=== PATIENT | female | born 1955 | race Caucasian/White ===

== ENCOUNTER → 2017-03-24 09:53 | Outpatient (CLI) | payer MEDICARE, SELFPAY ==
--- NOTE | 2017-03-25 15:40 | PFTCOMP ---
COMPLETE PULMONARY FUNCTION TEST INTERPRETATION Brief HPI: Patient is a 62 year old female, currently under the care of Dr. Leblanc, who presents to [facility] for complete pulmonary function tests secondary to diagnosis of asthma. Respiratory therapist reports good effort and reproducible results. Interpretation: Forced expiration spirometry shows no large airways obstructive ventilatory defect with an FEV1 of 78 % predicted. There is no significant bronchodilator response by ATS criteria. Spirograms are of good quality and plateau slowly, indicating slowly emptying areas of the lungs. The respiratory flow volume loop shows decreased expiratory flow rates at high lung volumes consistent with small airways obstruction. Lung volumes by body plethysmography show a normal total lung capacity at 4.73 L, 97 % predicted. All other lung volumes are within normal limits. Diffusion capacity by carbon monoxide is normal at 74 % predicted. The airway resistance is slightly elevated. Compared to previous pulmonary function tests from 02/08/2016, there has been a significant change in FVC and DLCO. Impression: Grossly normal pulmonary function test with stigmata of small airways disease. There has been worsening in FVC and DLCO compared to previous testing
== END ==
PROVIDERS: Family Provider Internal Medicine; PCP Internal Medicine; Visit Provider Internal Medicine Critical Care Medicine
DX: J45.909 Unspecified asthma, uncomplicated (principal)
CPT/HCPCS: 94060; 94726; 94729

== ENCOUNTER 2017-04-14 16:12 | Emergency (ER) | payer MEDICARE, SELFPAY ==
[2017-04-14 16:13] VITALS: BP 161/83; PULSE 94; RESP 17; TEMP 36.3; O2SAT 97; BMI 34.2
--- NOTE | 2017-04-14 16:33 | CT_ITS ---
STUDY: CT ABDOMEN AND PELVIS WITH CONTRAST REASON FOR EXAM: Female, 62 years old. Lower abdominal pain and nausea, history of Crohn's RADIATION DOSAGE (If Supplied By Facility): CTDIvol = ( 16.01 ) mGy, DLP = ( 1176.30 ) mGycm TECHNIQUE: Transaxial images were obtained from the dome of the diaphragm to the symphysis pubis with oral contrast. 100CC ml of Isovue 300 contrast was administered. Sagittal and coronal images were reconstructed. Individualized dose optimization techniques were used for this CT. COMPARISON: None. FINDINGS: There are mild streaky fibrotic changes of the right middle lobe and right lower lobe. The visualized portions of the heart are within normal limits. Normal liver. Normal gallbladder and extrahepatic biliary system. Normal spleen. Normal pancreas. Normal bilateral adrenal glands. Normal right kidney. Normal left kidney. Normal visualized stomach. There are several mildly distended small bowel loops with air-fluid levels in the mid anterior right abdomen. There is mild short segment wall thickening of one of these loops of bowel best seen on axial images 59 and 60. There is scattered colonic diverticuli with no evidence of associated diverticulitis. The appendix is visualized and appears normal. There are calcified plaques of the abdominal aorta. Normal inferior vena cava. Normal retroperitoneum. Normal urinary bladder. Status post hysterectomy changes are noted. A metallic foreign body is seen in the right adnexa consistent with a tubal ligation clip. There is a tiny amount of free fluid in the deep pelvis. Normal abdominal wall. There are status post posterior spinal fusion changes with interpeduncular screws from the L4-S1 level. There are degenerative changes of the visualized lower thoracic spine. CT/Abdomen/Pelvis WITH Contrast IMPRESSION: 1. Several mildly distended small bowel loops with air-fluid levels in the mid anterior right abdomen, with mild short segment wall thickening of one of these loops of bowel. This finding would be compatible with the clinical history of Crohn's disease. 2. Status post hysterectomy. Metallic foreign body seen in the right adnexa consistent with a tubal ligation clip. 3. There is a tiny amount of free fluid in the deep pelvis. 4. Status post posterior spinal fusion changes with interpeduncular screws from the L4-S1 level. Electronically Signed: Jostin Shukla MD at 18:52 EST , Service support ,
[2017-04-14 16:50] LABS: Absolute Lymphocyte Count 3.08 X10^3/ul (0.83-4.51); Basophil# 0.02 X10^3/uL; Basophil% 0.2 % (0-1); Eosinophil# 0.24 X10^3/uL; Eosinophils% 2.2 % (0-5); Hematocrit 41.7 % (37-47); Hemoglobin 13.6 g/dl (12.0-15.0); Lymphocyte # 3.08 X10^3/ul (4.0); Lymphocyte % 28.2 % (19-41); Mean Corp Hgb Conc 32.6 g/gl (32-36); Mean Corpuscular Hgb 28.3 pg (27.0-32.0); Mean Corpuscular Volume 86.9 fL (81-99); Monocyte# 0.63 X10^3/uL; Monocyte% 5.8 % (0-10); Neutrophil # 6.95 X10^3/uL (2.7-7.7); Neutrophil % 63.4 % (47-70); Platelet Count 325 K/mm3 (150-450); RBC Distribution Width CV 14.5 % (11.6-14.6); RBC Distribution Width SD 45.9 fl (35.1-43.9); White Blood Count 10.9 K/mm3 (4.4-11.0)
[2017-04-14] MEDS: Ondansetron 4 MG/2 ML Vial IV ×2 (16:54→19:29)
[2017-04-14] MEDS: 0.9% Normal Saline 1,000 ML 1000 ML IV (16:55)
[2017-04-14 16:57] LABS: POSITIVE COUNT NO; POSITIVE DIFFERENTIAL NO; POSITIVE MORPHOLOGY NO
[2017-04-14 17:09] LABS: Anion Gap 7 (5-15); BUN 14 mg/dL (7-18); BUN/Creat Ratio 15.4 RATIO (10-20); Calcium,Total 9.3 mg/dL (8.5-10.1); Chloride 104 mmol/L (98-107); Creatinine, Serum 0.91 mg/dL (0.55-1.02); EST Glomerular Filtration Rate 67 mL/min (>60); Est Glom Filt Rate - Afr Amer 81 mL/min (>60); Estimated Creatinine Clearance 56.77 ml/min; Glucose 113 mg/dL (74-106); Potassium 3.8 mmol/L (3.5-5.1); Sodium Level 140 mmol/L (136-145)
--- NOTE | 2017-04-14 17:15 | ED.VISSUMM ---
- ER Visit Summary Date of Service: 04/14/17 Chief Complaint: Abdominal pain History of Present Illness: The patient is a [address] Dickson. She reports she has lower abdominal pain that began yesterday. She reports it is a constant aching pain with episodes of severe cramping. Pain is 9 out of 10 at worst and 8 out of 10 currently. Is worsened by movement or standing. It is relieved by laying down remaining still. She has had nausea without vomiting. She reports her last bowel movement was today. She has had no melena or hematochezia. She has had frequent urination for the past 2 days. No dysuria or hematuria. No fever or chills. Physical Examination: Vitals: Stable. Afebrile. General: Well-nourished and well-developed. Head: Normocephalic atraumatic. Neck: Supple, no lymphadenopathy. No JVD. Nontender. Cardiovascular: Regular rate and rhythm. No murmurs. Respiratory: No respiratory distress. Clear to auscultation bilaterally. Abdominal: Soft, mild tenderness palpation is diffuse over her lower abdomen, this is worst in the left lower quadrant, nondistended, normal bowel sounds. No guarding, rebound, or peritoneal signs. Back: Nontender. Extremities: Nontender, no edema. Skin: Normal color, no rash. Neurologic: Alert and oriented ?3. Cranial nerves II through XII are intact. Normal strength and sensation. Psych: Normal affect. Test Results: CBC is normal. Chem-7 is marked for glucose of 113. Urinalysis is negative. CT abdomen pelvis with p.o. and IV contrast shows normal appendix. It shows several mildly distended small bowel loops with air-fluid levels with mild short segment wall thickening of 1 of these loops. This is compatible with her history of Crohn's disease. Emergency Department Course and Treatment: Patient had an IV placed. She was given a liter of normal saline. She is given morphine and Zofran IV. She is resting comfortably. I again discussed the possibility of Crohn's with the patient. She states that she had a colonoscopy 2 years ago that did not show Crohn's disease and she has never been told she has Crohn's disease. Treatment Plan: At this time I do not have a good explanation for the findings on the CT. She was discussed with Dr. Crenshaw who is not familiar with her. The patient feels well and would like to go home. She be discharged instructions to follow-up with Dr. Dickson tomorrow for further evaluation and potential referral to gastroenterology. She should also be able to get the results of her colonoscopy and reviewed this. She given a prescription for Percocet and Zofran. Return to the emergency department for any worsening symptoms. Disposition: To home in improved and stable condition. Impression: 1. Abdominal pain, uncertain cause. This note was generated with [employer] dictation software. It may contain incorrect words, spelling, and punctuation that were not noted in review of the chart prior to signing ED Disposition - Plan for ED Patient: Disposition: Home or Assisted Living Chief Complaint: Abd Pain Instructions: ED Abdominal Pain Unkn Cause Prescriptions: Oxycodone HCl/Acetaminophen [Percocet 5/325] 1 tablet PO Q6H PRN PRN 5 Days #20 tablet PRN Reason: Pain Ondansetron [Zofran Odt] 4 mg PO Q8H PRN PRN #10 tablet PRN Reason: Nausea Referrals: Elin Dickson DO [Primary Care Provider] - 1 Day for another exam
[2017-04-14 18:29] LABS: Mucous, Urine 0 SEEN /hpf (<or=2+); Red Blood Cells-Urine 0 SEEN /hpf (0-5)
[2017-04-14 18:33] LABS: Color, Urine Straw (Yellow); Glucose, Dipstick Normal (Normal); Ketone-Dipstick Negative (Negative); Leukocyte Esterase-Dipstick 25 /ul (Negative); Nitrite-Dipstick Negative (Negative); Occult Blood-Urine Negative /ul (Negative); Protein-Dipstick Negative (Negative); Urine Bilirubin Dipstick Negative (Negative); Urine Clarity Cloudy (Clear); Urine Urobilinogen Normal (Normal); Urine pH 6.5 (5.0 - 8.0)
[2017-04-14 18:53] LABS: Bacteria 1+ /hpf (None Seen); Squamous Epithelial Cells - UA 5-10 SEEN /hpf (5-10); White Blood Cells 0-5 SEEN /hpf (0-5)
[2017-04-14 19:04] VITALS: BP 161/80; PULSE 81; RESP 16; O2SAT 97
[2017-04-14 19:42] VITALS: BP 128/73; PULSE 75; RESP 18; O2SAT 97
== END 2017-04-14 19:46 | disposition home or self-care (01) ==
LOC: ED 17:20
PROVIDERS: Emergency Provider Emergency Medicine; Family Provider Internal Medicine; PCP Internal Medicine
DX: R10.32 Left lower quadrant pain (principal); R10.31 Right lower quadrant pain; I10 Essential (primary) hypertension; E78.00 Pure hypercholesterolemia, unspecified; J44.9 Chronic obstructive pulmonary disease, unspecified; K21.9 Gastro-esophageal reflux disease without esophagitis; Z90.710 Acquired absence of both cervix and uterus; Z79.899 Other long term (current) drug therapy
CPT/HCPCS: 74177; 80048; 81001; 85025; 96361; 96374; 96375; 96376; 99283; J7030; Q9967; A4216; J2405

== ENCOUNTER → 2017-04-28 11:48 | Outpatient (CLI) | payer MEDICARE, SELFPAY ==
--- NOTE | 2017-04-28 11:52 | RAD_ITS ---
STUDY: X-RAY - LEFT SHOULDER REASON FOR EXAM: Female, 62 years old. Persistent shoulder pain one week after injury TECHNIQUE: 4 view(s) of the shoulder. COMPARISON: None. FINDINGS: Normal glenohumeral articulation. Normal acromioclavicular joint. Normal acromion. Normal humeral head and visualized proximal humerus. Submillimeter calcific density at the margin of the greater tubercle consistent with a focal avulsion injury versus chronic calcific tendinitis. There is no demonstrated osseous destructive lesion. Normal visualized pulmonary apex. RAD/Shoulder min 2 Views IMPRESSION: Submillimeter cortical avulsion injury versus chronic calcific tendinitis at the margin of the greater tubercle. Electronically Signed: Armin Novak MD at 12:34 EDT , Service support ,
== END ==
PROVIDERS: Family Provider Internal Medicine; PCP Internal Medicine; Visit Provider Internal Medicine
DX: M25.512 Pain in left shoulder (principal)
CPT/HCPCS: 73030

== ENCOUNTER → 2017-05-05 17:41 | Outpatient (CLI) | payer MEDICARE, SELFPAY ==
--- NOTE | 2017-05-05 18:15 | MRI_ITS ---
STUDY: MRI LEFT SHOULDER REASON FOR EXAM: Female, 62 years old. Pain. Fall. TECHNIQUE: Standardized fat and water weighted pulse sequences were obtained in all 3 orthogonal planes. COMPARISON: X-ray April 16, 2017. FINDINGS: Tendinosis with thickening and high-grade bursal surface and intrasubstance distal tendon tear, series 6 image . There is infraspinatus tendinosis with tendon thickening, but without a demonstrated tendon tear. Normal subscapularis tendon. Normal teres minor tendon. Normal supraspinatus muscle. Normal infraspinatus muscle. Normal subscapularis muscle. Normal teres minor muscle. There is a small volume joint effusion of the glenohumeral joint. Normal humeral head and visualized proximal humerus. Normal biceps labral complex. Normal intracapsular long biceps tendon. Normal labrum. Normal capsulo- ligamentous complex. Normal rotator interval. There is mild osteoarthritis of the acromioclavicular articulation. There is a Type II morphology (curved) acromion, with a neutral orientation. There is minimal fluid distention of the subacromial bursa, consistent with mild subacromial-subdeltoid bursitis. Normal visualized coracohumeral and coracoacromial ligaments. Normal quadrilateral space. Normal axillary space. Normal deltoid muscle. Normal trapezius muscle. MRI/Upper Ext Joint Only(Routine) IMPRESSION: High-grade tear of the supraspinatus tendon. Electronically Signed: Sabas Fox MD at 23:21 EDT , Service support ,
== END ==
PROVIDERS: Family Provider Internal Medicine; PCP Internal Medicine; Visit Provider Internal Medicine
DX: S46.012A Strain of muscle(s) and tendon(s) of the rotator cuff of left shoulder, initial encounter (principal); W19.XXXA Unspecified fall, initial encounter
CPT/HCPCS: 73221

== ENCOUNTER → 2017-05-08 07:57 | Outpatient (CLI) | payer MEDICARE, SELFPAY ==
--- NOTE | 2017-05-08 08:00 | RAD_ITS ---
STUDY: SMALL BOWEL FOLLOW-THROUGH STUDY REASON FOR EXAM: Female, 62 years old. ABD PAIN/ABN CT SCAN CRAMPING, LOWER ABD PAIN/PRESSURE ON AND OFF DIARRHEA/CONSTIPATION RADIATION DOSAGE (If Supplied By Facility): CTDIvol = ( ) mGy, DLP = ( ) mGycm FLUOROSCOPY TIME (if supplied): ( ) minutes/seconds TECHNIQUE: Multiple views of the abdomen were performed after barium ingestion fluoroscopic examination of the terminal ileal loop is also performed with multiple spot views were obtained. 7 overhead films were obtained. FINDINGS: LAMINATE FLOOR INSTALLER VIEW: The bowel gas pattern is unremarkable there is no evidence of free air in the abdomen. SMALL BOWEL FOLLOW-THROUGH: Normal progression of barium is seen throughout different parts of the small bowel the cecum is reached at approximately 150 minutes after barium ingestion. The duodenum, jejunum, and ileum mucosal pattern is unremarkable. Fluoroscopic examination of the terminal loop shows no abnormality. RAD/Small Bowel Series Only IMPRESSION: Unremarkable study. Electronically Signed: Justin Ng MD at 9:33 EDT Tel , Service support ,
== END ==
PROVIDERS: Family Provider Internal Medicine; PCP Internal Medicine; Visit Provider Internal Medicine Gastroenterology
DX: R93.8 Abnormal findings on diagnostic imaging of other specified body structures (principal); R10.9 Unspecified abdominal pain
CPT/HCPCS: 74250

== ENCOUNTER → 2017-07-06 10:28 | Outpatient (CLI) | payer MEDICARE, SELFPAY ==
--- NOTE | 2017-07-06 10:30 | BI_ITS ---
MAMMOGRAPHY - BILATERAL SCREENING REASON FOR EXAM: Female, 62 years old. Routine annual screening examination. PERTINENT HISTORY: Remote right excisional breast biopsy. TECHNIQUE: Digital bilateral breast francisco (3D mammographic acquisition) in the CC and MLO projections. 2-D mediolateral oblique (MLO) and craniocaudad (CC) views of both breasts were obtained. CAD: Full Field Digital Mammography with Computer Added Detection was performed. COMPARISON: Comparison is made with prior study dated June 30, 2016. FINDINGS: Breast Composition: There are scattered areas of fibroglandular density. There are no dominant masses or suspicious calcifications. Stable benign-appearing bilateral axillary lymph nodes. No other significant abnormalities are identified. There has been no significant change since the prior study. BI/SCREENING MAMM (CAD), BILAT IMPRESSION: Stable bilateral screening mammogram. Yearly follow-up mammogram recommended. (A) ASSESSMENT CATEGORY: BIRADS Category 2: Benign. A letter regarding these results will be sent to the patient by the facility within 30 days. Approximately 10% of breast cancers are not detected by mammography. A normal mammogram should not delay biopsy of a clinically suspicious abnormality. [id number] Electronically Signed: Tashi Mathias MD at 8:39 EDT Tel [phone], Service support ,
== END ==
PROVIDERS: Family Provider Internal Medicine; PCP Internal Medicine; Visit Provider Internal Medicine
DX: Z12.31 Encounter for screening mammogram for malignant neoplasm of breast (principal)
CPT/HCPCS: 77063; 77067

== ENCOUNTER 2017-07-09 15:44 | Observation (INO) | payer MEDICARE, SELFPAY ==
[2017-07-09] VITALS (11 sets, daily range): BP systolic 131–147; BP diastolic 64–79; PULSE 75–86; RESP 14–18; TEMP 36.6–37.1; O2SAT 95–98; BMI 33.5; BMI 33.6; BMI 33.2
--- NOTE | 2017-07-09 15:57 | RAD_ITS ---
STUDY: X-RAY CHEST REASON FOR EXAM: Female, 62 years old. Chest pain TECHNIQUE: Frontal and lateral views of the chest. COMPARISON: 09/01/2016. FINDINGS: The lungs are clear and expanded. There is no demonstrated pleural abnormality. Normal size heart. Normal mediastinum and clari. Normal visualized pulmonary arteries. Normal visualized aortic arch and descending thoracic aorta. Normal visualized thoracic spine. Normal visualized ribs, clavicles, and shoulders. There is no demonstrated abnormality of the visualized soft tissue structures of the upper abdomen. RAD/Chest 1 View (Portable) IMPRESSION: Normal x-ray examination of the chest. Electronically Signed: George Riojas MD at 16:28 EDT , Service support ,
[2017-07-09] MEDS: Aspirin 81 MG TAB.CHEW 324 MG PO (16:09)
[2017-07-09 16:20] LABS: Absolute Lymphocyte Count 2.64 X10^3/ul (0.83-4.51); Absolute Neutrophil Count 6.9 X10^3/uL (2.0-7.7); Basophil# 0.04 X10^3/uL; Basophil% 0.4 % (0-1); Eosinophil# 0.25 X10^3/uL; Eosinophils% 2.4 % (0-5); Hematocrit 39.6 % (37-47); Hemoglobin 13.1 g/dl (12.0-15.0); Lymphocyte # 2.64 X10^3/ul (4.0); Mean Corp Hgb Conc 33.1 g/gl (32-36); Mean Corpuscular Hgb 28.3 pg (27.0-32.0); Mean Corpuscular Volume 85.5 fL (81-99); Monocyte# 0.75 X10^3/uL; Monocyte% 7.1 % (0-10); Neutrophil # 6.87 X10^3/uL (2.7-7.7); Neutrophil % 64.8 % (47-70); Platelet Count 342 K/mm3 (150-450); RBC Distribution Width CV 13.7 % (11.6-14.6); RBC Distribution Width SD 41.9 fl (35.1-43.9); Red Blood Count 4.63 M/mm3 (4.2-5.4); White Blood Count 10.6 K/mm3 (4.4-11.0)
[2017-07-09 16:26] LABS: POSITIVE COUNT NO; POSITIVE DIFFERENTIAL NO; POSITIVE MORPHOLOGY NO
[2017-07-09 16:30] LABS: Anion Gap 9 (5-15); BUN 14 mg/dL (7-18); BUN/Creat Ratio 14.1 RATIO (10-20); Calcium,Total 9.3 mg/dL (8.5-10.1); Chloride 107 mmol/L (98-107); EST Glomerular Filtration Rate 60 mL/min (>60); Est Glom Filt Rate - Afr Amer 73 mL/min (>60); Estimated Creatinine Clearance 51.66 ml/min; Glucose 83 mg/dL (74-106); Potassium 3.8 mmol/L (3.5-5.1); Sodium Level 142 mmol/L (136-145)
--- NOTE | 2017-07-09 16:38 | ED.VISSUMM ---
- ER Visit Summary Date of Service: 07/09/17 Chief Complaint: Chest pain History of Present Illness: The patient is a 62 F who presents with chest pain that began last night. Patient states the pain began approximately 8 PM last night. Patient states the pain has been constant. Patient states the pain started as a tightness but has also felt like a burning and sharp at times. Patient states the pain is over the substernal area. Patient states the pain became worse with exertion. Patient states nothing seems to help with it. He does admit to some shortness of breath and a mild cough. Patient denies any nausea or vomiting. Patient denies any diaphoresis. Patient denies any lightheadedness or palpitations. Patient states she had a recent endoscopy and felt like she was having some reflux symptoms as well. Past medical history includes hypertension. Patient has a family history of coronary artery disease at an early age. Patient also has a history of previous coronary artery disease. Physical Examination: Vital signs are stable. Patient is afebrile. Patient is in no acute distress. Heart was regular rate and rhythm. Lungs are clear and equal bilaterally. There is good respiratory effort noted. Abdomen is soft and nontender. Cranial nerves II through XII are intact. There are no focal motor or sensory deficits noted. Oral mucosa is pink and moist. Neck is supple. Trachea is midline. No JVD or lymphadenopathy noted. The remaining physical exam is within normal limits. Test Results: EKG showed normal sinus rhythm with a rate of 85. There are no acute ST or T-wave changes. Portable chest x-ray was obtained. There is no acute cardiopulmonary process noted. CBC, basic metabolic profile, and troponin were obtained were all within normal limits. Emergency Department Course and Treatment: Patient was given aspirin and sublingual nitroglycerin here. Patient had improvement of her tightness in her chest after the sublingual nitroglycerin. Patient has a HEART score of 4. Case was discussed with Dr. De Jesus. Patient will be admitted for observation for further evaluation of her chest pain. Patient understood and was agreeable with the plan. All questions were answered. Disposition: Admit to hospital Impression: Chest pain This note was generated with [employer] dictation software. It may contain incorrect words, spelling, and punctuation that were not noted in review of the chart prior to signing ED Disposition - Plan for ED Patient: Disposition: Acute Care Hospital [facility] Chief Complaint: Chest Pain Diagnosis: Chest pain Referrals: Elin Dickson DO [Primary Care Provider] -
--- NOTE | 2017-07-09 16:42 | ED.DCSUM_ITS ---
- ER Visit Summary Date of Service: 07/09/17 Chief Complaint: Chest pain History of Present Illness: The patient is a 62 F who presents with chest pain that began last night. Patient states the pain began approximately 8 PM last night. Patient states the pain has been constant. Patient states the pain started as a tightness but has also felt like a burning and sharp at times. Patient states the pain is over the substernal area. Patient states the pain became worse with exertion. Patient states nothing seems to help with it. He does admit to some shortness of breath and a mild cough. Patient denies any nausea or vomiting. Patient denies any diaphoresis. Patient denies any lightheadedness or palpitations. Patient states she had a recent endoscopy and felt like she was having some reflux symptoms as well. Past medical history includes hypertension. Patient has a family history of coronary artery disease at an early age. Patient also has a history of previous coronary artery disease. Physical Examination: Vital signs are stable. Patient is afebrile. Patient is in no acute distress. Heart was regular rate and rhythm. Lungs are clear and equal bilaterally. There is good respiratory effort noted. Abdomen is soft and nontender. Cranial nerves II through XII are intact. There are no focal motor or sensory deficits noted. Oral mucosa is pink and moist. Neck is supple. Trachea is midline. No JVD or lymphadenopathy noted. The remaining physical exam is within normal limits. Test Results: EKG showed normal sinus rhythm with a rate of 85. There are no acute ST or T-wave changes. Portable chest x-ray was obtained. There is no acute cardiopulmonary process noted. CBC, basic metabolic profile, and troponin were obtained were all within normal limits. Emergency Department Course and Treatment: Patient was given aspirin and sublingual nitroglycerin here. Patient had improvement of her tightness in her chest after the sublingual nitroglycerin. Patient has a HEART score of 4. Case was discussed with Dr. De Jesus. Patient will be admitted for observation for further evaluation of her chest pain. Patient understood and was agreeable with the plan. All questions were answered. Disposition: Admit to hospital Impression: Chest pain This note was generated with [employer] dictation software. It may contain incorrect words, spelling, and punctuation that were not noted in review of the chart prior to signing ED Disposition - Plan for ED Patient: Disposition: Acute Care Hospital [facility] Chief Complaint: Chest Pain Diagnosis: Chest pain Referrals: Elin Dickson DO [Primary Care Provider] -
--- NOTE | 2017-07-09 16:52 | PCM.HP.STD ---
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 The patient is a 62 year old F who presents to the emergency room with chest pain. Patient states this began yesterday evening after having dinner with her daughter. She states after dinner, she developed tightness and discomfort in the substernal/epigastric area. She states she had an EGD and colonoscopy recently on Thursday and assumed her symptoms were related to that. She states she has not had an appetite following EGD/colonoscopy. Patient states she took acid reflux medication without any improvement in symptoms. She notes possible associated shortness of breath although she does have chronic lung disease. She denies dizziness, lightheadedness, palpitations, pain radiation, diaphoresis. Denies other associated symptoms. Patient states she had a catheterization approximately [address] Gudino which was reported to be normal. She has had 2 stress tests in the past which were also normal. She states she is unable to do treadmill stress test due to asthma. Her other past medical history includes hypertension, hyperlipidemia, GERD, asthma, chronic back pain, history of Crohn's disease. 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) Asthma (Chronic) Allergies buprenorphine [From Butrans] Allergy (Mild, Verified 07/09/17 15:48) nortriptyline Allergy (Mild, Verified 07/09/17 15:48) omeprazole Allergy (Mild, Verified 07/09/17 15:48) Penicillins Allergy (Mild, Verified 07/09/17 15:48) terbinafine Allergy (Mild, Verified 07/09/17 15:48) codeine Allergy (Verified 07/09/17 15:48) Unknown naproxen [From Naprosyn] Allergy (Verified 07/09/17 15:48) Unknown nortriptyline HCl [From Pamelor] Allergy (Verified 07/09/17 15:48) Unknown Home Medications: Ambulatory Orders Medication Instructions Recorded Albuterol Aerosols [Ventolin 2.5 mg INHALATION Q4HWA.RT 11/05/15 Aerosols] Enalapril Maleate [Vasotec] 10 mg PO DAILY 11/05/15 Hydrochlorothiazide [Hctz] 12.5 mg PO DAILY 11/05/15 Pantoprazole Sodium [Protonix] 40 mg PO DAILY 11/05/15 Simvastatin [Zocor] 40 mg PO QHS 11/05/15 albuterol sulfate HFA 90 2 puff INHALATION Q6H PRN PRN #3 02/26/17 mcg/actuation aerosol inhaler device fluticasone 100 mcg-vilanterol 25 1 inh INHALATION Q24H #1 device 02/26/17 mcg/dose powder for inhalation Ondansetron [Zofran Odt] 4 mg PO Q8H PRN PRN #10 tablet 04/14/17 Oxycodone HCl/Acetaminophen 1 tablet PO Q6H PRN PRN 5 Days #20 04/14/17 [Percocet 5/325] tablet Zolpidem Tartrate [Ambien] 10 mg PO QHS 07/09/17 Surgical History: tonsillectomy, - - Partial hysterectomy, tubal ligation, right breast biopsy, lumbar back surgery. Psychiatric History: No pertinent psych hx ONLINE MARKETER History: No pertinent ONLINE MARKETER history Lives: Spouse/ Significant Other Smoking Status: Never smoker Alcohol: None Drugs: None - *Family History Maternal History Items: Pulmonary Disease Paternal History Items: Heart Disease Review of Systems Constitutional: Denies: Chills, Fever, Weight Change HEENT: Denies: Head Aches, Sinus Congestion, Sinus Drainage Cardiovascular: Reports: Chest Pain, Chest Tightness. Denies: Edema, Light Headedness, Palpitations, Syncope Respiratory: Reports: Shortness of breath upon exertion. Denies: Cough, Wheezing Gastrointestinal: Denies: Abdominal Pain, Nausea, Vomiting Genitourinary: Denies: Dysuria Musculoskeletal: Denies: Joint Pain, Joint Tenderness Skin: Denies: Rash, Wounds Neurological: Denies: Numbness, Tingling, Focal weakness Psychiatric: Denies: Anxiety, Depression, Homicidal Ideations, Suicidal Ideations Hematologic/ Lymphatic: Denies: Easy Bruising, Easy Bleeding VTE Information - Inpt Only VTE Present on Admission: No VTE Mechan Device Prophylaxis: None VTE Pharm Prophylaxis ordered?: Yes Patient Problems: Active and Suspected Problems (Last Reviewed 02/26/17 @ 09:04 by Raquel Parham) Chest pain (Acute) - Physical Exam General: Alert, Oriented x3, Cooperative HEENT: Atraumatic, PERRLA, EOMI, Normocephalic Neck: Supple, No JVD, Negative Carotid Bruits Lungs: Clear to auscultation, Diminished Cardiovascular: Regular rate, Regular Rhythm, Normal S1, Normal S2, No murmurs Abdomen: Bowel Sounds Present, Soft, Non Tender, Non-Distended, Obese Extremities: No clubbing, No cyanosis, No edema, Capillary Refill Less than 3 Seconds Skin: No rashes, No breakdown Musculoskeletal: No Tenderness to Palpation of Joints or Extremities Neurological: Cranial nerves II-XII grossly intact, Neuro grossly intact Psych/Mental Status: Normal Affect, Appropriate Vital Signs Temp Pulse Resp BP Pulse Ox 98.7 F 86 18 131/64 H 98 07/09/17 15:45 07/09/17 16:27 07/09/17 15:45 07/09/17 16:27 07/09/17 16:02 Oxygen Delivery Method Room Air Weight: 88.8 kg Body Mass Index (BMI) 33.5 Laboratory Tests Past 24 Hrs 07/09/17 07/09/17 16:00 16:00 WBC 10.6 RBC 4.63 Hgb 13.1 Hct 39.6 MCV 85.5 MCH 28.3 MCHC 33.1 RDW 13.7 RDW Differential 41.9 Plt Count 342 MPV 10.0 Immature Gran % (Auto) 0.300 Neut % (Auto) 64.8 Lymph % (Auto) 25.0 Camp % (Auto) 7.1 Eos % (Auto) 2.4 Baso % (Auto) 0.4 Absolute Neuts (auto) 6.9 Absolute Lymphs (auto) 2.64 Total Counted Not Reportable Sodium 142 Potassium 3.8 Chloride 107 Carbon Dioxide 26.0 Anion Gap 9 BUN 14 Creatinine 1.00 Estim Creat Clear Calc 51.66 Est GFR (MDRD) Af Amer 73 Est GFR (MDRD) Non-Af 60 BUN/Creatinine Ratio 14.1 Glucose 83 Calcium 9.3 Troponin I < 0.015 Assessment/Plan Active and Suspected Problems (Last Reviewed 02/26/17 @ 09:04 by Raquel Parham) Chest pain (Acute) 1. Chest pain-EKG in ER without evidence of ischemia. Chest x-ray unremarkable. Troponin negative ?1. Trend enzymes. Plan for a chemical stress test in a.m. Continue aspirin. 2. Asthma- follows with Dr. Leblanc. No acute exacerbation. Continue home inhaler regimen. 3. Hypertension-stable, continue home regimen of Vasotec and HCTZ. 4. Hyperlipidemia-continue statin. 5. GERD-continue PPI. 6. Allergic rhinitis 7. Chronic back pain-history of lumbar surgery ?2-continue as needed pain regimen. DVT prophylaxis-Lovenox subcu. This patient was seen by MOLLY Braden under the supervision of Dr. De Jesus.
--- NOTE | 2017-07-09 17:50 | EKG12_ITS ---
Test Reason : CHEST PAIN Blood Pressure : / mmHG Vent. Rate : 085 BPM Atrial Rate : 085 BPM P-R Int : 136 ms QRS Dur : 082 ms QT Int : 378 ms P-R-T Axes : 024 015 043 degrees QTc Int : 449 ms Normal sinus rhythm Low voltage QRS (limb leads) Confirmed by ROGELIO SANTANA, KARY ([id number]), video editor DOUG CHAPPELL ([id number]) on 07/15/2017 1:40:22 PM Referred By: FAZAL Confirmed By:KARY MERCADO MD
[2017-07-09 18:23] LABS: Lipase 119 U/L (73-393); Magnesium 2.2 mg/dL (1.6-2.6)
[2017-07-09] MEDS: Ipratropium/Albuterol Sulfate 3 ML AMPUL.NEB INHALATION (19:04)
[2017-07-09] MEDS: Morphine 4 MG/ML Syringe IV (20:48)
[2017-07-09] MEDS: 0.9% NaCl Peripheral Flush Adult/Peds IV ×2 (20:49→23:57)
[2017-07-09] MEDS: oxyCODONE 5 MG Tablet PO (22:11)
[2017-07-09] MEDS: Zolpidem Tartrate 5 MG Tablet 10 MG PO (22:11)
[2017-07-09] MEDS: Atorvastatin Calcium 20 MG Tablet PO (22:11)
[2017-07-09] MEDS: 0.9% Normal Saline 1,000 ML 100 ML IV (23:57)
[2017-07-10] VITALS (8 sets, daily range): BP systolic 103–121; BP diastolic 43–65; PULSE 73–81; RESP 16–19; TEMP 36.6–37; O2SAT 95–98
[2017-07-10 05:07] LABS: Hematocrit 35.3 % (37-47); Hemoglobin 11.7 g/dl (12.0-15.0); Mean Corp Hgb Conc 33.1 g/gl (32-36); Mean Corpuscular Hgb 28.3 pg (27.0-32.0); Mean Corpuscular Volume 85.3 fL (81-99); Mean Platelet Vol. 9.3 fl (6.2-12.0); Platelet Count 273 K/mm3 (150-450); RBC Distribution Width CV 13.8 % (11.6-14.6); RBC Distribution Width SD 42.8 fl (35.1-43.9); Red Blood Count 4.14 M/mm3 (4.2-5.4); White Blood Count 7.6 K/mm3 (4.4-11.0)
[2017-07-10 05:11] LABS: Scan Indicated on CBC? Y/N NO
[2017-07-10 05:18] LABS: International Normalized Ratio 1.1; Prothrombin Time (Protime)PT. 14.3 SECONDS (11.7-14.9)
[2017-07-10 05:19] LABS: Partial Thromboplast Time 31.6 Seconds (24.1-36.2)
[2017-07-10 05:23] LABS: Anion Gap 7 (5-15); BUN 12 mg/dL (7-18); BUN/Creat Ratio 14.9 RATIO (10-20); Calcium,Total 8.5 mg/dL (8.5-10.1); Chloride 111 mmol/L (98-107); Cholesterol 144 mg/dL (200); Creatinine, Serum 0.81 mg/dL (0.55-1.02); EST Glomerular Filtration Rate 77 mL/min (>60); Est Glom Filt Rate - Afr Amer 93 mL/min (>60); Estimated Creatinine Clearance 63.78 ml/min; Glucose 91 mg/dL (74-106); High Density Lipoprotein 35 mg/dL; Potassium 4.1 mmol/L (3.5-5.1); Sodium Level 144 mmol/L (136-145); Triglycerides 143 mg/dL; Very Low Density Lipoprotein 29 mg/dL (5-40)
[2017-07-10] MEDS: Lisinopril 10 MG Tablet PO (05:27)
[2017-07-10] MEDS: Aspirin E.C. 81 MG Tablet PO (05:28)
--- NOTE | 2017-07-10 10:56 | DCINST_ITS ---
- Discharge Diagnoses Current Active Problems: Current Active and Chronic Problems (Last Reviewed 02/26/17 @ 09:04 by Raquel Parham) Chest pain (Acute) You will use the following diet at home:: Cardiac Discharge Activity: Return to Normal Activity Call your doctor if you observe: Shortness of breath, Dizziness, Fainting spells , Chest pain, Increased palpitations (irregular heartbeat) Allergies/Adverse Reactions: Allergies buprenorphine [From Butrans] Allergy (Mild, Verified 07/09/17 17:13) Hives terbinafine Allergy (Mild, Verified 07/09/17 17:13) Rash codeine Allergy (Verified 07/09/17 15:48) Unknown nortriptyline Adverse Reaction (Mild, Verified 07/09/17 17:13) Upset Stomach omeprazole Adverse Reaction (Mild, Verified 07/09/17 17:13) Diarrhea Penicillins Adverse Reaction (Mild, Verified 07/09/17 17:13) yeast infection naproxen [From Naprosyn] Adverse Reaction (Verified 07/09/17 17:13) gi upset nortriptyline HCl [From Pamelor] Adverse Reaction (Verified 07/09/17 17:13) Upset Stomach Medications to take at Discharge Albuterol Aerosols [Ventolin Aerosols] 2.5 mg INHALATION Q4HWA.RT PRN 11/05/15 Hydrochlorothiazide [Hctz] 12.5 mg PO DAILY 11/05/15 Pantoprazole Sodium [Protonix] 40 mg PO DAILY 11/05/15 Simvastatin [Zocor] 40 mg PO QHS 11/05/15 albuterol sulfate HFA 90 mcg/actuation aerosol inhaler 2 puff INHALATION Q6H PRN PRN #3 device 02/26/17 Fluticasone/Vilanterol [Breo Ellipta 200-25 Mcg INH] 1 each IH DAILY 07/09/17 Lisinopril [Zestril] 10 mg PO QHS 07/09/17 Zolpidem Tartrate [Ambien] 10 mg PO QHS PRN 07/09/17 Primary Care Physician: Elin Dickson DO [Primary Care Provider] - Please follow up with your Primary Care Physician in: 1 Week Proposed Discharge Date: 07/10/17
--- NOTE | 2017-07-10 10:56 | PCM.DC.SUM ---
Discharge Date and Diagnosis Date of Admission: 07/09/17 Date of Discharge: 07/10/17 - Primary Discharge Diagnosis Active and Suspected Problems (Last Reviewed 02/26/17 @ 09:04 by Raquel Parham) 1. 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 Electronically Signed: George Riojas MD at 16:28 EDT , Service support , Operations: None Procedures: Stress test Summary of Care Provided: The patient is a 62 year old F admitted 07/05/2013 due to chest pain. Her past medical history includes hypertension, hyperlipidemia, GERD, asthma, chronic back pain, history of Crohn's disease. Patient had an EGD/colonoscopy 07/07/2017 at outside facility, results unknown. EKG without evidence of ischemia. Chest x-ray unremarkable. Troponin negative. Patient underwent chemical stress test which was negative for ischemia. Suspect patient's epigastric pain is related to gastritis. Recommend increasing PPI to twice daily for 1 week and see if this improves her symptoms. Continue outpatient follow-up with gastroenterology and primary care physician. Other chronic medical conditions as noted above are stable at this time. General: Alert, Oriented x3, Cooperative HEENT: Atraumatic, PERRLA, EOMI, Normocephalic Neck: Supple, No JVD, Negative Carotid Bruits Lungs: Clear to auscultation, Diminished Cardiovascular: Regular rate, Regular Rhythm, Normal S1, Normal S2, No murmurs Abdomen: Bowel Sounds Present, Soft, Non Tender, Non-Distended, Obese Extremities: No clubbing, No cyanosis, No edema, Capillary Refill Less than 3 Seconds Skin: No rashes, No breakdown Musculoskeletal: No Tenderness to Palpation of Joints or Extremities Neurological: Cranial nerves II-XII grossly intact, Neuro grossly intact Psych/Mental Status: Normal Affect, Appropriate Patient seen exam prior to discharge. Physical assessment as noted above. Patient stable for discharge home with further follow-up with primary care physician in 1 week and gastroenterology as previously scheduled. This patient was seen by MOLLY Braden under the supervision of Dr. Goodwin. Discharge Diet: Low fat/ Low Cholesterol Discharge Activity: Return to Normal Activity Call your doctor if you observe: Shortness of breath, Dizziness, Fainting spells, Chest pain, Increased palpitations (irregular heartbeat) Home Medications: Medications to take at Discharge Albuterol Aerosols [Ventolin Aerosols] 2.5 mg INHALATION Q4HWA.RT PRN 11/05/15 Hydrochlorothiazide [Hctz] 12.5 mg PO DAILY 11/05/15 Pantoprazole Sodium [Protonix] 40 mg PO DAILY 11/05/15 Simvastatin [Zocor] 40 mg PO QHS 11/05/15 albuterol sulfate HFA 90 mcg/actuation aerosol inhaler 2 puff INHALATION Q6H PRN PRN #3 device 02/26/17 Fluticasone/Vilanterol [Breo Ellipta 200-25 Mcg INH] 1 each IH DAILY 07/09/17 Lisinopril [Zestril] 10 mg PO QHS 07/09/17 Zolpidem Tartrate [Ambien] 10 mg PO QHS PRN 07/09/17 Primary Care Physician: Elin Dickson DO [Primary Care Provider] - Please follow up with your Primary Care Physician in: 1 Week Disposition: Home Minutes spent on discharge:: 35 Patient Condition:: Stable Medical Necessity - Tobacco Use Smoking Status: Never smoker Meaningful Use Info Meaningful Use Diagnoses (Choose all that apply): None applicable
--- NOTE | 2017-07-10 11:02 | DS.PCM_ITS ---
Discharge Date and Diagnosis Date of Admission: 07/09/17 Date of Discharge: 07/10/17 - Primary Discharge Diagnosis Active and Suspected Problems (Last Reviewed 02/26/17 @ 09:04 by Raquel Parham ) 1. 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 Electronically Signed: George Riojas MD at 16:28 EDT , Service support , Operations: None Procedures: Stress test Summary of Care Provided: The patient is a 62 year old F admitted 07/05/2013 due to chest pain. Her past medical history includes hypertension, hyperlipidemia, GERD, asthma, chronic back pain, history of Crohn's disease. Patient had an EGD/colonoscopy 2017 at outside facility, results unknown. EKG without evidence of ischemia. Chest x-ray unremarkable. Troponin negative. Patient underwent chemical stress test which was negative for ischemia. Suspect patient's epigastric pain is related to gastritis. Recommend increasing PPI to twice daily for 1 week and see if this improves her symptoms. Continue outpatient follow-up with gastroenterology and primary care physician. Other chronic medical conditions as noted above are stable at this time. General: Alert, Oriented x3, Cooperative HEENT: Atraumatic, PERRLA, EOMI, Normocephalic Neck: Supple, No JVD, Negative Carotid Bruits Lungs: Clear to auscultation, Diminished Cardiovascular: Regular rate, Regular Rhythm, Normal S1, Normal S2, No murmurs Abdomen: Bowel Sounds Present, Soft, Non Tender, Non-Distended, Obese Extremities: No clubbing, No cyanosis, No edema, Capillary Refill Less than 3 Seconds Skin: No rashes, No breakdown Musculoskeletal: No Tenderness to Palpation of Joints or Extremities Neurological: Cranial nerves II-XII grossly intact, Neuro grossly intact Psych/Mental Status: Normal Affect, Appropriate Patient seen exam prior to discharge. Physical assessment as noted above. Patient stable for discharge home with further follow-up with primary care physician in 1 week and gastroenterology as previously scheduled. This patient was seen by MOLLY Braden under the supervision of Dr. Goodwin. Discharge Diet: Low fat/ Low Cholesterol Discharge Activity: Return to Normal Activity Call your doctor if you observe: Shortness of breath, Dizziness, Fainting spells , Chest pain, Increased palpitations (irregular heartbeat) Home Medications: Medications to take at Discharge Albuterol Aerosols [Ventolin Aerosols] 2.5 mg INHALATION Q4HWA.RT PRN 11/05/15 Hydrochlorothiazide [Hctz] 12.5 mg PO DAILY 11/05/15 Pantoprazole Sodium [Protonix] 40 mg PO DAILY 11/05/15 Simvastatin [Zocor] 40 mg PO QHS 11/05/15 albuterol sulfate HFA 90 mcg/actuation aerosol inhaler 2 puff INHALATION Q6H PRN PRN #3 device 02/26/17 Fluticasone/Vilanterol [Breo Ellipta 200-25 Mcg INH] 1 each IH DAILY 07/09/17 Lisinopril [Zestril] 10 mg PO QHS 07/09/17 Zolpidem Tartrate [Ambien] 10 mg PO QHS PRN 07/09/17 Primary Care Physician: Elin Dickson DO [Primary Care Provider] - Please follow up with your Primary Care Physician in: 1 Week Disposition: Home Minutes spent on discharge:: 35 Patient Condition:: Stable Medical Necessity - Tobacco Use Smoking Status: Never smoker Meaningful Use Info Meaningful Use Diagnoses (Choose all that apply): None applicable
[2017-07-10] MEDS: Ipratropium/Albuterol Sulfate 3 ML AMPUL.NEB INHALATION (11:06)
--- NOTE | 2017-07-10 12:46 | STRESSREP_ITS ---
Stress Test Report Date: 07/10/2017 Procedure: Pharmacologic stress nuclear imaging study Indications: Chest pain Consent: Per the patient Procedure: The patient underwent pharmacologic (Regadenoson) evaluation with a peak heart rate of 111 beats per minute (69 predicted maximal heart rate) and a peak blood pressure of 150/82 mmHg. The baseline ECG demonstrated sinus rhythm. The peak pharmacologic ECG demonstrated no obvious ECG changes. There were no cardiac dysrhythmias pretest, during pharmacologic infusion, or recovery. There was no complaint of chest discomfort during pharmacologic infusion or recovery. The examination was discontinued secondary to completion of protocol. Impression: 1. Pharmacologic (Regadenoson) evaluation 2. Peak pharmacologic ECG with no obvious ECG changes. 3. Were no cardiac dysrhythmias pretest, during pharmacologic infusion, or recovery 4. Nuclear images pending Myocardial perfusion imaging study: Technique: The patient was injected with 14.2 millicuries of technetium 99m Cardiolite and subsequently rest SPECT Cardiolite nuclear imaging was obtained in the horizontal long, vertical long, and short axis views. The patient underwent pharmacologic (Regadenoson) evaluation with a peak heart rate of 111 beats per minute (69 % percent predicted maximal heart rate) and a peak blood pressure of 150/82 mmHg. The patient was injected with 44.3 millicuries of technetium 99m Cardiolite and subsequently stress SPECT Cardiolite nuclear imaging was obtained in the horizontal long, vertical long, and short axis views. A gated Cardiolite study at peak stress was obtained. Interpretation: Rest and stress SPECT Cardiolite nuclear imaging status post realignment, normalization, and attenuation correction demonstrate to have uniform tracer uptake and myocardial perfusion within normal limits with the exception of a small area of subtle diminished tracer uptake near the apical areas compatible with physiological apical thinning. There is end systolic thickening and brightening. The gated Cardiolite study demonstrates myocardial thickening and inward wall motion. The reported LVEF is 71 %. Impression: 1. And stress SPECT Cardiolite nuclear imaging demonstrate relative uniform tracer uptake and myocardial perfusion appearing within normal limits with the exception of a small area of subtle diminished tracer uptake near the apical areas compatible with physiological apical thinning with no myocardial perfusion changes consider diagnostic for associated stress-induced myocardial ischemia or previous myocardial injury/infarction. 2. The gated Cardiolite study reports an LVEF of 71 %. This note was generated with [employer] software. It may contain incorrect words, spelling, and punctuation that were not noted in checking the note before signing.
[2017-07-10] MEDS: HYDROCHLOROTHIAZIDE 12.5 MG CAPSULE PO (12:48)
[2017-07-10] MEDS: Pantoprazole Sodium 40 MG Tablet PO (12:48)
== END 2017-07-10 10:55 | disposition home or self-care (01) ==
LOC: ED 16:46 → PCU 16:49
PROVIDERS: Admitting Provider Family Medicine; Emergency Provider Emergency Medicine; Family Provider Internal Medicine; PCP Internal Medicine; Visit Provider Internal Medicine
DX: R07.89 Other chest pain (principal); R06.02 Shortness of breath; I25.10 Atherosclerotic heart disease of native coronary artery without angina pectoris; I10 Essential (primary) hypertension; E78.5 Hyperlipidemia, unspecified; F41.9 Anxiety disorder, unspecified; F32.9 Major depressive disorder, single episode, unspecified; Z79.899 Other long term (current) drug therapy; Z82.49 Family history of ischemic heart disease and other diseases of the circulatory system; Z79.51 Long term (current) use of inhaled steroids; K21.9 Gastro-esophageal reflux disease without esophagitis; E66.9 Obesity, unspecified; Z68.33 Body mass index [BMI] 33.0-33.9, adult; Z71.3 Dietary counseling and surveillance; K50.90 Crohn's disease, unspecified, without complications
CPT/HCPCS: 36415; 71045; 78452; 80048; 80061; 83690; 83735; 84484; 85025; 85027; 85610; 85730; 93005; 93017; 94640; 96361; 96374; 99218; 99285; A9500; J7030; A4216; G0378; J2785

== ENCOUNTER 2017-08-07 16:00 | Outpatient (RCR) | payer MEDICARE, SELFPAY ==
--- NOTE | 2017-08-07 16:56 | HP.PTEVAL_ITS ---
Patient's Visit Information KENROY SIFUENTES is a 62 year old F referred to Physical Therapy by KARMEN RODRIGUEZ with a diagnosis of LLE PAIN. Date of Evaluation: 08/07/17 Physical Therapist: Marielle Mo Visit Plan Frequency: 2-3x /Week Duration: 4-6 Weeks Plan: AQUATIC THERAPY FOR PAIN RELEIF, POSTURE CORRECTION/STRENGTHENING, INSTRUCTION IN APPROPRIATE BODY MECHANICS AND ACTIVITY MODIFICATIONS. DLS STARTING WITH A NEUTRAL SPINE PROGRESSING ROM TOLERATED. LAI LE ROM, STRETCHING AND STRENGTHENING. HEP INSTRUCTION. - Subjective Subjective: THIS PATIENT PRESENTS TO PT WITH C/O PAIN IN THE BACK OF HER LEFT LEG. LOW BACK PAIN TOO. S/P 2 LOW BACK SURGERIES: NOV 2016 AND OCT 2012 MAKING PATIENT ABOUT 8 MONTHS POST OP FROM HER SECOND BACK SURGERY. SHE REPORTS THAT UP UNTIL 2 MONTHS AGO SHE WAS PAINFREE. SHE REPORTS A LONG HISTORY OF LLE PAIN. SHE STATES A FLUID CYST IN L45 REGION WAS THE REASON FOR HER PATRICK BACK SURGERY. SHE HAS HAD FUSION - RODS AND SCREWS. PATIENT REPORTS L LEG PAIN CAME BACK ABOUT 2 MONTHS AGO FOR NO APPARENT REASON. SHE ISN'T SURE IF SHE OVER DID IT WITH EX, WALKING OR YARD WORK. STATES HER PA ISN'T SURE IF THE PAIN IS COMING FROM HER BACK OR IF SHE PULLED A HAMSTRING. SHE RATES HER POSTERIOR LEFT THIGH PAIN 5/10 TODAY AND STATES HER PAIN RANGES FROM 2-10/10. SHE REPORTS SHE HAD A LOW BACK X-RAY 07/14/17 AND WAS TOLD EVERYTHING LOOKS GOOD. REPORTS SHE WAS TOLD SHE MAY NEED A HAMSTRING MRI. SHE REPORTS INCREASED LLE PAIN WHEN SHE SITS IN A CHAIR THAT HITS THE BACK OF HER LEG AND WITH WALKING. DECREASED PAIN WITH MASSAGE, HEAT, AND GENTLE STRETCHING. PMH: ASTHMA, COPD, HTN, UNREPAIRED L ROTATOR CUFF TEAR, HIGH CHOL, GERD, AND 2 TIA'S 2007, 2008. - Pain Lumbar Spine Pain Intensity (Out of 10): 7 Pain Intensity Range: Unrated Comment: COMES AND GOES. NO WORSE OVER-ALL RLE Pain Intensity (Out of 10): 0 Pain Intensity Range: Unrated Comment: ant. thigh/quad LLE Pain Intensity (Out of 10): 8 Pain Intensity Range: 2, 10 Comment: Hamstring - Objective THIS PATIENT AMBULATES INDEP'LY INTO PT WITHOUT ANY AD'S AND NO OBVIOUS LIMP. C /O DIFFICULTY INITIATING GAIT FIRST FEW STEPS. C/O LIMP/NEED FOR CANE WITH EXCESSIVE WALKING. INDEP SIT TO STAND WITHOUT UE ASSIST. LUMBAR MVMT LOSS: FLEX - MIN, EXT - ELISA, LAI SG - ELISA. SENSATION: INTACT AND SYMMETRICAL LAI LE' S. ROM: TIGHT LAI HS'S - PAIN IN LEFT POST THIGH WITH TESTING. MMT: LAI LE'S 5/5 WITH MMT'ING EXCEPT LEFT HIP 4/5, KNEE FLEX 4/5 WITH TESTING PROVOKING PAIN. SHE HAS TENDERNESS WITH PALPATION OF THE LEFT HAMSTRING REGION. HER CORE STRENGTH IS POOR. POSTURAL STRENGTH: POOR. INDEP SLS LAI LE'S BUT TESTING OF THE LLE PROVOKES LEFT HIP AND POSTERIOR THIGH PAIN. - Goals Goal 1:: DECREASE C/O LLE PAIN Goal Time Frame: 4-6 Weeks Goal 2:: IMPROVE STANDING AND WALKING FUNCTION Goal Time Frame: 4-6 Weeks Goal 3:: INSTRUCT IN PROPHYLAXIS Goal Time Frame: 4-6 Weeks - Rehabilitation Potential Rehabilitation Potential: Good - Anticipated Interventions Patient/Client Instruction: Educate patient on: Condition, Plan of Care, Risk Factors, Benefits of Fitness Program For the Purpose of:: To improve self management Therapeutic Exercise to Include: Strength training, Body mechanics, Postural training, Flexibilty training, In an aquatic setting, Dynamic Lumbar Stabilization For the Purpose of:: To decrease pain, To increase ROM, To improve muscle performance and motor function, To improve ability of physical actions for home/ community/work/leisure, To improve gait and locomotor functions Thank you for the opportunity to evaluate your patient. For Medicare and Medicare HMO plans, please review the plan of care and approve it. It will need to be FAXED BACK to us at [phone] for Medicare purposes. Please let me know if there are questions or concerns regarding this plan of care. Physician Signature: Date:
--- NOTE | 2017-08-07 16:59 | HP.PTDCSUM_ITS ---
HP - PT D/C Summary It has been my pleasure to treat KENROY SIFUENTES under orders from KARMEN RODRIGUEZ , for the diagnosis of LLE PAIN for a total of 7 visit(s). Discharge Date: Please see the following information for a summary of their discharge status. - Subjective Subjective: PATIENT REPORTS HER LLE SX'S ARE NO BETTER AND NO WORSE SINCE STARTING AQUATIC THERAPY. SHE STATES SHE THINKS SHE IS GOING TO END UP IN PAIN MGMT. PATIENT REPORTS INCREASED PAIN AFTER BUT NOT DURING 6LB BALL EX IN THE WATER LAST VISIT. STATES MASSAGE THERAPY HAS PRETTY MUCH WORKED THAT OUT NOW. - Pain Lumbar Spine Pain Intensity (Out of 10): 7 RLE Pain Intensity (Out of 10): 0 LLE Pain Intensity (Out of 10): 8 - Overall Improvement % Improvement: 0 - Objective Objective/Function: UPON EXAM TODAY, THERE ARE NO SIGNIFICANT CHANGES SINCE INITIAL EVALUATION. PATIENT AND THIS THERAPIST ARE IN AGREEMENT FOR DISCHARGE. - Goals Goal 1:: DECREASE C/O LLE PAIN Goal 2:: IMPROVE STANDING AND WALKING FUNCTION Goal 3:: INSTRUCT IN PROPHYLAXIS - Plan Plan: D/C DUE TO LACK OF PROGRESS AND CONTINUED SIGNIFICANT LLE PAIN. - D/C Information If there are questions or concerns regarding this patient's physical therapy, please feel free to call me at [phone]. Thank you for the referral of this patient. Sincerely, Marielle Lopez
== END 2017-08-07 19:00 | disposition home or self-care (01) ==
LOC: PT 16:00
PROVIDERS: Family Provider Internal Medicine; PCP Internal Medicine
DX: M79.605 Pain in left leg (principal)
CPT/HCPCS: 97110; 97113; 97162; 97164; 97530; G8978; G8979

== ENCOUNTER → 2018-07-16 10:31 | Outpatient (CLI) | payer MEDICARE, SELFPAY ==
[2018-04-19 13:09] VITALS: BMI 35.0
[2018-06-29 09:20] VITALS: BMI 35.0
--- NOTE | 2018-07-16 10:36 | BI_ITS ---
MAMMOGRAPHY - BILATERAL SCREENING REASON FOR EXAM: Female, 63 years old. Routine annual screening examination. PERTINENT HISTORY: Non-contributory. Remote right excisional breast biopsy. TECHNIQUE: Digital bilateral breast rob (3D mammographic acquisition) in the CC and MLO projections. 2-D mediolateral oblique (MLO) and craniocaudad (CC) views of both breasts were obtained. CAD: Full Field Digital Mammography with Computer Added Detection was performed. COMPARISON: Comparison is made with prior study dated July 06, 2017 and June 30, 2016. FINDINGS: Breast Composition: There are scattered areas of fibroglandular density. There are no dominant masses or suspicious calcifications. No other significant abnormalities are identified. There has been no significant change since the prior study. BI/SCREEN MAMM (CAD) W/ROB BILAT IMPRESSION: Stable bilateral screening mammogram. Yearly follow-up mammogram recommended. (A) ASSESSMENT CATEGORY: BIRADS Category 1: Negative. A letter regarding these results will be sent to the patient by the facility within 30 days. Approximately 10% of breast cancers are not detected by mammography. A normal mammogram should not delay biopsy of a clinically suspicious abnormality. [id number] Electronically Signed: Tashi Mathias, at 13:33 EDT , Service support ,
== END ==
PROVIDERS: Family Provider Internal Medicine; PCP Internal Medicine; Referring Provider Internal Medicine; Visit Provider Internal Medicine
DX: Z12.31 Encounter for screening mammogram for malignant neoplasm of breast (principal)
CPT/HCPCS: 77063; 77067

== ENCOUNTER 2018-09-23 18:40 | Emergency (ER) | payer MEDICARE, SELFPAY ==
[2018-06-29 09:20] VITALS: BMI 35.0
[2018-09-23 18:40] VITALS: BP 147/91; PULSE 107; RESP 20; TEMP 36.2; O2SAT 95; BMI 33.5
[2018-09-23 18:59] VITALS: O2SAT 96
--- NOTE | 2018-09-23 19:24 | ED.VISSUMM ---
- ER Visit Summary Date of Service: 09/23/18 Chief Complaint: Cough and wheezing History of Present Illness: The patient is a 63 F history of asthma hypertension and prior TIA. Negative cardiac catheterization in the past. Patient states that since Thursday she had a cough sometimes productive of yellowish sputum. No hemoptysis. No chest pain. Trouble breathing with excessive wheezing. She has inhaler nebulizer at home which she is been using. She does currently not have any steroids and she is on no antibiotic. Physical Examination: Older female vital signs stable pulse ox 95% on room air no signs of hypoxia. HEENT exam unremarkable. Moist week's membranes. Neck nontender no lymphadenopathy. Lungs prolonged expiratory phase bilaterally. Inspiratory and expiratory wheezing bilaterally. No rales or rhonchi. Heart regular rhythm rate about 105 no murmur. Abdomen soft and nontender. Moving all 4 extremities. Calves are nontender no edema bilaterally. Neurologically she is awake and alert with no focal motor deficits. Test Results: Chest x-ray 2 views shows acute abnormality. Read both by myself and radiologist. Emergency Department Course and Treatment: Patient with bronchitis acute exacerbation of asthma. Treated with DuoNeb and albuterol aerosols. Oral prednisone. Treatment Plan: On repeat exam patient is doing better at 2015 p.m. We discussed her chest x-ray and home treatment. Discharged home on prednisone 40 mg a day for 10 days. Continue her aerosols and inhalers at home. Return if worse. Disposition: Discharge Impression: Acute bronchitis with acute exacerbation of asthma Bronchospasm This note was generated with [employer] dictation software. It may contain incorrect words, spelling, and punctuation that were not noted in review of the chart prior to signing ED Disposition - Plan for ED Patient: Disposition: Home or Assisted Living Referrals: Elin Dickson DO [Primary Care Provider] -
[2018-09-23] MEDS: Ipratropium/Albuterol Sulfate 3 ML AMPUL.NEB INHALATION (19:36)
[2018-09-23 19:40] VITALS: PULSE 94; RESP 20
--- NOTE | 2018-09-23 19:40 | RAD_ITS ---
STUDY: X-RAY CHEST REASON FOR EXAM: Female, 63 years old. Shortness of breath TECHNIQUE: 2 views COMPARISON: Prior chest radiograph of July 09, 2017 FINDINGS: The lungs are clear and expanded. There is no demonstrated pleural abnormality. Normal size heart. Normal mediastinum and clari. Normal visualized pulmonary arteries. There is atherosclerotic calcification of the aortic arch with tortuosity. There are diffuse degenerative changes of the visualized thoracic spine. There is degenerative osteoarthritis of the bilateral shoulders. There is no demonstrated abnormality of the visualized soft tissue structures of the upper abdomen. RAD/Chest PA and Lateral IMPRESSION: No acute cardiopulmonary findings or changes. Negative for new consolidation, focal atelectasis, pleural effusion or cardiomegaly. Electronically Signed: Radha Dawn MD at 19:58 EDT , Service support ,
[2018-09-23] MEDS: predniSONE 20 MG Tablet 80 MG PO (19:52)
--- NOTE | 2018-09-23 20:16 | ED.DEP ---
ED Disposition - Plan for ED Patient: Disposition: Home or Assisted Living Instructions: BRONCHITIS with Wheezing (Adult) Prescriptions: Prednisone [Deltasone] 40 mg PO DAILY 10 Days tab Prescription Printed Azithromycin [Zithromax Z-Peter] 250 mg PO UD #1 box Prescription Printed Referrals: Elin Dickson DO [Primary Care Provider] - 1 Week if not improving Additional Instructions: Use your inhaler nebulizer at home Prednisone 40 mg a day may stop early if you are feeling better. Return if feeling worse.
[2018-09-23 20:27] VITALS: PULSE 96; RESP 20; O2SAT 95
== END 2018-09-23 20:28 | disposition home or self-care (01) ==
LOC: ED 19:40
PROVIDERS: Emergency Provider Emergency Medicine; Family Provider Internal Medicine; PCP Internal Medicine
DX: J20.9 Acute bronchitis, unspecified (principal); J45.901 Unspecified asthma with (acute) exacerbation; I10 Essential (primary) hypertension; Z79.899 Other long term (current) drug therapy; Z86.73 Personal history of transient ischemic attack (TIA), and cerebral infarction without residual deficits
CPT/HCPCS: 71046; 94640; 99283

== ENCOUNTER → 2018-12-30 11:31 | Outpatient (CLI) | payer MEDICARE, SELFPAY ==
[2018-12-30 07:39] VITALS: BMI 36.6
[2018-12-30 13:10] LABS: Absolute Neutrophil Count 4.6 X10^3/uL (2.0-7.7); Basophil# 0.07 X10^3/uL; Basophil% 0.9 % (0-1); Eosinophils% 3.7 % (0-5); Hematocrit 44.8 % (37-47); Hemoglobin 14.2 g/dL (12.0-15.0); Lymphocyte % 31.9 % (19-41); Mean Corp Hgb Conc 31.7 g/dL (32-36); Mean Corpuscular Hgb 27.9 pg (27.0-32.0); Monocyte# 0.53 X10^3/uL; Monocyte% 6.5 % (0-10); NRBC Flagged by Analyzer 0 % (0-5); Neutrophil # 4.62 X10^3/uL (2.7-7.7); Neutrophil % 56.5 % (47-70); Platelet Count 378 K/mm3 (150-450); RBC Distribution Width CV 13.9 % (11.6-14.6); RBC Distribution Width SD 44.7 fl (35.1-43.9); Red Blood Count 5.09 M/mm3 (4.2-5.4); White Blood Count 8.2 K/mm3 (4.4-11.0)
[2019-01-02 04:09] LABS: Alternaria tenuis <0.10 kU/L (Class 0); Ash, White <0.10 kU/L (Class 0); Aspergillus fumigatus <0.10 kU/L (Class 0); Bermuda Grass <0.10 kU/L (Class 0); Birch <0.10 kU/L (Class 0); Black Walnut <0.10 kU/L (Class 0); Cat Hair / Dander,Stand <0.10 kU/L (Class 0); Cedar, Mountain <0.10 kU/L (Class 0); Cladosporium herbarum <0.10 kU/L (Class 0); Cockroach, American <0.10 kU/L (Class 0); Cottonwood <0.10 kU/L (Class 0); D farinae Mite <0.10 kU/L (Class 0); D pteronyssinus <0.10 kU/L (Class 0); Dog Epithelia <0.10 kU/L (Class 0); Elm, American White <0.10 kU/L (Class 0); Immunoglobulin E 42 IU/mL (6-495); Maple/Box Elder <0.10 kU/L (Class 0); Mulberry, White <0.10 kU/L (Class 0); Oak, White <0.10 kU/L (Class 0); Pecan <0.10 kU/L (Class 0); Penicillium Notatum <0.10 kU/L (Class 0); Pigweed, Rough <0.10 kU/L (Class 0); Ragweed, Short/Common <0.10 kU/L (Class 0); Russian Thistle <0.10 kU/L (Class 0); Sheep Sorrel <0.10 kU/L (Class 0); Sycamore, American <0.10 kU/L (Class 0); Timothy Grass <0.10 kU/L (Class 0)
[2019-01-02 20:10] LABS: Aspirgillus flavus Negative (Neg:<1:1); Aspirgillus fumigatus Negative (Neg:<1:1); Aspirgillus niger Negative (Neg:<1:1)
[2019-01-03 13:42] LABS: Immunoglobulin E 39 IU/mL (6-495)
[2019-01-03 13:45] LABS: Mouse Urine <0.10 kU/L (Class 0)
== END ==
PROVIDERS: Family Provider Internal Medicine; PCP Internal Medicine; Referring Provider Internal Medicine Critical Care Medicine; Visit Provider Internal Medicine Critical Care Medicine
DX: J45.40 Moderate persistent asthma, uncomplicated (principal)
CPT/HCPCS: 36415; 82785; 85025; 86003; 86606

== ENCOUNTER → 2019-01-20 09:33 | Outpatient (CLI) | payer MEDICARE, SELFPAY ==
[2019-01-17 11:08] VITALS: BMI 36.6
[2019-01-23 16:07] LABS: Alternaria tenuis <0.10 kU/L (Class 0); Ash, White <0.10 kU/L (Class 0); Aspergillus fumigatus 0.13 kU/L (Class 0/I); Bermuda Grass <0.10 kU/L (Class 0); Birch <0.10 kU/L (Class 0); Black Walnut <0.10 kU/L (Class 0); Cedar, Mountain <0.10 kU/L (Class 0); Cladosporium herbarum <0.10 kU/L (Class 0); Cockroach, American 0.11 kU/L (Class 0/I); Cottonwood <0.10 kU/L (Class 0); D farinae Mite <0.10 kU/L (Class 0); D pteronyssinus <0.10 kU/L (Class 0); Elm, American White <0.10 kU/L (Class 0); Immunoglobulin E 29 IU/mL (6-495); Maple/Box Elder <0.10 kU/L (Class 0); Mulberry, White <0.10 kU/L (Class 0); Oak, White <0.10 kU/L (Class 0); Pecan <0.10 kU/L (Class 0); Penicillium Notatum <0.10 kU/L (Class 0); Pigweed, Rough <0.10 kU/L (Class 0); Ragweed, Short/Common <0.10 kU/L (Class 0); Russian Thistle <0.10 kU/L (Class 0); Sheep Sorrel <0.10 kU/L (Class 0); Sycamore, American <0.10 kU/L (Class 0); Timothy Grass <0.10 kU/L (Class 0)
[2019-01-24 09:36] LABS: Mouse Urine <0.10 kU/L (Class 0)
== END ==
PROVIDERS: Family Provider Internal Medicine; PCP Internal Medicine; Referring Provider Otolaryngology; Visit Provider Otolaryngology
DX: T78.40XA Allergy, unspecified, initial encounter (principal)
CPT/HCPCS: 36415; 82785; 86003

== ENCOUNTER → 2019-04-05 15:36 | Outpatient (CLI) | payer MEDICARE, SELFPAY ==
[2019-01-17 11:08] VITALS: BMI 36.6
== END ==
PROVIDERS: PCP Internal Medicine; Referring Provider Nurse Practitioner Acute Care; Visit Provider Nurse Practitioner Acute Care
DX: J45.909 Unspecified asthma, uncomplicated (principal); R09.81 Nasal congestion
CPT/HCPCS: 87070; 87205; 87633

== ENCOUNTER → 2019-06-03 09:49 | Outpatient (CLI) | payer MEDICARE, SELFPAY ==
[2019-04-21 07:33] VITALS: BMI 36.8
--- NOTE | 2019-06-03 09:57 | RAD_ITS ---
STUDY: AIR-CONTRAST ESOPHAGRAM STUDY REASON FOR EXAM: Female, 64 years old. Vomiting FLUOROSCOPY TIME (if supplied): (0:55) minutes/seconds, 16 images. TECHNIQUE: Barium pill swallow with sips of water is performed at the beginning of the study without difficulty. Multiple barium swallows were performed under fluoroscopic monitoring. Multiple views of the esophagus, the upper stomach were performed. COMPARISON: None. FINDINGS: Barium pill swallow with sips of water is performed at the beginning of the study without difficulty. The esophagus appears normal in size and shape it shows unremarkable mucosal pattern. There is no evidence of hiatal hernia or abnormal vascular compression. RAD/Esophagus Single Contrast IMPRESSION: Unremarkable study. Electronically Signed: Justin Ng, at 14:24 EDT Tel , Service support ,
== END ==
PROVIDERS: PCP Internal Medicine; Referring Provider Otolaryngology; Visit Provider Otolaryngology
DX: R13.10 Dysphagia, unspecified (principal)
CPT/HCPCS: 74220

== ENCOUNTER 2019-06-25 11:08 | Emergency (ER) | payer MEDICARE, SELFPAY ==
[2019-04-21 07:33] VITALS: BMI 36.8
[2019-06-25 11:09] VITALS: BP 144/95; PULSE 107; RESP 16; TEMP 36.3; O2SAT 97; BMI 37.8
--- NOTE | 2019-06-25 11:20 | RAD_ITS ---
STUDY: X-RAY CHEST REASON FOR EXAM: Female, 64 years old. COUGH; HX OF ASTHMA TECHNIQUE: Frontal view COMPARISON: September 23, 2018 FINDINGS: The lungs are clear and expanded. There is no demonstrated pleural abnormality. Normal size heart. Normal mediastinum and clair. Normal visualized pulmonary arteries. Mildly calcified visualized aortic arch and descending thoracic aorta. Normal visualized thoracic spine. Normal visualized ribs, clavicles, and shoulders. There is no demonstrated abnormality of the visualized soft tissue structures of the upper abdomen. RAD/Chest 1 View (Portable) IMPRESSION: Normal x-ray examination of the chest. Electronically Signed: Crow Kuhn DO at 12:16 EDT Tel [phone], Service support ,
--- NOTE | 2019-06-25 11:20 | EKG12_ITS ---
Test Reason : SOB Blood Pressure : / mmHG Vent. Rate : 097 BPM Atrial Rate : 097 BPM P-R Int : 134 ms QRS Dur : 086 ms QT Int : 352 ms P-R-T Axes : 002 026 072 degrees QTc Int : 447 ms Normal sinus rhythm Normal ECG Confirmed by LEVAR SANTANA, MACY ([id number]), editorial writer DOUG CHAPPELL ([id number]) on 06/27/2019 3:17:32 PM Referred By: HO Confirmed By:MACY CRISTOBAL MD
--- NOTE | 2019-06-25 11:26 | ED.VIS.GEN ---
History of Present Illness Chief Complaint: Shortness of Breath Narrative: 66-year-old female with a history of asthma presents with shortness of breath for several months. She has been taking regular albuterol treatments. She improved strangely but then continues to wheeze. Occasional cough but nothing new. No fever, chills, or body aches. This is somewhat of a chronic condition for her. She is not on home oxygen. She denies recent travel or immobilization. She denies lower extremity pain or swelling. The onset of her symptoms has been gradual. The severity is mild. She states that she has not left her house nor does she have any sick contacts. No exposure to coronavirus. No lower extremity pain or swelling. No chest pain. No diaphoresis or exertional symptoms. Past Medical History - Allergies and Home Meds Allergies/Adverse Reactions: Allergies buprenorphine [From Butrans] Allergy (Mild, Verified 06/25/19 11:12) Hives terbinafine Allergy (Mild, Verified 06/25/19 11:12) Rash codeine Allergy (Verified 06/25/19 11:12) Unknown nortriptyline Adverse Reaction (Mild, Verified 06/25/19 11:12) Upset Stomach omeprazole Adverse Reaction (Mild, Verified 06/25/19 11:12) Diarrhea Penicillins Adverse Reaction (Mild, Verified 06/25/19 11:12) yeast infection naproxen [From Naprosyn] Adverse Reaction (Verified 06/25/19 11:12) gi upset nortriptyline HCl [From Pamelor] Adverse Reaction (Verified 06/25/19 11:12) Upset Stomach Primary Care Physician: Elin Dickson DO [Primary Care Provider] - Prior records reviewed: Yes Past Medical History: - - Severe asthma, Surgical History: tonsillectomy, - - Partial hysterectomy, tubal ligation, right breast biopsy, lumbar back surgery. Smoking Status: Never smoker - Family History Maternal Family History: Family History (Last Reviewed 04/21/19 @ 10:10 by Chanell Billy) Mother Anxiety Hypertension kidney/renal disease High cholesterol Brother Heart disease Cancer Father Heart disease Family History: Reports: Pulmonary Disease Paternal Family History: Family History (Last Reviewed 04/21/19 @ 10:10 by Chanell Billy) Mother Anxiety Hypertension kidney/renal disease High cholesterol Brother Heart disease Cancer Father Heart disease Family History: Reports: Heart Disease Review of Systems General: Denies: Chills, Fever, Sweats Eyes: Denies: Visual changes - bilaterally, Diplopia ENT: Denies: Rhinorrhea, Sore throat Cardiovascular: Denies: Chest pain, Palpitations Respiratory: Reports: Dyspnea. Denies: Cough, Dyspnea on exertion Gastrointestinal: Denies: Abdominal pain, Nausea, Vomiting, Diarrhea, Melena, Hematochezia Genitourinary: Denies: Dysuria, Hematuria, Frequency Musculoskeletal: Denies: Back pain, Extremity Pain Skin: Denies: Rash, Wounds Neurological: Denies: Headache, Weakness, Numbness Physical Exam Vital Signs/Narrative: Vital Signs Temp Pulse Resp BP Pulse Ox 06/25/19 11:09 97.4 F L 107 H 16 144/95 H 97 General: Well nourished, Well developed, No Acute Distress Head: Normocephalic, Atraumatic Eyes: Perrl, EOMI ENT: Moist mucous membranes, No rhinorrhea Neck: Supple, Nontender Cardiovascular: Regular rate, Regular rhythm, No murmurs Respiratory: No distress, Chest nontender, Wheezing Abdomen: Soft, Nontender, Nondistended, Normal bowel sounds Back: Nontender, Normal Inspection Extremities: Nontender, No edema Skin: Normal color, No rash Neurological: Alert, Oriented x3, Cranial nerves II-XII grossly intact, Normal Strength, Normal Sensation Psychological: Normal affect, Normal Mood Diagnostic/Tx/Re-eval - Medical Decision Making Labs are within normal limits.CXR is clear. She was still tachycardic so I ordered a CTA which was negative for PE. She looks well and is not in distress on re-eval. She wants to go home. She has no leukopenia or lymphopenia. No bilateral infiltrates to suggest coronavirus and no recent sick contacts. She feels strongly that this is her asthma and would like to be placed back on steroids. She has plenty of breathing treatments at home. She will return here if worse. ED Disposition - Plan for ED Patient: Disposition: Home or Assisted Living Diagnosis: Asthma exacerbation Instructions: Asthma Prescriptions: Prednisone [Deltasone] 40 mg PO DAILY #10 tablet Referrals: Elin Dickson DO [Primary Care Provider] -
[2019-06-25 11:43] LABS: Absolute Lymphocyte Count 2.51 X10^3/uL (0.83-4.51); Absolute Neutrophil Count 5.5 X10^3/uL (2.0-7.7); Basophil# 0.04 X10^3/uL; Basophil% 0.4 % (0-1); Eosinophils% 4.4 % (0-5); Hematocrit 44.4 % (37-47); Hemoglobin 14.1 g/dL (12.0-15.0); Lymphocyte # 2.51 X10^3/ul (4.0); Lymphocyte % 27.7 % (19-41); Mean Corp Hgb Conc 31.8 g/dL (32-36); Mean Corpuscular Hgb 27.8 pg (27.0-32.0); Mean Corpuscular Volume 87.4 fL (81-99); Mean Platelet Vol. 9.8 fl (6.2-12.0); Monocyte# 0.55 X10^3/uL; Monocyte% 6.1 % (0-10); NRBC Flagged by Analyzer 0 % (0-5); Neutrophil # 5.53 X10^3/uL (2.7-7.7); Platelet Count 328 K/mm3 (150-450); RBC Distribution Width CV 13.8 % (11.6-14.6); RBC Distribution Width SD 44.5 fl (35.1-43.9); Red Blood Count 5.08 M/mm3 (4.2-5.4); White Blood Count 9.1 K/mm3 (4.4-11.0)
[2019-06-25 11:58] LABS: Anion Gap 7 (5-15); BUN 10 mg/dL (7-18); BUN/Creat Ratio 8.6 RATIO (10-20); Calcium,Total 9.5 mg/dL (8.5-10.1); Chloride 104 mmol/L (98-107); Creatinine, Serum 1.16 mg/dL (0.55-1.02); EST Glomerular Filtration Rate 50 mL/min (>60); Est Glom Filt Rate - Afr Amer 61 mL/min (>60); Estimated Creatinine Clearance 43.42 ml/min; Glucose 225 mg/dL (74-106); Sodium Level 137 mmol/L (136-145)
[2019-06-25 12:11] VITALS: BP 116/62; PULSE 98; RESP 20; TEMP 36.4; O2SAT 96
--- NOTE | 2019-06-25 12:57 | CT_ITS ---
STUDY: CTA CHEST REASON FOR EXAM: Female, 64 years old. CHEST TIGHTNESS. SOB. COPD AND ASTHMA RADIATION DOSAGE (If Supplied By Facility): CTDIvol = ( 11.47 ) mGy, DLP = ( 519.96 ) mGycm TECHNIQUE: The examination was performed with the intravenous administration of 100ML ISOVUE 370. Post-processing of the angiographic images was performed, with multiplanar reformation and 3D reconstruction. Individualized dose optimization techniques were used for this CT. COMPARISON: None. FINDINGS: Normal enhancement of the main pulmonary artery and right and left pulmonary arteries. Normal enhancement of the bilateral peripheral pulmonary arteries. There is no demonstrated pulmonary embolism. Normal thoracic aorta and visualized great vessels. There is no demonstrated aortic dissection. Normal heart and pericardium. Normal mediastinum. Normal hilar regions. Normal visualized trachea and bronchi. The lungs are well expanded. Mild linear scarring/atelectasis bilaterally. Normal pleura. Normal chest wall structures. Mild degenerative vertebral changes. Normal visualized upper abdomen. CT/CTA Chest W/WO Contrast IMPRESSION: No demonstrated pulmonary embolism or arterial dissection. Electronically Signed: Crow Kuhn DO at 14:59 EDT Tel [phone], Service support ,
[2019-06-25 13:00] VITALS: BP 149/74; PULSE 96; RESP 20; TEMP 36.6; O2SAT 95
[2019-06-25 14:00] VITALS: BP 113/75; PULSE 92; RESP 18; TEMP 36.8; O2SAT 97
[2019-06-25 15:00] VITALS: BP 137/99; PULSE 99; RESP 16; TEMP 36.7; O2SAT 92
== END 2019-06-25 15:25 | disposition home or self-care (01) ==
PROVIDERS: Emergency Provider Emergency Medicine; PCP Internal Medicine
DX: J45.901 Unspecified asthma with (acute) exacerbation (principal)
CPT/HCPCS: 71045; 71275; 80048; 85025; 93005; 96360; 99285; Q9967; A4216

== ENCOUNTER → 2019-08-12 08:48 | Outpatient (CLI) | payer MEDICARE, SELFPAY ==
[2019-07-19 12:33] VITALS: BMI 38.2
--- NOTE | 2019-08-12 08:52 | BI_ITS ---
MAMMOGRAPHY - BILATERAL SCREENING 3-D TOMOSYNTHESIS REASON FOR EXAM: Female, 64 years old. Routine screening PERTINENT HISTORY: NO FM HX , RT EXC BX 1997. TECHNIQUE: 2-D mammograms and 3-D Tomosynthesis of the breast (s) were performed. CAD was performed. COMPARISON: 07/16/2018 FINDINGS: The breast composition is almost entirely fat. Scattered benign calcifications are seen. No dense spiculated masses or suspicious microcalcifications are identified. No architectural distortion is identified. There is no skin thickening or retraction. There has been no significant change since the prior study. BI/SCREEN MAMM (CAD) W/ROB BILAT IMPRESSION: No mammographic signs of malignancy. Routine yearly mammograms recommended. ASSESSMENT CATEGORY: BIRADS Category 1: Negative. A letter regarding these results will be sent to the patient by the facility within 30 days. FOLLOW UP RECOMMENDATION: Yearly follow up mammogram recommended. (A) Approximately 10% of breast cancers are not detected by mammography. A normal mammogram should not delay biopsy of a clinically suspicious abnormality. Electronically Signed: Armin Post MD at 10:56 EDT , Service support ,
--- NOTE | 2019-08-12 08:52 | US_ITS ---
STUDY: ABDOMINAL ULTRASOUND - RIGHT UPPER QUADRANT REASON FOR VISIT: Female, 64 years old known pancreatic mass, follow-up TECHNIQUE: Ultrasound evaluation of the right upper quadrant was performed with real-time and static toth-scale imaging. TECHNICAL QUALITY: Adequate. COMPARISON: 03/18/2016 FINDINGS: Liver: The liver measures 20.5 cm. There is increased echogenicity consistent with fatty infiltration. The bile ducts are within normal limits. There is hepatic color flow. The direction of portal flow is hepatopetal. There is no demonstrated mass lesion. Gallbladder: Normal distended gallbladder. The gallbladder wall measures 1.5 mm. There is a negative sonographic Kearns''s sign. There is no pericholecystic fluid. There are no gallstones. Common Bile Duct (C.B.D.): The common bile duct measures 5.0 mm. Pancreas: Normal size of the head, body and tail of the pancreas. There is normal echogenicity of the pancreas. There is a stable 0.6 x 0.5 x 0.4 cm hypoechoic mass . Since it has not changed in more than 3 years, no specific follow-up is needed. Right Kidney: Normal size of the right kidney. The right kidney measures 11.3 x 4.7 x 4.5 cm. Normal renal cortex. The right cortex measures 1.4 cm. There is no demonstrated renal mass or cyst. There is no right hydronephrosis. US/Abdomen Limited IMPRESSION: Hepatomegaly with fatty infiltration of the liver, no discrete lesion Stable 6 mm hypoechoic nodule in the head of the pancreas, no specific follow-up is needed since it has remained unchanged for more than 3 years Electronically Signed: Armin Post MD at 9:51 EDT , Service support ,
== END ==
PROVIDERS: PCP Internal Medicine; Referring Provider Internal Medicine; Visit Provider Internal Medicine
DX: Z12.31 Encounter for screening mammogram for malignant neoplasm of breast (principal); K86.89 Other specified diseases of pancreas
CPT/HCPCS: 76705; 77063; 77067

== ENCOUNTER → 2020-01-04 12:53 | Outpatient (CLI) | payer MEDICARE, SELFPAY ==
[2019-11-11 12:50] VITALS: BMI 38.2
--- NOTE | 2020-01-06 12:57 | PFT ---
INTRODUCTION: The patient is a 64-year-old female that presents for pulmonary function studies secondary to a diagnosis of asthma. Respiratory therapy reports good patient effort. Bronchodilators were used during testing. INTERPRETATION: Forced expiration spirometry demonstrates no evidence of a large airways obstructive ventilatory defect. There was no significant response to aerosolized bronchodilators, based upon strict ATS criteria. Spirograms are of good quality and plateau gradually indicating slow emptying of the lungs. Body plethysmography was performed and reveals lung volumes to be within normal limits. Diffusing capacity by single breath CO is also within normal limits. When compared to pulmonary function studies from March 2017, there has been a 51% improvement in DLCO. IMPRESSION: Grossly normal pulmonary function studies with improvement in DLCO since 2018, as noted above.
== END ==
PROVIDERS: PCP Internal Medicine; Referring Provider Nurse Practitioner Acute Care; Visit Provider Nurse Practitioner Acute Care
DX: J45.909 Unspecified asthma, uncomplicated (principal)
CPT/HCPCS: 94060; 94726; 94729

== ENCOUNTER → 2020-02-22 17:22 | Outpatient (CLI) | payer MEDICARE, SELFPAY | PROVIDERS: PCP Internal Medicine; Referring Provider Nurse Practitioner Acute Care; Visit Provider Nurse Practitioner Acute Care | DX: R11.0 Nausea (principal) | CPT/HCPCS: 87635; C9803; U0005; U0003 ==

== ENCOUNTER → 2020-03-01 10:20 | Outpatient (CLI) | payer MEDICARE, SELFPAY | PROVIDERS: PCP Internal Medicine; Referring Provider Nurse Practitioner Acute Care; Visit Provider Nurse Practitioner Acute Care | DX: R53.81 Other malaise (principal) | CPT/HCPCS: 87635; C9803; U0005; U0003 ==

== ENCOUNTER → 2020-09-11 09:11 | Outpatient (CLI) | payer MEDICARE, SELFPAY ==
[2020-08-17 10:02] VITALS: BMI 35.3
--- NOTE | 2020-09-11 09:15 | BI_ITS ---
MAMMOGRAPHY - BILATERAL SCREENING REASON FOR EXAM: Female, 65 years old. Routine annual screening examination. PERTINENT HISTORY: Non-contributory. Remote right excisional breast biopsy. TECHNIQUE: Digital bilateral breast rob (3D mammographic acquisition) in the CC and MLO projections. 2-D mediolateral oblique (MLO) and craniocaudad (CC) views of both breasts were obtained. CAD: Full Field Digital Mammography with Computer Added Detection was performed. COMPARISON: Comparison is made with prior study dated 08/12/2019 and 07/16/2018. FINDINGS: Breast Composition: There are scattered areas of fibroglandular density. There are no dominant masses or suspicious calcifications. Stable small benign-appearing bilateral axillary lymph nodes. No other significant abnormalities are identified. There has been no significant change since the prior study. BI/SCRN MAMM (CAD)W/ROB BILAT IMPRESSION: Stable bilateral screening mammogram. Yearly follow-up mammogram recommended. (A) ASSESSMENT CATEGORY: BIRADS Category 2: Benign. A letter regarding these results will be sent to the patient by the facility within 30 days. Approximately 10% of breast cancers are not detected by mammography. A normal mammogram should not delay biopsy of a clinically suspicious abnormality. [id number] Electronically Signed: Tashi Mathias MD at 10:25 EDT , Service support ,
--- NOTE | 2020-09-11 09:15 | US_ITS ---
STUDY: ABDOMINAL ULTRASOUND - RIGHT UPPER QUADRANT REASON FOR VISIT: Female, 65 years old . History of pancreatic cyst. TECHNIQUE: Ultrasound evaluation of the right upper quadrant was performed with real-time and static toth-scale imaging. TECHNICAL QUALITY: Adequate. COMPARISON: Comparison is made with prior study dated 08/12/2019. FINDINGS: Liver: The liver is enlarged and measures 19.4 cm. There is increased echogenicity consistent with fatty infiltration. The bile ducts are within normal limits. There is hepatic color flow. The direction of portal flow is hepatopetal. There is no demonstrated mass lesion. Gallbladder: Normal distended gallbladder. The gallbladder wall measures 1.9 mm. There is a negative sonographic Kearns''s sign. There is no pericholecystic fluid. There are no gallstones. Common Bile Duct (C.B.D.): The common bile duct measures 3.5 mm. Pancreas: Normal size of the head, body and tail of the pancreas. There is normal echogenicity of the pancreas. Once again, there is evidence of a 6.3 mm x 5.6 mm x 5.2 millimeter cystic nodule in the body of the pancreas. Right Kidney: Normal size of the right kidney. The right kidney measures 11.2 cm x 5.9 cm x 5.2 cm. Normal renal cortex. The right cortex measures 1.8 cm. There is no demonstrated renal mass or cyst. There is no right hydronephrosis. US/Abdomen Limited IMPRESSION: Stable examination. Hepatomegaly and fatty infiltration of the liver. 6.3 mm x 5.6 mm x 5.2 mm cyst in the body of the pancreas. Electronically Signed: Tashi Mathias MD at 9:54 EDT , Service support ,
--- NOTE | 2020-09-11 10:10 | BD_ITS ---
STUDY: DUAL ENERGY X-RAY ABSORPTIOMETRY / DXA REASON FOR EXAM: Female, 65 years old. [id number]. The patient is postmenopausal. TECHNIQUE: Bone Mineral Density (BMD) measurements of lumbar spine and bilateral hips were obtained. COMPARISON: None. FINDINGS: Lumbar Spine (L1-L4): g/cm2 (0.924) / T-score (-0.9) / Z-score (0.8) Findings are suggestive of normal bone density with a low fracture risk. Left Femur Total: g/cm2 (0.883) / T-score (-0.5) / Z-score (0.7) Left Femoral Neck: g/cm2 (0.632) / T-score (-2.0) / Z-score (-0.5) Right Femur Total: g/cm2 (0.955) / T-score (0.1) / Z-score (1.2) Right Femoral Neck: g/cm2 (0.723) / T-score (-1.1) / Z-score (0.3) BD/Dexa Bone Density Study IMPRESSION: The patient is considered osteopenic as outlined below according to World [employer] Organization (WHO) criteria with a moderate fracture risk. Reference Information: The T-score is the number of standard deviations above or below the standard which is normal for young adults at their peak bone mineral density. The World Health Organization (WHO) interprets the T-scores as follows: Above -1 Normal bone density Between -1 and -2.5 Osteopenia Equal to / or below -2.5 Osteoporosis As a practical clinical guideline, osteopenia may be graded as follows: Mild -1 through -1.5 Moderate -1.6 through -2.0 Severe -2.1 through -2.4 The Z-score is the number of standard deviations above or below age-matched controls. A Z-score of less than -1.5 would be considered abnormal. References: 1. NIH Osteoporosis and Related Bone Diseases www osteo.org 2. International Society for Clinical Densitometry www iscd.org 3. National Osteoporosis Foundation www nof.org Electronically Signed: Tashi Mathias MD at 11:55 EDT , Service support ,
== END ==
PROVIDERS: PCP Internal Medicine; Referring Provider Internal Medicine; Visit Provider Internal Medicine
DX: Z78.0 Asymptomatic menopausal state (principal); Z12.31 Encounter for screening mammogram for malignant neoplasm of breast; K86.89 Other specified diseases of pancreas
CPT/HCPCS: 76705; 77063; 77067; 77080

== ENCOUNTER → 2020-10-04 14:14 | Outpatient (CLI) | payer MEDICARE, SELFPAY | PROVIDERS: PCP Internal Medicine; Visit Provider Nurse Practitioner Acute Care | DX: R05 Cough (principal) | CPT/HCPCS: 87426; C9803 ==

== ENCOUNTER 2020-10-05 14:27 | Outpatient (CLI) | payer MEDICARE, SELFPAY ==
[2020-10-05] MEDS: 0.9% Saline Lock 10 ML Syringe IV (14:55)
[2020-10-05 14:56] VITALS: BP 123/69; PULSE 91; RESP 18; TEMP 36.6; O2SAT 97; BMI 33.7
[2020-10-05 15:31] VITALS: BP 115/63; PULSE 85; RESP 18; TEMP 36.6; O2SAT 98
[2020-10-05 16:37] VITALS: BP 115/67; PULSE 78; RESP 18; TEMP 36.6; O2SAT 97
== END 2020-10-05 16:39 | disposition home or self-care (01) ==
LOC: ICUOUT 14:27 → ICU 14:28
PROVIDERS: PCP Internal Medicine; Referring Provider Nurse Practitioner Acute Care; Visit Provider Nurse Practitioner Acute Care
DX: Z23 Encounter for immunization (principal); U07.1 COVID-19
CPT/HCPCS: J7050; M0243; A4216; Q0244

== ENCOUNTER → 2020-12-07 06:58 | Outpatient (CLI) | payer MEDICARE, SELFPAY ==
--- NOTE | 2020-12-07 07:00 | ECHOD_ITS ---
Reason For Study: Arrhythmia Procedure This was a 2D Doppler, Color Flow transthoracic echocardiogram. Exam performed in department. Left Ventricle Normal LV size. Left ventricular systolic function is normal. The estimated ejection fraction is 60 %. Stage 1 diastolic dysfunction. No regional wall motion abnormalities noted. Right Ventricle Normal RV size. Normal systolic function. Atria Normal left atrium. Normal right atrium. Mitral Valve Normal mitral valve. Tricuspid Valve Normal tricuspid valve. Aortic Valve Trisinus/trileaflet aortic valve. Pulmonic Valve Normal pulmonic valve. Great Vessels Normal aortic root. The pulmonary artery is normal size. Normal inferior vena cava. Pericardium/Pleural No pericardial effusion. MMode/2D Measurements & Calculations LVIDd: 3.6 cm IVSd: 1.0 cm Ao root diam: 2.8 cm LVIDs: 2.5 cm LVPWd: 1.1 cm RVDd: 2.5 cm FS: 28.7 % LAV(MOD-bp): 30.2 ml LVAd ap4: 21.0 cm2 LVAd ap2: 19.2 cm2 LAV(MOD-bp) Indexed: 15.6 ml/m2 LVLd ap4: 7.8 cm LVLd ap2: 7.6 cm LAV(MOD-sp2): 35.8 ml EDV(MOD-sp4): 46.8 ml EDV(MOD-sp2): 40.5 ml LAV(MOD-sp4): 24.3 ml EDV(sp4-el): 47.8 ml EDV(sp2-el): 41.2 ml LVAs ap4: 12.4 cm2 LVAs ap2: 11.0 cm2 LVLs ap4: 6.9 cm LVLs ap2: 6.7 cm ESV(MOD-sp4): 19.7 ml ESV(MOD-sp2): 15.8 ml ESV(sp4-el): 18.9 ml ESV(sp2-el): 15.3 ml EF(MOD-sp4): 57.8 % EF(MOD-sp2): 61.0 % EF(sp4-el): 60.4 % SV(MOD-sp4): 27.1 ml SV(MOD-sp2): 24.7 ml SV(sp4-el): 28.9 ml LA dimension(2D): 3.2 cm LA A4 area: 11.2 cm2 RA A4 area: 8.9 cm2 Doppler Measurements & Calculations MV E max justino: 71.8 cm/sec Lat Peak E' Justino: 7.4 cm/sec Med Peak E' Justino: 5.8 cm/sec MV A max justino: 86.1 cm/sec E/E' lat: 9.7 E/E' med: 12.5 MV E/A: 0.83 Ao V2 max: 126.6 cm/sec LV V1 max: 89.8 cm/sec PA V2 max: 82.9 cm/sec Ao max P.4 mmHg LV V1 max P.2 mmHg ECHO/Echo Complete Interpretation Summary Normal LV size. Left ventricular systolic function is normal. The estimated ejection fraction is 60 %. Stage 1 diastolic dysfunction. Ordering Physician: John Hester Referring Physician: Elin Dickson M.D. Performed By: Dolores Wood RDCS
--- NOTE | 2020-12-07 13:37 | STRESSREP ---
Stress Test Report Pharmacologic myocardial perfusion stress test. 65-year-old lady with a history of cardiac dysrhythmia. Stress protocol: Resting EKG demonstrates normal sinus rhythm with a rate of 83 bpm normal intervals are noted resting blood pressure is 126/78 mmHg. 0.4 mg of regadenoson was infused. Protocol followed by rapid rapid venous saline flush injection continuous EKG monitoring was performed. Maximum heart rate attained was 116 bpm which was 73% of maximum predicted heart rate the maximum workload was 1 metabolic equivalents. At rest there were no ST or T wave changes noted to suggest abnormal flow reserve and at peak infusion nonspecific ST changes were noted with did not meet the criteria for ischemia the peak blood pressure was 142/80 mmHg. Myocardial perfusion protocol. 11.9 mCi of technetium 99m sestamibi was injected at rest. 0.4 mg of regadenoson was infused. Protocol. At peak infusion 34.3 mCi of technetium 99m sestamibi was injected stress images were obtained stress and rest images were reconstructed and compared in the short axis vertical long horizontal long axis. Gated images were also obtained Perfusion SPECT analysis: Review of the stress images demonstrate normal uptake of tracer noted in all areas of the myocardium. The resting images demonstrate normal uptake of tracer noted in all areas of the myocardium. No areas of reversibility are noted suggest ischemia no previous infarct is noted. Conclusion: Normal pharmacologic myocardial perfusion stress test. Preserved ejection fraction.
== END ==
PROVIDERS: PCP Internal Medicine; Visit Provider Internal Medicine Cardiovascular Disease
DX: I10 Essential (primary) hypertension (principal); R06.00 Dyspnea, unspecified; R61 Generalized hyperhidrosis; R00.2 Palpitations; I25.709 Atherosclerosis of coronary artery bypass graft(s), unspecified, with unspecified angina pectoris; E78.5 Hyperlipidemia, unspecified; E11.9 Type 2 diabetes mellitus without complications; E66.9 Obesity, unspecified; J45.990 Exercise induced bronchospasm
CPT/HCPCS: 78452; 93017; 93306; A9500; A4216; J2785

== ENCOUNTER → 2021-09-16 | Outpatient (CLI) | payer MEDICARE, SELFPAY ==
--- NOTE | 2021-09-16 11:49 | BI_ITS ---
MAMMOGRAPHY - BILATERAL SCREENING 3-D TOMOSYNTHESIS REASON FOR EXAM: Female, 66 years old. Routine screening PERTINENT HISTORY: No significant family history, previous right breast biopsy. TECHNIQUE: 2-D mammograms and 3-D Tomosynthesis of the breast (s) were performed. CAD was performed. COMPARISON: 09/11/2020 FINDINGS: The breast composition is composed of scattered fibroglandular density. Scattered benign calcifications are seen. No dense spiculated masses or suspicious microcalcifications are identified. No architectural distortion is identified. There is no skin thickening or retraction. There has been no significant change since the prior study. BI/SCRN MAMM (CAD)W/ROB BILAT IMPRESSION: No mammographic signs of malignancy. Routine yearly mammograms recommended. ASSESSMENT CATEGORY: BIRADS Category 2: Benign. A letter regarding these results will be sent to the patient by the facility within 30 days. FOLLOW UP RECOMMENDATION: Yearly follow up mammogram recommended. (A) Approximately 10% of breast cancers are not detected by mammography. A normal mammogram should not delay biopsy of a clinically suspicious abnormality. Electronically Signed: Armin Post MD at 14:57 EDT ,
== END | disposition home or self-care (01) ==
LOC: OPBI 11:47
PROVIDERS: PCP Internal Medicine; Referring Provider Internal Medicine; Visit Provider Internal Medicine
DX: Z12.31 Encounter for screening mammogram for malignant neoplasm of breast (principal)
CPT/HCPCS: 77063; 77067

== ENCOUNTER 2021-10-18 18:27 | Emergency (ER) | payer MEDICARE, SELFPAY ==
[2021-10-18 18:28] VITALS: BP 134/78; PULSE 100; RESP 16; TEMP 36.6; O2SAT 98; BMI 33.5
[2021-10-18 19:17] LABS: Mucous, Urine 0 SEEN /hpf (<or=2+)
[2021-10-18 19:33] LABS: Color, Urine Straw (Yellow); Glucose, Dipstick Normal (Normal); Ketone-Dipstick Negative (Negative); Leukocyte Esterase-Dipstick 500 /ul (Negative); Nitrite-Dipstick Positive (Negative); Occult Blood-Urine 25 /ul (Negative); Protein-Dipstick 15 mg/dl (Negative); Specific Gravity, Urine 1.015 (1.002-1.030); Urine Bilirubin Dipstick Negative (Negative); Urine Clarity Sl. Cloudy (Clear); Urine Urobilinogen Normal (Normal)
[2021-10-18 19:41] LABS: Red Blood Cells-Urine 0-5 SEEN /hpf (0-5); White Blood Cells 25-50 SEEN /hpf (0-5)
[2021-10-18 19:42] LABS: Bacteria 4+ /hpf (None Seen); Squamous Epithelial Cells - UA 5-10 SEEN /hpf (5-10)
--- NOTE | 2021-10-18 21:09 | EX.ED.DYSGE1 ---
HPI History of Present Illness Chief Complaint: Complaint Informant: patient Onset/Context/Timing Onset: Today Context: Gradual Onset Current Severity: Moderate Maximum Severity: Severe Narrative Narrative: Patient presents secondary to dysuria and left flank pain. She states she had some mild burning after urination this morning. It progressed slightly during the day and after waking from a nap tonight she had severe pain. She points to the left lower quadrant states it feels that it is going through to her back. She does have a history of a right-sided kidney stone in the past. 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 Candidiasis of mouth COVID-19 virus detected (10/04/20) Essential hypertension Excessive sweating Exercise-induced bronchospasm GERD (gastroesophageal reflux disease) History of TIA (transient ischemic attack) (2006) Hyperlipidemia Obesity Seasonal allergic rhinitis Type 2 diabetes mellitus Home Medications hydrochlorothiazide 25 mg tablet 12.5 mg PO DAILY diuretic/water pill 11/05/15 [History Last Taken 10/05/20] pantoprazole 40 mg tablet,delayed release 40 mg PO DAILY gerd 11/05/15 [History Last Taken 10/05/20] simvastatin 40 mg tablet 40 mg PO QHS cholesterol 11/05/15 [History Last Taken 10/04/20] lisinopril 10 mg tablet 10 mg PO QHS blood pressure 07/09/17 [History Last Taken 10/04/20] benzonatate 200 mg capsule 200 mg PO TID PRN cough #90 caps 04/19/18 [Rx Last Taken Unknown] fluticasone propionate 50 mcg/actuation nasal spray,suspension (Flonase Allergy Relief) 2 spray intranasal DAILY #18.2 grams 07/20/18 [Rx Last Taken Unknown] albuterol sulfate 2.5 mg/3 mL (0.083 %) solution for nebulization 2.5 mg (3 mL) inhalation Q4H PRN Sob &/Or Wheezing #180 vials 04/21/19 [Rx Last Taken Unknown] amitriptyline 50 mg tablet 50 mg PO QHS sleep 06/25/19 [History Last Taken Unknown] nebulizers #1 ea 04/02/20 [Rx Last Taken Unknown] metformin 500 mg tablet 500 mg PO BID 08/07/20 [History Last Taken 10/05/20] zolpidem 10 mg tablet (Ambien) 10 mg PO QHS PRN Sleep 10/05/20 [History Last Taken Unknown] cetirizine 10 mg capsule 10 mg PO HS #30 caps 11/19/20 [Rx Last Taken Unknown] Fasenra 30 mg/mL subcutaneous syringe (benralizumab) 30 mg subcut Q8W #1 mL 12/12/20 [Rx Last Taken Unknown] prednisone 10 mg tablet 10 mg PO QDAY PRN 05/29/21 [History Last Taken Unknown] albuterol sulfate 90 mcg/actuation aerosol inhaler (Ventolin HFA) 2 puff inhalation Q4H PRN shortness of breath or wheezing #1 device 08/07/21 [Rx Last Taken Unknown] montelukast 10 mg tablet 10 mg PO QPM #30 tabs 09/18/21 [Rx Last Taken Unknown] phenazopyridine 200 mg tablet (Pyridium) 200 mg PO BID PRN PRN Pain #10 tabs 10/18/21 [Rx Last Taken Unknown] sulfamethoxazole 800 mg-trimethoprim 160 mg tablet (Bactrim DS) 1 tab PO BID #10 tabs 10/18/21 [Rx Last Taken Unknown] Allergy/AdvReac Type Severity Reaction Status Date / Time buprenorphine [From Butrans] Allergy Mild Hives Verified 10/18/21 18:30 terbinafine Allergy Mild Rash Verified 10/18/21 18:30 codeine Allergy Unknown Verified 10/18/21 18:30 nortriptyline AdvReac Mild Upset Verified 10/18/21 18:30 Stomach omeprazole AdvReac Mild Diarrhea Verified 10/18/21 18:30 Penicillins AdvReac Mild yeast Verified 10/18/21 18:30 infection naproxen [From Naprosyn] AdvReac gi upset Verified 10/18/21 18:30 nortriptyline HCl AdvReac Upset Verified 10/18/21 18:30 [From Pamelor] Stomach Family History Mother Anxiety Hypertension kidney/renal disease High cholesterol Brother Heart disease Cancer Bladder Cancer CAD (coronary artery disease) Father Heart disease Myocardial infarction, Onset Age: 43 CAD (coronary artery disease) Brother CAD (coronary artery disease) Surgical History History of back surgery History of D&C History of hysterectomy History of left heart catheterization (05/27/07) History of right breast biopsy History of tonsillectomy History of tubal ligation Social History Smoking Status: Never smoker second hand exposure: No alcohol intake: never substance use type: does not use caffeine: No what type of physical activity do you participate in: none ROS ROS ED Constitutional Constitutional ED: Denies chills or fever(s) Eyes Eyes: Denies change in vision or discharge from eye(s) ENT ENT ED: Denies discharge from eye(s), rhinorrhea or sore throat Cardiovascular Cardiovascular: Denies chest pain or palpitations Respiratory/Chest Respiratory/Chest: Denies cough or dyspnea Gastrointestinal Gastrointestinal: Reports abdominal pain and nausea; Denies diarrhea or vomiting Genitourinary Genitourinary ED: Reports dysuria; Denies difficulty urinating Musculoskeletal Musculoskeletal: Reports back pain; Denies extremity pain Integumentary Denies Abrasions or rash Neurologic Neurologic: Denies headache(s) or weakness Psychiatric Psychiatric: Denies anxiety or depression Allergic/Immunologic Allergic/Immunologic ED: Denies lip swelling or urticaria EXAM Physical Exam Const Vital Signs: 10/18/21 18:28 Temperature 97.9 F Temperature Source Temporal Pulse Rate 100 Respiratory Rate 16 Blood Pressure 134/78 H Blood Pressure Mean 96 Pulse Ox 98 Oxygen Delivery Method Room Air Positive well nourished and well developed General Appearance ED: well developed HEENT Reports normocephalic and head/scalp atraumatic Eyes PERRL and EOMs intact bilaterally Neck supple Chest Wall inspection of chest normal and palpation of chest normal Resp normal respiratory effort and clear to auscultation bilaterally Cardio regular rate and regular rhythm GI Palpation: soft and tender suprapubic Back/Spine no CVA tenderness Extremity normal to inspection Neuro oriented x3 and no sensory deficits noted Sensorium / Orientation: alert Motor Exam: strength 5/5 throughout Psych mental status grossly normal Skin no rashes or lesions noted MDM MDM MDM Narrative Medical decision making narrative: Patient given ibuprofen, Blount, Zofran for pain and nausea. Urinalysis obtained per nursing protocol. CT flank ordered at time of my exam. Lab Data Attestation: I reviewed the patient's lab results. Labs: Laboratory Results - last 24 hr 10/18/21 19:10 Urine Color Straw Urine Clarity Sl. Cloudy Urine pH 6.0 Ur Specific Crawley 1.015 Urine Protein 15 H Urine Glucose (UA) Normal Urine Ketones Negative Urine Occult Blood 25 H Urine Nitrite Positive H Urine Bilirubin Negative Urine Urobilinogen Normal Ur Leukocyte Esterase 500 H Urine RBC 0-5 SEEN Urine WBC 25-50 SEEN Ur Squamous Epith Cells 5-10 SEEN Urine Bacteria 4+ Urine Mucus 0 SEEN Radiography Diagnostic Testing: Clinical Impression(s) from Imaging Studies Abdomen/Pelvis CT 10/18/21 21:20 IMPRESSION: Acute urinary cystitis Electronically Signed: Kory Luna DO at 21:47 EDT , Treatment and Re-Evaluation Narrative: Patient does have evidence of UTI with 4+ bacteria and positive nitrites. CT scan consistent with acute cystitis, no evidence of kidney stone. Patient is treated with Bactrim and Azo. Return instructions provided. Discharge Plan Triage Chief Complaint: Complaint ED Provider: Lisa Cali Dx/Rx/DC Orders Clinical Impression: Cystitis Instructions: ED Cystitis Female Adult Prescriptions: New phenazopyridine [Pyridium] 200 mg tablet 200 mg PO BID PRN PRN (Reason: Pain) Qty: 10 0RF sulfamethoxazole-trimethoprim [Bactrim DS] 800-160 mg tablet 1 tab PO BID Qty: 10 0RF No Action benzonatate 200 mg capsule 200 mg PO TID PRN (Reason: cough) Qty: 90 0RF albuterol sulfate 2.5 mg /3 mL (0.083 %) solution for nebulization 2.5 mg inhalation Q4H PRN (Reason: Sob &/Or Wheezing) Qty: 180 6RF metformin 500 mg tablet 500 mg PO BID prednisone 10 mg tablet 10 mg PO QDAY PRN albuterol sulfate [Ventolin HFA] 90 mcg/actuation HFA aerosol inhaler 2 puff INHALATION Q4H PRN (Reason: shortness of breath or wheezing) Qty: 1 6RF simvastatin 40 MG tablet 40 mg PO QHS pantoprazole 40 MG tablet 40 mg PO DAILY hydrochlorothiazide 25 MG tablet 12.5 mg PO DAILY lisinopril 10 MG tablet 10 mg PO QHS amitriptyline 50 MG tablet 50 mg PO QHS zolpidem [Ambien] 10 mg Tablet 10 mg PO QHS PRN (Reason: Sleep) fluticasone propionate [Flonase Allergy Relief] 50 mcg/actuation spray,suspension 2 spray INTRANASAL DAILY Qty: 18.2 8RF (DME) nebulizers Misc See Rx Instructions .ROUTE .MEDSUPPLY Qty: 1 0RF Rx Instructions: As directed cetirizine 10 mg capsule 10 mg PO HS Qty: 30 11RF Fasenra 30 mg/mL syringe 30 mg SC Q8W Qty: 1 12RF montelukast 10 mg tablet 10 mg PO QPM Qty: 30 6RF Primary Care Provider: Elin Dickson Referrals: Elin Dickson DO [Primary Care Provider] - 1 Week if not improving Disposition Disposition: Home, Self Care
[2021-10-18] MEDS: HYDROcodone Bitartrate/Apap 5/325 Tablet PO (21:12)
[2021-10-18] MEDS: Ondansetron ODT 4 MG Tablet PO (21:12)
[2021-10-18] MEDS: Ibuprofen 600 MG Tablet PO (21:12)
[2021-10-18] MEDS: Smz/Tmp Ds Tablet 1 TABLET PO (21:16)
[2021-10-18] MEDS: Phenazopyridine 95 MG Tablet 190 MG PO (21:16)
--- NOTE | 2021-10-18 21:20 | CT_ITS ---
STUDY: CT ABDOMEN AND PELVIS WITHOUT CONTRAST REASON FOR EXAM: Female, 66 years old. Left flank pain, UTI, H/O stones RADIATION DOSAGE (If Supplied By Facility): CTDIvol = ( 17.26 ) mGy, DLP = ( 875.10 ) mGycm TECHNIQUE: Transaxial images were obtained from the dome of the diaphragm to the symphysis pubis without oral contrast, and without intravenous contrast. Sagittal and coronal images were reconstructed. Individualized dose optimization techniques were used for this CT. COMPARISON: None. FINDINGS: The visualized lung bases are unremarkable. The visualized portions of the heart are within normal limits. There is decreased attenuation of the liver consistent with steatosis. Normal gallbladder and extrahepatic biliary system. Normal spleen. Normal pancreas. Normal bilateral adrenal glands. Normal right kidney. Normal left kidney. Normal visualized stomach. Normal small intestine. There are multiple colonic diverticula consistent with diverticulosis. The appendix is visualized and appears normal. There is diffuse atherosclerotic calcification of the abdominal aorta, without a demonstrated aneurysm. Normal inferior vena cava. Normal retroperitoneum. There is circumferential bladder wall thickening with some inflammation suggesting acute urinary cystitis. No evidence of obstructive hydronephrosis. There is absence of the uterus consistent with a prior hysterectomy. Normal abdominal wall. There are diffuse degenerative changes of the visualized lumbar spine. Fusion hardware from L4 through S1. CT/Abdomen/Pelvis without Cont IMPRESSION: Acute urinary cystitis Electronically Signed: Kory Luna DO at 21:47 EDT ,
== END 2021-10-18 22:13 | disposition home or self-care (01) ==
PROVIDERS: Emergency Provider Emergency Medicine; PCP Internal Medicine; Visit Provider Emergency Medicine
DX: N30.00 Acute cystitis without hematuria (principal); I25.10 Atherosclerotic heart disease of native coronary artery without angina pectoris; Z86.73 Personal history of transient ischemic attack (TIA), and cerebral infarction without residual deficits; Z86.16 Personal history of COVID-19
CPT/HCPCS: 74176; 81001; 87077; 87086; 87088; 87186; 99283

== ENCOUNTER → 2022-03-06 | Outpatient (CLI) | payer MEDICARE, SELFPAY ==
[2022-03-06 10:20] LABS: ALB/GLOB Ratio 0.8 RATIO (0.9-2.4); AST(SGOT) 85 U/L (15-37); Alanine Aminotransfer ALT/SGPT 79 U/L (13-56); Albumin, Serum 3.6 g/dL (3.2-5.0); Alkaline Phosphatase 121 U/L (45-117); Anion Gap 7 (5-15); BUN 18 mg/dL (7-18); BUN/Creat Ratio 17.6 RATIO (10-20); Calcium,Total 9.4 mg/dL (8.5-10.1); Chloride 103 mmol/L (98-107); Creatinine, Serum 1.02 mg/dL (0.55-1.02); EST Glomerular Filtration Rate 58 mL/min (>60); Est Glom Filt Rate - Afr Amer 70 mL/min (>60); Globulin 4.5 g/dL (2.2-4.2); Glucose 180 mg/dL (74-106); Potassium 4.4 mmol/L (3.5-5.1); Protein, Total 8.1 g/dL (6.4-8.2); Sodium Level 138 mmol/L (136-145)
[2022-03-06 10:54] LABS: Hepatitis B Surface Antibody Non-Reactive; Hepatitis B Surface Antigen Non-Reactive (Nonreactive); Hepatitis C Antibody Non-Reactive (Nonreactive)
[2022-03-07 07:08] LABS: Hepatitis B Core Ab Total Negative (Negative)
[2022-03-07 12:50] LABS: Hepatitis A AB, Total Negative (Negative)
== END | disposition home or self-care (01) ==
LOC: LAB 09:09
PROVIDERS: PCP Internal Medicine; Referring Provider Internal Medicine; Visit Provider Internal Medicine
DX: K21.9 Gastro-esophageal reflux disease without esophagitis (principal); K76.0 Fatty (change of) liver, not elsewhere classified; K58.9 Irritable bowel syndrome, unspecified
CPT/HCPCS: 36415; 80053; 86704; 86706; 86708; 86803; 87340

== ENCOUNTER → 2022-04-29 | Outpatient (CLI) | payer MEDICARE, SELFPAY ==
[2022-04-29 10:08] LABS: Hematocrit 42.5 % (37-47); Hemoglobin 13.7 g/dL (12.0-15.0); Mean Corp Hgb Conc 32.2 g/dL (32-36); Mean Corpuscular Hgb 28.4 pg (27.0-32.0); Platelet Count 309 K/mm3 (150-450); RBC Distribution Width CV 13.5 % (11.6-14.6); RBC Distribution Width SD 43.4 fl (35.1-43.9); Red Blood Count 4.83 M/mm3 (4.2-5.4); White Blood Count 8.6 K/mm3 (4.4-11.0)
[2022-04-29 10:27] LABS: Prothrombin Time (Protime)PT. 13.3 SECONDS (11.7-14.9)
[2022-04-29 10:50] LABS: ALB/GLOB Ratio 0.7 RATIO (0.9-2.4); AST(SGOT) 63 U/L (15-37); Alanine Aminotransfer ALT/SGPT 76 U/L (13-56); Albumin, Serum 3.5 g/dL (3.2-5.0); Alkaline Phosphatase 146 U/L (45-117); Anion Gap 8 (5-15); BUN 21 mg/dL (7-18); BUN/Creat Ratio 21.7 RATIO (10-20); Calcium,Total 9.8 mg/dL (8.5-10.1); Chloride 101 mmol/L (98-107); Creatinine, Serum 0.97 mg/dL (0.55-1.02); EST Glomerular Filtration Rate 61 mL/min (>60); Est Glom Filt Rate - Afr Amer 74 mL/min (>60); Ferritin 150 ng/mL (8-252); Globulin 4.7 g/dL (2.2-4.2); Glucose 182 mg/dL (74-106); Iron 79 ug/dL (50-170); Iron Binding Capacity,Total 361 ug/dL (250-450); PERCENT IRON SATURATION 21.9 % (15.0-55.0); Potassium 4.3 mmol/L (3.5-5.1); Protein, Total 8.2 g/dL (6.4-8.2); Sodium Level 135 mmol/L (136-145); Thyroid Stim Hormone (TSH) 2.22 uIU/mL (0.358-3.74)
[2022-04-30 17:07] LABS: ANTINUCLEAR ANTIBODIES DIRECT Negative (Negative)
[2022-04-30 21:27] LABS: Alpha Antitrypsin Serum 177 mg/dL (101-187); Anti-Mitochondrial AB <20.0 Units (0.0-20.0)
[2022-05-01 09:10] LABS: Cytoplasmic Ab (C-ANCA) <1:20 titer (Neg:<1:20)
[2022-05-01 15:32] LABS: Anti-Smooth Muscle ABS 10 Units (0-19); Ceruloplasmin 30.8 mg/dL (19.0-39.0); Perinuclear Ab (P-ANCA) <1:20 titer (Neg:<1:20)
== END | disposition home or self-care (01) ==
LOC: LAB 09:38
PROVIDERS: PCP Internal Medicine; Referring Provider Internal Medicine; Visit Provider Internal Medicine
DX: K76.0 Fatty (change of) liver, not elsewhere classified (principal); K86.2 Cyst of pancreas; Z79.899 Other long term (current) drug therapy
CPT/HCPCS: 36415; 80053; 82103; 82390; 82728; 83516; 83540; 83550; 84443; 85027; 85610; 86038; 86256

== ENCOUNTER → 2022-04-30 | Outpatient (CLI) | payer MEDICARE, SELFPAY ==
--- NOTE | 2022-04-30 07:55 | US_ITS ---
STUDY: ABDOMINAL ULTRASOUND REASON FOR EXAM: Female, 67 years old. Abnormal LFTs TECHNIQUE: Transabdominal ultrasound was performed with real-time and static toht scale imaging. TECHNICAL QUALITY: Adequate. COMPARISON: 09/11/2020 FINDINGS: Liver: The liver measures 19 cm. There is increased echogenicity consistent with fatty infiltration. The bile ducts are within normal limits. There is hepatic color flow. The direction of portal flow is hepatopetal. There is no demonstrated mass lesion. Portal vein measurement: Gallbladder: Normal distended gallbladder. The gallbladder wall measures 1.9 mm. There is a negative sonographic Kearns''s sign. There is no pericholecystic fluid. There are no gallstones. Common Bile Duct (C.B.D.): The common bile duct measures 6.2 mm. Pancreas: Normal size of the head, body and tail of the pancreas. There is normal echogenicity of the pancreas. There is a stable 7 mm pancreatic cyst. Spleen: Normal size of the spleen. The spleen measures 11.0 cm. Right Kidney: Normal size of the right kidney. The right kidney measures 11.7 x 5.1 x 4.0 cm. Normal renal cortex. The right cortex measures 1.5 cm. There is no demonstrated renal mass or cyst. There is no right hydronephrosis. Left Kidney: Normal size of the left kidney. The left kidney measures 10.9 x 5.1 x 5.1 cm. Normal renal cortex. The left cortex measures 1.7 cm. There is no demonstrated renal mass or cyst. There is no left hydronephrosis. Aorta: Tapers normally I.V.C.: The IVC is patent. There is no ascites. US/Abdomen Complete IMPRESSION: Hepatomegaly with diffuse fatty infiltration of the liver, no discrete lesion Stable known simple pancreatic cyst No interval change Electronically Signed: Armin Post MD at 10:05 EDT ,
== END | disposition home or self-care (01) ==
PROVIDERS: PCP Internal Medicine
DX: K76.0 Fatty (change of) liver, not elsewhere classified (principal); K86.2 Cyst of pancreas
CPT/HCPCS: 76700

== ENCOUNTER → 2022-05-31 | Outpatient (CLI) | payer MEDICARE, SELFPAY ==
--- NOTE | 2022-05-31 09:45 | MRI_ITS ---
STUDY: MR CHOLANGIOPANCREATOGRAPHY (MRCP) REASON FOR EXAM: Female, 67 years old. ABD PAIN, FATTY LIVER TECHNIQUE: Standard MRCP technique was utilized. 3-D postprocessing images were obtained. COMPARISON: ct 10.18.21 and US 04.30.22. FINDINGS: There is diffuse fatty infiltration of the liver. There are calcifications of the abdominal aorta. This is consistent for atherosclerotic disease. There is NO abdominal aortic aneurysm. Vascular workup can be obtained based on clinical correlation. Gall Bladder: Normal gallbladder and extrahepatic biliary system. Cystic duct: Normal with no demonstrated fixed filling defect. Intrahepatic ducts: Normal visualized intrahepatic ducts with no demonstrated fixed filling defect, dilation or stricture. Common hepatic duct: Normal with no demonstrated fixed filling defect, dilation or stricture. Common bile duct: Normal with no demonstrated fixed filling defect, dilation or stricture. Pancreatic duct: Normal with no demonstrated fixed filling defect, dilation or stricture. MRI/MRCP Abdomen without Contrast IMPRESSION: There is diffuse fatty infiltration of the liver. Electronically Signed: Neo Graham MD at 17:27 EDT ,
== END | disposition home or self-care (01) ==
PROVIDERS: PCP Internal Medicine; Referring Provider Internal Medicine; Visit Provider Internal Medicine
DX: R10.9 Unspecified abdominal pain (principal); K76.0 Fatty (change of) liver, not elsewhere classified; K83.01 Primary sclerosing cholangitis
CPT/HCPCS: 74181

== ENCOUNTER → 2022-09-17 | Outpatient (CLI) | payer MEDICARE, SELFPAY ==
--- NOTE | 2022-09-17 11:10 | RAD_ITS ---
STUDY: X-RAY - LUMBAR SPINE REASON FOR EXAM: Female, 67 years old. Low back pain, episodic TECHNIQUE: XR Spine Lumbar 4 Views COMPARISON: 05.27.16 FINDINGS: Normal lumbar lordosis. There is no substantial scoliosis. There is a normal alignment of the vertebrae. Normal vertebral bodies and endplates. Normal disc space heights. There are atherosclerotic vascular calcifications. Pedicle screws noted at L4, L5, and S1. Disc spacer at L5-S1. No evidence for hardware failure. The soft tissue structures are unremarkable. RAD/L/S Spine Min 4 Views IMPRESSION: There are no acute findings. Electronically Signed: Neo Graham MD at 16:14 EDT ,
== END | disposition home or self-care (01) ==
LOC: RAD 11:02
PROVIDERS: PCP Internal Medicine; Referring Provider Internal Medicine; Visit Provider Internal Medicine
DX: M54.50 Low back pain, unspecified (principal)
CPT/HCPCS: 72110

== ENCOUNTER → 2022-09-23 | Outpatient (CLI) | payer MEDICARE, SELFPAY ==
--- NOTE | 2022-09-23 15:23 | BI_ITS ---
MAMMOGRAPHY - BILATERAL SCREENING REASON FOR EXAM: Female, 67 years old. Routine annual screening examination. PERTINENT HISTORY: Non-contributory. History of remote right excisional breast biopsy. TECHNIQUE: Digital bilateral breast rob (3D mammographic acquisition) in the CC and MLO projections. 2-D mediolateral oblique (MLO) and craniocaudad (CC) views of both breasts were obtained. CAD: Full Field Digital Mammography with Computer Added Detection was performed. COMPARISON: Comparison is made with prior study September 16, 2021 and September 11, 2020. FINDINGS: Breast Composition: There are scattered areas of fibroglandular density. There are no dominant masses or suspicious calcifications. Stable benign-appearing bilateral axillary lymph nodes. No other significant abnormalities are identified. There has been no significant change since the prior study. BI/SCRN MAMM (CAD)W/ROB BILAT IMPRESSION: Stable bilateral screening mammogram. Yearly follow-up mammogram recommended. (A) ASSESSMENT CATEGORY: BIRADS Category 2: Benign. A letter regarding these results will be sent to the patient by the facility within 30 days. Approximately 10% of breast cancers are not detected by mammography. A normal mammogram should not delay biopsy of a clinically suspicious abnormality. [id number] Electronically Signed: Tashi Mathias MD at 8:37 EDT ,
--- NOTE | 2022-09-23 15:29 | BD_ITS ---
STUDY: DUAL ENERGY X-RAY ABSORPTIOMETRY / DXA REASON FOR EXAM: Female, 67 years old. [id number] TECHNIQUE: Bone Mineral Density (BMD) measurements of lumbar spine and bilateral hips were obtained. COMPARISON: Comparison is made with prior study dated September 11, 2020. FINDINGS: Lumbar Spine (L1-L4): g/cm2 (0.895) / T-score (-0.8) / Z-score (0.9) Findings are suggestive of normal bone density with a low fracture risk. Left Femur Total: g/cm2 (0.926) / T-score (-0.1) / Z-score (1.1) Left Femoral Neck: g/cm2 (0.699) / T-score (-1.4) / Z-score (0.2) Right Femur Total: g/cm2 (0.981) / T-score (0.3) / Z-score (1.6) Right Femoral Neck: g/cm2 (0.733) / T-score (-1.0) / Z-score (0.5) The T-Scores on the most recent prior examination were: Lumbar Spine (L1-L4): There has been improvement of bone density since the previous examination. Left Femur Total: which represents an improvement of 4.9%. Right Femur Total: which represents an improvement of 2.7%. BD/Dexa Bone Density Study IMPRESSION: The patient is considered osteopenic as outlined below according to World [employer] Organization (WHO) criteria with a low fracture risk. There has been improvement of bone density since the previous examination. Reference Information: The T-score is the number of standard deviations above or below the standard which is normal for young adults at their peak bone mineral density. The World Health Organization (WHO) interprets the T-scores as follows: Above -1 Normal bone density Between -1 and -2.5 Osteopenia Equal to / or below -2.5 Osteoporosis As a practical clinical guideline, osteopenia may be graded as follows: Mild -1 through -1.5 Moderate -1.6 through -2.0 Severe -2.1 through -2.4 The Z-score is the number of standard deviations above or below age-matched controls. A Z-score of less than -1.5 would be considered abnormal. References: 1. NIH Osteoporosis and Related Bone Diseases www osteo.org 2. International Society for Clinical Densitometry www iscd.org 3. National Osteoporosis Foundation www nof.org Electronically Signed: Tashi Mathias MD at 14:26 EDT ,
== END | disposition home or self-care (01) ==
LOC: OPBD 15:21
PROVIDERS: PCP Internal Medicine; Referring Provider Obstetrics & Gynecology; Visit Provider Obstetrics & Gynecology
DX: N95.9 Unspecified menopausal and perimenopausal disorder (principal); Z12.31 Encounter for screening mammogram for malignant neoplasm of breast
CPT/HCPCS: 77063; 77067; 77080

== ENCOUNTER 2022-11-10 16:04 | Emergency (ER) | payer OTHER, MEDICARE, SELFPAY ==
[2022-11-10 16:05] VITALS: BP 146/73; PULSE 94; RESP 16; TEMP 36.4; O2SAT 98; BMI 33.5
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
--- NOTE | 2022-11-10 17:52 | CT_ITS ---
EXAM: CT CHEST WITHOUT INTRAVENOUS CONTRAST CLINICAL INDICATION: right sided posterior rib pain r/o fracture TECHNIQUE: Helically acquired images were obtained of the chest without intravenous contrast. This CT exam was performed using one or more of the following dose reduction techniques: automated exposure control, adjustment of the mA and/or kV according to patient size, and/or use of iterative reconstruction technique. COMPARISON: CTA chest dated 06/25/2019 FINDINGS: LUNGS AND PLEURAL SPACES: There is minimal scarring seen within the right upper lobe and lingula as well as both bases. There is no focal consolidation or effusion. No mass. No pneumothorax. HEART: There are mild to moderate coronary artery calcifications. Heart size is normal. No pericardial effusion. MEDIASTINUM: Unremarkable. No mediastinal or hilar adenopathy. Esophagus is unremarkable. No hiatal hernia. THYROID: Unremarkable. No thyroid lesions. BONES/JOINTS: Unremarkable. No suspicious lytic or blastic abnormality. VASCULATURE: See above. CT/Chest without Contrast IMPRESSION: Minimal scarring in both lungs. There is no acute pulmonary abnormality. There are no osseous abnormalities. Electronically Signed: Robin Gaytan MD at 18:39 EDT ,
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
[2022-11-10] MEDS: Ibuprofen 200 MG Tablet 400 MG PO (17:59)
[2022-11-10] MEDS: Oxycodone/Apap 5/325 Tablet PO (17:59)
[2022-11-10 19:29] VITALS: RESP 18
== END 2022-11-10 19:33 | disposition home or self-care (01) ==
PROVIDERS: Emergency Provider Emergency Medicine; PCP Internal Medicine; Visit Provider Emergency Medicine
DX: M54.50 Low back pain, unspecified (principal); I25.10 Atherosclerotic heart disease of native coronary artery without angina pectoris; Z86.16 Personal history of COVID-19; Z86.73 Personal history of transient ischemic attack (TIA), and cerebral infarction without residual deficits; V89.2XXA Person injured in unspecified motor-vehicle accident, traffic, initial encounter
CPT/HCPCS: 71250; 72128; 72131; 99283

== ENCOUNTER → 2022-12-18 | Outpatient (CLI) | payer MEDICARE, SELFPAY ==
[2022-12-18 09:52] LABS: ALB/GLOB Ratio 0.8 RATIO (0.9-2.4); AST(SGOT) 42 U/L (15-37); Alanine Aminotransfer ALT/SGPT 50 U/L (13-56); Albumin, Serum 3.5 g/dL (3.2-5.0); Alkaline Phosphatase 142 U/L (45-117); Anion Gap 5 (5-15); BUN 13 mg/dL (7-18); BUN/Creat Ratio 13.9 RATIO (10-20); Calcium,Total 9.6 mg/dL (8.5-10.1); Chloride 104 mmol/L (98-107); Creatinine, Serum 0.94 mg/dL (0.55-1.02); EST Glomerular Filtration Rate 64 mL/min (>60); Est Glom Filt Rate - Afr Amer 77 mL/min (>60); Globulin 4.5 g/dL (2.2-4.2); Glucose 153 mg/dL (74-106); Potassium 4.4 mmol/L (3.5-5.1); Sodium Level 138 mmol/L (136-145)
== END | disposition home or self-care (01) ==
LOC: LAB 08:22
PROVIDERS: PCP Internal Medicine; Referring Provider Internal Medicine; Visit Provider Internal Medicine
DX: K75.81 Nonalcoholic steatohepatitis (NASH) (principal)
CPT/HCPCS: 36415; 80053

== ENCOUNTER → 2023-01-17 | Outpatient (CLI) | payer MEDICARE, SELFPAY ==
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
== END | disposition home or self-care (01) ==
PROVIDERS: PCP Internal Medicine; Referring Provider Internal Medicine; Visit Provider Internal Medicine
DX: M54.50 Low back pain, unspecified (principal)
CPT/HCPCS: 72148

== ENCOUNTER → 2023-10-27 | Outpatient (CLI) | payer MEDICARE, SELFPAY ==
--- NOTE | 2023-10-27 12:51 | VDLE_ITS ---
Reason For Study: Pain in left leg RIGHT LEFT CFV is compressible, spontaneous, phasic, GSV is normal. competent and demonstrates normal CFV is compressible, spontaneous, phasic, augmentation. competent, and demonstrates normal Procedure augmentation. This is a venous duplex using B-mode, color FV is compressible, spontaneous, phasic, flow and spectral Doppler. competent and demonstrates normal Exam performed in department. augmentation. A preliminary report was called and/or faxed POP V is compressible, spontaneous, phasic, to MOLLY Zhang. competent and demonstrates normal augmentation. T/P Trunk is compressible. PTV is compressible. LT PerV is compressible. VL/Venous Duplex US, Unilateral Interpretation Summary Deep veins of the left lower extremity are patent and compressible segmentally. There is no evidence of left lower extremity deep vein thrombosis. Valvular competence appears intac t within the proximal deep venous system on the left . The left great saphenous vein appears patent a nd compressible segmentally. The right common femoral vein is patent and compressible . Ordering Physician: Catrachita Benz Referring Physician: Elin Dickson M.D. Performed By: Karon Manning RVT
== END | disposition home or self-care (01) ==
LOC: CVS 12:47
PROVIDERS: PCP Internal Medicine; Referring Provider Nurse Practitioner Family; Visit Provider Nurse Practitioner Family
DX: M79.662 Pain in left lower leg (principal)
CPT/HCPCS: 93971

== ENCOUNTER 2023-11-10 09:11 | Emergency (ER) | payer MEDICARE, SELFPAY ==
[2023-11-10 09:12] VITALS: BP 135/69; PULSE 100; RESP 16; TEMP 36.1; O2SAT 96; BMI 32.7
--- NOTE | 2023-11-10 09:34 | EDS_ITS ---
HPI History of Present Illness HPI Narrative: 62-year-old female history of COPD, diabetes. Says she walks about 2 miles a day. 3 weeks ago was walking felt pain in her left calf. Thought she had a muscle spasm. Has been watching her diet make sure she drink plenty of fluid and eating fruits and vegetables occasional electrolyte abnormality. Had an ultrasound done which showed no DVT. She has no swelling but still has left mid calf pain. No fall or trauma. No prior leg surgery. She saw her primary care physician has an MRI scheduled for November 26. Chief Complaint: Lower Extremity Injury Informant: patient Occured/Mechanism Mechanism/Context: Yes injury Onset/Context/Timing Onset: Weeks Quality of Pain: Sharp Maximum Severity: Moderate Associated Symptoms Associated Symptoms: Negative for Parasthesia, Weakness or Loss of Funtion Narrative Prior similar symptoms: No Recent Illness/Hospitalization: No PFSH PFSH Medical History Osteoarthritis of left hip Osteoarthritis of left knee Left knee pain Left hip pain COPD (chronic obstructive pulmonary disease) Atherosclerosis of coronary artery bypass graft of [place] heart with angina pectoris Excessive sweating History of TIA (transient ischemic attack) (2006) Obesity Type 2 diabetes mellitus COVID-19 virus detected (10/04/20) Essential hypertension Candidiasis of mouth Seasonal allergic rhinitis Exercise-induced bronchospasm Hyperlipidemia GERD (gastroesophageal reflux disease) 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 Back pain, sacroiliac Asthma Home Medications ?Medication ?Instructions ?Recorded ?Last Taken ?Type hydrochlorothiazide 25 mg tablet 12.5 mg PO DAILY diuretic/water 11/05/15 10/05/20 History pill simvastatin 40 mg tablet 40 mg PO QHS cholesterol 11/05/15 10/04/20 History lisinopril 10 mg tablet 10 mg PO QHS blood pressure 07/09/17 10/04/20 History albuterol sulfate 2.5 mg/3 mL 2.5 mg (3 mL) inhalation Q4H PRN 04/21/19 Unknown Rx (0.083 %) solution for nebulization Sob &/Or Wheezing #180 vials amitriptyline 50 mg tablet 50 mg PO QHS sleep 06/25/19 Unknown History nebulizers #1 ea 04/02/20 Unknown Rx metformin 500 mg tablet 500 mg PO BID 08/07/20 10/05/20 History Handicap Placcard #1 ea 12/20/22 Unknown Rx Fasenra 30 mg/mL subcutaneous 30 mg subcut Q8W #1 mL 01/14/23 Unknown Rx syringe (benralizumab) albuterol sulfate 90 mcg/actuation 2 puff inhalation Q4H PRN 02/18/23 Unknown Rx aerosol inhaler (Ventolin HFA) shortness of breath or wheezing #1 device pantoprazole 40 mg tablet,delayed 40 mg PO BID gerd 04/09/23 Unknown History release cetirizine 10 mg capsule 10 mg PO HS #90 caps 08/26/23 Unknown Rx montelukast 10 mg tablet 10 mg PO QPM #90 tabs 08/26/23 Unknown Rx Allergy/AdvReac Type Severity Reaction Status Date / Time buprenorphine (From Butrans) Allergy Mild Hives Verified 11/10/23 09:14 terbinafine Allergy Mild Rash Verified 11/10/23 09:14 codeine Allergy Unknown Verified 11/10/23 09:14 nortriptyline AdvReac Mild Upset Verified 11/10/23 09:14 Stomach omeprazole AdvReac Mild Diarrhea Verified 11/10/23 09:14 Penicillins AdvReac Mild yeast Verified 11/10/23 09:14 infection naproxen (From Naprosyn) AdvReac gi upset Verified 11/10/23 09:14 nortriptyline HCl (From AdvReac Upset Verified 11/10/23 09:14 Pamelor) Stomach Family History Mother Anxiety Hypertension kidney/renal disease High cholesterol Brother Heart disease Cancer Bladder Cancer CAD (coronary artery disease) Father Heart disease Myocardial infarction, Onset Age: 43 CAD (coronary artery disease) Brother CAD (coronary artery disease) Surgical History History of left heart catheterization (05/27/07) History of back surgery History of tubal ligation History of tonsillectomy History of hysterectomy History of D&C History of right breast biopsy Social History household members: spouse Smoking Status: Never smoker second hand exposure: No alcohol intake: never substance use type: does not use caffeine: No what type of physical activity do you participate in: none ROS ROS ED ROS Narrative Denies recent illness. Constitutional Constitutional ED: Denies fever(s) Eyes Eyes: Denies blurry vision ENT ENT ED: Denies ear pain Cardiovascular Cardiovascular: Denies chest pain Respiratory/Chest Respiratory/Chest: Denies cough Gastrointestinal Gastrointestinal: Denies abdominal pain Genitourinary Genitourinary ED: Denies dysuria Musculoskeletal Musculoskeletal: Denies arthralgias Integumentary Denies abscess Neurologic Neurologic: Denies headache(s) Psychiatric Psychiatric: Denies anxiety Endocrine Endocrinology: Denies polydipsia Hematologic/Lymphatic Hematologic/Lymphatic: Denies easy bleeding Allergic/Immunologic Allergic/Immunologic ED: Denies mouth swelling EXAM Physical Exam Narrative Exam Narrative: Well-appearing 68-year-old female. Vital signs stable afebrile. H EENT exam unremarkable. Lungs clear. Heart regular rate rhythm no murmur. Abdomen soft nontender. Moving all 4 extremities. Left proximal medial calf she has tenderness. There is no redness or warmth. There is no cord. There is no edema. There is no obvious tear. There is no bruising. Left lower leg is neurovascularly intact with normal dorsi plantarflexion. Normal flexion extension of her knee and hip. And normal DP pulse. Otherwise exam normal. Const Vital Signs: 11/10/23 09:12 Temperature 96.9 F L Temperature Source Temporal Pulse Rate 100 Respiratory Rate 16 Blood Pressure 135/69 H Blood Pressure Mean 91 Pulse Ox 96 Oxygen Delivery Method Room Air Positive well nourished and well developed; Negative for obese, cachectic, contractures or unkempt General Appearance ED: well developed and NAD; Negative for unkempt, cachectic or contractures Nutritional Appearance: Negative for cachectic or obese HEENT Reports moist mucous membranes normocephalic and atraumatic; Negative for trauma or tenderness Eyes PERRL Neck supple Thyroid: Negative for tender Lymph Lymphatic: Negative for other Chest Wall inspection of chest normal and palpation of chest normal Resp normal respiratory effort, no retractions and clear to auscultation bilaterally Effort and Inspection: Negative for pain with movement Auscultation: Negative for rales, rhonchi, wheezes or diminished lung sounds Cardio regular rate, regular rhythm, S1 normal heart sound, S2 normal heart sound and no murmurs Rate: Negative for bradycardia or tachycardic Rhythm: Negative for abnormal rhythm Bruits: Negative for other GI non-tender, non-distended and no masses Palpation: soft; Negative for tender or guarding Back/Spine no CVA tenderness Extremity normal to inspection and full ROM Extremity Narrative: Left medial proximal calf tenderness. No redness or warmth. No bruising. No edema. No cords. Left foot neurovascular intact with full range of motion. Strength. Sensation. Normal DP pulse. Neuro oriented x3, CN's II-XII intact bilaterally, moves all extremities and no sensory deficits noted Sensorium / Orientation: alert, oriented to person, oriented to place and oriented to time Motor Exam: strength 5/5 throughout Psych mental status grossly normal Appearance: Negative for unkempt Speech: No other Mood & Affect: Negative for anxious Skin no wounds Lesions: no lesions Rashes: no rashes MDM MDM MDM Narrative Medical decision making narrative: Chest pain 68-year-old female most likely calf strain will rule out tear. Scheduled for an MRI. Had a recent ultrasound negative and she has no risk factors for blood clot nor does it she have any edema. She does not need an x- ray because there is no fall or trauma or bony tenderness. I did speak to MRI they have no availability today. But they moved her appointment up from November 26 till this on the . Patient can do that appointment and it was rescheduled. Otherwise treated as a calf strain. Motrin. And massage. Discharge Plan Triage Chief Complaint: Lower Extremity Injury ED Provider: Bret Torres Dx/Rx/DC Orders Clinical Impression: Strain of left calf muscle Instructions: ED Muscle Strain, Extremity Prescriptions: No Action albuterol sulfate 2.5 mg /3 mL (0.083 %) solution for nebulization 2.5 mg inhalation Q4H PRN (Reason: Sob &/Or Wheezing) Qty: 180 6RF metformin 500 mg tablet 500 mg PO BID (DME) Handicap Placcard See Rx Instructions .ROUTE .MEDSUPPLY Qty: 1 0RF Rx Instructions: Length of Time: 99 months albuterol sulfate [Ventolin HFA] 90 mcg/actuation HFA aerosol inhaler 2 puff INHALATION Q4H PRN (Reason: shortness of breath or wheezing) Qty: 1 6RF cetirizine 10 mg capsule 10 mg PO HS Qty: 90 3RF montelukast 10 mg tablet 10 mg PO QPM Qty: 90 3RF simvastatin 40 MG tablet 40 mg PO QHS hydrochlorothiazide 25 MG tablet 12.5 mg PO DAILY pantoprazole 40 mg tablet,delayed release (DR/EC) 40 mg PO BID lisinopril 10 MG tablet 10 mg PO QHS amitriptyline 50 MG tablet 50 mg PO QHS (DME) nebulizers Misc See Rx Instructions .ROUTE .MEDSUPPLY Qty: 1 0RF Rx Instructions: As directed Fasenra 30 mg/mL syringe 30 mg SC Q8W Qty: 1 7RF Primary Care Provider: Elin Dickson Referrals: Elin Dickson DO [Primary Care Provider] - As Needed Activity Restrictions/Additional Instructions: I spoke to MRI. They have an opening and we will reschedule your MRI for this November 11 at 7:45 AM. They need you to be here at 7:15 AM. Motrin and Tylenol for pain. Massage. Print Language: Yoruba Disposition Disposition: Home, Self Care
== END 2023-11-10 09:40 | disposition home or self-care (01) ==
LOC: ED 09:55
PROVIDERS: Emergency Provider Emergency Medicine; PCP Internal Medicine; Visit Provider Emergency Medicine
DX: S86.112A Strain of other muscle(s) and tendon(s) of posterior muscle group at lower leg level, left leg, initial encounter (principal); J44.9 Chronic obstructive pulmonary disease, unspecified; E11.9 Type 2 diabetes mellitus without complications; I25.10 Atherosclerotic heart disease of native coronary artery without angina pectoris; X58.XXXA Exposure to other specified factors, initial encounter; Z86.16 Personal history of COVID-19; Z86.73 Personal history of transient ischemic attack (TIA), and cerebral infarction without residual deficits
CPT/HCPCS: 99282

== ENCOUNTER 2023-11-22 19:59 | Emergency (ER) | payer MEDICARE, SELFPAY ==
[2023-11-22 20:01] VITALS: BP 156/67; PULSE 106; RESP 20; TEMP 36.8; O2SAT 97; BMI 31.0
--- NOTE | 2023-11-22 20:20 | EKG12_ITS ---
Test Reason : DYSRHYTHMIA Blood Pressure : / mmHG Vent. Rate : 101 BPM Atrial Rate : 101 BPM P-R Int : 176 ms QRS Dur : 086 ms QT Int : 360 ms P-R-T Axes : 046 007 050 degrees QTc Int : 466 ms Sinus tachycardia Otherwise normal ECG Confirmed by LEVAR SANTANA, MACY ([id number]), newspaper photo editor SRI FORD ([id number]) on 11/27/2023 6:50:16 AM Referred By: ANDREA Confirmed By:MACY CRISTOBAL MD
--- NOTE | 2023-11-22 20:20 | CT_ITS ---
INDICATION: Headache EXAMINATION: CT BRAIN - CT Head or Brain W/O Contrast Injection TECHNIQUE: Multiple axial images were obtained of the head without intravenous contrast. A radiation dose optimization technique was used for this scan. IV Contrast dosage and agent: None. COMPARISON: 11/05/2015 FINDINGS: BRAIN PARENCHYMA: No intra- or extra-axial hemorrhage. No evidence of acute infarct. No intracranial mass or mass effect. There is preservation of the toth/white matter interface. Posterior fossa structures are unremarkable. CSF SPACES: Appropriate for age. No hydrocephalus. Basal cisterns are patent. CALVARIUM, SKULL BASE, PARANASAL SINUSES AND MASTOID AIR CELLS: Small mucous retention cyst right maxillary sinus. No discrete lytic or blastic abnormalities. ORBITS: Both globes, extraocular muscles, optic nerves and retrobulbar fat appear unremarkable. CT/Brain/Head without Contrast IMPRESSION: No acute intracranial findings. Electronically Signed: Myron Mcintyre MD at 21:32 EDT ,
--- NOTE | 2023-11-22 20:21 | EDS_ITS ---
HPI History of Present Illness Chief Complaint: Headache Narrative Narrative: 68-year-old female past medical history of hypertension, diabetes, presents with multiple somatic complaints ranging from not feeling right in the head/headache to difficulty breathing and reported low pulse ox. She has past medical history of asthma, and states that yesterday, she felt fine. She woke this morning at 830, almost 12 hours ago, and felt well until she went to go outside and work. This was around 11:00, and she states that she started to develop a headache and not feeling right. She denies any paresthesias of her arms or legs, no recent fevers or chills, no cough. She thought maybe she was dehydrated so she went inside, drink a lot of water and laid down for a nap. As the day has progressed, she still does not feel well. She states that prior to arrival, she felt short of breath as if she were having an asthma attack, and she noted that her pulse ox was in the 80s. She did nebulizer treatment and stated that on her home pulse ox, her pulse ox would not elevate appropriately. She presents mainly because she states she does not feel right in the head, and with her low pulse ox. 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 Back pain, sacroiliac Asthma Home Medications ?Medication ?Instructions ?Recorded ?Last Taken ?Type hydrochlorothiazide 25 mg tablet 12.5 mg PO DAILY diuretic/water 11/05/15 10/05/20 History pill simvastatin 40 mg tablet 40 mg PO QHS cholesterol 11/05/15 10/04/20 History lisinopril 10 mg tablet 10 mg PO QHS blood pressure 07/09/17 10/04/20 History albuterol sulfate 2.5 mg/3 mL 2.5 mg (3 mL) inhalation Q4H PRN 04/21/19 Unknown Rx (0.083 %) solution for nebulization Sob &/Or Wheezing #180 vials amitriptyline 50 mg tablet 50 mg PO QHS sleep 06/25/19 Unknown History nebulizers #1 ea 04/02/20 Unknown Rx metformin 500 mg tablet 500 mg PO BID 08/07/20 10/05/20 History Handicap Placcard #1 ea 02/04/22 Unknown Rx Fasenra 30 mg/mL subcutaneous 30 mg subcut Q8W #1 mL 01/14/23 Unknown Rx syringe (benralizumab) albuterol sulfate 90 mcg/actuation 2 puff inhalation Q4H PRN 02/18/23 Unknown Rx aerosol inhaler (Ventolin HFA) shortness of breath or wheezing #1 device pantoprazole 40 mg tablet,delayed 40 mg PO BID gerd 04/09/23 Unknown History release cetirizine 10 mg capsule 10 mg PO HS #90 caps 08/26/23 Unknown Rx montelukast 10 mg tablet 10 mg PO QPM #90 tabs 08/26/23 Unknown Rx Allergy/AdvReac Type Severity Reaction Status Date / Time buprenorphine (From Butrans) Allergy Mild Hives Verified 11/22/23 20:01 terbinafine Allergy Mild Rash Verified 11/22/23 20:01 codeine Allergy Unknown Verified 11/22/23 20:01 nortriptyline AdvReac Mild Upset Verified 11/22/23 20:01 Stomach omeprazole AdvReac Mild Diarrhea Verified 11/22/23 20:01 Penicillins AdvReac Mild yeast Verified 11/22/23 20:01 infection naproxen (From Naprosyn) AdvReac gi upset Verified 11/22/23 20:01 nortriptyline HCl (From AdvReac Upset Verified 11/22/23 20:01 Pamelor) Stomach Family History Mother Anxiety Hypertension kidney/renal disease High cholesterol Brother Heart disease Cancer Bladder Cancer CAD (coronary artery disease) Father Heart disease Myocardial infarction, Onset Age: 43 CAD (coronary artery disease) Brother CAD (coronary artery disease) Surgical History History of left heart catheterization (05/27/07) History of back surgery History of tubal ligation History of tonsillectomy History of hysterectomy History of D&C History of right breast biopsy Social History household members: spouse Smoking Status: Never smoker second hand exposure: No alcohol intake: never substance use type: does not use caffeine: No what type of physical activity do you participate in: none ROS ROS ED ROS Narrative Constitutional: No fever, no chills. HEENT: No sore throat. No neck pain. No loss of vision. No rhinorrhea. Cardiovascular: No chest pain. No palpitations. No pedal edema. Respiratory: No cough, positive shortness of breath with reported low pulse ox. Abdominal: No abdominal pain. No nausea. No vomiting. Genitourinary: No dysuria. No hematuria. Musculoskeletal: No myalgias. No arthralgias. Neurologic: Positive headache, states does not feel right in the head. No dizziness. Positive lightheadedness. No paresthesias. Skin: No rash. No change in color. Psychiatric: No depression. No anxiety. EXAM Physical Exam Narrative Exam Narrative: Afebrile. Vital signs noted. Intermittent tachycardia. Lungs clear to auscultation bilaterally without wheezing, perhaps slightly prolonged expiratory phase. Abdomen soft nontender with normal active bowel sounds. Neurological examination nonfocal and nonlateralizing. HEENT examination reveals PERRL EOMI. Head is normocephalic and atraumatic. No noted pedal edema. Const Vital Signs: 11/22/23 20:01 Temperature 98.3 F Temperature Source Oral Pulse Rate 106 H Respiratory Rate 20 H Blood Pressure 156/67 H Blood Pressure Mean 96 Pulse Ox 97 Oxygen Delivery Method Room Air MDM MDM MDM Narrative Medical decision making narrative: Differential diagnosis includes but not limited to atypical chest pain/ACS versus intracranial hemorrhage versus migraine headache versus asthma exacerbation versus pneumonia versus pneumothorax. History and physical does not support pneumonia or pneumothorax as she does not have fever or cough. Hence I have low suspicion for COVID as well. Her pulse ox here is 95 to 96% on room air without evidence of hypoxia. I do not feel that she merits another breathing treatment currently. I do feel that she requires imaging of the brain to rule out an acute hemorrhage. Single troponin will be obtained to rule out ACS as her symptoms have been ongoing for greater than 6 hours. Differential diagnosis also includes dehydration versus intravascular volume depletion as she states that she is lightheaded and has a headache as well. EKG was obtained and interpreted by myself independently as sinus tachycardia at 101 bpm without ectopy or acute ST changes. No STEMI. No significant change from EKG dated June 25, 2019 except she had a heart rate of 97 bpm at that time. I reviewed her laboratory work and she has slightly elevated white count of 13.1 which I think is nonspecific, hemoglobin 13.1 with hematocrit 40.7, platelet count normal at 316. Sodium normal at 138 with potassium normal 3.6, chloride 105, BUN is slightly elevated at 20 with normal creatinine of 0.92. She was bolused 500 mL of normal saline. Alk phos is slightly elevated at 134 which I think is nonspecific. High-sensitivity troponin is 6. Once again, feel she has been ruled out with a single biomarker and normal EKG/unchanged EKG. She is additionally is not having chest pain. I reviewed the radiology report of the CT of the brain and shows no acute process. Chest x-ray in 1 view interpreted by myself shows no pneumonia or pneumothorax. I reviewed the radiology report which confirms my independent interpretation. At this point in time, she will be given Toradol for her headache which she has received in the past. I feel she can be discharged safely home with follow-up. Her pulse ox has remained at 95% on room air or above. As she was more concerned about her consistently low pulse ox, she will continue her aerosolized treatments at home every 4-6 hours as needed and follow-up with her orchardist/nurse practitioner. I also discu ssed the use of steroids with her such as prednisone, but she declined stating that she was on steroids for 35 years and prefers not to take them. I find this reasonable. At this point in time, I do not feel that she is meeting any observation or admission criteria. Return instructions to the emergency department were reviewed. Disposition is discharged home in stable condition. History & Record Review Discussion w/independent historian: Patient Lab Data Attestation: I reviewed the patient's lab results. Labs: Laboratory Results - last 24 hr 11/22/23 20:30 WBC 13.1 H RBC 4.57 Hgb 13.1 Hct 40.7 MCV 89.1 MCH 28.7 MCHC 32.2 RDW Std Deviation 46.2 H RDW Coeff of [place] 14.3 Plt Count 316 MPV 9.8 Immature Gran % (Auto) 0.500 Neut % (Auto) 65.4 Lymph % (Auto) 28.2 [place] % (Auto) 5.6 Eos % (Auto) 0.0 Baso % (Auto) 0.3 Absolute Neuts (auto) 8.6 H Absolute Lymphs (auto) 3.69 Nucleated RBC % 0 Sodium 138 Potassium 3.6 Chloride 105 Carbon Dioxide 24.0 Anion Gap 9 BUN 20 H Creatinine 0.92 Estim Creat Clear Calc 62.33 Est GFR (MDRD) Af Amer 78 Est GFR (MDRD) Non-Af 65 BUN/Creatinine Ratio 21.7 H Glucose 124 H Calcium 9.4 Total Bilirubin 0.20 AST 26 ALT 26 Alkaline Phosphatase 134 H Troponin I High Sens 6 Total Protein 7.7 Albumin 3.5 Globulin 4.2 Albumin/Globulin Ratio 0.8 L Radiography Diagnostic Testing: Clinical Impression(s) from Imaging Studies Brain CT 11/22/23 20:20 IMPRESSION: No acute intracranial findings. Electronically Signed: Myron Mcintyre MD at 21:32 EDT , Chest X-Ray 11/22/23 20:45 IMPRESSION: No radiographic evidence of acute cardiopulmonary disease. Electronically Signed: Myron Mcintyre MD at 21:34 EDT , Discharge Plan Triage Chief Complaint: Headache ED Provider: Mina Silveira Dx/Rx/DC Orders Clinical Impression: Headache, Fullness in head, SOB (shortness of breath) Instructions: ED Asthma, Acute (Adult), ED Headache Unspecified Prescriptions: No Action albuterol sulfate 2.5 mg /3 mL (0.083 %) solution for nebulization 2.5 mg inhalation Q4H PRN (Reason: Sob &/Or Wheezing) Qty: 180 6RF metformin 500 mg tablet 500 mg PO BID (DME) Handicap Placcard See Rx Instructions .ROUTE .MEDSUPPLY Qty: 1 0RF Rx Instructions: Length of Time: 99 months albuterol sulfate [Ventolin HFA] 90 mcg/actuation HFA aerosol inhaler 2 puff INHALATION Q4H PRN (Reason: shortness of breath or wheezing) Qty: 1 6RF cetirizine 10 mg capsule 10 mg PO HS Qty: 90 3RF montelukast 10 mg tablet 10 mg PO QPM Qty: 90 3RF simvastatin 40 MG tablet 40 mg PO QHS hydrochlorothiazide 25 MG tablet 12.5 mg PO DAILY pantoprazole 40 mg tablet,delayed release (DR/EC) 40 mg PO BID lisinopril 10 MG tablet 10 mg PO QHS amitriptyline 50 MG tablet 50 mg PO QHS (DME) nebulizers Mis See Rx Instructions .ROUTE .MEDSUPPLY Qty: 1 0RF Rx Instructions: As directed Fasenra 30 mg/mL syringe 30 mg SC Q8W Qty: 1 7RF Primary Care Provider: Elin Dickson Referrals: Ayush Leblanc DO [Med Staff - Active Staff] - 3-5 Days if not improving Elin Dickson DO [Primary Care Provider] - 3-5 Days if not improving Activity Restrictions/Additional Instructions: Return with increased difficulty breathing, new or worsening symptoms. Use your aerosolized treatments every 6 hours as needed for breathing difficulty. Return with consistently low pulse ox below 90%. Print Language: Paraguayan Disposition Disposition: Home, Self Care
[2023-11-22] MEDS: 0.9% Normal Saline (500mL Bag) 500 ML 999 ML IV (20:37)
[2023-11-22 20:44] LABS: Absolute Lymphocyte Count 3.69 X10^3/uL (0.83-4.51); Absolute Neutrophil Count 8.6 X10^3/uL (2.0-7.7); Basophil# 0.04 X10^3/uL; Basophil% 0.3 % (0-1); Hematocrit 40.7 % (37-47); Hemoglobin 13.1 g/dL (12.0-15.0); Lymphocyte # 3.69 X10^3/ul (0.83-4.51); Lymphocyte % 28.2 % (19-41); Mean Corp Hgb Conc 32.2 g/dL (32-36); Mean Corpuscular Hgb 28.7 pg (27.0-32.0); Mean Corpuscular Volume 89.1 fL (81-99); Mean Platelet Vol. 9.8 fl (6.2-12.0); Monocyte# 0.73 X10^3/uL; Monocyte% 5.6 % (0-10); NRBC Flagged by Analyzer 0 % (0-5); Neutrophil # 8.55 X10^3/uL (2.7-7.7); Neutrophil % 65.4 % (47-70); Platelet Count 316 K/mm3 (150-450); RBC Distribution Width CV 14.3 % (11.6-14.6); RBC Distribution Width SD 46.2 fl (35.1-43.9); Red Blood Count 4.57 M/mm3 (4.2-5.4); White Blood Count 13.1 K/mm3 (4.4-11.0)
--- NOTE | 2023-11-22 20:45 | RAD_ITS ---
INDICATION: Shortness of breath EXAMINATION/TECHNIQUE: X-RAY - portable upright AP chest x-ray COMPARISON: 06/25/2019 FINDINGS: LINES/DEVICES: None. LUNGS: No consolidation, edema or effusion. No pneumothorax. MEDIASTINUM AND CARDIOVASCULAR STRUCTURES: Cardiac silhouette not enlarged. Central airways and mediastinal contour are unremarkable. BONES AND SOFT TISSUES: No acute changes. RAD/Chest 1 View (Portable) IMPRESSION: No radiographic evidence of acute cardiopulmonary disease. Electronically Signed: Myron Mcintyre MD at 21:34 EDT ,
[2023-11-22 20:59] LABS: ALB/GLOB Ratio 0.8 RATIO (0.9-2.4); AST(SGOT) 26 U/L (15-37); Alanine Aminotransfer ALT/SGPT 26 U/L (13-56); Albumin, Serum 3.5 g/dL (3.2-5.0); Alkaline Phosphatase 134 U/L (45-117); Anion Gap 9 (5-15); BUN 20 mg/dL (7-18); BUN/Creat Ratio 21.7 RATIO (10-20); Calcium,Total 9.4 mg/dL (8.5-10.1); Chloride 105 mmol/L (98-107); Creatinine, Serum 0.92 mg/dL (0.55-1.02); EST Glomerular Filtration Rate 65 mL/min (>60); Est Glom Filt Rate - Afr Amer 78 mL/min (>60); Estimated Creatinine Clearance 62.33 ml/min; Globulin 4.2 g/dL (2.2-4.2); Glucose 124 mg/dL (74-106); Potassium 3.6 mmol/L (3.5-5.1); Protein, Total 7.7 g/dL (6.4-8.2); Sodium Level 138 mmol/L (136-145); Troponin-I HS 6 pg/mL (3.0-54.0)
[2023-11-22 21:46] LABS: Color, Urine Yellow (Yellow); Glucose, Dipstick Normal (Normal); Ketone-Dipstick Negative (Negative); Leukocyte Esterase-Dipstick 100 /ul (Negative); Mucous, Urine 0 SEEN /hpf (<or=2+); Nitrite-Dipstick Positive (Negative); Occult Blood-Urine 10 /ul (Negative); Protein-Dipstick 15 mg/dl (Negative); Urine Bilirubin Dipstick Negative (Negative); Urine Clarity Cloudy (Clear); Urine Urobilinogen Normal (Normal)
[2023-11-22 21:55] LABS: Bacteria 3+ /hpf (None Seen)
[2023-11-22 21:57] LABS: Squamous Epithelial Cells - UA 10-25 SEEN /hpf (5-10)
[2023-11-22 21:58] LABS: White Blood Cells 25-50 SEEN /hpf (0-5)
[2023-11-22 21:59] LABS: Red Blood Cells-Urine 0-5 SEEN /hpf (0-5)
[2023-11-22 22:00] VITALS: BP 119/77; PULSE 100; RESP 17; O2SAT 98
[2023-11-22] MEDS: Ketorolac 30 MG/ML Syringe IV (22:00)
[2023-11-22 22:09] VITALS: BP 119/77; PULSE 100; RESP 18; TEMP 36.8; O2SAT 98
== END 2023-11-22 22:10 | disposition home or self-care (01) ==
PROVIDERS: Emergency Provider Emergency Medicine; PCP Internal Medicine; Visit Provider Emergency Medicine
DX: R51.9 Headache, unspecified (principal); J44.9 Chronic obstructive pulmonary disease, unspecified; E11.9 Type 2 diabetes mellitus without complications; I25.10 Atherosclerotic heart disease of native coronary artery without angina pectoris; Z86.16 Personal history of COVID-19; Z86.73 Personal history of transient ischemic attack (TIA), and cerebral infarction without residual deficits
CPT/HCPCS: 70450; 71045; 80053; 81001; 84484; 85025; 93005; 96361; 96374; 99284; J7040; A4216

== ENCOUNTER → 2024-01-21 | Outpatient (CLI) | payer MEDICARE, SELFPAY ==
--- NOTE | 2024-01-21 12:46 | US_ITS ---
STUDY: RENAL ULTRASOUND - COMPLETE REASON FOR EXAM: Female, 68 years old. UTI TECHNIQUE: Ultrasound evaluation of the kidneys was performed with real-time and static sanchez-scale imaging. COMPARISON: None. FINDINGS: RIGHT KIDNEY: Normal location of the right kidney, which is normal in size. The right kidney measures 11.2 cm. There is a normal cortex of the right kidney. The renal cortex measures 1.4 cm. There is no right renal mass or cyst. There are no right renal calculi. There is no right hydronephrosis. DISTAL RIGHT URETER: There is non-visualization of the distal right ureter. There is no demonstrated right ureterovesical junction calculus. There is a visualized right ureteral jet. LEFT KIDNEY: Normal location of the left kidney, which is normal in size. The left kidney measures 11.0 cm. There is a normal cortex of the left kidney. The renal cortex measures 1.7 cm. There is no left renal mass or cyst. There are no left renal calculi. There is no left hydronephrosis. DISTAL LEFT URETER: There is non-visualization of the distal left ureter. There is no demonstrated left ureterovesical junction calculus. There is a visualized left ureteral jet. BLADDER: The distended urinary bladder has a volume of 262 ml. The empty urinary bladder has a volume of 52 ml. There is a normal wall thickness of the distended urinary bladder. There is no demonstrated mass within the urinary bladder. There are no demonstrated bladder calculi. US/Kidney and Bladder IMPRESSION: Normal ultrasound of the kidneys and urinary bladder. Electronically Signed: Mansoor Oliveira MD at 10:32 EST ,
== END | disposition home or self-care (01) ==
PROVIDERS: PCP Internal Medicine; Referring Provider Urology; Visit Provider Urology
DX: N39.0 Urinary tract infection, site not specified (principal)
CPT/HCPCS: 76770

== ENCOUNTER 2024-04-26 18:55 | Emergency (ER) | payer MEDICARE, SELFPAY ==
[2024-04-26 18:56] VITALS: BP 141/88; PULSE 105; RESP 18; TEMP 36.6; O2SAT 100; BMI 32.0
[2024-04-26 19:24] LABS: Absolute Lymphocyte Count 3.73 X10^3/uL (0.83-4.51); Absolute Neutrophil Count 12.3 X10^3/uL (2.0-7.7); Basophil# 0.04 X10^3/uL; Basophil% 0.2 % (0-1); Hematocrit 48.2 % (37-47); Lymphocyte # 3.73 X10^3/ul (0.83-4.51); Lymphocyte % 22.1 % (19-41); Mean Corp Hgb Conc 33.2 g/dL (32-36); Mean Corpuscular Hgb 28.5 pg (27.0-32.0); Mean Corpuscular Volume 85.8 fL (81-99); Mean Platelet Vol. 9.5 fl (6.2-12.0); Monocyte# 0.71 X10^3/uL; Monocyte% 4.2 % (0-10); NRBC Flagged by Analyzer 0 % (0-5); Neutrophil # 12.32 X10^3/uL (2.7-7.7); Platelet Count 404 K/mm3 (150-450); RBC Distribution Width CV 13.7 % (11.6-14.6); RBC Distribution Width SD 43.1 fl (35.1-43.9); Red Blood Count 5.62 M/mm3 (4.2-5.4); White Blood Count 16.9 K/mm3 (4.4-11.0)
[2024-04-26 20:00] VITALS: BP 133/57; PULSE 98; RESP 18; O2SAT 97
--- NOTE | 2024-04-26 20:36 | US_ITS ---
PROCEDURE: Right upper quadrant ultrasound REASON FOR EXAM: PAIN COMPARISON: None FINDINGS: Liver: Diffuse increased hepatic echogenicity most consistent with steatosis. Gallbladder: No stones, sludge, wall thickening or tenderness. Common bile duct: Normal measuring 5 mm. Pancreas: Tiny cyst measuring 8 mm. Trace perihepatic ascites. US/Gallbladder IMPRESSION: Hepatic steatosis. Trace perihepatic ascites. Reading Location: [facility]
[2024-04-26] MEDS: Ondansetron 4 MG/2 ML Vial IV (20:45)
[2024-04-26] MEDS: Morphine 4 MG/ML Syringe IV (20:45)
[2024-04-26] MEDS: 0.9% Normal Saline (1000mL) 1,000 ML 999 ML IV (20:45)
--- NOTE | 2024-04-26 21:08 | ED.VIS.GI ---
HPI HPI - GI History of Present Illness Chief Complaint: Abd Pain Informant: patient Narrative Narrative: Worsening upper abdominal pain since 4 PM. Nausea vomiting x 2. Having chills. No history of similar. No abdominal surgeries. Ate turkey sandwich at noon and there is no cheese or [place]. No history of similar. Denies any similar pain. Lower lumbar surgery in the past hypertension and irritable bowel syndrome. Diabetes with hyperlipidemia. severe asthma history. No anticoagulation medications. 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 Back pain, sacroiliac Asthma Home Medications ?Medication ?Instructions ?Recorded ?Last Taken ?Type hydrochlorothiazide 25 mg tablet 12.5 mg PO DAILY diuretic/water 11/05/15 10/05/20 History pill simvastatin 40 mg tablet 40 mg PO QHS cholesterol 11/05/15 10/04/20 History lisinopril 10 mg tablet 10 mg PO QHS blood pressure 07/09/17 10/04/20 History albuterol sulfate 2.5 mg/3 mL 2.5 mg (3 mL) inhalation Q4H PRN 04/21/19 Unknown Rx (0.083 %) solution for nebulization Sob &/Or Wheezing #180 vials nebulizers #1 ea 04/02/20 Unknown Rx metformin 500 mg tablet 500 mg PO BID 08/07/20 10/05/20 History Handicap Placcard #1 ea 02/04/22 Unknown Rx Fasenra 30 mg/mL subcutaneous 30 mg subcut Q8W #1 mL 01/14/23 Unknown Rx syringe (benralizumab) albuterol sulfate 90 mcg/actuation 2 puff inhalation Q4H PRN 02/18/23 Unknown Rx aerosol inhaler (Ventolin HFA) shortness of breath or wheezing #1 device montelukast 10 mg tablet 10 mg PO QPM #90 tabs 08/26/23 Unknown Rx amitriptyline 25 mg tablet 25 mg PO QHS esophageal spasm #90 03/01/24 Unknown Rx tabs cetirizine 10 mg capsule 10 mg PO QHS 04/26/24 Unknown History fluconazole 150 mg tablet 150 mg PO QWEEK PRN yeast #2 tabs 04/26/24 Unknown Rx ondansetron 4 mg disintegrating 4 mg PO Q8H PRN PRN Nausea #10 tabs 04/26/24 Unknown Rx tablet pantoprazole 40 mg tablet,delayed 40 mg PO DAILY 04/26/24 Unknown History release sucralfate 1 gram tablet (Carafate) 1 g PO Q6H #60 tabs 04/26/24 Unknown Rx Allergy/AdvReac Type Severity Reaction Status Date / Time buprenorphine (From Butrans) Allergy Mild Hives Verified 04/26/24 18:56 terbinafine Allergy Mild Rash Verified 04/26/24 18:56 codeine Allergy Unknown Verified 04/26/24 18:56 nortriptyline AdvReac Mild Upset Verified 04/26/24 18:56 Stomach omeprazole AdvReac Mild Diarrhea Verified 04/26/24 18:56 Penicillins AdvReac Mild yeast Verified 04/26/24 18:56 infection naproxen (From Naprosyn) AdvReac gi upset Verified 04/26/24 18:56 nortriptyline HCl (From AdvReac Upset Verified 04/26/24 18:56 Pamelor) Stomach Family History Mother Anxiety Hypertension kidney/renal disease High cholesterol Brother Heart disease Cancer Bladder Cancer CAD (coronary artery disease) Father Heart disease Myocardial infarction, Onset Age: 43 CAD (coronary artery disease) Brother CAD (coronary artery disease) Surgical History History of left heart catheterization (05/27/07) History of back surgery History of tubal ligation History of tonsillectomy History of hysterectomy History of D&C History of right breast biopsy Social History household members: spouse Smoking Status: Never smoker second hand exposure: No alcohol intake: never substance use type: does not use caffeine: No what type of physical activity do you participate in: none ROS ROS ED Constitutional Constitutional ED: Reports chills; Denies fever(s) or sweats ENT ENT ED: Denies sore throat Cardiovascular Cardiovascular: Denies chest pain, leg edema, palpitations or racing heartbeat Respiratory/Chest Respiratory/Chest: Denies cough, dyspnea or dyspnea on exertion Gastrointestinal Gastrointestinal: Reports abdominal pain, nausea and vomiting; Denies diarrhea Genitourinary Genitourinary ED: Denies dysuria, hematuria or urinary frequency Musculoskeletal Musculoskeletal: Denies back pain, extremity pain or neck pain Integumentary Denies rash or wounds Neurologic Neurologic: Denies headache(s), paresthesias or weakness EXAM Physical Exam Const Vital Signs: 04/26/24 18:56 04/26/24 20:00 04/26/24 22:00 Temperature 98 F Temperature Source Temporal Pulse Rate 105 H 98 85 Respiratory Rate 18 18 18 Blood Pressure 141/88 H 133/57 H 125/48 H Blood Pressure Mean 105 82 73 Pulse Ox 100 97 94 Oxygen Delivery Method Room Air Room Air Room Air Positive well nourished and well developed Constitutional Narrative: Uncomfortable, nontoxic General Appearance ED: well developed HEENT Reports moist mucous membranes normocephalic and atraumatic Eyes General Eye ED: Yes normal appearance of both eyes Neck full ROM Chest Wall Chest: Negative for tenderness Resp normal respiratory effort and normal air movement Effort and Inspection: symmetric chest movement; Negative for respiratory distress Cardio regular rate, regular rhythm and no murmurs Peripheral Pulses: pulses 2+ throughout GI normal to inspection, nondistended, normoactive bowel sounds GI Narrative: Pain epigastrium and mild right upper quadrant. Negative McBurney's. Palpation: Negative for guarding or rebound tenderness present Extremity normal to inspection General Extremety ED: Negative for edema or tenderness General Extremity: Negative for edema Neuro oriented x3 and no sensory deficits noted Sensorium / Orientation: awake and alert Skin no rashes or lesions noted and no wounds MDM MDM MDM Narrative Medical decision making narrative: Interventions / MDM: Differential diagnosis: Gastritis, UTI Diagnosis considered but do not suspect: Cholecystitis however ultrasound normal no significant right upper quadrant pain. My EKG interpretation: N/A Imaging independently reviewed and interpreted by myself: Gallbladder ultrasound normal gallbladder structures. Fatty liver noted. External documents reviewed: N/A Test considered but not ordered:N/A ED course: Worsening epigastric pain mild pain right upper quadrant last meal at noon. No history of similar. Abdominal labs ordered. Morphine Zofran fluids. Right upper quadrant ultrasound for further evaluation. 2224: Ultrasound gallbladder normal. Fatty liver noted. White count 16.9. Normal lipase normal liver enzymes normal renal function. Clinically feeling better states intermittent waves of pain in epigastrium. Will treat with GI cocktail. Will reevaluate. 2299: Symptoms proved with GI cocktail. She is on pantoprazole states follows Dr. Tamayo's office recently had her pantoprazole decreased to 20 mg. She still has 40 mg at home which she will up. I will add Carafate. She will monitor for black or bloody stools. Her urine was significant for findings of infection. Urine culture sent. She currently asymptomatic however per record she had similar labs past October and November with infection. She has antibiotics at home with cephalexin for her UTI from her PCP. She will take this twice a day for next 7 days. Will write for Diflucan for possible yeast infections occur with her antibiotics. She will follow with Dr. Tamayo and her PCP. All questions were answered. Re-evaluation: stable Disposition discussed with patient/family/significant other: Patient Case discussed with consulting clinician: N/A This note was generated with Oyokey dictation software. It may contain incorrect words, spelling, and punctuation that were not noted in checking the note before signing. Lab Data Attestation: I reviewed the patient's lab results. Labs: Laboratory Results - last 24 hr 04/26/24 04/26/24 04/26/24 19:15 20:39 21:40 WBC 16.9 H RBC 5.62 H Hgb 16.0 H Hct 48.2 H MCV 85.8 MCH 28.5 MCHC 33.2 RDW Std Deviation 43.1 RDW Coeff of Mar[place] 13.7 Plt Count 404 MPV 9.5 Immature Gran % (Auto) 0.500 Neut % (Auto) 73.0 H Lymph % (Auto) 22.1 [place] % (Auto) 4.2 Eos % (Auto) 0.0 Baso % (Auto) 0.2 Absolute Neuts (auto) 12.3 H Absolute Lymphs (auto) 3.73 Nucleated RBC % 0 Sodium Cancelled 138 Potassium Cancelled 3.8 Chloride Cancelled 100 Carbon Dioxide Cancelled 23.3 Anion Gap Cancelled 14 BUN Cancelled 17 Creatinine Cancelled 0.98 Estim Creat Clear Calc Cancelled 58.62 Est GFR (MDRD) Non-Af Cancelled 63 BUN/Creatinine Ratio Cancelled 17.7 Glucose Cancelled 159 H Calcium Cancelled 9.6 Total Bilirubin Cancelled 0.38 AST Cancelled 21 ALT Cancelled 15 Alkaline Phosphatase Cancelled 129 H Total Protein Cancelled 7.5 Albumin Cancelled 4.0 Globulin Cancelled 3.5 Albumin/Globulin Ratio Cancelled 1.1 Lipase Cancelled 19 Urine Color Yellow Urine Clarity Cloudy Urine pH 6.0 Ur Specific [place] 1.020 Urine Protein 15 H Urine Glucose (UA) Normal Urine Ketones 15 H Urine Occult Blood 10 H Urine Nitrite Positive H Urine Bilirubin Negative Urine Urobilinogen Normal Ur Leukocyte Esterase 100 H Urine RBC 0-5 SEEN Urine WBC 25-50 SEEN Ur Squamous Epith Cells 0-5 SEEN Urine Bacteria 4+ Urine Mucus 0 SEEN Radiography Diagnostic Testing: Clinical Impression(s) from Imaging Studies Gallbladder Ultrasound 04/26/24 20:36 IMPRESSION: Hepatic steatosis. Trace perihepatic ascites. Reading [facility] Triage Chief Complaint: Abd Pain ED Provider: Bruno Rae Dx/Rx/DC Orders Clinical Impression: Gastritis, Vomiting, Acute UTI Instructions: Urinary Tract Infections in Women, ED Gastritis (Adult) Prescriptions: New sucralfate [Carafate] 1 gram tablet 1 g PO Q6H Qty: 60 0RF ondansetron 4 mg tablet,disintegrating 4 mg PO Q8H PRN PRN (Reason: Nausea) Qty: 10 0RF fluconazole 150 mg tablet 150 mg PO QWEEK PRN (Reason: yeast) Qty: 2 0RF No Action albuterol sulfate 2.5 mg /3 mL (0.083 %) solution for nebulization 2.5 mg inhalation Q4H PRN (Reason: Sob &/Or Wheezing) Qty: 180 6RF metformin 500 mg tablet 500 mg PO BID (DME) Handicap Placcard See Rx Instructions .ROUTE .MEDSUPPLY Qty: 1 0RF Rx Instructions: Length of Time: 99 months albuterol sulfate [Ventolin HFA] 90 mcg/actuation HFA aerosol inhaler 2 puff INHALATION Q4H PRN (Reason: shortness of breath or wheezing) Qty: 1 6RF montelukast 10 mg tablet 10 mg PO QPM Qty: 90 3RF amitriptyline 25 mg tablet 25 mg PO QHS Qty: 90 1RF simvastatin 40 MG tablet 40 mg PO QHS hydrochlorothiazide 25 MG tablet 12.5 mg PO DAILY lisinopril 10 MG tablet 10 mg PO QHS pantoprazole 40 mg tablet,delayed release (DR/EC) 40 mg PO DAILY cetirizine 10 mg capsule 10 mg PO QHS (DME) nebulizers Misc See Rx Instructions .ROUTE .MEDSUPPLY Qty: 1 0RF Rx Instructions: As directed Fasenra 30 mg/mL syringe 30 mg SC Q8W Qty: 1 7RF Primary Care Provider: Elin Dickson Referrals: Elin Dickson DO [Primary Care Provider] - 1-2 Weeks Karl Tamayo DO [Med Staff - Active Staff] - 1-2 Weeks Activity Restrictions/Additional Instructions: Gallbladder ultrasound with normal gallbladder structures. Fatty liver noted. Normal pancreas and liver enzymes. Go back up with your pantoprazole 40 mg. Take Carafate as prescribed. Monitor for black or bloody stools. Follow-up with Dr. Tamayo. Urine notes infection culture sent. Take your home antibiotic twice a day for the next 7 days. Use Diflucan as needed. Print Language: [place] Disposition Disposition: Home, Self Care
[2024-04-26 21:28] LABS: ALB/GLOB Ratio 1.1 RATIO (0.9-2.4); AST(SGOT) 21 U/L (<=31); Alanine Aminotransfer ALT/SGPT 15 U/L (<=34); Alkaline Phosphatase 129 U/L (35-104); Anion Gap 14 (5-15); BUN 17 mg/dL (4-19); BUN/Creat Ratio 17.7 RATIO (10-20); Calcium,Total 9.6 mg/dL (7.6-11.0); Carbon Dioxide 23.3 mmol/L (21.0-32.0); Chloride 100 mmol/L (98-108); Creatinine, Serum 0.98 mg/dL (0.70-1.20); EST Glomerular Filtration Rate 63 (>60); Estimated Creatinine Clearance 58.62 ml/min (50-250); Globulin 3.5 g/dL (2.2-4.2); Glucose 159 mg/dL (70-99); Lipase 19 U/L (13-75); Potassium 3.8 mmol/L (3.3-5.1); Protein, Total 7.5 g/dL (5.9-8.4); Sodium Level 138 mmol/L (133-145); Total Bilirubin 0.38 mg/dL (0.00-1.30)
[2024-04-26 21:45] LABS: Mucous, Urine 0 SEEN /hpf (<or=2+)
[2024-04-26 22:00] VITALS: BP 125/48; PULSE 85; RESP 18; O2SAT 94
[2024-04-26 22:24] LABS: Color, Urine Yellow (Yellow); Glucose, Dipstick Normal (Normal); Ketone-Dipstick 15 mg/dl (Negative); Leukocyte Esterase-Dipstick 100 /ul (Negative); Nitrite-Dipstick Positive (Negative); Occult Blood-Urine 10 /ul (Negative); Protein-Dipstick 15 mg/dl (Negative); Urine Bilirubin Dipstick Negative (Negative); Urine Clarity Cloudy (Clear); Urine Urobilinogen Normal (Normal)
[2024-04-26 22:25] LABS: White Blood Cells 25-50 SEEN /hpf (0-5)
[2024-04-26 22:26] LABS: Bacteria 4+ /hpf (None Seen); Red Blood Cells-Urine 0-5 SEEN /hpf (0-5); Squamous Epithelial Cells - UA 0-5 SEEN /hpf (5-10)
[2024-04-26] MEDS: Lidocaine 2% Viscous15 ML UDC 15 ML PO (22:29)
[2024-04-26] MEDS: Mag Hydrox/Al Hydrox/Simeth 30 ML UDC PO (22:29)
[2024-04-26 23:00] VITALS: BP 128/41; PULSE 86; RESP 18; TEMP 36.7; O2SAT 95
== END 2024-04-26 23:07 | disposition home or self-care (01) ==
PROVIDERS: Emergency Provider Emergency Medicine; PCP Internal Medicine; Visit Provider Emergency Medicine
DX: K29.70 Gastritis, unspecified, without bleeding (principal); J44.9 Chronic obstructive pulmonary disease, unspecified; E11.9 Type 2 diabetes mellitus without complications; N39.0 Urinary tract infection, site not specified; I25.10 Atherosclerotic heart disease of native coronary artery without angina pectoris; E78.5 Hyperlipidemia, unspecified; K58.9 Irritable bowel syndrome, unspecified; I10 Essential (primary) hypertension; Z79.51 Long term (current) use of inhaled steroids; Z79.84 Long term (current) use of oral hypoglycemic drugs; Z86.73 Personal history of transient ischemic attack (TIA), and cerebral infarction without residual deficits; Z86.16 Personal history of COVID-19
CPT/HCPCS: 76705; 80053; 81001; 83690; 85025; 87086; 87088; 87186; 96361; 96374; 96375; 96376; 99284; A4216; J2405

== ENCOUNTER → 2024-11-29 | Outpatient (CLI) | payer MEDICARE, SELFPAY ==
[2024-11-29 12:31] LABS: Hematocrit 42.5 % (37-47); Hemoglobin 13.4 g/dL (12.0-15.0); Immature Granulocytes Count 0.020 X10^3/uL (0.0-0.0); Mean Corp Hgb Conc 31.5 g/dL (32-36); Mean Corpuscular Volume 87.8 fL (81-99); Mean Platelet Vol. 9.9 fl (6.2-12.0); NRBC Flagged by Analyzer 0 % (0-5); Platelet Count 337 K/mm3 (150-450); RBC Distribution Width CV 14.1 % (11.6-14.6); RBC Distribution Width SD 45.6 fl (35.1-43.9); Red Blood Count 4.84 M/mm3 (4.2-5.4); White Blood Count 9.1 K/mm3 (4.4-11.0)
[2024-11-29 12:39] LABS: Microalbumin,Random Urine < 12.0 mg/L (<20 mg/L)
[2024-11-29 13:34] LABS: AST(SGOT) 21 U/L (<=31); Alanine Aminotransfer ALT/SGPT 16 U/L (<=34); Albumin, Serum 4.1 g/dL (3.4-4.8); Alkaline Phosphatase 137 U/L (35-104); Anion Gap 11 (5-15); BUN 17 mg/dL (4-19); BUN/Creat Ratio 18.8 RATIO (10-20); Calcium,Total 9.9 mg/dL (7.6-11.0); Carbon Dioxide 26.4 mmol/L (21.0-32.0); Chloride 102 mmol/L (98-108); Cholesterol 175 mg/dL (<=200); Ferritin 85 ng/mL (22-378); Globulin 3.8 g/dL (2.2-4.2); Glucose 107 mg/dL (70-99); Low Density Lipoprotein Calc. 92 mg/dL; Potassium 4.4 mmol/L (3.3-5.1); Triglycerides 170 mg/dL; Very Low Density Lipoprotein 34 mg/dL (5-40); Vitamin B12 333 pg/mL (180-914); Vitamin D,25 Hydroxy 62.3 ng/mL (30-100); cholesterol:hdl ratio screen 3.55
== END | disposition home or self-care (01) ==
LOC: VSLAB 10:05
PROVIDERS: PCP Family Medicine; Visit Provider Family Medicine
DX: E11.9 Type 2 diabetes mellitus without complications (principal); I10 Essential (primary) hypertension; K21.9 Gastro-esophageal reflux disease without esophagitis; E78.2 Mixed hyperlipidemia
CPT/HCPCS: 36415; 80053; 80061; 82043; 82306; 82607; 82728; 83036; 84443; 85025

== ENCOUNTER 2025-02-04 20:12 | Emergency (ER) | payer MEDICARE, SELFPAY ==
[2025-02-04] VITALS (8 sets, daily range): BP systolic 133–168; BP diastolic 61–89; PULSE 114–142; RESP 16–23; TEMP 36.8–37.7; O2SAT 93–98; BMI 31.2
--- NOTE | 2025-02-04 20:32 | EKG12_ITS ---
Test Reason : DYSRHYTHMIA Blood Pressure : */* mmHG Vent. Rate : 124 BPM Atrial Rate : 124 BPM P-R Int : 154 ms QRS Dur : 80 ms QT Int : 302 ms P-R-T Axes : 50 -7 41 degrees QTcB Int : 433 ms Sinus tachycardia Otherwise normal ECG Confirmed by Karthikeyan Chandra ([id number]), [employer] ([id number]) on 02/07/2025 11:19:05 AM Also confirmed by Karthikeyan Chandra ([id number]), [employer] [id number]) on 02/08/2025 10:22:06 AM Referred By: Confirmed By: Karthikeyan Chandra
--- NOTE | 2025-02-04 20:39 | EDS_ITS ---
HPI History of Present Illness Chief Complaint: Headache Detail of Chief Complaint: Dizziness with change in position and elevated blood pressure Informant: patient Onset/Context/Timing Onset: Today (Approximately [id number]) Context: Sudden Onset Timing: Intermittent Quality: Spinning sensation Location: Change in position Current Severity: Mild (Feels nauseous) Maximum Severity: Severe Worsened by: Change in position Relieved by: Feels nauseous afterwards and persists Associated Symptoms Associated Symptoms: HPI narrative Narrative Narrative: Patient is a 69-year-old woman. She has history of [place], GERD, irritable bowel syndrome with diarrhea, osteoarthritis, essential hypertension, hyperlipidemia, type 2 diabetes and asthma. Patient reports compliance with medication. She presents because she called her friend who took her blood pressure was elevated to approximately 180 systolic. She denied any double vision, blurred vision loss of vision with the elevated blood pressure. She denies ringing or ears or decreased hearing. She denies neck pain or neck stiffness. She denies cardiac or respiratory symptoms other than the elevated blood pressure. She does report nausea when she has dizziness which is described as motion. This occurs with change in position. She denies vomiting or diarrhea. She denies black or maroon-colored stool. She denies urologic symptoms. Prior similar symptoms: No Recent Illness/Hospitalization: No PFSH [facility] Medical History GERD (gastroesophageal reflux disease) Osteoarthritis of left hip Osteoarthritis of left knee Left knee pain Left hip pain COPD (chronic obstructive pulmonary disease) Atherosclerosis of coronary artery bypass graft of [place] heart with angina pectoris Excessive sweating History of TIA (transient ischemic attack) (2006) Obesity Type 2 diabetes mellitus COVID-19 virus detected (10/04/20) Essential hypertension Candidiasis of mouth Seasonal allergic rhinitis Exercise-induced bronchospasm Hyperlipidemia 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 Back pain, sacroiliac Asthma Home Medications ?Medication ?Instructions ?Recorded ?Last Taken ?Type albuterol sulfate 2.5 mg/3 mL 2.5 mg (3 mL) inhalation Q4H PRN 04/21/19 Unknown Rx (0.083 %) solution for nebulization Sob &/Or Wheezing #180 vials nebulizers #1 ea 04/02/20 Unknown Rx metformin 500 mg tablet 500 mg PO BID 08/07/2002/04 History Handicap Placcard #1 ea 02/04/22 Unknown Rx albuterol sulfate 90 mcg/actuation 2 puff inhalation Q 4H PRN 02/18/23 Unknown Rx aerosol inhaler (Ventolin HFA) shortness of breath or wheezing #1 device montelukast 10 mg tablet 10 mg PO QPM #90 tabs 02/03/25 Rx amitriptyline 25 mg tablet 25 mg PO QHS esophageal spa sm #90 03/01/24 02/03/25 Rx tabs benralizumab 30 mg/mL subcutaneous 30 mg subcut Q8W #1 mL 06/07/24 Unknown Rx auto-injector (Fasenra Pen) estradiol 0.01% (0.1 mg/gram) 1 appful vaginal 3XW Unknown History vaginal cream oxycodone-acetaminophen 5 mg-325 1 tab PO Q8H PRN pain 4 days #10 02/04/25 Unknown Rx mg tablet (Percocet) tabs Allergy/AdvReac Type Severity Reaction Status Date / Time buprenorphine (From Butrans) Allergy Mild Hives Verified 02/04/25 20:15 terbinafine Allergy Mild Rash Verified 02/04/25 20:15 codeine Allergy Unknown Verified 02/04/25 20:15 nortriptyline AdvReac Mild Upset Verified 02/04/25 20:15 Stomach omeprazole AdvReac Mild Diarrhea Verified 02/04/25 20:15 Penicillins AdvReac Mild yeast Verified 02/04/25 20:15 infection naproxen (From Naprosyn) AdvReac gi upset Verified 02/04/25 20:15 nortriptyline HCl (From AdvReac Upset Verified 02/04/25 20:15 Pamelor) Stomach Family History Mother Anxiety Hypertension kidney/renal disease High cholesterol Brother Heart disease Cancer Bladder Cancer CAD (coronary artery disease) Father Heart disease Myocardial infarction, Onset Age: 43 CAD (coronary artery disease) Brother CAD (coronary artery disease) Surgical History History of left heart catheterization (05/27/07) History of back surgery History of tubal ligation History of tonsillectomy History of hysterectomy History of D&C History of right breast biopsy Social History household members: spouse Smoking Status: Never smoker second hand exposure: No alcohol intake: never substance use type: does not use caffeine: No what type of physical activity do you participate in: none ROS ROS ED Constitutional Constitutional ED: Denies chills, fever(s), subjective, sweats or weight loss Eyes Eyes: Denies blurry vision, change in vision or diplopia ENT ENT ED: Denies ear pain, rhinorrhea or sore throat Cardiovascular Cardiovascular: Denies chest pain or palpitations Respiratory/Chest Respiratory/Chest: Denies cough, dyspnea or dyspnea on exertion Gastrointestinal Gastrointestinal: Reports nausea; Denies abdominal pain, constipation, diarrhea, melena or vomiting Genitourinary Genitourinary ED: Denies dysuria, hematuria or urinary frequency Musculoskeletal Musculoskeletal: Denies arthralgias, back pain, myalgias or neck pain Integumentary Denies rash Neurologic Neurologic: Denies paresthesias or weakness Psychiatric Psychiatric: Denies anxiety or depression Hematologic/Lymphatic Hematologic/Lymphatic: Reports systems reviewed and no addt'l complaints, except as documented EXAM Physical Exam Const Vital Signs: 02/04/25 20:13 02/04/25 20:45 02/04/25 21:12 Temperature 98.2 F Temperature Source Oral Pulse Rate 140 H 126 H Pulse Rate [Lying] 133 H Pulse Rate [Sitting (for 1 minute prior to obtaining)] 126 H Pulse Rate [Standing (for 1 minute prior to obtaining)] 142 H Respiratory Rate 16 18 Blood Pressure 168/85 H 166/85 H Blood Pressure [Lying] 133/86 H Blood Pressure [Sitting (for 1 minute prior to obtaining)] 149/89 H Blood Pressure [Standing (for 1 minute prior to obtaining)] 137/61 H Blood Pressure Mean 112 112 Blood Pressure Mean [Lying] 101 Blood Pressure Mean [Sitting (for 1 minute prior to obtaining)] 109 Blood Pressure Mean [Standing (for 1 minute prior to obtaining)] 86 Pulse Ox 96 93 Oxygen Delivery Method Room Air 02/04/25 22:00 02/04/25 22:22 02/04/25 22:24 Temperature 99.9 F H 99.9 F H Temperature Source Oral Oral Pulse Rate 130 H Pulse Rate [Lying] Pulse Rate [Sitting (for 1 minute prior to obtaining)] Pulse Rate [Standing (for 1 minute prior to obtaining)] Respiratory Rate 23 H Blood Pressure 159/87 H Blood Pressure [Lying] Blood Pressure [Sitting (for 1 minute prior to obtaining)] Blood Pressure [Standing (for 1 minute prior to obtaining)] Blood Pressure Mean 111 Blood Pressure Mean [Lying] Blood Pressure Mean [Sitting (for 1 minute prior to obtaining)] Blood Pressure Mean [Standing (for 1 minute prior to obtaining)] Pulse Ox 94 Oxygen Delivery Method Room Air 02/04/25 23:02 Temperature Temperature Source Pulse Rate 114 H Pulse Rate [Lying] Pulse Rate [Sitting (for 1 minute prior to obtaining)] Pulse Rate [Standing (for 1 minute prior to obtaining)] Respiratory Rate 18 Blood Pressure 157/76 H Blood Pressure [Lying] Blood Pressure [Sitting (for 1 minute prior to obtaining)] Blood Pressure [Standing (for 1 minute prior to obtaining)] Blood Pressure Mean 103 Blood Pressure Mean [Lying] Blood Pressure Mean [Sitting (for 1 minute prior to obtaining)] Blood Pressure Mean [Standing (for 1 minute prior to obtaining)] Pulse Ox 98 Oxygen Delivery Method Room Air Positive well nourished and well developed Constitutional Narrative: Blood pressure is elevated. Patient is tachycardic. Orthostatic vital signs were negative. General Appearance ED: well developed; Negative for cyanotic, diaphoretic or pallor HEENT Reports moist mucous membranes HEENT Narrative: Head is atraumatic normocephalic. Ears normal. Nares patent. External auditory canal normal. TMs are normal. Uvula is midline. There is no deviation of tongue or protrusion. There is no tenderness over the frontal recess maxillary sinuses. Eyes PERRL General Eye ED: Negative for pale conjunctiva or scleral icterus Neck no lymphadenopathy, supple and no JVD Neck Narrative: There is no meningeal findings. Trachea is midline. Resp normal respiratory effort and clear to auscultation bilaterally Cardio regular rhythm, S1 normal heart sound, S2 normal heart sound and no murmurs Rate: tachycardic GI normal to inspection, nondistended, normoactive bowel sounds, non-tender, non- distended and no masses; Negative for hepatosplenomegaly Extremity normal to inspection General Extremety ED: Negative for edema General Extremity: Negative for edema Neuro oriented x3, CN's II-XII intact bilaterally and no sensory deficits noted Neuro Narrative: There is no dysmetria. The eye askew test was negative. Bill-Hallpike maneuver was positive bilaterally. There is no clonus or Babinski sign noted right or left. Sensorium / Orientation: alert Motor Exam: strength 5/5 throughout Psych mental status grossly normal Skin no rashes or lesions noted, no wounds and skin turgor normal General Skin Exam: elasticity normal; Negative for jaundice or pallor MDM MDM MDM Narrative Medical decision making narrative: Patient's symptoms are more consistent with benign paroxysmal positional vertigo. There is no evidence of auditory pathology that would explain this. She has a normal neurologic exam and did not believe this to be central but peripheral vertigo. Because of her rapid heart rate a EKG was obtained. Because she is diabetic and BMP was obtained to assess glucose, CO2 anion gap as well as renal function. CBC to assess white count and H&H. Since she is tachycardic with no good explanation orthostatic vital signs were ordered as well. Once patient receives fluids, Geoffrey will perform Tono maneuver since the Radcliffe-Hallpike maneuver was positive. History & Record Review Additional record(s) reviewed:: Prior outpatient record (Pulmonary visit with Lizzy Cardoza on August 29, 2024. Patient was seen for her chronic asthma. She also has seasonal allergies.), Prior ED visit (Seen by Dr. Bruno Hayes in April 2024 for abdominal pain with nausea and vomiting. Chart was reviewed. Final impression was fatty liver and trace perihepatic ascites.) and Other (External correspondence for pulmonary meds. Outpatient pulmonary visit January 2023 she was seen for her care for severe persistent asthma.) Lab Data Attestation: I reviewed the patient's lab results. Lab results narrative: CBC reveals slightly elevated white count of 13.3 thousand. There is a shift.. Basic metabolic panel shows a glucose of 176 with normal CO2 anion gap. Labs: Laboratory Results - last 24 hr 02/04/25 20:25 WBC 13.3 H RBC 5.25 Hgb 14.4 Hct 44.1 MCV 84.0 MCH 27.4 MCHC 32.7 RDW Std Deviation 42.6 RDW Coeff of [place] 13.9 Plt Count 328 MPV 9.4 Immature Gran % (Auto) 0.400 Neut % (Auto) 90.5 H Lymph % (Auto) 3.9 L [place] % (Auto) 5.0 Eos % (Auto) 0.0 Baso % (Auto) 0.2 Absolute Neuts (auto) 12.1 H Absolute Lymphs (auto) 0.52 L Nucleated RBC % 0 Sodium 135 Potassium 4.3 Chloride 98 Carbon Dioxide 22.0 Anion Gap 15 BUN 10 Creatinine 0.95 Estim Creat Clear Calc 59.75 Est GFR (MDRD) Non-Af 66 BUN/Creatinine Ratio 10.9 Glucose 176 H Calcium 9.6 TSH 0.885 EKG Initial EKG: Attestation: I personally reviewed and interpreted this EKG as follows: Interpretation: Sinus Tachycardia (Rate is 124. EKG is otherwise unremarkable. UT interval is under 54 ms. QS duration 80 ms. QT duration 302 ms. [place] is normal.) Treatment and Re-Evaluation :: After Tono maneuver patient was complaining severe headache. She felt flushed. Repeat temperature is 99.9 which for a 69-year-old is a fever. Anything over 995 is considered a fever. This would explain her tachycardia. Her tachycardia did improve with fluids. She is no longer vertiginous. Suspect she is coming down with a viral symptom. The acuter Luiz helped her aches as well as head ache. Procedures Other Procedures Procedure(s): Tono maneuver was performed. Patient had recurrence of her vert igo with resolution. Total time to perform maneuver was 10 minutes patient feels very warm. She states feels flushed. Will have nurse recheck temperature. Discharge Plan Triage Chief Complaint: Headache Other Complaint: Dizziness ED Provider: Ren Morrison Dx/Rx/DC Orders Clinical Impression: Benign paroxysmal positional vertigo, bilateral, Viral cephalgia, Fever in adult, Systemic viral illness, Type 2 diabetes mellitus, Hyperlipidemia, [place] (nonalcoholic steatohepatitis), Essential hypertension Instructions: ED BPV Vertigo, ED Viral Syndrome (Adult) Prescriptions: New oxycodone-acetaminophen [Percocet] 5-325 mg tablet 1 tab PO Q8H PRN (Reason: pain) 4 Days Qty: 10 0RF No Action albuterol sulfate 2.5 mg /3 mL (0.083 %) solution for nebulization 2.5 mg inhalation Q4H PRN (Reason: Sob &/Or Wheezing) Qty: 180 6RF metformin 500 mg tablet 500 mg PO BID (DME) Handicap Placcard See Rx Instructions .ROUTE .MEDSUPPLY Qty: 1 0RF Rx Instructions: Length of Time: 99 months albuterol sulfate [Ventolin HFA] 90 mcg/actuation HFA aerosol inhaler 2 puff INHALATION Q4H PRN (Reason: shortness of breath or wheezing) Qty: 1 6RF montelukast 10 mg tablet 10 mg PO QPM Qty: 90 3RF estradiol 0.01 % (0.1 mg/gram) cream 1 appful vaginal 3XW amitriptyline 25 mg tablet 25 mg PO QHS Qty: 90 1RF (DME) nebulizers Misc See Rx Instructions .ROUTE .MEDSUPPLY Qty: 1 0RF Rx Instructions: As directed Fasenra Pen 30 mg/mL auto-injector 30 mg subcut Q8W Qty: 1 7RF Primary Care Provider: Ximena Monroe Referrals: Ximena Monroe, DO [Primary Care Provider, Family Practice] - 3-5 Days if not improving Activity Restrictions/Additional Instructions: 1. Drink plenty of fluids the next 3 to 5 days. 2. You may be ill for 3 to 7 days. Print Language: Irish Disposition Disposition: Home, Self Care
[2025-02-04 20:40] LABS: Hematocrit 44.1 % (37-47); Hemoglobin 14.4 g/dL (12.0-15.0); Immature Granulocytes Count 0.050 X10^3/uL (0.0-0.0); Mean Corp Hgb Conc 32.7 g/dL (32-36); Mean Corpuscular Volume 84.0 fL (81-99); Mean Platelet Vol. 9.4 fl (6.2-12.0); NRBC Flagged by Analyzer 0 % (0-5); POSITIVE DIFFERENTIAL YES; Platelet Count 328 K/mm3 (150-450); RBC Distribution Width CV 13.9 % (11.6-14.6); RBC Distribution Width SD 42.6 fl (35.1-43.9); Red Blood Count 5.25 M/mm3 (4.2-5.4); White Blood Count 13.3 K/mm3 (4.4-11.0)
[2025-02-04 21:00] LABS: Anion Gap 15 (5-15); BUN 10 mg/dL (4-19); BUN/Creat Ratio 10.9 RATIO (10-20); Calcium,Total 9.6 mg/dL (7.6-11.0); Carbon Dioxide 22.0 mmol/L (21.0-32.0); Chloride 98 mmol/L (98-108); Estimated Creatinine Clearance 59.75 ml/min (50-250); Glucose 176 mg/dL (70-99); Potassium 4.3 mmol/L (3.3-5.1)
--- OUTSIDE RECORDS SUMMARY | 2025-02-04 21:02 | XMS RPT_ITS | CCD ---
Author Organization [facility] ion [facility] Care Team Providers Care Knee Bolter Name Role Phone York, Chanell L Unavailable Unavailable Yensho OPTIMIZATION SPECIALIST, Raquel A Unavailable Unavailab le Yensho OPTIMIZATION SPECIALIST, Raquel A Unavailable Unavailab le York, Chanell L Unavailable Unavailable York, Chanell L Unavailable Unavailable York, Chanell L Unavailable Unavailable York, Chanell L Unavailable Unavailable Sow OPTIMIZATION SPECIALIST, Chanell Nicky Unavailable Unavaila ble Duller, Chon Christina Unavailable Unavailable Moises Del Rio Unavailable Unavailable Duller, Chon Christina Unavailable Unavailable Moises Del Rio Unavailable Unavailable PRADIPVICENTE Tristan Unavailable Unavailable PRADIPVICENTE Tristan Unavailable Unavailable Moises Del Rio Unavailable Unavailable PRADIPVICENTE ALVARADO Unavailable Unavailable PRADIPVICENTE Tristan Unavailable Unavailable PRADIPVICENTE Tristan Unavailable Unavailable PRADIPVICENTE Tristan Unavailable Unavailable Moises Del Rio Unavailable Unavailable Duller, Chon Christina Unavailable Unavailable Duller, Chon Christina Unavailable Unavailable Moises Del Rio Unavailable Unavailable Duller, Chon Christina Unavailable Unavailable Moises Del Rio Unavailable Unavailable Elin Reynolds Unavailable Aman Amind Unavailable Saravanan Clarke Unavailable Darrick Kramer Unavailable Kerry, Armin Unavailable Ajit Monreal Unavailable Rebecca Pham Unavailable Unavailable Warner Herbert Unavailable Unavailable Amairani Bravo Unavailable Unavailable Unavailable Unavailable York, Chanell L Unavailable Unavailable York, Chanell L Unavailable Unavailable Yessi, Elin Unavailable Sanyurah, Sea Unavailable Saravanan Clarke Unavailable Darrick Kramer Unavailable Armin Payne Unavailable Holly-Takla, Ajit Unavailable Warner Herbert Unavailable Unavailable Tarah Chavez Unavailable Amairani Bravo L Unavailable Unavailable Unavailable Unavailable York, Chanell L Unavailable Unavailable York, Chanell L Unavailable Unavailable York, Chanell L Unavailable Unavailable Sow OPTIMIZATION SPECIALIST, Chanell Nicky Unavailable Unavaila ble Messenger, Rebecca Unavailable Unavailable Slarb, Caterina Unavailable Unavailable Warner Herbert Unavailable Unavailable Sanyurah, Sea A Unavailable Messenger, Rebecca Unavailable Unavailable Amairani Bravo L Unavailable Unavailable Warner Byrd Unavailable Unavailable Yessi DO, Elin Unavailable Sea Amin MD A Unavailable Dr. Saravanan Clarke Unavailable [phone] Darrick Kramer Unavailable Armin Payne Unavailable Holly-Takla, Ajit Unavailable Ankit RN, Rebecca Unavailable Unavailable Carson DEANN, Warner Unavailable Unavailable Gravius MOTOR VEHICLE ESCORT DRIVER, Bhavana Unavailable Unavailable Lawrence BYERS, Amairani L Unavailable Unavailable Unavailable Unavailable John DEANN, Neida Unavailable Unavailable Slarb OPTIMIZATION SPECIALIST, Caterina Unavailable Unavailable Yessi DO, Elin Unavailable [phone] Sea Amin MD A Unavailable Dr. Saravanan Clarke Unavailable [phone] Darrick Kramer Unavailable Armin Payne Unavailable Holly-Takla, Ajit Unavailable [phone] Alayna Kearns MA Unavailable Unavailable Carson DEANN, Warner Unavailable Unavailable Cross OPTIMIZATION SPECIALIST, Neida Unavailable Unavailable Slarb OPTIMIZATION SPECIALIST, Caterina Unavailable Unavailable Lawrence RN, Amairani L Unavailable Unavailable Unavailable Unavailable Elin Reynolds DO Unavailable Martín OPTIMIZATION SPECIALIST, Savi Unavailable Unavailable Tarah Chavez Unavailable Scott, Tarah Unavailable Tory JOSE MARIABhavana Unavailable Unavailable Dr. Elin Reynolds Primary Care Provider Roxanne DISHTANK OPERATOR, DISHTANK OPERATOR-C Roya Attending Provider [phone] Roxanne DISHTANK OPERATOR, DISHTANK OPERATOR-C Roya Referring Provider [phone] Dr. Elin Reynolds Referring Provider Tobi PA, PA Destiny Jeffery Attending Provider Dr. Darrick Kramer Attending Provider Dr. Elin Reynolds Primary Care Provider [phone] Roxanne DISHTANK OPERATOR, DISHTANK OPERATOR-C Roya Attending Provider Roxanne DISHTANK OPERATOR, DISHTANK OPERATOR-C Roya Referring Provider [phone] Dr. Elin Reynolds Referring Provider Dr. Darrick Kramer Referring Provider Elin Reynolds DO Attending Unavailable Elin Reynolds DO Referring Unavailable Elin Reynolds DO Consulting Unavailable Dr. Elin Reynolds Primary Care Provider [phone] Roxanne DISHTANK OPERATOR, DISHTANK OPERATOR-C Roya Attending Provider Roxanne DISHTANK OPERATOR, DISHTANK OPERATOR-C Roya Referring Provider Dr. Elin Reynolds Referring Provider Dr. Ayush Leblanc Attending Provider Elin Reynolds Unavailable Unavailable Unavailable Dr. Elin Reynolds Primary Care Unavailab Eitan Varner Attending Unavailable Catrachita Benz CNP Unavailable Dr. Elin Reynolds Primary Care Provider Roxanne DISHTANK OPERATOR, DISHTANK OPERATOR-C Roya Attending Provider Roxanne DISHTANK OPERATOR, DISHTANK OPERATOR-C Roya Referring Provider [phone] Dr. Elin Reynolds Referring Provider Dr. Ayush Leblanc Attending Provider Dr. Elin Reynolds Primary Care Provider Roxanne DISHTANK OPERATOR, DISHTANK OPERATOR-C Roya Attending Provider Roxanne DISHTANK OPERATOR, DISHTANK OPERATOR-C Roya Referring Provider Dr. Elin eRynolds Referring Provider Veeragabriel, Dr. Dinora Meek Referring Unav ailable Veyash, Dr. Dinora Meek Attending Unav ailable Yessi, Dr. Elin Pimentel Primary Care Unavailab Josefina Galvan MA Unavailable Unavailable Dr. Elin Reynolds Primary Care Provider Dr. Elin Reynolds Referring Provider Roxanne DISHTANK OPERATOR, DISHTANK OPERATOR-C Roya Attending Provider [place] OPTIMIZATION SPECIALIST, Trav Unavailable Unavailable Darrel OPTIMIZATION SPECIALIST, OLINDA Unavailable Unavailable Dr. Elin Reynolds Primary Care Provider Dr. Elin Reynolds Referring Provider Roxanne DISHTANK OPERATOR, DISHTANK OPERATOR-C Roya Attending Provider Dr. Darrick Kramer Attending Provider Elin Reynolds DO Primary Care Provider VICENTE HAMILTON Attending Unavailable ELIN REYNOLDS Primary Care Unavailable VICENTE HAMILTON Referring Unavailable ELIN REYNOLDS Primary Care Unavailable Dr. Elin Reynolds DO Primary Care Provider [phone] Luis Antonio SANTANA, Dr. Grijalva Attending Provider Dr. Valentine Salmon MD Referring Provider Manuel CHAIDEZ-CLisa Attending Provider Dr. Elin Reynolds DO Referring Provider Dr. Bruno Rae DO Emergency Provider Yessi DAVE, Dr. Worthington Primary Care Provider Yessi DAVE, Dr. Worthington Referring Provider Manuel DISHTANK OPERATOR-C, Lisa Attending Provider Roxanne DISHTANK OPERATOR-C, Roya Attending Provider Mabel VSC, Ximena Primary Care Unavailable Mabel [facility], Ximena Attending Unavailable Yessi, Elin Primary Care Unavailable Yessi, Elin Referring Unavailable Lisa Jackson Attending Unavailable Manuel, Lisa Attending Unavailable Valentine Salmon Referring Unavailable Yessi, Elin Primary Care Unavailable Roya Oliveira NP Attending Unavailable Yessi, Elin Referring Unavailable Yessi, Elin Primary Care Unavailable Yessi, Elin Referring Unavailable Yessi, Elin Primary Care Unavailable Lisa Jackson Attending Unavailable Yessi, Elin Primary Care Unavailable Karl Tamayo Attending Unavailable Bruno Rae Attending Unavailable Yessi, Elin Primary Care Unavailable WyneskiValentine Attending Unavailable MelanieneskiValentine Referring Unavailable Yessi, Elin Primary Care Unavailable Allergies Allergy Classification Reported Allergen(s) Allergy Type Date of Onset Reaction(s) Facility Nortriptyline (15 sources) Nortriptyline; Translations: [Nortriptyline HCl *ANTIDEPRESSANTS *] Drug Allergy [facility] Work Phone: Comment on above: GI upset NSAIDs (15 sources) Naproxen; Translations: [Naproxen *ANALGESICS - ANTI-INFLAMMATOR Y*] Drug Allergy [facility] Work Phone: Comment on above: GI upset terbinafine (15 sources) terbinafine; Translations: [Terbinafine HCl *ANTIFUNGALS*] Drug Allergy Hives [facility] Work Phone: (14 sources) buprenorphine drug allergy 09-16-19 17 hives and swelling [facility] Work Phone: (20 sources) codeine drug allergy 01-08-20 16 Hives - inside and out, Hives [facility] Work Phone: (6 sources) naproxen drug allergy 01-08-20 16 GI Upset [facility] Work Phone: (20 sources) nortriptyline drug allergy 01-08-20 16 GI upset, Upset Stomach [facility] Work Phone: (20 sources) omeprazole; Translations: [omeprazole] drug allergy 01-08-20 16 Diarrhea [facility] Work Phone: (14 sources) penicillin v drug allergy 02-14-20 16 yeast [facility] Work Phone: (14 sources) terbinafine drug allergy 01-08-20 16 Hives [facility] Work Phone: (20 sources) naproxen; Translations: [Naproxen *ANALGESICS - ANTI-INFLAMMATOR Y*] drug allergy 01-08-20 16 GI Upset [facility] Work Phone: Comment on above: GI upset (20 sources) nortriptyline; Translations: [Nortriptyline HCl *ANTIDEPRESSANTS *] Drug Allergy 09-18-19 22 Upset Stomach [facility] Work Phone: Comment on above: GI upset (20 sources) terbinafine; Translations: [Terbinafine HCl *ANTIFUNGALS*] Drug Allergy 09-18-19 22 [facility] Work Phone: (20 sources) Codeine/Codeine Derivatives; Translations: [Codeine/Codeine Derivatives] allergy to substance [facility] Work Phone: (20 sources) Omeprazole *CHEMICALS*; Translations: [Omeprazole *CHEMICALS*] drug allergy Diarrhea [facility] Work Phone: (12 sources) Buprenorphine Drug Allergy 09-18-19 22 [facility] (13 sources) Codeine; Translations: [Codeine Derivatives] Drug Allergy 09-18-19 22 [facility] (13 sources) Penicillins; Translations: [Penicillins] Propensity to adverse reactions 09-18-19 22 yeast infection [facility] (1 source) Allergy to drug (finding) Diarrhea [facility] Work Phone: (1 source) Allergy to drug (finding) Diarrhea [facility] Work Phone: (1 source) Allergy to drug (finding) Diarrhea [facility] Work Phone: (1 source) Allergy to drug (finding) Diarrhea [facility] Work Phone: (1 source) Allergy to drug (finding) Diarrhea [facility] Work Phone: (1 source) Allergy to drug (finding) Diarrhea [facility] Work Phone: (1 source) Allergy to drug (finding) Diarrhea [facility] Work Phone: (1 source) Allergy to drug (finding) Diarrhea [facility] Work Phone: (1 source) Allergy to drug (finding) Diarrhea [facility] Work Phone: (1 source) Allergy to drug (finding) Diarrhea [facility] Work Phone: (9 sources) Penicillin Drug Allergy Rash [facility] Work Phone: (1 source) Allergy to drug (finding) Diarrhea [facility] Work Phone: (1 source) Allergy to drug (finding) Diarrhea [facility] Work Phone: (1 source) Allergy to drug (finding) Diarrhea [facility] Work Phone: (1 source) Allergy to drug (finding) Diarrhea [facility] Work Phone: (1 source) Allergy to drug (finding) Diarrhea [facility] Work Phone: (1 source) Allergy to drug (finding) Diarrhea [facility] Work Phone: (1 source) Allergy to drug (finding) Diarrhea [facility] Work Phone: (1 source) Allergy to drug (finding) Diarrhea [facility] Work Phone: (1 source) Allergy to drug (finding) Diarrhea [facility] Work Phone: (1 source) Buprenorphine Drug Allergy 08-30-19 [facility] (1 source) Codeine Drug Allergy 08-30-19 [facility] (1 source) Naproxen Drug Allergy 08-30-19 [facility] (1 source) Nortriptyline Drug Allergy 08-30-19 [facility] (1 source) Nortriptyline Drug Allergy 08-30-19 [facility] (1 source) Omeprazole Drug Allergy 08-30-19 [facility] (1 source) terbinafine Drug Allergy 08-30-19 [facility] Medications Current Medications Medication Drug Class(es) Dates Sig (Normalized) Sig (Original) amitriptyline hydrochloride 25 mg oral tablet (20 sources) Tricyclic Antidepressant Start: 03-01-2024 take 1 tablet by mouth at bedtime Amitriptyline 25 mg tablet Active 25 mg PO AT BEDTIME March 01, 2024 1:00am esophageal spasm Start: 06-25-2019 End: 03-01-2024 take 1 tablet by mouth at bedtime Amitriptyline 50 MG tablet Discontinued 50 mg PO AT BEDTIME June 25, 2019 12:00am March 01, 2024 12:13pm sleep 1 ml benralizumab 30 mg/ml auto-injector (20 sources) Interleukin-5 Receptor alpha-directed Cytolytic Antibody Start: 06-07-2024 Benralizumab (Fasenr a Pen) 30 mg/mL auto-injector Active 30 mg SC every 8 weeks 02 22June 07, 2024 12:00am Start: 01-02-2020 End: 06-07-2024 Benralizumab (Fasenra) 30 mg /mL syringe Discontinued 30 mg SC every 8 weeks 02 22April 29, 2024 12:43pm June 07, 2024 7:04am Severe persistent asthma, uncomplicated Start: 06-27-2019 End: 01-02-2020 Benralizumab (Fasenra) 30 mg /mL syringe Discontinued 30 mg SC every 4 weeks 03 17 10December 29, 2019 12:08pm January 02, 2020 2:29pm Severe persistent asthma, uncomplicated estradiol 0.1 mg/ml vaginal cream (1 source) Estrogen Start: 08-29-2024 Estradiol 0.01 % (0.1 mg/gram) cream Active 1 NMA VAGINAL 3 TIMES A WEEK August 29, 2024 12:00am Handicap Placcard (10 sources) Start: 02-04-2022 Handicap Placc emil Active 0 .ROUTE .MEDSUPPLY 1 February 04, 2022 1:00am J44.9 Length of Time: 99 months Start: 02-04-2022 Handicap Placc emil Active 0 .ROUTE .MEDSUPPLY February 04, 2022 1:00am Length of Time: 99 months Start: 02-04-2022 Handicap Placc emil Active 0 .ROUTE .MEDSUPPLY February 04, 2022 12:00am Length of Time: 99 months lisinopril 10 mg oral tablet (20 sources) Angiotensin Converting Enzyme Inhibitor Start: 03-13-2016 take 1 tablet by mouth at bedtime Lisinopril 10 MG tablet Active 10 mg PO AT BEDTIME July 09, 2017 12:00am blood pressure 24 hr metFORMIN hydrochloride 500 mg extended release oral tablet (20 sources) Biguanide Start: 11-27-2022 Start: 11-27-2022 Start: 11-29-2021 Start: 11-19-2020 Start: 08-07-2020 take 1 tablet by [facility] twice daily Metformin 500 mg tablet Active 500 mg PO TWICE A DAY August 07, 2020 12:00am Start: 07-09-2020 take 2 tablets by [facility] once daily metFORMIN HCl ER 500 MG Oral Tablet Extended Release 24 Hour 2 (two) Tablet qd for 30 days Quantity: 60 {Tablet} Refills: 3 Ordered: 11-Jul-2020 Tarah Chavez CNP Start : 11-Jul-2020 Active Start: 04-04-2020 take 2 tablets by [facility] once daily metFORMIN HCl ER 500 MG Oral Tablet Extended Release 24 Hour 2 (two) Tablet qd for 30 days Quantity: 60 {Tablet} Refills: 2 Ordered: 04-Apr-2020 Yessi DAVE Elin Reynolds DO Elin Start : 04-Apr-2020 Active Start: 11-30-2019 take 2 tablets by [facility] once daily metFORMIN HCl ER 500 MG Oral Tablet Extended Release 24 Hour 2 (two) Tablet qd for 30 days Quantity: 60 {Tablet} Refills: 3 Ordered: 30-Nov-2019 Yessi DAVE Elin Arguellocecilia DAVE Elin Start : 30-Nov-2019 Active Start: 11-28-2019 take 2 tablets by mo ut once daily metFORMIN HCl ER 500 MG Oral Tablet Extended Release 24 Hour 2 (two) Tablet qd for 0 days Quantity: 180 {Tablet} Refills: 3 Ordered: 28-Nov-2019 Yessi DAVE Elin Arguellocecilia DAVE Elin Start : 28-Nov-2019 Active Comments: Mail order. Start: 11-28-2019 take 2 tablets by [facility] once daily metFORMIN HCl ER 500 MG Oral Tablet Extended Release 24 Hour 2 (two) Tablet qd for 30 days Quantity: 60 {Tablet} Refills: 3 Ordered: 28-Nov-2019 Yessi DAVE Elin Arguellocecilia DAVE Elin Start : 28-Nov-2019 Active Start: 09-23-2019 take 2 tablets by [facility] once daily metFORMIN HCl ER 500 MG Oral Tablet Extended Release 24 Hour 2 (two) Tablet qd for 0 days Quantity: 180 {Tablet} Refills: 3 Ordered: 23-Sep-2019 Yessi DAVE Elin Reynolds DO Elin Start : 23-Sep-2019 Active Comments: Mail order. Start: 07-29-2019 take 2 tablets by [facility] once daily metFORMIN HCl ER 500 MG Oral Tablet Extended Release 24 Hour 2 (two) Tablet qd for 30 days Quantity: 60 {Tablet} Refills: 3 Ordered: 29-Jul-2019 Rebecca Pham RN Start : 29-Jul-2019 Active Comment on above: Mail order. Nebulizers (10 sources) Start: 04-02-2020 Nebulizers Act jeff 0 .ROUTE .MEDSUPPLY April 02, 2020 12:00am As directed Start: 04-02-2020 Nebulizers Act jeff 0 .ROUTE .MEDSUPPLY April 02, 2020 1:00am As directed Nebulizers misc (2 sources) Start: 04-02-2020 Nebulizers mis c Active 0 .ROUTE .MEDSUPPLY 1 0 April 02, 2020 1:00am As directed Start: 04-02-2020 Nebulizers mis c Active 0 .ROUTE .MEDSUPPLY 1 April 02, 2020 1:00am As directed pantoprazole 40 mg delayed release oral tablet (20 sources) Proton Pump Inhibitor Start: 04-26-2024 take 1 tablet by mouth once daily Pantoprazole 40 mg tablet,delayed release (DR/EC) Active 40 mg PO DAILY April 26, 2024 12:00am Start: 01-27-2024 End: 01-27-2024 take 1 tablet by mouth once daily Pantoprazole 40 mg tablet,delayed release (DR/EC) Discontinued 40 mg PO daily January 27, 2024 11:08am January 27, 2024 11:37am gerd Start: 01-27-2024 End: 04-26-2024 take 1 tablet by mouth once daily Pantoprazole 20 mg tablet,delayed release (DR/EC) Discontinued 20 mg PO daily 17 03January 27, 2024 1:00am April 26, 2024 8:33pm GERD Start: 04-09-2023 End: 01-27-2024 take 1 tablet by mouth twice daily Pantoprazole 40 mg tablet,delayed release (DR/EC) Discontinued 40 mg PO TWICE A DAY April 09, 2023 11:17am January 27, 2024 11:08am gerd Start: 10-12-2018 Pantoprazole S odium 40 MG Oral Tablet Delayed Release [address] qd for 0 days Quantity: 90 {Tablet} Refills: 3 Ordered: 12-Oct-2018 Elin Reynolds DO, DO, Kathleen Start : 12-Oct-2018 Active Start: 09-02-2017 Pantoprazole S odium 40 MG Oral Tablet Delayed Release [address] qd for 0 days Quantity: 90 {Tablet} Refills: 3 Ordered: 02-Sep-2017 Elin Reynolds DO, DO, Kathleen Start : 02-Sep-2017 Active Start: 01-21-2016 Start: 11-05-2015 End: 04-09-2023 take 1 tablet by mouth once daily Pantoprazole 40 MG tablet Discontinued 40 mg PO DAILY November 05, 2015 12:00am April 09, 2023 11:18am gerd simvastatin 40 mg oral tablet (20 sources) HMG-CoA Reductase Inhibitor Start: 03-14-2014 End: 09-15-2016 take 1 tablet by mouth at bedtime Simvastatin 40 MG tablet Active 40 mg PO AT BEDTIME November 05, 2015 12:00am cholesterol Completed/Discontinued Medications Medication Drug Class(es) Dates Sig (Normalized) Sig (Original) acetaminophen 325 mg / HYDROcodone bitartrate 5 mg oral tablet (20 sources) Opioid Agonist Start: 05-27-2016 NORCO 5-325 MG TABS once daily HYDROCODONE-ACETAMI NOPHEN [id number] Mirlande Santiago Start: 05-27-2016 NORCO 5-325 MG TABS once daily HYDROCODONE-ACETAMINOPHEN [id number] Mirlande Santiago acetaminophen 325 mg / oxyCO DONE hydrochloride 5 mg oral tablet (20 sources) Opioid Agonist Percocet 5-325 M G Oral Tablet 1-2 4-6 hrs prn (5-325 MG) Inactive [id number] actuat albuterol 0.09 mg/actuat metered dose inhaler (20 sources) beta2-Adrenergic Agonist Start: 04-01-2019 End: 02-18-2023 Albuterol Sulfate (Ventolin Hfa) 90 mcg/actuation HFA aerosol inhaler Discontinued 2 NMA INHALATION Q4H as needed for shortness of breath or wheezing 02 21May 05, 2019 7:56am February 05, 2021 9:29am Start: 04-01-2019 End: 02-04-2022 take 1 puff(s) by inhalation every four hours Albuterol Sulfate (Ventolin Hfa) 90 mcg/actuation HFA aerosol inhaler Discontinued 2 PUFF INHALATION Q4H May 05, 2019 6:56am February 05, 2021 8:29am Start: 06-29-2018 End: 04-01-2019 Albuterol Sulfate (Ventolin Hfa) 90 mcg/actuation HFA aerosol inhaler Discontinued 2 NMA INHALATION Q4H as needed for shortness of breath or wheezing 02 21June 29, 2018 12:00am April 01, 2019 2:37pm Start: 06-29-2018 End: 04-01-2019 take 1 puff(s) by inhalation every four hours Albuterol Sulfate (Ventolin Hfa) 90 mcg/actuation HFA aerosol inhaler Discontinued 2 PUFF INHALATION Q4H June 28, 2018 11:00pm April 01, 2019 1:37pm Start: 02-26-2017 End: 12-30-2018 Albuterol Sulfate 1 INHALER inhaler Discontinued 2 NMA INHALATION EVERY 6 HOURS NEEDED as needed for Sob &/Or Wheezing 3 3 February 26, 2017 10:40am December 30, 2018 11:52am Unspecified asthma, uncomplicated Start: 02-26-2017 End: 12-30-2018 take 1 puff(s) by inhalation every six hours as needed Albuterol Sulfate Discontinued 2 PUFF INHALATION EVERY 6 HOURS NEEDED February 26, 2017 9:40am December 30, 2018 10:52am Start: 11-14-2016 take 1 dose by inhal ation every four hours as needed for wheezing ALBUTEROL SULFATE 0.63 MG/3ML NEBU One vial INH q 4 hours PRN wheezing ALBUTEROL SULFATE [id number] oRya Oliveira CNP Start: 05-27-2016 ALBUTEROL SULF ATE (5 MG/ML) 0.5% NEBU 1-4 times daily as directed ALBUTEROL SULFATE [id number] Roya Oliveira CNP Start: 05-27-2016 VENTOLIN HFA 1 08 (90 Base) MCG/ACT AERS as directed ALBUTEROL SULFATE [id number] Mirlande Santiago Start: 05-27-2016 ALBUTEROL SULF ATE (5 MG/ML) 0.5% NEBU 1-4 times daily as directed ALBUTEROL SULFATE [id number] Mirlande Santiago Start: 05-27-2016 VENTOLIN HFA 1 08 (90 Base) MCG/ACT AERS as directed ALBUTEROL SULFATE [id number] Mirlande Santiago Start: 01-08-2016 ALBUTEROL SULF ATE (2.5 MG/3ML) 0.083% NEBU 1-4 inhalation daily as needed ALBUTEROL SULFATE [id number] Chanell Billy Start: 01-08-2016 VENTOLIN HFA 1 08 (90 Base) MCG/ACT AERS 2 puffs every six hours as needed ALBUTEROL SULFATE [id number] Chanell Yuly Billy Start: 01-08-2016 End: 09-15-2016 VENTOLIN HFA 108 (90 Base) M CG/ACT AERS 1-2 puffs every 4 hours as needed ALBUTEROL SULFATE [id number] Chanelljarod Sow LPN Start: 01-08-2016 VENTOLIN HFA 1 08 (90 Base) MCG/ACT AERS 1-2 puffs every 4 hours as needed ALBUTEROL SULFATE [id number] Ayush Leblanc DO Start: 01-08-2016 End: 09-15-2016 VENTOLIN HFA 108 (90 Base) M CG/ACT AERS 1-2 puffs every 4 hours as needed ALBUTEROL SULFATE [id number] Chanell Nicky Sow LPN Start: 01-08-2016 VENTOLIN HFA 1 08 (90 Base) MCG/ACT AERS 2 puffs every six hours as needed ALBUTEROL SULFATE [id number] Chanell Yuly Billy Start: 11-05-2015 End: 04-21-2019 take 2.5 mg by inhalation every four hours as needed for wheezing Albuterol Sulfate 2.5 mg /3 mL (0.083 %) solution for nebulization Discontinued 2.5 mg INHALATION EVERY 4 HOURS WHILE AWAKE as needed for Sob &/Or Wheezing 180 6 December 03, 2017 4:08pm April 21, 2019 11:51am Start: 11-05-2015 End: 02-26-2017 Albuterol Sulfate 1 INHALER inhaler Discontinued 2 NMA INHALATION EVERY 6 HOURS NEEDED as needed for Sob &/Or Wheezing November 05, 2015 12:00am February 26, 2017 10:42am Start: 11-05-2015 End: 02-26-2017 take 1 puff(s) by inhalation every six hours as needed Albuterol Sulfate Discontinued 2 PUFF INHALATION EVERY 6 HOURS NEEDED November 04, 2015 11:00pm February 26, 2017 9:42am Start: 03-10-2013 Albuterol Sulf ate (2.5 MG/3ML) 0.083% Inhalation Nebulization Solution Quantity: 255 Refills: 0 Ordered: 10-Mar-2013 DO Start : 10-Mar-2013 Active Start: 03-02-2012 Ventolin HFA 1 08 (90 Base) MCG/ACT Inhalation Aerosol Solution Quantity: 54 Refills: 0 Ordered: 08-Mar-2012 DO Start : 02-Mar-2012 Active Albuterol Sulfat e (2.5 MG/3ML) 0.083% Inhalation Nebulization Solution 1-4 qd/prn ((2.5 MG/3ML) 0.083%) Active take 2 puff(s) by in halation every six hours as needed Ventolin HFA 108 (90 Base) MCG/ACT Inhalation Aerosol Solution 2 puffs q 6hrs prn (108 (90 Base) MCG/ACT) Active take 2 puff(s) by in halation every six hours as needed Ventolin HFA 108 (90 Base) MCG/ACT Inhalation Aerosol Solution 2 puffs q 6hrs prn (108 (90 Base) MCG/ACT) Active amLODIPine 10 mg / hydroCHLOROthiazide 12.5 mg / valsartan 160 mg oral tablet (20 sources) Thiazide Diuretic, Dihydropyridine Calcium Channel Alpa, Angiotensin 2 Receptor Alpa Start: 05-27-2016 End: 09-15-2016 [id number] 10-160-12.5 MG TABS once daily [id number] Chanell Sow LPN amoxicillin 875 mg / clavulanate 125 mg oral tablet (14 sources) Penicillin-class Antibacterial Start: 09-15-2016 End: 09-25-2016 AUGMENTIN 875-125 MG TABS 1 tab twice daily AMOXICILLIN-POT CLAVULANATE [id number] Roya Oliveira CNP Start: 09-15-2016 End: 09-25-2016 AUGMENTIN 875-125 MG TABS 1 tab twice daily AMOXICILLIN-POT CLAVULANATE [id number] Roya Oliveira VASCULAR SURGEON azithromycin 250 mg oral tab let (20 sources) Macrolide Antimicrobial Start: 05-06-2021 End: 04-28-2022 Start: 01-10-2019 End: 01-17-2019 take 1 tablet by mouth once daily Azithromycin 250 mg tablet Discontinued 250 mg PO daily 6 0 January 10, 2019 1:00am January 17, 2019 12:17pm Start: 09-27-2018 End: 09-27-2018 Start: 09-23-2018 End: 12-30-2018 take 2 tablets by mouth once daily, then take 1 tablet by mouth once daily Azithromycin 250 MG tablet Discontinued 250 mg PO DIRECTED September 23, 2018 12:00am December 30, 2018 11:53am TAKE 2 TABLETS 1ST DAY THEN 1 TABLET DAILY FOR NEXT 4 DAYS. Start: 01-14-2018 End: 02-08-2018 take 1 tablet by mouth once daily Azithromycin 250 mg tablet Discontinued 250 mg PO daily 6 January 14, 2018 1:00am February 08, 2018 11:20am Start: 08-25-2016 End: 09-01-2016 Zithromax Z-Peter 250 MG Oral Tablet 1 (one) Tablet TAD for 0 days Quantity: 1 {Package} Refills: 0 Ordered: 01-Sep-2016 Caterina Oneil LPN Start : 25-Aug-2016 End : 01-Sep-2016 Discontinued benzonatate 200 mg oral capsule (12 sources) Non-narcotic Antitussive Start: 04-19-2018 End: 04-09-2023 take 1 capsule by mouth three times daily as needed for cough Benzonatate 200 mg capsule Discontinued 200 mg PO THREE TIMES A DAY as needed for cough 90 0 April 19, 2018 1:00am April 09, 2023 11:16am brompheniramine maleate 0.4 mg/ml / dextromethorphan hydrobromide 2 mg/ml / pseudoephedrine hydrochloride 6 mg/ml oral solution (20 sources) alpha-Adrenergic Agonist, Uncompetitive O-rdkfmg-W-aspartat e Receptor Antagonist, Sigma-1 Agonist Start: 01-23-2016 End: 03-13-2016 Start: 01-23-2016 End: 03-13-2016 take 10 mL by mouth every four hours as needed for cough Bromfed DM 30-2-10 MG/5ML Oral Syrup 10 Milliliter Milliliter q4hr prn cough for 0 days Quantity: 120 {Milliliter} Refills: 0 Ordered: 13-Mar-2016 Rebecca Pham RN Start : 23-Jan-2016 End : 13-Mar-2016 Inactive Comments: no greater than 40ml/day Comment on above: no greater than 40ml /day 168 hr buprenorphine 0.01 mg/hr transdermal system (20 sources) Partial Opioid Agonist Start: 05-27-2016 End: 09-15-2016 BUTRANS 10 MCG/HR PTWK once a week BUPRENORPHINE [id number] Chanell Saunders Magi DEANN Start: 05-27-2016 BUTRANS 10 MCG /HR PTWK once a week BUPRENORPHINE [id number] Mirlande Santiago Start: 05-27-2016 End: 09-15-2016 BUTRANS 10 MCG/HR PTWK once a week BUPRENORPHINE [id number] Chanell Nicky Sow OPTIMIZATION SPECIALIST cetirizine hydrochloride 10 mg oral capsule (20 sources) Histamine-1 Receptor Antagonist Start: 11-29-2021 take 1 tablet by mouth at bedtime Cetirizine HCl - 10 MG Oral Tablet TAKE 1 TABLET BY MOUTH AT BEDTIME Quantity: 30 Refills: 0 Ordered: 26-Mar-2022 DO Start : 29-Nov-2021 Active Start: 07-20-2018 End: 04-26-2024 take 1 capsule by mouth at bedtime Cetirizine 10 mg capsule Discontinued 10 mg PO BEDTIME 30 11 September 25, 2022 12:26pm August 26, 2023 9:29am ciprofloxacin 500 mg oral tablet (9 sources) Quinolone Antimicrobial Start: 08-20-2022 End: 08-25-2022 take 1 tablet by mouth every twelve hours clotrimazole 10 mg oral lozenge (20 sources) Azole Antifungal Start: 09-27-2018 End: 10-07-2018 Start: 05-10-2018 End: 05-20-2018 Clotrimazole 10 MG Mouth/Thr oat Brittney 1 (one) Brittney 5x daily for 10 days Quantity: 50 {Brittney} Refills: 0 Ordered: 10-May-2018 Tarah Chavez CNP Start : 10-May-2018 End : 20-May-2018 Inactive cyclobenzaprine hydrochloride 10 mg oral tablet (20 sources) Muscle Relaxant Start: 01-08-2016 End: 02-14-2016 CYCLOBENZAPRINE HCL 10 MG TABS three times a day as needed CYCLOBENZAPRINE HCL [id number] Chanell Forrestin Sow OPTIMIZATION SPECIALIST take 1 tablet by pattie th every eight hours as needed Cyclobenzaprine HCl 10 MG Oral Tablet 1 q8hrs prn (10 MG) Inactive docusate sodium 100 mg oral capsule (20 sources) take 2 capsules by mouth once da oneyda Stool Softener 100 MG Oral Capsule 2 qd (100 MG) Inactive enalapril maleate 10 mg oral tablet (20 sources) Angiotensin Converting Enzyme Inhibitor Start: 01-08-2016 End: 09-15-2016 ENALAPRIL MALEATE 10 MG TABS daily ENALAPRIL MALEATE [id number] Chanell Nicky Sow OPTIMIZATION SPECIALIST Fasenra injectin (20 sources) Fasenra injectin Active Comments: Pulm Comment on above: Pulm fluconazole 150 mg oral tablet (20 sources) Azole Antifungal Start: 04-26-2024 End: 08-29-2024 take 1 tablet by mouth every week as needed Fluconazole 150 mg tablet Discontinued 150 mg PO EVERY WEEK as needed for yeast 2 0 April 26, 2024 10:55pm August 29, 2024 9:20am Start: 03-10-2019 End: 07-08-2019 Start: 09-15-2016 End: 11-06-2016 DIFLUCAN 150 MG TABS 1 tab 2 FLUCONAZOLE [id number] Chanell Nicky Sow OPTIMIZATION SPECIALIST fluticasone propionate 0.05 mg/actuat metered dose nasal spray (20 sources) Corticosteroid Start: 07-30-2018 End: 08-20-2022 Start: 07-30-2018 Start: 01-14-2018 End: 04-09-2023 Fluticasone Propionate (Flon ase Allergy Relief) 50 mcg/actuation spray,suspension Discontinued 2 NMA INTRANASAL DAILY 18.2 8 July 20, 2018 12:21pm April 09, 2023 11:16am Start: 01-14-2018 End: 07-20-2018 Fluticasone Propionate (Flon ase Allergy Relief) 50 mcg/actuation spray,suspension Discontinued 2 SPRAY INTRANASAL DAILY 18.2 January 14, 2018 10:01am July 20, 2018 11:21am Start: 11-06-2016 take 2 spray(s) nasa l route once daily FLONASE ALLERGY RELIEF 50 MCG/ACT SUSP 2 sprays each nostril daily FLUTICASONE PROPIONATE [id number] Roya Oliveira VASCULAR SURGEON Start: 11-06-2016 take 2 spray(s) nasa l route once daily FLONASE ALLERGY RELIEF 50 MCG/ACT SUSP 2 sprays each nostril daily FLUTICASONE PROPIONATE [id number] Roya Oliveira VASCULAR SURGEON 14 actuat fluticasone furoate 0.2 mg/actuat / vilanterol 0.025 mg/actuat dry powder inhaler (20 sources) Corticosteroid, beta2-Adrenergic Agonist Start: 06-29-2018 End: 09-26-2019 Fluticasone Furoate-Vilanterol (Breo Ellipta) 200-25 mcg/dose blister with device Discontinued 1 NMA INHALATION DAILY 1 June 29, 2018 12:00am September 26, 2019 10:48am Start: 06-29-2018 End: 09-26-2019 Fluticasone Furoate-Vilanter ol (Breo Ellipta) 200-25 mcg/dose blister with device Discontinued 1 INH INHALATION DAILY 1 June 28, 2018 11:00pm September 26, 2019 9:48am Start: 12-03-2017 End: 12-30-2018 Fluticasone Furoate-Vilanter ol 200-25 mcg/dose blister with device Discontinued 1 NMA INHALATION DAILY 60 6 December 03, 2017 4:08pm December 30, 2018 11:53am asthma Start: 12-03-2017 End: 12-30-2018 Fluticasone Furoate-Vilanter ol 200-25 mcg/dose blister with device Discontinued 1 NMA INHALATION DAILY 60 December 03, 2017 4:08pm December 30, 2018 11:53am Start: 12-03-2017 End: 12-30-2018 Fluticasone Furoate-Vilanter ol Discontinued 1 EACH INHALATION DAILY 60 December 03, 2017 3:08pm December 30, 2018 10:53am Start: 12-03-2017 End: 12-30-2018 Fluticasone Furoate-Vilanter ol Discontinued 1 EACH INHALATION DAILY 60 December 03, 2017 4:08pm December 30, 2018 11:53am Start: 07-09-2017 End: 12-03-2017 take 1 dose by inhalation once daily Fluticasone Furoate-Vilanterol 1 EACH blister with device Discontinued 1 NMA IH DAILY July 09, 2017 12:00am December 03, 2017 4:09pm asthma Start: 07-09-2017 End: 12-03-2017 take 1 dose by inhalation once daily Fluticasone Furoate-Vilanterol 1 EACH blister with device Discontinued 1 NMA IH DAILY July 09, 2017 12:00am December 03, 2017 4:09pm Start: 07-09-2017 End: 12-03-2017 Fluticasone Furoate-Vilanter ol Discontinued 1 EACH IH DAILY July 08, 2017 11:00pm December 03, 2017 3:09pm Start: 07-09-2017 End: 12-03-2017 Fluticasone Furoate-Vilanter ol Discontinued 1 EACH IH DAILY July 09, 2017 12:00am December 03, 2017 4:09pm Start: 06-08-2017 End: 12-28-2020 Start: 06-08-2017 End: 12-28-2020 Start: 06-08-2017 take 1 puff(s) by in halation once daily Breo Ellipta 100-25 MCG/INH Inhalation Aerosol Powder Breath Activated 1 (one) Puff Puff qd for 0 days Quantity: 1 {Inhalation} Refills: 0 Ordered: 23-Jun-2017 Warner Byrd LPN Start : 08-Jun-2017 Active Comments: Dr Leblanc Start: 06-08-2017 Breo Ellipta 1 00-25 MCG/INH Inhalation Aerosol Powder Breath Activated 1 (one) Puff Puff qd for 0 days Quantity: 1 {Inhalation} Refills: 0 Ordered: 23-Jun-2017 Warner Herbert Start : 08-Jun-2017 Active Comments: Dr Leblanc Start: 11-06-2016 take 1 puff(s) by in halation once daily BREO ELLIPTA 200-25 MCG/INH AEPB One puff INH every day FLUTICASONE FUROATE-VILANTEROL [id number] Roya Oliveira CNP Start: 11-06-2016 take 1 puff(s) by in halation once daily BREO ELLIPTA 200-25 MCG/INH AEPB One puff INH every day FLUTICASONE FUROATE-VILANTEROL [id number] Roya Oliveira VASCULAR SURGEON Comment on above: Dr Leblanc 120 actuat formoterol fumara te 0.005 mg/actuat / mometasone furoate 0.2 mg/actuat metered dose inhaler (20 sources) Corticosteroid, beta2-Adrenergic Agonist Start: 06-08-2017 End: 06-08-2017 Start: 06-08-2017 End: 06-08-2017 Start: 06-08-2017 End: 06-08-2017 take 1 puff(s) by inhalation twice daily Dulera 200-5 MCG/ACT Inhalation Aerosol 1 puff Puff bid for 0 days Quantity: 1 {Inhaler} Refills: 0 Ordered: 08-Jun-2017 Elin Reynolds DO, DO, Kathleen Start : 08-Jun-2017 End : 08-Jun-2017 Inactive Comments: new dose Start: 06-08-2017 End: 06-08-2017 Dulera 200-5 MCG/ACT Inhalat ion Aerosol 1 puff Puff bid for 0 days Quantity: 1 {Inhaler} Refills: 0 Ordered: 08-Jun-2017 Elin Reynolds DO, DO, Kathleen Start : 08-Jun-2017 End : 08-Jun-2017 Inactive Comments: new dose Start: 05-27-2016 DULERA 100-5 M CG/ACT AERO 1 puff twice daily MOMETASONE FURO-FORMOTEROL FUM [id number] Mirlande Santiago Start: 01-08-2016 End: 09-15-2016 DULERA 100-5 MCG/ACT AERO 1 puff twice daily MOMETASONE FURO-FORMOTEROL FUM [id number] Mirlande Santiago Start: 01-08-2016 DULERA 100-5 M CG/ACT AERO 1 puff twice daily MOMETASONE FURO-FORMOTEROL FUM [id number] Ayush Leblanc DO Start: 01-08-2016 End: 09-15-2016 DULERA 100-5 MCG/ACT AERO 1 puff twice daily MOMETASONE FURO-FORMOTEROL FUM [id number] Chanell Sow LPN Start: 11-05-2015 End: 02-26-2017 Dulera 100 Mcg/5 Mcg Inhaler Discontinued 1 NMA INHALATION TWICE A DAY November 05, 2015 12:00am February 26, 2017 10:39am Start: 11-05-2015 End: 02-26-2017 take 1 puff(s) by inhalation twice daily Dulera 100 Mcg/5 Mcg Inhaler Discontinued 1 PUFF INHALATION TWICE A DAY November 04, 2015 11:00pm February 26, 2017 9:39am Start: 11-05-2015 End: 02-26-2017 take 1 puff(s) by inhalation twice daily Dulera 100 Mcg/5 Mcg Inhaler Discontinued 1 PUFF INHALATION TWICE A DAY November 05, 2015 12:00am February 26, 2017 10:39am Comment on above: new dose hydroCHLOROthiazide 12.5 mg oral tablet (20 sources) Thiazide Diuretic Start: 02-06-2022 Start: 11-06-2020 Start: 10-27-2019 take 1 tablet by pattie th once daily hydroCHLOROthiazide 12.5 MG Oral Tablet 1 Tablet qd for 90 days Quantity: 90 {Tablet} Refills: 3 Ordered: 27-Oct-2019 Yessi Elin DAVE DO, Kathleen Start : 27-Oct-2019 Active Start: 10-25-2019 take 1 tablet by pattie th once daily hydroCHLOROthiazide 12.5 MG Oral Tablet 1 Tablet qd for 90 days Quantity: 90 {Tablet} Refills: 3 Ordered: 25-Oct-2019 Yessi DOElin DO, Kathleen Start : 25-Oct-2019 Active Start: 10-21-2019 take 1 tablet by pattie th once daily hydroCHLOROthiazide 12.5 MG Oral Tablet 1 Tablet qd for 90 days Quantity: 90 {Tablet} Refills: 3 Ordered: 21-Oct-2019 Yessi DOElin DO, Kathleen Start : 21-Oct-2019 Active Start: 10-25-2018 take 1 tablet by pattie th once daily hydroCHLOROthiazide 12.5 MG Oral Tablet 1 Tablet qd for 90 days Quantity: 90 {Tablet} Refills: 3 Ordered: 25-Oct-2018 Yessi DOElin DO, Kathleen Start : 25-Oct-2018 Active Start: 09-02-2017 take 1 tablet by pattie th once daily HydroCHLOROthiazide 12.5 MG Oral Tablet 1 Tablet qd for 90 days Quantity: 90 {Tablet} Refills: 3 Ordered: 02-Sep-2017 Elin Reynolds DO, DO, Kathleen Start : 02-Sep-2017 Active Start: 09-15-2016 take 1 tablet by pattie th once daily HYDROCHLOROTHIAZIDE 12.5 MG CAPS One tablet by mouth daily HYDROCHLOROTHIAZIDE [id number] Chanell Sow LPN Start: 01-08-2016 End: 03-24-2016 HYDROCHLOROTHIAZIDE 12.5 MG TABS daily HYDROCHLOROTHIAZIDE [id number] Chanell Billy Start: 11-05-2015 take 1 tablet by pattie th once daily Hydrochlorothiazide 25 MG tablet Active 12.5 mg PO DAILY November 05, 2015 12:00am diuretic/water pill Start: 11-05-2015 Hydrochlorothi azide 25 MG tablet Active 12.5 mg PO DAILY November 05, 2015 12:00am Start: 11-05-2015 take 12.5 mg by mout h once daily Hydrochlorothiazide Active 12.5 MG PO DAILY November 04, 2015 11:00pm ipratropium bromide 0.2 mg/ml inhalant solution (20 sources) Anticholinergic Start: 01-08-2016 End: 02-14-2016 IPRATROPIUM BROMIDE 0.02 % SOLN 1-4 inhalation daily as needed IPRATROPIUM BROMIDE [id number] Chanell L Wenceslao Start: 11-05-2015 End: 02-26-2017 Ipratropium Witten 0.5 MG/2 .5 ML solution Discontinued 1 NMA INHALATION EVERY 4 HOURS NEEDED as needed for Sob &/Or Wheezing November 05, 2015 12:00am February 26, 2017 10:40am Start: 11-05-2015 End: 02-26-2017 Ipratropium Witten Disconti nued 1 INH INHALATION EVERY 4 HOURS NEEDED November 04, 2015 11:00pm February 26, 2017 9:40am levoFLOXacin 500 mg oral tab let (20 sources) Quinolone Antimicrobial Start: 09-27-2018 End: 10-07-2018 Start: 05-10-2018 End: 05-20-2018 take 1 tablet by mouth once daily Levaquin 500 MG Oral Tablet 1 (one) Tablet daily for 10 days Quantity: 10 {Tablet} Refills: 0 Ordered: 10-May-2018 Tarah Chavez CNP Start : 10-May-2018 End : 20-May-2018 Inactive Start: 09-01-2016 End: 09-12-2016 take 1 tablet by mouth once daily Levaquin 500 MG Oral Tablet 1 (one) Tablet Tablet daily for 0 days Quantity: 14 {Tablet} Refills: 0 Ordered: 12-Sep-2016 Amairani Bravo LPN Start : 01-Sep-2016 End : 12-Sep-2016 Inactive Start: 01-31-2016 End: 02-07-2016 LORazepam 0.5 mg oral tablet (20 sources) Benzodiazepine Start: 01-08-2016 End: 02-14-2016 LORAZEPAM 0.5 MG TABS daily as needed LORAZEPAM [id number] Chanell Billy magnesium citrate (20 sources) Magnesium Citrat e Powder 1 prn Inactive meloxicam 15 mg oral tablet (20 sources) Nonsteroidal Anti-inflammatory Drug Start: 09-30-2022 End: 11-06-2022 Start: 04-28-2022 End: 05-28-2022 Start: 04-28-2019 End: 07-09-2020 methylPREDNISolone 4 mg oral tablet (20 sources) Corticosteroid montelukast 10 mg oral tablet (20 sources) Leukotriene Receptor Antagonist Start: End: take 1 tablet by mouth once daily in the evening Montelukast 10 mg tablet Discontinued 10 mg PO EVERY EVENING 30 September 25, 2022 12:26pm August 26, 2023 9:29am nystatin [id number] unt/ml oral suspension (12 sources) Polyene Antifungal Start: End: Nystatin 100,000 unit/mL suspension Discontinued 5 mL MUCOUS MEM THREE TIMES A DAY 250 February 08, 2018 1:00am December 30, 2018 11:53am swish and swallow 5 cc three times per day for 10 days Start: 02-08-2018 End: 12-30-2018 Nystatin Discontinued 5 ML M UCOUS MEM THREE TIMES A DAY February 08, 2018 12:00am December 30, 2018 10:53am swish and swallow 5 cc three times per day for 10 days ofloxacin 3 mg/ml ophthalmic solution (20 sources) Quinolone Antimicrobial Start: 05-10-2018 End: 06-21-2018 Start: 05-10-2018 End: 06-21-2018 Ocuflox 0.3 % Ophthalmic Radha ution 1-2 Metric Drop q 2-4 hr x 2 days , then 1-2 gtt qid x 5 days for 0 days Quantity: 1 {Bottle} Refills: 0 Ordered: 21-Jun-2018 Rebecca Pham RN Start : 10-May-2018 End : 21-Jun-2018 Inactive ondansetron 4 mg disintegrating oral tablet (2 sources) Serotonin-3 Receptor Antagonist Start: 04-26-2024 End: 08-29-2024 take 1 tablet by mouth every eight hours as needed for nausea Ondansetron 4 mg tablet,disintegrating Discontinued 4 mg PO EVERY 8 HOURS NEEDED as needed for Nausea 10 April 26, 2024 12:00am August 29, 2024 9:21am oseltamivir 75 mg oral capsule (20 sources) Neuraminidase Inhibitor Start: 06-23-2017 End: 12-14-2017 oxyCODONE hydrochloride 5 mg oral tablet (4 sources) Opioid Agonist Start: 11-10-2022 End: 02-18-2023 take 1 tablet by mouth every six hours as needed for pain Oxycodone 5 mg tablet Discontinued 5 mg PO EVERY 6 HOURS as needed for pain 12 3 0 November 10, 2022 February 18, 2023 10:45am Musculoskeletal back pain Dorsalgia, unspecified pen needle, diabetic (19 sources) Start: 07-09-2020 Pen Lutz (5 sources) Start: 07-09-2020 phenazopyridine hydrochloride 200 mg oral tablet (11 sources) Start: 10-18-2021 End: 04-09-2023 take 1 tablet by mouth twice daily as needed for pain Phenazopyridine (Pyridium) 200 mg tablet Discontinued 200 mg PO TWICE DAILY NEEDED as needed for Pain 10 October 18, 2021 12:00am April 09, 2023 11:17am predniSONE 10 mg oral tablet (20 sources) Corticosteroid Start: 05-29-2021 End: 02-04-2022 take 1 tablet by mouth once daily as needed Prednisone 10 mg tablet Discontinued 10 mg PO daily as needed May 29, 2021 9:57am February 04, 2022 10:56am Start: 05-06-2021 End: 05-15-2021 Start: 10-04-2020 End: 05-29-2021 Prednisone 10 mg tablet Discontinued 10 mg PO daily 30 October 04, 2020 12:00am May 29, 2021 9:57am take 4 tabs for three days, then 3 tabs for three days, then 2 tabs for three days, then 1 tab for 3 days Start: 03-01-2020 End: 08-07-2020 take 40 mg by mouth once daily Prednisone Discontinued 40 MG PO daily March 01, 2020 3:51pm August 07, 2020 9:27am Start: 03-01-2020 End: 03-01-2020 take 1 tablet by mouth once daily Prednisone 10 mg tablet Discontinued 10 mg PO daily 20 March 01, 2020 8:35am March 01, 2020 4:52pm Start: 02-24-2020 End: 08-07-2020 take 4 tablets by mouth once daily Prednisone 10 mg tablet Discontinued 40 mg PO daily March 01, 2020 4:51pm August 07, 2020 10:27am Start: 06-27-2019 End: 09-16-2019 Prednisone 10 mg tablet Discontinued 10 mg PO daily June 27, 2019 12:00am September 16, 2019 9:52am take 4 tabs for three days, then 3 tabs for three days, then 2 tabs for three days, then 1 tab for 3 days Start: 06-25-2019 End: 06-27-2019 take 2 tablets by mouth once daily at mealtime Prednisone 20 MG tablet Discontinued 40 mg PO DAILY June 25, 2019 12:00am June 27, 2019 1:40pm With food Start: 06-25-2019 End: 06-27-2019 take 40 mg by mouth once daily at mealtime Prednisone Discontinued 40 MG PO DAILY June 24, 2019 11:00pm June 27, 2019 12:40pm With food Start: 01-10-2019 End: 04-06-2019 Prednisone 10 mg tablet Discontinued 10 mg PO daily 30 0 January 10, 2019 1:00am April 06, 2019 4:50pm take 4 tabs for three days, then 3 tabs for three days, then 2 tabs for three days, then 1 tab for 3 days Start: 09-27-2018 End: 10-07-2018 Start: 09-23-2018 End: 10-07-2018 take 2 tablets by mouth once daily at mealtime Prednisone 20 MG tablet Discontinued 40 mg PO DAILY September 23, 2018 12:00am October 02, 2018 12:00am October 06, 2018 12:06am With food Start: 09-23-2018 End: 10-06-2018 take 40 mg by mouth once daily at mealtime Prednisone Discontinued 40 MG PO DAILY September 22, 2018 11:00pm October 05, 2018 11:06pm With food Start: 04-06-2018 End: 12-30-2018 take 3 tablets by mouth once daily at mealtime Prednisone 20 mg tablet Discontinued 60 mg PO daily April 06, 2018 1:00am December 30, 2018 11:54am administer with food or milk Start: 04-06-2018 End: 12-30-2018 take 60 mg by mouth once daily at mealtime Prednisone Discontinued 60 MG PO daily April 06, 2018 12:00am December 30, 2018 10:54am administer with food or milk Start: 01-26-2018 End: 02-08-2018 Prednisone 10 mg tablet Discontinued 10 mg PO daily 30 January 26, 2018 1:00am February 08, 2018 11:20am take 4 tabs for three days, then 3 tabs for three days, then 2 tabs for three days, then 1 tab for 3 days Start: 01-18-2018 End: 02-08-2018 take 3 tablets by mouth once daily at mealtime Prednisone 20 mg tablet Discontinued 60 mg PO daily 15 January 18, 2018 1:00am February 08, 2018 11:20am administer with food or milk Start: 01-18-2018 End: 02-08-2018 take 60 mg by mouth once daily at mealtime Prednisone Discontinued 60 MG PO daily January 18, 2018 12:00am February 08, 2018 10:20am administer with food or milk Start: 04-16-2017 End: 04-20-2017 Start: 09-22-2016 End: 10-04-2016 PREDNISONE 10 MG TABS Take 4 tabs by mouth for 3 days, then 3 tabs by mouth for 3 days, then 2 tabs by mourth for 3 days, then 1 tab by mouth for 3 days. PREDNISONE [id number] Roya Oliveira VASCULAR SURGEON Start: 09-15-2016 End: 09-20-2016 take 3 tablets by mouth once daily PREDNISONE 20 MG TABS Take 3 tablets by mouth daily for 5 days. PREDNISONE [id number] Roya Oliveira VASCULAR SURGEON Start: 09-01-2016 End: 09-12-2016 Start: 09-01-2016 End: 09-12-2016 take 2 tablets by mouth once daily, then take 1 tablet by mouth once daily, then take 0.5 tablet by mouth once daily PredniSONE 20 MG Oral Tablet 1 (one) Tablet UAD for 16 days Refills: 0 Ordered: 12-Sep-2016 Amairani Bravo RN Start : 01-Sep-2016 End : 12-Sep-2016 Inactive Comments: 2 a d for 5 d, 1 a d for 5d, 1/2 a d for 6d Comment on above: 2 a d for 5 d, 1 a d for 5d, 1/2 a d for 6d rifAXIMin 550 mg oral tablet (20 sources) Rifamycin Antibacterial Start: 06-22-2017 End: 12-14-2017 0.25 mg, 0.5 mg dose 1.5 ml semaglutide 1.34 mg/ml pen injector (20 sources) Start: 04-28-2022 End: 08-20-2022 Start: 11-01-2020 End: 05-06-2021 Start: 08-07-2020 End: 05-29-2021 Semaglutide (Ozempic) 1 mg/d ose (2 mg/1.5 mL) pen injector Discontinued 1 MG SC MO August 06, 2020 11:00pm May 29, 2021 8:57am Start: 07-09-2020 Ozempic (0.25 or 0.5 MG/DOSE) 2 MG/1.5ML Subcutaneous Solution Pen-injector 0.25mg Solution Pen-injector 0.25 mg qweek for 4weeks then 0.5 mg qweek for 4weeks for 90 days Quantity: 3 {Box} Refills: 3 Ordered: 11-Jul-2020 Elin Reynolds DO, DO, Kathleen Start : 11-Jul-2020 Active Comments: Mail order. 0.25 mg qweek for 4weeks then 0.5 mg qweek for 4weeks Comment on above: 0.25 mg qweek for 4w eeks then 0.5 mg qweek for 4weeks Mail order. Mail order. 0.25 mg qweek for 4weeks then 0.5 mg qweek for 4weeks Semaglutide (Ozempic) 1 mg/dose (2 mg/1.5 mL) pen injector (2 sources) Start: 08-08-19 End: 05-30-19 Semaglutide (Ozempic) 1 mg/dose (2 mg/1.5 mL) pen injector Discontinued 1 mg SC MO August 07, 2020 12:00am May 29, 2021 9:57am Stool Softener (19 sources) sucralfate 1000 mg oral tablet (2 sources) Aluminum Complex Start: 04-27-19 End: 08-30-19 take 1 tablet by mouth every six hours Sucralfate (Carafate) 1 gram tablet Discontinued 1 g PO EVERY 6 HOURS 60 0 April 26, 2024 12:00am August 29, 2024 9:21am sulfamethoxazole 800 mg / trimethoprim 160 mg oral tablet (11 sources) Dihydrofolate Reductase Inhibitor Antibacterial, Sulfonamide Antimicrobial Start: 10-19-19 End: 02-05-20 Sulfamethoxazole-Tr imethoprim (Bactrim Ds) 800-160 mg tablet Discontinued 1 {tbl} PO TWICE A DAY 10 October 18, 2021 12:00am February 04, 2022 10:56am tiZANidine 4 mg oral tablet (20 sources) Central alpha-2 Adrenergic Agonist Start: 09-11-19 End: 11-07-19 Start: 04-28-2022 End: 08-20-2022 Start: 04-28-2019 End: 07-08-2019 traMADol hydrochloride 50 mg oral tablet (20 sources) Opioid Agonist Start: 09-27-2018 End: 03-10-2019 Start: 01-15-2017 End: 06-23-2017 take 1 tablet by mouth once daily TraMADol HCl 50 MG Oral Tablet 1 Tablet qd for 0 days Quantity: 7 {Tablet} Refills: 0 Ordered: 23-Jun-2017 Warner Herbert Start : 15-Jan-2017 End : 23-Jun-2017 Inactive Comments: seven Start: 01-08-2016 End: 09-15-2016 TRAMADOL HCL 50 MG TABS will y TRAMADOL HCL [id number] Chanell Saunders Magi LOYOLA Comment on above: seven zolpidem tartrate 10 mg oral tablet (20 sources) gamma-Aminobutyri c Acid-ergic Agonist Start: 07-09-2020 End: 04-09-2023 take 1 tablet by mouth at bedtime as needed for sleep Zolpidem (Ambien) 10 mg Tablet Discontinued 10 mg PO AT BEDTIME as needed for Sleep October 05, 2020 12:00am April 09, 2023 11:18am Start: 07-08-2019 take 1 tablet by pattie th once daily at bedtime as needed Ambien 10 MG Oral Tablet 1 Tablet qhs/prn for 0 days Quantity: 30 {Tablet} Refills: 0 Ordered: 08-Jul-2019 Elin Reynolds DO, DO, Kathleen Start : 08-Jul-2019 Active Comments: thirty Start: 01-28-2018 take 1 tablet by pattie th once daily at bedtime as needed Ambien 10 MG Oral Tablet 1 Tablet qhs/prn for 0 days Quantity: 30 {Tablet} Refills: 0 Ordered: 28-Jan-2018 Elin Reynolds DO, DO, Kathleen Start : 28-Jan-2018 Active Comments: ksenia Start: 01-15-2017 End: 02-14-2017 take 1 tablet by mouth once daily Ambien 10 MG Oral Tablet 1 Tablet qd for 30 days Quantity: 30 {Tablet} Refills: 0 Ordered: 15-Jan-2017 Elin Reynolds DO, DO, Kathleen Start : 15-Jan-2017 End : 14-Feb-2017 Inactive Comments: OARS: [id number] Start: 01-08-2016 End: 09-15-2016 AMBIEN 10 MG TABS once daily ZOLPIDEM TARTRATE [id number] Mirlande Santiago Ambien 10 MG Ora l Tablet Quantity: 0 Refills: 0 Ordered: 28-Dec-2012 DO Active Comment on above: OARS: [id number] (15 sources) Problems Active Problems Problem Classification Problem Date Documented Da te Episodic/Chronic Adjustment disorders (20 sources) Reaction to severe stress, unspecified; Translations: [Stress-related problem] 12-14-2017 Chronic Administrative/social admission (20 sources) Counseling procedure with explicit context; Translations: [Patient encounter status] 12-14-2017 Episodic Anxiety disorders (20 sources) Anxiety; Translations: [Anxiety] 12-14-2017 Chronic Asthma (20 sources) Moderate persistent asthma; Translations: [Exacerbation of asthma] Onset: 6 Resolved: 7 11-06-2016 Chronic Comment on above: add mucinex broaden coverage restart steriods and slower wean check cxr for pneumonia if stillnt bgetting better owr worsen then hospital now some improvement but not completely donnell, has been on zpak, and levaquinx [address] Leblanc in past will have go againon steroid, levoquin and mucinex and uses nebulizer Tid using dulear bid --- sees carla aquino -- DR Leblanc-- last PFT 10/03s--- sees pulbronwyn aquino -- DR Leblanc-- last PFT 10/03bad flares -- has eosinophils hi and being managed by pulm Asthma (20 sources) Asthma Onset: 7 Biliary tract disease (5 sources) Primary sclerosing cholangitis; Translations: [Other cholangitis] Onset: 3 Chronic Calculus of urinary tract (2 sources) Kidney stone; Translations: [Calculus of kidney] Onset: 3 Episodic Cardiac dysrhythmias (12 sources) Intermittent palpitations; Translations: [Palpitations] 11-27-2020 Episodic Chronic obstructive pulmonary disease and bronchiectasis (20 sources) Chronic obstructive lung disease; Translations: [COPD (chronic obstructive pulmonary disease)] Onset: 3 12-14-2017 Chronic Chronic obstructive pulmonary disease and bronchiectasis (20 sources) Bronchitis; Translations: [Bronchitis] Resolved: 9 03-13-2016 Episodic Comment on above: improved with levaqu in (compleetd 08/22) and prednsione taper hma since age 32Frequent exacerbations with PNA in the pastGetting PFT and seeing DR Kramer 02/08/16.On Mometasone/formeterol BID Complication of device; implant or graft (13 sources) Arteriosclerosis of coronary artery bypass graft; Translations: [Atherosclerosis of coronary artery bypass graft(s), unspecified, with unspecified angina pectoris] Chronic Comment on above: non obstructive C 2007 Coronary atherosclerosis and other heart disease (20 sources) Coronary atherosclerosis and other heart disease Onset: 7 Diabetes mellitus with complications (20 sources) Type II diabetes mellitus uncontrolled; Translations: [Uncontrolled type II diabetes mellitus] 07-09-2020 Chronic Diabetes mellitus without complication (20 sources) Type 2 diabetes mellitus; Translations: [Type II diabetes mellitus, well controlled] Onset: 5 12-28-2020 Chronic Diabetes mellitus without complication (20 sources) Abnormal glucose tolerance test; Translations: [Hyperglycemia] 12-14-2017 Episodic Comment on above: recent poor eating, stressors, adn pred with asthma flare--- will chg back to good eaign habits and exercise -- and carson before meds recent poor eating, stressors, adn predisone with asthma flare--- will chg back to good eaign habits and exercise -- and carson before meds recent poor eating, stressors, adn predisone with asthma flare--- will chg back to good eaign habits and exercise -- and carson before meds-- she is aware rx if not beter next visit spring 2019 Diabetes mellitus without complication (17 sources) Diabetes mellitus without complication Disorders of lipid metabolism (20 sources) Hyperlipidemia; Translations: [Hyperlipidemia, mild] Onset: 6 02-14-2016 Chronic Comment on above: on statin 40mg inste ad of increasing pt willl work on diet and exercise and look into fish oil for TG on statin --increase to 80mg E Codes: Fall (20 sources) Fall in home; Translations: [Fall in home, initial encounter] Resolved: 8 12-14-2017 Episodic Esophageal disorders (20 sources) Gastroesophageal reflux disease; Translations: [Chronic GERD] Onset: 6 02-14-2016 Chronic Esophageal disorders (20 sources) Esophageal disorders Onset: 7 Essential hypertension (20 sources) Hypertensive disorder; Translations: [Benign hypertension] Onset: 6 02-14-2016 Chronic Essential hypertension (1 source) Essential hypertension Onset: 7 Gastritis and duodenitis (2 sources) Gastritis; Translations: [Gastritis, unspecified, without bleeding] 04-26-2024 Episodic Genitourinary symptoms and ill-defined conditions (20 sources) Dysuria; Translations: [Dysuria] 12-14-2017 Episodic Comment on above: UA LE moderateBlood largeSending culture, start levaquin (has bronchitis)3 days:frequency, dysuria, nocturia, abdominal pain and pressure, left flank, chils , no fever. Headache, including migraine (20 sources) Migraine; Translations: [Migraines] 12-14-2017 Chronic Headache; including migraine (2 sources) Headache; Translations: [Headache] 11-30-2023 Episodic Hepatitis (4 sources) Nonalcoholic steatohepatitis (STEVEN); Translations: [Nonalcoholic steatohepatitis] Onset: 3 03-01-2024 Chronic Immunizations and screening for infectious disease (20 sources) Need for prophylactic vaccination and inoculation against influenza; Translations: [Needs influenza immunization] 07-08-2019 Episodic Inflammation; infection of eye (except that caused by tuberculosis or sexually transmitteddisease) (20 sources) Conjunctivitis; Translations: [Conjunctivitis] 05-10-2018 Episodic Malaise and fatigue (20 sources) Fatigue; Translations: [Fatigue] 06-25-2020 Episodic Mycoses (20 sources) Candidiasis of mouth; Translations: [Mycosis] Resolved: 1 05-10-2018 Episodic Nausea and vomiting (2 sources) Vomiting; Translations: [Vomiting, unspecified] 04-26-2024 Episodic Nonspecific chest pain (12 sources) Chest pain; Translations: [Chest pain, unspecified] 11-27-2020 Episodic Nutritional deficiencies (20 sources) Vitamin D deficiency; Translations: [Vitamin D deficiency] 07-09-2020 Chronic Osteoarthritis (4 sources) Osteoarthritis of left hip joint; Translations: [Unilateral primary osteoarthritis, left hip] 04-09-2023 Chronic Other acquired deformities (1 source) Spondylolisthesis, site unspecified; Translations: [Spondylolisthesis, site unspecified] Onset: 8 Episodic Other acquired deformities (1 source) Acquired spondylolisthesis; Translations: [Acquired spondylolisthesis] Episodic Other aftercare (20 sources) Drug therapy finding; Translations: [Current use of steroid medication] 07-08-2019 Episodic Other circulatory disease (20 sources) Vascular disorder; Translations: [Vascular disease] 12-14-2017 Episodic Other circulatory disease (1 source) H/O: cardiovascular disease; Translations: [Personal history of unspecified circulatory disease] Episodic Other circulatory disease (1 source) Personal history of other diseases of the circulatory system; Translations: [Personal history of other diseases of the circulatory system] Onset: 3 Episodic Other connective tissue disease (20 sources) Muscle pain; Translations: [Myalgia] Resolved: 8 12-14-2017 Episodic Other connective tissue disease (20 sources) Spasm; Translations: [Muscle spasm] 07-08-2019 Episodic Other connective tissue disease (4 sources) Trigger finger; Translations: [Trigger finger] 08-09-2020 Episodic Comment on above: R little finger Other connective tissue disease (20 sources) Triggering of digit; Translations: [Trigger finger] 05-06-2021 Episodic Other connective tissue disease (1 source) Pain in left lower limb; Translations: [Pain in limb] Episodic Other connective tissue disease (1 source) History of osteopenia; Translations: [Personal history of other musculoskeletal disorders] Episodic Other connective tissue disease (1 source) Personal history of other diseases of the musculoskeletal system and connective tissue; Translations: [Personal history of diseases of the ms sys and conn tiss] Onset: 3 Episodic Other ear and sense organ disorders (14 sources) Disorder of head; Translations: [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] 11-27-2020 Episodic Other endocrine disorders (20 sources) Disorder of endocrine system; Translations: [Hormone imbalance] 12-28-2020 Episodic Other gastrointestinal disorders (20 sources) Irritable bowel syndrome with diarrhea; Translations: [Irritable bowel syndrome with diarrhea] 12-14-2017 Chronic Other gastrointestinal disorders (20 sources) Mass of pancreas; Translations: [Mass of pancreas] 12-14-2017 Episodic Comment on above: being followed Other gastrointestinal disorders (1 source) H/O: liver disease; Translations: [Personal history of other diseases of digestive system] Episodic Other gastrointestinal disorders (1 source) History of gastroesophageal reflux disease; Translations: [Personal history of other diseases of digestive system] Episodic Other gastrointestinal disorders (1 source) Personal history of other diseases of the digestive system; Translations: [Personal history of other diseases of the digestive system] Onset: 3 Episodic Other gastrointestinal disorders (4 sources) Incontinence of feces; Translations: [Full incontinence of feces] 01-27-2024 Episodic Other liver diseases (1 source) Fatty (change of) liver, not elsewhere classified; Translations: [Fatty (change of) liver, not elsewhere classified] Onset: 3 Chronic Other lower respiratory disease (20 sources) Wheezing; Translations: [Wheeze] Resolved: 8 12-14-2017 Episodic Other lower respiratory disease (20 sources) Cough; Translations: [Cough] Resolved: 8 12-14-2017 Episodic Other lower respiratory disease (12 sources) Dyspnea on exertion; Translations: [Other forms of dyspnea] 11-28-2020 Episodic Other lower respiratory disease (2 sources) Dyspnea; Translations: [Shortness of breath] 11-30-2023 Episodic Other nervous system disorders (20 sources) Other chronic pain; Translations: [Chronic pain] 07-08-2019 Chronic Comment on above: s/p back surgery -- dr vicente hamilton from [facility] -- Other non-traumatic joint disorders (20 sources) Shoulder pain; Translations: [Acute pain of left shoulder] Resolved: 8 12-14-2017 Episodic Other non-traumatic joint disorders (2 sources) Pain in left knee; Translations: [Left knee pain] 04-09-2023 Episodic Other non-traumatic joint disorders (2 sources) Hip pain; Translations: [Pain in left hip] 04-09-2023 Episodic Other nutritional; endocrine; and metabolic disorders (20 sources) Body mass index 30+ - obesity; Translations: [BMI 33.0-33.9,adult] Resolved: 3 12-14-2017 Chronic Other nutritional; endocrine; and metabolic disorders (12 sources) Obesity; Translations: [Obesity, unspecified] 11-27-2020 Chronic Other nutritional; endocrine; and metabolic disorders (2 sources) Obesity, unspecified; Translations: [Obesity, unspecified] 08-14-2022 Chronic Other nutritional; endocrine; and metabolic disorders (1 source) H/O: diabetes mellitus; Translations: [Personal history of other endocrine, metabolic, and immunity disorders] Episodic Other nutritional; endocrine; and metabolic disorders (1 source) Personal history of other endocrine, nutritional and metabolic disease; Translations: [Personal history of endo, nutritional and metabolic disease] Onset: 3 Episodic Other skin disorders (12 sources) Excessive sweating; Translations: [Generalized hyperhidrosis] 11-28-2020 Episodic Other upper respiratory disease (12 sources) Seasonal allergic rhinitis; Translations: [Other seasonal allergic rhinitis] 11-27-2020 Chronic Other upper respiratory disease (4 sources) Other seasonal allergic rhinitis; Translations: [Allergic rhinitis, cause unspecified] Chronic Other upper respiratory disease (20 sources) Pain in throat Episodic Other upper respiratory infections (20 sources) Sinusitis; Translations: [Sinusitis] Resolved: 9 09-23-2019 Chronic Other upper respiratory infections (20 sources) Sore throat symptom; Translations: [Common cold] Resolved: 9 12-14-2017 Episodic Comment on above: Common cold in an as thmatic. Will treat with steroid and antibiotic if needed. Pancreatic disorders (not diabetes) (1 source) Other specified diseases of pancreas; Translations: [Other specified diseases of pancreas] Onset: 3 Episodic Residual codes; unclassified (20 sources) Influenza-like symptoms; Translations: [Flu-like symptoms] Resolved: 8 12-14-2017 Episodic Residual codes; unclassified (20 sources) Needs influenza immunization; Translations: [Need for prophylactic vaccination and inoculation against influenza (Renamed from Need for immunization against influenza)] 12-14-2017 Episodic Residual codes; unclassified (20 sources) Generalized aches and pains; Translations: [Body aches] Resolved: 8 12-14-2017 Episodic Residual codes; unclassified (20 sources) Non-smoker; Translations: [Non-smoker] 07-08-2019 Episodic Residual codes; unclassified (20 sources) Postmenopausal state; Translations: [Postmenopausal (Renamed from Postmenopausal status)] 08-06-2020 Episodic Residual codes; unclassified (20 sources) Flushing; Translations: [Hot flashes] 12-28-2020 Episodic Residual codes; unclassified (12 sources) H/O Spinal surgery; Translations: [Other specified postprocedural states] 11-27-2020 Episodic Residual codes; unclassified (12 sources) Past history of procedure; Translations: [Other specified postprocedural states] 11-27-2020 Episodic Residual codes; unclassified (1 source) H/O: Disorder; Translations: [Personal history of other specified diseases] Episodic Residual codes; unclassified (1 source) Personal history of other specified conditions; Translations: [Personal history of other specified conditions] Onset: 3 Episodic Residual codes; unclassified (2 sources) Viral syndrome; Translations: [Flu-like symptoms] Resolved: 8 12-14-2017 Episodic Screening and history of mental health and substance abuse codes (2 sources) H/O: anxiety state; Translations: [Personal history of other mental disorders] Onset: 3 Episodic Spondylosis; intervertebral disc disorders; other back problems (20 sources) Sacroiliac joint pain; Translations: [Spinal stenosis of lumbar region] Onset: 7 Resolved: 7 06-01-2016 Episodic Comment on above: gave referral to see another pain specialist - Ajit Monreal at [facility] Spondylosis; intervertebral disc disorders; other back problems (2 sources) Spondylosis; intervertebral disc disorders; other back problems Onset: 7 Sprains and strains (2 sources) Strain of calf muscle; Translations: [Strain of other muscle(s) and tendon(s) at lower leg level, left leg, initial encounter] 11-18-2023 Episodic Unclassified (20 sources) Chronic pain; Translations: [Other chronic pain] 12-14-2017 Chronic Comment on above: s/p back surgery -- dr vicente hamilton from [facility] -- Unclassified (20 sources) Breast neoplasm screening status; Translations: [Abnormal findings on diagnostic imaging of other abdominal regions, including retroperitoneum] 12-14-2017 Episodic Unclassified (20 sources) Insomnia; Translations: [Needs influenza immunization] Resolved: 8 12-14-2017 Episodic Unclassified (3 sources) Other biomechanical lesions of lumbar region / M99.83(ICD-10) Onset: 8 Unclassified (3 sources) Low back pain / M54.5(ICD-10) Onset: 7 Unclassified (1 source) Spondylolisthesis, lumbosacral region / M43.17(ICD-10) Onset: 8 Unclassified (1 source) Other intervertebral disc degeneration, lumbar region / M51.36(ICD-10) Onset: 8 Unclassified (2 sources) Radiculopathy, lumbar region / M54.16(ICD-10) Onset: 7 Unclassified (1 source) Spondylolisthesis, lumbar region / M43.16(ICD-10) Onset: 8 Unclassified (2 sources) Spondylolisthesis, site unspecified / M43.10(ICD-10) Onset: 8 Unclassified (1 source) Fusion of spine, lumbosacral region / M43.27(ICD-10) Onset: 8 Unclassified (2 sources) Spinal stenosis, lumbar region without neurogenic paul / M48.061(ICD-10) Onset: 7 Unclassified (1 source) Postlaminectomy syndrome, not elsewhere classified / M96.1(ICD-10) Onset: 7 Unclassified (3 sources) Spinal stenosis, lumbar region / M48.06(ICD-10) Onset: 7 Unclassified (2 sources) Encounter for other preprocedural examination / Z01.818(ICD-10) Onset: 7 Unclassified (1 source) Encounter for other specified special examinations / Z01.89(ICD-10) Onset: 7 Unclassified (1 source) Prsnl hx of TIA (TIA), and cereb infrc w/o resid deficits / Z86.73(ICD-10) Onset: 7 Unclassified (1 source) Coronary angioplasty status / Z98.61(ICD-10) Onset: 7 Unclassified (1 source) Panic disorder [episodic paroxysmal anxiety] / F41.0(ICD-10) Onset: 7 Unclassified (1 source) Obesity, unspecified / E66.9(ICD-10) Onset: 7 Unclassified (1 source) Body mass index (BMI) 34.0-34.9, adult / Z68.34(ICD-10) Onset: 7 Unclassified (1 source) Fusion of spine, lumbar region / M43.26(ICD-10) Onset: 7 Unclassified (20 sources) BMI 33.0-33.9,adult Unclassified (20 sources) Unclassified (20 sources) BMI 34.0-34.9,adult Unclassified (20 sources) Non-smoker; Translations: [Non-smoker] 12-14-2017 Unclassified (20 sources) Stress reaction, emotional Unclassified (20 sources) Hypertension, benign Unclassified (20 sources) BMI 35.0-35.9,adult Unclassified (20 sources) Encounter for screening mammogram for breast cancer (Renamed from Encounter for screening mammogram for malignant neoplasm of breast) Unclassified (20 sources) Nutritional counseling Unclassified (20 sources) Thrush Unclassified (20 sources) Sinusitis, acute Unclassified (20 sources) BMI 36.0-36.9,adult Unclassified (20 sources) Drug therapy finding; Translations: [Current use of steroid medication] 07-08-2019 Unclassified (20 sources) BMI 37.0-37.9, adult Unclassified (20 sources) Yeast infection Past or Other Problems Problem Classification Problem Date Documented Date Episodic/Chronic Abdominal pain (20 sources) Generalized abdominal pain; Translations: [Abdominal pain, diffuse] Onset: 05-03-2024 Resolved: 12-14-2017 12-14-2017 Episodic Chronic obstructive pulmonary disease and bronchiectasis (20 sources) Chronic obstructive pulmonary disease and bronchiectasis External Injury - Fall (20 sources) Fall in home; Translations: [Fall in home, initial encounter] Resolved: 12-14-2017 12-14-2017 Other lower respiratory disease (2 sources) Paroxysmal nocturnal dyspnea; Translations: [Dyspnea, unspecified] Onset: 11-14-2016 11-14-2016 Episodic Otitis media and related conditions (14 sources) Serous otitis media; Translations: [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] Onset: 09-15-2016 09-15-2016 Episodic Unclassified (1 source) Other biomechanical lesions of lumbar region; Translations: [Other biomechanical lesions of lumbar region] Onset: 07-14-2017 Unclassified (1 source) Spinal stenosis, lumbar region without neurogenic paul; Translations: [Spinal stenosis, lumbar region without neurogenic paul] Onset: 11-24-2016 Unclassified (20 sources) Abnormal CT of the abdomen Unclassified (20 sources) Abdominal pain, diffuse Unclassified (20 sources) Fall in home, initial encounter Unclassified (20 sources) Acute pain of left shoulder Unclassified (20 sources) Body aches Unclassified (20 sources) Flu-like symptoms Unclassified (20 sources) Wheeze Unclassified (20 sources) Pregnancies (); Translations: [Pregnancies ()] 12-14-2017 Comment on above: 3. Unclassified (20 sources) Cold virus Unclassified (20 sources) Deliveries (Parity); Translations: [Deliveries (Parity)] 12-14-2017 Comment on above: 2. Unclassified (20 sources) Abortions/Miscarriage s; Translations: [Abortions/Miscarriag es] 12-14-2017 Comment on above: 1. Unclassified (20 sources) Non-smoker; Translations: [Non-smoker] 12-14-2017 Unclassified (20 sources) Patient encounter status; Translations: [Encounter for screening mammogram for breast cancer (Renamed from Encounter for screening mammogram for malignant neoplasm of breast)] 05-10-2018 Unclassified (20 sources) Unspecified Diagnosis 07-30-2018 Unclassified (20 sources) Muscle spasm Unclassified (15 sources) Abortions/Miscarriage s; Translations: [Abortions/Miscarriag es] 07-08-2019 Comment on above: 1. Unclassified (15 sources) Deliveries (Parity); Translations: [Deliveries (Parity)] 07-08-2019 Comment on above: 2. Unclassified (15 sources) Pregnancies (); Translations: [Pregnancies ()] 07-08-2019 Comment on above: 3. Unclassified (3 sources) Postmenopausal (Renamed from Postmenopausal status) Unclassified (1 source) Trigger finger Urinary tract infections (20 sources) Urinary tract infectious disease; Translations: [UTI (urinary tract infection)] Onset: 02-23-2024 12-14-2017 Episodic Comment on above: UC : ecoli 01/31/16, sensitive to levaquin, finished antibiotic 02/06/16Improved Repeat urine analysis: 02/14/16 Viral infection (20 sources) Severe acute respiratory syndrome; Translations: [SARS (severe acute respiratory syndrome)] Onset: 10-04-2020 12-28-2020 Episodic Results Test Name Value Interpretation Reference Range Facility CBC W/Diff, Automatedon 10- Absolute Lymph 2.36 X10 3/uL Normal 0.83-4.51 [facility] Comment on above: Performed By: #### L 503.6550, L506.1001, L501.9520, L501.9985, L500.4100, L100.0100, L500.4050, L503.0106, L502.0500 ####[facility] [id number] [facility] [place], [address] Absolute Neut 6.2 X10 3/uL Normal 2.0-7.7 [facility] Comment on above: Performed By: #### L 503.6550, L506.1001, L501.9520, L501.9985, L500.4100, L100.0100, L500.4050, L503.0106, L502.0500 ####[facility] [id number] [facility] [place], [address] Basophils/100 WBC (Bld) 0.2 % Normal 0-1 [facility] Comment on above: Performed By: #### L 503.6550, L506.1001, L501.9520, L501.9985, L500.4100, L100.0100, L500.4050, L503.0106, L502.0500 ####[facility] [id number] [facility] [place], [address] Eosinophils/100 WBC (Bld) 0.0 % Normal 0-5 [facility] Comment on above: Performed By: #### L 503.6550, L506.1001, L501.9520, L501.9985, L500.4100, L100.0100, L500.4050, L503.0106, L502.0500 ####[facility] [id number] [place], [place], [id number] Erythrocyte distribution width (RBC) [Ratio] 14.1 % Normal 11.6-14.6 [facility] Comment on above: Performed By: #### L 503.6550, L506.1001, L501.9520, L501.9985, L500.4100, L100.0100, L500.4050, L503.0106, L502.0500 ####[facility] [facility] [address] [place], [address] Hematocrit (Bld) [Volume fraction] 42.5 % Normal 37-47 [facility] Comment on above: Performed By: #### L 503.6550, L506.1001, L501.9520, L501.9985, L500.4100, L100.0100, L500.4050, L503.0106, L502.0500 ####[facility] [address] [facility] [place], [address] Hemoglobin (Bld) [Mass/Vol] 13.4 g/dL Normal 12.0-15.0 [facility] Comment on above: Performed By: #### L 503.6550, L506.1001, L501.9520, L501.9985, L500.4100, L100.0100, L500.4050, L503.0106, L502.0500 ####[facility] [address] [place], [address] IG% 0.200 Normal 0.0-0.9 [facility] Comment on above: Result Comment: IG% - Immature Granulocytes (promyelocytes, myelocytes and metamyelocytes) > 1% indicates that a LEFT SHIFT is Present. Performed By: #### L 503.6550, L506.1001, L501.9520, L501.9985, L500.4100, L100.0100, L500.4050, L503.0106, L502.0500 ####[facility] [address] [place], [address] Lymphocytes/100 WBC (Bld) 25.8 % Normal 19-41 [facility] Comment on above: Performed By: #### L 503.6550, L506.1001, L501.9520, L501.9985, L500.4100, L100.0100, L500.4050, L503.0106, L502.0500 ####[facility] [address] [place], [address] MCH (RBC) [Entitic mass] 27.7 pg Normal 27.0-32.0 [facility] Comment on above: Performed By: #### L 503.6550, L506.1001, L501.9520, L501.9985, L500.4100, L100.0100, L500.4050, L503.0106, L502.0500 ####[facility] [address] [place], [address] MCHC (RBC) [Mass/Vol] 31.5 g/dL Low 32-36 [facility] Comment on above: Performed By: #### L 503.6550, L506.1001, L501.9520, L501.9985, L500.4100, L100.0100, L500.4050, L503.0106, L502.0500 ####[facility] [address] [place], [address] MCV (RBC) [Entitic vol] 87.8 fL Normal 81-99 [facility] Comment on above: Performed By: #### L 503.6550, L506.1001, L501.9520, L501.9985, L500.4100, L100.0100, L500.4050, L503.0106, L502.0500 ####[facility] [address] [place], [address] Monocytes/100 WBC (Bld) 5.6 % Normal 0-10 [facility] Comment on above: Performed By: #### L 503.6550, L506.1001, L501.9520, L501.9985, L500.4100, L100.0100, L500.4050, L503.0106, L502.0500 ####[facility] [address] [place], [address] Neutrophils/100 WBC (Bld) 68.2 % Normal 47-70 [facility] Comment on above: Performed By: #### L 503.6550, L506.1001, L501.9520, L501.9985, L500.4100, L100.0100, L500.4050, L503.0106, L502.0500 ####[facility] [address] [place], [place], [phone] Nucleated RBC (Bld) [#/Vol] 0 10*3/uL Normal 0-5 [facility] Comment on above: Performed By: #### L 503.6550, L506.1001, L501.9520, L501.9985, L500.4100, L100.0100, L500.4050, L503.0106, L502.0500 ####[facility] [address] [place], [place], [phone] Platelet mean volume (Bld) [Entitic vol] 9.9 fL Normal 6.2-12.0 [facility] Comment on above: Performed By: #### L 503.6550, L506.1001, L501.9520, L501.9985, L500.4100, L100.0100, L500.4050, L503.0106, L502.0500 ####[facility] [address] [place], [address] Platelets (Bld) [#/Vol] 337 10*3/uL Normal 150-450 [facility] Comment on above: Performed By: #### L 503.6550, L506.1001, L501.9520, L501.9985, L500.4100, L100.0100, L500.4050, L503.0106, L502.0500 ####[facility] [address] [place], [place], [phone] RBC (Bld) [#/Vol] 4.84 10*6/uL Normal 4.2-5.4 [facility] Comment on above: Performed By: #### L 503.6550, L506.1001, L501.9520, L501.9985, L500.4100, L100.0100, L500.4050, L503.0106, L502.0500 ####[facility] [address] [place], [place], [phone]) RDW SD 45.6 fl High 35.1-43.9 [facility] Comment on above: Performed By: #### L 503.6550, L506.1001, L501.9520, L501.9985, L500.4100, L100.0100, L500.4050, L503.0106, L502.0500 ####[facility] [address] [place], [place], [phone] WBC (Bld) [#/Vol] 9.1 10*3/uL Normal 4.4-11.0 [facility] Comment on above: Performed By: #### L 503.6550, L506.1001, L501.9520, L501.9985, L500.4100, L100.0100, L500.4050, L503.0106, L502.0500 ####[facility] [address] [place], [place], [phone] Comprehensive Metabolic Prof ilon 11-29-2024 Albumin [Mass/Vol] 4.1 g/dL Normal 3.4-4.8 [facility] Comment on above: Performed By: #### L 503.6550, L506.1001, L501.9520, L501.9985, L500.4100, L100.0100, L500.4050, L503.0106, L502.0500 ####[facility] [address] [place], [address] Albumin/Globulin [Mass ratio] 1.1 {ratio} Normal 0.9-2.4 [facility] Comment on above: Performed By: #### L 503.6550, L506.1001, L501.9520, L501.9985, L500.4100, L100.0100, L500.4050, L503.0106, L502.0500 ####[facility] [address] [place], [place], [phone]) ALK PHOS 137 U/L High 35-104 [facility] Comment on above: Performed By: #### L 503.6550, L506.1001, L501.9520, L501.9985, L500.4100, L100.0100, L500.4050, L503.0106, L502.0500 ####[facility] [address] [place], [address] ALT [Catalytic activity/Vol] 16 U/L Normal <=34 [facility] Comment on above: Performed By: #### L 503.6550, L506.1001, L501.9520, L501.9985, L500.4100, L100.0100, L500.4050, L503.0106, L502.0500 ####[facility] [address] [place], [address] AST [Catalytic activity/Vol] 21 U/L Normal <=31 [facility] Comment on above: Performed By: #### L 503.6550, L506.1001, L501.9520, L501.9985, L500.4100, L100.0100, L500.4050, L503.0106, L502.0500 ####[facility] [address] [place], [address] Bilirubin [Mass/Vol] 0.26 mg/dL Normal 0.00-1.30 [facility] Comment on above: Performed By: #### L 503.6550, L506.1001, L501.9520, L501.9985, L500.4100, L100.0100, L500.4050, L503.0106, L502.0500 ####[facility] [address] [place], [place], [phone]) BUN/CRE 18.8 RATIO Normal 10-20 [facility] Comment on above: Performed By: #### L 503.6550, L506.1001, L501.9520, L501.9985, L500.4100, L100.0100, L500.4050, L503.0106, L502.0500 ####[facility] [address] [place], [place], [phone] Calcium [Mass/Vol] 9.9 mg/dL Normal 7.6-11.0 [facility] Comment on above: Performed By: #### L 503.6550, L506.1001, L501.9520, L501.9985, L500.4100, L100.0100, L500.4050, L503.0106, L502.0500 ####[facility] [address] [place], [place], [phone]) Chloride [Moles/Vol] 102 mmol/L Normal 98-108 [facility] Comment on above: Performed By: #### L 503.6550, L506.1001, L501.9520, L501.9985, L500.4100, L100.0100, L500.4050, L503.0106, L502.0500 ####[facility] [address] [place], [place], [phone] CO2 [Moles/Vol] 26.4 mmol/L Normal 21.0-32.0 [facility] Comment on above: Performed By: #### L 503.6550, L506.1001, L501.9520, L501.9985, L500.4100, L100.0100, L500.4050, L503.0106, L502.0500 ####[facility] [address] [place], [place], [phone] Creatinine [Mass/Vol] 0.92 mg/dL Normal 0.70-1.20 [facility] Comment on above: Performed By: #### L 503.6550, L506.1001, L501.9520, L501.9985, L500.4100, L100.0100, L500.4050, L503.0106, L502.0500 ####[facility] [address] [place], [place], [phone] GAP 11 Normal 5-15 [facility] Comment on above: Performed By: #### L 503.6550, L506.1001, L501.9520, L501.9985, L500.4100, L100.0100, L500.4050, L503.0106, L502.0500 ####[facility] [address] [place], [place], [phone] GFR/1.73 sq M.predicted among non-blacks MDRD (S/P/Bld) [Vol rate/Area] 68 mL/min/{1.73_m2} Normal >60 [facility] Comment on above: Result Comment: mL/m in/1.73m2 CKD-EPI Creatinine Equation (2020) Performed By: #### L 503.6550, L506.1001, L501.9520, L501.9985, L500.4100, L100.0100, L500.4050, L503.0106, L502.0500 ####[facility] [address] [place], [address] Globulin (S) [Mass/Vol] 3.8 g/dL Normal 2.2-4.2 [facility] Comment on above: Performed By: #### L 503.6550, L506.1001, L501.9520, L501.9985, L500.4100, L100.0100, L500.4050, L503.0106, L502.0500 ####[facility] [address] [place], [address] Glucose [Mass/Vol] 107 mg/dL High 70-99 [facility] Comment on above: Performed By: #### L 503.6550, L506.1001, L501.9520, L501.9985, L500.4100, L100.0100, L500.4050, L503.0106, L502.0500 ####[facility] [address] [place], [address] Potassium [Moles/Vol] 4.4 mmol/L Normal 3.3-5.1 [facility] Comment on above: Performed By: #### L 503.6550, L506.1001, L501.9520, L501.9985, L500.4100, L100.0100, L500.4050, L503.0106, L502.0500 ####[facility] [address] [place], [address] Sodium [Moles/Vol] 139 mmol/L Normal 133-145 [facility] Comment on above: Performed By: #### L 503.6550, L506.1001, L501.9520, L501.9985, L500.4100, L100.0100, L500.4050, L503.0106, L502.0500 ####[facility] [address] [place], [address] T PROT 7.9 g/dL Normal 5.9-8.4 [facility] Comment on above: Performed By: #### L 503.6550, L506.1001, L501.9520, L501.9985, L500.4100, L100.0100, L500.4050, L503.0106, L502.0500 ####[facility] [address] [place], [place], [phone] Urea nitrogen [Mass/Vol] 17 mg/dL Normal 4-19 [facility] Comment on above: Performed By: #### L 503.6550, L506.1001, L501.9520, L501.9985, L500.4100, L100.0100, L500.4050, L503.0106, L502.0500 ####[facility] [address] [place], [place], [phone] Ferritinon 11-29-2024 Ferritin [Mass/Vol] 85 ng/mL Normal 22-378 [facility] Comment on above: Performed By: #### L 503.6550, L506.1001, L501.9520, L501.9985, L500.4100, L100.0100, L500.4050, L503.0106, L502.0500 ####[facility] [address] [place], [place], [phone] Hemoglobin A1con 11-29-2024 HbA1c (Bld) [Mass fraction] 6.9 % High <=5.6 [facility] Comment on above: Result Comment: Norm al < 5.7 % Prediabetic 5.7 - 6.4 % Diabetic >or= 6.5 % Please note range changes. Performed By: #### L 503.6550, L506.1001, L501.9520, L501.9985, L500.4100, L100.0100, L500.4050, L503.0106, L502.0500 ####[facility] [address] [place], [place], [phone] Lipid Profileon 11-29-2024 CHOL:HDL 3.55 Normal [facility] Comment on above: Performed By: #### L 503.6550, L506.1001, L501.9520, L501.9985, L500.4100, L100.0100, L500.4050, L503.0106, L502.0500 ####[facility] [address] [place], [address] Cholesterol [Mass/Vol] 175 mg/dL Normal <=200 [facility] Comment on above: Result Comment: Chol esterol level, Desirable <200 mg/dL Borderline high cholesterol 200-239 mg/dL High cholesterol >=240 mg/dL Recommendations of the NCEP Adult Treatment Panel for the following risk-cutoff thresholds for the [place] population. Performed By: #### L 503.6550, L506.1001, L501.9520, L501.9985, L500.4100, L100.0100, L500.4050, L503.0106, L502.0500 ####[facility] [address] [place], [place], [phone] Cholesterol in HDL [Mass/Vol] 49 mg/dL Normal [facility] Comment on above: Result Comment: Jayne onal Cholesterol Education Program (NCEP) guidelines: <40 mg/dL: Low HDL-cholesterol (major risk factor for CHD) >= 60 mg/dL: High HDL-cholesterol (negative risk factor for CHD) HDL-cholesterol is affected by a number of factors, e.g. smoking, exercise, hormones, sex and age. Performed By: #### L 503.6550, L506.1001, L501.9520, L501.9985, L500.4100, L100.0100, L500.4050, L503.0106, L502.0500 ####[facility] [address] [place], [address] Cholesterol in LDL [Mass/Vol] 92 mg/dL Normal [facility] Comment on above: Result Comment: Bord yevuco=877-524 mg/dL Higher Ayuo=352 mg/dL or greater Friedwald Equation for LDL-C Performed By: #### L 503.6550, L506.1001, L501.9520, L501.9985, L500.4100, L100.0100, L500.4050, L503.0106, L502.0500 ####[facility] [address] [place], [place], [phone]) Cholesterol in VLDL [Mass/Vol] 34 mg/dL Normal 5-40 [facility] Comment on above: Performed By: #### L 503.6550, L506.1001, L501.9520, L501.9985, L500.4100, L100.0100, L500.4050, L503.0106, L502.0500 ####[facility] [address] [place], [place], [phone](486) Triglyceride [Mass/Vol] 170 mg/dL Normal [facility] Comment on above: Result Comment: The drugs N-Acetylcysteine and Metamizole may falsely depress this assay. Normal range: <150 mg/dL Borderline High: 150-199 mg/dL High: 200-499 mg/dL Very High: >500 mg/dL Performed By: #### L 503.6550, L506.1001, L501.9520, L501.9985, L500.4100, L100.0100, L500.4050, L503.0106, L502.0500 ####[facility] [address] [place], [place], [phone](678) Microalbumin,Random Urineon 11-29-2024 MICROALBUMIN,UR < 12.0 Normal <20 mg/L [facility] Comment on above: Performed By: #### L 503.6550, L506.1001, L501.9520, L501.9985, L500.4100, L100.0100, L500.4050, L503.0106, L502.0500 ####[facility] [address] [place], [address] Thyroid Stim Hormone (TSH)on 11-29-2024 TSH 1.200 uIU/mL Normal 0.300-4.200 [facility] Comment on above: Performed By: #### L 503.6550, L506.1001, L501.9520, L501.9985, L500.4100, L100.0100, L500.4050, L503.0106, L502.0500 ####[facility] [address] [place], [address] Vitamin B12on 11-29-2024 Cobalamin (Vitamin B12) [Mass/Vol] 333 pg/mL Normal 180-914 [facility] Comment on above: Performed By: #### L 503.6550, L506.1001, L501.9520, L501.9985, L500.4100, L100.0100, L500.4050, L503.0106, L502.0500 ####[facility] [address] [place], [place], [phone] Vitamin D,25 Hydroxyon 11-29 Vitamin D 25-OH 62.3 ng/mL Normal 30-100 [facility] Comment on above: Result Comment: Jennifer min D Status Deficiency: <20 ng/mL (50nmol/L) Insufficiency: 20-30 ng/mL (50-75 nmol/L) Sufficiency: 30-100 ng/mL (75-250 nmol/L) Toxicity: >100 ng/mL (>250 nmol/L) Performed By: #### L 503.6550, L506.1001, L501.9520, L501.9985, L500.4100, L100.0100, L500.4050, L503.0106, L502.0500 ####[facility] [address] [place], [place], [address] Pulmonary Visit Reporton Pulmonary Visit Report [facility] of [address] [place] [address] OFFICE VISIT Date of Service: 08/29/24 MR#: [id number] Acct: [id number] Name: LETY SPENCER Rep #: [id number] : 1955 Provider: MOLLY Oliveira Age/Sex: 69/F Location: [facility] [place] [place].[facility]W Status: Signed Assessment and Plan Assessment and Plan (1) Asthma: Status: Chronic Qualifiers: Asthma severity: severe Asthma persistence: persistent Asthma complication type: uncomplicated Qualified Code(s): J45.50 - Severe persistent asthma, uncomplicated Comment: On Fasenra Plan: Stable, no signs of exacerbation of asthma today. No change in maintenance medications. No additional testing at this time, continue Fasenra. Contact the office with any signs of new or worsening symptoms. Follow-up in as previously scheduled. (2) Seasonal allergic rhinitis: Status: Chronic Qualifiers: Allergic rhinitis trigger: pollen Qualified Code(s): J30.1 - Allergic rhinitis due to pollen Plan: Symptomatically stable on the use of cetirizine, Flonase and Singulair. (3) Obesity: Status: Chronic Qualifiers: Obesity type: due to excess calories Obesity classification: adult class 1 (BMI 30 - 34.9) Serious obesity comorbidity presence: without serious comorbidity Body mass index: BMI 33.0-33.9 Qualified Code(s): E66.09 - Other obesity due to excess calories; Z68.33 - Body mass index [BMI] 33.0-33.9, adult Plan: Improving. The patient has lost 40 pounds over the past 5 years. Continue to encourage weight loss. Plan Details Additional Comments: This note was generated with [id number] dictation software. It may contain incorrect words, spelling, and punctuation that were not noted in checking the note before signing. Follow Up: 1 Year HPI 1 Y FU Chief Complaint: routine follow up HPI Comments Details: This patient presents to the office today for follow-up of her severe persistent asthma with seasonal allergic rhinitis. She is ambulatory and currently on room air. She has not recently been seen in the ED or urgent care for any respiratory illness. She has not required any antibiotics or prednisone for any breathing problems. If you recall, she is a lifelong never smoker. She is compliant with cetirizine and Singulair daily. She has not needed to use albuterol recently. She estimates that she probably uses it 3-4 times per month. She is compliant with Fasenra injections. She has not required prednisone for an exacerbation of asthma for years since being placed on Fasenra injections. She denies any difficulty with shortness of breath. She denies any cough, sputum production or hemoptysis. She denies any wheezing, chest tightness, chest pain or palpitations. She also denies any fever, chills or body aches. 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 Required: No DME Vendor: None Accompanied by: Self Is patient in pain?: Yes (low back pain) Pain scale (1-10): 5 Allergies buprenorphine (From Butrans) Allergy (Mild, Verified 08/29/24 09:18) Hives terbinafine Allergy (Mild, Verified 08/29/24 09:18) Rash codeine Allergy (Verified 08/29/24 09:18) Unknown nortriptyline Adverse Reaction (Mild, Verified 08/29/24 09:18) Upset Stomach omeprazole Adverse Reaction (Mild, Verified 08/29/24 09:18) Diarrhea Penicillins Adverse Reaction (Mild, Verified 08/29/24 09:18) yeast infection naproxen (From Naprosyn) Adverse Reaction (Verified 08/29/24 09:18) gi upset nortriptyline HCl (From Pamelor) Adverse Reaction (Verified 08/29/24 09:18) Upset Stomach Medications ???Medication ???Instructions ???Recorded ???Confirmed ???Type hydrochlorothiazide 25 mg tablet 12.5 mg PO DAILY diuretic/water 08/29/24 History pill simvastatin 40 mg tablet 40 mg PO QHS cholesterol 11/05/15 08/29/24 History lisinopril 10 mg tablet 10 mg PO QHS blood pressure 08/29/24 History albuterol sulfate 2.5 mg/3 mL 2.5 mg (3 mL) inhalation Q4H PRN 0 04/21/19 08/29/24 Rx (0.083 %) solution for nebulization Sob /Or Wheezing #180 vials nebulizers #1 ea 04/02/20 05/03/24 Rx metformin 500 mg tablet 500 mg PO BID 08/07/20 08/29/24 Hi story Handicap Placcard #1 ea 02/04/22 05/03/24 Rx albuterol sulfate 90 mcg/actuation 2 puff inhalation Q4H PRN 08/29/24 Rx aerosol inhaler (Ventolin HFA) shortness of breath or wheezing #1 device montelukast 10 mg tablet 10 mg PO QPM #90 tabs 08/26/23 (more content not included)... Normal [facility] Gastroenterology Visit Repor ton 05-03-2024 Gastroenterology Visit Report [facility] Gastroenterology [address] [place] [address] OFFICE VISIT Date of Service: 05/03/24 MR#: [id number] Acct: [id number] Name: LETY SPENCER Rep #: [id number] : 1955 Provider: MOLLY llamas Age/Sex: 69/F Location: [facility] [place] [place] Status: Signed Intake Vital Signs 04/26/24 18:56 05/03/24 15:04 Height 5 ft 4 in 5 ft 4 in Weight: 188 lb 4 oz BMI 32.3 BP 138/86 H Respiration 16 Pulse 89 Pulse Oximetry (%) 96 Oxygen Delivery Method room air Intake Visit Reasons: Follow Up Chief Complaint: follow-up 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 Required: No Is patient in pain?: Yes Allergies buprenorphine (From Butrans) Allergy (Mild, Verified 05/03/24 15:02) Hives terbinafine Allergy (Mild, Verified 05/03/24 15:02) Rash codeine Allergy (Verified 05/03/24 15:02) Unknown nortriptyline Adverse Reaction (Mild, Verified 05/03/24 15:02) Upset Stomach omeprazole Adverse Reaction (Mild, Verified 05/03/24 15:02) Diarrhea Penicillins Adverse Reaction (Mild, Verified 05/03/24 15:02) yeast infection naproxen (From Naprosyn) Adverse Reaction (Verified 05/03/24 15:02) gi upset nortriptyline HCl (From Pamelor) Adverse Reaction (Verified 05/03/24 15:02) Upset Stomach Medications ???Medication ???Instructions ???Recorded ???Confirmed ???Type hydrochlorothiazide 25 mg tablet 12.5 mg PO DAILY diuretic/water 05/03/24 History pill simvastatin 40 mg tablet 40 mg PO QHS cholesterol 11/05/15 05/03/24 History lisinopril 10 mg tablet 10 mg PO QHS blood pressure 05/03/24 History albuterol sulfate 2.5 mg/3 mL 2.5 mg (3 mL) inhalation Q4H PRN 0 04/21/19 05/03/24 Rx (0.083 %) solution for nebulization Sob /Or Wheezing #180 vials nebulizers #1 ea 04/02/20 05/03/24 Rx metformin 500 mg tablet 500 mg PO BID 08/07/20 05/03/24 Hi story Handicap Placcard #1 ea 02/04/22 05/03/24 Rx albuterol sulfate 90 mcg/actuation 2 puff inhalation Q4H PRN 05/03/24 Rx aerosol inhaler (Ventolin HFA) shortness of breath or wheezing #1 device montelukast 10 mg tablet 10 mg PO QPM #90 tabs 08/26/23 Rx amitriptyline 25 mg tablet 25 mg PO QHS esophageal spasm #90 03/01/24 05/03/24 Rx tabs cetirizine 10 mg capsule 10 mg PO QHS 04/26/24 05/03/24 His tory fluconazole 150 mg tablet 150 mg PO QWEEK PRN yeast #2 tabs 04/26/24 05/03/24 Rx ondansetron 4 mg disintegrating 4 mg PO Q8H PRN PRN Nausea #10 tab s 04/26/24 05/03/24 Rx tablet pantoprazole 40 mg tablet,delayed 40 mg PO DAILY 04/26/24 05/03/24 History release sucralfate 1 gram tablet (Carafate) 1 g PO Q6H #60 tabs 04/26/24 Rx Fasenra 30 mg/mL subcutaneous 30 mg subcut Q8W #1 mL 04/29/24 Rx syringe (benralizumab) Have you fallen in the past year?: No PFSH Medical History GERD (gastroesophageal reflux disease) Osteoarthritis of left hip Osteoarthritis of left knee Left knee pain Left hip pain COPD (chronic obstructive pulmonary disease) Atherosclerosis of coronary artery bypass graft of [place] heart with angina pectoris Excessive sweating History of TIA (transient ischemic attack) (2006) Obesity Type 2 diabetes mellitus COVID-19 virus detected (10/04/20) Essential hypertension Candidiasis of mouth Seasonal allergic rhinitis Exercise-induced bronchospasm Hyperlipidemia 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 Back pain, sacroiliac Asthma Surgical History History of left heart catheterization (05/27/07) History of back surgery History of tubal ligation History of tonsillectomy History of hysterectomy History of D C History of right breast biopsy Family History Mother Anxiety Hypertension kidney/renal disease High cholesterol Brother Heart disease Cancer Bladder Cancer CAD (coronary artery disease) Father Heart disease Myocardial infarction, Onset Age: 43 CAD (coronary artery disease) Brother CAD (coronary artery disease) Social History household members: spouse Smoking Status: Never smoker second hand exposure: No alcohol intake: never substance use type: does not use caffeine: No what type of physical activity do you participate in: none HPI HPI Chief Complaint: follow-up Details: LETY SPENCER, is a 69 F who presents to the office today for OV 03/01/2024 68y/o female presents for follow-up. PMH significant for HTN, Eosinophilic Asthma, GERD, Esophageal spasm (amitriptyline 50mg 2017), STEVEN (F4/S3), IBS, TIA. She has a history of positive pANCA, but no imaging or biopsy evidence o (more content not included)... Normal [facility] Urine Cultureon 04-28-2024 [facility] Presumptive E. coli [place] Count >100,000 Presumptive E. coli: REACTION Ampicillin Islt TONY >=32 Ampicillin+Sulbac Islt TONY 16 I Cefepime Islt TONY <=0.12 S cefTRIAXone Islt TONY <=0.25 S Ciprofloxacin Islt TONY <=0.06 S B-Lactamase Extended Susc Islt NEG Gentamicin Islt TONY <=1 S levoFLOXacin Islt TONY <=0.12 S Meropenem Islt TONY <=0.25 S Nitrofurantoin Islt TONY 32 S Pip+Tazo Islt TONY <=4 S TMP SMX Islt TONY <=20 S Normal [facility] Comment on above: Performed By: #### M 100.2200 #### [facility] [address] [place], [address] Absolute neutrophil countOrd ered By: ED PROVIDER on 04-26-2024 Neutrophils (Bld) [#/Vol] 12.3 10*3/uL High 2.0-7.7 [facility] Anion gap in Serum or Plasma Ordered By: ED PROVIDER on 04-26-2024 Anion gap [Moles/Vol] 14 mmol/L 5-15 [facility] BUN/creatinine ratioOrdered By: ED PROVIDER on 04-26-2024 Urea nitrogen/Creatinine [Mass ratio] 17.7 mg/mg 10-20 [facility] Basophil percentageOrdered B y: ED PROVIDER on 04-26-2024 Basophils/100 WBC (Bld) 0.2 % 0-1 [facility] Bilirubin Test strip Ql (U)O rdered By: Bruno Rae on 04-26-2024 Bilirubin Ql (U) Negative Negative [facility] Bilirubin, totalOrdered By: ED PROVIDER on 04-26-2024 Bilirubin [Mass/Vol] 0.38 mg/dL 0.00-1.30 [facility] CBC W/Diff, Automatedon 04-16 Absolute Lymph 3.73 X10 3/uL Normal 0.83-4.51 [facility] Comment on above: Performed By: #### L 100.0100, L500.4050, L501.2450 #### [facility] [address] [place], [address] Absolute Neut 12.3 X10 3/uL High 2.0-7.7 [facility] Comment on above: Performed By: #### L 100.0100, L500.4050, L501.2450 #### [facility] [address] [place], [address] Basophils/100 WBC (Bld) 0.2 % Normal 0-1 [facility] Comment on above: Performed By: #### L 100.0100, L500.4050, L501.2450 #### [facility] [address] [place], [address] Eosinophils/100 WBC (Bld) 0.0 % Normal 0-5 [facility] Comment on above: Performed By: #### L 100.0100, L500.4050, L501.2450 #### [facility] [address] [place], [address] Erythrocyte distribution width (RBC) [Ratio] 13.7 % Normal 11.6-14.6 [facility] Comment on above: Performed By: #### L 100.0100, L500.4050, L501.2450 #### [facility] [address] [place], [address] Hematocrit (Bld) [Volume fraction] 48.2 % High 37-47 [facility] Comment on above: Performed By: #### L 100.0100, L500.4050, L501.2450 #### [facility] [address] [place], [address] Hemoglobin (Bld) [Mass/Vol] 16.0 g/dL High 12.0-15.0 [facility] Comment on above: Performed By: #### L 100.0100, L500.4050, L501.2450 #### [facility] [address] [place], [address] IG% 0.500 Normal 0.0-0.9 [facility] Comment on above: Result Comment: IG% - Immature Granulocytes (promyelocytes, myelocytes and metamyelocytes) > 1% indicates that a LEFT SHIFT is Present. Performed By: #### L 100.0100, L500.4050, L501.2450 #### [facility] [address] [place], [address] Lymphocytes/100 WBC (Bld) 22.1 % Normal 19-41 [facility] Comment on above: Performed By: #### L 100.0100, L500.4050, L501.2450 #### [facility] [address] [place], [address] MCH (RBC) [Entitic mass] 28.5 pg Normal 27.0-32.0 [facility] Comment on above: Performed By: #### L 100.0100, L500.4050, L501.2450 #### [facility] [address] [place], [address] MCHC (RBC) [Mass/Vol] 33.2 g/dL Normal 32-36 [facility] Comment on above: Performed By: #### L 100.0100, L500.4050, L501.2450 #### [facility] [address] [place], [address] MCV (RBC) [Entitic vol] 85.8 fL Normal 81-99 [facility] Comment on above: Performed By: #### L 100.0100, L500.4050, L501.2450 #### [facility] [address] [place], [address] Monocytes/100 WBC (Bld) 4.2 % Normal 0-10 [facility] Comment on above: Performed By: #### L 100.0100, L500.4050, L501.2450 #### [facility] [address] [place], [address] Neutrophils/100 WBC (Bld) 73.0 % High 47-70 [facility] Comment on above: Performed By: #### L 100.0100, L500.4050, L501.2450 #### [facility] [address] [place], [address] Nucleated RBC (Bld) [#/Vol] 0 10*3/uL Normal 0-5 [facility] Comment on above: Performed By: #### L 100.0100, L500.4050, L501.2450 #### [facility] [address] [place], [address] Platelet mean volume (Bld) [Entitic vol] 9.5 fL Normal 6.2-12.0 [facility] Comment on above: Performed By: #### L 100.0100, L500.4050, L501.2450 #### [facility] [address] [place], [address] Platelets (Bld) [#/Vol] 404 10*3/uL Normal 150-450 [facility] Comment on above: Performed By: #### L 100.0100, L500.4050, L501.2450 #### [facility] [address] [place], [address] RBC (Bld) [#/Vol] 5.62 10*6/uL High 4.2-5.4 [facility] Comment on above: Performed By: #### L 100.0100, L500.4050, L501.2450 #### [facility] [address] [place], [address] RDW SD 43.1 fl Normal 35.1-43.9 [facility] Comment on above: Performed By: #### L 100.0100, L500.4050, L501.2450 #### [facility] [address] [place], [address] WBC (Bld) [#/Vol] 16.9 10*3/uL High 4.4-11.0 [facility] Comment on above: Performed By: #### L 100.0100, L500.4050, L501.2450 #### [facility] [address] [place], [address] Carbon dioxide, total [Moles /volume] in Central venous bloodOrdered By: ED PROVIDER on 04-26-2024 CO2 [Moles/Vol] 23.3 mmol/L 21.0-32.0 [facility] Chloride assayOrdered By: ED PROVIDER on 04-26-2024 Chloride [Moles/Vol] 100 mmol/L 98-108 [facility] Comprehensive Metabolic Prof ilon 04-26-2024 Albumin [Mass/Vol] 4.0 g/dL Normal 3.4-4.8 [facility] Comment on above: Performed By: #### L 501.2450, L500.4050 #### [facility] [address] [place], [address] Albumin/Globulin [Mass ratio] 1.1 {ratio} Normal 0.9-2.4 [facility] Comment on above: Performed By: #### L 501.2450, L500.4050 #### [facility] [address] [place], [address] ALK PHOS 129 U/L High 35-104 [facility] Comment on above: Performed By: #### L 501.2450, L500.4050 #### [facility] [address] [place], [address] ALT [Catalytic activity/Vol] 15 U/L Normal <=34 [facility] Comment on above: Performed By: #### L 501.2450, L500.4050 #### [facility] [address] [place], [address] AST [Catalytic activity/Vol] 21 U/L Normal <=31 [facility] Comment on above: Performed By: #### L 501.2450, L500.4050 #### [facility] [address] [place], [address] Bilirubin [Mass/Vol] 0.38 mg/dL Normal 0.00-1.30 [facility] Comment on above: Performed By: #### L 501.2450, L500.4050 #### [facility] [address] [place], [address] BUN/CRE 17.7 RATIO Normal 10-20 [facility] Comment on above: Performed By: #### L 501.2450, L500.4050 #### [facility] [address] [place], [address] Calcium [Mass/Vol] 9.6 mg/dL Normal 7.6-11.0 [facility] Comment on above: Performed By: #### L 501.2450, L500.4050 #### [facility] [address] [place], [address] Chloride [Moles/Vol] 100 mmol/L Normal 98-108 [facility] Comment on above: Performed By: #### L 501.2450, L500.4050 #### [facility] [address] [place], [address] CO2 [Moles/Vol] 23.3 mmol/L Normal 21.0-32.0 [facility] Comment on above: Performed By: #### L 501.2450, L500.4050 #### [facility] [address] [place], [address] Creatinine [Mass/Vol] 0.98 mg/dL Normal 0.70-1.20 [facility] Comment on above: Performed By: #### L 501.2450, L500.4050 #### [facility] [address] [place], [address] ECRCL 58.62 ml/min Normal 50-250 [facility] Comment on above: Performed By: #### L 501.2450, L500.4050 #### [facility] [address] [place], [address] GAP 14 Normal 5-15 [facility] Comment on above: Performed By: #### L 501.2450, L500.4050 #### [facility] [address] [place], [address] GFR/1.73 sq M.predicted among non-blacks MDRD (S/P/Bld) [Vol rate/Area] 63 mL/min/{1.73_m2} Normal >60 [facility] Comment on above: Result Comment: mL/m in/1.73m2 CKD-EPI Creatinine Equation (2020) Performed By: #### L 501.2450, L500.4050 #### [facility] [address] [place], [address] Globulin (S) [Mass/Vol] 3.5 g/dL Normal 2.2-4.2 [facility] Comment on above: Performed By: #### L 501.2450, L500.4050 #### [facility] [address] [place], [address] Glucose [Mass/Vol] 159 mg/dL High 70-99 [facility] Comment on above: Performed By: #### L 501.2450, L500.4050 #### [facility] [address] [place], [address] Potassium [Moles/Vol] 3.8 mmol/L Normal 3.3-5.1 [facility] Comment on above: Performed By: #### L 501.2450, L500.4050 #### [facility] [facility] [address] [place], [address] Sodium [Moles/Vol] 138 mmol/L Normal 133-145 [facility] Comment on above: Performed By: #### L 501.2450, L500.4050 #### [facility] [address] [place], [address] T PROT 7.5 g/dL Normal 5.9-8.4 [facility] Comment on above: Performed By: #### L 501.2450, L500.4050 #### [facility] [address] [place], [address] Urea nitrogen [Mass/Vol] 17 mg/dL Normal 4-19 [facility] Comment on above: Performed By: #### L 501.2450, L500.4050 #### [facility] [address] [place], [address] ALB Normal 3.4-4.8 [facility] Comment on above: Performed By: #### L 100.0100, L500.4050, L501.2450 #### [facility] [address] [place], [address] ALK PHOS Normal 35-104 [facility] Comment on above: Performed By: #### L 100.0100, L500.4050, L501.2450 #### [facility] [address] [place], [address] ALT Normal <=34 [facility] Comment on above: Performed By: #### L 100.0100, L500.4050, L501.2450 #### [facility] [address] [place], [address] AST Normal <=31 [facility] Comment on above: Performed By: #### L 100.0100, L500.4050, L501.2450 #### [facility] [address] [place], [address] BUN Normal 4-19 [facility] Comment on above: Performed By: #### L 100.0100, L500.4050, L501.2450 #### [facility] [address] [place], [address] BUN/CRE Normal 10-20 [facility] Comment on above: Performed By: #### L 100.0100, L500.4050, L501.2450 #### [facility] [address] [place], [address] Calcium Normal 7.6-11.0 [facility] Comment on above: Performed By: #### L 100.0100, L500.4050, L501.2450 #### [facility] [address] [place], [address] CL Normal 98-108 [facility] Comment on above: Performed By: #### L 100.0100, L500.4050, L501.2450 #### [facility] [address] [place], [address] CO2 Normal 21.0-32.0 [facility] Comment on above: Performed By: #### L 100.0100, L500.4050, L501.2450 #### [facility] [address] [place], [address] CREAT,SERUM Normal 0.70-1.20 [facility] Comment on above: Performed By: #### L 100.0100, L500.4050, L501.2450 #### [facility] [address] [place], [address] eGFR Normal >60 [facility] Comment on above: Performed By: #### L 100.0100, L500.4050, L501.2450 #### [facility] [address] [place], [address] GAP Normal 5-15 [facility] Comment on above: Performed By: #### L 100.0100, L500.4050, L501.2450 #### [facility] [address] [place], [address] GLU Normal 70-99 [facility] Comment on above: Performed By: #### L 100.0100, L500.4050, L501.2450 #### [facility] [address] [place], [address] Potassium Normal 3.3-5.1 [facility] Comment on above: Performed By: #### L 100.0100, L500.4050, L501.2450 #### [facility] [address] [place], [address] T BILI Normal 0.00-1.30 [facility] Comment on above: Performed By: #### L 100.0100, L500.4050, L501.2450 #### [facility] [address] [place], [address] T PROT Normal 5.9-8.4 [facility] Comment on above: Performed By: #### L 100.0100, L500.4050, L501.2450 #### [facility] [address] [place], [address] Comprehensive Metabolic Profil Normal 133-145 [facility] Comment on above: Performed By: #### L 100.0100, L500.4050, L501.2450 #### [facility] [address] [place], [address] Emergency Department Summary on 04-26-2024 Emergency Department Summary [facility] Medical Records Department [address] [place] [address] Emergency Department Summary 04/26/24 MR#: [id number] Acct: [id number] Name: LETY SPENCER Rep #: [id number] : 1955 69 From: Bruno Monzon PCP: Dr. Elin Reynolds, DO Status:REG ER Location: ED HPI HPI - GI History of Present Illness Chief Complaint: Abd Pain Informant: patient Narrative Narrative: Worsening upper abdominal pain since 4 PM. Nausea vomiting x 2. Having chills. No history of similar. No abdominal surgeries. Ate turkey sandwich at noon and there is no cheese or [place]. No history of similar. Denies any similar pain. Lower lumbar surgery in the past hypertension and irritable bowel syndrome. Diabetes with hyperlipidemia. severe asthma history. No anticoagulation medications. Prior similar symptoms: No PFSH PFSH Medical History GERD (gastroesophageal reflux disease) Osteoarthritis of left hip Osteoarthritis of left knee Left knee pain Left hip pain COPD (chronic obstructive pulmonary disease) Atherosclerosis of coronary artery bypass graft of [place] heart with angina pectoris Excessive sweating History of TIA (transient ischemic attack) (2006) Obesity Type 2 diabetes mellitus COVID-19 virus detected (10/04/20) Essential hypertension Candidiasis of mouth Seasonal allergic rhinitis Exercise-induced bronchospasm Hyperlipidemia 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 Back pain, sacroiliac Asthma Home Medications ???Medication ???Instructions ???Recorded ???Last Taken ???Type hydrochlorothiazide 25 mg tablet 12.5 mg PO DAILY diuretic/water 10/05/20 History pill simvastatin 40 mg tablet 40 mg PO QHS cholesterol 11/05/15 10/04/20 History lisinopril 10 mg tablet 10 mg PO QHS blood pressure 10/04/20 History albuterol sulfate 2.5 mg/3 mL 2.5 mg (3 mL) inhalation Q4H PRN 0 04/21/19 Unknown Rx (0.083 %) solution for nebulization Sob /Or Wheezing #180 vials nebulizers #1 ea 04/02/20 Unknown Rx metformin 500 mg tablet 500 mg PO BID 08/07/20 10/05/20 Hi story Handicap Placcard #1 ea 02/04/22 Unknown Rx Fasenra 30 mg/mL subcutaneous 30 mg subcut Q8W #1 mL 01/14/23 Un known Rx syringe (benralizumab) albuterol sulfate 90 mcg/actuation 2 puff inhalation Q4H PRN Unknown Rx aerosol inhaler (Ventolin HFA) shortness of breath or wheezing #1 device montelukast 10 mg tablet 10 mg PO QPM #90 tabs 08/26/23 Unk nown Rx amitriptyline 25 mg tablet 25 mg PO QHS esophageal spasm #90 03/01/24 Unknown Rx tabs cetirizine 10 mg capsule 10 mg PO QHS 04/26/24 Unknown Hist ory fluconazole 150 mg tablet 150 mg PO QWEEK PRN yeast #2 tabs 04/26/24 Unknown Rx ondansetron 4 mg disintegrating 4 mg PO Q8H PRN PRN Nausea #10 tab s 04/26/24 Unknown Rx tablet pantoprazole 40 mg tablet,delayed 40 mg PO DAILY 04/26/24 Unknown H istory release sucralfate 1 gram tablet (Carafate) 1 g PO Q6H #60 tabs 04/26/24 Un known Rx Allergy/AdvReac Type Severity Reaction Status Date / Time buprenorphine (From Butrans) Allergy Mild Hives Verified 04/26/24 18:56 terbinafine Allergy Mild Rash Verified 04/26/24 18:56 codeine Allergy Unknown Verified 04/26/24 18:56 nortriptyline AdvReac Mild Upset Verified 04/26/24 18:56 Stomach omeprazole AdvReac Mild Diarrhea Verified 04/26/24 18:56 Penicillins AdvReac Mild yeast Verified 04/26/24 18:56 infection naproxen (From Naprosyn) AdvReac gi upset Verified 04/26/24 18:56 nortriptyline HCl (From AdvReac Upset Verified 04/26/24 18:56 Pamelor) Stomach Family History Mother Anxiety Hypertension kidney/renal disease High cholesterol Brother Heart disease Cancer Bladder Cancer CAD (coronary artery disease) Father Heart disease Myocardial infarction, Onset Age: 43 CAD (coronary artery disease) Brother CAD (coronary artery disease) Surgical History History of left heart catheterization (05/27/07) History of back surgery History of tubal ligation History of tonsillectomy History of hysterectomy History of D C History of right breast biopsy Social History household members: spouse Smoking Status: Never smoker second hand exposure: No alcohol intake: never substance use type: does not use caffeine: No what type of physical activity do you participate in: none ROS ROS ED Constitutional Constitutional ED: Reports chills; Denies fever(s) or sweats ENT ENT ED: Denies sore throat Cardiovascular Cardiovascular: Denies chest pain, leg edema, palpitations or racing heartbeat Respiratory/Chest Respir (more content not included)... Normal [facility] Eosinophil percentageOrdered By: ED PROVIDER on 04-26-2024 Eosinophils/100 WBC (Bld) 0.0 % 0-5 [facility] Epithelial cells.squamous LM Ql (Urine sed)Ordered By: Bruno Rae on 04-26-2024 Epithelial cells.squamous LM.HPF (Urine sed) [#/Area] 0 /[HPF] 5-10 [facility] Erythrocyte distribution wid th ratioOrdered By: ED PROVIDER on 04-26-2024 Erythrocyte distribution width (RBC) [Ratio] 13.7 % 11.6-14.6 [facility] Erythrocyte distribution wid th standard deviationOrdered By: ED PROVIDER on 04-26-2024 Erythrocyte distribution width (RBC) [Entitic vol] 43.1 fL 35.1-43.9 [facility] Estimation of creatinine ruslan aranceOrdered By: ED PROVIDER on 04-26-2024 Estimated Creatinine Clearance Calc 58.62 ml/min 50-250 [facility] GFR/1.73 sq M.predicted monisha g non-blacks MDRD (S/P/Bld) [Vol rate/Area]Ordered By: ED PROVIDER on 04-26-2024 Estimated GFR (MDRD) Non-Af Amer 63 >60 [facility] Comment on above: mL/min/1.73m2 CKD-EP I Creatinine Equation (2020) Gallbladderon 04-26-2024 Gallbladder [facility] Imaging Services [address] [place] [address] Gallbladder MR#: [id number] Acct: [id number] Name: LETY SPENCER Rep #: [id number] : 1955 F 69 From: Solo Ndiaye PCP: Dr. Elin Reynolds DO Status: REG ER Study: Gallbladder Date of Exam: 04/26/24 Exam# [id number] Ordering Dr: Bruno Rae DO PROCEDURE: Right upper quadrant ultrasound REASON FOR EXAM: PAIN COMPARISON: None FINDINGS: Liver: Diffuse increased hepatic echogenicity most consistent with steatosis. Gallbladder: No stones, sludge, wall thickening or tenderness. Common bile duct: Normal measuring 5 mm. Pancreas: Tiny cyst measuring 8 mm. Trace perihepatic ascites. US/Gallbladder IMPRESSION: Hepatic steatosis. Trace perihepatic ascites. Reading Location: [facility] CC: Dr. Elin Reynolds DO; Dr. Bruno Rae DO Clinical Biostatistics Director: Signed Normal [facility] Glucose Ql (U)Ordered By: Guilhreme Rae on 04-26-2024 Urine Glucose (UA) Normal mg/dl Normal [facility] Hematocrit Auto (Bld) [Volum e fraction]Ordered By: ED PROVIDER on 04-26-2024 Hematocrit (Bld) [Volume fraction] 48.2 % High 37-47 [facility] Hemoglobin measurementOrdere d By: ED PROVIDER on 04-26-2024 Hemoglobin (Bld) [Mass/Vol] 16.0 g/dL High 12.0-15.0 [facility] Immature granulocytes/100 WB C Auto (Bld)Ordered By: ED PROVIDER on 04-26-2024 Immature granulocytes/100 WBC (Bld) 0.500 % 0.0-0.9 [facility] Comment on above: IG% - Immature Granu locytes (promyelocytes, myelocytes and metamyelocytes) > 1% indicates that a LEFT SHIFT is Present. Ketones Test strip Ql (U)Ord ered By: Bruno Rae on 04-26-2024 Ketones Ql (U) 15 mg/dl High Negative [facility] - Chemistry and C hemistry - challengeOrdered By: ED PROVIDER on 04-26-2024 AST [Catalytic activity/Vol] 21 U/L <32 [facility] Lipaseon 04-26-2024 Lipase [Catalytic activity/Vol] 19 U/L Normal 13-75 [facility] Comment on above: Result Comment: Denilson cardenas note: LIPASE revised reference range effective 22. New Lipase methodology. Expected to produce lower values than the previous assay method. NEW Reference Range: 13 - 75 U/L Performed By: #### L 501.2450, L500.4050 #### [facility] [address] [place], [address] Lipase [Catalytic activity/Vol] 25 U/L Normal 13-75 [facility] Comment on above: Result Comment: Denilson cardenas note: LIPASE revised reference range effective 22. New Lipase methodology. Expected to produce lower values than the previous assay method. NEW Reference Range: 13 - 75 U/L Performed By: #### L 100.0100, L500.4050, L501.2450 #### [facility] [address] [place], [address] Lipase measurementOrdered By : ED PROVIDER on 04-26-2024 Lipase [Catalytic activity/Vol] 19 U/L 13-75 [facility] Comment on above: Please note:LIPASE r evised reference range effective 22. New Lipase methodology. Expected to produce lower values than the previous assay method. NEW Reference Range: 13 - 75 U/L Lymphocytes Auto (Unsp spec) [#/Vol]Ordered By: ED PROVIDER on 04-26-2024 Lymphocytes (Bld) [#/Vol] 3.73 10*3/uL 0.83-4.51 [facility] Lymphocytes/100 WBC Auto (Un sp spec)Ordered By: ED PROVIDER on 04-26-2024 Lymphocytes/100 WBC (Bld) 22.1 % 19-41 [facility] MCV (mean corpuscular volume ) determinationOrdered By: ED PROVIDER on 04-26-2024 MCV (RBC) [Entitic vol] 85.8 fL 81-99 [facility] Mean corpuscular hemoglobin (MCH) determinationOrdered By: ED PROVIDER on 04-26-2024 MCH (RBC) [Entitic mass] 28.5 pg 27.0-32.0 [facility] Mean corpuscular hemoglobin concentration (MCHC) determinationOrdered By: ED PROVIDER on 04-26-2024 MCHC (RBC) [Mass/Vol] 33.2 g/dL 32-36 [facility] Mean platelet volume determi nationOrdered By: ED PROVIDER on 04-26-2024 Platelet mean volume (Bld) [Entitic vol] 9.5 fL 6.2-12.0 [facility] Microscopic analysis of urin e for red blood cells (RBC)Ordered By: Bruno Rae on 04-26-2024 Urine RBC 0-5 SEEN /hpf 0-5 [facility] Monocyte percentageOrdered B y: ED PROVIDER on 04-26-2024 Monocytes/100 WBC (Bld) 4.2 % 0-10 [facility] Mucus LM Ql (Urine sed)Order ed By: Bruno Rae on 04-26-2024 Mucus Ql (Urine sed) 0 SEEN /hpf [facility] Neutrophil percentageOrdered By: ED PROVIDER on 04-26-2024 Neutrophils/100 WBC (Bld) 73.0 % High 47-70 [facility] Nitrite Test strip Ql (U)Ord ered By: Bruno Rae on 04-26-2024 Nitrite Ql (U) Positive High Negative [facility] Nucleated red blood cell per centageOrdered By: ED PROVIDER on 04-26-2024 Nucleated RBC/100 WBC (Bld) [Ratio] 0 % 0-5 [facility] Platelet countOrdered By: ED PROVIDER on 04-26-2024 Platelets (Bld) [#/Vol] 404 10*3/uL 150-450 [facility] Potassium (Unsp spec) [Mass/ Vol]Ordered By: ED PROVIDER on 04-26-2024 Potassium [Moles/Vol] 3.8 mmol/L 3.3-5.1 [facility] Protein Test strip Ql (U)Ord ered By: Bruno Rae on 04-26-2024 Protein Ql (U) 15 mg/dl High Negative [facility] RBC Auto (Bld) [#/Vol]Ordere d By: ED PROVIDER on 04-26-2024 RBC (Bld) [#/Vol] 5.62 10*6/uL High 4.2-5.4 [facility] Serum creatinine measurement (mass/volume)Ordered By: ED PROVIDER on 04-26-2024 Creatinine [Mass/Vol] 0.98 mg/dL 0.70-1.20 [facility] Serum globulin measurementOr dered By: ED PROVIDER on 04-26-2024 Globulin (S) [Mass/Vol] 3.5 g/dL 2.2-4.2 [facility] Serum glucose measurement (m ass/volume)Ordered By: ED PROVIDER on 04-26-2024 Glucose [Mass/Vol] 159 mg/dL High 70-99 [facility] Serum or plasma alanine medrano otransferase (ALT) measurementOrdered By: ED PROVIDER on 04-26-2024 ALT [Catalytic activity/Vol] 15 U/L <35 [facility] Serum or plasma albumin josé miguel urement (mass/volume)Ordered By: ED PROVIDER on 04-26-2024 Albumin [Mass/Vol] 4.0 g/dL 3.4-4.8 [facility] Serum or plasma albumin/glob ulin mass ratioOrdered By: ED PROVIDER on 04-26-2024 Albumin/Globulin [Mass ratio] 1.1 {ratio} 0.9-2.4 [facility] Serum or plasma alkaline pankaj sphatase measurementOrdered By: ED PROVIDER on 04-26-2024 ALP [Catalytic activity/Vol] 129 U/L High 35-104 [facility] Serum or plasma calcium josé miguel urement (mass/volume)Ordered By: ED PROVIDER on 04-26-2024 Calcium [Mass/Vol] 9.6 mg/dL 7.6-11.0 [facility] Serum or plasma urea nitroge n measurement (mass/volume)Ordered By: ED PROVIDER on 04-26-2024 Urea nitrogen [Mass/Vol] 17 mg/dL 4-19 [facility] Sodium levelOrdered By: KARTIK BAH on 04-26-2024 Sodium [Moles/Vol] 138 mmol/L 133-145 [facility] Total proteinOrdered By: ED PROVIDER on 04-26-2024 Protein [Mass/Vol] 7.5 g/dL 5.9-8.4 [facility] Urinalysis, Completeon 04-26 BACTERIA 4+ /hpf Normal None Seen [facility] Comment on above: Order Comment: COLLE CTOR TO SPECIFY Performed By: #### L 400.0001 ####[facility] [address] [place], [address] EPI,SQUAMOUS 0-5 SEEN Normal 5-10 [facility] Comment on above: Order Comment: COLLE CTOR TO SPECIFY Performed By: #### L 400.0001 ####[facility] [address] [place] [id number] RBC 0-5 SEEN Normal 0-5 [facility] Comment on above: Order Comment: [place] CTOR TO SPECIFY Performed By: #### L 400.0001 ####[facility] [address] [place] [id number] WBC 25-50 SEEN Normal 0-5 [facility] Comment on above: Order Comment: [place] CTOR TO SPECIFY Performed By: #### L 400.0001 ####[facility] [address] [place] [address] BILIRUBIN URINE Negative Normal Negative [facility] Comment on above: Order Comment: [place] CTOR TO SPECIFY Performed By: #### L 400.0001 ####[facility] [address] [place], [place], [phone] Clarity (U) Cloudy Normal Clear [facility] Comment on above: Order Comment: [place] CTOR TO SPECIFY Performed By: #### L [id number] ####[facility] [address] [place], [address] Color (U) Yellow Normal Yellow [facility] Comment on above: Order Comment: [place] CTOR TO SPECIFY Performed By: #### L [id number] ####[facility] [address] [place], [address] GLUCOSE, UR Normal Normal Normal [facility] Comment on above: Order Comment: [place] CTOR TO SPECIFY Performed By: #### L 400.0001 ####[facility] [address] [place], [address] KETONE UR 15 mg/dl Abnormal Negative [facility] Comment on above: Order Comment: [place] CTOR TO SPECIFY Performed By: #### L 400.0001 ####[facility] [address] [place], [address] LEUK ESTERASE 100 /ul Abnormal Negative [facility] Comment on above: Order Comment: [place] CTOR TO SPECIFY Performed By: #### L 400.0001 ####[facility] [address] [place], [address] Nitrite Ql (U) Positive Abnormal Negative [facility] Comment on above: Order Comment: [place] CTOR TO SPECIFY Performed By: #### L 400.0001 ####[facility] [address] [place], [address] OCCULT BLOOD-UR 10 /ul Abnormal Negative [facility] Comment on above: Order Comment: [place] CTOR TO SPECIFY Performed By: #### L 400.0001 ####[facility] [address] [place], [address] pH UR 6.0 Normal 5.0 - 8.0 [facility] Comment on above: Order Comment: [place]UST[place] CTOR TO SPECIFY Performed By: #### L [id number] ####[facility] [address] [place], [address] PROT DIPSTX 15 mg/dl Abnormal Negative [facility] Comment on above: Order Comment: [place] CTOR TO SPECIFY Performed By: #### L 400.0001 ####[facility] [address] [place], [address] SP.GR. DIPSTX 1.020 Normal 1.002-1.030 [facility] Comment on above: Order Comment: [place]USTIN CTOR TO SPECIFY Performed By: #### L 400.0001 ####[facility] [address] [place], [address] UROBILI Normal Normal Normal [facility] Comment on above: Order Comment: AUSTIN CTOR TO SPECIFY Performed By: #### L [id number] ####[facility] [address] [place], [place], [phone] Mucus Ql (Urine sed) 0 SEEN Normal [facility] Comment on above: Order Comment: [place]USTIN CTOR TO SPECIFY Performed By: #### L [id number] ####[facility] [address] [place], [place], [phone] Urine blood detectionOrdered By: Bruno Rae on 04-26-2024 Urine Occult Blood 10 /ul High Negative [facility] Urine clarityOrdered By: Jonny Rae on 04-26-2024 Clarity (U) Cloudy Clear [facility] Urine color determinationOrd ered By: Bruno Rae on 04-26-2024 Color (U) Yellow Yellow [facility] Urine leukocyte esterase det ection by dipstickOrdered By: Bruno Rae on 04-26-2024 Leukocyte esterase Test strip Ql (U) 100 /ul High Negative [facility] Urine pHOrdered By: Bruno Rae on 04-26-2024 pH (U) 6.0 [pH] 5.0 - 8.0 [facility] Urine sediment bacteria coun t by microscopy (number/high power field)Ordered By: Bruno Rae on 04-26-2024 Bacteria LM.HPF (Urine sed) [#/Area] 4 /[HPF] None Seen [facility] Urine specific gravity measu rementOrdered By: Bruno Rae on 04-26-2024 Specific gravity (U) [Rel density] 1.020 1.002-1.030 [facility] Urobilinogen Ql (U)Ordered B y: Bruno Rae on 04-26-2024 Urine Urobilinogen Normal mg/dl Normal [facility] White blood cell (WBC) count Ordered By: ED PROVIDER on 04-26-2024 WBC (Bld) [#/Vol] 16.9 10*3/uL High 4.4-11.0 [facility] White blood cell countOrdere d By: Bruno Rae on 04-26-2024 Urine WBC 25-50 SEEN /hpf 0-5 [facility] Gastroenterology Visit Repor ton 03-01-2024 Gastroenterology Visit Report [facility] Gastroenterology [address] [place] [address] OFFICE VISIT Date of Service: 03/01/24 MR#: [id number] Acct: [id number] Name: LETY SPENCER Rep #: [id number] : 1955 Provider: MOLLY llamas Age/Sex: 68/F Location: 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 Is patient in pain?: No Allergies buprenorphine (From Butrans) Allergy (Mild, Verified 03/01/24 10:07) Hives terbinafine Allergy (Mild, Verified 03/01/24 10:07) Rash codeine Allergy (Verified 03/01/24 10:07) Unknown nortriptyline Adverse Reaction (Mild, Verified 03/01/24 10:07) Upset Stomach omeprazole Adverse Reaction (Mild, Verified 03/01/24 10:07) Diarrhea Penicillins Adverse Reaction (Mild, Verified 03/01/24 10:07) yeast infection naproxen (From Naprosyn) Adverse Reaction (Verified 03/01/24 10:07) gi upset nortriptyline HCl (From Pamelor) Adverse Reaction (Verified 03/01/24 10:07) Upset Stomach Medications ???Medication ???Instructions ???Recorded ???Confirmed ???Type hydrochlorothiazide 25 mg tablet 12.5 mg PO DAILY diuretic/water 11/05/15 03/01/24 History pill simvastatin 40 mg tablet 40 mg PO QHS cholesterol 11/05/15 03/01/24 History lisinopril 10 mg tablet 10 mg PO QHS blood pressure 07/09/17 03/01/24 History albuterol sulfate 2.5 mg/3 mL 2.5 mg (3 mL) inhalation Q4H PRN 04/21/19 03/01/24 Rx (0.083 %) solution for nebulization Sob /Or Wheezing #180 vials nebulizers #1 ea 04/02/20 03/01/24 Rx metformin 500 mg tablet 500 mg PO BID 08/07/20 03/01/24 History Handicap Placcard #1 ea 02/04/22 03/01/24 Rx Fasenra 30 mg/mL subcutaneous 30 mg subcut Q8W #1 mL 01/14/23 03/01/24 Rx syringe (benralizumab) albuterol sulfate 90 mcg/actuation 2 puff inhalation Q4H PRN 02/18/23 03/01/24 Rx aerosol inhaler (Ventolin HFA) shortness of breath or wheezing #1 device cetirizine 10 mg capsule 10 mg PO HS #90 caps 08/26/23 03/01/24 Rx montelukast 10 mg tablet 10 mg PO QPM #90 tabs 08/26/23 03/01/24 Rx pantoprazole 20 mg tablet,delayed 20 mg PO QDAY GERD #30 tabs 01/27/24 03/01/24 Rx release amitriptyline 25 mg tablet 25 mg PO QHS esophageal spasm #90 03/01/24 03/01/24 Rx tabs Have you fallen in the past year?: No Nurse's Note: Has been feeling great until yesterday. She started feeling nauseous and got diarrhea. Here to go over medical records. [facility] Medical History GERD (gastroesophageal reflux disease) Osteoarthritis of left hip Osteoarthritis of left knee Left knee pain Left hip pain COPD (chronic obstructive pulmonary disease) Atherosclerosis of coronary artery bypass graft of [place] heart with angina pectoris Excessive sweating History of TIA (transient ischemic attack) (2006) Obesity Type 2 diabetes mellitus COVID-19 virus detected (10/04/20) Essential hypertension Candidiasis of mouth Seasonal allergic rhinitis Exercise-induced bronchospasm Hyperlipidemia 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 Back pain, sacroiliac Asthma Surgical History History of left heart catheterization (05/27/07) History of back surgery History of tubal ligation History of tonsillectomy History of hysterectomy History of D C History of right breast biopsy Family History Mother Anxiety Hypertension kidney/renal disease High cholesterol Brother Heart disease Cancer Bladder Cancer CAD (coronary artery disease) Father Heart disease Myocardial infarction, Onset Age: 43 CAD (coronary artery disease) Brother CAD (coronary artery disease) Social History household members: spouse Smoking Status: Never smoker second hand exposure: No alcohol intake: never substance use type: does not use caffeine: No what type of physical activity do you participate in: none HPI HPI Chief Complaint: follow-up Details: LETY SPENCER, is a 68 F who presents to the office today for 68y/o female presents for follow-up. PMH significant for HTN, Eosinophilic Asthma, GERD, Esophageal spasm (amitriptyline 50mg 2018), STEVEN (F4/S3), IBS, TIA. She has a history of positive pANCA, but no imaging or biopsy evidence of PSC. She was previously seen by Dr. Hemphill in [place] with c/o esophageal spasms and fecal soiling. Amitriptyline was increased over time (more content not included)... Normal [facility] Gastroenterology Visit Repor ton 01-27-2024 Gastroenterology Visit Report [facility] Gastroenterology [address] [place] [address] OFFICE VISIT Date of Service: 01/27/24 MR#: [id number] Acct: [id number] Name: LETY SPENCER Rep #: [id number] : 1955 Provider: MOLLY llamas Age/Sex: 68/F Location: [facility] [place] [place] Status: Signed Intake Vital Signs 11/25/23 12:03 01/27/24 10:08 Height 5 ft 4 in 5 ft 4 in Weight: 189 lb 189 lb BMI 32.4 32.4 BP 123/82 H 138/73 H Blood Pressure Location Rt brachial Position Sitting Respiration 16 18 Pulse 96 101 H Pulse Source Monitor Temp 96.4 F L Pulse Oximetry (%) 97 95 Oxygen Delivery Method room air Intake Visit Reasons: Leaking bowel Chief Complaint: second opinion 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 Required: No Is patient in pain?: No Allergies buprenorphine (From Butrans) Allergy (Mild, Verified 01/27/24 10:06) Hives terbinafine Allergy (Mild, Verified 01/27/24 10:06) Rash codeine Allergy (Verified 01/27/24 10:06) Unknown nortriptyline Adverse Reaction (Mild, Verified 01/27/24 10:06) Upset Stomach omeprazole Adverse Reaction (Mild, Verified 01/27/24 10:06) Diarrhea Penicillins Adverse Reaction (Mild, Verified 01/27/24 10:06) yeast infection naproxen (From Naprosyn) Adverse Reaction (Verified 01/27/24 10:06) gi upset nortriptyline HCl (From Pamelor) Adverse Reaction (Verified 01/27/24 10:06) Upset Stomach Medications ???Medication ???Instructions ???Recorded ???Confirmed ???Type hydrochlorothiazide 25 mg tablet 12.5 mg PO DAILY diuretic/water 11/05/15 01/27/24 History pill simvastatin 40 mg tablet 40 mg PO QHS cholesterol 11/05/15 01/27/24 History lisinopril 10 mg tablet 10 mg PO QHS blood pressure 07/09/17 01/27/24 History albuterol sulfate 2.5 mg/3 mL 2.5 mg (3 mL) inhalation Q4H PRN 04/21/19 01/27/24 Rx (0.083 %) solution for nebulization Sob /Or Wheezing #180 vials amitriptyline 50 mg tablet 50 mg PO QHS sleep 06/25/19 01/27/24 History nebulizers #1 ea 04/02/20 01/27/24 Rx metformin 500 mg tablet 500 mg PO BID 08/07/20 01/27/24 History Handicap Placcard #1 ea 02/04/22 01/27/24 Rx Fasenra 30 mg/mL subcutaneous 30 mg subcut Q8W #1 mL 01/14/23 01/27/24 Rx syringe (benralizumab) albuterol sulfate 90 mcg/actuation 2 puff inhalation Q4H PRN 02/18/23 01/27/24 Rx aerosol inhaler (Ventolin HFA) shortness of breath or wheezing #1 device cetirizine 10 mg capsule 10 mg PO HS #90 caps 08/26/23 01/27/24 Rx montelukast 10 mg tablet 10 mg PO QPM #90 tabs 08/26/23 01/27/24 Rx pantoprazole 20 mg tablet,delayed 20 mg PO QDAY GERD #30 tabs 01/27/24 01/27/24 Rx release Have you fallen in the past year?: No Nurse's Note: Has been seeing DR. Hemphill in [place] diagnosed her with IBS w/diarrhea and started her on amitriptyline and she is seeking a second opinion. She has no idea when she leaks and suspects that is the reason for alot of UTI's she's been having. She started fiber daily and hasn't leaked at all. [facility] Medical History (Updated 01/27/24 @ 11:01 by Lisa Jackson NP-C) GERD (gastroesophageal reflux disease) Osteoarthritis of left hip Osteoarthritis of left knee Left knee pain Left hip pain COPD (chronic obstructive pulmonary disease) Atherosclerosis of coronary artery bypass graft of [place] heart with angina pectoris Excessive sweating History of TIA (transient ischemic attack) (2006) Obesity Type 2 diabetes mellitus COVID-19 virus detected (10/04/20) Essential hypertension Candidiasis of mouth Seasonal allergic rhinitis Exercise-induced bronchospasm Hyperlipidemia 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 Back pain, sacroiliac Asthma Surgical History History of left heart catheterization (05/27/07) History of back surgery History of tubal ligation History of tonsillectomy History of hysterectomy History of D C History of right breast biopsy Family History Mother Anxiety Hypertension kidney/renal disease High cholesterol Brother Heart disease Cancer Bladder Cancer CAD (coronary artery disease) Father Heart disease Myocardial infarction, Onset Age: 43 CAD (coronary artery disease) Brother CAD (coronary artery disease) Social History household members: spouse Smoking Status: Never smoker second hand exposure: No alcohol intake: never substance use type: does not use caffeine: No what type of physical activity do you participate in: none HPI HPI Chief Complaint: second opinion Details: LETY KRYDER, is a 68 F who presents to the office today for - she was seeing Dr. Hemphill in [place] and reports she was diagnosed with IBS - she is here seeking a second opinion - she is (more content not included)... Normal [facility] Kidney and Bladderon 024 Kidney and Bladder [facility] Imaging Services [address] [place], [place] [address] Kidney and Bladder MR#: [id number] Acct: [id number] Name: LETY SPENCER Rep #: [id number] : 1955 F 68 From: Mansoor Oliveira MD PCP: Dr. Elin Reynolds, Status: REG CLI Study: Kidney and Bladder Date of Exam: 01/21/24 Exam# [id number] Ordering Dr: Valentine Salmon MD [id number] STUDY: RENAL ULTRASOUND - COMPLETE REASON FOR EXAM: Female, 68 years old. UTI TECHNIQUE: Ultrasound evaluation of the kidneys was performed with real-time and static sanchez-scale imaging. COMPARISON: None. FINDINGS: RIGHT KIDNEY: Normal location of the right kidney, which is normal in size. The right kidney measures 11.2 cm. There is a normal cortex of the right kidney. The renal cortex measures 1.4 cm. There is no right renal mass or cyst. There are no right renal calculi. There is no right hydronephrosis. DISTAL RIGHT URETER: There is non-visualization of the distal right ureter. There is no demonstrated right ureterovesical junction calculus. There is a visualized right ureteral jet. LEFT KIDNEY: Normal location of the left kidney, which is normal in size. The left kidney measures 11.0 cm. There is a normal cortex of the left kidney. The renal cortex measures 1.7 cm. There is no left renal mass or cyst. There are no left renal calculi. There is no left hydronephrosis. DISTAL LEFT URETER: There is non-visualization of the distal left ureter. There is no demonstrated left ureterovesical junction calculus. There is a visualized left ureteral jet. BLADDER: The distended urinary bladder has a volume of 262 ml. The empty urinary bladder has a volume of 52 ml. There is a normal wall thickness of the distended urinary bladder. There is no demonstrated mass within the urinary bladder. There are no demonstrated bladder calculi. US/Kidney and Bladder IMPRESSION: Normal ultrasound of the kidneys and urinary bladder. Electronically Signed: Mansoor Oliveira MD at 10:32 EST , CC: Dr. Valentine Salmon MD; Dr. Elin Reynolds DO Clinical Biostatistics Director: Signed Normal [facility] MR TRANSFER OF OUTSIDE FILMS on 01-23-2023 MR TRANSFER OF OUTSIDE FILMS Outside images for comparison or treatment purposes, not interpreted by Radiologists. Normal [facility] Study Interpretation of outs preet studyon 01-23-2023 Outside images for comparison or treatment purposes, not interpreted by Radiologists. IMAGING Basophil percentageOrdered B y: Dinora Hemphill on 12-18-2022 Bilirubin [Mass/Vol] 0.20 mg/dL 0.20-1.00 [facility] Comment on above: For patients on eltr ombopag therapy, use of Dimension [place] TBIL is not recommended. Chloride [Moles/Vol] 104 mmol/L 98-107 [facility] Glucose [Mass/Vol] 153 mg/dL 74-106 [facility] Comment on above: Fasting Glucose resu lt greater than or equal to 126 mg/dL suggests DIABETES MELLITUS per A.D.A. criteria. Potassium [Moles/Vol] 4.4 mmol/L 3.5-5.1 [facility] Protein [Mass/Vol] 8.0 g/dL 6.4-8.2 [facility] Sodium [Moles/Vol] 138 mmol/L 136-145 [facility] Laboratory - Chemistry and C hemistry - challengeOrdered By: iDnora Hemphill on 12-18-2022 ALP [Catalytic activity/Vol] 142 U/L 45-117 [facility] ALT [Catalytic activity/Vol] 50 U/L 13-56 [facility] CO2 [Moles/Vol] 29.0 mmol/L 21.0-32.0 [facility] Globulin (S) [Mass/Vol] 4.5 g/dL 2.2-4.2 [facility] Urea nitrogen/Creatinine [Mass ratio] 13.9 mg/mg 10-20 [facility] No Panel InformationOrdered By: Dinora Hemphill on 12-18-2022 Estimated GFR (MDRD) Amer 77 mL/min >60 [facility] Comment on above: GFR Calc Estimated GFR (MDRD) Non-Af Amer 64 mL/min >60 [facility] Comment on above: Non- GFR Calc Serum or plasma albumin josé miguel urement (mass/volume)Ordered By: Dinora Hemphill on 12-18-2022 Albumin [Mass/Vol] 3.5 g/dL 3.2-5.0 [facility] Serum or plasma albumin/glob ulin mass ratioOrdered By: Dinora Hemphill on 12-18-2022 Albumin/Globulin [Mass ratio] 0.8 {ratio} 0.9-2.4 [facility] Serum or plasma calcium josé miguel urement (mass/volume)Ordered By: Dinora Hemphill on 12-18-2022 Calcium [Mass/Vol] 9.6 mg/dL 8.5-10.1 [facility] Serum or plasma creatinine m easurement (mass/volume)Ordered By: Dinora Hemphill on 12-18-2022 Creatinine [Mass/Vol] 0.94 mg/dL 0.55-1.02 [facility] Comment on above: The validity of the calculated GFR & GFRAA in patients over 70 years has not been determined. Clinical correlation is essential. Serum or plasma urea nitroge n measurement (mass/volume)Ordered By: Dinora Hemphill on 12-18-2022 Urea nitrogen [Mass/Vol] 13 mg/dL 7-18 [facility] Thin prep Papanicolaou smear with manual screeningOrdered By: Dinora Hemphill on 12-18-2022 Thin prep Papanicolaou smear with manual screening 42 U/L 15-37 [facility] Thin prep Papanicolaou smear with manual screening 5 5-15 [facility] Urinalysis, Complete W/ Micr oscopic Examination with reflex to urine culture, routine (60023)Ordered By: Associate Account Executive on 08-20-2022 Urinalysis, Complete W/ Microscopic Examination with reflex to urine culture, routine (61817) 1.020 1 Normal 1.005-1.030 [facility] Work Phone: Urinalysis, Complete W/ Microscopic Examination with reflex to urine culture, routine (71228) 5.5 1 Normal 5.0-7.5 [facility]; [facility] Work Phone: Urinalysis, Complete W/ Microscopic Examination with reflex to urine culture, routine (48903) Yellow Normal [facility]; [facility] Work Phone: Urinalysis, Complete W/ Microscopic Examination with reflex to urine culture, routine (12584) Cloudy Abnormal [facility]; [facility] Work Phone: Urinalysis, Complete W/ Microscopic Examination with reflex to urine culture, routine (75708) 3+ Abnormal [facility]; [facility] Work Phone: Urinalysis, Complete W/ Microscopic Examination with reflex to urine culture, routine (60520) Trace Normal [facility]; [facility] Work Phone: Urinalysis, Complete W/ Microscopic Examination with reflex to urine culture, routine (05460) Negative Normal [facility]; [facility] Work Phone: Urinalysis, Complete W/ Microscopic Examination with reflex to urine culture, routine (02133) 1+ Abnormal [facility]; [facility] Work Phone: Urinalysis, Complete W/ Microscopic Examination with reflex to urine culture, routine (20485) 0.2 mg/dL Normal 0.2-1.0 [facility]; [facility] Work Phone: Urinalysis, Complete W/ Microscopic Examination with reflex to urine culture, routine (49300) See below: Normal [facility]; [facility] Work Phone: Urinalysis, Complete W/ Microscopic Examination with reflex to urine culture, routine (44321) FLEX Normal [facility]; [facility] Work Phone: Urinalysis, Office ([id number])Or dered By: Caterina Oneil on 08-20-2022 Bilirubin Ql (U) Negative Normal [facility]; [facility] Work Phone: Glucose Test strip (U) [Mass/Vol] Negative Normal [facility]; [facility] Work Phone: Hemoglobin Ql (U) non-hemolyzed trace Normal [facility]; [facility] Work Phone: Ketones Ql (U) Negative Normal [facility]; [facility] Work Phone: Leukocyte esterase Test strip Ql (U) Moderate Abnormal [facility]; [facility] Work Phone: Nitrite Ql (U) Negative Normal [facility]; [facility] Work Phone: pH (U) 6 [pH] Abnormal [facility]; [facility] Work Phone: Protein Ql (U) Negative Normal [facility]; [facility] Work Phone: Specific gravity (U) [Rel density] 1.025 1 Normal [facility]; [facility] Work Phone: Urobilinogen (24H U) [Mass/Time] Normal Normal [facility]; [facility] Work Phone: US BIOPSY LIVER PERon 2022 US BIOPSY LIVER PER Patient Name: LETY SPENCER STUDY: US BIOPSY LIVER PER; 05/26/2022 8:43 am INDICATION: Primary sclerosing cholangitis. COMPARISON: None. ACCESSION NUMBER(S): [id number] ORDERING CLINICIAN: DINORA HEMPHILL FINDINGS: A detailed discussion of the procedure was performed with the patient. Informed consent was obtained by Dr. Marcus. The patient was placed in the supine position. Ultrasound of the liver was performed and demonstrated diffuse hyperechogenicity throughout the liver. No definite discrete mass is seen.. The inferior right lobe of the liver was selected for biopsy. The patient was prepped and draped in normal sterile fashion. 1% lidocaine was utilized for local anesthesia. Subsequently, 2 passes were made into the inferior right lobe of the liver using 16 gauge automated cutting needle under direct ultrasound guidance via an anterior percutaneous subcostal approach. Images document the tip of the needle within the liver. There were no immediate complications. The procedure was performed by Dr. Marcus. The patient was monitored throughout the procedure by the nurse, including blood pressure, heart rate, EKG, and pulse oximetry. IMPRESSION: Successful ultrasound-guided core needle biopsy of the liver. Electronically signed by: MERON MARCUS MD [facility] Atypical perinuclear antineu trophil cytoplasmic antibodies measurementOrdered By: Dr. Hemphill on 04-29-2022 Neutrophil cytoplasmic Ab.perinuclear.atypica l IF (S) [Titer] 1:320 titer Neg:<1:20 [facility] Comment on above: The atypical pANCA p attern has been observed in asignificant percentage of patients with ulcerative colitis,primary sclerosing cholangitis and autoimmune hepatitis. Basophil percentageOrdered B y: Dr. Hemphill on 04-29-2022 Bilirubin [Mass/Vol] 0.30 mg/dL 0.20-1.00 [facility] Comment on above: For patients on eltr ombopag therapy, use of Dimension [place] TBIL is not recommended. Chloride [Moles/Vol] 101 mmol/L 98-107 [facility] Glucose [Mass/Vol] 182 mg/dL 74-106 [facility] Comment on above: Fasting Glucose resu lt greater than or equal to 126 mg/dL suggests DIABETES MELLITUS per A.D.A. criteria. Potassium [Moles/Vol] 4.3 mmol/L 3.5-5.1 [facility] Protein [Mass/Vol] 8.2 g/dL 6.4-8.2 [facility] Sodium [Moles/Vol] 135 mmol/L 136-145 [facility] WBC (Bld) [#/Vol] 8.6 10*3/uL 4.4-11.0 [facility] Blood erythrocytes count (nu mber/volume)Ordered By: Dr. Hemphill on 04-29-2022 RBC (Bld) [#/Vol] 4.83 10*6/uL 4.2-5.4 [facility] Blood hemoglobin measurement (mass/volume)Ordered By: Dr. Hemphill on 04-29-2022 Hemoglobin (Bld) [Mass/Vol] 13.7 g/dL 12.0-15.0 [facility] Blood platelet mean volumeOr dered By: Dr. Hemphill on 04-29-2022 Platelet mean volume (Bld) [Entitic vol] 10.0 fL 6.2-12.0 [facility] Determination of erythrocyte mean corpuscular volume (MCV)Ordered By: Dr. Hemphill on 04-29-2022 MCV (RBC) [Entitic vol] 88.0 fL 81-99 [facility] Hematocrit Auto (Bld) [Volum e fraction]Ordered By: Dr. Hemphill on 04-29-2022 Hematocrit (Bld) [Volume fraction] 42.5 % 37-47 [facility] INR in Blood by Coagulation assayOrdered By: Dr. Hemphill on 04-29-2022 INR Coag (Bld) [Relative time] 1.0 {INR} [facility] Iron measurement (mass/mass) Ordered By: Dr. Hemphill on 04-29-2022 Iron (Unsp spec) [Mass/Mass] 79 ug/dL 50-170 [facility] Laboratory - Chemistry and C hemistry - challengeOrdered By: Dr. Hemphill on 04-29-2022 ALP [Catalytic activity/Vol] 146 U/L 45-117 [facility] ALT [Catalytic activity/Vol] 76 U/L 13-56 [facility] CO2 [Moles/Vol] 26.0 mmol/L 21.0-32.0 [facility] Globulin (S) [Mass/Vol] 4.7 g/dL 2.2-4.2 [facility] Urea nitrogen/Creatinine [Mass ratio] 21.7 mg/mg 10-20 [facility] Laboratory - CoagulationOrde red By: Dr. Hemphill on 04-29-2022 PT Coag (PPP) [Time] 13.3 s 11.7-14.9 [facility] Laboratory - Hematology and Cell countsOrdered By: Dr. Hemphill on 04-29-2022 Erythrocyte distribution width (RBC) [Entitic vol] 43.4 fL 35.1-43.9 [facility] Erythrocyte distribution width (RBC) [Ratio] 13.5 % 11.6-14.6 [facility] MCH (RBC) [Entitic mass] 28.4 pg 27.0-32.0 [facility] MCHC Auto (RBC) [Mass/Vol]Or dered By: Dr. Hemphill on 04-29-2022 MCHC (RBC) [Mass/Vol] 32.2 g/dL 32-36 [facility] No Panel InformationOrdered By: Dr. Hemphill on 04-29-2022 Anti-Nuclear Antibody Screen Negative Negative [facility] Ceruloplasmin 30.8 mg/dL 19.0-39.0 [facility] Comment on above: Performed at: [employer] [address] Director: Saravanan Acosta PhD, Phone: [phone] Estimated GFR (MDRD) Amer 74 mL/min >60 [facility] Comment on above: GFR Calc Estimated GFR (MDRD) Non-Af Amer 61 mL/min >60 [facility] Comment on above: Non- GFR Calc Thyroid Stimulating Hormone (TSH) 2.22 uIU/mL 0.358-3.74 [facility] Total Iron Binding Capacity 361 ug/dL 250-450 [facility] Platelets bldOrdered By: Dr. Hemphill on 04-29-2022 Platelets (Bld) [#/Vol] 309 10*3/uL 150-450 [facility] Serum lwdbt-0-krxrhbayiow me asurementOrdered By: Dr. Hemphill on 04-29-2022 Alpha 1 antitrypsin [Mass/Vol] 177 mg/dL 101-187 [facility] Comment on above: Performed at: [employer] [address] [id number] Director: Saravanan Acosta PhD, Phone: [phone] Serum classic neutrophil cyt oplasmic antibody assay (units/volume)Ordered By: Dr. Hemphill on 04-29-2022 Neutrophil cytoplasmic Ab.classic Qn (S) <1:20 titer Neg:<1:20 [facility] Serum mitochondria antibody detectionOrdered By: Dr. Hemphill on 04-29-2022 Mitochondria Ab Ql (S) <20.0 Units 0.0-20.0 [facility] Comment on above: Negative 0.0 - 20.0 Equivocal 20.1 - 24.9 Positive >24.9Mitochondrial (M2) Antibodies are found in 90-96% ofpatients with primary biliary cirrhosis. Serum or plasma actin IgG an tibody assay (units/volume)Ordered By: Dr. Hemphill on 04-29-2022 Actin IgG Qn 10 Units 0-19 [facility] Comment on above: Negative 0 - 19 Weak positive 20 - 30 Moderate to strong positive >30 Actin Antibodies are found in 52-85% of patients with autoimmune hepatitis or chronic active hepatitis and in 22% of patients with primary biliary cirrhosis. Serum or plasma albumin josé miguel urement (mass/volume)Ordered By: Dr. Hemphill on 04-29-2022 Albumin [Mass/Vol] 3.5 g/dL 3.2-5.0 [facility] Serum or plasma albumin/glob ulin mass ratioOrdered By: Dr. Hemphill on 04-29-2022 Albumin/Globulin [Mass ratio] 0.7 {ratio} 0.9-2.4 [facility] Serum or plasma calcium josé miguel urement (mass/volume)Ordered By: Dr. Hemphill on 04-29-2022 Calcium [Mass/Vol] 9.8 mg/dL 8.5-10.1 [facility] Serum or plasma creatinine m easurement (mass/volume)Ordered By: Dr. Hemphill on 04-29-2022 Creatinine [Mass/Vol] 0.97 mg/dL 0.55-1.02 [facility] Comment on above: The validity of the calculated GFR & GFRAA in patients over 70 years has not been determined. Clinical correlation is essential. Serum or plasma ferritin connie surement (mass/volume)Ordered By: Dr. Hemphill on 04-29-2022 Ferritin [Mass/Vol] 150 ng/mL 8-252 [facility] Serum or plasma iron saturat ion measurement (mass fraction)Ordered By: Dr. Hemphill on 04-29-2022 Iron saturation [Mass fraction] 21.9 % 15.0-55.0 [facility] Serum or plasma urea nitroge n measurement (mass/volume)Ordered By: Dr. Hemphill on 04-29-2022 Urea nitrogen [Mass/Vol] 21 mg/dL 7-18 [facility] Serum perinuclear neutrophil cytoplasmic antibody titer by immunofluorescenceOrdered By: Dr. Hemphill on 04-29-2022 Neutrophil cytoplasmic Ab.perinuclear IF (S) [Titer] <1:20 titer Neg:<1:20 [facility] Comment on above: The presence of posi tive fluorescence exhibiting P-ANCA orC-ANCA patterns alone is not specific for the diagnosis ofWegener's Granulomatosis (WG) or microscopic polyangiitis.Decisions about treatment should not be based solely onANCA IFA results. The International ANCA Group Consensusrecommends follow up testing of positive sera with both ME-3 and MPO-ANCA enzyme immunoassays. As many as 5% serumsamples are positive only by EIA. Ref. AM J Clin [id number];111:507-513. Thin prep Papanicolaou smear with manual screeningOrdered By: Dr. Hemphill on 04-29-2022 Thin prep Papanicolaou smear with manual screening 63 U/L 15-37 [facility] Thin prep Papanicolaou smear with manual screening 8 5-15 [facility] Initial Visit (Gastroenterol ogy)on 04-14-2022 Initial Visit (Gastroenterology) Diagnoses/Problems Assessed History of Tonsillectomy History of Tubal ligation History of Partial hysterectomy History of Colonoscopy History of Cardiac catheterization History of Balloon sinuplasty History of Asthma with COPD (493.20) (J44.9) History of Essential hypertension, benign (401.1) (I10) History of Calculus of right kidney (592.0) (N20.0) History of Mixed hyperlipidemia (272.2) (E78.2) History of fatty infiltration of liver (V12.79) (Z87.19) History of gastroesophageal reflux (GERD) (V12.79) (Z87.19) History of Pancreatic mass (577.8) (K86.89) History of insomnia (V13.89) (Z87.898) History of cardiovascular disorder (V12.50) (Z86.79) History of anxiety (V11.8) (Z86.59) History of diabetes mellitus (V12.29) (Z86.39) History of osteopenia (V13.59) (Z87.39) Orders Unlinked Stop: diazePAM 5 MG Oral Tablet Rx By: JOYCE RAHMAN; Dispense: 5 Days ; #:15; Refill: 0; CASSANDRA = N; Record; Last Updated By: Kristie Pruitt; 04/14/2022 3:10:47 PM Stop: Lyrica 75 MG Oral Capsule (Pregabalin) Rx By: ROMY; Dispense: 30 Days ; #:60; Refill: 0; CASSANDRA = N; Record; Last Updated By: Kristie Pruitt; 04/14/2022 3:10:47 PM Stop: Omeprazole 20 MG Oral Capsule Delayed Release Dispense: 30 Days ; #:60; Refill: 0; CASSANDRA = N; Record; Last Updated By: Kristie Pruitt; 04/14/2022 3:10:47 PM Stop: Ondansetron 4 MG Oral Tablet Disintegrating Rx By: JOSIAH; Dispense: 4 Days ; #:10; Refill: 0; CASSANDRA = N; Record; Last Updated By: Kristie Pruitt; 04/14/2022 3:10:47 PM Patient Discussion/Summary When you see Dr. Hemphill, plan for updated pancreas cyst imaging (suggest MR pancreas) to follow up cyst per guidelines 2 years. Provider Impressions LETY SPENCER is a 67 year female with PMH of asthma, COPD, CAD, DM2, diverticulitis, fatty liver, GERD, IBS, HTN, kidney stones, TIA who presents today for assessment of pancreas cyst. On most recent RUQ ultrasound 2020 was 6 mm x 5 mm x 5 mm and reportedly stable. She reports that she underwent EUS 2006 w/ Augustin Mcgarry and sampled and found to be benign. She denies any hx of pancreatitis, family hx of pancreas cancer, jaundice. PLAN - Recommend MR pancreas with referring Dr. Dinora Hemphill for 2 year follow up based on latest imaging. Chief Complaint New patient visit consult for pancreatic cyst Adult Risk ScreeningAdult Risk Screening_: There are no spiritual/cultural practices/values/needs that are important to know Initial Fall Risk Screening: LETY has not fallen in the last 6 months. Her fall did not result in injury. LETY does not have a fear of falling. She does not need assistance with sitting, standing or walking. Does not need assistance walking in her home. She does not need assistance in an unfamiliar setting. The patient is not using an assistive device. Pain Scale: On a scale of 0 to 10, the patient rates the pain at 1. Please identify location of pain: lower back. Living Will. Living Will: Living will on file. Did not bring. Healthcare POA: Health care proxy on file. Did not bring. Declaration of Mental Health Treatment: No mental health treatment on file. Patient Declined. Tobacco Screening: LETY does not use tobacco. Domestic Violence Screen: Does not feel threatened or abused physically, emotionally or sexually. Do you feel UNSAFE? The patient feels safe in the home. Depression/Suicide Screening: During the past 2 weeks, the patient has not felt down, depressed or hopeless. During the past 2 weeks, the patient has not felt little interest or pleasure in doing things. She does not have a risk of suicide. She has not had thoughts of harming others. Single alcohol screening question: In the past year the patient has had 5 or more drinks (men) or 4 or more drinks (women)? 0 time(s). Single substance abuse screening question: In the past year the patient has used a recreational drug or used a prescription drug for non-medical reasons? 0 time(s). Procedure or Sedation Areas: Not Applicable Nutrition Screening: In the past month, there was not a day when I or anyone in my family went hungry because there was not enough food. Patient Education: The patient denies that they or the person with them has problems with hearing, speaking, seeing, moving around or learning The patient is comfortable filling out medical forms. Perkins Learner(s) are identified by the patient as person(s) most likely to participate in providing care, such as managing medications or taking them to doctors? appointments. Primary Language for learning: Norwegian. Food Insecurity: 1. Within the past 12 months, you worried that your food would run out before you got money to buy more: No 2. Within the past 12 months, the food you bought just didn't last and you didn't have money to get more: No History of Present Illness LETY SPENCER is a 67 year female with PMH of asthma, COPD, CAD, DM2, diverticulitis, fatty liver, GERD, IBS, HTN, kidney stones, TIA who presents today for a (more content not included)... Normal [facility]aloid Tobacco Screening.on 023 Fall risk assessment a) No falls within the last year [facility] Work Phone: Tobacco use status [facility] b) No [facility] Work Phone: Basophil percentageOrdered B y: Dr. Hemphill on 03-06-2022 Bilirubin [Mass/Vol] 0.40 mg/dL 0.20-1.00 [facility] Comment on above: For patients on eltr ombopag therapy, use of Dimension [place] TBIL is not recommended. Chloride [Moles/Vol] 103 mmol/L 98-107 [facility] Glucose [Mass/Vol] 180 mg/dL 74-106 [facility] Comment on above: Fasting Glucose resu lt greater than or equal to 126 mg/dL suggests DIABETES MELLITUS per A.D.A. criteria. Potassium [Moles/Vol] 4.4 mmol/L 3.5-5.1 [facility] Protein [Mass/Vol] 8.1 g/dL 6.4-8.2 [facility] Sodium [Moles/Vol] 138 mmol/L 136-145 [facility] Laboratory - Chemistry and C hemistry - challengeOrdered By: Dr. Hemphill on 03-06-2022 ALP [Catalytic activity/Vol] 121 U/L 45-117 [facility] ALT [Catalytic activity/Vol] 79 U/L 13-56 [facility] CO2 [Moles/Vol] 28.0 mmol/L 21.0-32.0 [facility] Globulin (S) [Mass/Vol] 4.5 g/dL 2.2-4.2 [facility] Urea nitrogen/Creatinine [Mass ratio] 17.6 mg/mg 10-20 [facility] No Panel InformationOrdered By: Dr. Hemphill on 03-06-2022 Estimated GFR (MDRD) Amer 70 mL/min >60 [facility] Comment on above: GFR Calc Estimated GFR (MDRD) Non-Af Amer 58 mL/min >60 [facility] Comment on above: Non- GFR Calc Hepatitis A Antibody Total Negative Negative [facility] Comment on above: Performed at: [employer] [address] [id number] Director: Saravanan Acosta PhD, Phone: [phone] Hepatitis B Surface Antigen Non-Reactive Nonreactive [facility] Hepatitis C Antibody Non-Reactive Nonreactive [facility] Comment on above: Non Reactive: < 0.8 Equivocal: >/= 0.8 to < 1.0 Reactive: >/= 1.0The CDC recommends that a reactive/equivocal HCV antibody result be followed up by the HCV Nucleic Acid Amplificationtest ([id number]) Serum hepatitis B virus core antibody detectionOrdered By: Dr. Hemphill on 03-06-2022 HBV core Ab Ql (S) Negative Negative [facility] Serum hepatitis B virus surf jacquelyn antibody IgG detectionOrdered By: Dr. Hemphill on 03-06-2022 HBV surface IgG Ql (S) Non-Reactive [facility] Comment on above: Non Reactive: Incons istent with immunity less than <10 mIU/mL Reactive: Consistent with immunity greater than or equal to 10 mIU/mL Serum or plasma albumin josé miguel urement (mass/volume)Ordered By: Dr. Hemphill on 03-06-2022 Albumin [Mass/Vol] 3.6 g/dL 3.2-5.0 [facility] Serum or plasma albumin/glob ulin mass ratioOrdered By: Dr. Hemphill on 03-06-2022 Albumin/Globulin [Mass ratio] 0.8 {ratio} 0.9-2.4 [facility] Serum or plasma calcium josé miguel urement (mass/volume)Ordered By: Dr. Hemphill on 03-06-2022 Calcium [Mass/Vol] 9.4 mg/dL 8.5-10.1 [facility] Serum or plasma creatinine m easurement (mass/volume)Ordered By: Dr. Hemphill on 03-06-2022 Creatinine [Mass/Vol] 1.02 mg/dL 0.55-1.02 [facility] Comment on above: The validity of the calculated GFR & GFRAA in patients over 70 years has not been determined. Clinical correlation is essential. Serum or plasma urea nitroge n measurement (mass/volume)Ordered By: Dr. Hemphill on 03-06-2022 Urea nitrogen [Mass/Vol] 18 mg/dL 7-18 [facility] Thin prep Papanicolaou smear with manual screeningOrdered By: Dr. Hemphill on 03-06-2022 Thin prep Papanicolaou smear with manual screening 85 U/L 15-37 [facility] Thin prep Papanicolaou smear with manual screening 7 5-15 [facility] Basophil percentageon 2021 Basophil percentage 25-50 SEEN /hpf 0-5 [facility] Work Phone: Bilirubin Test strip Ql (U)o n 10-18-2021 Bilirubin Ql (U) Negative Negative [facility] Work Phone: Ketones Test strip Ql (U)on 10-18-2021 Ketones Ql (U) Negative Negative [facility] Work Phone: Mucus LM Ql (Urine sed)on Mucus Ql (Urine sed) 0 SEEN /hpf [facility] Work Phone: Nitrite Test strip Ql (U)on 10-18-2021 Nitrite Ql (U) Positive Negative [facility] Work Phone: Protein Test strip Ql (U)on 10-18-2021 Protein Ql (U) 15 mg/dl Negative [facility] Work Phone: Squamous epithelial cells de tection in urine sediment by light microscopyon 10-18-2021 Epithelial cells.squamous LM Ql (Urine sed) 5-10 SEEN /hpf 5-10 [facility] Work Phone: Urine blood detectionon RBC Ql (U) 25 /ul Negative [facility] Work Phone: RBC Ql (U) 0-5 SEEN /hpf 0-5 [facility] Work Phone: Urine clarityon 10-18-2021 Clarity (U) Sl. Cloudy Clear [facility] Work Phone: Urine color determinationon 10-18-2021 Color (U) Straw Yellow [facility] Work Phone: Urine glucose detectionon Glucose Ql (U) Normal mg/dl Normal [facility] Work Phone: Urine leukocyte esterase det ection by dipstickon 10-18-2021 Leukocyte esterase Test strip Ql (U) 500 /ul Negative [facility] Work Phone: Urine pHon 10-18-2021 pH (U) 6.0 [pH] 5.0 - 8.0 [facility] Work Phone: Urine sediment bacteria coun t by microscopy (number/high power field)on 10-18-2021 Bacteria LM.HPF (Urine sed) [#/Area] 4 /[HPF] None Seen [facility] Work Phone: Urine specific gravity measu rementon 10-18-2021 Specific gravity (U) [Rel density] 1.015 1.002-1.030 [facility] Work Phone: Urobilinogen Auto test strip Ql (U)on 10-18-2021 Urobilinogen Ql (U) Normal mg/dl Normal [facility] Work Phone: T3, FREE (TRIDOTHYRONINE) ([phone])Ordered By: Associate Account Executive on 12-19-2020 Free T3 [Mass/Vol] 2.7 pg/mL Normal 2.0-4.4 [facility]; [facility] Work Phone: T4, FREE (THYROXINE) ([phone]) Ordered By: Associate Account Executive on 12-19-2020 Free T4 [Mass/Vol] 1.03 ng/dL Normal 0.82-1.77 [facility]; [facility] Work Phone: TSH (THYROID STIMULATING HOR AAKASH) (15219)Ordered By: Associate Account Executive on 12-19-2020 TSH Qn 1.490 {uIU/mL} Normal 0.450-4.500 Comprehen sive Internal Medicine; [facility] Work Phone: Blood Glucose , Office ([phone])Ordered By: Caterina Oneil on 11-01-2020 Glucose Glucometer (BldC) [Moles/Vol] 162 1 Normal [facility]; [facility] Work Phone: HgA1C , Office ([phone])Ordere d By: Caterina Oneil on 11-01-2020 HbA1c (Bld) [Mass fraction] 6.2 % Normal 4.6 - 7.1 [facility]; [facility] Work Phone: Blood Glucose , Office ([phone])Ordered By: Bhavana Spears on 07-09-2020 Glucose Glucometer (BldC) [Moles/Vol] 191 1 Normal [facility]; [facility] Work Phone: HgA1C , Office ([phone])Ordere d By: Neida Lopez on 07-09-2020 HbA1c (Bld) [Mass fraction] 7.7 % Abnormal 4.6 - 7.1 [facility]; [facility] Work Phone: SHARON (ANTINUCLEAR ANTIBODY) ( [phone])Ordered By: Associate Account Executive on 06-29-2020 Nuclear Ab Ql (S) Negative Normal Compreh ensive Internal Medicine; [facility] Work Phone: Comment on above: Test(s) 489615-JXV-Q ; 071503-BLZ-J; 181022-Dbvdajqhuaycf; 024866-Uyyqgvdbgjj, Total; 841170-CYV-H (Total); 683988-Gbctv LDL-P; 943571-GXX Size; 397824-ML-QL Scorewas developed and its performance characteristics determinedby [employer]. It has not been cleared or approved by the Foodand Drug Administration.PATIENT WAS FASTINGPERFORMED BY: [address] [id number] BY: Aesica PharmaceuticalsHudson County Meadowview HospitalSwdtly3403 [facility] [id number] C-REACTIVE PROTEIN (85484)Or dered By: Associate Account Executive on 06-29-2020 CRP [Mass/Vol] 16 mg/L Abnormal 0-10 [facility] Internal Medicine; [facility] Work Phone: Comment on above: Test(s) 821963-ZML-S ; 883170-ZKA-Q; 622374-Fsxsezzhfgjff; 026160-Sbruboaauoh, Total; 760817-TXG-K (Total); 675656-Kzaji LDL-P; 718940-BBQ Size; 129806-KO-EE Scorewas developed and its performance characteristics determinedby [employer]. It has not been cleared or approved by the Foodand Drug Administration.PATIENT WAS FASTINGPERFORMED BY: [employer] [id number] BY: Aesica PharmaceuticalsHudson County Meadowview HospitalDjrzxm9747 [facility] [id number] CALCIFIDIOL (58826) VIT D 25 Ordered By: Associate Account Executive on 06-29-2020 25-hydroxyvitamin D [Mass/Vol] 26.5 ng/mL Abnormal 30.0-100.0 [facility]; [facility] Work Phone: Comment on above: Vitamin D deficiency has been defined by the [facility] and an Endocrine Society practice guideline as alevel of serum 25-OH vitamin D less than 20 ng/mL (1,2).The Endocrine Society went on to further define vitamin Dinsufficiency as a level between 21 and 29 ng/mL (2).1. IOM ([facility]). 2010. Dietary reference intakes for calcium and D. [place]: The National Academies Press.2. Jaylon MF, Yue ADRIAN, Jessi STALEY, et al. Evaluation, treatment, and prevention of vitamin D deficiency: an Endocrine Society clinical practice guideline. JCEM. 2010; 96(7):1911-30. Test(s) 778410-OLH-Z ; 755537-EXO-P; 209090-Udrlbgqbjvlol; 812183-Ckfsdqbqlro, Total; 077003-YMP-L (Total); 204956-Nqyci LDL-P; 345891-NFU Size; 556397-IW-PG Scorewas developed and its performance characteristics determinedby [employer]. It has not been cleared or approved by the Foodand Drug Administration.PATIENT WAS FASTINGPERFORMED BY: [employer] [address] [id number] BY: [facility] Sohfcg4327 [facility] [id number] CBC (AUTO) (82862)Ordered By : Associate Account Executive on 06-29-2020 Erythrocyte distribution width (RBC) [Ratio] 13.6 % Normal 11.7-15.4 [facility]; [facility] Work Phone: Comment on above: Test(s) 254187-ODS-X ; 370417-EQD-W; 999721-Mufpbvirhxved; 687615-Umkzxbxrvoz, Total; 470756-TSW-Y (Total); 678264-Zxvbe LDL-P; 904345-LFX Size; 135330-TM-EC Scorewas developed and its performance characteristics determinedby [employer]. It has not been cleared or approved by the Foodand Drug Administration.PATIENT WAS FASTINGPERFORMED BY: [employer] [address] [id number] BY: [facility] Zsdljs0994 [facility] [id number] Hematocrit (Bld) [Volume fraction] 40.9 % Normal 34.0-46.6 [facility]; [facility] Work Phone: Comment on above: Test(s) 973387-EFV-K ; 968330-TJC-I; 686525-Kqhuegkrzjxof; 755430-Wfvqnwigeyh, Total; 188072-OBR-E (Total); 464159-Xwdhm LDL-P; 227632-HLA Size; 149691-PW-PX Scorewas developed and its performance characteristics determinedby [employer]. It has not been cleared or approved by the Foodand Drug Administration.PATIENT WAS FASTINGPERFORMED BY: [employer] [address] [id number] BY: [employer] Ukjlnx6201 [facility] [id number] Hemoglobin (Bld) [Mass/Vol] 13.8 g/dL Normal 11.1-15.9 [facility] Internal Medicine; [facility] Work Phone: Comment on above: Test(s) 383078-ATT-N ; 007928-BJE-S; 515821-Tajbtkxdzrcyj; 091046-Rxuamygygdh, Total; 928731-TBR-D (Total); 929876-Yubdh LDL-P; 999294-CPJ Size; 801971-OZ-HJ Scorewas developed and its performance characteristics determinedby [employer]. It has not been cleared or approved by the Foodand Drug Administration.PATIENT WAS FASTINGPERFORMED BY: [employer] [address] [id number] BY: [employer]6370 [facility] [id number] MCH (RBC) [Entitic mass] 29.2 pg Normal 26.6-33.0 [facility] Internal Medicine; [facility] Work Phone: Comment on above: Test(s) 631615-EEL-A ; 493862-VKR-T; 606810-Fvilyqfxhgmyg; 711615-Eeslxzyyxhc, Total; 437006-XRW-L (Total); 779345-Cdhsr LDL-P; 244322-PVD Size; 467098-FO-JS Scorewas developed and its performance characteristics determinedby [employer]. It has not been cleared or approved by the Foodand Drug Administration.PATIENT WAS FASTINGPERFORMED BY: [employer] [address] [id number] BY: [facility] Wjukbg3009 [facility] [id number] MCHC (RBC) [Mass/Vol] 33.7 g/dL Normal 31.5-35.7 [facility] prehensive Internal Medicine; [facility] Work Phone: Comment on above: Test(s) 776042-MBR-Z ; 806455-DXB-B; 373357-Gfvodinifotyf; 263019-Myvsglsqqob, Total; 906953-LBP-I (Total); 239300-Vhark LDL-P; 943421-AIL Size; 395059-TT-JP Scorewas developed and its performance characteristics determinedby [employer]. It has not been cleared or approved by the Foodand Drug Administration.PATIENT WAS FASTINGPERFORMED BY: [employer] [address] [id number] BY: [employer]70 [facility]oundsCl[facility] [id number] MCV (RBC) [Entitic vol] 87 fL Normal 79-97 [facility]; [facility] Work Phone: Comment on above: Test(s) 734094-IJU-L ; 169613-ZFQ-G; 696453-Fhunyitpejioy; 420287-Akqgiaixonb, Total; 438034-MYG-U (Total); 644044-Vdhml LDL-P; 820287-SPY Size; 382329-PL-YB Scorewas developed and its performance characteristics determinedby [employer]. It has not been cleared or approved by the Foodand Drug Administration.PATIENT WAS FASTINGPERFORMED BY: [employer] [address] [id number] BY: [employer]70 Search123[facility] [id number] Platelets (Bld) [#/Vol] 284 10*3/uL Normal 150-450 [facility]; [facility] Work Phone: Comment on above: Test(s) 593476-KTC-U ; 209173-JXT-E; 161738-Blrpgqjrrafko; 423883-Stevwwghoto, Total; 314035-YLX-X (Total); 190657-Bxdbq LDL-P; 919796-OTJ Size; 497950-TE-QF Scorewas developed and its performance characteristics determinedby [employer]. It has not been cleared or approved by the Foodand Drug Administration.PATIENT WAS FASTINGPERFORMED BY: [employer] [address] [id number] BY: [employer]70 Search123[facility] [id number] RBC (Bld) [#/Vol] 4.72 10*6/uL Normal 3.77-5.28 [facility] Internal Medicine; [facility] Work Phone: Comment on above: Test(s) 170039-GCJ-U ; 233182-EKE-D; 264562-Itbhjcsgujtkx; 794351-Bazzudhxhtd, Total; 791718-GHL-H (Total); 292651-Nvhys LDL-P; 972341-JMU Size; 108516-JE-ZF Scorewas developed and its performance characteristics determinedby [employer]. It has not been cleared or approved by the Foodand Drug Administration.PATIENT WAS FASTINGPERFORMED BY: [employer] [place] [address] [id number] BY: [employer]70 [facility]Cl[facility] [id number] WBC (Bld) [#/Vol] 7.2 10*3/uL Normal 3.4-10.8 [facility] Internal Medicine; [facility] Work Phone: Comment on above: Test(s) 347672-HBC-M ; 590218-JDT-X; 305561-Jocbhimcrdmxy; 006492-Dmycdswliyp, Total; 787333-UCR-Q (Total); 080967-Uprtx LDL-P; 481332-YAR Size; 188913-QW-GJ Scorewas developed and its performance characteristics determinedby [employer]. It has not been cleared or approved by the Foodand Drug Administration.PATIENT WAS FASTINGPERFORMED BY: Lemon [employer] [id number] BY: [employer]6370 [address] Asc[facility] Providence HospitalNextcar.comHugh Chatham Memorial Hospital [id number] FSH AND LH (07680)Ordered By : Associate Account Executive on 06-29-2020 Follitropin Qn 37.4 m[IU]/mL Normal Compreh [facility]; [facility] Work Phone: Comment on above: Adult Female: Follic ular phase 3.5 - 12.5 Ovulation phase 4.7 - 21.5 Luteal phase 1.7 - 7.7 Postmenopausal 25.8 - 134.8 Test(s) 018112-LND-S ; 266984-NRL-V; 069856-Fetacvpgojets; 126220-Uobpxhuczgy, Total; 777786-YSI-F (Total); 163255-Cjqoo LDL-P; 831170-LPT Size; 485014-HF-VC Scorewas developed and its performance characteristics determinedby [employer]. It has not been cleared or approved by the Foodand Drug Administration.PATIENT WAS FASTINGPERFORMED BY: Lemon [employer] [id number] BY: [employer]70 [facility] [place] [id number] Lutropin Qn 26.5 m[IU]/mL Normal Comprehens jeff Internal Medicine; [facility] Work Phone: Comment on above: Adult Female: Follic ular phase 2.4 - 12.6 Ovulation phase 14.0 - 95.6 Luteal phase 1.0 - 11.4 Postmenopausal 7.7 - 58.5 Test(s) 001728-NDO-J ; 668716-DWA-A; 462268-Mbylvqdndkdpz; 424955-Rrfodepcpuc, Total; 239701-TFS-V (Total); 240757-Bvfhe LDL-P; 169600-YNA Size; 688170-OH-GG Scorewas developed and its performance characteristics determinedby [employer]. It has not been cleared or approved by the Foodand Drug Administration.PATIENT WAS FASTINGPERFORMED BY: Lemon [employer] [id number] BY: [facility] Emvcap5462 Search123[facility] [id number] Folate (51019)Ordered By: [address] [employer] Installer on 06-29-2020 Folate [Mass/Vol] 5.9 ng/mL Normal Compreh ensive Internal Medicine; [facility] Work Phone: Comment on above: A serum folate tyrel ntration of less than 3.1 ng/mL isconsidered to represent clinical deficiency. Test(s) 667685-TOO-P ; 647406-DSO-P; 702165-Vedhdnfklnmna; 365003-Nhxopfzkiwg, Total; 897912-QFC-Q (Total); 106297-Ohyoh LDL-P; 688966-BSZ Size; 906394-IH-VB Scorewas developed and its performance characteristics determinedby [employer]. It has not been cleared or approved by the Foodand Drug Administration.PATIENT WAS FASTINGPERFORMED BY: [employer] [address] [id number] BY: [employer]70 [facility] [id number] METABOLIC PANEL, COMPREHENSI VE (01185)Ordered By: Associate Account Executive on 06-29-2020 Albumin [Mass/Vol] 3.8 g/dL Normal 3.8-4.8 [facility] Internal Medicine; [facility] Work Phone: Comment on above: Test(s) 551617-GPO-R ; 571495-FQW-I; 842089-Ijravaugqyytz; 103501-Vjtmuikvmmc, Total; 222097-MNT-C (Total); 238117-Zmjty LDL-P; 855535-XKA Size; 130341-KF-QL Scorewas developed and its performance characteristics determinedby [employer]. It has not been cleared or approved by the Foodand Drug Administration.PATIENT WAS FASTINGPERFORMED BY: Alk[employer]es [address] [id number] BY: [employer]6370 [facility] [id number] Albumin/Globulin [Mass ratio] 1.3 {ratio} Normal 1.2-2.2 [facility] Internal Medicine; [facility] Work Phone: Comment on above: Test(s) 106391-HNE-R ; 068849-ZVM-F; 877929-Awalwxeafyeuj; 073919-Bzrlwkampjr, Total; 382716-BNU-L (Total); 957907-Ykxog LDL-P; 769378-BVC Size; 907868-VD-WG Scorewas developed and its performance characteristics determinedby [employer]. It has not been cleared or approved by the Foodand Drug Administration.PATIENT WAS FASTINGPERFORMED BY: [facility] [address] [place] [id number] BY: [facility]6370 [facility] [id number] ALP [Catalytic activity/Vol] 142 U/L Abnormal 39-117 [facility]; [facility] Work Phone: Comment on above: Effective July 02, 2020 Alkaline Phosphatase reference interval will be changing to: Age Male Female 0 - 5 days 52 - 127 52 - 127 6 - 10 days 34 - 242 34 - 242 11 - 20 days 114 - 357 114 - 357 21 - 30 days 107 - 494 107 - 494 1 - 2 months 162 - 539 162 - 539 3 - 6 months 141 - 452 141 - 452 7 - 11 months 128 - 401 128 - 401 12 months - 6 years 170 - 369 170 - 369 7 - 12 years 161 - 409 161 - 409 13 years 166 - 435 83 - 227 14 years 121 - 375 68 - 161 15 years 94 - 279 60 - 134 16 years 78 - 207 55 - 121 17 years 67 - 161 50 - 113 18 - 20 years 55 - 125 45 - 106 >20 years 48 - 121 48 - 121 Test(s) 625416-LIO-O ; 091312-ZZD-P; 809054-Yfiafxmsgbylu; 508211-Wdveduiskog, Total; 006705-KFW-P (Total); 185063-Agiiu LDL-P; 918995-CAR Size; 029154-IK-BG Scorewas developed and its performance characteristics determinedby [employer]. It has not been cleared or approved by the Foodand Drug Administration.PATIENT WAS FASTINGPERFORMED BY: [place] [address] [facility] [id number] BY: [facility] Memorial HospitalCC videoHudson County Meadowview HospitalRlnvnl0893 [facility] [id number] ALT [Catalytic activity/Vol] 33 U/L Abnormal 0-32 [facility]; [facility] Work Phone: Comment on above: Test(s) 225068-NXT-O ; 077129-VWL-K; 836325-Bygrtfosaclik; 625162-Mwpkboflhvp, Total; 167371-HYC-W (Total); 213698-Mrzwv LDL-P; 018433-FOI Size; 621967-LZ-SC Scorewas developed and its performance characteristics determinedby [employer]. It has not been cleared or approved by the Foodand Drug Administration.PATIENT WAS FASTINGPERFORMED BY: [employer]es [address] [id number] BY: [employer]6[address] [facility] [id number] AST [Catalytic activity/Vol] 43 U/L Abnormal 0-40 [facility]; [facility] Work Phone: Comment on above: Test(s) 951135-FGX-F ; 841702-XOB-Q; 982402-Wjdsygrxhyplm; 205151-Vbvkwtnfzxw, Total; 281901-OKS-R (Total); 148816-Nugin LDL-P; 829984-OXY Size; 598682-VR-RC Scorewas developed and its performance characteristics determinedby [employer]. It has not been cleared or approved by the Foodand Drug Administration.PATIENT WAS FASTINGPERFORMED BY: Al[employer]es [address] [id number] BY: [employer]70 Search123[facility] [id number] Bilirubin [Mass/Vol] 0.2 mg/dL Normal 0.0-1.2 [facility] Internal Medicine; [facility] Work Phone: Comment on above: Test(s) 720867-ZFP-F ; 490323-BFW-H; 100135-Wlhiulilxfpqn; 899453-Hbsjzntztyv, Total; 894108-ASW-B (Total); 588382-Zkpnh LDL-P; 709570-GRY Size; 947246-TT-BV Scorewas developed and its performance characteristics determinedby [employer]. It has not been cleared or approved by the Foodand Drug Administration.PATIENT WAS FASTINGPERFORMED BY: Al[employer] [address] [id number] BY: [employer]6370 [facility] [id number] Calcium [Mass/Vol] 9.5 mg/dL Normal 8.7-10.3 [facility] Internal Medicine; [facility] Work Phone: Comment on above: Test(s) 208451-WQL-P ; 137523-CMR-M; 714731-Spupelpygyxxb; 065325-Torttqjqzap, Total; 144290-KEH-N (Total); 147419-Jrwix LDL-P; 749609-TXA Size; 425595-RA-MV Scorewas developed and its performance characteristics determinedby [employer]. It has not been cleared or approved by the Foodand Drug Administration.PATIENT WAS FASTINGPERFORMED BY: Alkermes [address] [id number] BY: [employer]70 Search123[facility] [id number] Chloride [Moles/Vol] 101 mmol/L Normal 96-106 [facility] Internal Medicine; [facility] Work Phone: Comment on above: Test(s) 712564-GYC-Z ; 049520-HKC-H; 749324-Auspvpexmyllp; 215869-Qugsduqiewc, Total; 654034-LHE-G (Total); 381263-Wvzck LDL-P; 301849-ADQ Size; 539282-RZ-HX Scorewas developed and its performance characteristics determinedby [employer]. It has not been cleared or approved by the Foodand Drug Administration.PATIENT WAS FASTINGPERFORMED BY: Alkermes [address] [id number] BY: [employer]6[address] [facility]Former[facility] [id number] CO2 [Moles/Vol] 25 mmol/L Normal 20-29 [facility] Internal Medicine; [facility] Work Phone: Comment on above: Test(s) 536618-TIK-G ; 363669-SPU-B; 424950-Rnfxjcoyyzqul; 067750-Hnppnxojpqa, Total; 763488-BHC-Z (Total); 851209-Nbitk LDL-P; 625749-KFD Size; 641864-TI-UA Scorewas developed and its performance characteristics determinedby [employer]. It has not been cleared or approved by the Foodand Drug Administration.PATIENT WAS FASTINGPERFORMED BY: [employer] [id number] BY: Aesica PharmaceuticalsHudson County Meadowview HospitalHgjpnl4498 [facility] [id number] Creatinine [Mass/Vol] 0.88 mg/dL Normal 0.57-1.00 [facility] prehensive Internal Medicine; [facility] Work Phone: Comment on above: Test(s) 713235-CUQ-T ; 708104-DKE-S; 009534-Bnwhlkgngkfuq; 963683-Pkgfehhcuut, Total; 539084-RHY-K (Total); 374248-Uxiws LDL-P; 957856-EGX Size; 484808-LJ-CL Scorewas developed and its performance characteristics determinedby [employer]. It has not been cleared or approved by the Foodand Drug Administration.PATIENT WAS FASTINGPERFORMED BY: [employer] [address] [id number] BY: Aesica PharmaceuticalsHudson County Meadowview HospitalCuvnjv9325 [facility] [id number] GFR/1.73 sq M.predicted among blacks CKD-EPI (S/P/Bld) [Vol rate/Area] 81 mL/min/1.73 Normal [facility]; [facility] Work Phone: Comment on above: [facility] in compliance with the current recommendations of the National Kidney Foundation. [facility] will update reporting as new guidelines are published from the NKF-ASN Task force. Test(s) 275459-QDW-K ; 458536-RAA-L; 203979-Qvvmsoqpvttcu; 080962-Lnkxezntvuk, Total; 516611-QPH-G (Total); 378158-Umcnx LDL-P; 287832-VGK Size; 346949-XO-PE Scorewas developed and its performance characteristics determinedby [employer]. It has not been cleared or approved by the Foodand Drug Administration.PATIENT WAS FASTINGPERFORMED BY: [employer] [address] [id number] BY: Aesica PharmaceuticalsHudson County Meadowview HospitalFqwcca7380 [facility] [id number] GFR/1.73 sq M.predicted among non-blacks CKD-EPI (S/P/Bld) [Vol rate/Area] 70 mL/min/1.73 Normal [facility]; [facility] Work Phone: Comment on above: Test(s) 346944-KOL-E ; 453655-QPY-M; 399288-Zuixfqfrtepjm; 635370-Wkidvvyagsj, Total; 941221-JDQ-Y (Total); 362277-Kblaz LDL-P; 509245-FSH Size; 947620-VE-MG Scorewas developed and its performance characteristics determinedby [employer]. It has not been cleared or approved by the Foodand Drug Administration.PATIENT WAS FASTINGPERFORMED BY: Lemon [employer] [id number] BY: [employer]6370 [facility]egaMer[facility] [id number] Globulin (S) [Mass/Vol] 2.9 g/dL Normal 1.5-4.5 [facility] Internal Medicine; [facility] Work Phone: Comment on above: Test(s) 155546-XNY-U ; 995347-YUC-L; 718013-Gpjxqjcnivqup; 413507-Rtdiqfaffkw, Total; 536222-HGN-J (Total); 122785-Mexcb LDL-P; 326705-JEG Size; 506791-QM-HY Scorewas developed and its performance characteristics determinedby [employer]. It has not been cleared or approved by the Foodand Drug Administration.PATIENT WAS FASTINGPERFORMED BY: Alkermes [address] [id number] BY: [employer]6370 [facility] LawnNextcar.comHugh Chatham Memorial Hospital [id number] Glucose [Mass/Vol] 188 mg/dL Abnormal 65-99 [facility] Internal Medicine; [facility] Work Phone: Comment on above: Test(s) 949543-QNZ-N ; 608072-SVN-G; 026070-Cpngdszpwjzyb; 550070-Frfyledkepg, Total; 352179-WIQ-B (Total); 566411-Bnzdc LDL-P; 681011-ROR Size; 421692-QO-XT Scorewas developed and its performance characteristics determinedby [employer]. It has not been cleared or approved by the Foodand Drug Administration.PATIENT WAS FASTINGPERFORMED BY: [employer] [id number] BY: [employer] Kmunkp1118 [address] WalkHubFormer[facility] [id number] Potassium [Moles/Vol] 4.6 mmol/L Normal 3.5-5.2 [facility]erens[facility]; [facility] Work Phone: Comment on above: Test(s) 374722-MKJ-E ; 707472-TFY-P; 450477-Altfpjtjffxrn; 461051-Inpyufhntyb, Total; 965217-GTS-N (Total); 991936-Mwljo LDL-P; 295310-GTC Size; 710681-DL-HU Scorewas developed and its performance characteristics determinedby [employer]. It has not been cleared or approved by the Foodand Drug Administration.PATIENT WAS FASTINGPERFORMED BY: Alk[employer]es [address] [id number] BY: [employer]70 [address] WalkHubFormer[facility] [id number] Protein [Mass/Vol] 6.7 g/dL Normal 6.0-8.5 [facility] Internal Medicine; [facility] Work Phone: Comment on above: Test(s) 680029-SXJ-Q ; 106218-MKD-K; 781170-Tvmuicweytoud; 246388-Cfwoobehxde, Total; 233896-LBG-X (Total); 816780-Nmknn LDL-P; 083662-FXD Size; 538298-KH-SC Scorewas developed and its performance characteristics determinedby [employer]. It has not been cleared or approved by the Foodand Drug Administration.PATIENT WAS FASTINGPERFORMED BY: Alk[employer]es [address] [id number] BY: [employer] Yuegoh2378 [facility] [id number] Sodium [Moles/Vol] 139 mmol/L Normal 134-144 [facility] Internal Medicine; [facility] Work Phone: Comment on above: Test(s) 019046-WOK-E ; 930648-XLF-X; 922579-Ohlhowwegoxhk; 842571-Qpolrlntxcm, Total; 496984-SUM-C (Total); 321290-Xtovt LDL-P; 006991-CTS Size; 809176-UC-PD Scorewas developed and its performance characteristics determinedby [employer]. It has not been cleared or approved by the Foodand Drug Administration.PATIENT WAS FASTINGPERFORMED BY: Lemon Curve[address] [id number] BY: [facility] Cfnvjy4131 [facility] [id number] Urea nitrogen [Mass/Vol] 14 mg/dL Normal 8-27 [facility]; [facility] Work Phone: Comment on above: Test(s) 213953-WHR-F ; 060997-ESW-R; 049225-Haufijzuqutda; 454094-Axaqsnmxdtk, Total; 423616-MGE-U (Total); 569438-Hieth LDL-P; 844827-RNF Size; 270928-LD-LG Scorewas developed and its performance characteristics determinedby [employer]. It has not been cleared or approved by the Foodand Drug Administration.PATIENT WAS FASTINGPERFORMED BY: Alkermes [address] [id number] BY: [facility] Ncjwfv8720 [facility] [id number] Urea nitrogen/Creatinine [Mass ratio] 16 mg/mg Normal 12-28 [facility]; [facility] Work Phone: Comment on above: Test(s) 562905-DNI-I ; 287712-ZEC-Z; 278563-Yddlrtavfnirx; 858835-Jtcsvmztaat, Total; 688758-UAY-O (Total); 555706-Sqkjs LDL-P; 108034-GZX Size; 464000-BF-VH Scorewas developed and its performance characteristics determinedby [employer]. It has not been cleared or approved by the Foodand Drug Administration.PATIENT WAS FASTINGPERFORMED BY: Alkermes [address] [id number] BY: Assemblage Dihyyk7790 [facility] [id number] MICROALB;CREAT RATION, RAND UR (28933)Ordered By: Associate Account Executive on 06-29-2020 Albumin DL <= 20 mg/L (U) [Mass/Vol] 4.1 ug/mL Normal [facility]; [facility] Work Phone: Comment on above: Test(s) 968091-OIT-L ; 339732-WCF-E; 045078-Nfosfuplysref; 551640-Brosrihbyhr, Total; 736284-ELF-X (Total); 401760-Imqkp LDL-P; 801003-RGT Size; 575099-GX-KE Scorewas developed and its performance characteristics determinedby [employer]. It has not been cleared or approved by the Foodand Drug Administration.PATIENT WAS FASTINGPERFORMED BY: Alkermes [address] [id number] BY: [employer]70 [facility] [id number] Albumin/Creatinine (U) [Mass ratio] 3 {mg/g_creat} Normal 0-29 [facility]; [facility] Work Phone: Comment on above: Normal: 0 - 29 Moder ately increased: 30 - 300 Severely increased: >300 Test(s) 601984-MDU-A ; 003974-DSA-N; 200738-Dnoptmuvuzisy; 176403-Lzgusfqhswg, Total; 925465-TOD-W (Total); 277301-Loiab LDL-P; 211688-AFI Size; 780986-VX-FB Scorewas developed and its performance characteristics determinedby [employer]. It has not been cleared or approved by the Foodand Drug Administration.PATIENT WAS FASTINGPERFORMED BY: Alkermes [address] [id number] BY: [employer] Continuitylin6370 [facility] [id number] Creatinine (U) [Mass/Vol] 124.2 mg/dL Normal [facility]; [facility] Work Phone: Comment on above: Test(s) 323570-JSH-M ; 976279-YAF-V; 811413-Fuxevikaiffnd; 639274-Hoevhbzpyqg, Total; 592672-IXO-Q (Total); 377233-Jlede LDL-P; 429883-YSH Size; 201552-WT-SA Scorewas developed and its performance characteristics determinedby [employer]. It has not been cleared or approved by the Foodand Drug Administration.PATIENT WAS FASTINGPERFORMED BY: Alkermes [address] [id number] BY: [employer]6370 [facility] [id number] NMR Profile (70863)Ordered B y: Associate Account Executive on 06-29-2020 Cholesterol [Mass/Vol] 148 mg/dL Normal 100-199 [facility] Internal [facility]; [facility] Work Phone: Comment on above: Test(s) 290277-VGD-D ; 913401-QFV-W; 793267-Uihakpqirvnej; 844593-Xottpfbjavx, Total; 494626-VUY-Z (Total); 850326-Dqjip LDL-P; 182564-VLG Size; 643064-ZC-HU Scorewas developed and its performance characteristics determinedby [employer]. It has not been cleared or approved by the Foodand Drug Administration.PATIENT WAS FASTINGPERFORMED BY: Alkermes [address] [id number] BY: Aesica PharmaceuticalsHudson County Meadowview HospitalLvdhgj5622 [facility] [id number] Lipoprotein.alpha [Moles/Vol] 21.1 umol/L Abnormal [facility]; [facility] Work Phone: Comment on above: Test(s) 843581-DNI-Y ; 611620-VSL-V; 522125-Egxyyzfctkupa; 941200-Rgepfjskiel, Total; 248421-PIX-R (Total); 298521-Vpnsu LDL-P; 854490-MMB Size; 039499-MA-WN Scorewas developed and its performance characteristics determinedby [employer]. It has not been cleared or approved by the Foodand Drug Administration.PATIENT WAS FASTINGPERFORMED BY: [facility] Ohdgigjzta5912 [facility] [id number] BY: CB [facility] Zykffe0184 [facility] [id number] Lipoprotein.beta.subpa rticle [Entitic length] 20.2 nm Abnormal [facility]; [facility] Work Phone: Comment on above: INTERPRETATIVE INFORMATION PARTICLE CONCENTRATION AND SIZE <--Lower CVD Risk Higher CVD Risk--> LDL AND HDL PARTICLES Percentile in Reference Population HDL-P (total) High 75th 50th 25th Low >34.9 34.9 30.5 26.7 <26.7 . Small LDL-P Low 25th 50th 75th High <117 117 527 839 >839 . LDL Size <-Large (Pattern A)-> <-Small (Pattern B)-> 23.0 20.6 20.5 19.0 Small LDL-P and LDL Size are associated with CVD risk, but not afterLDL-P is taken into account. Test(s) 391461-GHI-F ; 873705-ZWA-T; 800049-Qgjewaerbaieh; 116072-Qdbotzbnijy, Total; 778594-YSH-N (Total); 430680-Rinio LDL-P; 972021-IXO Size; 477118-ZO-TL Scorewas developed and its performance characteristics determinedby [employer]. It has not been cleared or approved by the Foodand Drug Administration.PATIENT WAS FASTINGPERFORMED BY: Lemon Curveton1447 [facility] [id number] BY: [employer] Rdwoht2464 [facility] [id number] Lipoprotein.beta.subpa rticle [Moles/Vol] 1647 nmol/L Abnormal [facility]; [facility] Work Phone: Comment on above: Low < 1000 Moderate 1000 - 1299 Borderline-High 1300 - 1599 High 1600 - 2000 Very High > 2000 Test(s) 343453-CRU-Q ; 596744-QKH-M; 598037-Qugftokwahnno; 322933-Suxdohcgfrp, Total; 445783-POX-I (Total); 936058-Dtvle LDL-P; 166568-WTP Size; 094636-AQ-LW Scorewas developed and its performance characteristics determinedby [employer]. It has not been cleared or approved by the Foodand Drug Administration.PATIENT WAS FASTINGPERFORMED BY: Alkermes [address] [id number] BY: [employer]6370 [facility] [id number] Lipoprotein.beta.subpa rticle.small [Moles/Vol] 1121 nmol/L Abnormal [facility]; [facility] Work Phone: Comment on above: Test(s) 061016-RRK-Y ; 741519-AGL-B; 718025-Yldoxrxdfjqjj; 846574-Ybcixouzafc, Total; 981887-PNQ-F (Total); 536212-Pqjga LDL-P; 660791-OWG Size; 090040-RU-TO Scorewas developed and its performance characteristics determinedby [employer]. It has not been cleared or approved by the Foodand Drug Administration.PATIENT WAS FASTINGPERFORMED BY: Alkermes [address] [id number] BY: Lilianna Spinal SolutionsHudson County Meadowview HospitalFqjbqm3111 [facility] [id number] Triglyceride [Mass/Vol] 158 mg/dL Abnormal 0-149 [facility]; [facility] Work Phone: Comment on above: Test(s) 143182-QBZ-I ; 336075-FHK-N; 375893-Kcztyjodiedwx; 523557-Bvmvfyipwkn, Total; 273943-WLP-S (Total); 093483-Oshib LDL-P; 139178-YPS Size; 617863-JN-ZV Scorewas developed and its performance characteristics determinedby [employer]. It has not been cleared or approved by the Foodand Drug Administration.PATIENT WAS FASTINGPERFORMED BY: Assemblage [address] [id number] BY: [employer]6370 [facility] [id number] NMR Profile (46085) 94 mg/dL Normal 0-99 [facility]; [facility] Work Phone: Comment on above: . Optimal < 100 Abov e optimal 100 - 129 Borderline 130 - 159 High 160 - 189 Very high > 189 . Test(s) 178317-GWB-C ; 723477-DXG-X; 322587-Bvskrmhubcfav; 844472-Chmvjtiltpb, Total; 670368-IHN-V (Total); 012141-Lrzum LDL-P; 969734-XGX Size; 976494-TJ-JY Scorewas developed and its performance characteristics determinedby [employer]. It has not been cleared or approved by the Foodand Drug Administration.PATIENT WAS FASTINGPERFORMED BY: Assemblage [address] [id number] BY: [employer]6370 [facility] [id number] NMR Profile (57094) 26 mg/dL Abnormal [facility]; [facility] Work Phone: Comment on above: Test(s) 998437-CXD-W ; 705246-ISM-A; 195624-Ydehpzehkqswy; 592640-Vzcuuyvcvwq, Total; 959496-XFI-J (Total); 218149-Ilnmn LDL-P; 710295-PRI Size; 676191-QM-OW Scorewas developed and its performance characteristics determinedby [employer]. It has not been cleared or approved by the Foodand Drug Administration.PATIENT WAS FASTINGPERFORMED BY: Alkermes [address] [id number] BY: Aesica PharmaceuticalsHudson County Meadowview HospitalSskqjw6510 [facility] [id number] NMR Profile (33853) 158 mg/dL Abnormal 0-149 [facility]; [facility] Work Phone: NMR Profile (38162) 148 mg/dL Normal 100-199 [facility]; [facility] Work Phone: RHEUMATOID FACTOR-QUANT (864 45)Ordered By: Associate Account Executive on 06-29-2020 Rheumatoid factor Qn [IU]/mL Normal 0.0-13.9 [facility]; [facility] Work Phone: Comment on above: Test(s) 855667-XOV-Z ; 711521-NRU-O; 244597-Zgzuubrsvwgsh; 212671-Utylgllsarr, Total; 728950-LZT-V (Total); 145763-Vyolg LDL-P; 181423-ALL Size; 389553-TU-SG Scorewas developed and its performance characteristics determinedby [employer]. It has not been cleared or approved by the Foodand Drug Administration.PATIENT WAS FASTINGPERFORMED BY: Alkermes Ybhrauetwh3894 [facility] [id number] BY: Assemblage Crexhh6870 [facility] [id number] SED RATE ERYTHROCYTE (34062) Ordered By: Associate Account Executive on 06-29-2020 ESR (Bld) [Velocity] 20 mm/h Normal 0-40 [facility] rehensive Internal Medicine; [facility] Work Phone: Comment on above: Test(s) 695725-NUR-J ; 205197-FBT-O; 893475-Qaunlimivyhxf; 851094-Alcagplzard, Total; 387947-GJK-S (Total); 649325-Lqyxg LDL-P; 149965-ONM Size; 175393-MH-JL Scorewas developed and its performance characteristics determinedby [employer]. It has not been cleared or approved by the Foodand Drug Administration.PATIENT WAS FASTINGPERFORMED BY: [employer] [facility] [id number] BY: [employer]6370 [facility] [id number] TSH (21819)Ordered By: Gullivearthe m [address] [employer] Installer on 06-29-2020 TSH Qn 1.630 {uIU/mL} Normal 0.450-4.500 Comprehen sive Internal Medicine; [facility] Work Phone: Comment on above: Test(s) 505065-DJV-Z ; 433375-CQI-C; 319494-Rmkvlkmlzcvmh; 534713-Nelxsznvfwk, Total; 880580-KKP-O (Total); 178775-Ngrdd LDL-P; 408174-NEV Size; 473681-GM-PA Scorewas developed and its performance characteristics determinedby [employer]. It has not been cleared or approved by the Foodand Drug Administration.PATIENT WAS FASTINGPERFORMED BY: [employer]image [facility] [id number] BY: [employer]6370 [facility] [id number] URINALYSIS W MICROSCOPY (810 00)Ordered By: Associate Account Executive on 06-29-2020 Appearance (U) Clear Normal Comprehens jeff Internal Medicine; [facility] Work Phone: Comment on above: Test(s) 458428-IDQ-R ; 608143-KRR-U; 073414-Njjyncjormsez; 039635-Qzkjbcdbyuk, Total; 448078-VVZ-W (Total); 528780-Jajpw LDL-P; 018402-DVL Size; 156117-SX-AC Scorewas developed and its performance characteristics determinedby [employer]. It has not been cleared or approved by the Foodand Drug Administration.PATIENT WAS FASTINGPERFORMED BY: B[employer]7 [facility] [id number] BY: [employer]6370 [facility]123[facility] [id number] Bilirubin Ql (U) Negative Normal Comprehe nsive Internal Medicine; [facility] Work Phone: Comment on above: Test(s) 090367-YYF-D ; 424210-BMU-S; 590729-Oqipbqlgwcqyn; 584795-Asgaaihwvik, Total; 669588-WDN-R (Total); 936138-Iqslt LDL-P; 468961-IUU Size; 859850-DE-UV Scorewas developed and its performance characteristics determinedby [employer]. It has not been cleared or approved by the Foodand Drug Administration.PATIENT WAS FASTINGPERFORMED BY: Lemon Curve[address] [id number] BY: [employer]70 [facility] [id number] Color (U) Yellow Normal [facility]; [facility] Work Phone: Comment on above: Test(s) 706623-SPY-E ; 045772-EXP-Y; 330024-Leykcciqijubv; 816637-Atxzpzuvqyg, Total; 969314-LIN-O (Total); 112134-Ovoho LDL-P; 102100-LJL Size; 866814-YW-EP Scorewas developed and its performance characteristics determinedby [employer]. It has not been cleared or approved by the Foodand Drug Administration.PATIENT WAS FASTINGPERFORMED BY: Lemon Curve[address] [id number] BY: [facility] Otamkf0923 VegaSaint Francis Hospital & Health ServicesNextcar.comHugh Chatham Memorial Hospital [id number] Glucose Ql (U) Negative Normal Comprehens jeff [facility] Medicine; [facility] Work Phone: Comment on above: Test(s) 568227-YML-W ; 028546-KQG-N; 747546-Otbzsexlfkply; 335279-Ksffhwxyrms, Total; 686734-VBK-C (Total); 042955-Jbnfb LDL-P; 004121-PCA Size; 815689-TB-MO Scorewas developed and its performance characteristics determinedby [employer]. It has not been cleared or approved by the Foodand Drug Administration.PATIENT WAS FASTINGPERFORMED BY: Lemon Curve[address] [id number] BY: [facility] Omqust4312 [facility] [id number] Hemoglobin Ql (U) Negative Normal Compreh ensive Internal Medicine; [facility] Work Phone: Comment on above: Test(s) 775826-YOM-Z ; 930751-WZM-W; 499062-Bgvafeajcxzmh; 908984-Mnvbvvqctaj, Total; 704395-NGV-B (Total); 841889-Hogzn LDL-P; 910108-ZKC Size; 653342-NA-QG Scorewas developed and its performance characteristics determinedby [employer]. It has not been cleared or approved by the Foodand Drug Administration.PATIENT WAS FASTINGPERFORMED BY: Alkermes [address] [id number] BY: [employer]6370 [facility] [id number] Ketones Ql (U) Negative Normal Comprehens jeff [facility] Medicine; [facility] Work Phone: Comment on above: Test(s) 054448-WWS-I ; 533715-ZMS-M; 211486-Jqagaigleksak; 215210-Piiuomtaioi, Total; 200283-FFR-I (Total); 281458-Oxquq LDL-P; 922957-ALJ Size; 093374-LG-YK Scorewas developed and its performance characteristics determinedby [employer]. It has not been cleared or approved by the Foodand Drug Administration.PATIENT WAS FASTINGPERFORMED BY: Alkermes [address] [id number] BY: Lilianna Spinal SolutionsHudson County Meadowview HospitalWkwbmm1790 [facility] [id number] Leukocyte esterase Test strip Ql (U) Negative Normal [facility]; [facility] Work Phone: Comment on above: Test(s) 395014-SWZ-Z ; 102123-UNJ-E; 321642-Seztotxemicuq; 330617-Qykblkfiktp, Total; 921567-IPE-U (Total); 036606-Cpcel LDL-P; 905939-OCN Size; 998035-XX-PQ Scorewas developed and its performance characteristics determinedby [employer]. It has not been cleared or approved by the Foodand Drug Administration.PATIENT WAS FASTINGPERFORMED BY: Alkermes [address] [id number] BY: [employer] Tbmrvj2828 [facility] [id number] Microscopic observation LM Nom (Urine sed) MICNIP Normal [facility]; [facility] Work Phone: Comment on above: Microscopic not oniel cated and not performed. Test(s) 508468-HVU-U ; 100267-TQK-B; 532426-Wngaehuokkcci; 737153-Wrqphiwjhxe, Total; 121693-LWP-C (Total); 705786-Rlanf LDL-P; 508930-SCA Size; 648413-IE-HV Scorewas developed and its performance characteristics determinedby [employer]. It has not been cleared or approved by the Foodand Drug Administration.PATIENT WAS FASTINGPERFORMED BY: Alkermes [address] [id number] BY: [employer]6370 [facility] [id number] Nitrite Ql (U) Negative Normal Comprehens jeff Internal Medicine; [facility] Work Phone: Comment on above: Test(s) 783396-AXB-H ; 576231-LWR-L; 341884-Idqtozpsekkti; 272288-Mcheazdlana, Total; 616982-PSP-W (Total); 255777-Innhz LDL-P; 490119-YCP Size; 955408-HQ-WI Scorewas developed and its performance characteristics determinedby [employer]. It has not been cleared or approved by the Foodand Drug Administration.PATIENT WAS FASTINGPERFORMED BY: Alkermes [address] [id number] BY: [employer]6370 [facility] [id number] pH (U) 6.0 [pH] Normal 5.0-7.5 [facility]; [facility] Work Phone: Comment on above: Test(s) 481614-BJO-M ; 295188-QPV-E; 675274-Dyxvlwuuujbfq; 029710-Okupqfugtcd, Total; 134012-OGP-R (Total); 337875-Xanac LDL-P; 041990-ALQ Size; 900651-FG-IS Scorewas developed and its performance characteristics determinedby [employer]. It has not been cleared or approved by the Foodand Drug Administration.PATIENT WAS FASTINGPERFORMED BY: Alkermes [address] [id number] BY: [facility] Nkegut5196 [facility] [id number] Protein Ql (U) Negative Normal Comprehens [facility]; [facility] Work Phone: Comment on above: Test(s) 294062-VJI-X ; 163135-GYP-E; 985859-Paqfvcbshoenh; 681297-Fuxklyjeiqr, Total; 983746-DAL-H (Total); 640328-Ukddp LDL-P; 650986-XEY Size; 422230-VL-JA Scorewas developed and its performance characteristics determinedby [employer]. It has not been cleared or approved by the Foodand Drug Administration.PATIENT WAS FASTINGPERFORMED BY: Alkermes [address] [id number] BY: [facility] Gkctgt8827 [facility] [id number] Specific gravity (U) [Rel density] 1.023 1 Normal 1.005-1.030 [facility]; [facility] Work Phone: Comment on above: Test(s) 113438-TCT-G ; 529729-VWD-B; 244757-Gqvltsqnpeztd; 295774-Kuxkwegofqs, Total; 841624-MHV-B (Total); 795415-Wrncm LDL-P; 656921-RSB Size; 133799-HK-KD Scorewas developed and its performance characteristics determinedby [employer]. It has not been cleared or approved by the Foodand Drug Administration.PATIENT WAS FASTINGPERFORMED BY: Alkermes [address] [id number] BY: [employer]6370 Search123[facility] [id number] Urobilinogen (U) [Mass/Vol] 0.2 mg/dL Normal 0.2-1.0 [facility]; [facility] Work Phone: Comment on above: Test(s) 295931-JSM-C ; 406857-VWI-V; 237766-Vzgrnuacdmsga; 590739-Tmpvzvehasu, Total; 995018-GMQ-V (Total); 384424-Gbpvb LDL-P; 920193-AUF Size; 678233-RW-NX Scorewas developed and its performance characteristics determinedby [employer]. It has not been cleared or approved by the Foodand Drug Administration.PATIENT WAS FASTINGPERFORMED BY: Funky Moves1447 [facility] [id number] BY: [employer]70 Search123[facility] [id number] VITAMIN B-12 (CYANOCOBALAMIN ) (51643)Ordered By: Associate Account Executive on 06-29-2020 Cobalamin (Vitamin B12) [Mass/Vol] 518 pg/mL Normal 232-1245 [facility]; [facility] Work Phone: Comment on above: Test(s) 027804-VIC-M ; 986232-BBA-L; 634068-Ohuyaijndewdi; 082412-Zcovohjheff, Total; 598816-BLS-O (Total); 610009-Ljqjn LDL-P; 686338-WXC Size; 759661-DX-UG Scorewas developed and its performance characteristics determinedby [employer]. It has not been cleared or approved by the Foodand Drug Administration.PATIENT WAS FASTINGPERFORMED BY: Alkermes [address] [id number] BY: [employer]6370 [facility] [id number] Blood Glucose , Office ([phone])Ordered By: Bhavana Spears on 03-10-2019 Glucose Glucometer (BldC) [Moles/Vol] 147 1 Normal [facility] Work Phone: HgA1C , Office ([phone])Ordere d By: Elin Reynolds on 03-10-2019 HbA1c (Bld) [Mass fraction] 6.9 % Normal 4.6 - 7.1 [facility] Work Phone: Blood Glucose , Office ([phone])Ordered By: Rebecca Pham on 10-25-2018 Glucose Glucometer (BldC) [Moles/Vol] 148 1 Normal [facility] Work Phone: HgA1C , Office ([phone])Ordere d By: Rebecca Pham on 10-25-2018 HbA1c (Bld) [Mass fraction] 6.2 % Normal 4.6 - 7.1 [facility] Work Phone: NMR Profile (69258)Ordered B y: Associate Account Executive on 10-12-2018 Cholesterol [Mass/Vol] 179 mg/dL Normal 100-199 Co mprehensive Internal Medicine Work Phone: Comment on above: PATIENT WAS FASTINGP ERFORMED BY: [employer]image [facility] [id number]; ov 9/16 Lipoprotein.alpha [Moles/Vol] 29.6 umol/L Abnormal [facility] Work Phone: Comment on above: PATIENT WAS FASTINGP ERFORMED BY: [facility]image [facility] HospitalMibuzz.tvEssentia Health [id number]; ov 9/16 Lipoprotein.beta.subpa rticle [Entitic length] 20.3 nm Abnormal [facility] Work Phone: Comment on above: INTERPRETATIVE INFORMATION PARTICLE CONCENTRATION AND SIZE <--Lower CVD Risk Higher CVD Risk--> LDL AND HDL PARTICLES Percentile in Reference Population HDL-P (total) High 75th 50th 25th Low >34.9 34.9 30.5 26.7 <26.7 . Small LDL-P Low 25th 50th 75th High <117 117 527 839 >839 . LDL Size <-Large (Pattern A)-> <-Small (Pattern B)-> 23.0 20.6 20.5 19.0 Small LDL-P and LDL Size are associated with CVD risk, but not afterLDL-P is taken into account. .These assays were developed and their performance characteristicsdetermined by [employer]. These assays have not been cleared by [place] Food and Drug Administration. The clinical utility of theselaboratory values have not been fully established. PATIENT WAS FASTINGP ERFORMED BY: [employer]7 [facility] [id number]; ov 11/01 Lipoprotein.beta.subpa rticle [Moles/Vol] 1645 nmol/L Abnormal [facility] Work Phone: Comment on above: Low < 1000 Moderate 1000 - 1299 Borderline-High 1300 - 1599 High 1600 - 2000 Very High > 2000 PATIENT WAS FASTINGP ERFORMED BY: [employer] LabCC videorp Fxqjdmbtiu4907 [facility] [id number]; ov 11/01 Lipoprotein.beta.subpa rticle.small [Moles/Vol] 1080 nmol/L Abnormal [facility] Work Phone: Comment on above: PATIENT WAS FASTINGP ERFORMED BY: BN [facility] Blvrroekzw2582 [facility] [id number]; ov 11/01 Triglyceride [Mass/Vol] 167 mg/dL Abnormal 0-149 [facility] Work Phone: Comment on above: PATIENT WAS FASTINGP ERFORMED BY: BN [facility] Csqzqzsuyo4557 [facility] [id number]; ov 11/01 NMR Profile (66522) 39 mg/dL Abnormal [facility] Internal Medicine Work Phone: Comment on above: PATIENT WAS FASTINGP ERFORMED BY: [employer] LabSOLOMO365Ckfcztizqx9914 [facility] [id number]; ov 11/01 NMR Profile (73673) 107 mg/dL Abnormal 0-99 Compr ensive Internal Medicine Work Phone: Comment on above: . Optimal < 100 Abov e optimal 100 - 129 Borderline 130 - 159 High 160 - 189 Very high > 189 .LDL-C is inaccurate if patient is non-fasting. PATIENT WAS FASTINGP ERFORMED BY: Lemon Curve[address] [id number]; ov 11/01 NMR Profile (00418) 179 mg/dL Normal 100-199 Compr ehensive Internal Medicine; [facility] Work Phone: NMR Profile (43292) 167 mg/dL Abnormal 0-149 Compr ehensive Internal Medicine; [facility] Work Phone: Blood Glucose , Office ([phone] 2)Ordered By: Rebecca Pham on 06-21-2018 Glucose Glucometer molar conc (BldC) 132 1 Normal [facility] Work Phone: HgA1C , Office (98259)Ordere d By: Rebecca Pham on 06-21-2018 Hemoglobin A1c/Hemoglobin.total mass fraction (Bld) 6.0 % Normal 4.6 - 7.1 Comprehensiv e Internal Medicine Work Phone: CBC W/AUTO DIFF WBC (08652)O rdered By: Associate Account Executive on 06-10-2018 Basophils #/vol (Bld) 0.0 {x10E3/uL} Normal 0.0-0.2 [facility] Work Phone: Comment on above: PATIENT WAS FASTINGP ERFORMED BY: Lemon Curve[address] [id number] BY: [facility] [id number] Basophils (Bld) [#/Vol] 0.0 10*3/uL Normal 0.0-0.2 [facility]; [facility] Work Phone: Comment on above: PATIENT WAS FASTINGP ERFORMED BY: Lemon Curve[address] [id number] BY: [employer] Earth Solutionsblin [place] [id number] Basophils/100 WBC (Bld) 1 % Normal [facility] Work Phone: Comment on above: PATIENT WAS FASTINGP ERFORMED BY: [address] [id number] BY: LabCo Jfqyuv0012 Vega RoadDublin [place] [id number] Eosinophils #/vol (Bld) 0.3 {x10E3/uL} Normal 0.0-0.4 [facility] Work Phone: Comment on above: PATIENT WAS FASTINGP ERFORMED BY: [address] [id number] BY: [facility]6[address] RoadDublin [place] [id number] Eosinophils (Bld) [#/Vol] 0.3 10*3/uL Normal 0.0-0.4 [facility]; [facility] Work Phone: Comment on above: PATIENT WAS FASTINGP ERFORMED BY: [address] [id number] BY: [facility]6[address] RoadDublin [place] [id number] Eosinophils/100 WBC (Bld) 4 % Normal [facility] Work Phone: Comment on above: PATIENT WAS FASTINGP ERFORMED BY: [address] [id number] BY: LabHutzel Women'S Hospital6370 [address] RoadDublin [place] [id number] Erythrocyte distribution width Ratio (RBC) 14.6 % Normal 12.3-15.4 [facility] Work Phone: Comment on above: PATIENT WAS FASTINGP ERFORMED BY: [address] [id number] BY: [facility]Co Bekznw3296 [address] RoadDublin [place] [id number] Hematocrit Volume Fraction (Bld) 41.2 % Normal 34.0-46.6 [facility] Work Phone: Comment on above: PATIENT WAS FASTINGP ERFORMED BY: [address] [id number] BY: KEVEN LabCoHudson County Meadowview HospitalKzluca6743 [facility] [id number] Hemoglobin mass conc (Bld) 13.5 g/dL Normal 11.1-15.9 [facility] Work Phone: Comment on above: PATIENT WAS FASTINGP ERFORMED BY: [address] [id number] BY: KEVEN [facility]Harry [facility] Sypili5460 [facility] [id number] Immature granulocytes #/vol (Bld) 0.0 {x10E3/uL} Normal 0.0-0.1 [facility] Work Phone: Comment on above: PATIENT WAS FASTINGP ERFORMED BY: [address] [id number] BY: KEVEN LabHutzel Women'S Hospital6370 [facility] [id number] Immature granulocytes (Bld) [#/Vol] 0.0 10*3/uL Normal 0.0-0.1 [facility]; [facility] Work Phone: Comment on above: PATIENT WAS FASTINGP ERFORMED BY: [address] [id number] BY: LabChristopher [place] 9612170 [facility] [id number] Immature granulocytes/100 WBC (Bld) 0 % Normal [facility] Work Phone: Comment on above: PATIENT WAS FASTINGP ERFORMED BY: [address] [id number] BY: LabCoNicholas V[place] 9521570 [facility] [id number] Lymphocytes #/vol (Bld) 2.8 {x10E3/uL} Normal 0.7-3.1 [facility] Work Phone: Comment on above: PATIENT WAS FASTINGP ERFORMED BY: Lab[address] [id number] BY: [facility] Wmuoyg7342 [address]ega RoadDublin [place] [id number] Lymphocytes (Bld) [#/Vol] 2.8 10*3/uL Normal 0.7-3.1 [facility]; [facility] Work Phone: Comment on above: PATIENT WAS FASTINGP ERFORMED BY: Lab[address] [id number] BY: KEVEN LabCo Pxsytm9690 [address] [facility]in [place] [id number] Lymphocytes/100 WBC (Bld) 33 % Normal [facility] Work Phone: Comment on above: PATIENT WAS FASTINGP ERFORMED BY: Lab[address] [id number] BY: [facility] Gztflb4415 [address] [facility] [id number] MCH Entitic mass (RBC) 28.9 pg Normal 26.6-33.0 [facility] Internal Medicine Work Phone: Comment on above: PATIENT WAS FASTINGP ERFORMED BY: Lab[address] [id number] BY: [facility]Co Wywsdk0604 [address] [facility]in [place] [id number] MCHC mass conc (RBC) 32.8 g/dL Normal 31.5-35.7 [facility] Internal Medicine Work Phone: Comment on above: PATIENT WAS FASTINGP ERFORMED BY: Lab[address] [id number] BY: [facility] Eorwzx0192 [address] [facility] Hospitalblin [place] [id number] MCV Entitic volume (RBC) 88 fL Normal 79-97 [facility] Internal Medicine Work Phone: Comment on above: PATIENT WAS FASTINGP ERFORMED BY: [place] 346307 [facility] [id number] BY: [facility] Zesden6379 [address] RoadDublin [place] [id number] Monocytes #/vol (Bld) 0.5 {x10E3/uL} Normal 0.1-0.9 [facility] Work Phone: Comment on above: PATIENT WAS FASTINGP ERFORMED BY: Lab[address] [id number] BY: [facility] Hzguoa4237 [address] RoadDublin [place] [id number] Monocytes (Bld) [#/Vol] 0.5 10*3/uL Normal 0.1-0.9 [facility]; [facility] Work Phone: Comment on above: PATIENT WAS FASTINGP ERFORMED BY: [address] [id number] BY: LabCoPresbyterian Kaseman HospitalMnbtjz3032 Vega RoadDublin [place] [id number] Monocytes/100 WBC (Bld) 6 % Normal [facility] Work Phone: Comment on above: PATIENT WAS FASTINGP ERFORMED BY: [address] [id number] BY: [facility] Dygsfj1468 V[address] RoadDublin [place] [id number] Neutrophils #/vol (Bld) 4.7 {x10E3/uL} Normal 1.4-7.0 [facility] Work Phone: Comment on above: PATIENT WAS FASTINGP ERFORMED BY: [address] [id number] BY: [facility] Jffhij0811 [address] RoadDublin [place] [id number] Neutrophils (Bld) [#/Vol] 4.7 10*3/uL Normal 1.4-7.0 [facility]; [facility] Work Phone: Comment on above: PATIENT WAS FASTINGP ERFORMED BY: [place] [address] [facility] [id number] BY: KEVEN [facility] Immzhx9226 [address] [facility]in [place] [id number] Neutrophils/100 WBC (Bld) 56 % Normal [facility] Work Phone: Comment on above: PATIENT WAS FASTINGP ERFORMED BY: [facility] [address] [id number] BY: KEVEN [facility] Ygszzv9508 Vega RoadUnc Hospitals Hillsborough Campusin [place] [id number] Platelets #/vol (Bld) 315 {x10E3/uL} Normal 150-379 [facility] Work Phone: Comment on above: PATIENT WAS FASTINGP ERFORMED BY: [place] LabCo[address] [id number] BY: KEVEN [facility] Jpqcpr3535 V[address] RoadFormerly [facility] [id number] Platelets (Bld) [#/Vol] 315 10*3/uL Normal 150-379 [facility]; [facility] Work Phone: Comment on above: PATIENT WAS FASTINGP ERFORMED BY: Lab[address] [id number] BY: KEVEN [facility] Rnymug5739 [address] [facility] [id number] RBC #/vol (Bld) 4.67 {x10E6/uL} Normal 3.77-5.28 [facility] Internal Medicine Work Phone: Comment on above: PATIENT WAS FASTINGP ERFORMED BY: [facility] [address] [id number] BY: [facility] Lrimte0457 [address] [facility] [id number] RBC (Bld) [#/Vol] 4.67 10*6/uL Normal 3.77-5.28 Compr ensive Internal Medicine; [facility] Work Phone: Comment on above: PATIENT WAS FASTINGP ERFORMED BY: LabCo[address] [id number] BY: LabHutzel Women'S Hospital6370 [facility] [id number] WBC #/vol (Bld) 8.3 {x10E3/uL} Normal 3.4-10.8 [facility]erens[facility] Work Phone: Comment on above: PATIENT WAS FASTINGP ERFORMED BY: Lab[address] [id number] BY: LabHutzel Women'S Hospital6370 [facility] [id number] WBC (Bld) [#/Vol] 8.3 10*3/uL Normal 3.4-10.8 [facility] Internal Medicine; [facility] Work Phone: Comment on above: PATIENT WAS FASTINGP ERFORMED BY: [employer] [id number] BY: LabCC videoNicholas Ville 9521570 [facility] [id number] LIPOPROTEIN, BLD, BY NMR ([id number] 020)Ordered By: Associate Account Executive on 06-10-2018 Cholesterol mass conc 174 mg/dL Normal 100-199 [facility] Centerensive [facility] Work Phone: Comment on above: PATIENT WAS FASTINGP ERFORMED BY: [employer] [id number] BY: LabHutzel Women'S Hospital6370 [facility] [id number] Lipoprotein.alpha molar conc 30.8 umol/L Normal [facility] Work Phone: Comment on above: PATIENT WAS FASTINGP ERFORMED BY: Nolio[address] [id number] BY: LabHutzel Women'S Hospital6370 [facility] [id number] Lipoprotein.beta.subpa rticle Entitic length 20.5 nm Abnormal Comprehens jeff Internal Medicine Work Phone: Comment on above: INTERPRETATIVE INFORMATION PARTICLE CONCENTRATION AND SIZE <--Lower CVD Risk Higher CVD Risk--> LDL AND HDL PARTICLES Percentile in Reference Population HDL-P (total) High 75th 50th 25th Low >34.9 34.9 30.5 26.7 <26.7 . Small LDL-P Low 25th 50th 75th High <117 117 527 839 >839 . LDL Size <-Large (Pattern A)-> <-Small (Pattern B)-> 23.0 20.6 20.5 19.0 Small LDL-P and LDL Size are associated with CVD risk, but not afterLDL-P is taken into account. .These assays were developed and their performance characteristicsdetermined by [employer]. These assays have not been cleared by [employer] Food and Drug Administration. The clinical utility of theselaboratory values have not been fully established. PATIENT WAS FASTINGP ERFORMED BY: Subimage [facility] [id number] BY: Tigerlily [facility] [id number] Lipoprotein.beta.subpa rticle molar conc 1268 nmol/L Abnormal [facility] Work Phone: Comment on above: Low < 1000 Moderate 1000 - 1299 Borderline-High 1300 - 1599 High 1600 - 2000 Very High > 2000 PATIENT WAS FASTINGP ERFORMED BY: Funky Moves1447 [facility] [id number] BY: Selleration [facility] [id number] Lipoprotein.beta.subpa rticle.small molar conc 778 nmol/L Abnormal [facility] Work Phone: Comment on above: PATIENT WAS FASTINGP ERFORMED BY: BN Lab[address] [id number] BY: [facility]6370 [facility] [id number] Triglyceride mass conc 177 mg/dL Abnormal 0-149 Co [facility] Internal Medicine Work Phone: Comment on above: PATIENT WAS FASTINGP ERFORMED BY: Nolio[address] [id number] BY: LabChristopher [place] 9612170 [facility] [id number] LIPOPROTEIN, BLD, BY NMR (40147) 96 mg/dL Normal 0-99 [facility] Work Phone: Comment on above: . Optimal < 100 Abov e optimal 100 - 129 Borderline 130 - 159 High 160 - 189 Very high > 189 .LDL-C is inaccurate if patient is non-fasting. PATIENT WAS FASTINGP ERFORMED BY: [employer] [id number] BY: [facility]6370 [facility] [id number] LIPOPROTEIN, BLD, BY NMR (22760) 43 mg/dL Normal [facility] Work Phone: Comment on above: PATIENT WAS FASTINGP ERFORMED BY: [employer] [id number] BY: NolioHutzel Women'S Hospital6370 [facility] [id number] LIPOPROTEIN, BLD, BY NMR (87719) 177 mg/dL Abnormal 0-149 [facility]; [facility] Work Phone: LIPOPROTEIN, BLD, BY NMR (61549) 174 mg/dL Normal 100-199 [facility]; [facility] Work Phone: METABOLIC PANEL, COMPREHENSI VE (24338)Ordered By: Associate Account Executive on 06-10-2018 Albumin mass conc 3.9 g/dL Normal 3.6-4.8 Compreh ensive Internal Medicine Work Phone: Comment on above: PATIENT WAS FASTINGP ERFORMED BY: LabCo[address] [id number] BY: Lab[facility] Numlyb1323 [facility] Hamiltonin [place] [id number] Albumin/Globulin mass ratio 1.3 {ratio} Normal 1.2-2.2 [facility] Work Phone: Comment on above: PATIENT WAS FASTINGP ERFORMED BY: Lab[address] [id number] BY: Lab[facility] Npjsli7862 [address] RoadUnc Hospitals Hillsborough Campusin [place] [id number] ALP [Catalytic activity/Vol] 115 U/L Normal 39-117 [facility]; [facility] Work Phone: Comment on above: PATIENT WAS FASTINGP ERFORMED BY: Lab[address] [id number] BY: [facility] Ovtbqc5876 [address] RoadFormerly [facility] [id number] ALP enzyme act/vol 115 [iU]/L Normal 39-117 [facility] Internal Medicine Work Phone: Comment on above: PATIENT WAS FASTINGP ERFORMED BY: [address] [id number] BY: LabCoHudson County Meadowview HospitalDweymo6567 [address] RoadFormerly [facility] [id number] ALT [Catalytic activity/Vol] 20 U/L Normal 0-32 [facility]; [facility] Internal Medicine Work Phone: Comment on above: PATIENT WAS FASTINGP ERFORMED BY: Lab[address] [id number] BY: [facility] Eezzlf1565 [address] RoadUnc Hospitals Hillsborough Campusin [place] [id number] ALT enzyme act/vol 20 [iU]/L Normal 0-32 [facility] Internal Medicine Work Phone: Comment on above: PATIENT WAS FASTINGP ERFORMED BY: [address] [id number] BY: LabChristopher [place] 9612170 [address] RoadDublin [place] [id number] AST [Catalytic activity/Vol] 24 U/L Normal 0-40 [facility]; [facility] Work Phone: Comment on above: PATIENT WAS FASTINGP ERFORMED BY: Lab[address] [id number] BY: [facility] Bnfsmw5863 [address] RoadDublin [place] [id number] AST enzyme act/vol 24 [iU]/L Normal 0-40 Compre hensive Internal Medicine Work Phone: Comment on above: PATIENT WAS FASTINGP ERFORMED BY: [address] [id number] BY: LabChristopher [place] 9612170 [address] RoadDublin [place] [id number] Bilirubin mass conc 0.3 mg/dL Normal 0.0-1.2 Compr ehensive Internal Medicine Work Phone: Comment on above: PATIENT WAS FASTINGP ERFORMED BY: [address] [id number] BY: [facility] Yedmiy0378 V[address] RoadDublin [place] [id number] Calcium mass conc 9.7 mg/dL Normal 8.7-10.3 Compreh ensive Internal Medicine Work Phone: Comment on above: PATIENT WAS FASTINGP ERFORMED BY: [address] [id number] BY: LabHutzel Women'S Hospital6[address] RoadDublin [place] [id number] Chloride molar conc 101 mmol/L Normal 96-106 Compr ehensive Internal Medicine Work Phone: Comment on above: PATIENT WAS FASTINGP ERFORMED BY: Lab[address] [id number] BY: Lab[facility] Lvxmpg3076 [address] RoadDublin [place] [id number] CO2 molar conc 25 mmol/L Normal 20-29 Comprehens jeff Internal Medicine Work Phone: Comment on above: PATIENT WAS FASTINGP ERFORMED BY: [facility] [address] [id number] BY: KEVEN [facility] Ddqivq7727 [address] [facility] [id number] Creatinine mass conc 0.84 mg/dL Normal 0.57-1.00 Comp rehensive Internal Medicine Work Phone: Comment on above: PATIENT WAS FASTINGP ERFORMED BY: BN [facility] [address] [id number] BY: CB [facility] Yofdiv5138 [address] [facility] [id number] GFR/1.73 sq M predicted among blacks CKD-EPI vol rate/area (S/P/Bld) 87 mL/min/1.73 Normal [facility] Work Phone: Comment on above: PATIENT WAS FASTINGP ERFORMED BY: [facility] [address] [id number] BY: KEVEN [facility] Nohswz3395 [address] [facility] [id number] GFR/1.73 sq M predicted among non-blacks CKD-EPI vol rate/area (S/P/Bld) 75 mL/min/1.73 Normal Comprehensiv e Internal Medicine Work Phone: Comment on above: PATIENT WAS FASTINGP ERFORMED BY: [facility] [address] [id number] BY: CB [facility] Prvses7901 [address] [facility] [id number] Globulin mass conc (S) 3.1 g/dL Normal 1.5-4.5 Co mprehensive Internal Medicine Work Phone: Comment on above: PATIENT WAS FASTINGP ERFORMED BY: BN [facility] [address] [id number] BY: CB [facility] Xiiaqh6351 [address] [facility] [id number] Glucose mass conc 116 mg/dL Abnormal 65-99 Compreh ensive Internal Medicine Work Phone: Comment on above: PATIENT WAS FASTINGP ERFORMED BY: [facility] [address] [id number] BY: KEVEN [facility] Ozpfuy8434 [address] RoadDublin [place] [id number] Potassium molar conc 5.0 mmol/L Normal 3.5-5.2 Comp rehensive Internal Medicine Work Phone: Comment on above: PATIENT WAS FASTINGP ERFORMED BY: [facility] [address] [id number] BY: KEVEN [facility] Wphxne9468 [address] RoadDublin [place] [id number] Protein mass conc 7.0 g/dL Normal 6.0-8.5 Compreh ensive Internal Medicine Work Phone: Comment on above: PATIENT WAS FASTINGP ERFORMED BY: LabCo[address] [id number] BY: KEVEN [facility] Dhelad5934 [address] Roadblin [place] [id number] Sodium molar conc 141 mmol/L Normal 134-144 Compreh ensive Internal Medicine Work Phone: Comment on above: PATIENT WAS FASTINGP ERFORMED BY: [facility] [address] [id number] BY: KEVEN [facility] Cymwdd5256 [address] RoadDublin [place] [id number] Urea nitrogen mass conc 16 mg/dL Normal 8-27 [facility] Work Phone: Comment on above: PATIENT WAS FASTINGP ERFORMED BY: LabCo[address] [id number] BY: KEVEN [facility] Ljaytg5836 [address] RoadDublin [place] [id number] Urea nitrogen/Creatinine mass ratio 19 mg/mg Normal 12-28 [facility] Work Phone: Comment on above: PATIENT WAS FASTINGP ERFORMED BY: LabCo[address] [id number] BY: NolioCo Nsoumu2231 [address] [facility]in [place] [id number] MICROALBUMINOrdered By: Pb em Street Railway Line Installer on 06-10-2018 Albumin DL <= 20 mg/L (U) [Mass/Vol] mg/dL Normal [facility]; [facility] Work Phone: Comment on above: PATIENT WAS FASTINGP ERFORMED BY: [employer] [id number] BY: [facility] Xeubdj5753 [address] [facility] [id number] Albumin DL <= 20 mg/L mass conc (U) mg/dL Normal [facility] Work Phone: Comment on above: PATIENT WAS FASTINGP ERFORMED BY: [employer] [id number] BY: [facility] video Brxmex4907 [address] [facility] [id number] Albumin/Creatinine mass ratio (U) <3.7 Normal 0.0-30.0 [facility] Work Phone: Comment on above: Normal: 0.0 - 30.0 A lbuminuria: 31.0 - 300.0 Clinical albuminuria: >300.0 PATIENT WAS FASTINGP ERFORMED BY: [employer] [id number] BY: [facility] video Ujddrn4442 [address] [facility] [id number] Creatinine mass conc (U) 80.1 mg/dL Normal [facility] Work Phone: Comment on above: PATIENT WAS FASTINGP ERFORMED BY: [employer] [id number] BY: [facility] video Ynjdnn3877 [facility] [id number] TSH ([id number])Ordered By: Cong m Street [employer] Installer on 06-10-2018 Thyrotropin Qn 2.150 {uIU/mL} Normal 0.450-4.500 Compr inscription [facility] Internal Medicine Work Phone: Comment on above: PATIENT WAS FASTINGP ERFORMED BY: LabCo[address] [id number] BY: KEVEN [facility] Hrezyc2387 [address] RoadDublin [place] [id number] URINALYSIS, W/ MICRO ([id number]) Ordered By: Associate Account Executive on 06-10-2018 Appearance Nom (U) Clear Normal Compre hensive Internal Medicine Work Phone: Comment on above: PATIENT WAS FASTINGP ERFORMED BY: [facility] [address] [id number] BY: KEVEN [facility] Yxglfr7097 [address] RoadDublin [place] [id number] Bilirubin Ql (U) Negative Normal Comprehe nsive Internal Medicine Work Phone: Comment on above: PATIENT WAS FASTINGP ERFORMED BY: LabCo[address] [id number] BY: KEVEN [facility] Powltw7744 [address] RoadDublin [place] [id number] Bilirubin Ql (U) Negative Normal Comprehe nsive Internal Medicine; [facility] Work Phone: Comment on above: PATIENT WAS FASTINGP ERFORMED BY: LabCo[address] [id number] BY: KEVEN [facility] Kfvoze2972 [address] RoadDublin [place] [id number] Color Nom (U) Yellow Normal Comprehensi ve Internal Medicine Work Phone: Comment on above: PATIENT WAS FASTINGP ERFORMED BY: [facility] [address] [id number] BY: KEVEN [facility] Ytytfw0251 [address] RoadDublin [place] [id number] Glucose Ql (U) Negative Normal Comprehens jeff Internal Medicine Work Phone: Comment on above: PATIENT WAS FASTINGP ERFORMED BY: [facility] [address] [id number] BY: KEVEN [facility] Gceunu4998 [address] RoadDublin [place] [id number] Glucose Ql (U) Negative Normal Comprehens jeff Internal Medicine; [facility] Work Phone: Comment on above: PATIENT WAS FASTINGP ERFORMED BY: [facility] [address] [id number] BY: KEVEN [facility] Hqqzas5802 [address] RoadDublin [place] [id number] Hemoglobin Ql (U) Negative Normal Compreh ensive [facility] Medicine Work Phone: Comment on above: PATIENT WAS FASTINGP ERFORMED BY: [facility] [address] [id number] BY: KEVEN [facility] Yfnacx4709 Vega RoadDublin [place] [id number] Hemoglobin Ql (U) Negative Normal Compreh ensive Internal Medicine; [facility] Work Phone: Comment on above: PATIENT WAS FASTINGP ERFORMED BY: [facility] [id number] BY: KEVEN [facility] Vewluy5468 Vega RoadDublin [place] [id number] Ketones Ql (U) Negative Normal Comprehens jeff Internal Medicine Work Phone: Comment on above: PATIENT WAS FASTINGP ERFORMED BY: [address] [id number] BY: KEVEN [facility] Xxbgts0033 Vega RoadDublin [place] [id number] Ketones Ql (U) Negative Normal Comprehens jeff Internal Medicine; [facility] Work Phone: Comment on above: PATIENT WAS FASTINGP ERFORMED BY: [address] [id number] BY: KEVEN [facility] Rkiuud4988 Vega RoadDublin [place] [id number] Leukocyte esterase Test strip Ql (U) Negative Normal [facility] Work Phone: Comment on above: PATIENT WAS FASTINGP ERFORMED BY: [facility] [id number] BY: KEVEN [facility] Kpxkwe6026 Vega RoadDublin [place] [id number] Leukocyte esterase Test strip Ql (U) Negative Normal [facility]; [facility] Work Phone: Comment on above: PATIENT WAS FASTINGP ERFORMED BY: [address] [id number] BY: [facility] Xsercu3057 Vega RoadDublin [place] [id number] Microscopic observation LM Nom (Urine sed) See below: Normal [facility] Work Phone: Comment on above: Microscopic was oniel cated and was performed. PATIENT WAS FASTINGP ERFORMED BY: [address] [id number] BY: [facility] Blwmkx8155 Vega RoadDublin [place] [id number] Microscopic observation LM Nom (Urine sed) MICRON Normal [facility] Work Phone: Comment on above: Microscopic follows if indicated. PATIENT WAS FASTINGP ERFORMED BY: [address] [id number] BY: [facility] Mmvwdc5248 V[address] RoadDublin [place] [id number] Nitrite Ql (U) Negative Normal Comprehens jeff Internal Medicine Work Phone: Comment on above: PATIENT WAS FASTINGP ERFORMED BY: [address] [id number] BY: [facility] Fcojya9767 Vega RoadDublin [place] [id number] Nitrite Ql (U) Negative Normal Comprehens jeff Internal Medicine; [facility] Work Phone: Comment on above: PATIENT WAS FASTINGP ERFORMED BY: [address] [id number] BY: [facility] Gmfezb6454 Vega RoadDublin [place] [id number] pH (U) 6.0 [pH] Normal 5.0-7.5 [facility] Work Phone: Comment on above: PATIENT WAS FASTINGP ERFORMED BY: [address] [id number] BY: KEVEN [facility] Uwybkg5726 Vge[address] RoadDublin [place] [id number] Protein Ql (U) Negative Normal Comprehens jeff Internal Medicine Work Phone: Comment on above: PATIENT WAS FASTINGP ERFORMED BY: [facility] [id number] BY: KEVEN [facility] Nwzrbu2670 [address] RoadDublin [place] [id number] Protein Ql (U) Negative Normal Comprehens jeff Internal Medicine; [facility] Work Phone: Comment on above: PATIENT WAS FASTINGP ERFORMED BY: [address] [id number] BY: [facility] Yjbgpu0540 Vega RoadDublin [place] [id number] Specific gravity Relative Density (U) 1.017 1 Normal 1.005-1.030 Comprehensi ve Internal Medicine Work Phone: Comment on above: PATIENT WAS FASTINGP ERFORMED BY: [address] [id number] BY: [facility] Jlvcsm7971 V[address] RoadDublin [place] [id number] Urobilinogen (U) [Mass/Vol] 0.2 mg/dL Normal 0.2-1.0 [facility]; [facility] Work Phone: Comment on above: PATIENT WAS FASTINGP ERFORMED BY: [address] [id number] BY: [facility] Rieqzi1890 Vega RoadDublin [place] [id number] Urobilinogen Test strip mass conc (U) 0.2 mg/dL Normal 0.2-1.0 Comprehensiv e Internal Medicine Work Phone: Comment on above: PATIENT WAS FASTINGP ERFORMED BY: [facility]1447 [facility] [id number] BY: LabCoHudson County Meadowview HospitalRtkzce7541 [facility] [id number] HgA1C , Office ([id number])Ordere d By: Monique Boyer on 12-14-2017 Hemoglobin A1c/Hemoglobin.total mass fraction (Bld) 5.9 % Normal 4.6 - 7.1 Comprehensiv e Internal Medicine Work Phone: SHARON (ANTINUCLEAR ANTIBODY) ( [id number])on 12-07-2017 Nuclear Ab Ql (S) Negative Normal Compreh ensive Internal Medicine Work Phone: Comment on above: PATIENT NOT FASTINGP ERFORMED BY: [facility] Xtnvxw6824 [facility] [id number] SHARON (ANTINUCLEAR ANTIBODY) ( [id number])Ordered By: Associate Account Executive on 12-07-2017 Nuclear Ab Ql (S) Negative Normal Compreh ensive Internal Medicine; [facility] Work Phone: Comment on above: PATIENT NOT FASTINGP ERFORMED BY: LabCoHudson County Meadowview HospitalEapomw0508 [facility] [id number] C-REACT PROT HIGH SENS(hsCRP ) (06506)on 12-07-2017 CRP High sensitivity method mass conc 14.26 mg/L Abnormal 0.00-3.00 [facility] Work Phone: Comment on above: Relative Risk for Fu ture Cardiovascular Event Low <1.00 Average 1.00 - 3.00 High >3.00 PATIENT NOT FASTINGP ERFORMED BY: [facility] Fztfma17[address] [facility]in [place] [id number] CBC W/AUTO DIFF WBC (22904)o n 12-07-2017 Basophils #/vol (Bld) 0.0 {x10E3/uL} Normal 0.0-0.2 [facility] Work Phone: Comment on above: PATIENT WAS FASTINGP ERFORMED BY: [facility] Kyowsj7370 [address] [facility]in [place] [id number] Basophils Auto #/vol (Bld) 0.0 {x10E3/uL} Normal 0.0-0.2 [facility] Work Phone: Basophils/100 WBC (Bld) 0 % Normal [facility] Work Phone: Comment on above: PATIENT WAS FASTINGP ERFORMED BY: KEVEN NolioAndreia Hjanle6316 [facility] [id number] Basophils/100 WBC Auto (Bld) 0 % Normal [facility] Work Phone: Eosinophils #/vol (Bld) 0.3 {x10E3/uL} Normal 0.0-0.4 [facility] Work Phone: Comment on above: PATIENT WAS FASTINGP ERFORMED BY: KEVEN Aesica PharmaceuticalsNicholas [place] 9521570 [facility] [id number] Eosinophils Auto #/vol (Bld) 0.3 {x10E3/uL} Normal 0.0-0.4 [facility] Work Phone: Eosinophils/100 WBC (Bld) 3 % Normal [facility] Work Phone: Comment on above: PATIENT WAS FASTINGP ERFORMED BY: KEVEN [employer]esica PharmaceuticalsNicholas [place] 9521570 [facility] [id number] Eosinophils/100 WBC Auto (Bld) 3 % Normal [facility] Work Phone: Erythrocyte distribution width Auto Ratio (RBC) 15.4 % Normal 12.3-15.4 [facility] Work Phone: Erythrocyte distribution width Ratio (RBC) 15.4 % Normal 12.3-15.4 [facility] Work Phone: Comment on above: PATIENT WAS FASTINGP ERFORMED BY: [place] 9350070 [facility] [id number] Hematocrit Auto Volume Fraction (Bld) 39.6 % Normal 34.0-46.6 [facility] Work Phone: Hematocrit Volume Fraction (Bld) 39.6 % Normal 34.0-46.6 [facility] Work Phone: Comment on above: PATIENT WAS FASTINGP ERFORMED BY: [facility]6370 [facility] [id number] Hemoglobin mass conc (Bld) 13.1 g/dL Normal 11.1-15.9 [facility] Work Phone: Comment on above: PATIENT WAS FASTINGP ERFORMED BY: [facility]6370 [facility] [id number] Immature granulocytes #/vol (Bld) 0.0 {x10E3/uL} Normal 0.0-0.1 [facility] Work Phone: Comment on above: PATIENT WAS FASTINGP ERFORMED BY: [place] 9350070 [facility] [id number] Immature granulocytes/100 WBC (Bld) 0 % Normal [facility] Work Phone: Comment on above: PATIENT WAS FASTINGP ERFORMED BY: [place] 9350070 [facility] [id number] Lymphocytes #/vol (Bld) 2.3 {x10E3/uL} Normal 0.7-3.1 [facility] Work Phone: Comment on above: PATIENT WAS FASTINGP ERFORMED BY: [place] 9350070 [facility] [id number] Lymphocytes Auto #/vol (Bld) 2.3 {x10E3/uL} Normal 0.7-3.1 [facility] Work Phone: Lymphocytes/100 WBC (Bld) 30 % Normal [facility] Work Phone: Comment on above: PATIENT WAS FASTINGP ERFORMED BY: [place] 9350070 [facility] [id number] Lymphocytes/100 WBC Auto (Bld) 30 % Normal [facility] Work Phone: MCH Auto Entitic mass (RBC) 27.7 pg Normal 26.6-33.0 [facility] Work Phone: MCH Entitic mass (RBC) 27.7 pg Normal 26.6-33.0 [facility] Internal Medicine Work Phone: Comment on above: PATIENT WAS FASTINGP ERFORMED BY: KEVEN [facility] Jyohzh1643 [facility] [id number] MCHC Auto mass conc (RBC) 33.1 g/dL Normal 31.5-35.7 [facility] Work Phone: MCHC mass conc (RBC) 33.1 g/dL Normal 31.5-35.7 Comp rehensive Internal Medicine Work Phone: Comment on above: PATIENT WAS FASTINGP ERFORMED BY: KEVEN [facility] Iqwyay9594 [facility] [id number] MCV Auto Entitic volume (RBC) 84 fL Normal 79-97 [facility] Work Phone: MCV Entitic volume (RBC) 84 fL Normal 79-97 [facility] Work Phone: Comment on above: PATIENT WAS FASTINGP ERFORMED BY: KEVEN [facility] Tlzoft7102 [facility] [id number] Monocytes #/vol (Bld) 0.3 {x10E3/uL} Normal 0.1-0.9 [facility] Work Phone: Comment on above: PATIENT WAS FASTINGP ERFORMED BY: KEVEN [facility] Fbpils9374 [facility] [id number] Monocytes Auto #/vol (Bld) 0.3 {x10E3/uL} Normal 0.1-0.9 [facility] Work Phone: Monocytes/100 WBC (Bld) 4 % Normal [facility] Work Phone: Comment on above: PATIENT WAS FASTINGP ERFORMED BY: KEVEN [facility]6370 [facility] [id number] Monocytes/100 WBC Auto (Bld) 4 % Normal [facility] Work Phone: Neutrophils #/vol (Bld) 4.8 {x10E3/uL} Normal 1.4-7.0 [facility] Work Phone: Comment on above: PATIENT WAS FASTINGP ERFORMED BY: KEVEN [facility] Koaqby9767 [facility] [id number] Neutrophils Auto #/vol (Bld) 4.8 {x10E3/uL} Normal 1.4-7.0 [facility] Work Phone: Neutrophils/100 WBC (Bld) 63 % Normal [facility] Work Phone: Comment on above: PATIENT WAS FASTINGP ERFORMED BY: KEVEN [place] 1804270 [facility] [id number] Neutrophils/100 WBC Auto (Bld) 63 % Normal [facility] Work Phone: Platelets #/vol (Bld) 340 {x10E3/uL} Normal 150-379 [facility] Work Phone: Comment on above: PATIENT WAS FASTINGP ERFORMED BY: KEVEN [place] 1804270 [facility] [id number] Platelets Auto #/vol (Bld) 340 {x10E3/uL} Normal 150-379 [facility] Work Phone: RBC #/vol (Bld) 4.73 {x10E6/uL} Normal 3.77-5.28 [facility] Internal Medicine Work Phone: Comment on above: PATIENT WAS FASTINGP ERFORMED BY: KEVEN [place] 1804270 [facility] [id number] RBC Auto #/vol (Bld) 4.73 {x10E6/uL} Normal 3.77-5.28 [facility] Work Phone: WBC #/vol (Bld) 7.7 {x10E3/uL} Normal 3.4-10.8 [facility] Internal Medicine Work Phone: Comment on above: PATIENT WAS FASTINGP ERFORMED BY: LabChristopher [place] 9612170 [facility] [id number] WBC Auto #/vol (Bld) 7.7 {x10E3/uL} Normal 3.4-10.8 [facility] Work Phone: CBC W/AUTO DIFF WBC (94539)O rdered By: Associate Account Executive on 12-07-2017 Basophils (Bld) [#/Vol] 0.0 10*3/uL Normal 0.0-0.2 [facility]; [facility] Work Phone: Comment on above: PATIENT WAS FASTINGP ERFORMED BY: KEVEN Iggy Cordoba[address] [facility] [place] [id number] Eosinophils (Bld) [#/Vol] 0.3 10*3/uL Normal 0.0-0.4 [facility]; [facility] Work Phone: Comment on above: PATIENT WAS FASTINGP ERFORMED BY: KEVEN [facility] Xonply4107 [address] [facility] [place] [id number] Immature granulocytes (Bld) [#/Vol] 0.0 10*3/uL Normal 0.0-0.1 [facility]; [facility] Work Phone: Comment on above: PATIENT WAS FASTINGP ERFORMED BY: Haydee Slyoja5164 [facility] [id number] Lymphocytes (Bld) [#/Vol] 2.3 10*3/uL Normal 0.7-3.1 [facility]; [facility] Work Phone: Comment on above: PATIENT WAS FASTINGP ERFORMED BY: KEVEN LabAndreia Tehstj9142 [address] [facility] [id number] Monocytes (Bld) [#/Vol] 0.3 10*3/uL Normal 0.1-0.9 [facility]; [facility] Work Phone: Comment on above: PATIENT WAS FASTINGP ERFORMED BY: [facility] Wuiqtg0196 [address] [facility] [place] [id number] Neutrophils (Bld) [#/Vol] 4.8 10*3/uL Normal 1.4-7.0 [facility]; [facility] Work Phone: Comment on above: PATIENT WAS FASTINGP ERFORMED BY: [facility] Macqik8279 [address] [facility]bl[facility] [place] [id number] Platelets (Bld) [#/Vol] 340 10*3/uL Normal 150-379 [facility]; [facility] Work Phone: Comment on above: PATIENT WAS FASTINGP ERFORMED BY: KEVEN [facility] Gmjhkl3329 [address] [facility] [place] [id number] RBC (Bld) [#/Vol] 4.73 10*6/uL Normal 3.77-5.28 [facility] Internal Medicine; [facility] Internal Medicine Work Phone: Comment on above: PATIENT WAS FASTINGP ERFORMED BY: CB [facility] Zbqyrr9031 [address] [facility] Hospitalbl[facility] [place] [id number] WBC (Bld) [#/Vol] 7.7 10*3/uL Normal 3.4-10.8 [facility] Internal Medicine; [facility] Internal Medicine Work Phone: Comment on above: PATIENT WAS FASTINGP ERFORMED BY: KEVEN [facility] Mszxjy6556 [address] [facility] [place] [id number] ESR-F (SED RATE ERYTHROCYTE - FEMALE) ([id number])on 12-07-2017 ESR Velocity (Bld) 13 mm/h Normal 0-40 [facility] Internal Medicine Work Phone: Comment on above: PATIENT NOT FASTINGP ERFORMED BY: KEVEN [facility] Dbnuhk8043 [facility]in [place] [id number] LIPID PANEL (84730)on 2017 Cholesterol in HDL mass conc 41 mg/dL Normal [facility] Work Phone: Comment on above: PATIENT WAS FASTINGP ERFORMED BY: KEVEN [facility] Fefvkm9927 [facility] [place] [id number] Cholesterol in LDL mass conc 110 mg/dL Abnormal 0-99 [facility] Work Phone: Comment on above: PATIENT WAS FASTINGP ERFORMED BY: KEVEN [facility] Bjnpbo0146 [address] [facility] [place] [id number] Cholesterol in LDL/Cholesterol in HDL mass ratio 2.7 {ratio} Normal 0.0-3.2 [facility] Work Phone: Comment on above: LDL/HDL Ratio Men Wo men 1/2 Avg.Risk 1.0 1.5 Avg.Risk 3.6 3.2 2X Avg.Risk 6.2 5.0 3X Avg.Risk 8.0 6.1 PATIENT WAS FASTINGP ERFORMED BY: KEVEN LabOscar Mfyorm2889 [facility] [id number] Cholesterol in VLDL mass conc 28 mg/dL Normal 5-40 [facility] Work Phone: Comment on above: PATIENT WAS FASTINGP ERFORMED BY: KEVEN LabOscar AlexTpazhf5129 [facility] [id number] Cholesterol mass conc 179 mg/dL Normal 100-199 Com prehensive Internal Medicine Work Phone: Comment on above: PATIENT WAS FASTINGP ERFORMED BY: KEVEN LabOscar AlexNpwlyn2325 [facility] [id number] Triglyceride mass conc 141 mg/dL Normal 0-149 [facility] Work Phone: Comment on above: PATIENT WAS FASTINGP ERFORMED BY: KEVEN Alexlin6370 [facility] [id number] METABOLIC PANEL, COMPREHENSI VE (55028)on 12-07-2017 Albumin mass conc 4.0 g/dL Normal 3.6-4.8 Compreh [facility] Internal Medicine Work Phone: Comment on above: PATIENT WAS FASTINGP ERFORMED BY: KEVEN LabAndreiacassie Ntglgq9922 [facility] [id number] Albumin/Globulin mass ratio 1.4 {ratio} Normal 1.2-2.2 [facility] Internal Medicine Work Phone: Comment on above: PATIENT WAS FASTINGP ERFORMED BY: KEVEN [facility] Dpmilp9023 [facility] [id number] ALP enzyme act/vol 145 [iU]/L Abnormal 39-117 [facility] Work Phone: Comment on above: PATIENT WAS FASTINGP ERFORMED BY: KEVEN LabCocassie Stkukk0124 [facility] [id number] ALT enzyme act/vol 11 [iU]/L Normal 0-32 [facility] Internal [facility] Work Phone: Comment on above: PATIENT WAS FASTINGP ERFORMED BY: KEVEN [facility] Uxwpfk0757 Vega RoadDublin [place] [id number] AST enzyme act/vol 16 [iU]/L Normal 0-40 [facility] Internal [facility] Work Phone: Comment on above: PATIENT WAS FASTINGP ERFORMED BY: KEVEN [facility] Kpyynf9094 V[address] RoadDublin [place] [id number] Bilirubin mass conc 0.2 mg/dL Normal 0.0-1.2 [facility] Internal Medicine Work Phone: Comment on above: PATIENT WAS FASTINGP ERFORMED BY: KEVEN [facility] Smkkol8630 V[address] RoadDublin [place] [id number] Calcium mass conc 9.6 mg/dL Normal 8.7-10.3 Compreh [facility] Internal Medicine Work Phone: Comment on above: PATIENT WAS FASTINGP ERFORMED BY: KEVEN LabOscar AlexXjtrkq5111 Vega RoadDublin [place] [id number] Chloride molar conc 103 mmol/L Normal 96-106 Compr inscription [facility] Internal Medicine Work Phone: Comment on above: PATIENT WAS FASTINGP ERFORMED BY: KEVEN LabCocassie AlexCjstux9644 V[address] RoadDublin [place] [id number] CO2 molar conc 23 mmol/L Normal 20-29 [facility] Internal Medicine Work Phone: Comment on above: PATIENT WAS FASTINGP ERFORMED BY: KEVEN LabCocassie AlexKfssuf2941 [address] RoadDublin [place] [id number] Creatinine mass conc 0.91 mg/dL Normal 0.57-1.00 [facility] Internal Medicine Work Phone: Comment on above: PATIENT WAS FASTINGP ERFORMED BY: KEVEN [facility] Nrzpim3925 [address] RoadDublin [place] [id number] GFR/1.73 sq M predicted among blacks CKD-EPI vol rate/area (S/P/Bld) 79 mL/min/1.73 Normal [facility] Work Phone: Comment on above: PATIENT WAS FASTINGP ERFORMED BY: KEVEN [facility] Xfjyku3907 Vega RoadDuin [place] [id number] GFR/1.73 sq M predicted among non-blacks CKD-EPI vol rate/area (S/P/Bld) 69 mL/min/1.73 Normal Comprehensiv e Internal Medicine Work Phone: Comment on above: PATIENT WAS FASTINGP ERFORMED BY: KEVEN [facility] Fpyiek9013 [address] [facility] [id number] Globulin Calculated mass conc (S) 2.9 g/dL Normal 1.5-4.5 [facility] Work Phone: Globulin mass conc (S) 2.9 g/dL Normal 1.5-4.5 Co mprehensive Internal Medicine Work Phone: Comment on above: PATIENT WAS FASTINGP ERFORMED BY: KEVEN Alexlin6370 [facility] [id number] Glucose mass conc 103 mg/dL Abnormal 65-99 Compreh ensive Internal Medicine Work Phone: Comment on above: PATIENT WAS FASTINGP ERFORMED BY: KEVEN LabHarry [facility]. [facility] Wviytq6608 [facility] [id number] Potassium molar conc 4.9 mmol/L Normal 3.5-5.2 Comp rehensive Internal Medicine Work Phone: Comment on above: PATIENT WAS FASTINGP ERFORMED BY: KEVEN LabOscar AlexMnfrbc4023 [facility] [id number] Protein mass conc 6.9 g/dL Normal 6.0-8.5 Compreh ensive Internal Medicine Work Phone: Comment on above: PATIENT WAS FASTINGP ERFORMED BY: KEVEN [facility] Guoscp2465 [facility] [id number] Sodium molar conc 143 mmol/L Normal 134-144 Compreh ensive Internal Medicine Work Phone: Comment on above: PATIENT WAS FASTINGP ERFORMED BY: KEVEN [facility] Sitqjt6869 [address] [facility] [place] [id number] Urea nitrogen mass conc 13 mg/dL Normal 8-27 [facility] Work Phone: Comment on above: PATIENT WAS FASTINGP ERFORMED BY: KEVEN [employer] Zdnkea0072 [address] RoadDublin [place] [id number] Urea nitrogen/Creatinine mass ratio 14 mg/mg Normal 12-28 [facility] Work Phone: Comment on above: PATIENT WAS FASTINGP ERFORMED BY: KEVEN [facility] Bsqhio6227 [address] RoadDublin [place] [id number] METABOLIC PANEL, COMPREHENSI VE (04555)Ordered By: Associate Account Executive on 12-07-2017 ALP [Catalytic activity/Vol] 145 U/L Abnormal 39-117 [facility]; [facility] Work Phone: Comment on above: PATIENT WAS FASTINGP ERFORMED BY: KEVEN LabHarry [facility]. [facility] Nooczo9534 [address] RoadDublin [place] [id number] ALT [Catalytic activity/Vol] 11 U/L Normal 0-32 [facility]; [facility] Work Phone: Comment on above: PATIENT WAS FASTINGP ERFORMED BY: KEVEN BethHarry [facility]. [facility] Xamfon0759 [address] RoadDublin [place] [id number] AST [Catalytic activity/Vol] 16 U/L Normal 0-40 [facility]; [facility] Work Phone: Comment on above: PATIENT WAS FASTINGP ERFORMED BY: KEVEN Haydee Cowtre9880 [address] [facility]bl[facility] [place] [id number] MICROALBUMINon 12-07-2017 Albumin DL <= 20 mg/L mass conc (U) 10.3 ug/mL Normal [facility] Work Phone: Comment on above: PATIENT WAS FASTINGP ERFORMED BY: LabHarry [facility]. [facility] Whcwwc6084 [address] [facility]bl[facility] [place] [id number] Albumin/Creatinine mass ratio (U) 14.5 {mg/g_creat} Normal 0.0-30.0 [facility] Work Phone: Comment on above: Normal: 0.0 - 30.0 A lbuminuria: 31.0 - 300.0 Clinical albuminuria: >300.0 PATIENT WAS FASTINGP ERFORMED BY: KEVEN [facility] Loniry7393 [address] Roadblin [place] [id number] Creatinine mass conc (U) 71.0 mg/dL Normal [facility] Work Phone: Comment on above: PATIENT WAS FASTINGP ERFORMED BY: KEVEN [facility] Haktwx6354 [address] [facility]bl[facility] [place] [id number] Microscopic Examinationon Bacteria LM.HPF #/area (Urine sed) Few Normal [facility] Work Phone: Comment on above: PATIENT WAS FASTINGP ERFORMED BY: CB [facility] Pivwgx3145 Vega RoadUnc Hospitals Hills[facility] Campusin [place] [id number]; appt 12/14 Casts LM Nom (Urine sed) Hyaline casts Normal [facility] Work Phone: Comment on above: PATIENT WAS FASTINGP ERFORMED BY: KEVEN [facility] Mzxlxo3129 [address] [facility] [place] [id number]; appt 12/14 Casts LM Ql (Urine sed) Present Abnormal [facility] Work Phone: Comment on above: PATIENT WAS FASTINGP ERFORMED BY: KEVEN [facility] Lysiis2348 [address] [facility] [id number]; appt 12/14 Epithelial cells LM.HPF #/area (Urine sed) /[HPF] Abnormal 0 - 10 [facility] Work Phone: Comment on above: PATIENT WAS FASTINGP ERFORMED BY: KEVEN [facility] Pzpkzf9880 Vega RoadUnc Hospitals Hills[facility] Campusin [place] [id number]; appt 12/14 Mucus LM Ql (Urine sed) Present Normal [facility] Work Phone: Mucus Ql (Urine sed) Present Normal Comp rehensive [facility] Medicine Work Phone: Comment on above: PATIENT WAS FASTINGP ERFORMED BY: [facility] Xhklyi1173 Vega Roadblin [place] [id number]; appt 12/14 RBC LM.HPF #/area (Urine sed) 0-2 Normal 0 - 2 [facility] Work Phone: Comment on above: PATIENT WAS FASTINGP ERFORMED BY: [facility] Zjsjwy[address] [facility] [place] [id number]; appt 12/14 WBC LM.HPF #/area (Urine sed) 0-5 Normal 0 - 5 [facility] Work Phone: Comment on above: PATIENT WAS FASTINGP ERFORMED BY: KEVEN [facility] Iborai8668 Vega RoadDublin [place] [id number]; appt 12/14 TSH ([id number])on 12-07-2017 Thyrotropin Qn 1.460 {uIU/mL} Normal 0.450-4.500 Compr ehensive Internal Medicine Work Phone: Comment on above: PATIENT WAS FASTINGP ERFORMED BY: KEVEN [facility] Jwwokd3464 Vega RoadDublin [place] [id number] URINALYSIS, W/ MICRO ([id number]) on 12-07-2017 Appearance Nom (U) Clear Normal Compre hensive [facility] Work Phone: Comment on above: PATIENT WAS FASTINGP ERFORMED BY: KEVEN [facility] Pfvwpx7143 Vega RoadDublin [place] [id number] Bilirubin Ql (U) Negative Normal Comprehe nsive Internal Medicine Work Phone: Comment on above: PATIENT WAS FASTINGP ERFORMED BY: KEVEN [facility] Ppjsgz3282 [address] RoadDublin [place] [id number] Color Nom (U) Yellow Normal Comprehensi ve Internal Medicine Work Phone: Comment on above: PATIENT WAS FASTINGP ERFORMED BY: KEVEN [facility] Wkkssy2096 [address]ega RoadDublin [place] [id number] Glucose Ql (U) Negative Normal Comprehens jeff [facility] Work Phone: Comment on above: PATIENT WAS FASTINGP ERFORMED BY: KEVEN [facility] Gfhrxt9307 Vega RoadDublin [place] [id number] Hemoglobin Ql (U) Negative Normal Compreh ensive [facility] Medicine Work Phone: Comment on above: PATIENT WAS FASTINGP ERFORMED BY: KEVEN [facility] Omvlbc1236 [address] RoadDublin [place] [id number] Hemoglobin Test strip Ql (U) Negative Normal [facility] Work Phone: Ketones Ql (U) Negative Normal Comprehens jeff [facility] Work Phone: Comment on above: PATIENT WAS FASTINGP ERFORMED BY: KEVEN [facility] AlexNshrwf5322 Vega RoadDublin [place] [id number] Leukocyte esterase Test strip Ql (U) Negative Normal [facility] Work Phone: Comment on above: PATIENT WAS FASTINGP ERFORMED BY: KEVEN Cordoba6370 [address] RoadDublin [place] [id number] Microscopic observation LM Nom (Urine sed) See below: Normal [facility] Work Phone: Comment on above: Microscopic was oniel cated and was performed. PATIENT WAS FASTINGP ERFORMED BY: KEVEN Cordoba6370 [address] RoadDublin [place] [id number] Microscopic observation LM Nom (Urine sed) MICRON Normal [facility] Work Phone: Comment on above: Microscopic follows if indicated. PATIENT WAS FASTINGP ERFORMED BY: KEVEN Alexlin6370 [address] RoadDublin [place] [id number] Nitrite Ql (U) Negative Normal Comprehens jeff [facility] Work Phone: Comment on above: PATIENT WAS FASTINGP ERFORMED BY: KEVEN Cordoba[address]Dublin [place] [id number] Nitrite Test strip Ql (U) Negative Normal [facility] Work Phone: pH (U) 6.0 [pH] Normal 5.0-7.5 [facility] Work Phone: Comment on above: PATIENT WAS FASTINGP ERFORMED BY: KEVEN [facility] AlexHrypuh1061 Vega RoadDublin [place] [id number] pH Test strip (U) 6.0 [pH] Normal 5.0-7.5 Compreh ensive [facility] Work Phone: Protein Ql (U) Negative Normal Comprehens jeff [facility] Work Phone: Comment on above: PATIENT WAS FASTINGP ERFORMED BY: KEVEN [facility] AlexDlucjk1000 Vega RoadDublin [place] [id number] Protein Test strip Ql (U) Negative Normal [facility] Work Phone: Specific gravity Relative Density (U) 1.015 1 Normal 1.005-1.030 Comprehensi ve Internal Medicine Work Phone: Comment on above: PATIENT WAS FASTINGP ERFORMED BY: KEVEN Iggy Cordoba[address]Dublin [place] [id number] Urobilinogen Test strip mass conc (U) 0.2 mg/dL Normal 0.2-1.0 Comprehensiv e Internal Medicine Work Phone: Comment on above: PATIENT WAS FASTINGP ERFORMED BY: KEVEN Lab[facility] AlexYwghpq6334 Vega RoadDublin [place] [id number] URINALYSIS, W/ MICRO ([id number]) Ordered By: Associate Account Executive on 12-07-2017 Bilirubin Ql (U) Negative Normal Comprehe nsive Internal Medicine; [facility] Work Phone: Comment on above: PATIENT WAS FASTINGP ERFORMED BY: KEVEN Haydeecassie AlexEiorll9810 Vega RoadDublin [place] [id number] Glucose Ql (U) Negative Normal Comprehens jeff [facility]; [facility] Work Phone: Comment on above: PATIENT WAS FASTINGP ERFORMED BY: KEVEN Haydeecassie AlexAnseuy5269 [address] RoadDublin [place] [id number] Hemoglobin Ql (U) Negative Normal Compreh ensive Internal Medicine; [facility] Work Phone: Comment on above: PATIENT WAS FASTINGP ERFORMED BY: KEVEN BethOscar AlexJzkfzb6143 [address] RoadDublin [place] [id number] Ketones Ql (U) Negative Normal Comprehens jeff [facility]; [facility] Work Phone: Comment on above: PATIENT WAS FASTINGP ERFORMED BY: KEVEN LabAndreiacassie AlexBbdsmk6512 Vega RoadDublin [place] [id number] Leukocyte esterase Test strip Ql (U) Negative Normal [facility]; [facility] Work Phone: Comment on above: PATIENT WAS FASTINGP ERFORMED BY: KEVEN Lab[facility] AlexXbdcax9345 Vega RoadDublin [place] [id number] Nitrite Ql (U) Negative Normal Comprehens jeff [facility]; [facility] Work Phone: Comment on above: PATIENT WAS FASTINGP ERFORMED BY: KEVEN [facility] Awfzat3012 [facility] [id number] Protein Ql (U) Negative Normal Comprehens jeff [facility] Medicine; [facility] Work Phone: Comment on above: PATIENT WAS FASTINGP ERFORMED BY: KEVEN [facility] Qjsgbr0103 [facility] [id number] Urobilinogen (U) [Mass/Vol] 0.2 mg/dL Normal 0.2-1.0 [facility]; [facility] Work Phone: Comment on above: PATIENT WAS FASTINGP ERFORMED BY: KEVEN [employer] Pejlum2408 [facility] [id number] SPINE, LUMBOSACRAL; MIN 4 EWSon 07-14-2017 SPINE, LUMBOSACRAL; MIN 4 VIEWS Name: LETY SPENCER STUDY:SPINE, LUMBOSACRAL; MIN 4 VIEWS; 07/14/2017 2:20 pm INDICATION:Signs/Sympt oms: LUMBAR PAIN. COMPARISON:02/24/2017 ORDERING CLINICIAN:CHON VAZQUEZ FINDINGS:Patient is again status post L4-S1 posterior fusion and lower lumbarlaminectomy. The hardware is unchanged since prior, in anatomicalignment without abnormal adjacent lucency. No acute fracture ordislocation is seen. Mild discogenic degenerative changes are seen atL2-3. There is no evidence of dynamic instability onflexion/extension views. Surgical clips overlie the pelvis. Thereare diffuse mural calcifications of the visualized abdominal aorta. IMPRESSION:Redemonstra breanna lower lumbar laminectomy and fusion without evidenceof hardware complication.Kolby davis signed by: ROSALINO RODRIGEZ MD Normal [facility] Basic Metabolic Profile (BMP )on 07-09-2017 Basic metabolic 2000 panel 73 mL/min Normal [facility] Work Phone: Comment on above: GFR Calc [facility] [address] [place], [address] Basic metabolic 2000 panel 26.0 mmol/L Normal 21.0-32.0 [facility] Work Phone: Comment on above: [facility] [address] [place], [address] Basic metabolic 2000 panel 142 mmol/L Normal 136-145 [facility] Work Phone: Comment on above: [facility] [address] [place], [address] Basic metabolic 2000 panel 9.3 mg/dL Normal 8.5-10.1 [facility] Work Phone: Comment on above: [facility] [address] [place], [address] Basic metabolic 2000 panel 14.1 {RATIO} Normal 10-20 [facility] Work Phone: Comment on above: [facility] [address] [place], [address] Basic metabolic 2000 panel 51.66 ml/min Normal [facility] Work Phone: Comment on above: [facility] [address] [place], [address] Basic metabolic 2000 panel 3.8 mmol/L Normal 3.5-5.1 [facility] Work Phone: Comment on above: [facility] [address] [place], [address] Basic metabolic 2000 panel 60 mL/min Normal [facility] Work Phone: Comment on above: Non- GFR Calc [facility] [address] [place], [place], [phone] Basic metabolic 2000 panel 1.00 mg/dL Normal 0.55-1.02 [facility] Work Phone: Comment on above: The validity of the calculated GFR AND GFRAA in patients over70 years has not been determined. Clinical correlation isessential. [facility] [address] [place], [place], [address] Basic metabolic 2000 panel 14 mg/dL Normal 7-18 [facility] Work Phone: Comment on above: [facility] [address] [place], [place], [phone] Basic metabolic 2000 panel 83 mg/dL Normal 74-106 [facility] Work Phone: Comment on above: Please note revised GLUCOSE reference range [id number]/02/2018. [facility] [address] [place], [place], [address] Basic metabolic 2000 panel 9 1 Normal 5-15 [facility] Work Phone: Comment on above: [facility] [address] [place], [place], [phone] Basic metabolic 2000 panel 107 mmol/L Normal 98-107 [facility] Work Phone: Comment on above: [facility] [address] [place], [place], [id number] CBC W/Diff, Automatedon 05-2 Absolute Lymph 2.64 {X10_3/ul} Normal 0.83-4.51 Compr ehensive Internal Medicine Work Phone: Absolute Neut 6.9 {X10_3/uL} Normal 2.0-7.7 Compreh ensive Internal Medicine Work Phone: Comment on above: [facility] [address] [place], [place], [phone] Basophils/100 WBC (Bld) 0.4 % Normal 0-1 [facility] Work Phone: Comment on above: [facility] [address] [place], [place], [phone] Basophils/100 WBC Auto (Bld) 0.4 % Normal 0-1 [facility] Work Phone: Eosinophils/100 WBC (Bld) 2.4 % Normal 0-5 [facility] Work Phone: Comment on above: [facility] [address] [place], [address] Eosinophils/100 WBC Auto (Bld) 2.4 % Normal 0-5 [facility] Work Phone: Erythrocyte distribution width Auto Ratio (RBC) 13.7 % Normal 11.6-14.6 [facility] Work Phone: Erythrocyte distribution width Ratio (RBC) 13.7 % Normal 11.6-14.6 [facility] Work Phone: Comment on above: [facility] [address] [place], [place], [id number] Hematocrit Auto Volume Fraction (Bld) 39.6 % Normal 37-47 [facility] Work Phone: Hematocrit Volume Fraction (Bld) 39.6 % Normal 37-47 [facility] Work Phone: Comment on above: [place] [address] [place], [place], [phone] Hemoglobin mass conc (Bld) 13.1 g/dL Normal 12.0-15.0 [facility] Work Phone: Comment on above: [place] [address] [place], [address] IM GRAN % 0.300 % Normal 0.0-0.9 [facility] Work Phone: Comment on above: IG% - Immature Granu locytes (promyelocytes, myelocytes andmetamyelocytes) > 1% indicates that a LEFT SHIFT is Present. [facility] [address] [place], [place], [id number] Lymphocytes #/vol (Bld) 2.64 {X10_3/ul} Normal 0.83-4.51 [facility] Work Phone: Comment on above: [facility] [address] [place], [address] Lymphocytes/100 WBC (Bld) 25.0 % Normal 19-41 [facility] Work Phone: Comment on above: [facility] [address] [place], [address] Lymphocytes/100 WBC Auto (Bld) 25.0 % Normal 19-41 [facility] Work Phone: MCH Auto Entitic mass (RBC) 28.3 pg Normal 27.0-32.0 [facility] Work Phone: MCH Entitic mass (RBC) 28.3 pg Normal 27.0-32.0 [facility] Internal Medicine Work Phone: Comment on above: [facility] [address] [place], [address] MCHC Auto mass conc (RBC) 33.1 {g/gl} Normal 32-36 [facility] Work Phone: MCHC mass conc (RBC) 33.1 {g/gl} Normal 32-36 [facility] prehensive Internal Medicine Work Phone: Comment on above: [facility] [address] [place], [address] MCV Auto Entitic volume (RBC) 85.5 fL Normal 81-99 [facility] Work Phone: MCV Entitic volume (RBC) 85.5 fL Normal 81-99 [facility] Work Phone: Comment on above: [facility] [address] [place], [address] Monocytes/100 WBC Auto (Bld) 7.1 % Normal 0-10 [facility] Work Phone: Comment on above: [facility] [address] [place], [address] Monocytes/100 WBC Auto (Bld) 7.1 % Normal 0-10 [facility] Work Phone: Neutrophils/100 WBC (Bld) 64.8 % Normal 47-70 [facility] Work Phone: Comment on above: [facility] [address] [place], [address] Neutrophils/100 WBC Auto (Bld) 64.8 % Normal 47-70 [facility] Work Phone: Platelet mean volume Auto Entitic volume (Bld) 10.0 fL Normal 6.2-12.0 [facility] Work Phone: Platelet mean volume Entitic volume (Bld) 10.0 fL Normal 6.2-12.0 Comprehensi ve Internal Medicine Work Phone: Comment on above: [facility] [address] [place], [address] Platelets #/vol (Bld) 342 10*3/uL Normal 150-450 [facility] Work Phone: Comment on above: [facility] [address] [place], [address] Platelets Auto #/vol (Bld) 342 10*3/uL Normal 150-450 [facility] Work Phone: RBC #/vol (Bld) 4.63 {M/mm3} Normal 4.2-5.4 Compreh ensive Internal Medicine Work Phone: Comment on above: [facility] [address] [place], [address] RBC Auto #/vol (Bld) 4.63 {M/mm3} Normal 4.2-5.4 [facility] Work Phone: RDW SD 41.9 fL Normal 35.1-43.9 [facility] Work Phone: Comment on above: [facility] [address] [place], [address] WBC #/vol (Bld) 10.6 10*3/uL Normal 4.4-11.0 Compreh ensive Internal Medicine Work Phone: Comment on above: [facility] [address] [place], [place], [phone] WBC Auto #/vol (Bld) 10.6 10*3/uL Normal 4.4-11.0 [facility] Work Phone: CBC W/Diff, Automated 0.300 % Normal 0.0-0.9 [facility] prehensive Internal Medicine Work Phone: Comment on above: IG% - Immature Granu locytes (promyelocytes, myelocytes andmetamyelocytes) > 1% indicates that a LEFT SHIFT is Present. CBC W/Diff, Automated 41.9 fL Normal 35.1-43.9 [facility] prehensive Internal Medicine Work Phone: CBC W/Diff, Automated 2.64 {X10_3/ul} Normal 0.83-4.51 [facility] Work Phone: CBC W/Diff, Automated 6.9 {X10_3/uL} Normal 2.0-7.7 [facility] Work Phone: Troponin-Ion 07-09-2017 Troponin I.cardiac mass conc ng/mL Normal [facility] Work Phone: Comment on above: TROPONIN-I EXPECTED VALUES <0.045 Negative 0.045 - 0.590 Consistent with Cardiac Damage > OR = 0.600 Critical Value Not every elevated troponin is indicative of MT. Thesevalues should be used with clinical judgement in examiningthe patient's clinical picture for diagnosis. To establisha diagnosis of MT versus myocardial injury, there must be ademonstrated rise and/or fall in the troponin values, inaddition to ischemic symptoms, EKG changes, new regionalwall motion abnormality, and/or angiographical evidence. PLEASE NOTE: REFERENCE RANGES EDITED 17 [facility] [address] [place], [place], [phone] Basic Metabolic Profile (BMP )on 04-14-2017 Basic metabolic 2000 panel 113 mg/dL Abnormal 74-106 [facility] Work Phone: Comment on above: Fasting Glucose resu lt from 100 to 125 mg/dLsuggests IMPAIRED HOMEOSTASIS per A.D.A. criteria.Please note revised GLUCOSE reference range sqvudlsxm36/02/2018. [facility] [address] [place], [place], [address] Basic metabolic 2000 panel 7 1 Normal 5-15 [facility] Work Phone: Comment on above: [facility] [address] [place], [address] Basic metabolic 2000 panel 14 mg/dL Normal 7-18 [facility] Work Phone: Comment on above: [facility] [address] [place], [address] Basic metabolic 2000 panel 29.0 mmol/L Normal 21.0-32.0 [facility] Work Phone: Comment on above: [facility] [address] [place], [address] Basic metabolic 2000 panel 104 mmol/L Normal 98-107 [facility] Work Phone: Comment on above: [facility] [address] [place], [address] Basic metabolic 2000 panel 67 mL/min Normal [facility] Work Phone: Comment on above: Non- GFR Calc [facility] [address] [place], [address] Basic metabolic 2000 panel 3.8 mmol/L Normal 3.5-5.1 [facility] Work Phone: Comment on above: [facility] [address] [place], [address] Basic metabolic 2000 panel 81 mL/min Normal [facility] Work Phone: Comment on above: GFR Calc [facility] [address] [place], [place], [phone] Basic metabolic 2000 panel 56.77 ml/min Normal [facility] Work Phone: Comment on above: [facility] [address] [place], [place], [phone] Basic metabolic 2000 panel 140 mmol/L Normal 136-145 [facility] Work Phone: Comment on above: [facility] [address] [place], [place], [phone] Basic metabolic 2000 panel 0.91 mg/dL Normal 0.55-1.02 [facility] Work Phone: Comment on above: The validity of the calculated GFR AND GFRAA in patients over70 years has not been determined. Clinical correlation isessential. [facility] [address] [place], [place], [phone] Basic metabolic 2000 panel 9.3 mg/dL Normal 8.5-10.1 [facility] Work Phone: Comment on above: [facility] [address] [place], [place], [phone] Basic metabolic 2000 panel 15.4 {RATIO} Normal 10-20 [facility] Work Phone: Comment on above: [facility] [address] [place], [place], [address] CBC W/Diff, Automatedon 02-2 Absolute Lymph 3.08 {X10_3/ul} Normal 0.83-4.51 Compr ehensive Internal Medicine Work Phone: Absolute Neut 7.0 {X10_3/uL} Normal 2.0-7.7 Compreh ensive Internal Medicine Work Phone: Comment on above: [facility] [address] [place], [place], [phone] Basophils/100 WBC (Bld) 0.2 % Normal 0-1 [facility] Work Phone: Comment on above: [facility] [address] [place], [address] Basophils/100 WBC Auto (Bld) 0.2 % Normal 0-1 [facility] Work Phone: Eosinophils/100 WBC (Bld) 2.2 % Normal 0-5 [facility] Work Phone: Comment on above: [facility] [address] [place], [address] Eosinophils/100 WBC Auto (Bld) 2.2 % Normal 0-5 [facility] Work Phone: Erythrocyte distribution width Auto Ratio (RBC) 14.5 % Normal 11.6-14.6 [facility] Work Phone: Erythrocyte distribution width Ratio (RBC) 14.5 % Normal 11.6-14.6 [facility] Work Phone: Comment on above: [place] [address] [place], [address] Hematocrit Auto Volume Fraction (Bld) 41.7 % Normal 37-47 [facility] Work Phone: Hematocrit Volume Fraction (Bld) 41.7 % Normal 37-47 [facility] Work Phone: Comment on above: [place] [address] [place], [address] Hemoglobin mass conc (Bld) 13.6 g/dL Normal 12.0-15.0 [facility] Work Phone: Comment on above: [facility] [address] [place], [address] IM GRAN % 0.200 % Normal 0.0-0.9 [facility] Work Phone: Comment on above: IG% - Immature Granu locytes (promyelocytes, myelocytes andmetamyelocytes) > 1% indicates that a LEFT SHIFT is Present. [facility] [address] [place], [address] Lymphocytes #/vol (Bld) 3.08 {X10_3/ul} Normal 0.83-4.51 [facility] Work Phone: Comment on above: [facility] [address] [place], [address] Lymphocytes/100 WBC (Bld) 28.2 % Normal 19-41 [facility] Work Phone: Comment on above: [facility] [address] [place], [address] Lymphocytes/100 WBC Auto (Bld) 28.2 % Normal 19-41 [facility] Work Phone: MCH Auto Entitic mass (RBC) 28.3 pg Normal 27.0-32.0 [facility] Work Phone: MCH Entitic mass (RBC) 28.3 pg Normal 27.0-32.0 [facility] Internal Medicine Work Phone: Comment on above: [place] [address] [place], [address] MCHC Auto mass conc (RBC) 32.6 {g/gl} Normal 32-36 [facility] Work Phone: MCHC mass conc (RBC) 32.6 {g/gl} Normal 32-36 [facility] Internal Medicine Work Phone: Comment on above: [facility] [address] [place], [address] MCV Auto Entitic volume (RBC) 86.9 fL Normal 81-99 [facility] Work Phone: MCV Entitic volume (RBC) 86.9 fL Normal 81-99 [facility] Work Phone: Comment on above: [facility] [address] [place], [address] Monocytes/100 WBC Auto (Bld) 5.8 % Normal 0-10 [facility] Work Phone: Comment on above: [facility] [address] [place], [address] Monocytes/100 WBC Auto (Bld) 5.8 % Normal 0-10 [facility] Work Phone: Neutrophils/100 WBC (Bld) 63.4 % Normal 47-70 [facility] Work Phone: Comment on above: [facility] [address] [place], [address] Neutrophils/100 WBC Auto (Bld) 63.4 % Normal 47-70 [facility] Work Phone: Platelet mean volume Auto Entitic volume (Bld) 10.0 fL Normal 6.2-12.0 [facility] Work Phone: Platelet mean volume Entitic volume (Bld) 10.0 fL Normal 6.2-12.0 Comprehensi ve Internal Medicine Work Phone: Comment on above: [facility] [address] [place], [address] Platelets #/vol (Bld) 325 10*3/uL Normal 150-450 [facility] Work Phone: Comment on above: [facility] [address] [place], [address] Platelets Auto #/vol (Bld) 325 10*3/uL Normal 150-450 [facility] Work Phone: RBC #/vol (Bld) 4.80 {M/mm3} Normal 4.2-5.4 Compreh ensive Internal Medicine Work Phone: Comment on above: [facility] [address] [place], [address] RBC Auto #/vol (Bld) 4.80 {M/mm3} Normal 4.2-5.4 Co mprehensive Internal Medicine Work Phone: RDW SD 45.9 fL Abnormal 35.1-43.9 [facility] Work Phone: Comment on above: [facility] [address] [place], [address] WBC #/vol (Bld) 10.9 10*3/uL Normal 4.4-11.0 Compreh ensive Internal Medicine Work Phone: Comment on above: [facility] [address] [place], [address] WBC Auto #/vol (Bld) 10.9 10*3/uL Normal 4.4-11.0 [facility] Work Phone: CBC W/Diff, Automated 0.200 % Normal 0.0-0.9 [facility] prehensive Internal Medicine Work Phone: Comment on above: IG% - Immature Granu locytes (promyelocytes, myelocytes andmetamyelocytes) > 1% indicates that a LEFT SHIFT is Present. CBC W/Diff, Automated 45.9 fL Abnormal 35.1-43.9 [facility] prehensive Internal Medicine Work Phone: CBC W/Diff, Automated 7.0 {X10_3/uL} Normal 2.0-7.7 [facility] Work Phone: CBC W/Diff, Automated 3.08 {X10_3/ul} Normal 0.83-4.51 [facility] Work Phone: Urinalysis, Completeon 04-14 BACTERIA 1+ Normal [facility] Work Phone: Comment on above: Order Date: 04/14/17 How was Urine Obtained? CLEAN [facility] [address] [place], [address] CLARITY Cloudy Normal [facility] Work Phone: Comment on above: Order Date: 04/14/17 How was Urine Obtained? CLEAN [facility] [address] [place], [place], [phone] COLOR Straw Normal [facility] Work Phone: Comment on above: Order Date: 04/14/17 How was Urine Obtained? [facility] [address] [place], [phone] GLUCOSE, UR Normal Normal [facility] Work Phone: Comment on above: Order Date: 04/14/17 How was Urine Obtained? [facility] [address] [place], [phone]([phone] LEUK ESTERASE 25 /ul Abnormal Comprehensi ve Internal Medicine Work Phone: Comment on above: Order Date: 04/14/17 How was Urine Obtained? [facility] [address] [place], [phone](511) MUCUS, URINE 0 SEEN Normal Comprehensiv e Internal Medicine Work Phone: Comment on above: Order Date: 04/14/17 How was Urine Obtained? [facility] [address] [place], [place], [phone] NITRITE UR Negative Normal [facility] Work Phone: Comment on above: Order Date: 04/14/17 How was Urine Obtained? [facility] [address] [place], [phone](591) pH UR 6.5 1 Normal 5.0 - 8.0 [facility] Work Phone: Comment on above: Order Date: 04/14/17 How was Urine Obtained? [facility] [address] [place], [place], [address](112) Protein mass conc (U) Negative Normal Com prehensive Internal Medicine Work Phone: Comment on above: Order Date: 04/14/17 How was Urine Obtained? [facility] [address] [place], [phone](703) RBC #/vol (U) 0 SEEN Normal 0-5 Comprehensi ve Internal Medicine Work Phone: Comment on above: Order Date: 04/14/17 How was Urine Obtained? [facility] [address] [place], [address] RBC Test strip #/vol (U) 0 SEEN Normal 0-5 [facility] Work Phone: SP.GR. DIPSTX 1.010 1 Normal 1.002-1.030 Comprehens jeff Internal Medicine Work Phone: Comment on above: Order Date: 04/14/17 How was Urine Obtained? CLEAN [facility] [address] [place], [address] SQUAM EPI 5-10 SEEN Normal 5-10 [facility] Work Phone: Comment on above: Order Date: 04/14/17 How was Urine Obtained? [facility] [address] [place], [address] WBC 0-5 SEEN Normal 0-5 [facility] Work Phone: Comment on above: Order Date: 04/14/17 How was Urine Obtained? [facility] [address] [place], [address] SPINE, LUMBOSACRAL; MIN 4 EWSon 02-24-2017 SPINE, LUMBOSACRAL; MIN 4 VIEWS Name: LETY SPENCER STUDY:SPINE, LUMBOSACRAL; MIN 4 VIEWS; 02/24/2017 10:58 am INDICATION:Signs/Sympt oms: LUMBAR PAIN. COMPARISON:12/12/2016 ORDERING CLINICIAN:CHON VAZQUEZ FINDINGS:Four views of the lumbar spine including flexion and extensionweight-bearin g lateral views. Lumbar lordosis is preserved. Re- demonstrated L4-S1 bipedicularfusion and posterior decompression. No evidence for hardwarecomplication. Unchanged grade 1 anterolisthesis L5 over S1. Interbodydisc spacer again noted at L5-S1. Mild discogenic degenerative changeat L2-3 and L3-4. No evidence of static instability. Atheroscleroticcalcifi c disease of the abdominal aorta. IMPRESSION:Re-demonstr ated postsurgical changes of L4-S1 posterior fusion andposterior decompression with intact hardware. No evidence of dynamicinstability. Electronically signed by: DO Chris DRISCOLL [facility] SPINE, LUMBOSACRAL; 2 OR 3 V IEWSon 12-12-2016 SPINE, LUMBOSACRAL; 2 OR 3 VIEWS Name: LETY SPENCER STUDY:SPINE, LUMBOSACRAL; 2 OR 3 VIEWS; 12/12/2016 2:17 pm INDICATION:Signs/Sympt oms: LUMBAR PAIN. COMPARISON:09/25/2015 ORDERING CLINICIAN:CHON VAZQUEZ FINDINGS:Posterior fusion hardware is present from the L4 through S1 levels,with interval bilateral pedicle screws and fusion rods at the F9ckeji. Laminectomy defects are present at the L4 and L5 levels,unchanged. The hardware appears intact and in satisfactory alignment.The vertebral body heights and alignment are maintained. There is noevidence of acute fracture or subluxation. The intervertebral discspaces are fairly well maintained. Subtle endplate spurring ispresent at the L2-3 level, unchanged. Atherosclerotic vascularcalcifications are present within the abdomen and pelvis. IMPRESSION:Posterior decompression surgery and posterior fusion with intervalpostsurgical changes at the L5 level. Stable, mild degenerativechanges without evidence of acute bony abnormality. Electronically signed by: EMILY RIZO MD, JOHN Normal [facility] Discharge Summaryon 12-05-19 Discharge Summary Send Summary:Dischar Summary Providers:Provider Role Provider Name? Referring Vicente Hamilton? Attending Vicente Hamilton? Primary Moises Del Rio BNote Recipients: Vicente Hamilton MDReynolds, David B, MD - [phone] []Discharge:Summary:Ad mission Date: .24-Nov-2016 11:06:00Discharge Date: 66-Smt-2100Aqxhnddkb Physician at Discharge: Vicente HamiltonAdmission Reason: Lumbar radicular pain, Lumbar radiculopathy, chronic,Postlaminectom y syndrome of lumbar region,Final Discharge Diagnoses: Lumbar radicular pain, Lumbar radiculopathy,chronic, Postlaminectomy syndrome of lumbar region, status post lumbardecompression and fusionProcedures: Date: 24-Nov-2016 16:37:00Procedure Name: revision left L5/S1 decompression and TLIF with cage autograftand iliac crest bone marrow aspirate; revision of non-segmentalinstrumen tation; L5-S1 posterior instrumented fusion with autograft and iliaccrest bone marrow aspirate and revision instrumentation L4-V1Xbtmqmnld at Discharge: SatisfactoryDispositio n at Discharge: .HomeHospital Course:Lety is a 61 year old female admitted to the hospital on 11.24.16 followingrevision left L5/S1 decompression and TLIF with cage autograft and iliac crestbone marrow aspirate; revision of non-segmental instrumentation; L5-V4xluppyfix instrumented fusion with autograft and iliac crest bone marrowaspirate and revision instrumentation L4-S1 performed due to lumbar stenosisand lumbar radiculopathy. She did well following surgery. Pain was adequatelycontrolled. Diet was advanced without complication. DOE drain was discontinuedprior to discharge. She mobilized with PT/OT. She was discharged home insatisfactory condition on 11.26.16. She will follow-up with Dr. Hamilton' officein 2-3 weeks for new radiographs.Discharge Information:and Continuing Care:Discharge Instructions:Kellya l Orders: Additional Instructions: Discharge Instructions: Spine LumbarNO Pushing, Pulling, or Lifting of objects greater than 5-10 pounds for 6weeks.Avoid bending, twisting or turning of spine.Must always use log roll technique when getting in and out of bed.Avoid sitting in one position for long periods of time greater than one hour.Ambulate frequently.MAY NOT DRIVE while taking narcotic (Percocet/oxycodone, hydrocodone, etc) painmedication.Otherwi se, may drive after 24 hours from leaving the hospital.May resume regular diet after passing gas.Continue Magnesium Citrate until bowel movement.May shower after 5 days.Remove incisional wound VAC post-operative day #7Keep surgical incision clean and dry. Change dressing daily and as needed.Once incision is dry, may cover or leave uncovered.If you have nylon sutures, they will be removed by provider at follow up visit.If taking blood thinners (Coumadin, warfarin, Lovenox, etc), may restart 7 daysfollowing surgery or as directed by prescribing provider. Continue aspirindaily without restriction.AVOID NSAIDS (Advil, Aleve, Motrin, ibuprofen, naproxen, diclofenac, meloxicam,etc) FOR 3 MONTHS FOLLOWING FUSION SURGERYFor Prescription refills give at least 48 hoursTHINGS TO EXPECT:It is normal to have post-surgical back pain/spasms, even with small incisions.Ice and/or heat may be helpful.It is normal to have coming and going nerve pain in the legs as the nerveheals.o Nerve pain may be replaced initially with numbness and tingling/ pins andneedles.Week to week, post-surgical pain should become less often and less intense.Continue medication as prescribed.CALL PHYSICIAN:Sign of infection at incision site: increased redness and or swelling;increased pain and or tenderness; progressive drainage or an unusual odor.Excessive Bleeding: Slow general oozing that completely soaks dressing or freshbright red bleeding or bleeding that will not stop. Call office if drainagecontinue beyond [address] Vicente Hamilton? Office Baetriz Ortega ? Student Success Counselor Physician Outside [phone] [place] Care Certification: Home Care Agency: Other (with phone number[facility]mpJpfn-[phone] Skilled Disciplines Ordered: RN/Kalina Care Services: Home Care Skilled Service: assessment, wound careFollow Up Appointments:Follow-Up Appointment 01: Physician/Dept/Service : Dr. Hamilton' Office Reason for Referral: 2-3 week post-operative visit Phone Number: Appointment Line: Discharge Medications: Home Medication hydrochlorothiazide 12.5 mg oral capsule - 1 cap(s) orally once a day albuterol-ipratropium - inhaled 0.2% 1-4 times a day prn Ambien - 10 mg orally @ hs lisinopril 10 mg oral tablet - 1 tab(s) orally once a day pantoprazole 40 mg oral granule, delayed release - 1 each orally once a day simvastatin 40 mg oral tablet - 1 tab(s) orally once a day (at bedtime) Dulera 200 mcg-5 mcg/inh inhalation aerosol - 1 puff(s) inhaled 2 times a day fluticasone propionate - 0.5 orally 2 sprays each nostril bid mupirocin 2% topical ointment - Apply topically to both nostrils 2 times a day oxyCODONE-acetaminophe n 5 mg-325 mg oral tablet - 1-2 tab(s) orally every 4-6hours as needed for pain, wean down magnesium citrate 1.745 g/30 mL oral liquid - 100 milliliter(s) orally every 6hours with large glass of water until bowel movement cyclobenzaprine 10 mg oral tablet - 1 tab(s) orally 3 times a day as neededfor muscular pain/spasms, wean off PRN Medication docusate sodium 100 mg oral capsule - 1 cap(s) orally 2 times a day,to preventConstipationVen tolin HFA 90 mcg/inh inhalation aerosol - 2 puff(s) inhaled 4 times a day,As NeededLab Results - Pending: NoneRadiology Results - Pending: NoneElectronic Signatures:Chon Vazquez (PAC) (Signed 04-Dec-2016 14:17) Authored: Send Summary, Summary Content, Ongoing Care,Signature/Marcin william/AttestationLast Updated: 04-Dec-2016 14:17 by Chon Vazquez (PAC) Normal [facility] BASIC METABOLIC PANELon - Anion gap 10 mmol/L Normal 10 - 20 [facility] Comment on above: Performed By: #### B MP ####[facility] [id number] [place] [address] Bicarbonate (HCO3) 27 mmol/L Normal 21 - 32 [facility] Comment on above: Performed By: #### B MP ####[facility] [id number] [place] [address] Calcium 9.3 mg/dL Normal 8.6 - 10.3 [facility] Comment on above: Performed By: #### B MP ####[facility] [id number] [place] [address] Chloride 106 mmol/L Normal 98 - 107 [facility] Comment on above: Performed By: #### B MP ####[facility] [id number] [place] [id number] Creatinine 0.88 mg/dL Normal 0.50 - 1.05 [facility] Comment on above: Performed By: #### B MP ####[facility] [id number] [place] [address] eGFR (non-black) mL/min/{1.73_m2} Normal >60 [facility] Comment on above: Result Comment: CALC ULATIONS OF ESTIMATED GFR ARE PERFORMED USING THE MDRD STUDY EQUATION FOR THE IDMS-TRACEABLE CREATININE METHODS. CLIN CHEM 2007;53:766-72 Performed By: #### B MP ####[facility] [id number] [place] [id number] Glucose mass conc 172 mg/dL High 74 - 99 [facility] Comment on above: Performed By: #### B MP ####[facility] [id number] [place] [id number] Potassium molar conc 4.6 mmol/L Normal 3.5 - 5.3 [facility] Comment on above: Performed By: #### B MP ####[facility] [id number] [place] [id number] Sodium 138 mmol/L Normal 136 - 145 [facility] Comment on above: Performed By: #### B MP ####[facility] [id number] [place] [id number] Urea nitrogen 20 mg/dL Normal 6 - 23 [facility] Comment on above: Performed By: #### B MP ####[facility] [id number] [place] [address] CBCon 11-26-2016 Erythrocyte distribution width Auto Ratio (RBC) 13.5 % Normal 11.5 - 14.5 [facility] Comment on above: Performed By: #### C BC ####[facility] [id number] [place] [id number] Erythrocytes (RBC) 4.06 x10E12/L Normal 4.00 - 5.20 [facility] Comment on above: Performed By: #### C BC ####[facility] [id number] [place] [address] Hematocrit (HCT) 36.6 % Normal 36.0 - 46.0 [facility] Comment on above: Performed By: #### C BC ####[facility] [id number] [place] [address] Hemoglobin mass conc (Bld) 12.1 g/dL Normal 12.0 - 16.0 [facility] Comment on above: Performed By: #### C BC ####[facility] [id number] [place] [id number] MCHC mass conc (RBC) 33.1 g/dL Normal 32.0 - 36.0 [facility] Comment on above: Performed By: #### C BC ####[facility] [id number] [place] [address] MCV 90 fL Normal 80 - 100 [facility] Comment on above: Performed By: #### C BC ####[facility] [id number] [place] [id number] Platelets 306 10*3/uL Normal 150 - 450 [facility] Comment on above: Performed By: #### C BC ####[facility] [id number] [place] [id number] WBC (Leukocytes) 22.6 10*3/uL High 4.4 - 11.3 [facility] Comment on above: Performed By: #### C BC ####[facility] [id number] [place] [address] BASIC METABOLIC PANELon 10--2016 Anion gap 13 mmol/L Normal 10 - 20 [facility] Comment on above: Performed By: #### B MP ####[facility] [id number] [place] [id number] Bicarbonate (HCO3) 24 mmol/L Normal 21 - 32 [facility] Comment on above: Performed By: #### B MP ####[facility] [id number] [place] [address] Calcium 9.2 mg/dL Normal 8.6 - 10.3 [facility] Comment on above: Performed By: #### B MP ####[facility] [id number] [place] [address] Chloride 105 mmol/L Normal 98 - 107 [facility] Comment on above: Performed By: #### B MP ####[facility] [id number] [place] [address] Creatinine 0.82 mg/dL Normal 0.50 - 1.05 [facility] Comment on above: Performed By: #### B MP ####[facility] [id number] [place] [id number] eGFR (non-black) mL/min/{1.73_m2} Normal >60 [facility] Comment on above: Performed By: #### B MP ####[facility] [id number] [place] [id number] Result Comment: CALC ULATIONS OF ESTIMATED GFR ARE PERFORMED USING THE MDRD STUDY EQUATION FOR THE IDMS-TRACEABLE CREATININE METHODS. CLIN CHEM 2007;53:766-72 Glucose mass conc 163 mg/dL High 74 - 99 [facility] Comment on above: Performed By: #### B MP ####[facility] [id number] [place] [id number] Potassium molar conc 4.5 mmol/L Normal 3.5 - 5.3 [facility] Comment on above: Performed By: #### B MP ####[facility] [id number] [place] [id number] Sodium 137 mmol/L Normal 136 - 145 [facility] Comment on above: Performed By: #### B MP ####[facility] [id number] [place] [id number] Urea nitrogen 17 mg/dL Normal 6 - 23 [facility] Comment on above: Performed By: #### B MP ####[facility] [id number] [place] [id number] CBCon 11-25-2016 Erythrocyte distribution width Auto Ratio (RBC) 13.3 % Normal 11.5 - 14.5 [facility] Comment on above: Performed By: #### C BC ####[facility] [id number] [place] [id number] Erythrocytes (RBC) 4.20 x10E12/L Normal 4.00 - 5.20 [facility] Comment on above: Performed By: #### C BC ####[facility] [id number] [place] [address] Hematocrit (HCT) 37.6 % Normal 36.0 - 46.0 [facility] Comment on above: Performed By: #### C BC ####[facility] [id number] [place] [address] Hemoglobin mass conc (Bld) 12.2 g/dL Normal 12.0 - 16.0 [facility] Comment on above: Performed By: #### C BC ####[facility] [id number] [place] [address] MCHC mass conc (RBC) 32.4 g/dL Normal 32.0 - 36.0 [facility] Comment on above: Performed By: #### C BC ####[facility] [id number] [place] [address] MCV 90 fL Normal 80 - 100 [facility] Comment on above: Performed By: #### C BC ####[facility] [id number] [place] [address] Platelets 288 10*3/uL Normal 150 - 450 [facility] Comment on above: Performed By: #### C BC ####[facility] [id number] [place] [address] WBC (Leukocytes) 13.1 10*3/uL High 4.4 - 11.3 [facility] Comment on above: Performed By: #### C BC ####[facility] [id number] [place] [address] GI FLOUROSCOPY, UP TO 1 HRon 11-24-2016 GI FLOUROSCOPY, UP TO 1 HR Name: LETY SPENCER STUDY:GI FLOUROSCOPY, UP TO 1 HR; 11/24/2016 4:42 pm INDICATION:M48.06. COMPARISON:None. ORDERING CLINICIAN:VICENTE HAMILTON FINDINGS:Intraoperativ e fluoroscopy was utilized for localization during L5-Y3rltuwnyvkndtg and fusion.Multiple intraoperative spot fluoroscopic images were obtained.Recommend correlation with real-time interoperative fluoroscopicfindings and procedure note. IMPRESSION:Intraoperat jeff fluoroscopy for localization. Recommend correlationwith real-time fluoroscopic findings and procedure note.Electronically signed by: ANDREW LOBO MD Normal [facility] Office Visit: asthmaon 11-14 Protein mass conc Done Invalid Interpretation Code [facility] Work Phone: Tobacco smoking status NHIS Never Invalid Interpretation Code [facility] Work Phone: Tobacco smoking status ARIS Never smoker Invalid Interpretation Code [facility] Work Phone: BASIC METABOLIC PANELon 10-18 Anion gap 15 mmol/L Normal 10 - 20 [facility] Comment on above: Performed By: #### B MP ####[facility] [id number] [place] [id number] Bicarbonate (HCO3) 25 mmol/L Normal 21 - 32 [facility] Comment on above: Performed By: #### B MP ####[facility] [id number] [place] [id number] Calcium 9.9 mg/dL Normal 8.6 - 10.3 [facility] Comment on above: Performed By: #### B MP ####[facility] [id number] [place] [id number] Chloride 101 mmol/L Normal 98 - 107 [facility] Comment on above: Performed By: #### B MP ####[facility] [id number] [place] [id number] Creatinine 0.84 mg/dL Normal 0.50 - 1.05 [facility] Comment on above: Performed By: #### B MP ####[facility] [id number] [place] [id number] eGFR (non-black) mL/min/{1.73_m2} Normal >60 [facility] Comment on above: Performed By: #### B MP ####[facility] [id number] [place] [address] Result Comment: CALC ULATIONS OF ESTIMATED GFR ARE PERFORMED USING THE MDRD STUDY EQUATION FOR THE IDMS-TRACEABLE CREATININE METHODS. CLIN CHEM 2007;53:766-72 Glucose mass conc 88 mg/dL Normal 74 - 99 [facility] Comment on above: Performed By: #### B MP ####[facility] [id number] [place] [address] Potassium molar conc 3.9 mmol/L Normal 3.5 - 5.3 [facility] Comment on above: Performed By: #### B MP ####[facility] [id number] [place] [address] Sodium 137 mmol/L Normal 136 - 145 [facility] Comment on above: Performed By: #### B MP ####[facility] [id number] [place] [address] Urea nitrogen 19 mg/dL Normal 6 - 23 [facility] Comment on above: Performed By: #### B MP ####[facility] [id number] [place] [address] CBC AND DIFFERENTIALon 11-13 % AUTOMATED IMMATURE GRAN 0.3 % Normal 0.0 - 0.9 [facility] Comment on above: Result Comment: Perc ent differential counts (%) should be interpreted in the context of the absolute cell counts (cells/L). Performed By: #### C BCDF ####[facility] [id number] [place] [address] % NEUTROPHIL 59.7 % Normal 40.0 - 80.0 [facility] Comment on above: Performed By: #### C BCDF ####[facility] [id number] [place] [address] Basophils/100 WBC Auto (Bld) 0.09 x10E9/L Normal 0.00 - 0.10 [facility] Comment on above: Performed By: #### C BCDF ####[facility] [id number] [place] [address] Basophils/100 WBC Auto (Bld) 0.9 % Normal 0.0 - 2.0 [facility] Comment on above: Performed By: #### C BCDF ####[facility] [id number] [facility] [address] Eosinophils 0.28 10*3/uL Normal 0.00 - 0.70 [facility] Comment on above: Performed By: #### C BCDF ####[facility] [id number] [facility] [address] Eosinophils/100 leukocytes 2.9 % Normal 0.0 - 6.0 [facility] Comment on above: Performed By: #### C BCDF ####[facility] [id number] [place] [address] Erythrocyte distribution width Auto Ratio (RBC) 13.6 % Normal 11.5 - 14.5 [facility] Comment on above: Performed By: #### C BCDF ####[facility] [id number] [place] [address] Erythrocytes (RBC) 4.90 x10E12/L Normal 4.00 - 5.20 [facility] Comment on above: Performed By: #### C BCDF ####[facility] [id number] [place] [address] Hematocrit (HCT) 43.8 % Normal 36.0 - 46.0 [facility] Comment on above: Performed By: #### C BCDF ####[facility] [id number] [place] [address] Hemoglobin mass conc (Bld) 14.3 g/dL Normal 12.0 - 16.0 [facility] Comment on above: Performed By: #### C BCDF ####[facility] [id number] [place] [address] Lymphocytes 2.91 10*3/uL Normal 1.20 - 4.80 [facility] Comment on above: Performed By: #### C BCDF ####[facility] [id number] [facility] [address] Lymphocytes/100 leukocytes 30.1 % Normal 13.0 - 44.0 [facility] Comment on above: Performed By: #### C BCDF ####[facility] [id number] [place] [address] MCHC mass conc (RBC) 32.6 g/dL Normal 32.0 - 36.0 [facility] Comment on above: Performed By: #### C BCDF ####[facility] [id number] [place] [address] MCV 89 fL Normal 80 - 100 [facility] Comment on above: Performed By: #### C BCDF ####[facility] [id number] [place] [address] Monocytes 0.59 10*3/uL Normal 0.10 - 1.00 [facility] Comment on above: Performed By: #### C BCDF ####[facility] [id number] [place] [address] Monocytes/100 leukocytes 6.1 % Normal 2.0 - 10.0 [facility] Comment on above: Performed By: #### C BCDF ####[facility] [id number] [place] [id number] Neutrophils 5.77 10*3/uL Normal 1.20 - 7.70 [facility] Comment on above: Performed By: #### C BCDF ####[facility] [id number] [place] [id number] Platelets 328 10*3/uL Normal 150 - 450 [facility] Comment on above: Performed By: #### C BCDF ####[facility] [id number] [place] [id number] WBC (Leukocytes) 9.7 10*3/uL Normal 4.4 - 11.3 [facility] Comment on above: Performed By: #### C BCDF ####[facility] [id number] [place] [address] COAGULATION SCREENon 017 aPTT 31 s Normal 25 - 36 [facility] Comment on above: Result Comment: THE APTT IS NO LONGER USED FOR MONITORING UNFRACTIONATED HEPARIN THERAPY. FOR MONITORING HEPARIN THERAPY, USE THE HEPARIN ASSAY. Performed By: #### C OAGS ####[facility] [id number] [place] [address] INR Coag RelTime (PPP) 1.0 {INR} Normal 0.9 - 1.1 [facility] Comment on above: Performed By: #### C OAGS ####[facility] [id number] [place] [address] Prothrombin time (PT) Coag time (PPP) 11.3 s Normal 9.8 - 12.7 [facility] Comment on above: Performed By: #### C OAGS ####[facility] [id number] [place] [address] STAPH/MRSA SCREENon 11-14-19 17 Bilirubin (total) PATIENT: LETY SPENCER LOCATION: [facility] ER#: [id number] : 59 AGE: SEX: F ORDERED BY: ILIA HAMILTONE: ANTERIOR NARES COLLECTED: 11/13/16 14:12ANTIBIOTICS AT JUDY.: RECEIVED : 11/13/16 22:12SITE: Nasal R E S U L T S STAPH/MRSA SCREEN FINAL 11/15/16 16:01 NO Staphylococcus aureus ISOLATED. Normal [facility] Comment on above: Performed By: #### S TAPH ####[facility] [place] [address] TYPE + SCREENon 11-13-2016 ABO TYPE O Normal [facility] Comment on above: Performed By: #### T +S ####[facility] [id number] [place] [address] ANTIBODY SCREEN Negative Normal [facility] Comment on above: Result Comment: SPEC IMEN COLLECTED:_11/13/2016 ,AT:__1407___,BY__dhTYPE AND SCREEN EXPIRES AT MIDNIGHT OF THE .__ Performed By: #### T +S ####[facility] [id number] [place] [address] RH TYPE Positive Normal [facility] Comment on above: Performed By: #### T +S ####[facility] [id number] [place] [address] Office Visit: acute, asthmao n 11-06-2016 Documentation of current medications (procedure) Done Invalid Interpretation Code [facility] Work Phone: Protein mass conc Done Invalid Interpretation Code [facility] Work Phone: Tobacco smoking status NHIS Never Invalid Interpretation Code [facility] Work Phone: Tobacco smoking status NHIS Never smoker Invalid Interpretation Code [facility] Work Phone: Tobacco use CPHS Never smoker Invalid Interpretation Code [facility] Work Phone: Office Visit: Asthmaon 09-22 Documentation of current medications (procedure) Done Invalid Interpretation Code [facility] Work Phone: Tobacco smoking status NHIS Never Invalid Interpretation Code [facility] Work Phone: Tobacco use CPHS Never smoker Invalid Interpretation Code [facility] Work Phone: Microbiology: Culture, Sputu mon 09-18-2016 Bacteria identified Respiratory culture Nom (Sput) . Invalid Interpretation Code [facility] Work Phone: Microbiology: (P) Culture, S putumon 09-17-2016 Bacteria identified Respiratory culture Nom (Sput) Further studies to follow. [facility] Work Phone: Culture, Sputumon 09-16-2016 Bacteria identified Cx Nom (Sput) See Note Normal [facility] Work Phone: Comment on above: Gram StainAcceptable Specimen? Yes (<25 Epithelial cells per/lpf) Gram Stain Rare White Blood Cells Rare Epithelial cells 4+ Gram positive cocci Resp. CultureMixed normal respiratory kelvin. No Haemophilus, Streptococcus pneumoniae, beta-hemolytic Streptococcus or Staphylococcus aureus isolated. [facility] [id number] [place], [place], [id number] Microbiology: (P) Culture, S putumon 09-16-2016 Bacteria identified Respiratory culture Nom (Sput) . [facility] Work Phone: Office Visit: hanh reathon 09-15-2016 Documentation of current medications (procedure) Done Invalid Interpretation Code [facility] Work Phone: Protein mass conc Done [facility] Work Phone: Tobacco smoking status NHIS Never [facility] Work Phone: Tobacco smoking status ARIS Never smoker [facility] Work Phone: Tobacco use [facility] Never smoker Invalid Interpretation Code [facility] Work Phone: CBC W/AUTO DIFF WBC ([id number])o n 07-10-2016 Basophils #/vol (Bld) 0.0 {x10E3/uL} Normal 0.0-0.2 [facility] Work Phone: Comment on above: PATIENT WAS FASTINGP ERFORMED BY: [facility].comH[facility] [id number] Basophils Auto #/vol (Bld) 0.0 {x10E3/uL} Normal 0.0-0.2 [facility] Work Phone: Basophils/100 WBC (Bld) 0 % Normal [facility] Work Phone: Comment on above: PATIENT WAS FASTINGP ERFORMED BY: [facility] [id number] Basophils/100 WBC Auto (Bld) 0 % Normal [facility] Work Phone: Eosinophils #/vol (Bld) 0.3 {x10E3/uL} Normal 0.0-0.4 [facility] Work Phone: Comment on above: PATIENT WAS FASTINGP ERFORMED BY: [facility] [id number] Eosinophils Auto #/vol (Bld) 0.3 {x10E3/uL} Normal 0.0-0.4 [facility] Work Phone: Eosinophils/100 WBC (Bld) 3 % Normal [facility] Work Phone: Comment on above: PATIENT WAS FASTINGP ERFORMED BY: LabHutzel [facility] Hospital[address] [facility] [id number] Eosinophils/100 WBC Auto (Bld) 3 % Normal [facility] Work Phone: Erythrocyte distribution width Auto Ratio (RBC) 14.8 % Normal 12.3-15.4 [facility] Work Phone: Erythrocyte distribution width Ratio (RBC) 14.8 % Normal 12.3-15.4 [facility] Work Phone: Comment on above: PATIENT WAS FASTINGP ERFORMED BY: [facility]6370 [facility] [id number] Hematocrit Auto Volume Fraction (Bld) 43.5 % Normal 34.0-46.6 [facility] Work Phone: Hematocrit Volume Fraction (Bld) 43.5 % Normal 34.0-46.6 [facility] Work Phone: Comment on above: PATIENT WAS FASTINGP ERFORMED BY: Aesica PharmaceuticalsHudson County Meadowview HospitalNxsmlj1195 [facility] [id number] Hemoglobin mass conc (Bld) 14.4 g/dL Normal 11.1-15.9 [facility] Work Phone: Comment on above: PATIENT WAS FASTINGP ERFORMED BY: LabNevada Regional Medical CenterDkrhzr8425 [facility] [id number] Immature granulocytes #/vol (Bld) 0.0 {x10E3/uL} Normal 0.0-0.1 [facility] Work Phone: Comment on above: PATIENT WAS FASTINGP ERFORMED BY: LabCC videoHudson County Meadowview HospitalAaxszv5[address] [facility] [id number] Immature granulocytes/100 WBC (Bld) 0 % Normal [facility] Work Phone: Comment on above: PATIENT WAS FASTINGP ERFORMED BY: [facility]Co Xywyxk3192 [facility] [id number] Lymphocytes #/vol (Bld) 2.6 {x10E3/uL} Normal 0.7-3.1 [facility] Work Phone: Comment on above: PATIENT WAS FASTINGP ERFORMED BY: [facility]6370 [facility] [id number] Lymphocytes Auto #/vol (Bld) 2.6 {x10E3/uL} Normal 0.7-3.1 [facility] Work Phone: Lymphocytes/100 WBC (Bld) 31 % Normal [facility] Work Phone: Comment on above: PATIENT WAS FASTINGP ERFORMED BY: [place] 9350070 [facility] [id number] Lymphocytes/100 WBC Auto (Bld) 31 % Normal [facility] Work Phone: MCH Auto Entitic mass (RBC) 29.1 pg Normal 26.6-33.0 [facility] Work Phone: MCH Entitic mass (RBC) 29.1 pg Normal 26.6-33.0 [facility] Work Phone: Comment on above: PATIENT WAS FASTINGP ERFORMED BY: [place] 9350070 [facility] [id number] MCHC Auto mass conc (RBC) 33.1 g/dL Normal 31.5-35.7 [facility] Work Phone: MCHC mass conc (RBC) 33.1 g/dL Normal 31.5-35.7 [facility] Work Phone: Comment on above: PATIENT WAS FASTINGP ERFORMED BY: [place] 9350070 [facility] [id number] MCV Auto Entitic volume (RBC) 88 fL Normal 79-97 [facility] Work Phone: MCV Entitic volume (RBC) 88 fL Normal 79-97 [facility] Work Phone: Comment on above: PATIENT WAS FASTINGP ERFORMED BY: [facility]6370 [facility] [id number] Monocytes #/vol (Bld) 0.4 {x10E3/uL} Normal 0.1-0.9 [facility] Work Phone: Comment on above: PATIENT WAS FASTINGP ERFORMED BY: KEVEN [facility] Diplqv5945 [facility] [id number] Monocytes Auto #/vol (Bld) 0.4 {x10E3/uL} Normal 0.1-0.9 [facility] Work Phone: Monocytes/100 WBC (Bld) 5 % Normal [facility] Work Phone: Comment on above: PATIENT WAS FASTINGP ERFORMED BY: KEVEN [facility] Nobgde6922 [facility] [id number] Monocytes/100 WBC Auto (Bld) 5 % Normal [facility] Work Phone: Neutrophils #/vol (Bld) 5.1 {x10E3/uL} Normal 1.4-7.0 [facility] Work Phone: Comment on above: PATIENT WAS FASTINGP ERFORMED BY: KEVEN [facility] Dsodfi9804 [facility] [id number] Neutrophils Auto #/vol (Bld) 5.1 {x10E3/uL} Normal 1.4-7.0 [facility] Work Phone: Neutrophils/100 WBC (Bld) 61 % Normal [facility] Work Phone: Comment on above: PATIENT WAS FASTINGP ERFORMED BY: KEVEN [facility] Ednrsw7333 [facility] [id number] Neutrophils/100 WBC Auto (Bld) 61 % Normal [facility] Work Phone: Platelets #/vol (Bld) 278 {x10E3/uL} Normal 150-379 [facility] Work Phone: Comment on above: PATIENT WAS FASTINGP ERFORMED BY: KEVEN [place] 1804270 [facility] [id number] Platelets Auto #/vol (Bld) 278 {x10E3/uL} Normal 150-379 [facility] Work Phone: RBC #/vol (Bld) 4.95 {x10E6/uL} Normal 3.77-5.28 [facility] Work Phone: Comment on above: PATIENT WAS FASTINGP ERFORMED BY: KEVEN LabHutzel Women'S Hospital6370 [facility] [id number] RBC Auto #/vol (Bld) 4.95 {x10E6/uL} Normal 3.77-5.28 [facility] Work Phone: WBC #/vol (Bld) 8.4 {x10E3/uL} Normal 3.4-10.8 [facility] Work Phone: Comment on above: PATIENT WAS FASTINGP ERFORMED BY: KEVEN [facility]6370 [facility] [id number] WBC Auto #/vol (Bld) 8.4 {x10E3/uL} Normal 3.4-10.8 [facility] Work Phone: CBC W/AUTO DIFF WBC ([id number])O rdered By: Associate Account Executive on 07-10-2016 Basophils (Bld) [#/Vol] 0.0 10*3/uL Normal 0.0-0.2 [facility] Work Phone: Comment on above: PATIENT WAS FASTINGP ERFORMED BY: [facility]6370 [facility] [id number] Eosinophils (Bld) [#/Vol] 0.3 10*3/uL Normal 0.0-0.4 [facility]; [facility] Work Phone: Comment on above: PATIENT WAS FASTINGP ERFORMED BY: LabHutzel Women'S Hospital6370 [facility] [id number] Immature granulocytes (Bld) [#/Vol] 0.0 10*3/uL Normal 0.0-0.1 [facility]; [facility] Work Phone: Comment on above: PATIENT WAS FASTINGP ERFORMED BY: [facility]6370 [facility] [id number] Lymphocytes (Bld) [#/Vol] 2.6 10*3/uL Normal 0.7-3.1 [facility]; [facility] Work Phone: Comment on above: PATIENT WAS FASTINGP ERFORMED BY: KEVEN LabCocassie CordobaZskdzz6802 [address] RoadBonifacioblin [place] [id number] Monocytes (Bld) [#/Vol] 0.4 10*3/uL Normal 0.1-0.9 [facility]; [facility] Work Phone: Comment on above: PATIENT WAS FASTINGP ERFORMED BY: CB [facility] Ktbdhs6944 [address] RoadDublin [place] [id number] Neutrophils (Bld) [#/Vol] 5.1 10*3/uL Normal 1.4-7.0 [facility]; [facility] Work Phone: Comment on above: PATIENT WAS FASTINGP ERFORMED BY: [facility] Kdjrsa9426 [address] RoadDublin [place] [id number] Platelets (Bld) [#/Vol] 278 10*3/uL Normal 150-379 [facility]; [facility] Work Phone: Comment on above: PATIENT WAS FASTINGP ERFORMED BY: [facility] Nxfysv4145 [place] Roadblin [place] [id number] RBC (Bld) [#/Vol] 4.95 10*6/uL Normal 3.77-5.28 Compr ehensive [facility]; [facility] Work Phone: Comment on above: PATIENT WAS FASTINGP ERFORMED BY: [facility] Rrupan2384 [address] Roadblin [place] [id number] WBC (Bld) [#/Vol] 8.4 10*3/uL Normal 3.4-10.8 Compre hensive [facility]; [facility] Work Phone: Comment on above: PATIENT WAS FASTINGP ERFORMED BY: KEVEN [facility] Drhami6897 [address] RoadDublin [place] [id number] LIPID PANEL ([id number])on 2016 Cholesterol in HDL mass conc 61 mg/dL Normal [facility] Work Phone: Comment on above: PATIENT WAS FASTINGP ERFORMED BY: KEVEN LabCocassie Jlmmda9252 [address] Roadblin [place] [id number] Cholesterol in LDL mass conc 109 mg/dL Abnormal 0-99 [facility] Work Phone: Comment on above: PATIENT WAS FASTINGP ERFORMED BY: KEVEN LabOscar AlexKpsabf2589 [address] Roadblin [place] [id number] Cholesterol in LDL/Cholesterol in HDL mass ratio 1.8 {ratio_units} Normal 0.0-3.2 [facility] Work Phone: Comment on above: LDL/HDL Ratio Men Wo men 1/2 Avg.Risk 1.0 1.5 Avg.Risk 3.6 3.2 2X Avg.Risk 6.2 5.0 3X Avg.Risk 8.0 6.1 PATIENT WAS FASTINGP ERFORMED BY: KEVEN LabCocassie AlexMqqdua8673 Vega RoadUnc Hospitals Hillsborough Campusin [place] [id number] Cholesterol in VLDL mass conc 23 mg/dL Normal 5-40 [facility] Work Phone: Comment on above: PATIENT WAS FASTINGP ERFORMED BY: KEVEN LabOscar Dhqchz[address] [facility] [place] [id number] Cholesterol mass conc 193 mg/dL Normal 100-199 Com prehensive [facility] Work Phone: Comment on above: PATIENT WAS FASTINGP ERFORMED BY: KEVEN LabOscar AlexYylawq2867 [address] [facility] [place] [id number] Triglyceride mass conc 114 mg/dL Normal 0-149 Co [facility] hospitalehens[facility] Work Phone: Comment on above: PATIENT WAS FASTINGP ERFORMED BY: KEVEN LabCocassie Vlndhr[address] [facility]bl[facility] [place] [id number] METABOLIC PANEL, COMPREHENSI VE ([id number])on 07-10-2016 Albumin mass conc 4.0 g/dL Normal 3.5-5.5 Compreh ensive [facility] Work Phone: Comment on above: PATIENT WAS FASTINGP ERFORMED BY: KEVEN [facility] Bffjsb2394 [address] RoadDublin [place] [id number] Albumin/Globulin mass ratio 1.3 {ratio} Normal 1.2-2.2 [facility] Work Phone: Comment on above: PATIENT WAS FASTINGP ERFORMED BY: KEVEN LabAndreia Mdjumx4349 [address] Roadblin [place] [id number] ALP enzyme act/vol 107 [iU]/L Normal 39-117 [facility] Work Phone: Comment on above: PATIENT WAS FASTINGP ERFORMED BY: LabHutzel [facility] Hospital6[address] [facility]in [place] [id number] ALT enzyme act/vol 15 [iU]/L Normal 0-32 [facility] Work Phone: Comment on above: PATIENT WAS FASTINGP ERFORMED BY: KEVEN LabHarry [facility]. [facility] Dwrsix8773 [address] Roadblin [place] [id number] AST enzyme act/vol 14 [iU]/L Normal 0-40 [facility] Work Phone: Comment on above: PATIENT WAS FASTINGP ERFORMED BY: KEVEN [facility] Djpzrh[address] [facility]in [place] [id number] Bilirubin mass conc 0.3 mg/dL Normal 0.0-1.2 Compr [facility] Work Phone: Comment on above: PATIENT WAS FASTINGP ERFORMED BY: KEVEN [facility] Fsvigo6065 [address] [facility]in [place] [id number] Calcium mass conc 9.7 mg/dL Normal 8.7-10.[address] [facility]ive Internal Medicine Work Phone: Comment on above: PATIENT WAS FASTINGP ERFORMED BY: KEVEN LabNevada Regional Medical CenterPluysj4457 [address] [facility]in [place] [id number] Chloride molar conc 99 mmol/L Normal 96-106 Compr ensive [facility] Work Phone: Comment on above: PATIENT WAS FASTINGP ERFORMED BY: LabHarry [facility]. [facility] Ygzsmb3330 [address]bl[address] [place] [id number] CO2 molar conc 27 mmol/L Normal 18-29 Comprehens jeff Internal Medicine Work Phone: Comment on above: PATIENT WAS FASTINGP ERFORMED BY: KEVEN [facility]6370 [facility] [id number] Creatinine mass conc 0.83 mg/dL Normal 0.57-1.00 Comp rehensive [facility] Medicine Work Phone: Comment on above: PATIENT WAS FASTINGP ERFORMED BY: KEVEN [facility] Uxvtvh6183 [facility] [id number] GFR/1.73 sq M predicted among blacks CKD-EPI vol rate/area (S/P/Bld) 89 mL/min/1.73 Normal [facility] Work Phone: Comment on above: PATIENT WAS FASTINGP ERFORMED BY: [facility]6370 [facility] [id number] GFR/1.73 sq M predicted among non-blacks CKD-EPI vol rate/area (S/P/Bld) 77 mL/min/1.73 Normal Comprehensiv e Internal Medicine Work Phone: Comment on above: PATIENT WAS FASTINGP ERFORMED BY: KEVEN [facility]6370 [facility] [id number] Globulin Calculated mass conc (S) 3.1 g/dL Normal 1.5-4.5 [facility] Work Phone: Globulin mass conc (S) 3.1 g/dL Normal 1.5-4.5 Co [facility] Work Phone: Comment on above: PATIENT WAS FASTINGP ERFORMED BY: LabH[facility]zel [facility] Hospital6370 [facility] [id number] Glucose mass conc 88 mg/dL Normal 65-99 Compreh ensive [facility] Medicine Work Phone: Comment on above: PATIENT WAS FASTINGP ERFORMED BY: LabHarry [facility]. [facility] Rucbya6470 [facility] [id number] Potassium molar conc 4.6 mmol/L Normal 3.5-5.2 Comp rehensive Internal Medicine Work Phone: Comment on above: PATIENT WAS FASTINGP ERFORMED BY: LabH[facility]zel [facility] Hospital6370 [facility] [id number] Protein mass conc 7.1 g/dL Normal 6.0-8.5 Compreh ensive [facility] Work Phone: Comment on above: PATIENT WAS FASTINGP ERFORMED BY: KEVEN [place]oba[address] [facility] [id number] Sodium molar conc 142 mmol/L Normal 134-144 Compreh ensive [facility] Medicine Work Phone: Comment on above: PATIENT WAS FASTINGP ERFORMED BY: KEVEN Cordoba[address] [facility] [id number] Urea nitrogen mass conc 19 mg/dL Normal 6-24 [facility] Work Phone: Comment on above: PATIENT WAS FASTINGP ERFORMED BY: KEVEN Alexlin6370 [facility] [id number] Urea nitrogen/Creatinine mass ratio 23 mg/mg Normal 9-23 [facility] Work Phone: Comment on above: PATIENT WAS FASTINGP ERFORMED BY: KEVEN Alexlin6370 [facility] [id number] METABOLIC PANEL, COMPREHENSI VE ([id number])Ordered By: Associate Account Executive on 07-10-2016 ALP [Catalytic activity/Vol] 107 U/L Normal 39-117 [facility]; [facility] Work Phone: Comment on above: PATIENT WAS FASTINGP ERFORMED BY: KEVEN LabOscar AlexCqrknn5874 [facility] [id number] ALT [Catalytic activity/Vol] 15 U/L Normal 0-32 [facility]; [facility] Work Phone: Comment on above: PATIENT WAS FASTINGP ERFORMED BY: KEVEN LabOscar Zaothq1840 [address] [facility] [id number] AST [Catalytic activity/Vol] 14 U/L Normal 0-40 [facility]; [facility] Work Phone: Comment on above: PATIENT WAS FASTINGP ERFORMED BY: KEVEN LabOscar AlexMthhmp2576 [address] [facility] [id number] TSH ([id number])on 07-10-2016 Thyrotropin Qn 1.640 {uIU/mL} Normal 0.450-4.500 Compr ehensive Internal Medicine Work Phone: Comment on above: PATIENT WAS FASTINGP ERFORMED BY: [facility] Fawqny6279 [facility] [id number] Lab Report: Allergens, Zone 8on 06-06-2016 GE use only - for LinkLogic import when terms are not otherwise specified Comment Invalid Interpretation Code . [facility] Work Phone: RAST COMMENT Comment Invalid Interpretation Code . [facility] Work Phone: Lab Report: Immunoglobulin E on 06-04-2016 IMMUNO E 38 [iU]/mL Invalid Interpretation Code 0-100 [facility] Work Phone: immunoglobulin E, serum, quantitative 38 [iU]/mL Invalid Interpretation Code 0-100 [facility] Work Phone: Allergens, Zone 8on 06-04-19 17 AKRTHIKRY, WHITE <0.10 Normal Comprehens jeff Internal Medicine Work Phone: Comment on above: Performed at: [facility] [place] [address] [id number] Director: John Trinidad MD, Phone: [phone] RAST COMMENT Comment Normal Comprehensiv e Internal Medicine Work Phone: Comment on above: Levels of Specific I gE Class Description of Class ----- < 0.10 0 Negative 0.10 - 0.31 0/I Equivocal/Low 0.32 - 0.55 I Low 0.56 - 1.40 II Moderate 1.41 - 3.90 III High 3.91 - 19.00 IV Very High 19.01 - 100.00 V Very High >100.00 Very High Allergens, Zone 8 <0.10 Normal Compreh ensive [facility] Medicine Work Phone: Comment on above: Performed at: [facility] [place] [address] [id number] Director: John Trinidad MD, Phone: [phone] Order Date: 06/03/16 Order Info: 0763-1 - *RASTZONE8 Allergens,Zone8 [id number] Date: 06/03/16Order Info: 0763- - *RASTZONE8 Allergens,Zone8 [id number](s) [id number] Cockroach, [place]i; [id number] Neal Gilbert; [id number] Sweet Gumwere developed and had performance characteristicsdetermined by [facility]. These tests have not been cleared orapproved by the U.S. Food and Drug Administration. The FDAhas determined that such clearance or approval is notnecessary. These tests are used for clinical purposes.These should not be regarded as investigational or forresearch.Order Date: 06/03/16Order Info: 0763-1 - *RASTZONE8 Allergens,Zone8 [id number] (refer to report for specific site)refer to report for address and phone number Allergens, Zone 8 Comment Normal Compreh ensive Internal Medicine Work Phone: Comment on above: Levels of Specific I gE Class Description of Class ----- < 0.10 0 Negative 0.10 - 0.31 0/I Equivocal/Low 0.32 - 0.55 I Low 0.56 - 1.40 II Moderate 1.41 - 3.90 III High 3.91 - 19.00 IV Very High 19.01 - 100.00 V Very High >100.00 Very High Order Date: 06/03/16 Order Info: 0763-1 - *RASTZONE8 Allergens,Zone8 [id number] Date: 06/03/16Order Info: 0763- - *RASTZONE8 Allergens,Zone8 110064Djlj(s) [id number] Cockroach, [place]; [id number] Vladimir White; [id number] Sweet Gumwere developed and had performance characteristicsdetermined by [employer]. These tests have not been cleared orapproved by the U.S. Food and Drug Administration. The FDAhas determined that such clearance or approval is notnecessary. These tests are used for clinical purposes.These should not be regarded as investigational or forresearch.Order Date: 06/03/16Order Info: 0763-1 - *RASTZONE8 Allergens,Zone8 [id number] (refer to report for specific site)refer to report for address and phone number Immunoglobulin Liam 7 IgE Qn 38 {IU/mL} Normal 0-100 [facility] Work Phone: Comment on above: Performed at: [address] [id number] Director: Saravanan Acosta PhD, Phone: [phone] Order Date: 06/03/16 Order Info: 2462-0 - *KENYON Immunoglobulin E (IgE)Order Date: 06/03/16Order Info: 2462-0 - *KENYON Immunoglobulin E (IgE)Order Date: 06/03/16Order Info: 0763-1 - *RASTZONE8 Allergens,Zone8 [id number] (refer to report for specific site)refer to report for address and phone number MICROALBUMINOrdered By: Syst em Street [employer] Line Installer on 02-13-2016 Albumin DL <= 20 mg/L (U) [Mass/Vol] mg/dL Normal [facility]; [facility] Work Phone: Comment on above: PATIENT NOT FASTINGP ERFORMED BY: [employer] [id number] MICROALBUMINon 02-13-2016 Albumin DL <= 20 mg/L mass conc (U) mg/dL Normal [facility] Work Phone: Comment on above: PATIENT NOT FASTINGP ERFORMED BY: [employer] [id number] Albumin/Creatinine mass ratio (U) <6.0 Normal 0.0-30.0 [facility] Work Phone: Comment on above: PATIENT NOT FASTINGP ERFORMED BY: KEVEN [facility] Qjnhmi1398 [address] RoadDublin [place] [id number] Creatinine mass conc (U) 49.6 mg/dL Normal [facility] Work Phone: Comment on above: PATIENT NOT FASTINGP ERFORMED BY: KEVEN [facility] Jbkicg4983 [address] RoadDublin [place] [id number] Microscopic Examinationon Bacteria LM.HPF #/area (Urine sed) Few Normal [facility] Work Phone: Comment on above: PATIENT NOT FASTINGP ERFORMED BY: KEVEN [facility] Dguzvn2385 V[address] Roadblin [place] [id number] Epithelial cells LM.HPF #/area (Urine sed) 0-10 Normal 0 - 10 [facility] Work Phone: Comment on above: PATIENT NOT FASTINGP ERFORMED BY: KEVEN [facility] Uktoro[address] [facility] [place] [id number] Mucus LM Ql (Urine sed) Present Normal [facility] Work Phone: Mucus Ql (Urine sed) Present Normal Comp rehensive Internal Medicine Work Phone: Comment on above: PATIENT NOT FASTINGP ERFORMED BY: KEVEN [facility] Oojhey[address] [facility]in [place] [id number] RBC LM.HPF #/area (Urine sed) 0-2 Normal 0 - 2 [facility] Work Phone: Comment on above: PATIENT NOT FASTINGP ERFORMED BY: KEVEN [facility] Gawspj[address] [facility]in [place] [id number] WBC LM.HPF #/area (Urine sed) 0-5 Normal 0 - 5 [facility] Work Phone: Comment on above: PATIENT NOT FASTINGP ERFORMED BY: KEVEN [facility] Blwtsh[address] [facility] Hospitalblin [place] [id number] URINALYSIS, W/ MICRO (34167) on 02-13-2016 Appearance Nom (U) Clear Normal Compre hensive Internal Medicine Work Phone: Comment on above: PATIENT NOT FASTINGP ERFORMED BY: KEVEN [facility] Erlxtz7920 [address] RoadDublin [place] [id number] Bilirubin Ql (U) Negative Normal Comprehe nsive Internal Medicine Work Phone: Comment on above: PATIENT NOT FASTINGP ERFORMED BY: KEVEN Alexlin6370 [address] RoadDublin [place] [id number] Color Nom (U) Yellow Normal Comprehensi ve Internal Medicine Work Phone: Comment on above: PATIENT NOT FASTINGP ERFORMED BY: KEVEN Alexlin6[address] Roadblin [place] [id number] Glucose Ql (U) Negative Normal Comprehens jeff [facility] Work Phone: Comment on above: PATIENT NOT FASTINGP ERFORMED BY: KEVEN Alexlin6[address] RoadUnc Hospitals Hillsborough Campusin [place] [id number] Hemoglobin Ql (U) Negative Normal Compreh ensive [facility] Medicine Work Phone: Comment on above: PATIENT NOT FASTINGP ERFORMED BY: KEVEN Alexlin6[address] RoadFormerly [facility] [id number] Hemoglobin Test strip Ql (U) Negative Normal [facility] Work Phone: Ketones Ql (U) Negative Normal Comprehens jeff [facility] Work Phone: Comment on above: PATIENT NOT FASTINGP ERFORMED BY: KEVEN Alexlin6[address] RoadMorton [place] [id number] Leukocyte esterase Test strip Ql (U) Trace Abnormal [facility] Work Phone: Comment on above: PATIENT NOT FASTINGP ERFORMED BY: KEVEN Alexlin6[address] [place] [id number] Microscopic observation LM Nom (Urine sed) See below: Normal [facility] Work Phone: Comment on above: Microscopic was oniel cated and was performed. PATIENT NOT FASTINGP ERFORMED BY: KEVEN HubbardHudson County Meadowview HospitalEzdffg6093 [address] RoadDublin [place] [id number] Nitrite Ql (U) Negative Normal Comprehens jeff [facility] Work Phone: Comment on above: PATIENT NOT FASTINGP ERFORMED BY: KEVEN Alexlin[address] [facility] Hospitalbl[facility] [place] [id number] Nitrite Test strip Ql (U) Negative Normal [facility] Work Phone: pH (U) 6.0 [pH] Normal 5.0-7.5 [facility] Work Phone: Comment on above: PATIENT NOT FASTINGP ERFORMED BY: KEVEN CamposAndreia Onjfxk9589 [address] Roadblin [place] [id number] pH Test strip (U) 6.0 [pH] Normal 5.0-7.5 Compreh ensive Internal Medicine Work Phone: Protein Ql (U) Negative Normal Comprehens jeff [facility] Work Phone: Comment on above: PATIENT NOT FASTINGP ERFORMED BY: KEVEN Cordoba6370 VegaWebster County Memorial Hospitalin [place] [id number] Protein Test strip Ql (U) Negative Normal [facility] Work Phone: Specific gravity Relative Density (U) 1.011 1 Normal 1.005-1.030 Comprehensi ve Internal Medicine Work Phone: Comment on above: PATIENT NOT FASTINGP ERFORMED BY: KEVEN Alexlin6370 [facility]in [place] [id number] Urobilinogen Test strip mass conc (U) 0.2 mg/dL Normal 0.2-1.0 Comprehensiv e Internal Medicine Work Phone: Comment on above: PATIENT NOT FASTINGP ERFORMED BY: KEVEN Hubbard Olhgnm3810 [facility] Hamiltonin [place] [id number] URINALYSIS, W/ MICRO (58971) Ordered By: Associate Account Executive on 02-13-2016 Bilirubin Ql (U) Negative Normal Comprehe nsive Internal Medicine; [facility] Work Phone: Comment on above: PATIENT NOT FASTINGP ERFORMED BY: KEVEN Alexlin6370 [facility] Hospitalbl[facility] [place] [id number] Glucose Ql (U) Negative Normal Comprehens jeff [facility]; [facility] Work Phone: Comment on above: PATIENT NOT FASTINGP ERFORMED BY: CB [facility] Uxwyiu9407 [address] RoadDublin [place] [id number] Hemoglobin Ql (U) Negative Normal Compreh ensive [facility] Medicine; [facility] Work Phone: Comment on above: PATIENT NOT FASTINGP ERFORMED BY: [facility] Dumniy8893 [address] RoadDublin [place] [id number] Ketones Ql (U) Negative Normal Comprehens jeff [facility]; [facility] Work Phone: Comment on above: PATIENT NOT FASTINGP ERFORMED BY: [facility] Wtgzma2906 [address] RoadDublin [place] [id number] Nitrite Ql (U) Negative Normal Comprehens jeff [facility]; [facility] Work Phone: Comment on above: PATIENT NOT FASTINGP ERFORMED BY: [facility] Dkaqpr0080 [address] RoadDublin [place] [id number] Protein Ql (U) Negative Normal Comprehens jeff [facility]; [facility] Work Phone: Comment on above: PATIENT NOT FASTINGP ERFORMED BY: [facility] Ohbmtk2317 [address] RoadDublin [place] [id number] Urobilinogen (U) [Mass/Vol] 0.2 mg/dL Normal 0.2-1.0 [facility]; [facility] Work Phone: Comment on above: PATIENT NOT FASTINGP ERFORMED BY: [facility] Fjgtuc3050 [address] RoadDublin [place] [id number] Rapid Flu (51811 x 2)Ordered By: Caterina Oneil on 01-31-2016 FLUAV Ag IA Ql (Throat) neg A/B Normal [facility] Work Phone: Rapid Strep Test, Office ([phone])Ordered By: Caterina Oneil on 01-31-2016 S. pyogenes Ag EIA Ql (Throat) Negative Normal [facility]; [facility] Work Phone: S. pyogenes Ag IA Ql (Unsp spec) Negative Normal [facility] Work Phone: Sputum W/ Gram Stain (11668) on 01-31-2016 Bacteria identified Cx Nom (Sput) Final report Normal [facility] Work Phone: Comment on above: PATIENT NOT FASTINGP ERFORMED BY: CB [facility] Lrnnce[address] [facility] [place] [id number] Information: SRC:SP Bacteria identified Cx Nom (Unsp spec) RRF Normal [facility] Work Phone: Comment on above: Routine respiratory kelvin PATIENT NOT FASTINGP ERFORMED BY: CB [facility] Qtbqyo[address] [facility] [place] [id number] Information: SRC:SP Microscopic observation Gram stain Nom (Unsp spec) Final report Normal [facility] Work Phone: Comment on above: PATIENT NOT FASTINGP ERFORMED BY: CB [facility] Rrkvym[address] [facility] [id number] Information: SRC:SP WBC #/vol (Bld) NWBC Normal Comprehen sive Internal Medicine Work Phone: Comment on above: No white blood cells seen. PATIENT NOT FASTINGP ERFORMED BY: CB [facility] Sugqoc[address] [facility] [place] [id number] Information: SRC:SP WBC Auto #/vol (Bld) NWBC Normal Comp rehensive Internal Medicine Work Phone: Comment on above: No white blood cells seen. Sputum W/ Gram Stain (33358) PCF Normal [facility] Work Phone: Comment on above: Few gram positive co cciGram negative coccobacillifew PATIENT NOT FASTINGP ERFORMED BY: CB [facility] Kfdmua[address] [facility] [place] [id number] Information: SRC:SP Sputum W/ Gram Stain (56970) Few epithelial cells. Normal Comprehens jeff [facility] Medicine Work Phone: Comment on above: PATIENT NOT FASTINGP ERFORMED BY: CB [facility] Dcevvs[address] [facility]in [place] [id number] Information: SRC:SP Sputum W/ Gram Stain (99966) Ordered By: Associate Account Executive on 01-31-2016 Sputum W/ Gram Stain (45802) NW Normal [facility]; [facility] Work Phone: Comment on above: No white blood cells seen. PATIENT NOT FASTINGP ERFORMED BY: KEVEN [facility] Ozbhks[address] CREATIVblin [place] [id number] Information: SRC:SP URINE RADHA CULTURE-ARVIND COL C OUNT (43596)on 01-31-2016 Bacteria identified Cx Nom (U) Escherichia coli Abnormal [facility] Work Phone: Comment on above: Greater than 100,000 colony forming units per mL PATIENT NOT FASTINGP ERFORMED BY: KEVEN [facility] Favidt[address] CREATIVblin [place] [id number] Information: SRC:RODRIGO Bacteria identified Cx Nom (U) Final report Abnormal [facility] Work Phone: Comment on above: PATIENT NOT FASTINGP ERFORMED BY: KEVEN [facility] Ubszfw[address] [facility] [place] [id number] Information: SRC:RODRIGO Other Antibiotic susc MIHEAD Normal Com prehensive [facility] Medicine Work Phone: Comment on above: S = Susceptible; I = Intermediate; R = Resistant P = Positive; N = Negative MICS are expressed in micrograms per mL Antibiotic RSLT#1 RSLT#2 RSLT#3 RSLT#4Amoxicillin/Clavulanic Acid SAmpicillin SCefepime SCeftriaxone SCefuroxime SCephalothin SCiprofloxacin SErtapenem SGentamicin SImipenem SLevofloxacin SNitrofurantoin SPiperacillin STetracycline STobramycin STrimethoprim/Sulfa S PATIENT NOT FASTINGP ERFORMED BY: KEVEN [facility] Mrdxpx[address] WalkHubUnc Hospitals Hillsborough Campusin [place] [id number] Information: SRC:RODRIGO Urinalysis, Office (51834)Or dered By: Amairani Bravo on 01-31-2016 Bilirubin Ql (U) Negative Normal Comprehe nsive Internal Medicine Work Phone: Bilirubin Ql (U) Negative Normal Comprehe nsive Internal Medicine; [facility] Work Phone: Glucose Test strip (U) [Mass/Vol] Negative Normal [facility]; [facility] Work Phone: Glucose Test strip mass conc (U) Negative Normal [facility] Work Phone: Hemoglobin Ql (U) +++ Abnormal Compreh ensive [facility] Medicine Work Phone: Hemoglobin Test strip Ql (U) +++ Abnormal [facility] Work Phone: Ketones Ql (U) Negative Normal Comprehens jeff [facility] Work Phone: Ketones Ql (U) Negative Normal Comprehens jeff [facility]; [facility] Work Phone: Leukocyte esterase Test strip Ql (U) Moderate Normal [facility] Work Phone: Nitrite Ql (U) Negative Normal Comprehens jeff [facility] Work Phone: Nitrite Ql (U) Negative Normal Comprehens jeff [facility]; [facility] Work Phone: Nitrite Test strip Ql (U) Negative Normal [facility] Work Phone: pH (U) 7 [pH] Normal [facility] Work Phone: pH Test strip (U) 7 [pH] Normal Compreh ensive Internal Medicine Work Phone: Protein Ql (U) 30 mg/dL Normal Comprehens jeff [facility] Work Phone: Protein Test strip Ql (U) 30 mg/dL Normal [facility] Work Phone: Specific gravity Relative Density (U) 1.020 1 Normal Comprehensi ve Internal Medicine Work Phone: Urobilinogen mass/time (24H U) Normal Normal [facility] Work Phone: CBC W/AUTO DIFF WBC (06972)o n 01-15-2016 Basophils #/vol (Bld) 0.0 {x10E3/uL} Normal 0.0-0.2 [facility] Work Phone: Comment on above: PATIENT WAS FASTINGP ERFORMED BY: LabCoHudson County Meadowview HospitalQgvtyn8834 [facility] [id number] Basophils Auto #/vol (Bld) 0.0 {x10E3/uL} Normal 0.0-0.2 [facility] Work Phone: Basophils/100 WBC (Bld) 0 % Normal [facility] Work Phone: Comment on above: PATIENT WAS FASTINGP ERFORMED BY: [employer] PharmaceuticalsNicholas [place] 9521570 [facility] [id number] Basophils/100 WBC Auto (Bld) 0 % Normal [facility] Work Phone: Eosinophils #/vol (Bld) 0.3 {x10E3/uL} Normal 0.0-0.4 [facility] Work Phone: Comment on above: PATIENT WAS FASTINGP ERFORMED BY: [facility] HospitalCC videoNicholas [place] 9521570 [facility] [id number] Eosinophils Auto #/vol (Bld) 0.3 {x10E3/uL} Normal 0.0-0.4 [facility] Work Phone: Eosinophils/100 WBC (Bld) 3 % Normal [facility] Work Phone: Comment on above: PATIENT WAS FASTINGP ERFORMED BY: [facility] HospitalCC videoHudson County Meadowview HospitalTvzxyv[address] [place] [address] [id number] Eosinophils/100 WBC Auto (Bld) 3 % Normal [facility] Work Phone: Erythrocyte distribution width Auto Ratio (RBC) 14.3 % Normal 12.3-15.4 [facility] Work Phone: Erythrocyte distribution width Ratio (RBC) 14.3 % Normal 12.3-15.4 [facility] Work Phone: Comment on above: PATIENT WAS FASTINGP ERFORMED BY: [address] [id number] Hematocrit Auto Volume Fraction (Bld) 42.4 % Normal 34.0-46.6 [facility] Work Phone: Hematocrit Volume Fraction (Bld) 42.4 % Normal 34.0-46.6 [facility] Work Phone: Comment on above: PATIENT WAS FASTINGP ERFORMED BY: LabH[facility]6370 [facility] [id number] Hemoglobin mass conc (Bld) 14.3 g/dL Normal 11.1-15.9 [facility] Work Phone: Comment on above: PATIENT WAS FASTINGP ERFORMED BY: [facility]6370 [facility] [id number] Immature granulocytes #/vol (Bld) 0.0 {x10E3/uL} Normal 0.0-0.1 [facility] Work Phone: Comment on above: PATIENT WAS FASTINGP ERFORMED BY: LabH[facility] Hospital6370 [facility] [id number] Immature granulocytes/100 WBC (Bld) 0 % Normal [facility] Work Phone: Comment on above: PATIENT WAS FASTINGP ERFORMED BY: [place] 9350070 [facility] [id number] Lymphocytes #/vol (Bld) 3.1 {x10E3/uL} Normal 0.7-3.1 [facility] Work Phone: Comment on above: PATIENT WAS FASTINGP ERFORMED BY: LabChristopher [place] 9612170 [facility] [id number] Lymphocytes Auto #/vol (Bld) 3.1 {x10E3/uL} Normal 0.7-3.1 [facility] Work Phone: Lymphocytes/100 WBC (Bld) 30 % Normal [facility] Work Phone: Comment on above: PATIENT WAS FASTINGP ERFORMED BY: LabH[facility]zel [facility] Hospital6370 [facility] [id number] Lymphocytes/100 WBC Auto (Bld) 30 % Normal [facility] Work Phone: MCH Auto Entitic mass (RBC) 29.1 pg Normal 26.6-33.0 [facility] Work Phone: MCH Entitic mass (RBC) 29.1 pg Normal 26.6-33.0 [facility] Work Phone: Comment on above: PATIENT WAS FASTINGP ERFORMED BY: KEVEN [facility] Vkiqgj0206 [facility] [id number] MCHC Auto mass conc (RBC) 33.7 g/dL Normal 31.5-35.7 [facility] Work Phone: MCHC mass conc (RBC) 33.7 g/dL Normal 31.5-35.7 [facility] Internal [facility] Work Phone: Comment on above: PATIENT WAS FASTINGP ERFORMED BY: KEVEN [facility] Xzxtkn9261 [facility] [id number] MCV Auto Entitic volume (RBC) 86 fL Normal 79-97 [facility] Work Phone: MCV Entitic volume (RBC) 86 fL Normal 79-97 [facility] Work Phone: Comment on above: PATIENT WAS FASTINGP ERFORMED BY: KEVEN CamposHarry S. [facility] Xrxnqe8674 [facility] [id number] Monocytes #/vol (Bld) 0.7 {x10E3/uL} Normal 0.1-0.9 [facility] Work Phone: Comment on above: PATIENT WAS FASTINGP ERFORMED BY: KEVEN [facility] CenterAndreia Soivrj7309 [facility] [id number] Monocytes Auto #/vol (Bld) 0.7 {x10E3/uL} Normal 0.1-0.9 [facility] Work Phone: Monocytes/100 WBC (Bld) 7 % Normal [facility] Work Phone: Comment on above: PATIENT WAS FASTINGP ERFORMED BY: [facility]6370 [facility] [id number] Monocytes/100 WBC Auto (Bld) 7 % Normal [facility] Work Phone: Neutrophils #/vol (Bld) 6.1 {x10E3/uL} Normal 1.4-7.0 [facility] Work Phone: Comment on above: PATIENT WAS FASTINGP ERFORMED BY: KEVEN [place] 1804270 [facility] [id number] Neutrophils Auto #/vol (Bld) 6.1 {x10E3/uL} Normal 1.4-7.0 [facility] Work Phone: Neutrophils/100 WBC (Bld) 60 % Normal [facility] Work Phone: Comment on above: PATIENT WAS FASTINGP ERFORMED BY: [place] 9350070 [facility] [id number] Neutrophils/100 WBC Auto (Bld) 60 % Normal [facility] Work Phone: Platelets #/vol (Bld) 288 {x10E3/uL} Normal 150-379 [facility] Work Phone: Comment on above: PATIENT WAS FASTINGP ERFORMED BY: KEVEN [place] 1804270 [facility] [id number] Platelets Auto #/vol (Bld) 288 {x10E3/uL} Normal 150-379 [facility] Work Phone: RBC #/vol (Bld) 4.92 {x10E6/uL} Normal 3.77-5.28 Comp rehensive Internal Medicine Work Phone: Comment on above: PATIENT WAS FASTINGP ERFORMED BY: [facility]6370 [facility] [id number] RBC Auto #/vol (Bld) 4.92 {x10E6/uL} Normal 3.77-5.28 [facility] Work Phone: WBC #/vol (Bld) 10.2 {x10E3/uL} Normal 3.4-10.8 Comp rehensive Internal Medicine Work Phone: Comment on above: PATIENT WAS FASTINGP ERFORMED BY: [place] 9350070 [facility] [id number] WBC Auto #/vol (Bld) 10.2 {x10E3/uL} Normal 3.4-10.8 [facility] Work Phone: CBC W/AUTO DIFF WBC (75865)O rdered By: Associate Account Executive on 01-15-2016 Basophils (Bld) [#/Vol] 0.0 10*3/uL Normal 0.0-0.2 [facility]; [facility] Work Phone: Comment on above: PATIENT WAS FASTINGP ERFORMED BY: [facility] Ybarwp7030 [address] RoadDublin [place] [id number] Eosinophils (Bld) [#/Vol] 0.3 10*3/uL Normal 0.0-0.4 [facility]; [facility] Work Phone: Comment on above: PATIENT WAS FASTINGP ERFORMED BY: [facility] Jnrcbj5007 [address] RoadDublin [place] [id number] Immature granulocytes (Bld) [#/Vol] 0.0 10*3/uL Normal 0.0-0.1 [facility]; [facility] Work Phone: Comment on above: PATIENT WAS FASTINGP ERFORMED BY: [facility] Wsxdym0952 [address] RoadDublin [place] [id number] Lymphocytes (Bld) [#/Vol] 3.1 10*3/uL Normal 0.7-3.1 [facility]; [facility] Work Phone: Comment on above: PATIENT WAS FASTINGP ERFORMED BY: [facility] Qgzljw6300 [address] RoadDublin [place] [id number] Monocytes (Bld) [#/Vol] 0.7 10*3/uL Normal 0.1-0.9 [facility]; [facility] Work Phone: Comment on above: PATIENT WAS FASTINGP ERFORMED BY: [facility] Qymwwa0891 [address] RoadDublin [place] [id number] Neutrophils (Bld) [#/Vol] 6.1 10*3/uL Normal 1.4-7.0 [facility]; [facility] Work Phone: Comment on above: PATIENT WAS FASTINGP ERFORMED BY: [facility] Vdfjbj5311 [address] RoadDublin [place] [id number] Platelets (Bld) [#/Vol] 288 10*3/uL Normal 150-379 [facility]; [facility] Work Phone: Comment on above: PATIENT WAS FASTINGP ERFORMED BY: KEVEN [facility] Oquxkj1033 [address] RoadDublin [place] [id number] RBC (Bld) [#/Vol] 4.92 10*6/uL Normal 3.77-5.28 Compr ensive Internal Medicine; [facility] Work Phone: Comment on above: PATIENT WAS FASTINGP ERFORMED BY: CB [facility] Oqcayr9517 [address] RoadDublin [place] [id number] WBC (Bld) [#/Vol] 10.2 10*3/uL Normal 3.4-10.8 [facility]erens[facility]; [facility] Work Phone: Comment on above: PATIENT WAS FASTINGP ERFORMED BY: KEVEN [facility] Dzrrmx[address] [facility]bl[facility] [place] [id number] LIPID PANEL (42240)on 2015 Cholesterol in HDL mass conc 49 mg/dL Normal [facility] Work Phone: Comment on above: PATIENT WAS FASTINGP ERFORMED BY: KEVEN [facility] [id number] [address] RoadDublin [place] [id number] Cholesterol in LDL mass conc 104 mg/dL Abnormal 0-99 [facility] Work Phone: Comment on above: PATIENT WAS FASTINGP ERFORMED BY: KEVEN [facility] [id number] [facility] [place] [id number] Cholesterol in LDL/Cholesterol in HDL mass ratio 2.1 {ratio_units} Normal 0.0-3.2 [facility] Work Phone: Comment on above: LDL/HDL Ratio Men Wo men 1/2 Avg.Risk 1.0 1.5 Avg.Risk 3.6 3.2 2X Avg.Risk 6.2 5.0 3X Avg.Risk 8.0 6.1 PATIENT WAS FASTINGP ERFORMED BY: CB [facility] [id number] [address] RoadDublin [place] [id number] Cholesterol in VLDL mass conc 29 mg/dL Normal 5-40 [facility] Work Phone: Comment on above: PATIENT WAS FASTINGP ERFORMED BY: KEVEN Cordoba6370 [facility] [id number] Cholesterol mass conc 182 mg/dL Normal 100-199 Com prehensive Internal Medicine Work Phone: Comment on above: PATIENT WAS FASTINGP ERFORMED BY: KEVEN Alexlin6370 [facility] [id number] Triglyceride mass conc 146 mg/dL Normal 0-149 Co [facility] Work Phone: Comment on above: PATIENT WAS FASTINGP ERFORMED BY: KEVEN Alexlin6370 [facility] [id number] METABOLIC PANEL, COMPREHENSI VE ([id number])on 01-15-2016 Albumin mass conc 4.0 g/dL Normal 3.5-5.5 Compreh [facility] Internal Medicine Work Phone: Comment on above: PATIENT WAS FASTINGP ERFORMED BY: KEVEN Alexlin6370 [facility] [id number] Albumin/Globulin mass ratio 1.4 {ratio} Normal 1.1-2.5 [facility] Internal Medicine Work Phone: Comment on above: PATIENT WAS FASTINGP ERFORMED BY: KEVEN Alexlin6370 [facility] [id number] ALP enzyme act/vol 111 [iU]/L Normal 39-117 [facility] Work Phone: Comment on above: PATIENT WAS FASTINGP ERFORMED BY: KEVEN Alexlin6370 [facility] [id number] ALT enzyme act/vol 21 [iU]/L Normal 0-32 Compre [facility] Internal Medicine Work Phone: Comment on above: PATIENT WAS FASTINGP ERFORMED BY: KEVEN Lab[facility] [id number] [facility] [id number] AST enzyme act/vol 21 [iU]/L Normal 0-40 [facility] Work Phone: Comment on above: PATIENT WAS FASTINGP ERFORMED BY: KEVEN Parkinson [id number] [address]Dublin [place] [id number] Bilirubin mass conc 0.3 mg/dL Normal 0.0-1.2 Compr ehensive Internal Medicine Work Phone: Comment on above: PATIENT WAS FASTINGP ERFORMED BY: KEVEN [facility] [id number] [address] RoadDublin [place] [id number] Calcium mass conc 9.4 mg/dL Normal 8.7-10.2 Compreh ensive Internal Medicine Work Phone: Comment on above: PATIENT WAS FASTINGP ERFORMED BY: KEVEN [facility] [id number] Vega RoadUnc Hospitals Hills[facility] Campusin [place] [id number] Chloride molar conc 99 mmol/L Normal 97-106 Compr ehensive Internal Medicine Work Phone: Comment on above: Effective January 28, 2016 the reference interval for Chloride, Serum will be changing to: 96 - 106 PATIENT WAS FASTINGP ERFORMED BY: KEVEN LabCocassie AlexKqlnss[address] [facility]in [place] [id number] CO2 molar conc 25 mmol/L Normal 18-29 Comprehens jeff Internal Medicine Work Phone: Comment on above: PATIENT WAS FASTINGP ERFORMED BY: KEVEN LabOscar AlexFryweq5879 [address] [facility]in [place] [id number] Creatinine mass conc 0.92 mg/dL Normal 0.57-1.00 Comp [facility] Work Phone: Comment on above: PATIENT WAS FASTINGP ERFORMED BY: CB [facility] [id number] Vega RoadUnc Hospitals Hills[facility] Campusin [place] [id number] GFR/1.73 sq M predicted among blacks CKD-EPI vol rate/area (S/P/Bld) 79 mL/min/1.73 Normal [facility] Work Phone: Comment on above: PATIENT WAS FASTINGP ERFORMED BY: CB [facility] [id number] Vega Roadblin [place] [id number] GFR/1.73 sq M predicted among non-blacks CKD-EPI vol rate/area (S/P/Bld) 69 mL/min/1.73 Normal Comprehensiv e Internal Medicine Work Phone: Comment on above: PATIENT WAS FASTINGP ERFORMED BY: KEVEN [facility] [id number] [address] RoadDublin [place] [id number] Globulin Calculated mass conc (S) 2.9 g/dL Normal 1.5-4.5 [facility] Work Phone: Globulin mass conc (S) 2.9 g/dL Normal 1.5-4.5 Co mprehensive [facility] Medicine Work Phone: Comment on above: PATIENT WAS FASTINGP ERFORMED BY: CB [facility] [id number] [address] RoadDublin [place] [id number] Glucose mass conc 90 mg/dL Normal 65-99 Compreh ensive Internal Medicine Work Phone: Comment on above: PATIENT WAS FASTINGP ERFORMED BY: KEVEN [facility] [id number] [address] RoadDublin [place] [id number] Potassium molar conc 4.5 mmol/L Normal 3.5-5.2 Comp [facility] Work Phone: Comment on above: PATIENT WAS FASTINGP ERFORMED BY: KEVEN [facility] [id number] [address] RoadDublin [place] [id number] Protein mass conc 6.9 g/dL Normal 6.0-8.5 Compreh ensive Internal Medicine Work Phone: Comment on above: PATIENT WAS FASTINGP ERFORMED BY: CB [facility] [id number] [address] RoadDublin [place] [id number] Sodium molar conc 139 mmol/L Normal 136-144 Compreh ensive Internal Medicine Work Phone: Comment on above: Effective January 28, 2016 the reference interval for Sodium, Serum will be changing to: 134 - 144 PATIENT WAS FASTINGP ERFORMED BY: CB [facility] [id number] [address] RoadDublin [place] [id number] Urea nitrogen mass conc 19 mg/dL Normal 6-24 [facility] Work Phone: Comment on above: PATIENT WAS FASTINGP ERFORMED BY: CB [facility] [id number] [address] RoadDublin [place] [id number] Urea nitrogen/Creatinine mass ratio 21 mg/mg Normal 9-23 [facility] Work Phone: Comment on above: PATIENT WAS FASTINGP ERFORMED BY: CB [facility] [id number] [address] RoadDublin [place] [id number] METABOLIC PANEL, COMPREHENSI VE ([id number])Ordered By: Associate Account Executive on 01-15-2016 ALP [Catalytic activity/Vol] 111 U/L Normal 39-117 [facility]; [facility] Work Phone: Comment on above: PATIENT WAS FASTINGP ERFORMED BY: CB [facility] [id number] [address] RoadDublin [place] [id number] ALT [Catalytic activity/Vol] 21 U/L Normal 0-32 [facility]; [facility] Work Phone: Comment on above: PATIENT WAS FASTINGP ERFORMED BY: CB [facility] [id number] [address] RoadDublin [place] [id number] AST [Catalytic activity/Vol] 21 U/L Normal 0-40 [facility]; [facility] Work Phone: Comment on above: PATIENT WAS FASTINGP ERFORMED BY: CB [facility] [id number] [address] RoadDublin [place] [id number] Vital Signs Date Time Vital Sign Value Performing Clinician Facility 08-29-2024 07:48-0400 Body mass index (BMI) [Ratio] 30.9 kg/m2 Dr. Elin Reynolds DO Work Phone: [facility] 08-29-2024 07:48-0400 Body temperature 97.3 [degF] Dr. Elin Reynolds DO Work Phone: [facility] 08-29-2024 07:48-0400 Body weight 81.[address] Elin Reynolds DO Work Phone: [facility] 08-29-2024 07:48-0400 Diastolic blood pressure 59 mm[Hg] Dr. Elin Reynolds DO Work Phone: [facility] 08-29-2024 07:48-0400 Heart rate 93 /min Dr. Elin Reynolds DO Work Phone: [facility] 08-29-2024 07:48-0400 Respiratory rate 17 /min Dr. Elin Reynolds DO Work Phone: [facility] 08-29-2024 07:48-0400 SaO2% (BldA) [Mass fraction] 96 % Dr. Elin Reynolds DO Work Phone: [facility] 08-29-2024 07:48-0400 Systolic blood pressure 129 mm[Hg] Dr. Elin Reynolds DO Work Phone: [facility] 05-03-2024 15:04-0400 Body height 162.[address] Elin Reynolds DO Work Phone: [facility] 05-03-2024 15:04-0400 Body mass index (BMI) [Ratio] 32.3 kg/m2 Dr. Elin Reynolds DO Work Phone: [facility] 05-03-2024 15:04-0400 Body weight 85.[address] Elin Reynolds DO Work Phone: [facility] 05-03-2024 15:04-0400 Diastolic blood pressure 86 mm[Hg] Dr. Elin Reynolds DO Work Phone: [facility] 05-03-2024 15:04-0400 Heart rate 89 /min Dr. Elin Reynolds DO Work Phone: [facility] 05-03-2024 15:04-0400 Respiratory rate 16 /min Dr. Elin Reynolds DO Work Phone: [facility] 05-03-2024 15:04-0400 SaO2% (BldA) [Mass fraction] 96 % Dr. Elin Reynolds DO Work Phone: [facility] 05-03-2024 15:04-0400 Systolic blood pressure 138 mm[Hg] Dr. Elin Reynolds DO Work Phone: [facility] 04-26-2024 23:00-0400 Body temperature 98 [degF] Dr. Elin Reynolds DO Work Phone: [facility] 04-26-2024 23:00-0400 Diastolic blood pressure 41 mm[Hg] Dr. Elin Reynolds DO Work Phone: [facility] 04-26-2024 23:00-0400 Heart rate 86 /min Dr. Elin Reynolds DO Work Phone: [facility] 04-26-2024 23:00-0400 Respiratory rate 18 /min Dr. Elin Reynolds DO Work Phone: [facility] 04-26-2024 23:00-0400 SaO2% (BldA) [Mass fraction] 95 % Dr. Elin Reynolds DO Work Phone: [facility] 04-26-2024 23:00-0400 Systolic blood pressure 128 mm[Hg] Dr. Elin Reynolds DO Work Phone: [facility] 04-26-2024 18:56-0400 Body height 162.[address] Elin Reynolds DO Work Phone: [facility] 04-26-2024 18:56-0400 Body mass index (BMI) [Ratio] 32 kg/m2 Dr. Elin Reynolds DO Work Phone: [facility] 04-26-2024 18:56-0400 Body weight 84.[address] Elin Reynolds DO Work Phone: [facility] 03-01-2024 10:07-0500 Body mass index (BMI) [Ratio] 32.1 kg/m2 Dr. Elin Reynolds DO Work Phone: [facility] 03-01-2024 10:07-0500 Body weight 85.[address] Elin Reynolds DO Work Phone: [facility] 03-01-2024 10:07-0500 Diastolic blood pressure 81 mm[Hg] Dr. Elin Reynolds DO Work Phone: [facility] 03-01-2024 10:07-0500 Heart rate 88 /min Dr. Elin Reynolds DO Work Phone: [facility] 03-01-2024 10:07-0500 Respiratory rate 18 /min Dr. Elin Reynolds DO Work Phone: [facility] 03-01-2024 10:07-0500 SaO2% (BldA) [Mass fraction] 98 % Dr. Elin Reynolds DO Work Phone: [facility] 03-01-2024 10:07-0500 Systolic blood pressure 142 mm[Hg] Dr. Elin Reynolds DO Work Phone: [facility] 01-27-2024 10:08-0500 Body mass index (BMI) [Ratio] 32.4 kg/m2 Dr. Elin Reynolds DO Work Phone: [facility] 01-27-2024 10:08-0500 Body weight 85.[address] Elin Reynolds DO Work Phone: [facility] 01-27-2024 10:08-0500 Diastolic blood pressure 73 mm[Hg] Dr. Elin Reynolds DO Work Phone: [facility] 01-27-2024 10:08-0500 Heart rate 101 /min Dr. Elin Reynolds DO Work Phone: [facility] 01-27-2024 10:08-0500 Respiratory rate 18 /min Dr. Elin Reynolds DO Work Phone: [facility] 01-27-2024 10:08-0500 SaO2% (BldA) [Mass fraction] 95 % Dr. Elin Reynolds DO Work Phone: [facility] 01-27-2024 10:08-0500 Systolic blood pressure 138 mm[Hg] Dr. Elin Reynolds DO Work Phone: [facility] 02-03-2023 14:27-0500 Body height 162.6 cm Vicente Hamilton MD Work Phone: [facility] 02-03-2023 14:27-0500 Body mass index (BMI) [Ratio] 32.79 kg/m2 Vicente Hamilton MD Work Phone: [facility] 02-03-2023 14:27-0500 Body weight 86.64 kg Vicente Hamilton MD Work Phone: [facility] 12-04-2022 09:58-0400 Body height 162.[address] Elin Reynolds Work Phone: [facility] 12-04-2022 09:58-0400 Respiratory rate 20 /min Dr. Elin Reynolds Work Phone: [facility] 11-10-2022 19:29-0400 Respiratory rate 18 /min Dr. Elin Reynolds Work Phone: [facility] 11-10-2022 16:05-0400 Body mass index (BMI) [Ratio] 33.5 kg/m2 Dr. Elin Reynolds Work Phone: [facility] 11-10-2022 16:05-0400 Body temperature 97.5 [degF] Dr. Elin Reynolds Work Phone: [facility] 11-10-2022 16:05-0400 Body weight 88.[address] Elin Reynolds Work Phone: [facility] 11-10-2022 16:05-0400 Diastolic blood pressure 73 mm[Hg] Dr. Elin Reynlods Work Phone: [facility] 11-10-2022 16:05-0400 Heart rate 94 /min Dr. Elin Reynolds Work Phone: [facility] 11-10-2022 16:05-0400 SaO2% (BldA) [Mass fraction] 98 % Dr. Elin Reynolds Work Phone: [facility] 11-10-2022 16:05-0400 Systolic blood pressure 146 mm[Hg] Dr. Elin Reynolds Work Phone: [facility] 11-06-2022 11:10-0400 Body height 162.56 cm OLIDNA Rojo LPN [facility]; [facility] Work Phone: 11-06-2022 11:10-0400 Body mass index (BMI) [Ratio] 33.47 kg/m2 OLINDA Rojo LPN [facility]; [facility] Work Phone: 11-06-2022 11:10-0400 Body surface area Derived from formula 1.94 m2 OLINDA Rojo LPN [facility]; [facility] Work Phone: 11-06-2022 11:10-0400 Body temperature 97.9 [degF] OLINDA Rojo LPN Com[facility]iv [facility]; [facility] Work Phone: 11-06-2022 11:10-0400 Body weight 88.45 kg OLINDA Rojo LPN [facility]; [facility] Work Phone: 11-06-2022 11:10-0400 Diastolic blood pressure 76 mm[Hg] OLINDA Rojo LPN [facility]; [facility] Work Phone: 11-06-2022 11:10-0400 Heart rate 96 /min OLINDA Rojo LPN [facility]; [facility] Work Phone: 11-06-2022 11:10-0400 Respiratory rate 18 /min OLINDA Rojo LPN [facility]; [facility] Work Phone: 11-06-2022 11:10-0400 SaO2% (BldA) [Mass fraction] 98 % OLINDA Rojo LPN [facility]; [facility] Work Phone: 11-06-2022 11:10-0400 Systolic blood pressure 126 mm[Hg] OLINDA Rojo LPN [facility]; [facility] Work Phone: 10-09-2022 10:36-0400 Body temperature 98 [degF] Dr. Elin Reynolds Work Phone: [facility] 10-09-2022 10:36-0400 Diastolic blood pressure 83 mm[Hg] Dr. Elin Reynolds Work Phone: [facility] 10-09-2022 10:36-0400 Heart rate 90 /min Dr. Elin Reynolds Work Phone: [facility] 10-09-2022 10:36-0400 Respiratory rate 20 /min Dr. Elin Reynolds Work Phone: [facility] 10-09-2022 10:36-0400 SaO2% (BldA) [Mass fraction] 95 % Dr. Elin Reynolds Work Phone: [facility] 10-09-2022 10:36-0400 Systolic blood pressure 114 mm[Hg] Dr. Elin Reynolds Work Phone: [facility] 09-23-2022 15:27-0400 Body height 162.[address] Elin Reynolds Work Phone: [facility] 09-10-2022 10:08-0400 Body height 162.56 cm [facility]; [facility] Work Phone: 09-10-2022 10:08-0400 Body mass index (BMI) [Ratio] 33.56 kg/m2 [facility]; [facility] Work Phone: 09-10-2022 10:08-0400 Body surface area Derived from formula 1.94 m2 [facility]; [facility] Work Phone: 09-10-2022 10:08-0400 Body temperature 96 [degF] [facility]; [facility] Work Phone: 09-10-2022 10:08-0400 Body weight 88.68 kg [facility]; [facility] Work Phone: 09-10-2022 10:08-0400 Diastolic blood pressure 70 mm[Hg] [facility]; [facility] Work Phone: 09-10-2022 10:08-0400 Heart rate 101 /min [facility]; [facility] Work Phone: 09-10-2022 10:08-0400 Respiratory rate 18 /min [facility]; [facility] Work Phone: 09-10-2022 10:08-0400 SaO2% (BldA) [Mass fraction] 96 % [facility]; [facility] Work Phone: 09-10-2022 10:08-0400 Systolic blood pressure 112 mm[Hg] [facility]; [facility] Work Phone: 08-20-2022 10:42-0400 Body height 162.56 cm Caterina Slarb [facility]; [facility] Work Phone: 08-20-2022 10:42-0400 Body mass index (BMI) [Ratio] 33.56 kg/m2 Caterina Slarb OPTIMIZATION SPECIALIST [facility]; [facility] Work Phone: 08-20-2022 10:42-0400 Body surface area Derived from formula 1.94 m2 Caterina Slarb OPTIMIZATION SPECIALIST [facility]; [facility] Work Phone: 08-20-2022 10:42-0400 Body temperature 96.9 [degF] Caterina Slarb OPTIMIZATION SPECIALIST [facility]; [facility] Work Phone: 08-20-2022 10:42-0400 Body weight 88.68 kg Caterina Slarb OPTIMIZATION SPECIALIST [facility]; [facility] Work Phone: 08-20-2022 10:42-0400 Diastolic blood pressure 72 mm[Hg] Caterina Slarb OPTIMIZATION SPECIALIST [facility]; [facility] Work Phone: 08-20-2022 10:42-0400 Heart rate 68 /min Caterina Clarice LOYOLA [facility]; [facility] Work Phone: 08-20-2022 10:42-0400 Respiratory rate 16 /min Caterina Clarice OPTIMIZATION SPECIALIST [facility]; [facility] Work Phone: 08-20-2022 10:42-0400 SaO2% (BldA) [Mass fraction] 97 % Caterina Clarice OPTIMIZATION SPECIALIST [facility]; [facility] Work Phone: 08-20-2022 10:42-0400 Systolic blood pressure 116 mm[Hg] Caterina Clarice OPTIMIZATION SPECIALIST [facility]; [facility] Work Phone: 08-14-2022 07:58-0400 Body height 162.[address] Elin Reynolds Work Phone: [facility] 08-14-2022 07:58-0400 Body mass index (BMI) [Ratio] 33.6 kg/m2 Dr. Elin Reynolds Work Phone: [facility] 08-14-2022 07:58-0400 Body temperature 97.5 [degF] Dr. Elin Reynolds Work Phone: [facility] 08-14-2022 07:58-0400 Body weight 88.[address] Elin Reynolds Work Phone: [facility] 08-14-2022 07:58-0400 Diastolic blood pressure 66 mm[Hg] Dr. Elin Reynolds Work Phone: [facility] 08-14-2022 07:58-0400 Heart rate 80 /min Dr. Elin Reynolds Work Phone: [facility] 08-14-2022 07:58-0400 Respiratory rate 18 /min Dr. Elin Reynolds Work Phone: [facility] 08-14-2022 07:58-0400 SaO2% (BldA) [Mass fraction] 96 % Dr. Elin Reynolds Work Phone: [facility] 08-14-2022 07:58-0400 Systolic blood pressure 116 mm[Hg] Dr. Elin Reynolds Work Phone: [facility] 06-24-2022 09:18-0400 Body temperature 98.2 [degF] Dr. Elin Reynolds Work Phone: [facility] 06-24-2022 09:18-0400 Diastolic blood pressure 70 mm[Hg] Dr. Elin Reynolds Work Phone: [facility] 06-24-2022 09:18-0400 Heart rate 92 /min Dr. Elin Reynolds Work Phone: [facility] 06-24-2022 09:18-0400 Respiratory rate 20 /min Dr. Elin Reynolds Work Phone: [facility] 06-24-2022 09:18-0400 SaO2% (BldA) [Mass fraction] 95 % Dr. Elin Reynolds Work Phone: [facility] 06-24-2022 09:18-0400 Systolic blood pressure 118 mm[Hg] Dr. Elin Reynolds Work Phone: [facility] 04-29-2022 09:27-0400 Body height 162.[address] Elin Reynolds Work Phone: [facility] 04-29-2022 09:27-0400 Body temperature 93.1 [degF] Dr. Elin Reynolds Work Phone: [facility] 04-29-2022 09:27-0400 Diastolic blood pressure 73 mm[Hg] Dr. Elin Reynolds Work Phone: [facility] 04-29-2022 09:27-0400 Heart rate 80 /min Dr. Elin Reynolds Work Phone: [facility] 04-29-2022 09:27-0400 Respiratory rate 20 /min Dr. Elin Reynolds Work Phone: [facility] 04-29-2022 09:27-0400 SaO2% (BldA) [Mass fraction] 97 % Dr. Elin Reynolds Work Phone: [facility] 04-29-2022 09:27-0400 Systolic blood pressure 122 mm[Hg] Dr. Elin Reynolds Work Phone: [facility] 04-28-2022 11:07-0400 Body height 162.56 cm Caterina Oneil LPN [facility]; [facility] Work Phone: 04-28-2022 11:07-0400 Body mass index (BMI) [Ratio] 33.56 kg/m2 Caterina Clarice DEANN [facility]; [facility] Work Phone: 04-28-2022 11:07-0400 Body surface area Derived from formula 1.94 m2 Caterina Clarice DEANN [facility]; [facility] Work Phone: 04-28-2022 11:07-0400 Body temperature 98.1 [degF] Caterina Christopherrb OPTIMIZATION SPECIALIST [facility]; [facility] Work Phone: 04-28-2022 11:07-0400 Body weight 88.68 kg Caterina Slarb OPTIMIZATION SPECIALIST [facility]; [facility] Work Phone: 04-28-2022 11:07-0400 Diastolic blood pressure 76 mm[Hg] Caterina Clarice DEANN [facility]; [facility] Work Phone: 04-28-2022 11:07-0400 Heart rate 100 /min Caterina Christopherrb OPTIMIZATION SPECIALIST [facility]; [facility] Work Phone: 04-28-2022 11:07-0400 Respiratory rate 16 /min Caterina Christopherrb OPTIMIZATION SPECIALIST [facility]; [facility] Work Phone: 04-28-2022 11:07-0400 SaO2% (BldA) [Mass fraction] 98 % Caterina Christopherrb OPTIMIZATION SPECIALIST [facility]; [facility] Work Phone: 04-28-2022 11:07-0400 Systolic blood pressure 118 mm[Hg] Caterina Oneil OPTIMIZATION SPECIALIST [facility]; [facility] Work Phone: 04-14-2022 14:55-0500 Body height 162.56 cm Elin Reynolds Work Phone: [facility] Work Phone: 04-14-2022 14:55-0500 Body mass index (BMI) [Ratio] 35.87 kg/m2 Elin Reynolds Work Phone: [facility] Work Phone: 04-14-2022 14:55-0500 Body surface area Derived from formula 1.99 m2 Elin Reynolds Work Phone: [facility] Work Phone: 04-14-2022 14:55-0500 Body temperature 98 [degF] Elin Reynolds Work Phone: [facility] Work Phone: 04-14-2022 14:55-0500 Body weight 94.8 kg Elin Reynolds Work Phone: [facility] Work Phone: 04-14-2022 14:55-0500 Diastolic blood pressure 69 mm[Hg] Elin Reynolds Work Phone: [facility] Work Phone: 04-14-2022 14:55-0500 Heart rate 95 /min Elin Reynolds Work Phone: [facility] Work Phone: 04-14-2022 14:55-0500 Respiratory rate 20 /min Elin Reynolds Work Phone: [facility] Work Phone: 04-14-2022 14:55-0500 SaO2% (BldA) [Mass fraction] 95 % Elin Reynolds Work Phone: [facility] Work Phone: 04-14-2022 14:55-0500 Systolic blood pressure 135 mm[Hg] Elin Reynolds Work Phone: [facility] Work Phone: 04-14-2022 14:55-0500 1 1 Elin Reynolds Work Phone: [facility] Work Phone: Comment on above: [employer] 03-04-2022 09:32-0500 Body height 162.[address] Elin Reynolds Work Phone: [facility] 03-04-2022 09:32-0500 Body mass index (BMI) [Ratio] 35.7 kg/m2 Dr. Elin Reynolds Work Phone: [facility] 03-04-2022 09:32-0500 Body temperature 97.8 [degF] Dr. Elin Reynolds Work Phone: [facility] 03-04-2022 09:32-0500 Body weight 94.[address] Elin Reynolds Work Phone: [facility] 03-04-2022 09:32-0500 Diastolic blood pressure 66 mm[Hg] Dr. Elin Reynolds Work Phone: [facility] 03-04-2022 09:32-0500 Heart rate 92 /min Dr. Elin Reynolds Work Phone: [facility] 03-04-2022 09:32-0500 Respiratory rate 20 /min Dr. Elin Reynolds Work Phone: [facility] 03-04-2022 09:32-0500 SaO2% (BldA) [Mass fraction] 97 % Dr. Elin Reynolds Work Phone: [facility] 03-04-2022 09:32-0500 Systolic blood pressure 112 mm[Hg] Dr. Elin Reynolds Work Phone: [facility] 02-04-2022 09:54-0500 Body mass index (BMI) [Ratio] 36.2 kg/m2 Dr. Elin Reynolds Work Phone: [facility] 02-04-2022 09:54-0500 Body temperature 97.7 [degF] Dr. Elin Reynolds Work Phone: [facility] 02-04-2022 09:54-0500 Body weight 95.[address] Elin Reynolds Work Phone: [facility] 02-04-2022 09:54-0500 Diastolic blood pressure 80 mm[Hg] Dr. Elin Reynolds Work Phone: [facility] 02-04-2022 09:54-0500 Heart rate 84 /min Dr. Elin Reynolds Work Phone: [facility] 02-04-2022 09:54-0500 Respiratory rate 18 /min Dr. Elin Reynolds Work Phone: [facility] 02-04-2022 09:54-0500 SaO2% (BldA) [Mass fraction] 97 % Dr. Elin Reynolds Work Phone: [facility] 02-04-2022 09:54-0500 Systolic blood pressure 132 mm[Hg] Dr. Elin Reynolds Work Phone: [facility] 01-07-2022 09:07-0500 Body temperature 93 [degF] Dr. Elin Reynolds Work Phone: [facility] 01-07-2022 09:07-0500 Diastolic blood pressure 77 mm[Hg] Dr. Elin Reynolds Work Phone: [facility] 01-07-2022 09:07-0500 Heart rate 87 /min Dr. Elin Reynolds Work Phone: [facility] 01-07-2022 09:07-0500 Respiratory rate 18 /min Dr. Elin Reynolds Work Phone: [facility] 01-07-2022 09:07-0500 SaO2% (BldA) [Mass fraction] 97 % Dr. Elin Reynolds Work Phone: [facility] 01-07-2022 09:07-0500 Systolic blood pressure 123 mm[Hg] Dr. Elin Reynolds Work Phone: [facility] 10-18-2021 18:28-0400 Body height 162.[address] lEin Reynolds Work Phone: [facility] Work Phone: 10-18-2021 18:28-0400 Body mass index (BMI) [Ratio] 33.5 kg/m2 Dr. Elin Reynolds Work Phone: [facility] Work Phone: 10-18-2021 18:28-0400 Body temperature 97.9 [degF] Dr. Elin Reynolds Work Phone: [facility] Work Phone: 10-18-2021 18:28-0400 Body weight 88.[address] Elin Reynolds Work Phone: [facility] Work Phone: 10-18-2021 18:28-0400 Diastolic blood pressure 78 mm[Hg] Dr. Elin Reynolds Work Phone: [facility] Work Phone: 10-18-2021 18:28-0400 Heart rate 100 /min Dr. Elin Reynolds Work Phone: [facility] Work Phone: 10-18-2021 18:28-0400 Respiratory rate 16 /min Dr. Elin Reynolds Work Phone: [facility] Work Phone: 10-18-2021 18:28-0400 SaO2% (BldA) [Mass fraction] 98 % Dr. Elin Reynolds Work Phone: [facility] Work Phone: 10-18-2021 18:28-0400 Systolic blood pressure 134 mm[Hg] Dr. Elin Reynolds Work Phone: [facility] Work Phone: 09-17-2021 09:04-0400 Body height 162.[address] Elin Reynolds Work Phone: [facility] Work Phone: 09-17-2021 09:04-0400 Body mass index (BMI) [Ratio] 35.2 kg/m2 Dr. Elin Reynolds Work Phone: [facility] Work Phone: 09-17-2021 09:04-0400 Body temperature 97.4 [degF] Dr. Elin Reynolds Work Phone: [facility] Work Phone: 09-17-2021 09:04-0400 Body weight 92.[address] Elin Reynolds Work Phone: [facility] Work Phone: 09-17-2021 09:04-0400 Diastolic blood pressure 80 mm[Hg] Dr. Elin Reynolds Work Phone: [facility] Work Phone: 09-17-2021 09:04-0400 Heart rate 93 /min Dr. Elin Reynolds Work Phone: [facility] Work Phone: 09-17-2021 09:04-0400 Respiratory rate 17 /min Dr. Elin Reynolds Work Phone: [facility] Work Phone: 09-17-2021 09:04-0400 SaO2% (BldA) [Mass fraction] 96 % Dr. Elin Reynolds Work Phone: [facility] Work Phone: 09-17-2021 09:04-0400 Systolic blood pressure 145 mm[Hg] Dr. Elin Reynolds Work Phone: [facility] Work Phone: 08-07-2021 09:18-0400 Body mass index (BMI) [Ratio] 35 kg/m2 Dr. Elin Reynolds Work Phone: [facility] Work Phone: 08-07-2021 09:18-0400 Body temperature 97.4 [degF] Dr. Elin Reynolds Work Phone: [facility] Work Phone: 08-07-2021 09:18-0400 Body weight 92.[address] Elin Reynolds Work Phone: [facility] Work Phone: 08-07-2021 09:18-0400 Diastolic blood pressure 83 mm[Hg] Dr. Elin Reynolds Work Phone: [facility] Work Phone: 08-07-2021 09:18-0400 Heart rate 99 /min Dr. Elin Reynolds Work Phone: [facility] Work Phone: 08-07-2021 09:18-0400 Respiratory rate 16 /min Dr. Elin Reynolds Work Phone: [facility] Work Phone: 08-07-2021 09:18-0400 SaO2% (BldA) [Mass fraction] 97 % Dr. Elin Reynolds Work Phone: [facility] Work Phone: 08-07-2021 09:18-0400 Systolic blood pressure 152 mm[Hg] Dr. Elin Reynolds Work Phone: [facility] Work Phone: 07-23-2021 09:10-0400 Body mass index (BMI) [Ratio] 35.5 kg/m2 Dr. Elin Reynolds Work Phone: [facility] Work Phone: 07-23-2021 09:10-0400 Body temperature 97.1 [degF] Dr. Elin Reynolds Work Phone: [facility] Work Phone: 07-23-2021 09:10-0400 Body weight 93.[address] Elin Reynolds Work Phone: [facility] Work Phone: 07-23-2021 09:10-0400 Diastolic blood pressure 74 mm[Hg] Dr. Elin Reynolds Work Phone: [facility] Work Phone: 07-23-2021 09:10-0400 Heart rate 86 /min Dr. Elin Reynolds Work Phone: [facility] Work Phone: 07-23-2021 09:10-0400 Respiratory rate 17 /min Dr. Elin Reynolds Work Phone: [facility] Work Phone: 07-23-2021 09:10-0400 SaO2% (BldA) [Mass fraction] 97 % Dr. Elin Reynolds Work Phone: [facility] Work Phone: 07-23-2021 09:10-0400 Systolic blood pressure 133 mm[Hg] Dr. Elin Reynolds Work Phone: [facility] Work Phone: 05-29-2021 09:53-0400 Body mass index (BMI) [Ratio] 35.2 kg/m2 Dr. Elin Reynolds Work Phone: [facility] Work Phone: 05-29-2021 09:53-0400 Body weight 92.[address] Elin Reynolds Work Phone: [facility] Work Phone: 05-29-2021 09:53-0400 Diastolic blood pressure 76 mm[Hg] Dr. Elin Reynolds Work Phone: [facility] Work Phone: 05-29-2021 09:53-0400 Heart rate 88 /min Dr. Elin Reynolds Work Phone: [facility] Work Phone: 05-29-2021 09:53-0400 Respiratory rate 18 /min Dr. Elin Reynolds Work Phone: [facility] Work Phone: 05-29-2021 09:53-0400 SaO2% (BldA) [Mass fraction] 96 % Dr. Elin Reynolds Work Phone: [facility] Work Phone: 05-29-2021 09:53-0400 Systolic blood pressure 112 mm[Hg] Dr. Elin Reynolds Work Phone: [facility] Work Phone: 05-28-2021 09:06-0400 Body temperature 97.8 [degF] Dr. Elin Reynolds Work Phone: [facility] Work Phone: 05-28-2021 09:06-0400 Diastolic blood pressure 73 mm[Hg] Dr. Elin Reynolds Work Phone: [facility] Work Phone: 05-28-2021 09:06-0400 Heart rate 92 /min Dr. Elin Reynolds Work Phone: [facility] Work Phone: 05-28-2021 09:06-0400 Respiratory rate 16 /min Dr. Elin Reynolds Work Phone: [facility] Work Phone: 05-28-2021 09:06-0400 SaO2% (BldA) [Mass fraction] 96 % Dr. Elin Reynolds Work Phone: [facility] Work Phone: 05-28-2021 09:06-0400 Systolic blood pressure 129 mm[Hg] Dr. Elin Reynolds Work Phone: [facility] Work Phone: 05-06-2021 14:05-0400 Body height 162.56 cm Savi Cabrera [facility]; [facility] Work Phone: 05-06-2021 14:05-0400 Body mass index (BMI) [Ratio] 33.56 kg/m2 Savi Resendiz LPN [facility]; [facility] Work Phone: 05-06-2021 14:05-0400 Body surface area Derived from formula 1.94 m2 Savi Resendiz LPN [facility]; [facility] Work Phone: 05-06-2021 14:05-0400 Body temperature 97.3 [degF] Savi Resendiz LPN [facility]; [facility] Work Phone: 05-06-2021 14:05-0400 Body weight 88.68 kg Savi Resendiz LPN [facility]; [facility] Work Phone: 05-06-2021 14:05-0400 Diastolic blood pressure 78 mm[Hg] Savi Resendiz LPN [facility]; [facility] Work Phone: 05-06-2021 14:05-0400 Heart rate 101 /min Savi Resendiz LPN [facility]; [facility] Work Phone: 05-06-2021 14:05-0400 Respiratory rate 16 /min Savi Resendiz LPN [facility]; [facility] Work Phone: 05-06-2021 14:05-0400 SaO2% (BldA) [Mass fraction] 97 % Savishamar Resendiz MILLA [facility]; [facility] Work Phone: 05-06-2021 14:05-0400 Systolic blood pressure 140 mm[Hg] Savi Martín MILLA [facility]; [facility] Work Phone: 12-28-2020 11:39-0500 Body height 162.56 cm Alayna Kearns MA [facility]; [facility] Work Phone: 12-28-2020 11:39-0500 Body mass index (BMI) [Ratio] 33.56 kg/m2 Alayna Kearns MA [facility]; [facility] Work Phone: 12-28-2020 11:39-0500 Body surface area Derived from formula 1.94 m2 Alayna Kearns MA [facility]; [facility] Work Phone: 12-28-2020 11:39-0500 Body temperature 97.1 [degF] Alayna Kearns MA [facility]; [facility] Work Phone: 12-28-2020 11:39-0500 Body weight 88.68 kg Alayna Kearns MA [facility]; [facility] Work Phone: 12-28-2020 11:39-0500 Diastolic blood pressure 78 mm[Hg] Alayna Kearns MA [facility]; [facility] Work Phone: 12-28-2020 11:39-0500 Heart rate 100 /min Alayna Kearns MA [facility]; [facility] Work Phone: 12-28-2020 11:39-0500 Respiratory rate 17 /min Alayna Kearns MA [facility]; [facility] Work Phone: 12-28-2020 11:39-0500 SaO2% (BldA) [Mass fraction] 97 % Alayna Kearns MA [facility]; [facility] Work Phone: 12-28-2020 11:39-0500 Systolic blood pressure 114 mm[Hg] Alayna Kearns MA [facility]; [facility] Work Phone: 11-01-2020 11:43-0400 Body height 162.56 cm Caterina Slarb [employer] [facility] Work Phone: 11-01-2020 11:43-0400 Body mass index (BMI) [Ratio] 34.42 kg/m2 Caterina Slarb [employer]IST [facility]; [facility] Work Phone: 11-01-2020 11:43-0400 Body surface area Derived from formula 1.96 m2 Caterina Slarb [employer]IST [facility]; [facility] Work Phone: 11-01-2020 11:43-0400 Body temperature 98.1 [degF] Caterina Slarb [employer] SPECIALIST [facility]; [facility] Work Phone: 11-01-2020 11:43-0400 Body weight 90.95 kg Caterina Slarb [employer]IMIZATION SPECIALIST [facility]; [facility] Work Phone: 11-01-2020 11:43-0400 Diastolic blood pressure 78 mm[Hg] Caterina Slarb [employer]IZ[employer] SPECIALIST [facility]; [facility] Work Phone: 11-01-2020 11:43-0400 Heart rate 74 /min Caterina Slarb [employer]IZATION SPECIALIST [facility]; [facility] Work Phone: 11-01-2020 11:43-0400 Respiratory rate 16 /min Caterina Slarb [employer]IMIZATION SPECIALIST [facility]; [facility] Work Phone: 11-01-2020 11:43-0400 SaO2% (BldA) [Mass fraction] 96 % Caterina Slarb [employer]IZ[employer] SPECIALIST [facility]; [facility] Work Phone: 11-01-2020 11:43-0400 Systolic blood pressure 118 mm[Hg] Caterina Slarb [employer]IMIZATION SPECIALIST [facility]; [facility] Work Phone: 08-09-2020 13:58-0400 Body height 162.56 cm Bhavana Spears CMA [facility]; [facility] Work Phone: 08-09-2020 13:58-0400 Body mass index (BMI) [Ratio] 35.6 kg/m2 Bhavana Spears CMA [facility]; [facility] Work Phone: 08-09-2020 13:58-0400 Body surface area Derived from formula 1.99 m2 Bhavana Spears CMA [facility]; [facility] Work Phone: 08-09-2020 13:58-0400 Body temperature 97.1 [degF] Bhavana Spears CMA [facility]; [facility] Work Phone: Comment on above: Method: Infrared 08-09-2020 13:58-0400 Body weight 94.07 kg Bhavana Spears CMA [facility]; [facility] Work Phone: 08-09-2020 13:58-0400 Diastolic blood pressure 58 mm[Hg] Bhavana Spears CMA [facility]; [facility] Work Phone: Comment on above: Patient Position: Sitting; Cuff Location : Left Arm; Cuff Size: Standard 08-09-2020 13:58-0400 Heart rate 101 /min Bhavana Spears CMA [facility]; [facility] Work Phone: Comment on above: Pattern: Regular 08-09-2020 13:58-0400 Respiratory rate 18 /min Bhavana Spears CMA [facility]; [facility] Work Phone: Comment on above: Pattern: Unlabored 08-09-2020 13:58-0400 SaO2% (BldA) [Mass fraction] 93 % Bhavana Spears CMA [facility]; [facility] Work Phone: Comment on above: Room air 08-09-2020 13:58-0400 Systolic blood pressure 98 mm[Hg] Bhavana Spears CMA [facility]; [facility] Work Phone: Comment on above: Patient Position: Sitting; Cuff Location : Left Arm; Cuff Size: Standard 08-06-2020 08:43-0400 Body height 162.56 cm Neida Lopez [facility] Work Phone: 08-06-2020 08:43-0400 Body mass index (BMI) [Ratio] 37.68 kg/m2 Neida Lopez [employer]IST [facility]; [facility] Work Phone: 08-06-2020 08:43-0400 Body mass index (BMI) [Ratio] 35.6 kg/m2 Caterina Slarb [employer]IMIZATION SPECIALIST [facility]; [facility] Work Phone: 08-06-2020 08:43-0400 Body surface area Derived from formula 2.04 m2 Neida Cross [employer]IST [facility]; [facility] Work Phone: 08-06-2020 08:43-0400 Body surface area Derived from formula 1.99 m2 Caterina Slarb [employer]IMIZATION SPECIALIST [facility]; [facility] Work Phone: 08-06-2020 08:43-0400 Body temperature 98.1 [degF] Caterina Slarb [employer]IZATION SPECIALIST [facility]; [facility] Work Phone: 08-06-2020 08:43-0400 Body weight 99.57 kg Neida Lopez [employer]IZATION SPECIALIST [facility]; [facility] Work Phone: 08-06-2020 08:43-0400 Body weight 94.07 kg Caterina Slarb [employer]IMIZATION SPECIALIST [facility]; [facility] Work Phone: 08-06-2020 08:43-0400 Diastolic blood pressure 82 mm[Hg] Caterina Slarb [employer]IZATION SPECIALIST [facility]; [facility] Work Phone: Comment on above: Patient Position: Sitting; Cuff Location : Left Arm; Cuff Size: Standard 08-06-2020 08:43-0400 Heart rate 91 /min Caterina Slarb [employer]IZATION SPECIALIST [facility]; [facility] Work Phone: Comment on above: Pattern: Regular 08-06-2020 08:43-0400 Respiratory rate 16 /min Caterina Slarb [employer]IZATION SPECIALIST [facility]; [facility] Work Phone: Comment on above: Pattern: Unlabored 08-06-2020 08:43-0400 SaO2% (BldA) [Mass fraction] 93 % Caterina Oneil [facility] Work Phone: Comment on above: Room air 08-06-2020 08:43-0400 Systolic blood pressure 124 mm[Hg] Caterina Oneil [facility] Work Phone: Comment on above: Patient Position: Sitting; Cuff Location : Left Arm; Cuff Size: Standard 07-09-2020 09:13-0400 Body height 162.56 cm Bhavana Spears [facility] Work Phone: Comment on above: went up to 97 after a few seconds pt did not seem SOB and has asthma 07-09-2020 09:13-0400 Body mass index (BMI) [Ratio] 37.68 kg/m2 Bhavana Spears [facility] Work Phone: Comment on above: went up to 97 after a few seconds pt did not seem SOB and has asthma 07-09-2020 09:13-0400 Body surface area Derived from formula 2.04 m2 Bhavana Spears [facility] Work Phone: Comment on above: went up to 97 after a few seconds pt did not seem SOB and has asthma 07-09-2020 09:13-0400 Body temperature 97.1 [degF] Bhavana Spears [facility]; [facility] Work Phone: Comment on above: Method: Infrared went up to 97 after a few seconds pt did not seem SOB and has asthma 07-09-2020 09:13-0400 Body weight 99.57 kg Bhavana Spears [facility] Work Phone: Comment on above: went up to 97 after a few seconds pt did not seem SOB and has asthma 07-09-2020 09:13-0400 Diastolic blood pressure 78 mm[Hg] Bhavana Spears [facility] Work Phone: Comment on above: Patient Position: Sitting; Cuff Location : Left Arm; Cuff Size: Standard went up to 97 after a few seconds pt did not seem SOB and has asthma 07-09-2020 09:13-0400 Heart rate 105 /min Bhavana Spears [facility] Work Phone: Comment on above: Pattern: Regular went up to 97 after a few seconds pt did not seem SOB and has asthma 07-09-2020 09:13-0400 Respiratory rate 16 /min Bhavana Spears [facility]; [facility] Work Phone: Comment on above: Pattern: Unlabored went up to 97 after a few seconds pt did not seem SOB and has asthma 07-09-2020 09:13-0400 SaO2% (BldA) [Mass fraction] 93 % Bhavana Spears [facility] Work Phone: Comment on above: Room air went up to 97 after a few seconds pt did not seem SOB and has asthma 07-09-2020 09:13-0400 Systolic blood pressure 126 mm[Hg] Bhavana Spears [facility] Work Phone: Comment on above: Patient Position: Sitting; Cuff Location : Left Arm; Cuff Size: Standard went up to 97 after a few seconds pt did not seem SOB and has asthma 07-08-2019 14:05-0400 BMI (Body Mass Index) 38.02 kg/m2 Rebecca Pham RN [facility] Work Phone: 07-08-2019 14:05-0400 Body weight 100.47 kg Rebecca Pham RN [facility] Work Phone: 07-08-2019 14:05-0400 BP Diastolic 75 mm[Hg] Rebecca Pham RN [facility] Work Phone: Comment on above: Patient Position: Sitting; Cuff Location : Left Arm; Cuff Size: Standard 07-08-2019 14:05-0400 BP Systolic 122 mm[Hg] Rebecca Pham RN [facility] Work Phone: Comment on above: Patient Position: Sitting; Cuff Location : Left Arm; Cuff Size: Standard 07-08-2019 14:05-0400 BSA (Body Surface Area) 2.04 m2 Rebecca Pham RN [facility] Work Phone: 07-08-2019 14:05-0400 Height 162.56 cm Rebecca Pham RN [facility] Work Phone: 07-08-2019 14:05-0400 Pulse Oximetry 96 % lEin Reynolds [facility] Work Phone: Comment on above: Room air 07-08-2019 14:05-0400 SaO2% (BldA) [Mass fraction] 96 % Rebecca Pham RN [facility]; [facility] Work Phone: Comment on above: Room air 04-28-2019 11:36-0400 BMI (Body Mass Index) 37.59 kg/m2 Rebecca Pham RN [facility] Work Phone: 04-28-2019 11:36-0400 Body weight 99.34 kg Rebecca Pham RN [facility] Work Phone: 04-28-2019 11:36-0400 BP Diastolic 78 mm[Hg] Rebecca Pham RN [facility] Work Phone: Comment on above: Patient Position: Sitting; Cuff Location : Left Arm; Cuff Size: Large 04-28-2019 11:36-0400 BP Systolic 120 mm[Hg] Rebecca Pham RN [facility] Work Phone: Comment on above: Patient Position: Sitting; Cuff Location : Left Arm; Cuff Size: Large 04-28-2019 11:36-0400 BSA (Body Surface Area) 2.03 m2 Rebecca Pham RN [facility] Work Phone: 04-28-2019 11:36-0400 Height 162.56 cm Rebecca Pham RN [facility] Work Phone: 04-28-2019 11:36-0400 Pulse (Heart Rate) 74 /min Rebecca Pham RN [facility] Work Phone: Comment on above: Pattern: Regular 04-28-2019 11:36-0400 Pulse Oximetry 98 % Elin Reynolds [facility] Work Phone: Comment on above: Room air 04-28-2019 11:36-0400 Respiratory Rate 18 /min Rebecca Pham RN [facility] Work Phone: Comment on above: Pattern: Unlabored 04-28-2019 11:36-0400 SaO2% (BldA) [Mass fraction] 98 % Rebecca Pham RN [facility]; [facility] Work Phone: Comment on above: Room air 03-10-2019 10:09-0500 BMI (Body Mass Index) 37.59 kg/m2 Bhavana Spears [facility] Work Phone: 03-10-2019 10:09-0500 Body Temperature 96.9 [degF] Bhavana Spears [employer] [facility] Work Phone: Comment on above: Method: Temporal 03-10-2019 10:09-0500 Body weight 99.34 kg Bhavana Spears [facility] Work Phone: 03-10-2019 10:09-0500 BP Diastolic 86 mm[Hg] Bhavana Spears [facility] Work Phone: Comment on above: Patient Position: Sitting; Cuff Location : Left Arm; Cuff Size: Standard 03-10-2019 10:09-0500 BP Systolic 118 mm[Hg] Bhavana Spears [facility] Work Phone: Comment on above: Patient Position: Sitting; Cuff Location : Left Arm; Cuff Size: Standard 03-10-2019 10:09-0500 BSA (Body Surface Area) 2.03 m2 Bhavana Spears [facility] Work Phone: 03-10-2019 10:09-0500 Height 162.56 cm Bhavana Spears [facility] Work Phone: 03-10-2019 10:09-0500 Pulse (Heart Rate) 91 /min Bhavana Spears [facility] Comprehens jeff Internal Medicine Work Phone: Comment on above: Pattern: Regular 03-10-2019 10:09-0500 Pulse Oximetry 97 % Elin Reynolds [facility] Work Phone: Comment on above: Room air 03-10-2019 10:09-0500 Respiratory Rate 16 /min Bhavana Spears [employer] Comprehensiv e Internal Medicine Work Phone: Comment on above: Pattern: Unlabored 03-10-2019 10:09-0500 SaO2% (BldA) [Mass fraction] 97 % Bhavana Spears [employer] [facility]; [facility] Work Phone: Comment on above: Room air 10-25-2018 10:07-0400 BMI (Body Mass Index) 36.73 kg/m2 Rebecca Pham RN [facility] Work Phone: 10-25-2018 10:07-0400 Body weight 97.07 kg Rebecca Pham RN [facility] Work Phone: 10-25-2018 10:07-0400 BP Diastolic 88 mm[Hg] Rebecca Pham RN [facility] Work Phone: Comment on above: Patient Position: Sitting; Cuff Location : Left Arm; Cuff Size: Standard 10-25-2018 10:07-0400 BP Systolic 128 mm[Hg] Rebecca Pham RN [facility] Work Phone: Comment on above: Patient Position: Sitting; Cuff Location : Left Arm; Cuff Size: Standard 10-25-2018 10:07-0400 BSA (Body Surface Area) 2.01 m2 Rebecca Pham RN [facility] Work Phone: 10-25-2018 10:07-0400 Height 162.56 cm Rebecca Pham RN [facility] Work Phone: 10-25-2018 10:07-0400 Pulse (Heart Rate) 93 /min Rebecca Pham RN Comprehens jeff [facility] Medicine Work Phone: Comment on above: Pattern: Regular 10-25-2018 10:07-0400 Pulse Oximetry 98 % Elin Reynolds [facility] Work Phone: Comment on above: Room air 10-25-2018 10:07-0400 Respiratory Rate 18 /min Rebecca Pham RN Comprehensiv e [facility] Work Phone: Comment on above: Pattern: Unlabored 10-25-2018 10:07-0400 SaO2% (BldA) [Mass fraction] 98 % Rebecca Pham RN [facility]; [facility] Work Phone: Comment on above: Room air 09-27-2018 13:15-0400 BMI (Body Mass Index) 36.05 kg/m2 Caterina Oneil [employer]IST [facility] Work Phone: 09-27-2018 13:15-0400 Body Temperature 99.1 [degF] Caterina Slarb [employer]IST [facility] Work Phone: 09-27-2018 13:15-0400 Body weight 95.26 kg Caterina Slarb OPTIMIZATION SPECIALIST [facility] Work Phone: 09-27-2018 13:15-0400 BP Diastolic 82 mm[Hg] Caterina Slarb OPTIMIZATION SPECIALIST [facility] Work Phone: Comment on above: Patient Position: Sitting; Cuff Location : Left Arm; Cuff Size: Standard 09-27-2018 13:15-0400 BP Systolic 122 mm[Hg] Caterina Slarb OPTIMIZATION SPECIALIST [facility] Work Phone: Comment on above: Patient Position: Sitting; Cuff Location : Left Arm; Cuff Size: Standard 09-27-2018 13:15-0400 BSA (Body Surface Area) 2 m2 Caterina Slarb OPTIMIZATION SPECIALIST [facility] Work Phone: 09-27-2018 13:15-0400 Height 162.56 cm Caterina Slarb OPTIMIZATION SPECIALIST [facility] Work Phone: 09-27-2018 13:15-0400 Pulse (Heart Rate) 81 /min Caterina Christopherrb OPTIMIZATION SPECIALIST Comprehensiv e Internal Medicine Work Phone: Comment on above: Pattern: Regular 09-27-2018 13:15-0400 Pulse Oximetry 96 % Elin Reynolds [facility] Work Phone: Comment on above: Room air 09-27-2018 13:15-0400 Respiratory Rate 18 /min Caterina Slarb OPTIMIZATION SPECIALIST [facility] Work Phone: Comment on above: Pattern: Unlabored 09-27-2018 13:15-0400 SaO2% (BldA) [Mass fraction] 96 % Caterina Whitekrystyna DEANN [facility]; [facility] Work Phone: Comment on above: Room air 07-30-2018 09:03-0400 BMI (Body Mass Index) 36.22 kg/m2 Amairani Bravo RN [facility] Work Phone: 07-30-2018 09:03-0400 Body weight 95.71 kg Amairani Bravo RN [facility] Work Phone: 07-30-2018 09:03-0400 BP Diastolic 70 mm[Hg] Amairani Bravo RN [facility] Work Phone: Comment on above: Patient Position: Sitting; Cuff Location : Left Arm; Cuff Size: Standard 07-30-2018 09:03-0400 BP Systolic 124 mm[Hg] Amairani Bravo RN [facility] Work Phone: Comment on above: Patient Position: Sitting; Cuff Location : Left Arm; Cuff Size: Standard 07-30-2018 09:03-0400 BSA (Body Surface Area) 2 m2 Amairani Bravo RN [facility] Work Phone: 07-30-2018 09:03-0400 Height 162.56 cm Amairani Bravo RN [facility] Work Phone: 07-30-2018 09:03-0400 Pulse (Heart Rate) 66 /min Amairani Bravo RN [facility] Work Phone: Comment on above: Pattern: Regular 07-30-2018 09:03-0400 Pulse Oximetry 97 % Elin Reynolds [facility] Work Phone: Comment on above: Room air 07-30-2018 09:03-0400 Respiratory Rate 16 /min Amairani Bravo RN [facility] Work Phone: Comment on above: Pattern: Unlabored 07-30-2018 09:03-0400 SaO2% (BldA) [Mass fraction] 97 % Amairani Bravo RN [facility]; [facility] Work Phone: Comment on above: Room air 07-30-2018 09:03-0400 Weight 95.71 kg Elin Reynolds [facility] Work Phone: 06-21-2018 09:53-0400 BMI (Body Mass Index) 36.9 kg/m2 Rebecca Pham RN [facility] Work Phone: 06-21-2018 09:53-0400 Body weight 97.52 kg Rebecca Pham RN [facility] Work Phone: 06-21-2018 09:53-0400 BP Diastolic 88 mm[Hg] Rebecca Pham RN [facility] Work Phone: Comment on above: Patient Position: Sitting; Cuff Location : Left Arm; Cuff Size: Large 06-21-2018 09:53-0400 BP Systolic 138 mm[Hg] Rebecca Pham RN [facility] Work Phone: Comment on above: Patient Position: Sitting; Cuff Location : Left Arm; Cuff Size: Large 06-21-2018 09:53-0400 BSA (Body Surface Area) 2.02 m2 Rebecca Pham RN [facility] Work Phone: 06-21-2018 09:53-0400 Height 162.56 cm Rebecca Pham RN [facility] Work Phone: 06-21-2018 09:53-0400 Pulse (Heart Rate) 99 /min Rebecca Pham RN Comprehens [facility] Internal Medicine Work Phone: Comment on above: Pattern: Regular 06-21-2018 09:53-0400 Pulse Oximetry 97 % Elin Reynolds [facility] Work Phone: Comment on above: Room air 06-21-2018 09:53-0400 Respiratory Rate 18 /min Rebecca Pham RN Comprehensiv e Internal Medicine Work Phone: Comment on above: Pattern: Unlabored 06-21-2018 09:53-0400 SaO2% (BldA) [Mass fraction] 97 % Rebecca Pham RN [facility]; [facility] Work Phone: Comment on above: Room air 06-21-2018 09:53-0400 Weight 97.52 kg Elin Reynolds [facility] Work Phone: 05-10-2018 11:15-0400 BMI (Body Mass Index) 35.19 kg/m2 Warner Byrd [employer]IMIZATION SPECIALIST [facility] Work Phone: 05-10-2018 11:15-0400 Body Temperature 98 [degF] Warner Byrd OPTIMIZATION SPECIALIST [facility] Work Phone: Comment on above: Method: Temporal 05-10-2018 11:15-0400 Body weight 92.99 kg Warner Byrd OPTIMIZATION SPECIALIST [facility] Work Phone: 05-10-2018 11:15-0400 BP Diastolic 82 mm[Hg] Warner Byrd OPTIMIZATION SPECIALIST [facility] Work Phone: Comment on above: Patient Position: Sitting; Cuff Location : Left Arm; Cuff Size: Standard 05-10-2018 11:15-0400 BP Systolic 162 mm[Hg] Warner Byrd OPTIMIZATION SPECIALIST [facility] Internal Medicine Work Phone: Comment on above: Patient Position: Sitting; Cuff Location : Left Arm; Cuff Size: Standard 05-10-2018 11:15-0400 BSA (Body Surface Area) 1.98 m2 Warnre Byrd OPTIMIZATION SPECIALIST [facility] Work Phone: 05-10-2018 11:15-0400 Height 162.56 cm Warner Byrd [facility] Work Phone: 05-10-2018 11:15-0400 Pulse (Heart Rate) 101 /min Warner Byrd OPTIMIZATION SPECIALIST Comprehens e Internal Medicine Work Phone: Comment on above: Pattern: Regular 05-10-2018 11:15-0400 Pulse Oximetry 97 % Elin Reynolds [facility] Internal Medicine Work Phone: Comment on above: Room air 05-10-2018 11:15-0400 Respiratory Rate 17 /min Warner Byrd OPTIMIZATION SPECIALIST [facility] Work Phone: Comment on above: Pattern: Unlabored 05-10-2018 11:15-0400 SaO2% (BldA) [Mass fraction] 97 % Warner Byrd [facility] Internal Medicine; [facility] Work Phone: Comment on above: Room air 05-10-2018 11:15-0400 Weight 92.99 kg Elin Reynolds [facility] Internal Medicine Work Phone: 12-14-2017 09:49-0400 BMI (Body Mass Index) 35.19 kg/m2 Rebecca Pham RN [facility] Work Phone: 12-14-2017 09:49-0400 Body weight 92.99 kg Rebecca Pham RN [facility] Work Phone: 12-14-2017 09:49-0400 BP Diastolic 72 mm[Hg] Rebecca Pham RN [facility] Work Phone: Comment on above: Patient Position: Sitting; Cuff Location : Left Arm; Cuff Size: Large 12-14-2017 09:49-0400 BP Systolic 136 mm[Hg] Rebecca Pham RN [facility] Work Phone: Comment on above: Patient Position: Sitting; Cuff Location : Left Arm; Cuff Size: Large 12-14-2017 09:49-0400 BSA (Body Surface Area) 1.98 m2 Rebecca Pham RN [facility] Work Phone: 12-14-2017 09:49-0400 Height 162.56 cm Rebecca Pham RN [facility] Work Phone: 12-14-2017 09:49-0400 Pulse (Heart Rate) 90 /min Rebecca Pham RN Comprehens jeff Internal Medicine Work Phone: Comment on above: Pattern: Regular 12-14-2017 09:49-0400 Pulse Oximetry 97 % Elin Reynolds [facility] Work Phone: Comment on above: Room air 12-14-2017 09:49-0400 Respiratory Rate 18 /min Rebecca Pham RN Comprehensiv e Internal Medicine Work Phone: Comment on above: Pattern: Unlabored 12-14-2017 09:49-0400 SaO2% (BldA) [Mass fraction] 97 % Rebecca Pham RN [facility]; [facility] Work Phone: Comment on above: Room air 12-14-2017 09:49-0400 Weight 92.99 kg Elin Reynolds [facility] Work Phone: 06-23-2017 08:09-0400 BMI (Body Mass Index) 34.03 kg/m2 Warner Byrd LPN [facility] Work Phone: 06-23-2017 08:09-0400 Body Temperature 98.4 [degF] Warner Byrd MILLA [facility] Internal Medicine Work Phone: 06-23-2017 08:09-0400 Body weight 89.93 kg Warner Byrd [facility] Internal Medicine Work Phone: 06-23-2017 08:09-0400 BP Diastolic 78 mm[Hg] Warner Byrd OPTIMIZATION SPECIALIST [facility] Work Phone: Comment on above: Patient Position: Sitting; Cuff Location : Left Arm; Cuff Size: Standard 06-23-2017 08:09-0400 BP Systolic 126 mm[Hg] Warner Carson OPTIMIZATION SPECIALIST [facility] Internal Medicine Work Phone: Comment on above: Patient Position: Sitting; Cuff Location : Left Arm; Cuff Size: Standard 06-23-2017 08:09-0400 BSA (Body Surface Area) 1.95 m2 Warner Byrd OPTIMIZATION SPECIALIST [facility] Work Phone: 06-23-2017 08:09-0400 Height 162.56 cm Warner Carson OPTIMIZATION SPECIALIST [facility] Internal Medicine Work Phone: 06-23-2017 08:09-0400 Pulse (Heart Rate) 75 /min Warner Byrd MILLA Comprehens e Internal Medicine Work Phone: Comment on above: Pattern: Regular 06-23-2017 08:09-0400 Pulse Oximetry 95 % Elin Reynolds [facility] Internal Medicine Work Phone: Comment on above: Room air 06-23-2017 08:09-0400 Respiratory Rate 18 /min aWrner Byrd OPTIMIZATION SPECIALIST [facility] Work Phone: Comment on above: Pattern: Unlabored 06-23-2017 08:09-0400 SaO2% (BldA) [Mass fraction] 95 % [facility] Work Phone: Comment on above: Room air 06-23-2017 08:09-0400 Weight 89.93 kg Elin Reynolds [facility] Internal Medicine Work Phone: 06-08-2017 09:05-0400 BMI (Body Mass Index) 34.03 kg/m2 Rebecca Pham RN [facility] Work Phone: 06-08-2017 09:05-0400 Body weight 89.93 kg Rebecca Pham RN [facility] Work Phone: 06-08-2017 09:05-0400 BP Diastolic 78 mm[Hg] Rebecca Pham RN [facility] Work Phone: Comment on above: Patient Position: Sitting; Cuff Location : Left Arm; Cuff Size: Large 06-08-2017 09:05-0400 BP Systolic 128 mm[Hg] Rebecca Pham RN [facility] Work Phone: Comment on above: Patient Position: Sitting; Cuff Location : Left Arm; Cuff Size: Large 06-08-2017 09:05-0400 BSA (Body Surface Area) 1.95 m2 Rebecca Pham RN [facility] Work Phone: 06-08-2017 09:05-0400 Height 162.56 cm Rebecca Pham RN [facility] Work Phone: 06-08-2017 09:05-0400 Pulse (Heart Rate) 75 /min Rebecca Pham RN Comprehens jeff Internal Medicine Work Phone: Comment on above: Pattern: Regular 06-08-2017 09:05-0400 Pulse Oximetry 98 % Elin Yessi [facility] Work Phone: Comment on above: Room air 06-08-2017 09:05-0400 Respiratory Rate 18 /min Rebecca Pham RN Comprehensiv e Internal Medicine Work Phone: Comment on above: Pattern: Unlabored 06-08-2017 09:05-0400 SaO2% (BldA) [Mass fraction] 98 % Rebecca Pham RN [facility]; [facility] Work Phone: Comment on above: Room air 06-08-2017 09:05-0400 Weight 89.93 kg Elin Reynolds [facility] Work Phone: 04-28-2017 10:45-0400 BMI (Body Mass Index) 33.99 kg/m2 Rebecca Pham RN [facility] Work Phone: 04-28-2017 10:45-0400 Body weight 89.81 kg Rebecca Pham RN [facility] Work Phone: 04-28-2017 10:45-0400 BP Diastolic 62 mm[Hg] Rebecca Pham RN [facility] Work Phone: Comment on above: Patient Position: Sitting; Cuff Location : Left Arm; Cuff Size: Large 04-28-2017 10:45-0400 BP Systolic 128 mm[Hg] Rebecca Pham RN [facility] Work Phone: Comment on above: Patient Position: Sitting; Cuff Location : Left Arm; Cuff Size: Large 04-28-2017 10:45-0400 BSA (Body Surface Area) 1.95 m2 Rebecca Pham RN [facility] Work Phone: 04-28-2017 10:45-0400 Height 162.56 cm Rebecca Pham RN [facility] Work Phone: 04-28-2017 10:45-0400 Pulse (Heart Rate) 79 /min Rebecca Pham RN Comprehens jeff Internal Medicine Work Phone: Comment on above: Pattern: Regular 04-28-2017 10:45-0400 Pulse Oximetry 97 % Elin Reynolds [facility] Work Phone: Comment on above: Room air 04-28-2017 10:45-0400 Respiratory Rate 18 /min Rebecca Pham RN Comprehensiv e Internal Medicine Work Phone: Comment on above: Pattern: Unlabored 04-28-2017 10:45-0400 SaO2% (BldA) [Mass fraction] 97 % Rebecca Pham RN [facility]; [facility] Work Phone: Comment on above: Room air 04-28-2017 10:45-0400 Weight 89.81 kg Elin Reynolds [facility] Work Phone: 04-16-2017 09:27-0500 BMI (Body Mass Index) 34.22 kg/m2 Rebecca Pham RN [facility] Work Phone: 04-16-2017 09:27-0500 Body weight 90.44 kg Rebecca Pham RN [facility] Work Phone: 04-16-2017 09:27-0500 BP Diastolic 64 mm[Hg] Rebecca Pham RN [facility] Work Phone: Comment on above: Patient Position: Sitting; Cuff Location : Left Arm; Cuff Size: Large 04-16-2017 09:27-0500 BP Systolic 120 mm[Hg] Rebecca Pham RN [facility] Work Phone: Comment on above: Patient Position: Sitting; Cuff Location : Left Arm; Cuff Size: Large 04-16-2017 09:27-0500 BSA (Body Surface Area) 1.95 m2 Rebecca Pham RN [facility] Work Phone: 04-16-2017 09:27-0500 Height 162.56 cm Rebecca Pham RN [facility] Work Phone: 04-16-2017 09:27-0500 Pulse (Heart Rate) 88 /min Rebecca Pham RN Comprehens jeff Internal Medicine Work Phone: Comment on above: Pattern: Regular 04-16-2017 09:27-0500 Pulse Oximetry 98 % Elin Reynolds [facility] Work Phone: Comment on above: Room air 04-16-2017 09:27-0500 Respiratory Rate 18 /min Rebecca Pham RN Comprehensiv e Internal Medicine Work Phone: Comment on above: Pattern: Unlabored 04-16-2017 09:27-0500 SaO2% (BldA) [Mass fraction] 98 % Rebecca Pham RN [facility]; [facility] Work Phone: Comment on above: Room air 04-16-2017 09:27-0500 Weight 90.44 kg Elin Reynolds [facility] Work Phone: 01-15-2017 10:48-0500 BMI (Body Mass Index) 35.19 kg/m2 Rebecca Pham RN [facility] Work Phone: 01-15-2017 10:48-0500 Body Temperature 97.8 [degF] Rebecca Pham RN Comprehensiv e Internal Medicine Work Phone: Comment on above: Method: Temporal 01-15-2017 10:48-0500 Body weight 92.99 kg Rebecca Pham RN [facility] Work Phone: 01-15-2017 10:48-0500 BP Diastolic 78 mm[Hg] Rebecca Pham RN [facility] Work Phone: Comment on above: Patient Position: Sitting; Cuff Location : Left Arm; Cuff Size: Large 01-15-2017 10:48-0500 BP Systolic 118 mm[Hg] Rebecca Pham RN [facility] Work Phone: Comment on above: Patient Position: Sitting; Cuff Location : Left Arm; Cuff Size: Large 01-15-2017 10:48-0500 BSA (Body Surface Area) 1.98 m2 Rebecca Pham RN [facility] Work Phone: 01-15-2017 10:48-0500 Height 162.56 cm Rebecca Pham RN [facility] Work Phone: 01-15-2017 10:48-0500 Pulse (Heart Rate) 109 /min Rebecca Pham RN Comprehens jeff Internal Medicine Work Phone: Comment on above: Pattern: Regular 01-15-2017 10:48-0500 Pulse Oximetry 96 % Elin Reynolds [facility] Work Phone: Comment on above: Room air 01-15-2017 10:48-0500 Respiratory Rate 16 /min Rebecca Pham RN Comprehensiv e Internal Medicine Work Phone: Comment on above: Pattern: Unlabored 01-15-2017 10:48-0500 SaO2% (BldA) [Mass fraction] 96 % Rebecca Pham RN [facility]; [facility] Work Phone: Comment on above: Room air 01-15-2017 10:48-0500 Weight 92.99 kg Elin Reynolds [facility] Work Phone: 12-15-2016 09:49-0400 BMI (Body Mass Index) 35.38 kg/m2 Rebecca Pham RN [facility] Work Phone: 12-15-2016 09:49-0400 Body weight 93.5 kg Rebecca Pham RN [facility] Work Phone: 12-15-2016 09:49-0400 BP Diastolic 80 mm[Hg] Rebecca Pham RN [facility] Work Phone: Comment on above: Patient Position: Sitting; Cuff Location : Left Arm; Cuff Size: Large 12-15-2016 09:49-0400 BP Systolic 122 mm[Hg] Rebecca Pham RN [facility] Work Phone: Comment on above: Patient Position: Sitting; Cuff Location : Left Arm; Cuff Size: Large 12-15-2016 09:49-0400 BSA (Body Surface Area) 1.98 m2 Rebecca Pham RN [facility] Work Phone: 12-15-2016 09:49-0400 Height 162.56 cm Rebecca Pham RN [facility] Work Phone: 12-15-2016 09:49-0400 Pulse (Heart Rate) 99 /min Rebecca Pham RN Comprehens jeff Internal Medicine Work Phone: Comment on above: Pattern: Regular 12-15-2016 09:49-0400 Pulse Oximetry 98 % Elin Reynolds [facility] Work Phone: Comment on above: Room air 12-15-2016 09:49-0400 Respiratory Rate 18 /min Rebecca Pham RN Comprehensiv e Internal Medicine Work Phone: Comment on above: Pattern: Unlabored 12-15-2016 09:49-0400 SaO2% (BldA) [Mass fraction] 98 % Rebecca Pham RN [facility]; [facility] Work Phone: Comment on above: Room air 12-15-2016 09:49-0400 Weight 93.5 kg Elin Reynolds [facility] Work Phone: 11-14-2016 07:26-0400 BMI (Body Mass Index) 34.15 kg/m2 Chanell Billy [facility] Work Phone: 11-14-2016 07:26-0400 Body Temperature 97.5 [degF] Chanell Billy [facility] [place] Work Phone: 11-14-2016 07:26-0400 BP Diastolic 80 mm[Hg] Chanell Billy [facility] [place] Work Phone: 11-14-2016 07:26-0400 BP Systolic 130 mm[Hg] Chanell York [facility] [employer] Work Phone: 11-14-2016 07:26-0400 Height 162.56 cm Chanell York [facility] [employer] Work Phone: 11-14-2016 07:26-0400 Pulse (Heart Rate) 78 /min Chanell Programmr [facility] [employer] Work Phone: 11-14-2016 07:26-0400 Respiratory Rate 18 /min Chanell Programmr [facility] [employer] Work Phone: 11-14-2016 07:26-0400 Weight 90.27 kg Chanell Programmr [facility] [employer] Work Phone: 11-06-2016 06:24-0400 BMI (Body Mass Index) 35.53 kg/m2 Raquel Yensho OPTIMIZATION SPECIALIST [facility] [employer] Work Phone: 11-06-2016 06:24-0400 Body Temperature 97.6 [degF] Raquel Yensho OPTIMIZATION SPECIALIST [facility] Work Phone: 11-06-2016 06:24-0400 BP Diastolic 71 mm[Hg] Raquel Yensho OPTIMIZATION SPECIALIST [facility] Work Phone: 11-06-2016 06:24-0400 BP Systolic 188 mm[Hg] Raquel Yensho OPTIMIZATION SPECIALIST [facility] Work Phone: 11-06-2016 06:24-0400 Height 162.56 cm Raquel Yensho OPTIMIZATION SPECIALIST [facility] Work Phone: 11-06-2016 06:24-0400 Pulse (Heart Rate) 79 /min Raquel Yensho OPTIMIZATION SPECIALIST [facility] [employer] Work Phone: 11-06-2016 06:24-0400 Respiratory Rate 18 /min Raquel Yensho OPTIMIZATION SPECIALIST [facility] Work Phone: 11-06-2016 06:24-0400 Weight 93.9 kg Raquel Parham LPN [facility] Work Phone: 09-22-2016 10:07-0400 BMI (Body Mass Index) 35.18 kg/m2 Chanell Billy [facility] [employer] Work Phone: 09-22-2016 10:07-0400 Body Temperature 97.4 [degF] Chanell Billy [facility] [employer] Work Phone: 09-22-2016 10:07-0400 BP Diastolic 84 mm[Hg] Chanell Billy [facility] [employer] Work Phone: 09-22-2016 10:07-0400 BP Systolic 130 mm[Hg] Chanell Billy [facility] [employer] Work Phone: 09-22-2016 10:07-0400 Height 162.56 cm Chanelljarod Billy [facility] [employer] Work Phone: 09-22-2016 10:07-0400 Pulse (Heart Rate) 85 /min Chanell Billy [facility] [employer] Work Phone: 09-22-2016 10:07-0400 Respiratory Rate 18 /min Chanell Billy [facility] [employer] Work Phone: 09-22-2016 10:07-0400 Weight 92.99 kg Chanell Billy [facility] [employer] Work Phone: 09-15-2016 10:21-0400 BMI (Body Mass Index) 34.5 kg/m2 Chanell Sow LPN [facility] Work Phone: 09-15-2016 10:21-0400 Body Temperature 97.6 [degF] Chanell Sow LPN [facility] [employer] Work Phone: 09-15-2016 10:21-0400 BP Diastolic 74 mm[Hg] Chanell Sow OPTIMIZATION SPECIALIST [facility] [employer] Work Phone: 09-15-2016 10:21-0400 BP Systolic 115 mm[Hg] Chanell Magi OPTIMIZATION SPECIALIST [facility] [employer] Work Phone: 09-15-2016 10:21-0400 Height 162.56 cm Chanell Sow OPTIMIZATION SPECIALIST [facility] [employer] Work Phone: 09-15-2016 10:21-0400 Pulse (Heart Rate) 91 /min Chanell Sow LPN [facility] [employer] Work Phone: 09-15-2016 10:21-0400 Respiratory Rate 18 /min Chanell Magi OPTIMIZATION SPECIALIST [facility] [employer] Work Phone: 09-15-2016 10:21-0400 Weight 91.17 kg Chanell Sow LPN [facility] [employer] Work Phone: 09-12-2016 14:53-0400 BMI (Body Mass Index) 34.5 kg/m2 Amairani Bravo RN [facility] Work Phone: 09-12-2016 14:53-0400 Body Temperature 98 [degF] Amairani Bravo RN [facility] Work Phone: Comment on above: Method: Temporal 09-12-2016 14:53-0400 Body weight 91.17 kg Amairani Braov RN [facility] Work Phone: 09-12-2016 14:53-0400 BP Diastolic 80 mm[Hg] Amairani Bravo RN [facility] Work Phone: Comment on above: Patient Position: Sitting; Cuff Location : Left Arm; Cuff Size: Standard 09-12-2016 14:53-0400 BP Systolic 130 mm[Hg] Amairani Bravo RN [facility] Work Phone: Comment on above: Patient Position: Sitting; Cuff Location : Left Arm; Cuff Size: Standard 09-12-2016 14:53-0400 BSA (Body Surface Area) 1.96 m2 Amairani Bravo RN [facility] Work Phone: 09-12-2016 14:53-0400 Height 162.56 cm Amairani Bravo RN [facility] Work Phone: 09-12-2016 14:53-0400 Pulse (Heart Rate) 82 /min Amairani Bravo RN [facility] Work Phone: Comment on above: Pattern: Regular 09-12-2016 14:53-0400 Pulse Oximetry 96 % Elin Reynolds [facility] Work Phone: Comment on above: Room air 09-12-2016 14:53-0400 Respiratory Rate 17 /min Amairani Bravo RN [facility] Work Phone: Comment on above: Pattern: Unlabored 09-12-2016 14:53-0400 SaO2% (BldA) [Mass fraction] 96 % Amairani Bravo RN [facility]; [facility] Work Phone: Comment on above: Room air 09-12-2016 14:53-0400 Weight 91.17 kg Elin Reynolds [facility] Work Phone: 09-08-2016 16:09-0400 BMI (Body Mass Index) 34.42 kg/m2 Caterina Slarb OPTIMIZATION SPECIALIST [facility] Work Phone: 09-08-2016 16:09-0400 Body Temperature 97.2 [degF] Caterina Slarb OPTIMIZATION SPECIALIST [facility] Work Phone: 09-08-2016 16:09-0400 Body weight 90.95 kg Caterina Christopherrb OPTIMIZATION SPECIALIST [facility] Work Phone: 09-08-2016 16:09-0400 BP Diastolic 80 mm[Hg] Caterina Slarb OPTIMIZATION SPECIALIST [facility] Work Phone: Comment on above: Patient Position: Sitting; Cuff Location : Left Arm; Cuff Size: Standard 09-08-2016 16:09-0400 BP Systolic 132 mm[Hg] Caterina Slarb OPTIMIZATION SPECIALIST [facility] Work Phone: Comment on above: Patient Position: Sitting; Cuff Location : Left Arm; Cuff Size: Standard 09-08-2016 16:09-0400 BSA (Body Surface Area) 1.96 m2 Caterina Oneil LPN [facility] Work Phone: 09-08-2016 16:09-0400 Height 162.56 cm Caterina Oneil LPN [facility] Work Phone: 09-08-2016 16:09-0400 Pulse (Heart Rate) 88 /min Caterina Oneil LPN [facility] Work Phone: Comment on above: Pattern: Regular 09-08-2016 16:09-0400 Pulse Oximetry 96 % Elin Reynolds [facility] Work Phone: Comment on above: Room air 09-08-2016 16:09-0400 Respiratory Rate 16 /min Caterina Oneil LPN [facility] Work Phone: Comment on above: Pattern: Unlabored 09-08-2016 16:09-0400 SaO2% (BldA) [Mass fraction] 96 % Caterina Whiterb OPTIMIZATION SPECIALIST [facility]; [facility] Work Phone: Comment on above: Room air 09-08-2016 16:09-0400 Weight 90.95 kg Elin Reynolds [facility] Work Phone: 09-01-2016 11:01-0400 BMI (Body Mass Index) 34.42 kg/m2 Caterina Whiterb OPTIMIZATION SPECIALIST [facility] Work Phone: 09-01-2016 11:01-0400 Body Temperature 97.3 [degF] Caterina Whiterb OPTIMIZATION SPECIALIST [facility] Work Phone: 09-01-2016 11:01-0400 Body weight 90.95 kg Caterina Whiterb OPTIMIZATION SPECIALIST [facility] Work Phone: 09-01-2016 11:01-0400 BP Diastolic 74 mm[Hg] Caterina Slarb OPTIMIZATION SPECIALIST [facility] Work Phone: Comment on above: Patient Position: Sitting; Cuff Location : Left Arm; Cuff Size: Standard 09-01-2016 11:01-0400 BP Systolic 116 mm[Hg] Caterina Slarb OPTIMIZATION SPECIALIST [facility] Work Phone: Comment on above: Patient Position: Sitting; Cuff Location : Left Arm; Cuff Size: Standard 09-01-2016 11:01-0400 BSA (Body Surface Area) 1.96 m2 Caterina Oneil MILLA [facility] Work Phone: 09-01-2016 11:01-0400 Height 162.56 cm Caterina Oneil MILLA [facility] Work Phone: 09-01-2016 11:01-0400 Pulse (Heart Rate) 83 /min Caterina Oneil LPN [facility] Work Phone: Comment on above: Pattern: Regular 09-01-2016 11:01-0400 Pulse Oximetry 96 % Elin Arguelloon [facility] Work Phone: Comment on above: Room air 09-01-2016 11:01-0400 Respiratory Rate 16 /min Caterina Oneil MILLA [facility] Work Phone: Comment on above: Pattern: Unlabored 09-01-2016 11:01-0400 SaO2% (BldA) [Mass fraction] 96 % Caterina Whitekrystyna LOYOLA [facility]; [facility] Work Phone: Comment on above: Room air 09-01-2016 11:01-0400 Weight 90.95 kg Elin Arguelloon [facility] Work Phone: 08-25-2016 09:190400 BMI (Body Mass Index) 34.42 kg/m2 Rebecca Pham RN [facility] Work Phone: 08-25-2016 09:19-0400 Body Temperature 98.1 [degF] Rebecca Pham RN [facility] Work Phone: Comment on above: Method: Temporal 08-25-2016 09:190400 Body weight 90.95 kg Rebecca Pham RN [facility] Work Phone: 08-25-2016 09:190400 BP Diastolic 80 mm[Hg] Rebecca Pham RN [facility] Work Phone: Comment on above: Patient Position: Sitting; Cuff Location : Left Arm; Cuff Size: Large 08-25-2016 09:19-0400 BP Systolic 120 mm[Hg] Rebecca Pham RN [facility] Work Phone: Comment on above: Patient Position: Sitting; Cuff Location : Left Arm; Cuff Size: Large 08-25-2016 09:19-0400 BSA (Body Surface Area) 1.96 m2 Rebecca Pham RN [facility] Work Phone: 08-25-2016 09:19-0400 Height 162.56 cm Rebecca Pham RN [facility] Work Phone: 08-25-2016 09:19-0400 Pulse (Heart Rate) 77 /min Rebecca Pham RN [facility] Work Phone: Comment on above: Pattern: Regular 08-25-2016 09:19-0400 Pulse Oximetry 97 % Elin Reynolds [facility] Work Phone: Comment on above: Room air 08-25-2016 09:19-0400 Respiratory Rate 18 /min Rebecca Pham RN [facility] Work Phone: Comment on above: Pattern: Unlabored 08-25-2016 09:19-0400 SaO2% (BldA) [Mass fraction] 97 % Rebecca Pham RN [facility]; [facility] Work Phone: Comment on above: Room air 08-25-2016 09:19-0400 Weight 90.95 kg Elin Arguelloon [facility] Work Phone: 07-21-2016 09:58-0400 BMI (Body Mass Index) 34.07 kg/m2 Amairani Bravo RN [facility] Work Phone: 07-21-2016 09:58-0400 Body Temperature 98.6 [degF] Amairani Bravo RN [facility] Work Phone: Comment on above: Method: Temporal 07-21-2016 09:58-0400 Body weight 90.04 kg Amairani Bravo RN [facility] Work Phone: 07-21-2016 09:58-0400 BP Diastolic 78 mm[Hg] Amairani Bravo RN [facility] Work Phone: Comment on above: Patient Position: Sitting; Cuff Location : Left Arm; Cuff Size: Standard 07-21-2016 09:58-0400 BP Systolic 130 mm[Hg] Amairani Bravo RN [facility] Work Phone: Comment on above: Patient Position: Sitting; Cuff Location : Left Arm; Cuff Size: Standard 07-21-2016 09:58-0400 BSA (Body Surface Area) 1.95 m2 Amairani Bravo RN [facility] Work Phone: 07-21-2016 09:58-0400 Height 162.56 cm Amairani Bravo RN [facility] Work Phone: 07-21-2016 09:58-0400 Pulse (Heart Rate) 85 /min Amairani Bravo RN [facility] Work Phone: Comment on above: Pattern: Regular 07-21-2016 09:58-0400 Pulse Oximetry 97 % Elin Reynolds [facility] Work Phone: Comment on above: Room air 07-21-2016 09:58-0400 Respiratory Rate 16 /min Amairani Bravo RN [facility] Work Phone: Comment on above: Pattern: Unlabored 07-21-2016 09:58-0400 SaO2% (BldA) [Mass fraction] 97 % Amairani Bravo RN [facility]; [facility] Work Phone: Comment on above: Room air 07-21-2016 09:58-0400 Weight 90.04 kg Elin Reynolds [facility] Work Phone: 06-23-2016 13:23-0400 BMI (Body Mass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 Lt brachial Position Sitting Respiration 18 Pulse 80 Pulse Source Monitor Temp 97.5 F L Temperature Source Temporal Artery Pulse Oximetry (%) 96 Oxygen Delivery Method room air Intake Visit Reasons: 6 M FU Chief Complaint: Fasenra Injection Accompanied by: Self Is patient in pain?: No Allergies buprenorphine [From Butrans] Allergy (Mild, Verified 08/14/22 09:19) Hives terbinafine Allergy (Mild, Verified 08/14/22 09:19) Rash codeine Allergy (Verified 08/14/22 09:19) Unknown nortriptyline Adverse Reaction (Mild, Verified 08/14/22 09:19) Upset Stomach omeprazole Adverse Reaction (Mild, Verified 08/14/22 09:19) Diarrhea Penicillins Adverse Reaction (Mild, Verified 08/14/22 09:19) yeast infection naproxen [From Naprosyn] Adverse Reaction (Verified 08/14/22 09:19) gi upset nortriptyline HCl [From Pamelor] Adverse Reaction (Verified 08/14/22 09:19) Upset Stomach Medications hydrochlorothiazide 25 mg tablet 12.5 mg PO DAILY diuretic/water pill 11/05/15 [History Confirmed 08/14/22] pantoprazole 40 mg tablet,delayed release 40 mg PO DAILY gerd 11/05/15 [History Confirmed 08/14/22] simvastatin 40 mg tablet 40 mg PO QHS cholesterol 11/05/15 [History Confirmed 08/14/22] lisinopril 10 mg tablet 10 mg PO QHS blood pressure 07/09/17 [History Confirmed 08/14/22] benzonatate 200 mg capsule 200 mg PO TID PRN cough #90 caps 04/19/18 [Rx Confirmed 08/14/22] fluticasone propionate 50 mcg/actuation nasal spray,suspension (Flonase Allergy Relief) 2 spray intranasal DAILY #18.2 grams 07/20/18 [Rx Confirmed 08/14/22] albuterol sulfate 2.5 mg/3 mL (0.083 %) solution for nebulization 2.5 mg (3 mL) inhalation Q4H PRN Sob /Or Wheezing #180 vials 04/21/19 [Rx Confirmed 08/14/22] amitriptyline 50 mg tablet 50 mg PO QHS sleep 06/25/19 [History Confirmed 08/14/22] nebulizers #1 ea 04/02/20 [Rx Confirmed 08/14/22] metformin 500 mg tablet 500 mg PO BID 08/07/20 [History Confirmed 08/14/22] zolpidem 10 mg tablet (Ambien) 10 mg PO QHS PRN Sleep 10/05/20 [History Confirmed 08/14/22] phenazopyridine 200 mg tablet (Pyridium) 200 mg PO BID PRN PRN Pain #10 tabs 10/18/21 [Rx Confirmed 08/14/22] cetirizine 10 mg capsule 10 mg PO HS #30 caps 11/29/21 [Rx Confirmed 08/14/22] Fasenra 30 mg/mL subcutaneous syringe (benralizumab) 30 mg subcut Q8W #1 mL 12/31/21 [Rx Confirmed 08/14/22] Handicap Placcard #1 ea 02/04/22 [Rx Confirmed 08/14/22] albuterol sulfate 90 mcg/actuation aerosol inhaler (Ventolin HFA) 2 puff inhalation Q4H PRN shortness of breath or wheezing #1 device 02/04/22 [Rx Confirmed 08/14/22] montelukast 10 mg tablet 10 mg PO QPM #30 tabs 05/06/22 [Rx Confirmed 08/14/22] PFSH Medical History Asthma Atherosclerosis of coronary artery bypass graft of [place] heart with angina pectoris Back pain, sacroiliac 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 Candidiasis of mouth COVID-19 virus detected (10/04/20) Essential hypertension Excessive sweating Exercise-induced bronchospasm GERD (gastroesophageal reflux disease) History of TIA (transient ischemic attack) (2006) Hyperlipidemia Obesity Seasonal allergic rhinitis Type 2 diabetes mellitus Surgical History History of back surgery History of D C History of hysterectomy History of left heart catheterization (05/27/07) History of right breast biopsy History of tonsillectomy History of tubal ligation Family History Mother Anxiety Hypertension kidney/renal disease High cholesterol Brother Heart disease Cancer Bladder Cancer CAD (coronary artery disease) Father Heart disease Myocardial infarction, Onset Age: 43 CAD (coronary artery disease) Brother CAD (coronary artery disease) Social History Smoking Status: Never smoker second hand exposure: No alcohol intake: never substance use type: does not use caffeine: No what type of physical activity do you participate in: none Review of Systems Resp Respiratory: Yes as per HPI Exam Const Constitutional: Positive conversant, cooperative, in no acute respiratory distress, healthy appearing, well developed, well nourished, good hygiene and obese Head Head: Yes normocephalic and Yes atraumatic Eyes Eye: Positive clear conjunctiva; Negative nystagmus Ears Ear: Positive hearing normal and external ears normal Nose Nose: Yes external nose normal Mouth Mouth: Positive oral mucosae normal Neck Neck: Positive normal visual inspection, thick neck, full ROM and trachea midline Chest Wall Chest: Positive normal inspection of the chest and symmetric chest movement; Negative increased A/P diameter Resp lung sounds: Positive clear to auscultation, good air exchange, normal expiratory time and normal respiratory effort; Negative diminished lung sounds, wheezes, rhonchi or rales Cardio Cardiac: Positive regular rate, regular rhythm, S1 normal and S2 normal; Negative murmur GI GI: Positive normal to inspection and obese; Negative distended Genitourinary: Positive deferred Musc Musculoskeletal: Positive steady gait and ROM normal; Negative kyphosis or scoliosis Skin Pulmonary Skin Exam: Positive intact; Negative lesion, rash or ulcers Extremities Extremities: No clubbing and No cyanosis Neuro Neurologic: Yes no focal neuro deficits, Yes conversant, Yes cooperative, Yes normal cognition, Yes normal coordination, Yes normal concentration and Yes understands questions Psych Appearance: Positive grossly normal, eye contact and well kempt Mental Status: Positive mental status grossly normal Mood: Positive congruent mood Affect: Positive normal affect Office Procedures Asthma Injection Procedure: Details:: Patient presented for Fasenra injection. Patient tolerated treatment well. The patient was monitored for 15 minutes after treatment. Patient shows no signs of adverse reaction. Reviewed signs and symptoms of reaction. Patient instructed to call the office with new or worsening symptoms. Patient advised to report to the emergency department during after hours if necessary. Patient departed from the office with no signs of distress. Office Meds benralizumab 30 mg/mL subcutaneous syringe Performing Provider: Roya Oliveira DISHTANK OPERATOR, DISHTANK OPERATOR-C Performing Location: Pulmonary Medicine [facility] Administered by: oCdi Sanchez on 08/14/22 09:41 Dose Route Admin Location Dispensed Lot Number Expiration Date NDC Man ufacturer 30 mg subcut right arm 1 mL [id number] 04/16/24 3338-5623-88 ASTRAZENECA Coding Level of Care Code Off vis,est,level 3 Diagnoses Severe persistent asthma without complication J45.50 Asthma severity: severe Asthma persistence: persistent Asthma complication type: uncomplicated Seasonal allergic rhinitis due to pollen J30.1 Allergic rhinitis trigger: pollen Obesity E66.9 08/14/22 1544 <Electronically signed by Roya BARNES> Date Roya BARNES Cosigner Signature: Date (if applicable) CC: Elin Reynolds DO Work Phone: Start: 06-24-2022 End: 06-24-2022 Procedure Note: See Note; NOTES: [place] [id number] [place] [address] OFFICE VISIT Date of Service: 06/24/22 MR#: [id number] Acct: [id number] Patient: LETY SPENCER Rep #: [id number] : 1955 Provider: MOLLY Oliveira Age/Sex: 67/F Location: [facility] [place] [place].W Status: Signed Intake Vital Signs 03/04/22 09:32 04/29/22 09:27 06/24/22 09:18 Height 5 ft 4 in 5 ft 4 in 5 ft 4 in BP 118/70 Blood Pressure Location Rt brachial Position Sitting Respiration 20 H Pulse 92 Pulse Source Monitor Temp 98.2 F Temp Source Temporal Pulse Oximetry (%) 95 Oxygen Delivery Method room air Intake Visit Reasons: Injection 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 Accompanied by: Self Is patient in pain?: No Allergies buprenorphine [From Butrans] Allergy (Mild, Verified 06/24/22 09:18) Hives terbinafine Allergy (Mild, Verified 06/24/22 09:18) Rash codeine Allergy (Verified 06/24/22 09:18) Unknown nortriptyline Adverse Reaction (Mild, Verified 06/24/22 09:18) Upset Stomach omeprazole Adverse Reaction (Mild, Verified 06/24/22 09:18) Diarrhea Penicillins Adverse Reaction (Mild, Verified 06/24/22 09:18) yeast infection naproxen [From Naprosyn] Adverse Reaction (Verified 06/24/22 09:18) gi upset nortriptyline HCl [From Pamelor] Adverse Reaction (Verified 06/24/22 09:18) Upset Stomach Office Procedures Asthma Injection Procedure: Details:: Patient presented for Fasenra injection. Patient tolerated treatment well. The patient was monitored for 15 minutes after treatment. Patient shows no signs of adverse reaction. Reviewed signs and symptoms of reaction. Patient instructed to call the office with new or worsening symptoms. Patient advised to report to the emergency department during after hours if necessary. Patient departed from the office with no signs of distress. Patient [facility] Office Meds benralizumab Performing Provider: Roya Oliveira NP, MOLLY Administered by: Codi Sanchez on 06/24/22 09:19 Dose Route Admin Location Lot Number Expiration Date NDC Manufactu rer 30 mg subcut right arm [id number] 04/16/24 1144-3319-69 ASTRAZENECA 06/24/22 0959 <Electronically signed by Roya Oliveira NP, NP-C> Date Roya Oliveira NP, NP-C Cosigner Signature: Date (if applicable) CC: Elin Reynolds DO Work Phone: Start: 05-31-[address] Elin Reynolds Work Phone: Start: 05-31-2022 End: 05-31-2022 Procedure Note: See Note; NOTES: [facility] [place] Imaging Services [address] [place] [id number] MRCP Abdomen without Contrast MR#: [id number] Acct: [id number] Name: LETY SPENCER Rep #: [id number] : 1955 F 67 From: Neo Arroyo PCP: Dr. Elin Reynolds DO Status: REG CLI Study: MRCP Abdomen without Contrast Date of Exam: Exam# [id number] Ordering Dr: Dinora Hemphill STUDY: MR CHOLANGIOPANCREATOGRAPHY (MRCP) REASON FOR EXAM: Female, 67 years old. ABD PAIN, FATTY LIVER TECHNIQUE: Standard MRCP technique was utilized. 3-D postprocessing images were obtained. COMPARISON: ct 10.18.21 and US 04.30.22. FINDINGS: There is diffuse fatty infiltration of the liver. There are calcifications of the abdominal aorta. This is consistent for atherosclerotic disease. There is NO abdominal aortic aneurysm. Vascular workup can be obtained based on clinical correlation. Gall Bladder: Normal gallbladder and extrahepatic biliary system. Cystic duct: Normal with no demonstrated fixed filling defect. Intrahepatic ducts: Normal visualized intrahepatic ducts with no demonstrated fixed filling defect, dilation or stricture. Common hepatic duct: Normal with no demonstrated fixed filling defect, dilation or stricture. Common bile duct: Normal with no demonstrated fixed filling defect, dilation or stricture. Pancreatic duct: Normal with no demonstrated fixed filling defect, dilation or stricture. MRI/MRCP Abdomen without Contrast IMPRESSION: There is diffuse fatty infiltration of the liver. Electronically Signed: Neo Graham MD at 17:27 EDT , CC: Dr. Dinora Hemphill MD; Dr. Elin Reynolds DO Clinical Biostatistics Director: Signed Elin Reynolds DO Work Phone: Start: 04-30-[address] Elin Reynolds Work Phone: Start: 04-30-2022 End: 05-06-2022 Procedure Note: See Note; NOTES: [facility] [place] Imaging Services [address] [place] [address] Abdomen Complete MR#: [id number] Acct: [id number] Name: LETY SPENCER Rep #: [id number] : 1955 F 67 From: Yusuf Post MD PCP: Dr. Elin Reynolds, DO Status: REG CLI Study: Abdomen Complete Date of Exam: 04/30/22 Exam# [id number] Ordering Dr: DINORA OTERO STUDY: ABDOMINAL ULTRASOUND REASON FOR EXAM: Female, 67 years old. Abnormal LFTs TECHNIQUE: Transabdominal ultrasound was performed with real-time and static toth scale imaging. TECHNICAL QUALITY: Adequate. COMPARISON: 09/11/2020 FINDINGS: Liver: The liver measures 19 cm. There is increased echogenicity consistent with fatty infiltration. The bile ducts are within normal limits. There is hepatic color flow. The direction of portal flow is hepatopetal. There is no demonstrated mass lesion. Portal vein measurement: Gallbladder: Normal distended gallbladder. The gallbladder wall measures 1.9 mm. There is a negative sonographic Kearns''s sign. There is no pericholecystic fluid. There are no gallstones. Common Bile Duct (C.B.D.): The common bile duct measures 6.2 mm. Pancreas: Normal size of the head, body and tail of the pancreas. There is normal echogenicity of the pancreas. There is a stable 7 mm pancreatic cyst. Spleen: Normal size of the spleen. The spleen measures 11.0 cm. Right Kidney: Normal size of the right kidney. The right kidney measures 11.7 x 5.1 x 4.0 cm. Normal renal cortex. The right cortex measures 1.5 cm. There is no demonstrated renal mass or cyst. There is no right hydronephrosis. Left Kidney: Normal size of the left kidney. The left kidney measures 10.9 x 5.1 x 5.1 cm. Normal renal cortex. The left cortex measures 1.7 cm. There is no demonstrated renal mass or cyst. There is no left hydronephrosis. Aorta: Tapers normally I.V.C.: The IVC is patent. There is no ascites. US/Abdomen Complete IMPRESSION: Hepatomegaly with diffuse fatty infiltration of the liver, no discrete lesion Stable known simple pancreatic cyst No interval change Electronically Signed: Armin Post MD at 10:05 EDT , CC: Dr. Elin Reynolds DO; DINORA OTERO Clinical Biostatistics Director: Signed Elin Reynolds DO Work Phone: Start: 04-29-2022 End: 04-29-2022 Procedure Note: See Note; NOTES: [facility] [address] [place] [address] OFFICE VISIT Date of Service: 04/29/22 MR#: [id number] Acct: [id number] Patient: LETY SPENCER Rep #: [id number] : 1955 Provider: MOLLY Oliveira Age/Sex: 67/F Location: [facility] [place] [place].PMW Status: Signed Intake Vital Signs 04/29/22 09:27 Height 5 ft 4 in BP 122/73 H Blood Pressure Location Rt brachial Position Sitting Respiration 20 H Pulse 80 Pulse Source Monitor Temp 93.1 F L Temp Source Temporal Pulse Oximetry (%) 97 Oxygen Delivery Method room air Intake Visit Reasons: Injection 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 Accompanied by: Self Is patient in pain?: No Allergies buprenorphine [From Butrans] Allergy (Mild, Verified 04/29/22 09:27) Hives terbinafine Allergy (Mild, Verified 04/29/22 09:27) Rash codeine Allergy (Verified 04/29/22 09:27) Unknown nortriptyline Adverse Reaction (Mild, Verified 04/29/22 09:27) Upset Stomach omeprazole Adverse Reaction (Mild, Verified 04/29/22 09:27) Diarrhea Penicillins Adverse Reaction (Mild, Verified 04/29/22 09:27) yeast infection naproxen [From Naprosyn] Adverse Reaction (Verified 04/29/22 09:27) gi upset nortriptyline HCl [From Pamelor] Adverse Reaction (Verified 04/29/22 09:27) Upset Stomach Office Procedures Asthma Injection Procedure: Details:: Patient presented for Fasenera injection. Patient tolerated treatment well. The patient was monitored for 20 minutes after treatment. Patient shows no signs of adverse reaction. Reviewed signs and symptoms of reaction. Patient instructed to call the office with new or worsening symptoms. Patient advised to report to the emergency department during after hours if necessary. Patient departed from the office with no signs of distress. Office Meds benralizumab Performing Provider: Roya Oliveira NP, FALGUNIC Administered by: Codi Sanchez on 04/29/22 09:25 Dose Route Admin Location Lot Number Expiration Date NDC Manufactu rer 30 mg subcut right arm [id number] 03/19/24 4078-7114-47 [employer] 04/29/22 1119 <Electronically signed by Roya Oliveira NP DISHTANK OPERATOR-C> Date Roya Oliveira NP, NP-C Cosigner Signature: Date (if applicable) CC: Elin Reynolds DO Work Phone: Start: 03-04-2022 End: 03-04-2022 Procedure Note: See Note; NOTES: [facility] [place] [address] OFFICE VISIT Date of Service: 03/04/22 MR#: [id number] Acct: [id number] Patient: LETY SPENCER Rep #: [id number] : 1955 Provider: MOLLY Oliveira Age/Sex: 66/F Location: [facility] [place] [place].PMW Status: Signed Intake Vital Signs 10/18/21 18:28 03/04/22 09:32 Height 5 ft 4 in 5 ft 4 in Weight: 208 lb 6 oz BMI 35.7 BP 112/66 Blood Pressure Location Rt brachial Position Sitting Respiration 20 H Pulse 92 Pulse Source Monitor Temp 97.8 F Temp Source Temporal Pulse Oximetry (%) 97 Oxygen Delivery Method room air Intake Visit Reasons: Injection 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 Accompanied by: Self Is patient in pain?: No Allergies buprenorphine [From Butrans] Allergy (Mild, Verified 02/04/22 09:55) Hives terbinafine Allergy (Mild, Verified 02/04/22 09:55) Rash codeine Allergy (Verified 02/04/22 09:55) Unknown nortriptyline Adverse Reaction (Mild, Verified 02/04/22 09:55) Upset Stomach omeprazole Adverse Reaction (Mild, Verified 02/04/22 09:55) Diarrhea Penicillins Adverse Reaction (Mild, Verified 02/04/22 09:55) yeast infection naproxen [From Naprosyn] Adverse Reaction (Verified 02/04/22 09:55) gi upset nortriptyline HCl [From Pamelor] Adverse Reaction (Verified 02/04/22 09:55) Upset Stomach Office Procedures Asthma Injection Procedure: Details:: Patient presented for [] injection. Patient tolerated treatment well. The patient was monitored for [] minutes after treatment. Patient shows no signs of adverse reaction. Reviewed signs and symptoms of reaction. Patient instructed to call the office with new or worsening symptoms. Patient advised to report to the emergency department during after hours if necessary. Patient departed from the office with no signs of distress. Office Meds benralizumab Performing Provider: Roya Oliveira NP, DISHTANK OPERATORChelyC Administered by: Codi Sanchez on 03/04/22 09:35 Dose Route Admin Location Lot Number Expiration Date NDC Manufactu rer 30 mg subcut right arm [id number] 12/18/23 9872-1768-64 [facility] Patient presented for Fasenra injection. Patient tolerated treatment well. The patient was monitored for 15 minutes after treatment. Patient shows no signs of adverse reaction. Reviewed signs and symptoms of reaction. Patient instructed to call the office with new or worsening symptoms. Patient advised to report to the emergency department during after hours if necessary. Patient departed from the office with no signs of distress. 03/04/22 1041 <Electronically signed by Roya Oliveira NP DISHTANK OPERATOR-C> Date Roya Oliveira NP DISHTANK OPERATOR-C Cosigner Signature: Date (if applicable) CC: Elin Reynolds DO Work Phone: Start: 02-04-2022 End: 02-04-2022 Procedure Note: See Note; NOTES: [facility] Pulmonary Medicine [address] [place] [address] OFFICE VISIT Date of Service: 02/04/22 MR#: [id number] Acct: [id number] Name: LETY SPENCER Rep #: [id number] : 1955 Provider: Dr. Ayush Leblanc DO Age/Sex: 66/F Location: [facility] [place] [place].[facility]W Status: Signed Assessment and Plan Assessment and Plan (1) Asthma: Status: Chronic Qualifiers: Asthma severity: severe Asthma persistence: persistent Asthma complication type: uncomplicated Qualified Code(s): J45.50 - Severe persistent asthma, uncomplicated Plan: The patient remains symptomatically well controlled. Continue current inhaler regimen along with Fasenra injections. The patient was advised to contact our office with any worsening in her breathing quality and/or increasing reliance on her short acting beta agonist. Medications: New [Handicap Placcard] Length of Time: 99 months 1 ea 0RF J44.9 Refilled albuterol sulfate 90 mcg/actuation (Ventolin HFA) 2 puffs inhalation Q4H PRN 1 device 6RF shortness of breath or wheezing Plan Details Follow Up: 6 Months HPI HPI Comments Details: The patient is a 66-year-old female who presents to the clinic today for a routine scheduled follow- up office visit. If you recall, I initially saw the patient in January 2016, after she presented to the clinic with an established asthma diagnosis. She was initially diagnosed sometime in her late 20s. She had been seen previously by a pulmonary provider at [facility] until 2008. She is a lifelong non-smoker. Current triggers for worsening of her breathing quality have included: Cold air and cigarette smoke exposure. She has a history of seasonal allergic rhinitis, as well. Pulmonary function testing completed in January 2016 showed the presence of a mild large airways obstructive ventilatory defect with an associated significant response to aerosolized bronchodilators. Repeat pulmonary function testing completed in December 2019 was grossly normal with stigmata of small airways disease. Today, the patient reports continued stability in her breathing quality. She remains compliant with her inhaler regimen and continues to receive Fasenra injections. Her rescue inhaler utilization is quite infrequent. She has not experienced any recent exacerbations. Her weight and appetite have been stable. She denies fevers, chills or night sweats. Intake Vital Signs 08/07/21 09:18 01/07/22 09:07 02/04/22 06:48 02/04/22 09:54 Height 5 ft 4 in 5 ft 4 in 5 ft 4 in 5 ft 4 in Weight: 211 lb BMI 36.2 BP 123/77 H 132/80 H Blood Pressure Location Rt brachial Rt brachial Position Sitting Sitting Respiration 18 18 Pulse 87 84 Pulse Source Monitor Monitor Temp 93.0 F L 97.7 F L Temperature Source Temporal Artery Pulse Oximetry (%) 97 97 Oxygen Delivery Method room air room air Intake Visit Reasons: 6 M FU 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 DME Vendor: n/a Accompanied by: Self Is patient in pain?: No Allergies buprenorphine [From Butrans] Allergy (Mild, Verified 02/04/22 09:55) Hives terbinafine Allergy (Mild, Verified 02/04/22 09:55) Rash codeine Allergy (Verified 02/04/22 09:55) Unknown nortriptyline Adverse Reaction (Mild, Verified 02/04/22 09:55) Upset Stomach omeprazole Adverse Reaction (Mild, Verified 02/04/22 09:55) Diarrhea Penicillins Adverse Reaction (Mild, Verified 02/04/22 09:55) yeast infection naproxen [From Naprosyn] Adverse Reaction (Verified 02/04/22 09:55) gi upset nortriptyline HCl [From Pamelor] Adverse Reaction (Verified 02/04/22 09:55) Upset Stomach Medications hydrochlorothiazide 25 mg tablet 12.5 mg PO DAILY diuretic/water pill 11/05/15 [History Confirmed 02/04/22] pantoprazole 40 mg tablet,delayed release 40 mg PO DAILY gerd 11/05/15 [History Confirmed 02/04/22] simvastatin 40 mg tablet 40 mg PO QHS cholesterol 11/05/15 [History Confirmed 02/04/22] lisinopril 10 mg tablet 10 mg PO QHS blood pressure 07/09/17 [History Confirmed 02/04/22] benzonatate 200 mg capsule 200 mg PO TID PRN cough #90 caps 04/19/18 [Rx Confirmed 02/04/22] fluticasone propionate 50 mcg/actuation nasal spray,suspension (Flonase Allergy Relief) 2 spray intranasal DAILY #18.2 grams 07/20/18 [Rx Confirmed 02/04/22] albuterol sulfate 2.5 mg/3 mL (0.083 %) solution for nebulization 2.5 mg (3 mL) inhalation Q4H PRN Sob /Or Wheezing #180 vials 04/21/19 [Rx Confirmed 02/04/22] amitriptyline 50 mg tablet 50 mg PO QHS sleep 06/25/19 [History Confirmed 02/04/22] nebulizers #1 ea 04/02/20 [Rx Confirmed 02/04/22] metformin 500 mg tablet 500 mg PO BID 08/07/20 [History Confirmed 02/04/22] zolpidem 10 mg tablet (Ambien) 10 mg PO QHS PRN Sleep 10/05/20 [History Confirmed 02/04/22] montelukast 10 mg tablet 10 mg PO QPM #30 tabs 09/18/21 [Rx Confirmed 02/04/22] phenazopyridine 200 mg tablet (Pyridium) 200 mg PO BID PRN PRN Pain #10 tabs 10/18/21 [Rx Confirmed 02/04/22] cetirizine 10 mg capsule 10 mg PO HS #30 caps 11/29/21 [Rx Confirmed 02/04/22] Fasenra 30 mg/mL subcutaneous syringe (benralizumab) 30 mg subcut Q8W #1 mL 12/31/21 [Rx Confirmed 02/04/22] Handicap Placcard #1 ea 02/04/22 [Rx Confirmed 02/04/22] albuterol sulfate 90 mcg/actuation aerosol inhaler (Ventolin HFA) 2 puff inhalation Q4H PRN shortness of breath or wheezing #1 device 02/04/22 [Rx Confirmed 02/04/22] PFSH Medical History Asthma Atherosclerosis of coronary artery bypass graft of [place] heart with angina pectoris Back pain, sacroiliac 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 Candidiasis of mouth COVID-19 virus detected (10/04/20) Essential hypertension Excessive sweating Exercise-induced bronchospasm GERD (gastroesophageal reflux disease) History of TIA (transient ischemic attack) (2006) Hyperlipidemia Obesity Seasonal allergic rhinitis Type 2 diabetes mellitus Surgical History History of back surgery History of D C History of hysterectomy History of left heart catheterization (05/27/07) History of right breast biopsy History of tonsillectomy History of tubal ligation Family History Mother Anxiety Hypertension kidney/renal disease High cholesterol Brother Heart disease Cancer Bladder Cancer CAD (coronary artery disease) Father Heart disease Myocardial infarction, Onset Age: 43 CAD (coronary artery disease) Brother CAD (coronary artery disease) Social History Smoking Status: Never smoker second hand exposure: No alcohol intake: never substance use type: does not use caffeine: No what type of physical activity do you participate in: none Review of Systems Resp Respiratory: Yes as per HPI Exam Const Constitutional: Positive conversant, cooperative, in no acute respiratory distress, well developed, well nourished, good hygiene and obese Head Head: Yes normocephalic and Yes atraumatic Eyes Eye: Positive clear conjunctiva; Negative nystagmus or scleral abnormality Ears Ear: Positive hearing normal and external ears normal Nose Nose: Yes external nose normal Mouth Mouth: Positive oral mucosae normal Neck Neck: Positive normal visual inspection and trachea midline; Negative lymphadenopathy Chest Wall Chest: Positive symmetric chest movement Normal AP diameter. Resp lung sounds: Positive clear to auscultation and good air exchange; Negative wheezes, rhonchi or rales Cardio Cardiac: Positive regular rate, regular rhythm, S1 normal and S2 normal; Negative murmur, rub or gallop GI GI: Positive normal bowel sounds and obese Soft without distention Genitourinary: Positive deferred Musc Musculoskeletal: Positive steady gait Skin Pulmonary Skin Exam: Positive intact; Negative lesion, rash, ulcers or dermal atrophy Extremities Extremities: No clubbing, No cyanosis and No edema Neuro Neurologic: Yes no focal neuro deficits, Yes conversant and Yes cooperative Lymph Lymphatic: No lymphadenopathy Psych Appearance: Positive grossly normal Mental Status: Positive mental status grossly normal Mood: Positive congruent mood Affect: Positive normal affect Coding Level of Care Code Off vis,est,level 3 Diagnoses Asthma J45.50 Asthma severity: severe Asthma persistence: persistent Asthma complication type: uncomplicated 02/04/22 1110 <Electronically signed by Ayush Leblanc DO> Date Ayush Leblanc DO Cosigner Signature: Date (if applicable) CC: Elin Yessi DAVE Work Phone: Start: 01-07-2022 End: 01-07-2022 Procedure Note: See Note; NOTES: [facility] [address] [place] [address] [place] [address] OFFICE VISIT Date of Service: 01/07/22 MR#: [id number] Acct: [id number] Patient: ELTY SPENCER Rep #: [id number] : 1955 Provider: MOLLY Oliveira Age/Sex: 66/F Location: [facility] [place] [place].[facility] Status: Signed Intake Vital Signs 01/07/22 09:07 Height 5 ft 4 in BP 123/77 H Blood Pressure Location Rt brachial Position Sitting Respiration 18 Pulse 87 Pulse Source Monitor Temp 93.0 F L Temp Source Temporal Pulse Oximetry (%) 97 Oxygen Delivery Method room air Intake Visit Reasons: Injection Chief Complaint: Fasenra Injection Allergies buprenorphine [From Butrans] Allergy (Mild, Verified 10/18/21 18:30) Hives terbinafine Allergy (Mild, Verified 10/18/21 18:30) Rash codeine Allergy (Verified 10/18/21 18:30) Unknown nortriptyline Adverse Reaction (Mild, Verified 10/18/21 18:30) Upset Stomach omeprazole Adverse Reaction (Mild, Verified 10/18/21 18:30) Diarrhea Penicillins Adverse Reaction (Mild, Verified 10/18/21 18:30) yeast infection naproxen [From Naprosyn] Adverse Reaction (Verified 10/18/21 18:30) gi upset nortriptyline HCl [From Pamelor] Adverse Reaction (Verified 10/18/21 18:30) Upset Stomach Office Procedures Asthma Injection Procedure: Details:: Patient presented for [] injection. Patient tolerated treatment well. The patient was monitored for [] minutes after treatment. Patient shows no signs of adverse reaction. Reviewed signs and symptoms of reaction. Patient instructed to call the office with new or worsening symptoms. Patient advised to report to the emergency department during after hours if necessary. Patient departed from the office with no signs of distress. Office Meds benralizumab Performing Provider: Roya Oliveira NP, DISHTANK OPERATOR-C Administered by: Codi Sanchez on 01/07/22 09:10 Dose Route Admin Location Lot Number Expiration Date NDC Manufactu rer 30 mg subcut Right Arm [id number] 04/17/23 7353-9552-70 [facility] Patient presented for Fasenra injection. Patient tolerated treatment well. The patient was monitored for 15 minutes after treatment. Patient shows no signs of adverse reaction. Reviewed signs and symptoms of reaction. Patient instructed to call the office with new or worsening symptoms. Patient advised to report to the emergency department during after hours if necessary. Patient departed from the office with no signs of distress. 01/07/22 1412 <Electronically signed by Roya Oliveira NP DISHTANK OPERATOR-C> Date Roya Oliveira NP DISHTANK OPERATOR-C Traviser Signature: Date (if applicable) CC: Elin Reynolds DO Work Phone: Start: 11-12-2021 End: 11-12-2021 Procedure Note: See Note; NOTES: [facility] [address] [place] [address] OFFICE VISIT Date of Service: 11/12/21 MR#: [id number] Acct: [id number] Patient: LETY SPENCER Rep #: [id number] : 1955 Provider: Dr. Darrick Kramer MD Age/Sex: 66/F Location: [facility] [place] [place] Status: Signed Intake Vital Signs 08/07/21 09:18 10/18/21 18:28 11/12/21 09:06 Height 5 ft 4 in 5 ft 4 in Weight: 195 lb BMI 33.5 BP 134/78 H 125/65 H Blood Pressure Location Rt brachial Position Sitting Respiration 16 18 Pulse 100 85 Pulse Source Monitor Temp 97.9 F 95.7 F L Temp Source Temporal Temporal Pulse Oximetry (%) 98 96 Oxygen Delivery Method room air Intake Visit Reasons: Injection Chief Complaint: Fasenra Injection Allergies buprenorphine [From Butrans] Allergy (Mild, Verified 10/18/21 18:30) Hives terbinafine Allergy (Mild, Verified 10/18/21 18:30) Rash codeine Allergy (Verified 10/18/21 18:30) Unknown nortriptyline Adverse Reaction (Mild, Verified 10/18/21 18:30) Upset Stomach omeprazole Adverse Reaction (Mild, Verified 10/18/21 18:30) Diarrhea Penicillins Adverse Reaction (Mild, Verified 10/18/21 18:30) yeast infection naproxen [From Naprosyn] Adverse Reaction (Verified 10/18/21 18:30) gi upset nortriptyline HCl [From Pamelor] Adverse Reaction (Verified 10/18/21 18:30) Upset Stomach Office Procedures Asthma Injection Procedure: Details:: Patient presented for [] injection. Patient tolerated treatment well. The patient was monitored for [] minutes after treatment. Patient shows no signs of adverse reaction. Reviewed signs and symptoms of reaction. Patient instructed to call the office with new or worsening symptoms. Patient advised to report to the emergency department during after hours if necessary. Patient departed from the office with no signs of distress. Office Meds benralizumab Performing Provider: Darrick Kramer MD Administered by: Codi Sanchez on 11/12/21 08:52 Dose Route Admin Location Lot Number Expiration Date NDC Manufactu rer 30 mg subcut right arm [id number] 12/17/22 9919-1867-91 [facility] Nursing [facility] Patient presented for Fasenra injection. Patient tolerated treatment well. The patient was monitored for 15 minutes after treatment. Patient shows no signs of adverse reaction. Reviewed signs and symptoms of reaction. Patient instructed to call the office with new or worsening symptoms. Patient advised to report to the emergency department during after hours if necessary. Patient departed from the office with no signs of distress. 11/12/21 1038 <Electronically signed by Darrick Kramer MD> Date Darrick Kramer MD Cosigner Signature: Date (if applicable) CC: Elin Reynolds DO Work Phone: Start: 10-18-2021 CT of abdomen and pelvis without contrast Dr. Elin Reynolds Work Phone: Start: 10-18-2021 End: 10-18-2021 Procedure Note: See Note; NOTES: [facility] [place] Imaging Services [address] [place] [address] Abdomen/Pelvis without Cont MR#: [id number] Acct: [id number] Name: LETY SPENCRE Rep #: [id number] : 1955 F 66 From: Kory Luna DO PCP: Dr. Elin Reynolds DO Status: REG ER Study: Abdomen/Pelvis without Cont Date of Exam: 04/09 Exam# [id number] Ordering Dr: Lisa Cali MD STUDY: CT ABDOMEN AND PELVIS WITHOUT CONTRAST REASON FOR EXAM: Female, 66 years old. Left flank pain, UTI, H/O stones RADIATION DOSAGE (If Supplied By Facility): CTDIvol = ( 17.26 ) mGy, DLP = ( 875.10 ) mGycm TECHNIQUE: Transaxial images were obtained from the dome of the diaphragm to the symphysis pubis without oral contrast, and without intravenous contrast. Sagittal and coronal images were reconstructed. Individualized dose optimization techniques were used for this CT. COMPARISON: None. FINDINGS: The visualized lung bases are unremarkable. The visualized portions of the heart are within normal limits. There is decreased attenuation of the liver consistent with steatosis. Normal gallbladder and extrahepatic biliary system. Normal spleen. Normal pancreas. Normal bilateral adrenal glands. Normal right kidney. Normal left kidney. Normal visualized stomach. Normal small intestine. There are multiple colonic diverticula consistent with diverticulosis. The appendix is visualized and appears normal. There is diffuse atherosclerotic calcification of the abdominal aorta, without a demonstrated aneurysm. Normal inferior vena cava. Normal retroperitoneum. There is circumferential bladder wall thickening with some inflammation suggesting acute urinary cystitis. No evidence of obstructive hydronephrosis. There is absence of the uterus consistent with a prior hysterectomy. Normal abdominal wall. There are diffuse degenerative changes of the visualized lumbar spine. Fusion hardware from L4 through S1. CT/Abdomen/Pelvis without Cont IMPRESSION: Acute urinary cystitis Electronically Signed: Kory Luna DO at 21:47 EDT , CC: Dr. Lisa Cali MD; Dr. Elin Reynolds DO Clinical Biostatistics Director: Signed Elin Reynolds DO Work Phone: Start: 10-18-2021 End: 10-19-2021 Procedure Note: See Note; NOTES: [facility] Medical Records Department [address] [place] [address] Emergency Department Summary 10/18/21 MR#: [id number] Acct: [id number] Name: LETY SPENCER Rep #: [id number] : 1955 66 From: Lisa Cali MD PCP: Dr. Elin Reynolds DO Status:DEP ER Location: ED HPI History of Present Illness Chief Complaint: Complaint Informant: patient Onset/Context/Timing Onset: Today Context: Gradual Onset Current Severity: Moderate Maximum Severity: Severe Narrative Narrative: Patient presents secondary to dysuria and left flank pain. She states she had some mild burning after urination this morning. It progressed slightly during the day and after waking from a nap tonight she had severe pain. She points to the left lower quadrant states it feels that it is going through to her back. She does have a history of a right-sided kidney stone in the past. [facility] Medical History Asthma Atherosclerosis of coronary artery bypass graft of [place] heart with angina pectoris Back pain, sacroiliac 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 Candidiasis of mouth COVID-19 virus detected (10/04/20) Essential hypertension Excessive sweating Exercise-induced bronchospasm GERD (gastroesophageal reflux disease) History of TIA (transient ischemic attack) (2006) Hyperlipidemia Obesity Seasonal allergic rhinitis Type 2 diabetes mellitus Home Medications hydrochlorothiazide 25 mg tablet 12.5 mg PO DAILY diuretic/water pill 11/05/15 [History Last Taken 10/05/20] pantoprazole 40 mg tablet,delayed release 40 mg PO DAILY gerd 11/05/15 [History Last Taken 10/05/20] simvastatin 40 mg tablet 40 mg PO QHS cholesterol 11/05/15 [History Last Taken 10/04/20] lisinopril 10 mg tablet 10 mg PO QHS blood pressure 07/09/17 [History Last Taken 10/04/20] benzonatate 200 mg capsule 200 mg PO TID PRN cough #90 caps 04/19/18 [Rx Last Taken Unknown] fluticasone propionate 50 mcg/actuation nasal spray,suspension (Flonase Allergy Relief) 2 spray intranasal DAILY #18.2 grams 07/20/18 [Rx Last Taken Unknown] albuterol sulfate 2.5 mg/3 mL (0.083 %) solution for nebulization 2.5 mg (3 mL) inhalation Q4H PRN Sob /Or Wheezing #180 vials 04/21/19 [Rx Last Taken Unknown] amitriptyline 50 mg tablet 50 mg PO QHS sleep 06/25/19 [History Last Taken Unknown] nebulizers #1 ea 04/02/20 [Rx Last Taken Unknown] metformin 500 mg tablet 500 mg PO BID 08/07/20 [History Last Taken 10/05/20] zolpidem 10 mg tablet (Ambien) 10 mg PO QHS PRN Sleep 10/05/20 [History Last Taken Unknown] cetirizine 10 mg capsule 10 mg PO HS #30 caps 11/19/20 [Rx Last Taken Unknown] Fasenra 30 mg/mL subcutaneous syringe (benralizumab) 30 mg subcut Q8W #1 mL 12/12/20 [Rx Last Taken Unknown] prednisone 10 mg tablet 10 mg PO QDAY PRN 05/29/21 [History Last Taken Unknown] albuterol sulfate 90 mcg/actuation aerosol inhaler (Ventolin HFA) 2 puff inhalation Q4H PRN shortness of breath or wheezing #1 device 08/07/21 [Rx Last Taken Unknown] montelukast 10 mg tablet 10 mg PO QPM #30 tabs 09/18/21 [Rx Last Taken Unknown] phenazopyridine 200 mg tablet (Pyridium) 200 mg PO BID PRN PRN Pain #10 tabs 10/18/21 [Rx Last Taken Unknown] sulfamethoxazole 800 mg-trimethoprim 160 mg tablet (Bactrim DS) 1 tab PO BID #10 tabs 10/18/21 [Rx Last Taken Unknown] Allergy/AdvReac Type Severity Reaction Status Date / Time buprenorphine [From Butrans] Allergy Mild Hives Verified 10/18/21 18:30 terbinafine Allergy Mild Rash Verified 10/18/21 18:30 codeine Allergy Unknown Verified 10/18/21 18:30 nortriptyline AdvReac Mild Upset Verified 10/18/21 18:30 Stomach omeprazole AdvReac Mild Diarrhea Verified 10/18/21 18:30 Penicillins AdvReac Mild yeast Verified 10/18/21 18:30 infection naproxen [From Naprosyn] AdvReac gi upset Verified 10/18/21 18:30 nortriptyline HCl AdvReac Upset Verified 10/18/21 18:30 [From Pamelor] Stomach Family History Mother Anxiety Hypertension kidney/renal disease High cholesterol Brother Heart disease Cancer Bladder Cancer CAD (coronary artery disease) Father Heart disease Myocardial infarction, Onset Age: 43 CAD (coronary artery disease) Brother CAD (coronary artery disease) Surgical History History of back surgery History of D C History of hysterectomy History of left heart catheterization (05/27/07) History of right breast biopsy History of tonsillectomy History of tubal ligation Social History Smoking Status: Never smoker second hand exposure: No alcohol intake: never substance use type: does not use caffeine: No what type of physical activity do you participate in: none ROS ROS ED Constitutional Constitutional ED: Denies chills or fever(s) Eyes Eyes: Denies change in vision or discharge from eye(s) ENT ENT ED: Denies discharge from eye(s), rhinorrhea or sore throat Cardiovascular Cardiovascular: Denies chest pain or palpitations Respiratory/Chest Respiratory/Chest: Denies cough or dyspnea Gastrointestinal Gastrointestinal: Reports abdominal pain and nausea; Denies diarrhea or vomiting Genitourinary Genitourinary ED: Reports dysuria; Denies difficulty urinating Musculoskeletal Musculoskeletal: Reports back pain; Denies extremity pain Integumentary Denies Abrasions or rash Neurologic Neurologic: Denies headache(s) or weakness Psychiatric Psychiatric: Denies anxiety or depression Allergic/Immunologic Allergic/Immunologic ED: Denies lip swelling or urticaria EXAM Physical Exam Const Vital Signs: 10/18/21 18:28 Temperature 97.9 F Temperature Source Temporal Pulse Rate 100 Respiratory Rate 16 Blood Pressure 134/78 H Blood Pressure Mean 96 Pulse Ox 98 Oxygen Delivery Method Room Air Positive well nourished and well developed General Appearance ED: well developed HEENT Reports normocephalic and head/scalp atraumatic Eyes PERRL and EOMs intact bilaterally Neck supple Chest Wall inspection of chest normal and palpation of chest normal Resp normal respiratory effort and clear to auscultation bilaterally Cardio regular rate and regular rhythm GI Palpation: soft and tender suprapubic Back/Spine no CVA tenderness Extremity normal to inspection Neuro oriented x3 and no sensory deficits noted Sensorium / Orientation: alert Motor Exam: strength 5/5 throughout Psych mental status grossly normal Skin no rashes or lesions noted MDM MDM MDM Narrative Medical decision making narrative: Patient given ibuprofen, Diggs, Zofran for pain and nausea. Urinalysis obtained per nursing protocol. CT flank ordered at time of my exam. Lab Data Attestation: I reviewed the patient's lab results. Labs: Laboratory Results - last 24 hr 10/18/21 19:10 Urine Color Straw Urine Clarity Sl. Cloudy Urine pH 6.0 Ur Specific [place] 1.015 Urine Protein 15 H Urine Glucose (UA) Normal Urine Ketones Negative Urine Occult Blood 25 H Urine Nitrite Positive H Urine Bilirubin Negative Urine Urobilinogen Normal Ur Leukocyte Esterase 500 H Urine RBC 0-5 SEEN Urine WBC 25-50 SEEN Ur Squamous Epith Cells 5-10 SEEN Urine Bacteria 4+ Urine Mucus 0 SEEN Radiography Diagnostic Testing: Clinical Impression(s) from Imaging Studies Abdomen/Pelvis CT 10/18/21 21:20 IMPRESSION: Acute urinary cystitis Electronically Signed: Kory Luna DO at 21:47 EDT Reading Location ID and State: [address] [place] [address] Tel , Service support , Treatment and Re-Evaluation Narrative: Patient does have evidence of UTI with 4+ bacteria and positive nitrites. CT scan consistent with acute cystitis, no evidence of kidney stone. Patient is treated with Bactrim and Azo. Return i nstructions provided. Discharge Plan Triage Chief Complaint: Complaint ED Provider: Lisa Cali Dx/Rx/DC Orders Clinical Impression: Cystitis Instructions: ED Cystitis Female Adult Prescriptions: New phenazopyridine [Pyridium] 200 mg tablet 200 mg PO BID PRN PRN (Reason: Pain) Qty: 10 0RF sulfamethoxazole-trimethopr im [Bactrim DS] 800-160 mg tablet 1 tab PO BID Qty: 10 0RF No Action benzonatate 200 mg capsule 200 mg PO TID PRN (Reason: cough) Qty: 90 0RF albuterol sulfate 2.5 mg /3 mL (0.083 %) solution for nebulization 2.5 mg inhalation Q4H PRN (Reason: Sob /Or Wheezing) Qty: 180 6RF metformin 500 mg tablet 500 mg PO BID prednisone 10 mg tablet 10 mg PO QDAY PRN albuterol sulfate [Ventolin HFA] 90 mcg/actuation HFA aerosol inhaler 2 puff INHALATION Q4H PRN (Reason: shortness of breath or wheezing) Qty: 1 6RF simvastatin 40 MG tablet 40 mg PO QHS pantoprazole 40 MG tablet 40 mg PO DAILY hydrochlorothiazide 25 MG tablet 12.5 mg PO DAILY lisinopril 10 MG tablet 10 mg PO QHS amitriptyline 50 MG tablet 50 mg PO QHS zolpidem [Ambien] 10 mg Tablet 10 mg PO QHS PRN (Reason: Sleep) fluticasone propionate [Flonase Allergy Relief] 50 mcg/actuation spray,suspension 2 spray INTRANASAL DAILY Qty: 18.2 8RF (DME) nebulizers Misc See Rx Instructions .ROUTE .MEDSUPPLY Qty: 1 0RF Rx Instructions: As directed cetirizine 10 mg capsule 10 mg PO HS Qty: 30 11RF Fasenra 30 mg/mL syringe 30 mg SC Q8W Qty: 1 12RF montelukast 10 mg tablet 10 mg PO QPM Qty: 30 6RF Primary Care Provider: Elin Reynolds Referrals: Elin Reynolds DO [Primary Care Provider] - 1 Week if not improving Disposition Disposition: Home, Self Care What to do if you have Problems For any increased pain, shortness of breath, bleeding, nausea or vomiting, chest pain, or any unexpected problems, contact your Primary Care Provider. Call [facility] ([phone]) or report to the closest Emergency Room. Call 911 if necessary. 10/19/21 0011 <Electronically signed by Lisa Cali MD> Cosigner Signature (if applicable): CC: Dr. Elin Reynolds DO Signed Elin Reynolds DO Work Phone: Start: 09-17-2021 End: 09-17-2021 Procedure Note: See Note; NOTES: [facility] [address] OFFICE VISIT Date of Service: 09/17/21 MR#: [id number] Acct: [id number] Patient: LETY SPENCER Rep #: [id number] : 1955 Provider: Dr. Darrick Kramer MD Age/Sex: 66/F Location: [facility] [place] [place].[facility] Status: Signed Intake Vital Signs 05/29/21 09:53 09/17/21 09:04 Height 5 ft 4 in 5 ft 4 in Weight: 92.986 kg BMI 35.2 BP 145/80 H Blood Pressure Location Lt brachial Position Sitting Respiration 17 Pulse 93 Pulse Source Monitor Temp 36.3 C L Temp Source Temporal Pulse Oximetry (%) 96 Oxygen Delivery Method room air Intake Visit Reasons: Injection 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 Accompanied by: Self Is patient in pain?: No Allergies buprenorphine [From Butrans] Allergy (Mild, Verified 09/17/21 09:05) Hives terbinafine Allergy (Mild, Verified 09/17/21 09:05) Rash codeine Allergy (Verified 09/17/21 09:05) Unknown nortriptyline Adverse Reaction (Mild, Verified 09/17/21 09:05) Upset Stomach omeprazole Adverse Reaction (Mild, Verified 09/17/21 09:05) Diarrhea Penicillins Adverse Reaction (Mild, Verified 09/17/21 09:05) yeast infection naproxen [From Naprosyn] Adverse Reaction (Verified 09/17/21 09:05) gi upset nortriptyline HCl [From Pamelor] Adverse Reaction (Verified 09/17/21 09:05) Upset Stomach Medications hydrochlorothiazide 25 mg tablet 12.5 mg PO DAILY diuretic/water pill 11/05/15 [History Confirmed 09/17/21] pantoprazole 40 mg tablet,delayed release 40 mg PO DAILY gerd 11/05/15 [History Confirmed 09/17/21] simvastatin 40 mg tablet 40 mg PO QHS cholesterol 11/05/15 [History Confirmed 09/17/21] lisinopril 10 mg tablet 10 mg PO QHS blood pressure 07/09/17 [History Confirmed 09/17/21] benzonatate 200 mg capsule 200 mg PO TID PRN cough #90 caps 04/19/18 [Rx Confirmed 09/17/21] fluticasone propionate 50 mcg/actuation nasal spray,suspension (Flonase Allergy Relief) 2 spray intranasal DAILY #18.2 grams 07/20/18 [Rx Confirmed 09/17/21] albuterol sulfate 2.5 mg/3 mL (0.083 %) solution for nebulization 2.5 mg (3 mL) inhalation Q4H PRN Sob /Or Wheezing #180 vials 04/21/19 [Rx Confirmed 09/17/21] amitriptyline 50 mg tablet 50 mg PO QHS sleep 06/25/19 [History Confirmed 09/17/21] nebulizers #1 ea 04/02/20 [Rx Confirmed 09/17/21] metformin 500 mg tablet 500 mg PO BID 08/07/20 [History Confirmed 09/17/21] zolpidem 10 mg tablet (Ambien) 10 mg PO QHS PRN Sleep 10/05/20 [History Confirmed 09/17/21] cetirizine 10 mg capsule 10 mg PO HS #30 caps 11/19/20 [Rx Confirmed 09/17/21] Fasenra 30 mg/mL subcutaneous syringe (benralizumab) 30 mg subcut Q8W #1 mL 12/12/20 [Rx Confirmed 09/17/21] montelukast 10 mg tablet 10 mg PO QPM #30 tabs 02/05/21 [Rx Confirmed 09/17/21] prednisone 10 mg tablet 10 mg PO QDAY PRN 05/29/21 [History Confirmed 09/17/21] albuterol sulfate 90 mcg/actuation aerosol inhaler (Ventolin HFA) 2 puff inhalation Q4H PRN shortness of breath or wheezing #1 device 08/07/21 [Rx Confirmed 09/17/21] Office Procedures Injections Procedure performed by: Carla Moe Lot number: [id number] Seed Potato 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 Patient tolerated treatment well. Patient shows no signs of adverse reaction. Reviewed signs and symptoms of reaction. Patient instructed to call the office with new or worsening symptoms. Patient advised to report to the emergency department during after hours if necessary. Patient departed from the office with no signs of distress. Office Meds benralizumab Performing Provider: Darrick Kramer MD Administered by: Carla Moe on 09/17/21 09:06 Dose Route Admin Location Lot Number Expiration Date NDC Manufactu rer 30 mg subcut Rt Deltoid [id number] 12/17/22 8122-8080-12 [employer] 09/17/21 1428 <Electronically signed by Darrick Kramer MD> Date Darrick Kramer MD Cosigner Signature: Date (if applicable) CC: Elin Reynolds DO Work Phone: Start: 09-16-[address] Elin Reynolds Work Phone: Start: 09-16-2021 End: 09-17-2021 Procedure Note: See Note; NOTES: [facility] [place] Imaging Services [address] [place] [id number] SCRN MAMM (CAD)W/ROB BILAT MR#: [id number] Acct: [id number] Name: LETY SPENCER Rep #: [id number] : 1955 F 66 From: Yusuf Post MD PCP: Dr. Elin Reynolds, DO Status: REG CLI Study: SCRN MAMM (CAD)W/ROB BILAT Date of Exam: 03/09 Exam# [id number] Ordering Dr: Elin Reynolds DO MAMMOGRAPHY - BILATERAL SCREENING 3-D TOMOSYNTHESIS REASON FOR EXAM: Female, 66 years old. Routine screening PERTINENT HISTORY: No significant family history, previous right breast biopsy. TECHNIQUE: 2-D mammograms and 3-D Tomosynthesis of the breast (s) were performed. CAD was performed. COMPARISON: 09/11/2020 FINDINGS: The breast composition is composed of scattered fibroglandular density. Scattered benign calcifications are seen. No dense spiculated masses or suspicious microcalcifications are identified. No architectural distortion is identified. There is no skin thickening or retraction. There has been no significant change since the prior study. BI/SCRN MAMM (CAD)W/ROB BILAT IMPRESSION: No mammographic signs of malignancy. Routine yearly mammograms recommended. ASSESSMENT CATEGORY: BIRADS Category 2: Benign. A letter regarding these results will be sent to the patient by the facility within 30 days. FOLLOW UP RECOMMENDATION: Yearly follow up mammogram recommended. (A) Approximately 10% of breast cancers are not detected by mammography. A normal mammogram should not delay biopsy of a clinically suspicious abnormality. Electronically Signed: Armin Post MD at 14:57 EDT Reading Location ID and State: [address] [place] [address] , Service support , CC: Dr. Elin Reynolds DO Clinical Biostatistics Director: Signed Elin Reynolds DO Work Phone: Start: 08-07-2021 End: 08-07-2021 Comments: See Note; NOTES: [facility] Pulmonary Medicine of [address] [place] [address] OFFICE VISIT Date of Service: 08/07/21 MR#: [id number] Acct: [id number] Name: LETY SPENCER Rep #: [id number] : 1955 Provider: MOLLY Oliveira Age/Sex: 66/F Location: [facility] Status: Signed Assessment and Plan Assessment and Plan (1) Asthma: Status: Chronic Qualifiers: Asthma severity: severe Asthma persistence: persistent Asthma complication type: uncomplicated Qualified Code(s): J45.50 - Severe persistent asthma, uncomplicated (2) Seasonal allergic rhinitis: Status: Chronic Qualifiers: Allergic rhinitis trigger: pollen Qualified Code(s): J30.1 - Allergic rhinitis due to pollen Medications: Refilled albuterol sulfate 90 mcg/actuation (Ventolin HFA) 2 puffs inhalation Q4H PRN 1 device 6RF shortness of breath or wheezing Plan No signs of exacerbation of asthma today. No change in maintenance medications, including Fasenra. No additional testing at this time. Contact the office with any signs of new or worsening symptoms. Follow-up in [address] Leblanc. Plan Details Follow Up: 6 Months (DMB) HPI 6 M FU Chief Complaint: Routine follow-up HPI Comments Details: This patient presents to the office today to follow-up on her severe persistent asthma complicated by seasonal allergies. She is ambulatory and currently on room air. She has not been seen in the ED or urgent care for any respiratory illnesses since her last office visit. She has not required any antibiotics or prednisone for any breathing problems. She maintains compliance with the use of Fasenra bimonthly injections. Since starting the Fasenra she no longer needs to use the steroid or nasal spray or the steroid oh inhaler. She continues compliance with cetirizine daily and Singulair daily. She routinely uses her albuterol rescue inhaler once every morning. She denies any difficulty with shortness of breath whatsoever. She denies any cough, sputum production or hemoptysis. She is not had any wheezing, chest tightness, chest pain or palpitations. She also denies any fever, chills or body aches. She states that overall she is really good. Intake Vital Signs 02/05/21 05:59 07/23/21 09:10 08/07/21 08:53 08/07/21 09:18 Height 5 ft 4 in 5 ft 4 in 5 ft 4 in 5 ft 4 in Weight: 207 lb 204 lb 4 oz BMI 35.5 35.0 BP 133/74 H 152/83 H Blood Pressure Location Rt brachial Rt brachial Position Sitting Sitting Respiration 17 16 Pulse 86 99 Pulse Source Monitor Monitor Temp 97.1 F L 97.4 F L Temperature Source Temporal Artery Pulse Oximetry (%) 97 97 Oxygen Delivery Method room air room air Intake Visit Reasons: 6 M FU Chief Complaint: Fasenra Injection Allergies buprenorphine [From Butrans] Allergy (Mild, Verified 08/07/21 09:21) Hives terbinafine Allergy (Mild, Verified 08/07/21 09:21) Rash codeine Allergy (Verified 08/07/21 09:21) Unknown nortriptyline Adverse Reaction (Mild, Verified 08/07/21 09:21) Upset Stomach omeprazole Adverse Reaction (Mild, Verified 08/07/21 09:21) Diarrhea Penicillins Adverse Reaction (Mild, Verified 08/07/21 09:21) yeast infection naproxen [From Naprosyn] Adverse Reaction (Verified 08/07/21 09:21) gi upset nortriptyline HCl [From Pamelor] Adverse Reaction (Verified 08/07/21 09:21) Upset Stomach Medications hydrochlorothiazide 25 mg tablet 12.5 mg PO DAILY diuretic/water pill 11/05/15 [History Confirmed 08/07/21] pantoprazole 40 mg tablet,delayed release 40 mg PO DAILY gerd 11/05/15 [History Confirmed 08/07/21] simvastatin 40 mg tablet 40 mg PO QHS cholesterol 11/05/15 [History Confirmed 08/07/21] lisinopril 10 mg tablet 10 mg PO QHS blood pressure 07/09/17 [History Confirmed 08/07/21] benzonatate 200 mg capsule 200 mg PO TID PRN cough #90 caps 04/19/18 [Rx Confirmed 08/07/21] fluticasone propionate 50 mcg/actuation nasal spray,suspension (Flonase Allergy Relief) 2 spray intranasal DAILY #18.2 grams 07/20/18 [Rx Confirmed 08/07/21] albuterol sulfate 2.5 mg (3 mL) inhalation Q4H PRN Sob /Or Wheezing #180 vials 04/21/19 [Rx Confirmed 08/07/21] amitriptyline 50 mg tablet 50 mg PO QHS sleep 06/25/19 [History Confirmed 08/07/21] nebulizers #1 ea 04/02/20 [Rx Confirmed 08/07/21] metformin 500 mg tablet 500 mg PO BID 08/07/20 [History Confirmed 08/07/21] zolpidem 10 mg tablet (Ambien) 10 mg PO QHS PRN Sleep 10/05/20 [History Confirmed 08/07/21] cetirizine 10 mg capsule 10 mg PO HS #30 caps 11/19/20 [Rx Confirmed 08/07/21] Fasenra 30 mg/mL subcutaneous syringe (benralizumab) 30 mg subcut Q8W #1 mL 12/12/20 [Rx Confirmed 08/07/21] montelukast 10 mg tablet 10 mg PO QPM #30 tabs 02/05/21 [Rx Confirmed 08/07/21] prednisone 10 mg tablet 10 mg PO QDAY PRN 05/29/21 [History Confirmed 08/07/21] albuterol sulfate 90 mcg/actuation aerosol inhaler (Ventolin HFA) 2 puff inhalation Q4H PRN shortness of breath or wheezing #1 device 08/07/21 [Rx Confirmed 08/07/21] PFSH Medical History Asthma Atherosclerosis of coronary artery bypass graft of [place] heart with angina pectoris Back pain, sacroiliac 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 Candidiasis of mouth COVID-19 virus detected (10/04/20) Essential hypertension Excessive sweating Exercise-induced bronchospasm GERD (gastroesophageal reflux disease) History of TIA (transient ischemic attack) (2006) Hyperlipidemia Obesity Seasonal allergic rhinitis Type 2 diabetes mellitus Surgical History History of back surgery History of D C History of hysterectomy History of left heart catheterization (05/27/07) History of right breast biopsy History of tonsillectomy History of tubal ligation Family History Mother Anxiety Hypertension kidney/renal disease High cholesterol Brother Heart disease Cancer Bladder Cancer CAD (coronary artery disease) Father Heart disease Myocardial infarction, Onset Age: 43 CAD (coronary artery disease) Brother CAD (coronary artery disease) Social History second hand exposure: No alcohol intake: never substance use type: does not use caffeine: No what type of physical activity do you participate in: none Exam Const Constitutional: Positive conversant, cooperative, in no acute respiratory distress, healthy appearing, well developed, well nourished, good hygiene and obese Head Head: Yes normocephalic and Yes atraumatic Eyes Eye: Positive clear conjunctiva; Negative nystagmus Ears Ear: Positive hearing normal and external ears normal; Negative hard of hearing Nose Nose: Yes external nose normal Neck Neck: Positive normal visual inspection, full ROM and trachea midline Chest Wall Chest: Positive normal inspection of the chest and symmetric chest movement; Negative increased A/P diameter Resp lung sounds: Positive clear to auscultation, good air exchange, normal expiratory time and normal respiratory effort; Negative diminished lung sounds, wheezes, rhonchi or rales Cardio Cardiac: Positive regular rate, regular rhythm, S1 normal and S2 normal; Negative murmur GI GI: Positive normal to inspection and obese; Negative distended Genitourinary: Positive deferred Musc Musculoskeletal: Positive steady gait and ROM normal; Negative kyphosis or scoliosis Skin Pulmonary Skin Exam: Positive intact; Negative lesion, rash or ulcers Neuro Neurologic: Yes no focal neuro deficits, Yes conversant, Yes cooperative, Yes normal cognition, Yes normal coordination, Yes normal concentration and Yes understands questions Psych Appearance: Positive grossly normal, eye contact and well kempt Mental Status: Positive mental status grossly normal Mood: Positive congruent mood Affect: Positive normal affect Coding Level of Care Code Off vis,est,level 3 Diagnoses Asthma J45.50 Asthma severity: severe Asthma persistence: persistent Asthma complication type: uncomplicated Seasonal allergic rhinitis J30.1 Allergic rhinitis trigger: pollen 08/07/21 1302 <Electronically signed by Roya BARNES> Date Roya BARNES Cosigner Signature: Date (if applicable) CC: Dr. Elin Reynolds, DO Elin Reynolds DO Work Phone: Start: 07-23-2021 End: 07-23-2021 Comments: See Note; NOTES: [place] [id number] AL[place] [address] OFFICE VISIT Date of Service: 07/23/21 MR#: [id number] Acct: [id number] Patient: LETY SPENCER Rep #: [id number] : 1955 Provider: MOLLY Oliveira Age/Sex: 66/F Location: [facility] [place], [place].[facility] Status: Signed Intake Vital Signs 07/23/21 09:10 Height 5 ft 4 in Weight: 207 lb BMI 35.5 BP 133/74 H Blood Pressure Location Rt brachial Position Sitting Respiration 17 Pulse 86 Pulse Source Monitor Temp 97.1 F L Temp Source Temporal Pulse Oximetry (%) 97 Oxygen Delivery Method room air Intake Visit Reasons: Injection 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 Accompanied by: Self Is patient in pain?: No Allergies buprenorphine [From Butrans] Allergy (Mild, Verified 05/29/21 09:54) Hives terbinafine Allergy (Mild, Verified 05/29/21 09:54) Rash codeine Allergy (Verified 05/29/21 09:54) Unknown nortriptyline Adverse Reaction (Mild, Verified 05/29/21 09:54) Upset Stomach omeprazole Adverse Reaction (Mild, Verified 05/29/21 09:54) Diarrhea Penicillins Adverse Reaction (Mild, Verified 05/29/21 09:54) yeast infection naproxen [From Naprosyn] Adverse Reaction (Verified 05/29/21 09:54) gi upset nortriptyline HCl [From Pamelor] Adverse Reaction (Verified 05/29/21 09:54) Upset Stomach Office Procedures Injections Procedure performed by: Carla Moe Site of injection: Sub-Q Medication Given: Yes Additional Details: Patient is alert and responds appropriately. 30mg/1mL of Fasenra administered today, patient tolerated well. No acute distress noted. Office Meds benralizumab Performing Provider: Roya Oliveira NP, DISHTANK OPERATOR-C Administered by: Carla Moe on 07/23/21 08:56 Dose Route Admin Location Lot Number Expiration Date NDC Manufactu rer 30 mg subcut Lt Deltoid [id number] 08/16/22 0688-2293-92 ASTRAZENECA 07/23/21 1207 <Electronically signed by Roya BARNES> Date Roya Oliveira NP DISHTANK OPERATORJeana Cosigner Signature: Date (if applicable) CC: Elin Reynolds DO Work Phone: Start: 05-29-2021 End: 05-29-2021 Comments: See Note; NOTES: [facility] [address] [place] [address] OFFICE VISIT Date of Service: 05/29/21 MR#: [id number] Acct: [id number] Name: LETY SPENCER Rep #: [id number] : 1955 Provider: ATUL Patterson Age/Sex: 66/F Location: [facility] [place], [place] Status: Signed HPI HPI History of Present Illness Details: 89-year old lady with no previous documented cardiac history who presents with palpitations and dyspnea on exertion. She also has a history of hypertension and hyperlipidemia and a strong family history of coronary artery disease. She had undergone a left heart catheterization in 2007 demonstrating a 30% LAD stenosis, 50% back stenosis and 30% right coronary artery stenosis. She subsequently underwent a dobutamine stress echo in 2010 demonstrating no evidence of ischemia and in 2018 had a pharmacologic stress test demonstrating no evidence of ischemia. She had complained of multiple episodes of palpitations as well as dyspnea on exertion. She also had episodes of sweating. She did contract Covid in September of this year and was not vaccinated. She received a monoclonal antibody. She does have a strong family hx of CAD. She notes that she is doing better. Her sweating episodes improved in addition to her SOB. She does note have any CP/heaviness/tightness. She does not have any lightheadedness/dizziness. She does not have any palpitations. She does not have any edema. She does try to keep herself as active as she can Intake Vital Signs 05/29/21 09:53 Height 5 ft 4 in Weight: 205 lb BMI 35.2 BP 112/76 Blood Pressure Location Lt brachial Position Sitting Respiration 18 Pulse 88 Pulse Source Monitor Pulse Oximetry (%) 96 Intake Visit Reasons: 6 M FU 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 Required: No Accompanied by: no one Is patient in pain?: No Allergies buprenorphine [From Butrans] Allergy (Mild, Verified 05/29/21 09:54) Hives terbinafine Allergy (Mild, Verified 05/29/21 09:54) Rash codeine Allergy (Verified 05/29/21 09:54) Unknown nortriptyline Adverse Reaction (Mild, Verified 05/29/21 09:54) Upset Stomach omeprazole Adverse Reaction (Mild, Verified 05/29/21 09:54) Diarrhea Penicillins Adverse Reaction (Mild, Verified 05/29/21 09:54) yeast infection naproxen [From Naprosyn] Adverse Reaction (Verified 05/29/21 09:54) gi upset nortriptyline HCl [From Pamelor] Adverse Reaction (Verified 05/29/21 09:54) Upset Stomach Medications hydrochlorothiazide 12.5 mg PO DAILY 11/05/15 [History Confirmed 05/29/21] pantoprazole 40 mg PO DAILY 11/05/15 [History Confirmed 05/29/21] simvastatin 40 mg PO QHS 11/05/15 [History Confirmed 05/29/21] lisinopril 10 mg PO QHS 07/09/17 [History Confirmed 05/29/21] benzonatate 200 mg capsule 200 mg PO TID PRN #90 cap 04/19/18 [Rx Confirmed 05/29/21] fluticasone propionate 50 mcg/actuation nasal spray,suspension 2 spray INTRANASAL DAILY #18.2 g 07/20/18 [Rx Confirmed 05/29/21] albuterol sulfate 2.5 mg INHALATION Q4H PRN #180 vial 04/21/19 [Rx Confirmed 05/29/21] amitriptyline 50 mg PO QHS 06/25/19 [History Confirmed 05/29/21] benralizumab 30 mg/mL subcutaneous syringe 30 mg SC Q8W 30 Days #1 ml 01/02/20 [Rx Confirmed 05/29/21] nebulizers #1 ea 04/02/20 [Rx Confirmed 05/29/21] metformin 500 mg tablet 500 mg PO BID 08/07/20 [History Confirmed 05/29/21] zolpidem [Ambien] 10 mg PO QHS PRN 10/05/20 [History Confirmed 05/29/21] cetirizine 10 mg capsule 10 mg PO HS #30 cap 11/19/20 [Rx Confirmed 05/29/21] Fasenra 30 mg/mL subcutaneous syringe 30 mg SC Q8W #1 ml NS 12/12/20 [Rx Confirmed 05/29/21] albuterol sulfate 90 mcg/actuation aerosol inhaler 2 puff INHALATION Q4H PRN #1 device 02/05/21 [Rx Confirmed 05/29/21] montelukast 10 mg tablet 10 mg PO QPM #30 tab 02/05/21 [Rx Confirmed 05/29/21] prednisone 10 mg tablet 10 mg PO QDAY PRN tab 05/29/21 [History] PFSH Medical History Asthma Atherosclerosis of coronary artery bypass graft of [place] heart with angina pectoris Back pain, sacroiliac 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 Candidiasis of mouth COVID-19 virus detected (10/04/20) Essential hypertension Excessive sweating Exercise-induced bronchospasm GERD (gastroesophageal reflux disease) History of TIA (transient ischemic attack) (2006) Hyperlipidemia Obesity Seasonal allergic rhinitis Type 2 diabetes mellitus Surgical History History of back surgery History of D C History of hysterectomy History of left heart catheterization (05/27/07) History of right breast biopsy History of tonsillectomy History of tubal ligation Family History Mother Anxiety Hypertension kidney/renal disease High cholesterol Brother Heart disease Cancer Bladder Cancer CAD (coronary artery disease) Father Heart disease Myocardial infarction, Onset Age: 43 CAD (coronary artery disease) Brother CAD (coronary artery disease) Social History second hand exposure: No alcohol intake: never substance use type: does not use caffeine: No what type of physical activity do you participate in: none ROS Const Const: Negative for fatigue, weakness, headache(s), frequent falls, excessive sweating, weight gain or weight loss Eyes Eyes: Negative for blind spots, loss of peripheral vision, transient loss of vision, blurry vision, change in vision or double vision ENT ENT: Negative for headache(s), dizziness, tinnitus, Nosebleed/epistaxis or balance problems Cardio Chest Pain: No Palpitations: No Edema: None Muscle aches with walking: None Resp Respiratory: Negative for SOB with activity, SOB at rest, SOB orthopnea SOB lying down or Cough GI GI: Negative nausea, vomiting, heartburn, bloating, vomiting blood/hematemesis, bright, red blood in stools or black,tarry stools : Negative for hematuria Musc Musc: Negative for muscle aches/ myalgia, muscle weakness, joint pain or balance problems Skin Skin: Negative rash or wounds Neuro Neuro: Negative for dizziness, lightheadedness, near syncope, syncope, orthostatic symptoms, frequent falls, headache(s), weakness, confusion, memory loss, restless legs, blurry vision or double vision Travis Hematologic/Lymphatic: Negative for easy bleeding or easy bruising Endo Endo: Negative for fatigue, cold intolerance, heat intolerance or excessive sweating Psych Psych: Negative for anxiety or depression Allergy Allergy/Immunology: Negative for rash Cardiology Exam Const Appearance: cooperative, healthy appearing, no acute distress, well developed and well groomed Nutritional Appearance: average body habitus and well nourished Orientation: alert, awake and oriented x3 Head Head: normal to inspection, normocephalic and atraumatic Ears: hearing grossly normal bilaterally and external ears normal Nose: external nose normal, nares normal, nasal mucous membranes and turbinates normal, septum normal and no nasal discharge Face and Sinus: face symmetric Mouth: oral mucosae normal, tongue normal, oropharynx normal and moist mucous membranes Teeth and gingiva: dentition normal Throat: posterior oropharynx normal, tonsils normal and uvula midline Eyes General: appearance normal, both eyes and all related structures Eyelids: eyelids normal Conjunctivae: conjunctivae normal Pupils: PERRL, normal by confrontation and accommodation normal EOM: EOM intact bilaterally Neck Neck: normal visual inspection, trachea midline and no JVD JVD: +5 Carotids: normal carotid upstroke and bounding pulses Chest Chest inspection: normal inspection of the chest, symmetric chest movement and normal respiratory effort Auscultation: Bilateral: Clear to Auscultation Cardio Palpation: normal PMI Rate: regular rate Rhythm: regular rhythm Heart sounds: S1 normal, S2 normal and normal, physiologic split S2; Negative rub, gallop or murmur GI GI: normal to inspection, soft, no hepatosplenomegaly and bowel sounds present Neuro General: patient alert, patient awake, patient oriented x3, gait normal, moves all extremities and no focal sensory deficit Skin Skin: no rashes or lesions noted Extremities Pulses: Normal: Right Femoral Pulse, Left Femoral Pulse, Right Dorsalis Pedis Pulse, Left Dorsalis Pedis Pulse, Right Posterior Tibial Pulse, Left Posterior Tibial Pulse, Right Radial Pulse and Left Radial Pulse Lower Extremity Edema: None: Bilateral Musculoskel Musculoskeletal: No joint tenderness Psych Psychological: normal affect Supplemental Info Supplemental Information Pharmacologic myocardial perfusion stress test 2020: 65-year-old lady with a history of cardiac dysrhythmia. Stress protocol: Resting EKG demonstrates normal sinus rhythm with a rate of 83 bpm normal intervals are noted resting blood pressure is 126/78 mmHg. 0.4 mg of regadenoson was infused. Protocol followed by rapid rapid venous saline flush injection continuous EKG monitoring was performed. Maximum heart rate attained was 116 bpm which was 73% of maximum predicted heart rate the maximum workload was 1 metabolic equivalents. At rest there were no ST or T wave changes noted to suggest abnormal flow reserve and at peak infusion nonspecific ST changes were noted with did not meet the criteria for ischemia the peak blood pressure was 142/80 mmHg. Myocardial perfusion protocol. 11.9 mCi of technetium 99m sestamibi was injected at rest. 0.4 mg of regadenoson was infused. Protocol. At peak infusion 34.3 mCi of technetium 99m sestamibi was injected stress images were obtained stress and rest images were reconstructed and compared in the short axis vertical long horizontal long axis. Gated images were also obtained Perfusion SPECT analysis: Review of the stress images demonstrate normal uptake of tracer noted in all areas of the myocardium. The resting images demonstrate normal uptake of tracer noted in all areas of the myocardium. No areas of reversibility are noted suggest ischemia no previous infarct is noted. Conclusion: Normal pharmacologic myocardial perfusion stress test. Preserved ejection fraction. Echocardiogram 2020: Normal LV size. Left ventricular systolic function is normal. The estimated ejection fraction is 60 %. Stage 1 diastolic dysfunction. Labs: No Data to Display Diagnostics: Electrocardiogram Echocardiogram Stress Test NM Stress Test Abdomen US Pulmonary: No Data to Display Assessment and Plan Assessment and Plan (1) Essential hypertension: Status: Chronic Plan - Destiny Britton PA, PA: Blood pressure is at goal. They will continue with lisinopril and HCTZ. This is managed by PCP (2) Hyperlipidemia: Status: Chronic Plan - Destiny POLLARD, PA: This is managed by PCP, she will continue with moderate intensity statin (3) Atherosclerosis of coronary artery bypass graft of [place] heart with angina pectoris: Status: Acute Comment: non obstructive [facility] 2007 Plan - Destiny POLLARD, PA: Reviewed recent stress test, reviewed risk factor and lifestyle changes to help decrease her risk of CAD with with family hx of premature CAD. She would like to follow annually. 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 Elin Reynolds, DO Elin Reynolds DO Work Phone: Start: 05-28-2021 End: 05-28-2021 Comments: See Note; NOTES: [facility] [address] [place] [address] [place] [address] OFFICE VISIT Date of Service: 05/28/21 MR#: [id number] Acct: [id number] Patient: LETY SPENCER Rep #: [id number] : 1955 Provider: MOLLY Oliveira Age/Sex: 66/F Location: [facility] [place], [place] Status: Signed Intake Vital Signs 05/28/21 09:06 BP 129/73 H Blood Pressure Location Rt brachial Position Sitting Respiration 16 Pulse 92 Pulse Source Monitor Temp 97.8 F Temp Source Temporal Pulse Oximetry (%) 96 Oxygen Delivery Method room air Intake Visit Reasons: Injection Chief Complaint: Monoclonal Antibody Infusion Allergies buprenorphine [From Butrans] Allergy (Mild, Verified 04/02/21 09:07) Hives terbinafine Allergy (Mild, Verified 04/02/21 09:07) Rash codeine Allergy (Verified 04/02/21 09:07) Unknown nortriptyline Adverse Reaction (Mild, Verified 04/02/21 09:07) Upset Stomach omeprazole Adverse Reaction (Mild, Verified 04/02/21 09:07) Diarrhea Penicillins Adverse Reaction (Mild, Verified 04/02/21 09:07) yeast infection naproxen [From Naprosyn] Adverse Reaction (Verified 04/02/21 09:07) gi upset nortriptyline HCl [From Pamelor] Adverse Reaction (Verified 04/02/21 09:07) Upset Stomach Office Meds benralizumab Performing Provider: Roya Oliveira NP, DISHTANK OPERATOR-C Administered by: Carisa Chappell on 05/28/21 09:05 Dose Route Admin Location Lot Number Expiration Date NDC Manufactu rer 30 mg subcut rt arm [id number] 04/17/23 7714-2428-57 ASTRAZENECA 05/28/21 1115 <Electronically signed by Roya Oliveira NP DISHTANK OPERATOR-C> Date Roya Oliveira NP DISHTANK OPERATOR-C Cosigner Signature: Date (if applicable) CC: Elin Reynolds DO Work Phone: Start: 04-02-2021 End: 04-02-2021 Comments: See Note; NOTES: [facility] [place] [address] OFFICE VISIT Date of Service: 04/02/21 MR#: [id number] Acct: [id number] Patient: LETY SPENCER Yuly Rep #: [id number] : 1955 Provider: MOLLY Oliveira Age/Sex: 66/F Location: [facility] [place], [place].[facility] Status: Signed Intake Vital Signs 04/02/21 08:20 BP 132/71 H Blood Pressure Location Rt brachial Position Sitting Respiration 16 Pulse 85 Pulse Source Monitor Temp 97.8 F Temp Source Tympanic Pulse Oximetry (%) 98 Oxygen Delivery Method room air Intake Visit Reasons: Injection Allergies buprenorphine [From Butrans] Allergy (Mild, Verified 04/02/21 09:07) Hives terbinafine Allergy (Mild, Verified 04/02/21 09:07) Rash codeine Allergy (Verified 04/02/21 09:07) Unknown nortriptyline Adverse Reaction (Mild, Verified 04/02/21 09:07) Upset Stomach omeprazole Adverse Reaction (Mild, Verified 04/02/21 09:07) Diarrhea Penicillins Adverse Reaction (Mild, Verified 04/02/21 09:07) yeast infection naproxen [From Naprosyn] Adverse Reaction (Verified 04/02/21 09:07) gi upset nortriptyline HCl [From Pamelor] Adverse Reaction (Verified 04/02/21 09:07) Upset Stomach Medications hydrochlorothiazide 12.5 mg PO DAILY 11/05/15 [History Confirmed 04/02/21] pantoprazole 40 mg PO DAILY 11/05/15 [History Confirmed 04/02/21] simvastatin 40 mg PO QHS 11/05/15 [History Confirmed 04/02/21] lisinopril 10 mg PO QHS 07/09/17 [History Confirmed 04/02/21] benzonatate 200 mg capsule 200 mg PO TID PRN #90 cap 04/19/18 [Rx Confirmed 04/02/21] fluticasone propionate 50 mcg/actuation nasal spray,suspension 2 spray INTRANASAL DAILY #18.2 g 07/20/18 [Rx Confirmed 04/02/21] albuterol sulfate 2.5 mg INHALATION Q4H PRN #180 vial 04/21/19 [Rx Confirmed 04/02/21] amitriptyline 50 mg PO QHS 06/25/19 [History Confirmed 04/02/21] benralizumab 30 mg/mL subcutaneous syringe 30 mg SC Q8W 30 Days #1 ml 01/02/20 [Rx Confirmed 04/02/21] nebulizers #1 ea 04/02/20 [Rx Confirmed 04/02/21] metformin 500 mg tablet 500 mg PO BID 08/07/20 [History Confirmed 04/02/21] semaglutide 1 mg/dose (2 mg/1.5 mL) subcutaneous pen injector 1 mg SUBCUT MO 08/07/20 [History Confirmed 04/02/21] prednisone 10 mg tablet 10 mg PO QDAY #30 tab 10/04/20 [Rx Confirmed 04/02/21] zolpidem [Ambien] 10 mg PO QHS PRN 10/05/20 [History Confirmed 04/02/21] cetirizine 10 mg capsule 10 mg PO HS #30 cap 11/19/20 [Rx Confirmed 04/02/21] Fasenra 30 mg/mL subcutaneous syringe 30 mg SC Q8W #1 ml NS 12/12/20 [Rx Confirmed 04/02/21] albuterol sulfate 90 mcg/actuation aerosol inhaler 2 puff INHALATION Q4H PRN #1 device 02/05/21 [Rx Confirmed 04/02/21] montelukast 10 mg tablet 10 mg PO QPM #30 tab 02/05/21 [Rx Confirmed 04/02/21] Office Procedures Injections Procedure performed by: Chanell Billy Office Meds benralizumab Performing Provider: Roya Oliveira NP, DISHTANK OPERATOR-C Administered by: Chanell Billy on 04/02/21 08:21 Dose Route Admin Location Lot Number Expiration Date NDC Manufactu rer 30 mg subcut RIGHT ARM [id number] 03/18/22 7622-3959-11 ASTRAZENECA 04/02/21 1030 <Electronically signed by Roya Oliveira DISHTANK OPERATOR DISHTANK OPERATOR-C> Date Roya Oliveira NP DISHTANK OPERATOR-C Cosigner Signature: Date (if applicable) CC: Dr. Elin Reynolds, DO Elin Reynolds DO Work Phone: Start: 02-05-2021 End: 02-05-2021 Comments: See Note; NOTES: [facility] [address] [place] [address] OFFICE VISIT Date of Service: 02/05/21 MR#: [id number] Acct: [id number] Name: LETY SPENCER Rep #: [id number] : 1955 Provider: Dr. Ayush Leblanc DO Age/Sex: 65/F [place] [facility] [place] Status: Signed Assessment and Plan Assessment and Plan (1) Asthma: Status: Chronic Qualifiers: Asthma complication type: uncomplicated Asthma persistence: persistent Asthma severity: severe Qualified Code(s): J45.50 - Severe persistent asthma, uncomplicated Plan - Dr. Ayush Leblanc, DO: The patient remains symptomatically well controlled. Continue current inhaler regimen along with Fasenra injections. The patient was advised to contact our office with any worsening in her breathing quality and/or increasing reliance on her short acting beta agonist. Plan Details Other Medications: Refilled: albuterol sulfate 90 mcg/actuation (Ventolin HFA) 2 puffs inhalation Q4H PRN 1 device 6RF shortness of breath or wheezing montelukast 10 mg PO QPM 30 tabs 6RF Additional Comments: I spent 22 minutes today reviewing labs, records and history. Time includes coordination of care and interpretation of tests. This also includes time that I spent with the patient for the exam, formulation of treatment plan, patient education, as well as documenting clinical information. Follow Up: 6 Months HPI HPI Comments Details: The patient is a 65-year-old female who presents to the clinic today for a routine scheduled follow-up office visit. If you recall, I initially saw the patient in January 2016, after she presented to the clinic with an established asthma diagnosis. She was initially diagnosed sometime in her late 20s. She had been seen previously by a pulmonary provider at [facility] until 2008. She is a lifelong non-smoker. Current triggers for worsening of her breathing quality have included: Cold air and cigarette smoke exposure. She has a history of seasonal allergic rhinitis, as well. Pulmonary function testing completed in January 2016 showed the presence of a mild large airways obstructive ventilatory defect with an associated significant response to aerosolized bronchodilators. Repeat pulmonary function testing completed in December 2019 was grossly normal with stigmata of small airways disease. Today, the patient reports overall stability in her breathing quality. She has remained compliant with her inhaler regimen and continues to receive Fasenra injections. She has not experienced any recent exacerbations. She reported that she utilizes her rescue inhaler once every 2 weeks. She denies any fevers, chills or night sweats. She is up-to-date on her influenza vaccination. Intake Vital Signs 02/05/21 05:59 Height 5 ft 4 in Weight: 92.76 kg BP 118/78 Blood Pressure Location Lt brachial Position Sitting Respiration 16 Pulse 81 Pulse Source Monitor Temp 97.8 F Temperature Source Temporal Artery Pulse Oximetry (%) 98 Oxygen Delivery Method room air Intake Visit Reasons: 6 M FU Allergies buprenorphine [From Butrans] Allergy (Mild, Verified 11/28/20 08:32) Hives terbinafine Allergy (Mild, Verified 11/28/20 08:32) Rash codeine Allergy (Verified 11/28/20 08:32) Unknown nortriptyline Adverse Reaction (Mild, Verified 11/28/20 08:32) Upset Stomach omeprazole Adverse Reaction (Mild, Verified 11/28/20 08:32) Diarrhea Penicillins Adverse Reaction (Mild, Verified 11/28/20 08:32) yeast infection naproxen [From Naprosyn] Adverse Reaction (Verified 11/28/20 08:32) gi upset nortriptyline HCl [From Pamelor] Adverse Reaction (Verified 11/28/20 08:32) Upset Stomach PFSH Medical History Asthma Atherosclerosis of coronary artery bypass graft of [place] heart with angina pectoris Back pain, sacroiliac 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 Candidiasis of mouth COVID-19 virus detected (10/04/20) Essential hypertension Excessive sweating Exercise-induced bronchospasm GERD (gastroesophageal reflux disease) History of TIA (transient ischemic attack) (2006) Hyperlipidemia Obesity Seasonal allergic rhinitis Type 2 diabetes mellitus Surgical History History of back surgery History of D C History of hysterectomy History of left heart catheterization (05/27/07) History of right breast biopsy History of tonsillectomy History of tubal ligation Family History Mother Anxiety Hypertension kidney/renal disease High cholesterol Brother Heart disease Cancer Bladder Cancer CAD (coronary artery disease) Father Heart disease Myocardial infarction, Onset Age: 43 CAD (coronary artery disease) Brother CAD (coronary artery disease) Social History second hand exposure: No alcohol intake: never substance use type: does not use caffeine: No what type of physical activity do you participate in: none Review of Systems Resp Respiratory: Yes as per HPI Exam Const Constitutional: Positive conversant, cooperative, in no acute respiratory distress, well developed, well nourished, good hygiene and obese Head Head: Yes normocephalic and Yes atraumatic Eyes Eye: Positive clear conjunctiva; Negative nystagmus or scleral abnormality Ears Ear: Positive hearing normal and external ears normal Mouth Wearing a mask. Neck Neck: Positive normal visual inspection and trachea midline; Negative lymphadenopathy Chest Wall Chest: Positive symmetric chest movement Normal AP diameter. Resp lung sounds: Positive clear to auscultation and good air exchange; Negative wheezes, rhonchi or rales Cardio Cardiac: Positive regular rate, regular rhythm, S1 normal and S2 normal; Negative murmur, rub or gallop GI GI: Positive normal bowel sounds and obese Soft without distention Genitourinary: Positive deferred Musc Musculoskeletal: Positive steady gait Skin Pulmonary Skin Exam: Positive intact; Negative lesion, rash, ulcers or dermal atrophy Pulses Pulse: Yes Pedal pulses present: Extremities Extremities: No clubbing, No cyanosis and No edema Neuro Neurologic: Yes no focal neuro deficits, Yes conversant and Yes cooperative Lymph Lymphatic: No lymphadenopathy Psych Appearance: Positive grossly normal Mental Status: Positive mental status grossly normal Mood: Positive congruent mood Affect: Positive normal affect Coding Level of Care Code Off vis,est,level 3 Diagnoses Asthma J45.50 Asthma complication type: uncomplicated Asthma persistence: persistent Asthma severity: severe Time Spent (min) 02/05/21 0831 <Electronically signed by Ayush Leblanc DO> Date Ayush Leblanc DO Luis Armando Signature: Date (if applicable) CC: Elin Reynolds DO Work Phone: Start: 12-21-2020 End: 12-21-2020 Comments: See Note; NOTES: [facility] [address] [place] [address] OFFICE VISIT Date of Service: 12/21/20 MR#: [id number] Acct: [id number] Patient: LETY SPENCER Rep #: [id number] : 1955 Provider: MOLLY Oliveira Age/Sex: 65/F Location: [facility] [place] [place].[facility] Status: Signed Intake Vital Signs 12/21/20 10:10 BP 122/77 H Blood Pressure Location Lt brachial Position Sitting Respiration 18 Pulse 88 Pulse Source Monitor Temp 97.1 F L Temp Source Tympanic Pulse Oximetry (%) 97 Oxygen Delivery Method room air Intake Visit Reasons: Injection Allergies buprenorphine [From Butrans] Allergy (Mild, Verified 11/28/20 08:32) Hives terbinafine Allergy (Mild, Verified 11/28/20 08:32) Rash codeine Allergy (Verified 11/28/20 08:32) Unknown nortriptyline Adverse Reaction (Mild, Verified 11/28/20 08:32) Upset Stomach omeprazole Adverse Reaction (Mild, Verified 11/28/20 08:32) Diarrhea Penicillins Adverse Reaction (Mild, Verified 11/28/20 08:32) yeast infection naproxen [From Naprosyn] Adverse Reaction (Verified 11/28/20 08:32) gi upset nortriptyline HCl [From Pamelor] Adverse Reaction (Verified 11/28/20 08:32) Upset Stomach Office Meds benralizumab Performing Provider: Roya Oliveira NP, FALGUNIC Administered by: Carisa Chappell on 12/21/20 09:59 Dose Route Admin Location Lot Number Expiration Date ND Manufactu rer 30 mg subcut Lt Arm [id number] 12/17/21 2774-0525-26 ASTRAZENECA 12/21/20 1028 <Electronically signed by Roya Oliveira NP DISHTANK OPERATOR-C> Date Roya Oliveira NP DISHTANK OPERATOR-C Cosigner Signature: Date (if applicable) CC: Dr. Elin Reynolds, DO Elin Reynolds DO Work Phone: Start: 12-07-2020 End: 12-12-2020 Comments: See Note; NOTES: [facility] [address] [place] [address] MR#: [id number] Acct: [id number] Name: LETY SPENCER Yuly Rep #: [id number] : 1955 65 From: John Hester MD Primary Care: Dr. Elin Reynolds, DO Status: REG CLI Referring Dr: Sex: F C Stress Test Report Pharmacologic myocardial perfusion stress test. 65-year-old lady with a history of cardiac dysrhythmia. Stress protocol: Resting EKG demonstrates normal sinus rhythm with a rate of 83 bpm normal intervals are noted resting blood pressure is 126/78 mmHg. 0.4 mg of regadenoson was infused. Protocol followed by rapid rapid venous saline flush injection continuous EKG monitoring was performed. Maximum heart rate attained was 116 bpm which was 73% of maximum predicted heart rate the maximum workload was 1 metabolic equivalents. At rest there were no ST or T wave changes noted to suggest abnormal flow reserve and at peak infusion nonspecific ST changes were noted with did not meet the criteria for ischemia the peak blood pressure was 142/80 mmHg. Myocardial perfusion protocol. 11.9 mCi of technetium 99m sestamibi was injected at rest. 0.4 mg of regadenoson was infused. Protocol. At peak infusion 34.3 mCi of technetium 99m sestamibi was injected stress images were obtained stress and rest images were reconstructed and compared in the short axis vertical long horizontal long axis. Gated images were also obtained Perfusion SPECT analysis: Review of the stress images demonstrate normal uptake of tracer noted in all areas of the myocardium. The resting images demonstrate normal uptake of tracer noted in all areas of the myocardium. No areas of reversibility are noted suggest ischemia no previous infarct is noted. Conclusion: Normal pharmacologic myocardial perfusion stress test. Preserved ejection fraction. 12/07/20 1340 <Electronically signed by John Hester MD> Date John Hester MD CC: Dr. John Hester MD; Dr. Elin Reynolds DO Date Dictated: 12/07/201336 Date Transcribed: 12/07/201336 Clinical Biostatistics Director: [place] Signed Elin Reynolds DO Work Phone: Start: 12-07-2020 End: 12-07-2020 Comments: See Note; NOTES: [facility] [address] [place] [address] Echo Complete 12/07/20 0901 MR#: [id number] Acct: [id number] Name: LETY SPENCER Rep #: [id number] : 1955 65 From: John Hester MD Attending Dr: Dr. John Hester MD Status: [facility] Ordering Dr: John Hester MD Date: 12/07/20 Location: [facility] Sex: F C Admitted: Reason For Study: Arrhythmia Procedure This was a 2D Doppler, Color Flow transthoracic echocardiogram. Exam performed in department. Left Ventricle Normal LV size. Left ventricular systolic function is normal. The estimated ejection fraction is 60 %. Stage 1 diastolic dysfunction. No regional wall motion abnormalities noted. Right Ventricle Normal RV size. Normal systolic function. Atria Normal left atrium. Normal right atrium. Mitral Valve Normal mitral valve. Tricuspid Valve Normal tricuspid valve. Aortic Valve Trisinus/trileaflet aortic valve. Pulmonic Valve Normal pulmonic valve. Great Vessels Normal aortic root. The pulmonary artery is normal size. Normal inferior vena cava. Pericardium/Pleural No pericardial effusion. MMode/2D Measurements Calculations LVIDd: 3.6 cm IVSd: 1.0 cm Ao root diam: 2.8 cm LVIDs: 2.5 cm LVPWd: 1.1 cm RVDd: 2.5 cm FS: 28.7 % LAV(MOD-bp): 30.2 ml LVAd ap4: 21.0 cm2 LVAd ap2: 19.2 cm2 LAV(MOD-bp) Indexed: 15.6 ml/m2 LVLd ap4: 7.8 cm LVLd ap2: 7.6 cm LAV(MOD-sp2): 35.8 ml EDV(MOD-sp4): 46.8 ml EDV(MOD-sp2): 40.5 ml LAV(MOD-sp4): 24.3 ml EDV(sp4-el): 47.8 ml EDV(sp2-el): 41.2 ml LVAs ap4: 12.4 cm2 LVAs ap2: 11.0 cm2 LVLs ap4: 6.9 cm LVLs ap2: 6.7 cm ESV(MOD-sp4): 19.7 ml ESV(MOD-sp2): 15.8 ml ESV(sp4-el): 18.9 ml ESV(sp2-el): 15.3 ml EF(MOD-sp4): 57.8 % EF(MOD-sp2): 61.0 % EF(sp4-el): 60.4 % SV(MOD-sp4): 27.1 ml SV(MOD-sp2): 24.7 ml SV(sp4-el): 28.9 ml LA dimension(2D): 3.2 cm LA A4 area: 11.2 cm2 RA A4 area: 8.9 cm2 Doppler Measurements Calculations MV E max manny: 71.8 cm/sec Lat Peak E' Manny: 7.4 cm/sec Med Peak E' Manny: 5.8 cm/sec MV A max manny: 86.1 cm/sec E/E' lat: 9.7 E/E' med: 12.5 MV E/A: 0.83 Ao V2 max: 126.6 cm/sec LV V1 max: 89.8 cm/sec PA V2 max: 82.9 cm/sec Ao max P.4 mmHg LV V1 max P.2 mmHg ECHO/Echo Complete Interpretation Summary Normal LV size. Left ventricular systolic function is normal. The estimated ejection fraction is 60 %. Stage 1 diastolic dysfunction. _ Ordering Physician: John Hester Referring Physician: Elin Reynolds M.D. Performed By: Dolores Wood RDCS 12/07/20 1244 Date John Hester MD CC: Dr. John Hester MD; Dr. Elin Reynolds DO Date Dictated: 12/07/20900 Date Transcribed: 12/07/201243 Clinical Biostatistics Director: Signed Elin Reynolds DO Work Phone: Start: 11-28-2020 End: 12-07-2020 Comments: See Note; NOTES: [facility] [address] [place] [address] 12 Lead EKG performed by [facility] [place] [place] 11/28/20833 MR#: [id number] Acct: [id number] Name: LETY SPENCER Rep #: [id number] : 1955 65 From: John Hester MD Attending Dr: Dr. John Hester MD Status: DEP A MB Ordering Dr: John Hester MD Date: 11/28/20 Location: [facility] [place] Sex: F C Admitted: [facility] [place] [place]/ Lead EKG performed by [facility] [place] [place] Sinus Rhythm Low voltage in precordial leads. ABNORMAL 11/28/20 1635 <Electronically signed by John Hester MD> Date John Hester MD CC: Dr. Elin Reynolds DO Date Dictated: 11/28/20833 Date Transcribed: 11/28/20833 Clinical Biostatistics Director: [place] Signed Elin Reynolds DO Work Phone: Start: 11-28-2020 End: 12-12-2020 Comments: See Note; NOTES: [facility] [address] [place], [place] [address] OFFICE VISIT Date of Service: 11/28/20 MR#: [id number] Acct: [id number] Name: LETY SPENCER Rep #: [id number] : 1955 Provider: Dr. John Hester MD Age/Sex: 65/F Location: [facility] [place] [place] Status: Signed HPI HPI History of Present Illness Details: 65-year old lady with no previous documented cardiac history who presents with palpitations and dyspnea on exertion. She also has a history of hypertension and hyperlipidemia and a strong family history of coronary artery disease. She had undergone a left heart catheterization in 2007 demonstrating a 30% LAD stenosis, 50% back stenosis and 30% right coronary artery stenosis. She subsequently underwent a dobutamine stress echo in 2010 demonstrating no evidence of ischemia and in 2017 had a pharmacologic stress test demonstrating no evidence of ischemia. She complains of multiple episodes of palpitations as well as dyspnea on exertion. She did contract Covid in September of this year and was not vaccinated. She received a monoclonal antibody. She is here with concerns of a family history. She tells me that with little activity she feels very fatigued. Her physical exam here today is unremarkable her electrocardiogram demonstrates normal sinus rhythm with a rate of 99 bpm and low voltage only. Intake Vital Signs 11/28/20 08:31 Height 5 ft 4 in Weight: 197 lb Intake Visit Reasons: PALPS, PREV K KEISHA PT (SELF REF) Allergies buprenorphine [From Butrans] Allergy (Mild, Verified 11/28/20 08:32) Hives terbinafine Allergy (Mild, Verified 11/28/20 08:32) Rash codeine Allergy (Verified 11/28/20 08:32) Unknown nortriptyline Adverse Reaction (Mild, Verified 11/28/20 08:32) Upset Stomach omeprazole Adverse Reaction (Mild, Verified 11/28/20 08:32) Diarrhea Penicillins Adverse Reaction (Mild, Verified 11/28/20 08:32) yeast infection naproxen [From Naprosyn] Adverse Reaction (Verified 11/28/20 08:32) gi upset nortriptyline HCl [From Pamelor] Adverse Reaction (Verified 11/28/20 08:32) Upset Stomach Medications hydrochlorothiazide 12.5 mg PO DAILY 11/05/15 [History Confirmed 11/28/20] pantoprazole 40 mg PO DAILY 11/05/15 [History Confirmed 11/28/20] simvastatin 40 mg PO QHS 11/05/15 [History Confirmed 11/28/20] lisinopril 10 mg PO QHS 07/09/17 [History Confirmed 11/28/20] benzonatate 200 mg capsule 200 mg PO TID PRN #90 cap 04/19/18 [Rx Confirmed 11/28/20] fluticasone propionate 50 mcg/actuation nasal spray,suspension 2 spray INTRANASAL DAILY #18.2 g 07/20/18 [Rx Confirmed 11/28/20] albuterol sulfate 2.5 mg INHALATION Q4H PRN #180 vial 04/21/19 [Rx Confirmed 11/28/20] albuterol sulfate 90 mcg/actuation aerosol inhaler 2 puff INHALATION Q4H PRN #1 device 05/05/19 [Rx Confirmed 11/28/20] amitriptyline 50 mg PO QHS 06/25/19 [History Confirmed 11/28/20] benralizumab 30 mg/mL subcutaneous syringe 30 mg SC Q8W 30 Days #1 ml 01/02/20 [Rx Confirmed 11/28/20] nebulizers #1 ea 04/02/20 [Rx Confirmed 11/28/20] montelukast 10 mg tablet 10 mg PO QPM #30 tab 06/26/20 [Rx Confirmed 11/28/20] metformin 500 mg tablet 500 mg PO BID 08/07/20 [History Confirmed 11/28/20] semaglutide 1 mg/dose (2 mg/1.5 mL) subcutaneous pen injector 1 mg SUBCUT MO 08/07/20 [History Confirmed 11/28/20] prednisone 10 mg tablet 10 mg PO QDAY #30 tab 10/04/20 [Rx Confirmed 11/28/20] zolpidem [Ambien] 10 mg PO QHS PRN 10/05/20 [History Confirmed 11/28/20] cetirizine 10 mg capsule 10 mg PO HS #30 cap 11/19/20 [Rx Confirmed 11/28/20] Ejection fraction %: 60 to 64 PFSH Medical History Asthma Atherosclerosis of coronary artery bypass graft of [place] heart with angina pectoris Back pain, sacroiliac 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 Candidiasis of mouth COVID-19 virus detected (10/04/20) Essential hypertension Excessive sweating Exercise-induced bronchospasm GERD (gastroesophageal reflux disease) History of TIA (transient ischemic attack) (2006) Hyperlipidemia Obesity Seasonal allergic rhinitis Type 2 diabetes mellitus Surgical History History of back surgery History of D C History of hysterectomy History of left heart catheterization (05/27/07) History of right breast biopsy History of tonsillectomy History of tubal ligation Family History Mother Anxiety Hypertension kidney/renal disease High cholesterol Brother Heart disease Cancer Bladder Cancer CAD (coronary artery disease) Father Heart disease Myocardial infarction, Onset Age: 43 CAD (coronary artery disease) Brother CAD (coronary artery disease) Social History second hand exposure: No alcohol intake: never substance use type: does not use caffeine: No what type of physical activity do you participate in: none ROS Const Const: Positive for excessive sweating (occasionally with rapid palpitations); Negative for fatigue, weakness, headache(s), frequent falls or difficulty sleeping Eyes Eyes: Negative for loss of peripheral vision, transient loss of vision, blurry vision, double vision or tunnel vision ENT ENT: Negative for headache(s), dizziness, Nosebleed/epistaxis or balance problems Cardio Chest Pain: No Palpitations: Yes feels like its: fast and pounding Edema: None Muscle aches with walking: None Resp Respiratory: Negative for SOB with activity, SOB at rest, SOB orthopnea SOB lying down, Cough or paroxysmal nocturnal dyspnea GI GI: Negative nausea, vomiting, heartburn or black,tarry stools : Negative for hematuria Musc Musc: Negative for muscle aches/ myalgia, muscle weakness, joint pain or balance problems Skin Skin: Negative non-healing lesions, rash or unusual bruising Neuro Neuro: Negative for dizziness, lightheadedness, near syncope, syncope, orthostatic symptoms, frequent falls, headache(s), weakness, blurry vision, double vision or lack of coordination Travis Hematologic/Lymphatic: Negative for easy bleeding or easy bruising Endo Endo: Positive for excessive sweating (occasionally with rapid palpitations); Negative for fatigue or increased thirst/drinking Psych Psych: Negative for anxiety or depression Allergy Allergy/Immunology: Negative for hives and Negative for rash Cardiology Exam Const Appearance: cooperative, healthy appearing, no acute distress, well developed and well groomed Nutritional Appearance: average body habitus and well nourished Orientation: alert, awake and oriented x3 Head Head: normal to inspection, normocephalic and atraumatic Ears: hearing grossly normal bilaterally and external ears normal Nose: external nose normal, nares normal, nasal mucous membranes and turbinates normal, septum normal and no nasal discharge Face and Sinus: face symmetric Mouth: oral mucosae normal, tongue normal, oropharynx normal and moist mucous membranes Teeth and gingiva: dentition normal Throat: posterior oropharynx normal, tonsils normal and uvula midline Eyes General: appearance normal, both eyes and all related structures Eyelids: eyelids normal Conjunctivae: conjunctivae normal Pupils: PERRL, normal by confrontation and accommodation normal EOM: EOM intact bilaterally Neck Neck: normal visual inspection, trachea midline and no JVD JVD: +5 Carotids: normal carotid upstroke and bounding pulses Chest Chest inspection: normal inspection of the chest, symmetric chest movement and normal respiratory effort Auscultation: Bilateral: Clear to Auscultation Cardio Palpation: normal PMI Rate: regular rate Rhythm: regular rhythm Heart sounds: S1 normal, S2 normal and normal, physiologic split S2; Negative rub, gallop or murmur GI GI: normal to inspection, soft, no hepatosplenomegaly and bowel sounds present Neuro General: patient alert, patient awake, patient oriented x3, gait normal, moves all extremities and no focal sensory deficit Skin Skin: no rashes or lesions noted Extremities Pulses: Normal: Right Femoral Pulse, Left Femoral Pulse, Right Dorsalis Pedis Pulse, Left Dorsalis Pedis Pulse, Right Posterior Tibial Pulse, Left Posterior Tibial Pulse, Right Radial Pulse and Left Radial Pulse Lower Extremity Edema: None: Bilateral Musculoskel Musculoskeletal: No joint tenderness Psych Psychological: normal affect Assessment and Plan Assessment and Plan (1) Dyspnea on exertion: Status: Acute Plan - Dr. John Hester MD: She does have dyspnea on exertion and will need to exclude an anginal equivalent. She has been compliant with her other medications. I would like us to obtain an echocardiogram as well as some form of stress testing to make sure that this is not an anginal equivalent. (2) Essential hypertension: Status: Chronic Orders: Orders: 12 Lead EKG performed by [facility] [place] [place] Today Nuclear Stress Test - Chemical Today Plan - Dr. John Hester MD: Her blood pressure appears to be under good control at this time and I would not recommend any changes. (3) Hyperlipidemia: Status: Chronic Orders: Orders: 12 Lead EKG performed by [facility] [place] [place] Today Plan - Dr. John Hester MD: She does have a history of hyperlipidemia. We will continue with the current medical therapy. No other major changes will be made. (4) Intermittent palpitations: Status: Acute Orders: Orders: 12 Lead EKG performed by [facility] [place] [place] Today Echo Complete Today Plan - Dr. John Hester MD: She does have intermittent palpitations. It does not appear that these are significant arrhythmias. They are not frequent enough that I would think that a Holter monitor would be useful here. Depending on how the results of the stress above tests show we will make recommendations. Thank you for allowing me to participate in the care of your patient. Please don't hesitate to call if any issues arise. Plan Details Other Orders: Orders: 12 Lead EKG performed by [facility] [place] [place] Today E11.9, E66.9, J30.1, J45.50, J45.990, U07.1 Follow Up: 6 Months (kr) Coding Level of Care Code Off vis,new,level 4 Diagnoses Dyspnea on exertion R06.00 Essential hypertension I10 Hyperlipidemia E78.5 Intermittent palpitations R00.2 Coding Level of Care Code Off vis,new,level 4 Diagnoses Dyspnea on exertion R06.00 Essential hypertension I10 Hyperlipidemia E78.5 Intermittent palpitations R00.2 Supplemental Info Supplemental Information Labs: No Data to Display Diagnostics: Electrocardiogram Abdomen US Pulmonary: No Data to Display 11/28/20 1041 <Electronically signed by John Hester MD> Date John Hester MD Cosigner Signature: Date (if applicable) CC: Dr. Elin Reynolds, DO Elin Reynolds DO Work Phone: Start: 10-26-2020 End: 10-26-2020 Comments: See Note; NOTES: [facility] [address] [place] [address] OFFICE VISIT Date of Service: 10/26/20 MR#: [id number] Acct: [id number] Patient: LETY SPENCER Rep #: [id number] : 1955 Provider: MOLLY Oliveira Age/Sex: 65/F Location: [facility] [place] [place].[facility] Status: Signed Intake Vital Signs 10/26/20 10:03 BP 108/76 Blood Pressure Location Rt brachial Position Sitting Respiration 16 Pulse 93 Pulse Source Monitor Temp 96.5 F L Temp Source Tympanic Pulse Oximetry (%) 96 Oxygen Delivery Method room air Intake Visit Reasons: Injection Chief Complaint: Monoclonal Antibody Infusion Allergies buprenorphine [From Butrans] Allergy (Mild, Verified 10/05/20 08:50) Hives terbinafine Allergy (Mild, Verified 10/05/20 08:50) Rash codeine Allergy (Verified 10/05/20 08:50) Unknown nortriptyline Adverse Reaction (Mild, Verified 10/05/20 08:50) Upset Stomach omeprazole Adverse Reaction (Mild, Verified 10/05/20 08:50) Diarrhea Penicillins Adverse Reaction (Mild, Verified 10/05/20 08:50) yeast infection naproxen [From Naprosyn] Adverse Reaction (Verified 10/05/20 08:50) gi upset nortriptyline HCl [From Pamelor] Adverse Reaction (Verified 10/05/20 08:50) Upset Stomach Office Meds benralizumab Performing Provider: Roya Oliveira NP, DISHTANK OPERATOR-C Administered by: Carisa Chappell on 10/26/20 10:02 Dose Route Admin Location Lot Number Expiration Date NDC Manufactu rer 30 mg subcut rt arm [id number] 11/05/21 0301-8546-16 [employer] 10/26/20 1327 <Electronically signed by Roya Oliveira NP DISHTANK OPERATOR-C> Date Roya Durán Signature: Date (if applicable) CC: Dr. Elin Reynolds, DO Elin Reynolds DO Work Phone: Start: 10-05-2020 End: 10-05-2020 Comments: See Note; NOTES: [facility] [address] [place] [address] [place] [address] OFFICE VISIT Date of Service: 10/05/20 MR#: [id number] Acct: [id number] Patient: LETY SPENCER Rep #: [id number] : 1955 Provider: MOLLY Oliveira Age/Sex: 65/F Location: [facility] [place] [place] Status: Signed Intake Intake Visit Reasons: COVID-19 Chief Complaint: Throat congestion Allergies buprenorphine [From Butrans] Allergy (Mild, Verified 10/05/20 08:50) Hives terbinafine Allergy (Mild, Verified 10/05/20 08:50) Rash codeine Allergy (Verified 10/05/20 08:50) Unknown nortriptyline Adverse Reaction (Mild, Verified 10/05/20 08:50) Upset Stomach omeprazole Adverse Reaction (Mild, Verified 10/05/20 08:50) Diarrhea Penicillins Adverse Reaction (Mild, Verified 10/05/20 08:50) yeast infection naproxen [From Naprosyn] Adverse Reaction (Verified 10/05/20 08:50) gi upset nortriptyline HCl [From Pamelor] Adverse Reaction (Verified 10/05/20 08:50) Upset Stomach Medications hydrochlorothiazide 12.5 mg PO DAILY 11/05/15 [History Confirmed 10/05/20] pantoprazole 40 mg PO DAILY 11/05/15 [History Confirmed 10/05/20] simvastatin 80 mg PO QHS 11/05/15 [History Confirmed 10/05/20] lisinopril 10 mg PO QHS 07/09/17 [History Confirmed 10/05/20] zolpidem 10 mg PO QHS PRN 07/09/17 [History Confirmed 10/05/20] benzonatate 200 mg capsule 200 mg PO TID PRN #90 cap 04/19/18 [Rx Confirmed 10/05/20] fluticasone propionate 50 mcg/actuation nasal spray,suspension 2 spray INTRANASAL DAILY #18.2 g 07/20/18 [Rx Confirmed 10/05/20] albuterol sulfate 2.5 mg INHALATION Q4H PRN #180 vial 04/21/19 [Rx Confirmed 10/05/20] albuterol sulfate 90 mcg/actuation aerosol inhaler 2 puff INHALATION Q4H PRN #1 device 05/05/19 [Rx Confirmed 10/05/20] amitriptyline 50 mg PO QHS 06/25/19 [History Confirmed 10/05/20] tramadol 50 mg PO Q4H PRN PRN 06/25/19 [History Confirmed 10/05/20] fluticasone furoate 200 mcg-vilanterol 25 mcg/dose inhalation powder 1 inh INHALATION DAILY #1 device 09/26/19 [Rx Confirmed 10/05/20] cetirizine 10 mg capsule 10 mg PO HS #30 cap 11/08/19 [Rx Confirmed 10/05/20] benralizumab 30 mg/mL subcutaneous syringe 30 mg SC Q8W 30 Days #1 ml 01/02/20 [Rx Confirmed 10/05/20] nebulizers #1 ea 04/02/20 [Rx Confirmed 10/05/20] montelukast 10 mg tablet 10 mg PO QPM #30 tab 06/26/20 [Rx Confirmed 10/05/20] metformin 500 mg tablet 500 mg PO BID 08/07/20 [History Confirmed 10/05/20] semaglutide 1 mg/dose (2 mg/1.5 mL) subcutaneous pen injector 1 mg SUBCUT QWEEK 08/07/20 [History Confirmed 10/05/20] prednisone 10 mg tablet 10 mg PO QDAY #30 tab 10/04/20 [Rx Confirmed 10/05/20] [facility] Medical History (Updated 10/05/20 @ 09:01 by Roya Oliveira DISHTANK OPERATOR, DISHTANK OPERATOR-C) Asthma Back pain, sacroiliac 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 Exercise-induced bronchospasm GERD (gastroesophageal reflux disease) Hyperlipidemia Hypertension 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 This visit was conducted during COVID-19 pandemic. LETY SPENCER, is a 65 F who participates in a telephone office visit for review of her COVID-19 symptoms. Statement read to the patient: This telehealth visit is being offered during our stay at home measures in response to the pandemic. It is subject to an office visit charge. The patient consents to continue. Symptom onset occurred: 10/03/20 Positive COVID-19 test occurred: 10/04/20 Unvaccinated The FDA has authorized the emergency use of monoclonal antibody treatment (bamlanivimab/etesevimab or casirivimab/imdevimab) for mild to moderate COVID-19 in adults and pediatric patients with positive results of direct SARS???Cov???2 viral testing ages 12 and older, at least 40 kg, who were not at high risk for progressing to severe COVID-19 and or hospitalization. The significant known and potential risks (allergic reactions or side effects from injection including brief pain, bleeding, bruising of the skin, soreness, swelling, possible infection at the infusion site) and benefits (decrease chance of progression to severe COVID-19) of a monoclonal antibody infusion, and the extent to which such potential risks and benefits are unknown. Patients treated with monoclonal antibody infusion should continue to self-isolate and use infection control measures (such as wear mask, isolate, social distance, avoid sharing personal items, clean and disinfect high touch surfaces, and frequent handwashing) according to the CDC guidelines. The fact sheet for patients, parents and caregivers will be provided prior to the administration of the medication. No drugs are approved by the FDA at this time to treat outpatients with mild or moderate symptoms of COVID-19. The following information was communicated to the patient or caregiver: Monoclonal antibody infusion is not an FDA approved drug. The FDA has authorized the emergency use of monoclonal antibody therapy. The patient had the option to refuse or accept treatment with monoclonal antibody therapy. The patient was informed that the number of people treated with monoclonal antibody therapy at this time is small. The potential benefits and the potential risks of monoclonal antibody therapy are not fully known. Potential benefits of monoclonal antibody include a reduced risk of progressing to severe COVID-19 infection. Potential risks or side effects of monoclonal antibody therapy include allergic reactions, side effects from injection including brief pain, bleeding, bruising of the skin, soreness, swelling, possible infection at the infusion site. The patient stated understanding of this information communicated and wished to proceed with monoclonal antibody infusion therapy. Current symptoms include: Shortness of breath, cough loose, body aches, general malaise, fevers. ROS Const Constitutional: Positive for body ache, fatigue, fever(s) and malaise Resp Respiratory: Positive for cough and shortness of breath Endo Endocrine: Positive for fatigue Exam Const General: cooperative, comfortable (hoarse voice) and no acute distress Orientation: alert and oriented x3 Resp Effort Inspection: normal respiratory effort, able to speak in complete sentences, no audible wheezes, no cough and no respiratory distress Neuro General: patient alert and patient oriented x3 Cognition: normal cognition Speech: speech normal Psych Mental Status: mental status grossly normal Mood: congruent mood Affect: normal affect Speech and Movement: speech clear Attitude: cooperative Thought Process: normal Thought Content: normal Judgment: judgment good Details: Details:: Exam was limited due to phone visit with no video. Coding Level of Care Code Attention Alexandra Diagnoses COVID-19 U07.1 Time Spent (min) 10 Comment 78899 Assessment and Plan Assessment and Plan (1) COVID-19: Status: Acute Plan - Roya Oliveira DISHTANK OPERATOR, DISHTANK OPERATOR-C: This patient remains appropriate for monoclonal antibody treatment. The patient states understanding of this information communicated and wishes to proceed with monoclonal antibody infusion therapy. Patient agrees to receive either balanivimab/etesvimab or casirivimab/imdevimab upon availability. 10/05/20 0929 <Electronically signed by Roya Oliveira NP, NP-C> Date Roya Oliveira NP DISHTANK OPERATOR-C Cosigner Signature: Date (if applicable) CC: DO Elin Parker DO Work Phone: Start: 09-11-2020 End: 09-11-2020 Comments: See Note; NOTES: [facility] [place] Imaging Services [address] [place] [id number] Dexa Bone Density Study MR#: [id number] Acct: [id number] Name: LETY SPENCER Rep #: [id number] : 1955 F 65 From: Tashi multani MD PCP: Dr. Elin Reynolds DO Status: [facility] Study: Dexa Bone Density Study Date of Exam: 09/11/20 Exam# [id number] Ordering Dr: Elin Reynolds DO STUDY: DUAL ENERGY X-RAY ABSORPTIOMETRY / DXA REASON FOR EXAM: Female, 65 years old. [id number]. The patient is postmenopausal. TECHNIQUE: Bone Mineral Density (BMD) measurements of lumbar spine and bilateral hips were obtained. COMPARISON: None. FINDINGS: Lumbar Spine (L1-L4): g/cm2 (0.924) / T-score (-0.9) / Z-score (0.8) Findings are suggestive of normal bone density with a low fracture risk. Left Femur Total: g/cm2 (0.883) / T-score (-0.5) / Z-score (0.7) Left Femoral Neck: g/cm2 (0.632) / T-score (-2.0) / Z-score (-0.5) Right Femur Total: g/cm2 (0.955) / T-score (0.1) / Z-score (1.2) Right Femoral Neck: g/cm2 (0.723) / T-score (-1.1) / Z-score (0.3) BD/Dexa Bone Density Study IMPRESSION: The patient is considered osteopenic as outlined below according to World [employer] Organization (WHO) criteria with a moderate fracture risk. Reference Information: The T-score is the number of standard deviations above or below the standard which is normal for young adults at their peak bone mineral density. The World Health Organization (WHO) interprets the T-scores as follows: Above -1 Normal bone density Between -1 and -2.5 Osteopenia Equal to / or below -2.5 Osteoporosis As a practical clinical guideline, osteopenia may be graded as follows: Mild -1 through -1.5 Moderate -1.6 through -2.0 Severe -2.1 through -2.4 The Z-score is the number of standard deviations above or below age-matched controls. A Z-score of less than -1.5 would be considered abnormal. References: 1. NIH Osteoporosis and Related Bone Diseases www osteo.org 2. International Society for Clinical Densitometry www iscd.org 3. National Osteoporosis Foundation www nof.org Electronically Signed: Tashi Mathias MD at 11:55 EDT , Service support , CC: Dr. Elin Reynolds DO Clinical Biostatistics Director: Signed Elin Reynolds DO Work Phone: Start: 09-11-2020 End: 09-12-2020 Comments: See Note; NOTES: [facility] [place] Imaging Services [address] [place] [address] Abdomen Limited MR#: [id number] Acct: [id number] Name: LETY SPENCER Rep #: [id number] : 1955 F 65 From: Tashi multani MD PCP: Dr. Elin Reynolds, DO Status: REG [facility] Study: Abdomen Limited Date of Exam: 09/11/20 Exam# [id number] Ordering Dr: Elin Reynolds DO STUDY: ABDOMINAL ULTRASOUND - RIGHT UPPER QUADRANT REASON FOR VISIT: Female, 65 years old . History of pancreatic cyst. TECHNIQUE: Ultrasound evaluation of the right upper quadrant was performed with real-time and static toth-scale imaging. TECHNICAL QUALITY: Adequate. COMPARISON: Comparison is made with prior study dated 08/12/2019. FINDINGS: Liver: The liver is enlarged and measures 19.4 cm. There is increased echogenicity consistent with fatty infiltration. The bile ducts are within normal limits. There is hepatic color flow. The direction of portal flow is hepatopetal. There is no demonstrated mass lesion. Gallbladder: Normal distended gallbladder. The gallbladder wall measures 1.9 mm. There is a negative sonographic Kearns''s sign. There is no pericholecystic fluid. There are no gallstones. Common Bile Duct (C.B.D.): The common bile duct measures 3.5 mm. Pancreas: Normal size of the head, body and tail of the pancreas. There is normal echogenicity of the pancreas. Once again, there is evidence of a 6.3 mm x 5.6 mm x 5.2 millimeter cystic nodule in the body of the pancreas. Right Kidney: Normal size of the right kidney. The right kidney measures 11.2 cm x 5.9 cm x 5.2 cm. Normal renal cortex. The right cortex measures 1.8 cm. There is no demonstrated renal mass or cyst. There is no right hydronephrosis. US/Abdomen Limited IMPRESSION: Stable examination. Hepatomegaly and fatty infiltration of the liver. 6.3 mm x 5.6 mm x 5.2 mm cyst in the body of the pancreas. Electronically Signed: Tashi Mathias MD at 9:54 EDT , Service support , CC: Dr. Elin Reynolds DO Clinical Biostatistics Director: Signed Elin Reynolds DO Work Phone: Start: 09-11-2020 End: 09-11-2020 Comments: See Note; NOTES: [facility] [place] Imaging Services [address] [place] [address] SCRN MAMM (CAD)W/ROB BILAT MR#: [id number] Acct: [id number] Name: LETY SPENCER Rep #: [id number] : 1955 F 65 From: Tashi multani MD PCP: Dr. Elin Reynolds DO Status: REG [facility] Study: SCRN MAMM (CAD)W/ROB BILAT Date of Exam: 08/17 09/05 Exam# [id number] Ordering Dr: Elin Reynolds DO MAMMOGRAPHY - BILATERAL SCREENING REASON FOR EXAM: Female, 65 years old. Routine annual screening examination. PERTINENT HISTORY: Non-contributory. Remote right excisional breast biopsy. TECHNIQUE: Digital bilateral breast rob (3D mammographic acquisition) in the CC and MLO projections. 2-D mediolateral oblique (MLO) and craniocaudad (CC) views of both breasts were obtained. CAD: Full Field Digital Mammography with Computer Added Detection was performed. COMPARISON: Comparison is made with prior study dated 08/12/2019 and 07/16/2018. FINDINGS: Breast Composition: There are scattered areas of fibroglandular density. There are no dominant masses or suspicious calcifications. Stable small benign-appearing bilateral axillary lymph nodes. No other significant abnormalities are identified. There has been no significant change since the prior study. BI/SCRN MAMM (CAD)W/ROB BILAT IMPRESSION: Stable bilateral screening mammogram. Yearly follow-up mammogram recommended. (A) ASSESSMENT CATEGORY: BIRADS Category 2: Benign. A letter regarding these results will be sent to the patient by the facility within 30 days. Approximately 10% of breast cancers are not detected by mammography. A normal mammogram should not delay biopsy of a clinically suspicious abnormality. [id number] Electronically Signed: Tashi Mathias MD at 10:25 EDT , Service support , CC: Dr. Elin Reynolds DO Clinical Biostatistics Director: Signed Elin Reynolds DO Work Phone: Start: 08-17-2020 End: 08-17-2020 Comments: See Note; NOTES: [facility] [address] [place] [address] [place] [address] OFFICE VISIT Date of Service: 08/17/20 MR#: [id number] Acct: [id number] Patient: LETY SPENCER Rep #: [id number] : 1955 Provider: MOLLY Oliveira Age/Sex: 65/F Location: [facility] [place] [place].[facility] Status: Signed Intake Vital Signs 08/17/20 09:45 08/17/20 10:00 08/17/20 10:02 BMI 35.3 BP 112/84 H 122/86 H Blood Pressure Location Lt brachial Lt brachial Position Sitting Sitting Respiration 18 16 Pulse 78 74 Pulse Source Monitor Monitor Temp 98.9 F 98.6 F Temp Source Tympanic Tympanic Pulse Oximetry (%) 95 95 Oxygen Delivery Method room air room air Intake Visit Reasons: Injection Allergies buprenorphine [From Butrans] Allergy (Mild, Verified 08/17/20 10:01) Hives terbinafine Allergy (Mild, Verified 08/17/20 10:01) Rash codeine Allergy (Verified 08/17/20 10:01) Unknown nortriptyline Adverse Reaction (Mild, Verified 08/17/20 10:01) Upset Stomach omeprazole Adverse Reaction (Mild, Verified 08/17/20 10:01) Diarrhea Penicillins Adverse Reaction (Mild, Verified 08/17/20 10:01) yeast infection naproxen [From Naprosyn] Adverse Reaction (Verified 08/17/20 10:01) gi upset nortriptyline HCl [From Pamelor] Adverse Reaction (Verified 08/17/20 10:01) Upset Stomach Medications hydrochlorothiazide 12.5 mg PO DAILY 11/05/15 [History Confirmed 08/17/20] pantoprazole 40 mg PO DAILY 11/05/15 [History Confirmed 08/17/20] simvastatin 80 mg PO QHS 11/05/15 [History Confirmed 08/17/20] lisinopril 10 mg PO QHS 07/09/17 [History Confirmed 08/17/20] zolpidem 10 mg PO QHS PRN 07/09/17 [History Confirmed 08/17/20] benzonatate 200 mg capsule 200 mg PO TID PRN #90 cap 04/19/18 [Rx Confirmed 08/17/20] fluticasone propionate 50 mcg/actuation nasal spray,suspension 2 spray INTRANASAL DAILY #18.2 g 07/20/18 [Rx Confirmed 08/17/20] albuterol sulfate 2.5 mg INHALATION Q4H PRN #180 vial 04/21/19 [Rx Confirmed 08/17/20] albuterol sulfate 90 mcg/actuation aerosol inhaler 2 puff INHALATION Q4H PRN #1 device 05/05/19 [Rx Confirmed 08/17/20] amitriptyline 50 mg PO QHS 06/25/19 [History Confirmed 08/17/20] tramadol 50 mg PO Q4H PRN PRN 06/25/19 [History Confirmed 08/17/20] fluticasone furoate 200 mcg-vilanterol 25 mcg/dose inhalation powder 1 inh INHALATION DAILY #1 device 09/26/19 [Rx Confirmed 08/17/20] cetirizine 10 mg capsule 10 mg PO HS #30 cap 11/08/19 [Rx Confirmed 08/17/20] benralizumab 30 mg/mL subcutaneous syringe 30 mg SC Q8W 30 Days #1 ml 01/02/20 [Rx Confirmed 08/17/20] nebulizers #1 ea 04/02/20 [Rx Confirmed 08/17/20] montelukast 10 mg tablet 10 mg PO QPM #30 tab 06/26/20 [Rx Confirmed 08/17/20] metformin 500 mg tablet 500 mg PO BID 08/07/20 [History Confirmed 08/17/20] semaglutide 1 mg/dose (2 mg/1.5 mL) subcutaneous pen injector 1 mg SUBCUT QWEEK 08/07/20 [History Confirmed 08/17/20] Office Procedures Injections Procedure performed by: Sandra Leonardo Lot number: [id number] Seed Potato Cutter: [place] date: 10/17/20 Dose of injection: 1mL Site of injection: Sub-Q Medication Given: Yes Office Meds benralizumab Performing Provider: Roya Oliveira NP, DISHTANK OPERATOR-C Administered by: Sandra Leonardo on 08/17/20 10:02 Dose Route Admin Location Lot Number Expiration Date NDC Manufactu rer 30 mg subcut left arm [id number] 10/17/21 1716-4442-58 ASTRAZENECA 08/17/20 1037 <Electronically signed by Roya Oliveira NP DISHTANK OPERATOR-C> Date Roya Oliveira NP DISHTANK OPERATOR-C Cosigner Signature: Date (if applicable) CC: Dr. Elin Reynolds, DO Elin Reynolds DO Work Phone: Start: 08-07-2020 End: 08-07-2020 Pulmonary Visit Report Comments: See Note; NOTES: [facility] Pulmonary Medicine [place] [address] [place], [place] [id number] OFFICE VISIT Date of Service: 08/07/20 MR#: [id number] Acct: [id number] Name: LETY SPENCER Rep #: [id number] : 1955 Provider: MOLLY Oliveira Age/Sex: 65/F Location: [facility] [place] [place].[facility] Status: Signed Assessment and Plan Assessment and Plan (1) Asthma: Status: Chronic Qualifiers: Asthma severity: severe Asthma persistence: persistent Asthma complication type: uncomplicated Qualified Code(s): J45.50 - Severe persistent asthma, uncomplicated Plan - Roya Oliveira DISHTANK OPERATOR, DISHTANK OPERATOR-C: Stable, no signs of exacerbation of asthma today. Okay to stay off of Breo. No change in maintenance medications, continue Fasenra. No additional testing at this time. Contact the office with any signs of new or worsening symptoms. Follow-up in [address] Leblanc. (2) Seasonal allergic rhinitis: Status: Chronic Qualifiers: Allergic rhinitis trigger: pollen Qualified Code(s): J30.1 - Allergic rhinitis due to pollen Plan - Roya Oliveira NP, DISHTANK OPERATOR-C: Stable. No medication changes. Plan Details Follow Up: 6 Months (DMB) HPI 6 M FU Chief Complaint: Routine follow-up HPI Comments Details: This patient presents to the office today to follow-up on her severe persistent asthma. She is ambulatory and currently on room air. She has not been seen in the ED or urgent care for any respiratory illnesses since her last office visit. She has not required any antibiotics or prednisone for any breathing problems. She is compliant with the use of cetirizine, Flonase and Singulair daily. She admits that recently she was diagnosed with diabetes and her primary care provider asked her to stop taking Breo. She has not noticed any increase in asthma symptoms since stopping Breo. She maintains compliance with Fasenra injections bimonthly. She has not needed to use her albuterol rescue inhaler. She denies any difficulty with shortness of breath. She has not had any cough, sputum production or hemoptysis. She denies any wheezing, chest tightness, chest pain or palpitations. She also denies any fever, chills or body aches. Test results personally reviewed with the patient: Pulmonary function test completed on January 04, 2020. Interpreted as grossly normal. There was also noted to be improvement in the DLCO since 2018. Intake Vital Signs 08/07/20 10:26 Height 5 ft 4 in Weight: 206 lb BMI 35.3 BP 128/83 H Blood Pressure Location Rt brachial Position Sitting Respiration 18 Pulse 99 Pulse Source Monitor Temp 98.0 F Temperature Source Tympanic Pulse Oximetry (%) 95 Oxygen Delivery Method room air Intake Visit Reasons: 6 M FU Allergies buprenorphine [From Butrans] Allergy (Mild, Verified 08/07/20 10:26) Hives terbinafine Allergy (Mild, Verified 08/07/20 10:26) Rash codeine Allergy (Verified 08/07/20 10:26) Unknown nortriptyline Adverse Reaction (Mild, Verified 08/07/20 10:26) Upset Stomach omeprazole Adverse Reaction (Mild, Verified 08/07/20 10:26) Diarrhea Penicillins Adverse Reaction (Mild, Verified 08/07/20 10:26) yeast infection naproxen [From Naprosyn] Adverse Reaction (Verified 08/07/20 10:26) gi upset nortriptyline HCl [From Pamelor] Adverse Reaction (Verified 08/07/20 10:26) Upset Stomach Medications hydrochlorothiazide 12.5 mg PO DAILY 11/05/15 [History Confirmed 08/07/20] pantoprazole 40 mg PO DAILY 11/05/15 [History Confirmed 08/07/20] simvastatin 80 mg PO QHS 11/05/15 [History Confirmed 08/07/20] lisinopril 10 mg PO QHS 07/09/17 [History Confirmed 08/07/20] zolpidem 10 mg PO QHS PRN 07/09/17 [History Confirmed 08/07/20] benzonatate 200 mg capsule 200 mg PO TID PRN #90 cap 04/19/18 [Rx Confirmed 08/07/20] fluticasone propionate 50 mcg/actuation nasal spray,suspension 2 spray INTRANASAL DAILY #18.2 g 07/20/18 [Rx Confirmed 08/07/20] albuterol sulfate 2.5 mg INHALATION Q4H PRN #180 vial 04/21/19 [Rx Confirmed 08/07/20] albuterol sulfate 90 mcg/actuation aerosol inhaler 2 puff INHALATION Q4H PRN #1 device 05/05/19 [Rx Confirmed 08/07/20] amitriptyline 50 mg PO QHS 06/25/19 [History Confirmed 08/07/20] tramadol 50 mg PO Q4H PRN PRN 06/25/19 [History Confirmed 08/07/20] fluticasone furoate 200 mcg-vilanterol 25 mcg/dose inhalation powder 1 inh INHALATION DAILY #1 device 09/26/19 [Rx Confirmed 08/07/20] cetirizine 10 mg capsule 10 mg PO HS #30 cap 11/08/19 [Rx Confirmed 08/07/20] benralizumab 30 mg/mL subcutaneous syringe 30 mg SC Q8W 30 Days #1 ml 01/02/20 [Rx Confirmed 08/07/20] nebulizers #1 ea 04/02/20 [Rx Confirmed 08/07/20] montelukast 10 mg tablet 10 mg PO QPM #30 tab 06/26/20 [Rx Confirmed 08/07/20] metformin 500 mg tablet 500 mg PO BID 08/07/20 [History Confirmed 08/07/20] semaglutide 1 mg/dose (2 mg/1.5 mL) subcutaneous pen injector 1 mg SUBCUT QWEEK 08/07/20 [History Confirmed 08/07/20] PFSH Medical History Asthma Back pain, sacroiliac 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 Exercise-induced bronchospasm GERD (gastroesophageal reflux disease) Hyperlipidemia Hypertension 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 Surgical History History of back surgery History of D C History of hysterectomy History of right breast biopsy History of tonsillectomy History of tubal ligation Family History Mother Anxiety Hypertension kidney/renal disease High cholesterol Brother Heart disease Cancer Bladder Cancer Father Heart disease Social History second hand exposure: No alcohol intake: never substance use type: does not use caffeine: No what type of physical activity do you participate in: none Review of Systems Resp Respiratory: Yes as per HPI Exam Const Constitutional: Positive conversant, cooperative, in no acute respiratory distress, healthy appearing, well developed, well nourished, good hygiene and obese Head Head: Yes normocephalic and Yes atraumatic Eyes Eye: Positive clear conjunctiva; Negative nystagmus Ears Ear: Positive hearing normal and external ears normal; Negative hard of hearing Nose Nose: Yes external nose normal Neck Neck: Positive normal visual inspection, full ROM and trachea midline Chest Wall Chest: Positive normal inspection of the chest and symmetric chest movement; Negative increased A/P diameter Resp lung sounds: Positive clear to auscultation, good air exchange, normal expiratory time and normal respiratory effort; Negative diminished lung sounds, wheezes, rhonchi or rales Cardio Cardiac: Positive regular rate, regular rhythm, S1 normal and S2 normal; Negative murmur GI GI: Positive normal to inspection and obese; Negative distended Genitourinary: Positive deferred Musc Musculoskeletal: Positive steady gait and ROM normal; Negative kyphosis or scoliosis Skin Pulmonary Skin Exam: Positive intact; Negative lesion, rash or ulcers Neuro Neurologic: Yes no focal neuro deficits, Yes conversant, Yes cooperative, Yes normal cognition, Yes normal coordination, Yes normal concentration and Yes understands questions Psych Appearance: Positive grossly normal, eye contact and well kempt Mental Status: Positive mental status grossly normal Mood: Positive congruent mood Affect: Positive normal affect Coding Level of Care Code Off vis,est,level 3 Diagnoses Asthma J45.50 Asthma severity: severe Asthma persistence: persistent Asthma complication type: uncomplicated Seasonal allergic rhinitis J30.1 Allergic rhinitis trigger: pollen 08/07/20 1105 <Electronically signed by Roya Oliveira NP, NP-C> Date Roya Oliveira NP, NP-C Cosigner Signature: Date (if applicable) CC: Dr. Elin Reynolds, DO Elin Reynolds DO Work Phone: Start: 06-22-2020 End: 06-22-2020 Office Visit Report Comments: See Note; NOTES: [place] [address] OFFICE VISIT Date of Service: 06/22/20 MR#: [id number] Acct: [id number] Patient: LETY SPENCER Rep #: [id number] : 1955 Provider: MOLLY Oliveira Age/Sex: 65/F Location: [facility] [place] [place].[facility] Status: Signed Intake Vital Signs 06/22/20 09:50 06/22/20 10:04 BP 122/86 H 124/84 H Blood Pressure Location Rt brachial Lt brachial Position Sitting Sitting Respiration 18 18 Pulse 88 84 Pulse Source Monitor Monitor Temp 96.5 F L 98.6 F Temp Source Tympanic Tympanic Pulse Oximetry (%) 96 96 Oxygen Delivery Method room air room air Intake Visit Reasons: Injection Allergies buprenorphine [From Butrans] Allergy (Mild, Verified 06/22/20 10:03) Hives terbinafine Allergy (Mild, Verified 06/22/20 10:03) Rash codeine Allergy (Verified 06/22/20 10:03) Unknown nortriptyline Adverse Reaction (Mild, Verified 06/22/20 10:03) Upset Stomach omeprazole Adverse Reaction (Mild, Verified 06/22/20 10:03) Diarrhea Penicillins Adverse Reaction (Mild, Verified 06/22/20 10:03) yeast infection naproxen [From Naprosyn] Adverse Reaction (Verified 06/22/20 10:03) gi upset nortriptyline HCl [From Pamelor] Adverse Reaction (Verified 06/22/20 10:03) Upset Stomach Medications hydrochlorothiazide 12.5 mg PO DAILY 11/05/15 [History Confirmed 06/22/20] pantoprazole 40 mg PO DAILY 11/05/15 [History Confirmed 06/22/20] simvastatin 80 mg PO QHS 11/05/15 [History Confirmed 06/22/20] lisinopril 10 mg PO QHS 07/09/17 [History Confirmed 06/22/20] zolpidem 10 mg PO QHS PRN 07/09/17 [History Confirmed 06/22/20] benzonatate 200 mg capsule 200 mg PO TID PRN #90 cap 04/19/18 [Rx Confirmed 06/22/20] fluticasone propionate 50 mcg/actuation nasal spray,suspension 2 spray INTRANASAL DAILY #18.2 g 07/20/18 [Rx Confirmed 06/22/20] albuterol sulfate 2.5 mg INHALATION Q4H PRN #180 vial 04/21/19 [Rx Confirmed 06/22/20] albuterol sulfate 90 mcg/actuation aerosol inhaler 2 puff INHALATION Q4H PRN #1 device 05/05/19 [Rx Confirmed 06/22/20] amitriptyline 50 mg PO QHS 06/25/19 [History Confirmed 06/22/20] tramadol 50 mg PO Q4H PRN PRN 06/25/19 [History Confirmed 06/22/20] fluticasone furoate 200 mcg-vilanterol 25 mcg/dose inhalation powder 1 inh INHALATION DAILY #1 device 09/26/19 [Rx Confirmed 06/22/20] cetirizine 10 mg capsule 10 mg PO HS #30 cap 11/08/19 [Rx Confirmed 06/22/20] montelukast 10 mg tablet 10 mg PO QPM #30 tab 11/08/19 [Rx Confirmed 06/22/20] benralizumab 30 mg/mL subcutaneous syringe 30 mg SC Q8W 30 Days #1 ml 01/02/20 [Rx Confirmed 06/22/20] prednisone 10 mg tablet 40 mg PO QDAY #21 tab 03/01/20 [Rx Confirmed 06/22/20] nebulizers #1 ea 04/02/20 [Rx Confirmed 06/22/20] Office Procedures Injections Procedure performed by: Sandra Leonardo Lot number: [id number] 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 Elin Reynolds, DO Elin Reynolds DO Work Phone: Start: 04-27-2020 End: 04-27-2020 Office Visit Report Comments: See Note; NOTES: [facility] [address] [place] [place] [address] OFFICE VISIT Date of Service: 04/27/20 MR#: [id number] Acct: [id number] Patient: LETY SPENCER Rep #: [id number] : 1955 Provider: MOLLY Oliveira Age/Sex: 65/F Location: [facility] [place], [place] Status: Signed Intake Vital Signs 04/27/20 BP 124/82 H 04/27/20 Blood Pressure Location Rt brachial 04/27/20 Position Sitting 04/27/20 Respiration 18 04/27/20 Pulse 96 04/27/20 Pulse Source Monitor 04/27/20 Temp 97.3 F L 04/27/20 Temp Source Tympanic 04/27/20 Pulse Oximetry (%) 97 04/27/20 Oxygen Delivery Method room air 04/27/20 Height 5 ft 4 in 04/27/20 BP 142/83 H 04/27/20 Blood Pressure Location Rt brachial 04/27/20 Position Sitting 04/27/20 Respiration 18 04/27/20 Pulse 101 H 04/27/20 Pulse Source Monitor 04/27/20 Temp 97.3 F L 04/27/20 Temp Source Tympanic 04/27/20 Pulse Oximetry (%) 98 04/27/20 Oxygen Delivery Method room air Intake Visit Reasons: Injection Allergies buprenorphine [From Butrans] Allergy (Mild, Verified 03/05/20 09:23) Hives terbinafine Allergy (Mild, Verified 03/05/20 09:23) Rash codeine Allergy (Verified 03/05/20 09:23) Unknown nortriptyline Adverse Reaction (Mild, Verified 03/05/20 09:23) Upset Stomach omeprazole Adverse Reaction (Mild, Verified 03/05/20 09:23) Diarrhea Penicillins Adverse Reaction (Mild, Verified 03/05/20 09:23) yeast infection naproxen [From Naprosyn] Adverse Reaction (Verified 03/05/20 09:23) gi upset nortriptyline HCl [From Pamelor] Adverse Reaction (Verified 03/05/20 09:23) Upset Stomach Medications Hydrochlorothiazide [Hctz] 12.5 mg PO DAILY 11/05/15 [History Confirmed 04/27/20] Pantoprazole Sodium [Protonix] 40 mg PO DAILY 11/05/15 [History Confirmed 04/27/20] Simvastatin [Zocor] 80 mg PO QHS 11/05/15 [History Confirmed 04/27/20] Lisinopril [Zestril] 10 mg PO QHS 07/09/17 [History Confirmed 04/27/20] Zolpidem Tartrate [Ambien] 10 mg PO QHS PRN 07/09/17 [History Confirmed 04/27/20] benzonatate 200 mg capsule 200 mg PO TID PRN #90 cap 04/19/18 [Rx Confirmed 04/27/20] fluticasone propionate 50 mcg/actuation nasal spray,suspension 2 spray INTRANASAL DAILY #18.2 g 07/20/18 [Rx Confirmed 04/27/20] albuterol sulfate 2.5 mg INHALATION Q4H PRN #180 vial 04/21/19 [Rx Confirmed 04/27/20] albuterol sulfate 90 mcg/actuation aerosol inhaler 2 puff INHALATION Q4H PRN #1 device 05/05/19 [Rx Confirmed 04/27/20] Amitriptyline HCl 50 mg PO QHS 06/25/19 [History Confirmed 04/27/20] traMADol [Ultram (G)] 50 mg PO Q4H PRN PRN 06/25/19 [History Confirmed 04/27/20] fluticasone furoate 200 mcg-vilanterol 25 mcg/dose inhalation powder 1 inh INHALATION DAILY #1 device 09/26/19 [Rx Confirmed 04/27/20] cetirizine 10 mg capsule 10 mg PO HS #30 cap 11/08/19 [Rx Confirmed 04/27/20] montelukast 10 mg tablet 10 mg PO QPM #30 tab 11/08/19 [Rx Confirmed 04/27/20] benralizumab 30 mg/mL subcutaneous syringe 30 mg SC Q8W 30 Days #1 ml 01/02/20 [Rx Confirmed 04/27/20] prednisone 10 mg tablet 40 mg PO QDAY #21 tab 03/01/20 [Rx Confirmed 04/27/20] nebulizers See Rx Instructions .ROUTE .MEDSUPPLY #1 ea 04/02/20 [Rx Confirmed 04/27/20] Office Procedures benralizumab 30 mg/mL subcutaneous syringe 30 mg subcut ONCE Procedure performed by: Chanell Hadley Meds benralizumab Performing Provider: Roya Oliveira NP, DISHTANK OPERATOR-C Administered by: Chanell Billy on 04/27/20 09:54 Dose Route Admin Location Lot Number Expiration Date NDC Manufactu rer 30 mg subcut RIGHT ARM [id number] 05/16/21 2522-1487-82 [employer] Assessment Plan Orders Orders: Fasenra Injection Today J45.50 04/27/20 1346 <Electronically signed by Roya Oliveira NP DISHTANK OPERATOR-C> Date Roya Oliveira NP DISHTANK OPERATOR-C Cosigner Signature: Date (if applicable) CC: Dr. Elin Reynolds, DO Elin Reynolds DO Work Phone: Start: 03-05-2020 End: 03-05-2020 Office Visit Report Comments: See Note; NOTES: [facility] [address] [address] OFFICE VISIT Date of Service: 03/05/20 MR#: [id number] Acct: [id number] Patient: LETY SPENCER Rep #: [id number] : 1955 Provider: MOLLY Oliveira Age/Sex: 64/F Location: [facility] [place] [place]W Status: Signed Intake Vital Signs 03/05/20 BP 131/83 H 03/05/20 Blood Pressure Location Lt brachial 03/05/20 Position Sitting 03/05/20 Respiration 18 03/05/20 Pulse 82 03/05/20 Pulse Source Monitor 03/05/20 Temp 97.7 F L 03/05/20 Temp Source Tympanic 03/05/20 Pulse Oximetry (%) 97 03/05/20 Oxygen Delivery Method room air 03/05/20 BP 134/77 H 03/05/20 Blood Pressure Location Rt brachial 03/05/20 Position Sitting 03/05/20 Respiration 18 03/05/20 Pulse 87 03/05/20 Pulse Source Monitor 03/05/20 Temp 97.7 F L 03/05/20 Temp Source Tympanic 03/05/20 Pulse Oximetry (%) 96 03/05/20 Oxygen Delivery Method room air Intake Visit Reasons: Fasenra Allergies buprenorphine [From Butrans] Allergy (Mild, Verified 03/05/20 09:23) Hives terbinafine Allergy (Mild, Verified 03/05/20 09:23) Rash codeine Allergy (Verified 03/05/20 09:23) Unknown nortriptyline Adverse Reaction (Mild, Verified 03/05/20 09:23) Upset Stomach omeprazole Adverse Reaction (Mild, Verified 03/05/20 09:23) Diarrhea Penicillins Adverse Reaction (Mild, Verified 03/05/20 09:23) yeast infection naproxen [From Naprosyn] Adverse Reaction (Verified 03/05/20 09:23) gi upset nortriptyline HCl [From Pamelor] Adverse Reaction (Verified 03/05/20 09:23) Upset Stomach Medications Hydrochlorothiazide [Hctz] 12.5 mg PO DAILY 11/05/15 [History Confirmed 03/05/20] Pantoprazole Sodium [Protonix] 40 mg PO DAILY 11/05/15 [History Confirmed 03/05/20] Simvastatin [Zocor] 80 mg PO QHS 11/05/15 [History Confirmed 03/05/20] Lisinopril [Zestril] 10 mg PO QHS 07/09/17 [History Confirmed 03/05/20] Zolpidem Tartrate [Ambien] 10 mg PO QHS PRN 07/09/17 [History Confirmed 03/05/20] benzonatate 200 mg capsule 200 mg PO TID PRN #90 cap 04/19/18 [Rx Confirmed 03/05/20] fluticasone propionate 50 mcg/actuation nasal spray,suspension 2 spray INTRANASAL DAILY #18.2 g 07/20/18 [Rx Confirmed 03/05/20] albuterol sulfate 2.5 mg INHALATION Q4H PRN #180 vial 04/21/19 [Rx Confirmed 03/05/20] albuterol sulfate 90 mcg/actuation aerosol inhaler 2 puff INHALATION Q4H PRN #1 device 05/05/19 [Rx Confirmed 03/05/20] Amitriptyline HCl 50 mg PO QHS 06/25/19 [History Confirmed 03/05/20] traMADol [Ultram (G)] 50 mg PO Q4H PRN PRN 06/25/19 [History Confirmed 03/05/20] fluticasone furoate 200 mcg-vilanterol 25 mcg/dose inhalation powder 1 inh INHALATION DAILY #1 device 09/26/19 [Rx Confirmed 03/05/20] cetirizine 10 mg capsule 10 mg PO HS #30 cap 11/08/19 [Rx Confirmed 03/05/20] montelukast 10 mg tablet 10 mg PO QPM #30 tab 11/08/19 [Rx Confirmed 03/05/20] benralizumab 30 mg/mL subcutaneous syringe 30 mg SC Q8W 30 Days #1 ml 01/02/20 [Rx Confirmed 03/05/20] prednisone 10 mg tablet 40 mg PO QDAY #21 tab 03/01/20 [Rx Confirmed 03/05/20] Office Procedures benralizumab 30 mg/mL subcutaneous syringe 30 mg subcut ONCE Procedure performed by: Chanell Hadley Meds benralizumab Performing Provider: Roya Oliveira NP, DISHTANK OPERATOR-C Administered by: Chanell Billy on 03/05/20 09:08 Dose Route Admin Location Lot Number Expiration Date NDC Manufactu rer 30 mg subcut RIGHT ARM [id number] 02/16/21 9913-6965-01 [employer] Assessment Plan Orders Orders: Fasenra Injection Today J45.50 03/05/20 1145 <Electronically signed by Roya Oliveira NP DISHTANK OPERATOR-C> Date Roya Durán Signature: Date (if applicable) CC: DO Elin Parker Start: 02-06-2020 End: 02-06-2020 Virtual Office Visit Comments: See Note; NOTES: [facility] [place] [address] OFFICE VISIT Date of Service: 02/06/20 MR#: [id number] Acct: [id number] Patient: LETY SPENCER Rep #: [id number] : 1955 Provider: Dr. Ayush Leblanc DO Age/Sex: 64/F Location: [facility] [place], [place] Status: Signed Intake Intake Visit Reasons: 3 M FU Allergies buprenorphine [From Butrans] Allergy (Mild, Verified 02/06/20 13:05) Hives terbinafine Allergy (Mild, Verified 02/06/20 13:05) Rash codeine Allergy (Verified 02/06/20 13:05) Unknown nortriptyline Adverse Reaction (Mild, Verified 02/06/20 13:05) Upset Stomach omeprazole Adverse Reaction (Mild, Verified 02/06/20 13:05) Diarrhea Penicillins Adverse Reaction (Mild, Verified 02/06/20 13:05) yeast infection naproxen [From Naprosyn] Adverse Reaction (Verified 02/06/20 13:05) gi upset nortriptyline HCl [From Pamelor] Adverse Reaction (Verified 02/06/20 13:05) Upset Stomach Medications Hydrochlorothiazide [Hctz] 12.5 mg PO DAILY 11/05/15 [History Confirmed 02/06/20] Pantoprazole Sodium [Protonix] 40 mg PO DAILY 11/05/15 [History Confirmed 02/06/20] Simvastatin [Zocor] 80 mg PO QHS 11/05/15 [History Confirmed 02/06/20] Lisinopril [Zestril] 10 mg PO QHS 07/09/17 [History Confirmed 02/06/20] Zolpidem Tartrate [Ambien] 10 mg PO QHS PRN 07/09/17 [History Confirmed 02/06/20] benzonatate 200 mg capsule 200 mg PO TID PRN #90 cap 04/19/18 [Rx Confirmed 02/06/20] fluticasone propionate 50 mcg/actuation nasal spray,suspension 2 spray INTRANASAL DAILY #18.2 g 07/20/18 [Rx Confirmed 02/06/20] albuterol sulfate 2.5 mg INHALATION Q4H PRN #180 vial 04/21/19 [Rx Confirmed 02/06/20] albuterol sulfate 90 mcg/actuation aerosol inhaler 2 puff INHALATION Q4H PRN #1 device 05/05/19 [Rx Confirmed 02/06/20] Amitriptyline HCl 50 mg PO QHS 06/25/19 [History Confirmed 02/06/20] traMADol [Ultram (G)] 50 mg PO Q4H PRN PRN 06/25/19 [History Confirmed 02/06/20] fluticasone furoate 200 mcg-vilanterol 25 mcg/dose inhalation powder 1 inh INHALATION DAILY #1 device 09/26/19 [Rx Confirmed 02/06/20] cetirizine 10 mg capsule 10 mg PO HS #30 cap 11/08/19 [Rx Confirmed 02/06/20] montelukast 10 mg tablet 10 mg PO QPM #30 tab 11/08/19 [Rx Confirmed 02/06/20] benralizumab 30 mg/mL subcutaneous syringe 30 mg SC Q8W 30 Days #1 ml 01/02/20 [Rx Confirmed 02/06/20] [facility] Medical History Exercise-induced bronchospasm (Chronic) Hypertension (Chronic) Hyperlipidemia (Chronic) GERD (gastroesophageal reflux disease) (Chronic) 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) Back pain, sacroiliac (Chronic) 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 Ayush Leblanc DO) second hand exposure: No alcohol intake: never substance use type: does not use caffeine: No what type of physical activity do you participate in: none HPI HPI Details: Patient was informed that this visit will be billed to patient. This visit was conducted during COVID-19 pandemic. If you recall, I initially saw the patient in January 2016, after she presented to the clinic with an established asthma diagnosis. She was initially diagnosed sometime in her late 20s. She had been seen previously by a pulmonary provider at [facility] until 2008. She is a lifelong non-smoker. Current triggers for worsening of her breathing quality have included: Cold air and cigarette smoke exposure. She has a history of seasonal allergic rhinitis, as well. Pulmonary function testing completed in January 2016 showed the presence of a mild large airways obstructive ventilatory defect with an associated significant response to aerosolized bronchodilators. Repeat pulmonary function testing completed in December 2019 was grossly normal with stigmata of small airways disease. Today, the patient reports overall stability in her breathing quality. She remains compliant with the use of once daily Brio Ellipta, Singulair and as needed albuterol. In addition, the patient receives regular Fasenra injections. Her breathing quality has improved significantly since being started on biologic therapy. She denies any recent exacerbations. She reports exceedingly infrequent use of her rescue inhaler. The patient does report that her granddaughter recently visited her for short period of time last week and then later tested positive for Covid. The patient does not currently have any active Covid-like symptoms. She denies fevers, chills or night sweats. ROS Const Constitutional: No anorexia, chills, fatigue, fever(s), abnormal sleep pattern or change in appetite Eyes Eyes: No blurry vision, change in vision or bulging eyes ENT ENT: No abnormal hearing, hearing loss, nasal congestion, sinus pressure or sinus pain Resp Respiratory: Positive for shortness of breath Cardio Cardiology: No chest pain at rest, generalized swelling or irregular heart rhythm Gastro GI: No abdominal pain, diarrhea or heartburn Genitourinary-Female: No difficulty urinating or burning urination Neuro Neurology: No abnormal hearing, abnormal speech or dizziness Psych Psychiatric: No abnormal sleep pattern, No change in appetite Endo Endocrine: No change in body appearance or fatigue Travis/Lymp Hematologic/Lymphatic: No easy bleeding or easy bruising Exam Details: Details:: Exam was limited due to phone visit with no video. Quality Reporting Medication Reconciliation (CMS 68) albuterol sulfate 2.5 mg (3 mL) inhalation Q4H PRN albuterol sulfate 90 mcg/actuation (Ventolin HFA) 2 puffs inhalation Q4H PRN amitriptyline 50 mg PO QHS benralizumab (Fasenra) 30 mg subcut Q8W 1 month benzonatate 200 mg PO TID PRN cetirizine 10 mg PO HS fluticasone furoate-vilanterol 200-25 mcg/dose (Breo Ellipta) 1 inh inhalation DAILY fluticasone propionate 50 mcg/actuation (Flonase Allergy Relief) 2 sprays intranasal DAILY hydrochlorothiazide 12.5 mg PO DAILY lisinopril 10 mg PO QHS montelukast 10 mg PO QPM pantoprazole 40 mg PO DAILY simvastatin 80 mg PO QHS tramadol 50 mg PO Q4H PRN PRN zolpidem 10 mg PO QHS PRN Assessment Plan Problems 1. Severe persistent asthma without complication J45.50 Plan The patient remains symptomatically well controlled on her current inhaler regimen along with Fasenra biologic injections. This regimen will be continued without change. The patient was advise d to contact our office with any worsening in her breathing quality and/or increased reliance on her short acting beta agonist. Plan Detail Follow Up 6 Months ([facility]) Coding Level of Care Code Level 2 Telephone Diagnoses Severe persistent asthma without complication J45.50 ?Asthma severity: severe ?Asthma persistence: persistent ?Asthma complication type: uncomplicated 02/06/20 1331 <Electronically signed by Ayush Leblanc DO> Date Ayush Leblanc DO Cosigner Signature: Date (if applicable) CC: DO Elin Parker Start: 01-06-2020 End: 01-06-2020 Pulmonary Function Test Comments: See Note; NOTES: [facility] Pulmonary Services/Neurology [address] [place] [address] MR#: [id number] Acct: [id number] Name: LETY SPENCER Rep #: [id number] : 1955 64 From: Ayush Leblanc DO Referring Dr: Roya Oliveira NP DISHTANK OPERATOR-C Status: [facility] Location: [facility] Date: 01/04/20 Sex: F C INTRODUCTION: The patient is a 64-year-old female that presents for pulmonary function studies secondary to a diagnosis of asthma. Respiratory therapy reports good patient effort. Bronchodilators were used during testing. INTERPRETATION: Forced expiration spirometry demonstrates no evidence of a large airways obstructive ventilatory defect. There was no significant response to aerosolized bronchodilators, based upon strict ATS criteria. Spirograms are of good quality and plateau gradually indicating slow emptying of the lungs. Body plethysmography was performed and reveals lung volumes to be within normal limits. Diffusing capacity by single breath CO is also within normal limits. When compared to pulmonary function studies from March 2017, there has been a 51% improvement in DLCO. IMPRESSION: Grossly normal pulmonary function studies with improvement in DLCO since 2018, as noted above. 01/06/20 1259 <Electronically signed by Ayush Leblanc DO> Date Ayush Leblanc DO CC: DISHTANK OPERATOR-C Roya Oliveira; Dr. Elin Reynolds DO Date Dictated: 01/06/20 1257 Date Transcribed: 01/06/20 1257 Clinical Biostatistics Director: DB Signed Elin Reynolds Start: 01-06-2020 End: 01-06-2020 Office Visit Report Comments: See Note; NOTES: [facility] [address] [place] [address] OFFICE VISIT Date of Service: 01/06/20 MR#: [id number] Acct: [id number] Patient: LETY SPENCER Rep #: [id number] : 1955 Provider: MOLLY Oliveira Age/Sex: 64/F Location: [facility] [place], [place].[facility]W Status: Signed Intake Vital Signs 01/06/20 BP 127/81 H 01/06/20 Blood Pressure Location Rt brachial 01/06/20 Position Sitting 01/06/20 Respiration 18 01/06/20 Pulse 97 01/06/20 Pulse Source Monitor 01/06/20 Temp 97.3 F L 01/06/20 Temp Source Tympanic 01/06/20 Pulse Oximetry (%) 97 01/06/20 Oxygen Delivery Method room air 01/06/20 Height 5 ft 4 in 01/06/20 BP 149/79 H 01/06/20 Blood Pressure Location Lt brachial 01/06/20 Position Sitting 01/06/20 Respiration 18 01/06/20 Pulse 89 01/06/20 Pulse Source Monitor 01/06/20 Temp 96.4 F L 01/06/20 Temp Source Tympanic 01/06/20 Pulse Oximetry (%) 97 01/06/20 Oxygen Delivery Method room air Intake Visit Reasons: Injection Allergies buprenorphine [From Butrans] Allergy (Mild, Verified 01/06/20 10:49) Hives terbinafine Allergy (Mild, Verified 01/06/20 10:49) Rash codeine Allergy (Verified 01/06/20 10:49) Unknown nortriptyline Adverse Reaction (Mild, Verified 01/06/20 10:49) Upset Stomach omeprazole Adverse Reaction (Mild, Verified 01/06/20 10:49) Diarrhea Penicillins Adverse Reaction (Mild, Verified 01/06/20 10:49) yeast infection naproxen [From Naprosyn] Adverse Reaction (Verified 01/06/20 10:49) gi upset nortriptyline HCl [From Pamelor] Adverse Reaction (Verified 01/06/20 10:49) Upset Stomach Medications Hydrochlorothiazide [Hctz] 12.5 mg PO DAILY 11/05/15 [History Confirmed 01/06/20] Pantoprazole Sodium [Protonix] 40 mg PO DAILY 11/05/15 [History Confirmed 01/06/20] Simvastatin [Zocor] 80 mg PO QHS 11/05/15 [History Confirmed 01/06/20] Lisinopril [Zestril] 10 mg PO QHS 07/09/17 [History Confirmed 01/06/20] Zolpidem Tartrate [Ambien] 10 mg PO QHS PRN 07/09/17 [History Confirmed 01/06/20] benzonatate 200 mg capsule 200 mg PO TID PRN #90 cap 04/19/18 [Rx Confirmed 01/06/20] fluticasone propionate 50 mcg/actuation nasal spray,suspension 2 spray INTRANASAL DAILY #18.2 g 07/20/18 [Rx Confirmed 01/06/20] albuterol sulfate 2.5 mg INHALATION Q4H PRN #180 vial 04/21/19 [Rx Confirmed 01/06/20] albuterol sulfate 90 mcg/actuation aerosol inhaler 2 puff INHALATION Q4H PRN #1 device 05/05/19 [Rx Confirmed 01/06/20] Amitriptyline HCl 50 mg PO QHS 06/25/19 [History Confirmed 01/06/20] traMADol [Ultram (G)] 50 mg PO Q4H PRN PRN 06/25/19 [History Confirmed 01/06/20] fluticasone furoate 200 mcg-vilanterol 25 mcg/dose inhalation powder 1 inh INHALATION DAILY #1 device 09/26/19 [Rx Confirmed 01/06/20] cetirizine 10 mg capsule 10 mg PO HS #30 cap 11/08/19 [Rx Confirmed 01/06/20] montelukast 10 mg tablet 10 mg PO QPM #30 tab 11/08/19 [Rx Confirmed 01/06/20] benralizumab 30 mg/mL subcutaneous syringe 30 mg SC Q8W 30 Days #1 ml 01/02/20 [Rx Confirmed 01/06/20] Office Procedures benralizumab 30 mg/mL subcutaneous syringe 30 mg subcut ONCE Procedure performed by: Chanell Hadley Meds benralizumab Performing Provider: Roya Oliveira DISHTANK OPERATOR, DISHTANK OPERATOR-C Administered by: Chanell Billy on 01/06/20 10:01 Dose Route Admin Location Lot Number Expiration Date NDC Manufactu rer 30 mg subcut RIGHT ARM [id number] 01/16/21 4573-4354-98 [facility] Assessment Plan Orders Orders: Fasenra Injection Today J45.50 01/06/20 1052 <Electronically signed by Roya BARNES> Date Roya BARNES Cosigner Signature: Date (if applicable) CC: DO Elin Parker Start: 11-11-2019 End: 11-11-2019 Pulmonary Visit Report Comments: See Note; NOTES: [facility] Pulmonary Medicine of [address] [place] [address] OFFICE VISIT Date of Service: 11/11/19 MR#: [id number] Acct: [id number] Name: LETY SPENCER Rep #: [id number] : 1955 Provider: MOLLY Oliveira Age/Sex: 64/F Location: [facility] [place], [place]W Status: Signed Assessment Plan Problems 1. Severe persistent asthma without complication J45.50 Plan No signs of exacerbation of asthma today. No change in maintenance medications, including biologic therapy. We discussed the possibility of de-escalating to Breo 100 mcg in the spring, as patient r eports that fall and winter are her worst seasons. Repeat PFT prior to her follow-up with Dr. Leblanc. Contact the office with any signs of new or worsening symptoms. Follow-up in [address] Leblanc. Annual influenza vaccine provided in the office today. Orders Orders: Fasenra Injection Today J45.50 Influenza Immunization Today Z23 Pulmonary Function Test (Comp) Today J45.909 Plan Detail Follow Up 3 Months ([facility]) HPI 6 M FU: Chief Complaint: Routine follow-up HPI Comments Details: This patient presents to the office today to follow-up on her severe persistent asthma. She is ambulatory and currently on room air. She has not been seen in the ED or urgent care for any respiratory illnesses since her last office visit. She has not required any antibiotics or prednisone for any breathing problems. She maintains compliance with the use of Breo 1 puff daily. She reports rinsing her mouth out after each use. She denies any medication side effect such as sore throat or thrush. She is also compliant with the use of cetirizine daily and Flonase daily, in addition to Singulair daily. She has not recently needed to utilize her albuterol. She continues compliance with Fasenra injections as scheduled. Currently she denies any shortness of breath. She denies any cough, sputum production or hemoptysis. She denies any wheezing, chest tightness, chest pain or palpitations. She has not had any fever, chills or body aches. She is quite pleased with her symptom control since starting Fasenra injections. She has better quality of life. She has not required any additional prednisone. 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 Required: No Accompanied by: Self Is patient in pain?: No Allergies buprenorphine [From Butrans] Allergy (Mild, Verified 11/11/19 12:36) Hives terbinafine Allergy (Mild, Verified 11/11/19 12:36) Rash codeine Allergy (Verified 11/11/19 12:36) Unknown nortriptyline Adverse Reaction (Mild, Verified 11/11/19 12:36) Upset Stomach omeprazole Adverse Reaction (Mild, Verified 11/11/19 12:36) Diarrhea Penicillins Adverse Reaction (Mild, Verified 11/11/19 12:36) yeast infection naproxen [From Naprosyn] Adverse Reaction (Verified 11/11/19 12:36) gi upset nortriptyline HCl [From Pamelor] Adverse Reaction (Verified 11/11/19 12:36) Upset Stomach Medications Hydrochlorothiazide [Hctz] 12.5 mg PO DAILY 11/05/15 [History Confirmed 11/11/19] Pantoprazole Sodium [Protonix] 40 mg PO DAILY 11/05/15 [History Confirmed 11/11/19] Simvastatin [Zocor] 80 mg PO QHS 11/05/15 [History Confirmed 11/11/19] Lisinopril [Zestril] 10 mg PO QHS 07/09/17 [History Confirmed 11/11/19] Zolpidem Tartrate [Ambien] 10 mg PO QHS PRN 07/09/17 [History Confirmed 11/11/19] benzonatate 200 mg capsule 200 mg PO TID PRN #90 cap 04/19/18 [Rx Confirmed 11/11/19] fluticasone propionate 50 mcg/actuation nasal spray,suspension 2 spray INTRANASAL DAILY #18.2 g 07/20/18 [Rx Confirmed 11/11/19] albuterol sulfate 2.5 mg INHALATION Q4H PRN #180 vial 04/21/19 [Rx Confirmed 11/11/19] albuterol sulfate 90 mcg/actuation aerosol inhaler 2 puff INHALATION Q4H PRN #1 device 05/05/19 [Rx Confirmed 11/11/19] Amitriptyline HCl 50 mg PO QHS 06/25/19 [History Confirmed 11/11/19] traMADol [Ultram (G)] 50 mg PO Q4H PRN PRN 06/25/19 [History Confirmed 11/11/19] benralizumab 30 mg/mL subcutaneous syringe 30 mg SC Q4W 0 Days #1 ml 09/08/19 [Rx Confirmed 11/11/19] fluticasone furoate 200 mcg-vilanterol 25 mcg/dose inhalation powder 1 inh INHALATION DAILY #1 device 09/26/19 [Rx Confirmed 11/11/19] cetirizine 10 mg capsule 10 mg PO HS #30 cap 11/08/19 [Rx Confirmed 11/11/19] montelukast 10 mg tablet 10 mg PO QPM #30 tab 11/08/19 [Rx Confirmed 11/11/19] PFSH Medical History Exercise-induced bronchospasm (Chronic) Hypertension (Chronic) Hyperlipidemia (Chronic) GERD (gastroesophageal reflux disease) (Chronic) 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) Back pain, sacroiliac (Chronic) 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) Asthma (Chronic) Surgical History History of back surgery (Resolved) History of tubal ligation (Resolved) History of tonsillectomy (Resolved) History of hysterectomy (Resolved) History of D C (Resolved) History of right breast biopsy (Resolved) Family History Mother Anxiety Hypertension kidney/renal disease High cholesterol Brother Heart disease Cancer Bladder Cancer Father Heart disease Social History (Updated 11/11/19 @ 15:20 by Roya Oliveira NP, DISHTANK OPERATOR-C) Smoking Status: Never smoker second hand exposure: No alcohol intake: never substance use type: does not use caffeine: No what type of physical activity do you participate in: none Review of Systems Const CONSTITUTIONAL: No anorexia, No body ache, No chills, No daytime sleepiness, No fever(s), No night sweats, No stops breathing during sleep, No weight loss, No weight gain, No sleeping in chair, No orthopnea, No fatigue, No headache(s), No frequent colds, No seasonal allergies, No other EETM Ear Nose Throat Mouth: No hoarseness, No Dry mouth in morning, No change in vision, No itchy eyes, No eye pain, No Swallowing Difficulty, No ear pain, No nose bleed, No headache(s), No mouth pain, No nasal congestion, No nasal discharge, No sinus pain, No sinus pressure, No sore throat, No other Cardio Cadriovascular: No chest pain, No chest pain at rest, No chest pain with activity, No irregular heart rhythm, No shortness of breath when lying down, No palpitations, No other Resp Respiratory: Yes as per HPI, No shortness of breath at rest, No pain with cough, No chest congestion, No cough, No chest tightness, No pain on inspiration, No Inhalers, No Increase use of Rescue Inhalers, No snoring, No apnea, No other Gastro Gastrointestional: Negative bloody stools, change in appetite, difficulty swallowing, reflux, hematemesis, melena stool, loose stool, constipation or other Genitourinary: Negative blood in urine, nocturia, pain with urination or other Musc Musculoskeletal: Negative body pain, back pain, neck pain or other Skin/Breast Skin/Breast: No dry skin, No itching, No unusual bruising, No breast lump, No other Neuro Neurological: Negative restless legs, confusion, weakness or other Psych Psychocological: Negative abnormal sleep pattern, anxiety, thoughts of hurting self/others, hopelessness or other Lymph Lymphatic: No easy bleeding, No easy bruising, No other Exam Const Constitutional: Positive conversant, cooperative, in no acute respiratory distress, well developed, well nourished, good hygiene and obese Head Head: Yes normocephalic, Yes atraumatic, No cyanosis of lips/distal nose Eyes Eye: Positive clear conjunctiva; negative nystagmus or scleral abnormality Ears Ear: Positive hearing normal and external ears normal; negative hard of hearing Nose Nose: Yes external nose normal Neck Neck: Positive normal visual inspection and trachea midline; negative lymphadenopathy Chest Wall Chest: Positive symmetric chest movement Normal AP diameter. Resp lung sounds: Positive clear to auscultation, good air exchange, normal expiratory time and normal respiratory effort; negative wheezes, rhonchi or rales Cardio Cardiac: Positive regular rate, regular rhythm, S1 normal and S2 normal; negative murmur, rub or gallop GI GI: Positive obese Soft without distention Genitourinary: Positive deferred Musc Musculoskeletal: Positive steady gait Skin Pulmonary Skin Exam: Positive intact; negative lesion, rash, ulcers or dermal atrophy Extremities Extremities: No clubbing, No cyanosis, No edema Neuro Neurologic: Yes no focal neuro deficits, Yes conversant, Yes cooperative, Yes normal cognition, Yes normal coordination, Yes normal concentration, Yes understands questions Psych Appearance: Positive grossly normal Mental Status: Positive mental status grossly normal Mood: Positive congruent mood Affect: Positive normal affect Office Meds benralizumab Performing Provider: Roya Oliveira DISHTANK OPERATOR, DISHTANK OPERATOR-C Administered by: Hamida Momin on 11/11/19 13:37 Dose Route Admin Location Lot Number Expiration Date [facility] Manufactu rer 30 mg subcut right arm [id number] 12/05/20 7784-6983-84 [employer] Immunizations Flucelvax Quad (PF) Performing Provider: Roya Oliveira NP, DISHTANK OPERATOR-C Administered by: Hamida Momin on 11/11/19 13:38 Dose Route Admin Location Lot Number Expiration Date NDC Manufactu rer 60 mcg IM Left Deltoid [id number] 08/05/20 85251-741-49 SEQIRUS VIS Given Date VIS Provided VIS Publication Date 11/11/19 Single Vaccine 19 Eligibility Eligibility Date Funding Source Not Applicable Coding Level of Care Code Off vis,est,level 3 Diagnoses Severe persistent asthma without complication J45.50 ?Asthma severity: severe ?Asthma persistence: persistent ?Asthma complication type: uncomplicated 11/11/19 1520 <Electronically signed by Roya Oliveira NP DISHTANK OPERATOR-C> Date Roya Oliveira NP DISHTANK OPERATOR-C Cosigner Signature: Date (if applicable) CC: DO Elin Parker Start: 09-16-2019 End: 09-16-2019 Office Visit Report Comments: See Note; NOTES: [facility] [address] [place] [address] OFFICE VISIT Date of Service: 09/16/19 MR#: [id number] Acct: [id number] Patient: LETY SPENCER Rep #: [id number] : 1955 Provider: MOLLY Oliveira Age/Sex: 64/F Location: [facility] [place], [place].PMW Status: Signed Intake Vital Signs 09/16/19 BMI 38.2 09/16/19 BP 122/82 H 09/16/19 Blood Pressure Location Lt brachial 09/16/19 Position Sitting 09/16/19 Respiration 16 09/16/19 Pulse 93 09/16/19 Pulse Source Monitor 09/16/19 Temp 98.5 F 09/16/19 Temp Source Temporal 09/16/19 Pulse Oximetry (%) 98 09/16/19 Oxygen Delivery Method room air Intake Visit Reasons: Injection Allergies buprenorphine [From Butrans] Allergy (Mild, Verified 09/16/19 09:52) Hives terbinafine Allergy (Mild, Verified 09/16/19 09:52) Rash codeine Allergy (Verified 09/16/19 09:52) Unknown nortriptyline Adverse Reaction (Mild, Verified 09/16/19 09:52) Upset Stomach omeprazole Adverse Reaction (Mild, Verified 09/16/19 09:52) Diarrhea Penicillins Adverse Reaction (Mild, Verified 09/16/19 09:52) yeast infection naproxen [From Naprosyn] Adverse Reaction (Verified 09/16/19 09:52) gi upset nortriptyline HCl [From Pamelor] Adverse Reaction (Verified 09/16/19 09:52) Upset Stomach Medications Hydrochlorothiazide [Hctz] 12.5 mg PO DAILY 11/05/15 [History Confirmed 09/16/19] Pantoprazole Sodium [Protonix] 40 mg PO DAILY 11/05/15 [History Confirmed 09/16/19] Simvastatin [Zocor] 80 mg PO QHS 11/05/15 [History Confirmed 09/16/19] Lisinopril [Zestril] 10 mg PO QHS 07/09/17 [History Confirmed 09/16/19] Zolpidem Tartrate [Ambien] 10 mg PO QHS PRN 07/09/17 [History Confirmed 09/16/19] benzonatate 200 mg capsule 200 mg PO TID PRN #90 cap 04/19/18 [Rx Confirmed 09/16/19] fluticasone furoate 200 mcg-vilanterol 25 mcg/dose inhalation powder 1 inh INHALATION DAILY #1 device 06/29/18 [Rx Confirmed 09/16/19] fluticasone propionate 50 mcg/actuation nasal spray,suspension 2 spray INTRANASAL DAILY #18.2 g 07/20/18 [Rx Confirmed 09/16/19] cetirizine 10 mg capsule 10 mg PO HS #30 cap 11/24/18 [Rx Confirmed 09/16/19] albuterol sulfate 2.5 mg INHALATION Q4H PRN #180 vial 04/21/19 [Rx Confirmed 09/16/19] albuterol sulfate 90 mcg/actuation aerosol inhaler 2 puff INHALATION Q4H PRN #1 device 05/05/19 [Rx Confirmed 09/16/19] Amitriptyline HCl 50 mg PO QHS 06/25/19 [History Confirmed 09/16/19] traMADol [Ultram (G)] 50 mg PO Q4H PRN PRN 06/25/19 [History Confirmed 09/16/19] montelukast 10 mg tablet 10 mg PO QPM #30 tab 07/20/19 [Rx Confirmed 09/16/19] benralizumab 30 mg/mL subcutaneous syringe 30 mg SC Q4W 0 Days #1 ml 09/08/19 [Rx Confirmed 09/16/19] Office Procedures benralizumab 30 mg/mL subcutaneous syringe 30 mg subcut ONCE Procedure performed by: Sandra Leonardo Lot number: [id number] Seed Potato Cutter: astrazeneca date: 10/17/20 Dose of injection: 1mL Site 2 of injection: Sub-Q Medication Given: Yes Office Meds benralizumab Performing Provider: MOLLY Banda Administered by: Sandra Leonardo on 09/16/19 09:53 Dose Route Admin Location Lot Number Expiration Date NDC Manufactu rer 30 mg subcut right arm [id number] 10/17/20 5710-6232-17 [employer] Assessment Plan Orders Orders: Fasenra Injection Today J45.50 09/16/19 1043 <Electronically signed by Roya BARNES> Date Roya BARNES Cosigner Signature: Date (if applicable) CC: DO Elin Parker Start: 08-16-2019 End: 08-16-2019 Office Visit Report Comments: See Note; NOTES: [facility] [address] [place] [address] OFFICE VISIT Date of Service: 08/16/19 MR#: [id number] Acct: [id number] Patient: LTEY SPENCER Rep #: [id number] : 1955 Provider: MOLLY Oliveira Age/Sex: 64/F Location: [facility] [place] [place].W Status: Signed Intake Vital Signs 08/16/19 BP 124/78 H 08/16/19 Blood Pressure Location Lt brachial 08/16/19 Position Sitting 08/16/19 Respiration 16 08/16/19 Pulse 84 08/16/19 Pulse Source Monitor 08/16/19 Temp 98.6 F 08/16/19 Temp Source Temporal 08/16/19 Pulse Oximetry (%) 96 08/16/19 Oxygen Delivery Method room air 08/16/19 BP 126/84 H 08/16/19 Blood Pressure Location Lt brachial 08/16/19 Position Sitting 08/16/19 Respiration 16 08/16/19 Pulse 84 08/16/19 Pulse Source Monitor 08/16/19 Temp 97.6 F L 08/16/19 Temp Source Temporal 08/16/19 Pulse Oximetry (%) 96 08/16/19 Oxygen Delivery Method room air Intake Visit Reasons: injection Chief Complaint: Throat congestion Allergies buprenorphine [From Butrans] Allergy (Mild, Verified 08/16/19 09:59) Hives terbinafine Allergy (Mild, Verified 08/16/19 09:59) Rash codeine Allergy (Verified 08/16/19 09:59) Unknown nortriptyline Adverse Reaction (Mild, Verified 08/16/19 09:59) Upset Stomach omeprazole Adverse Reaction (Mild, Verified 08/16/19 09:59) Diarrhea Penicillins Adverse Reaction (Mild, Verified 08/16/19 09:59) yeast infection naproxen [From Naprosyn] Adverse Reaction (Verified 08/16/19 09:59) gi upset nortriptyline HCl [From Pamelor] Adverse Reaction (Verified 08/16/19 09:59) Upset Stomach Medications Hydrochlorothiazide [Hctz] 12.5 mg PO DAILY 11/05/15 [History Confirmed 08/16/19] Pantoprazole Sodium [Protonix] 40 mg PO DAILY 11/05/15 [History Confirmed 08/16/19] Simvastatin [Zocor] 80 mg PO QHS 11/05/15 [History Confirmed 08/16/19] Lisinopril [Zestril] 10 mg PO QHS 07/09/17 [History Confirmed 08/16/19] Zolpidem Tartrate [Ambien] 10 mg PO QHS PRN 07/09/17 [History Confirmed 08/16/19] benzonatate 200 mg capsule 200 mg PO TID PRN #90 cap 04/19/18 [Rx Confirmed 08/16/19] fluticasone furoate 200 mcg-vilanterol 25 mcg/dose inhalation powder 1 inh INHALATION DAILY #1 device 06/29/18 [Rx Confirmed 08/16/19] fluticasone propionate 50 mcg/actuation nasal spray,suspension 2 spray INTRANASAL DAILY #18.2 g 07/20/18 [Rx Confirmed 08/16/19] cetirizine 10 mg capsule 10 mg PO HS #30 cap 11/24/18 [Rx Confirmed 08/16/19] albuterol sulfate 2.5 mg INHALATION Q4H PRN #180 vial 04/21/19 [Rx Confirmed 08/16/19] albuterol sulfate 90 mcg/actuation aerosol inhaler 2 puff INHALATION Q4H PRN #1 device 05/05/19 [Rx Confirmed 08/16/19] Amitriptyline HCl 50 mg PO QHS 06/25/19 [History Confirmed 08/16/19] traMADol [Ultram (G)] 50 mg PO Q4H PRN PRN 06/25/19 [History Confirmed 08/16/19] prednisone 10 mg tablet 10 mg PO QDAY #30 tab 06/27/19 [Rx Confirmed 08/16/19] benralizumab 30 mg/mL subcutaneous syringe 30 mg SC Q4W 0 Days #1 ml 07/15/19 [Rx Confirmed 08/16/19] montelukast 10 mg tablet 10 mg PO QPM #30 tab 07/20/19 [Rx Confirmed 08/16/19] Office Procedures benralizumab 30 mg/mL subcutaneous syringe 30 mg subcut ONCE Procedure performed by: Sandra Leonardo Lot number: [id number] Seed Potato Cutter: Bomberbot date: 08/16/20 Dose of injection: 30mg Site of injection: left deltoid IM Medication Given: Yes Office Meds benralizumab Performing Provider: MOLLY Banda Administered by: Sandra Leonardo on 08/16/19 09:59 Dose Route Admin Location Lot Number Expiration Date NDC Manufactu rer 30 mg subcut left arm [id number] 08/16/203090619-5081-10 [employer] Assessment Plan Orders Orders: Fasenra Injection Today J45.50 08/16/19 1139 <Electronically signed by Roya BARNES> Date Roya BARNES Cosigner Signature: Date (if applicable) CC: DO Elin Parker Start: 08-12-2019 End: 08-12-2019 Abdomen Limited Comments: See Note; NOTES: [facility] [place] [facility] Services [address] [place] [address] Abdomen Limited MR#: [id number] Acct: [id number] Name: LETY SPENCER Rep #: [id number] : 1955 F 64 From: Yusuf Post MD PCP: Dr. Elin Reynolds DO Status: REG CLI Study: Abdomen Limited Date of Exam: 08/12/19 Exam# [id number] Ordering Dr: Elin Reynolds DO STUDY: ABDOMINAL ULTRASOUND - RIGHT UPPER QUADRANT REASON FOR VISIT: Female, 64 years old known pancreatic mass, follow-up TECHNIQUE: Ultrasound evaluation of the right upper quadrant was performed with real-time and static toth-scale imaging. TECHNICAL QUALITY: Adequate. COMPARISON: 03/18/2016 FINDINGS: Liver: The liver measures 20.5 cm. There is increased echogenicity consistent with fatty infiltration. The bile ducts are within normal limits. There is hepatic color flow. The direction of portal flow is hepatopetal. There is no demonstrated mass lesion. Gallbladder: Normal distended gallbladder. The gallbladder wall measures 1.5 mm. There is a negative sonographic Kearns''s sign. There is no pericholecystic fluid. There are no gallstones. Common Bile Duct (C.B.D.): The common bile duct measures 5.0 mm. Pancreas: Normal size of the head, body and tail of the pancreas. There is normal echogenicity of the pancreas. There is a stable 0.6 x 0.5 x 0.4 cm hypoechoic mass . Since it has not changed in more than 3 years, no specific follow-up is needed. Right Kidney: Normal size of the right kidney. The right kidney measures 11.3 x 4.7 x 4.5 cm. Normal renal cortex. The right cortex measures 1.4 cm. There is no demonstrated renal mass or cyst. There is no right hydronephrosis. US/Abdomen Limited IMPRESSION: Hepatomegaly with fatty infiltration of the liver, no discrete lesion Stable 6 mm hypoechoic nodule in the head of the pancreas, no specific follow-up is needed since it has remained unchanged for more than 3 years Electronically Signed: Armin Post MD at 9:51 EDT , Service support , CC: Dr. Elin Reynolds DO Clinical Biostatistics Director: Signed Elin Reynolds Work Phone: Start: 08-12-2019 End: 08-12-2019 SCREEN MAMM (CAD) W/ROB BILAT Comments: See Note; NOT ES: [facility] [place] Imaging Services [address] [place] [address] SCREEN MAMM (CAD) W/ROB BILAT MR#: [id number] Acct: [id number] Name: LETY SPENCER Rep #: [id number] : 1955 F 64 From: Yusuf Post MD PCP: Dr. Elin Reynolds DO Status: REG CLI Study: SCREEN MAMM (CAD) W/ROB BILAT Date of Exam: 0 08/12/19 Exam# [id number] Ordering Dr: Elin Reynolds DO MAMMOGRAPHY - BILATERAL SCREENING 3-D TOMOSYNTHESIS REASON FOR EXAM: Female, 64 years old. Routine screening PERTINENT HISTORY: NO FM HX , RT EXC BX 1997. TECHNIQUE: 2-D mammograms and 3-D Tomosynthesis of the breast (s) were performed. CAD was performed. COMPARISON: 07/16/2018 FINDINGS: The breast composition is almost entirely fat. Scattered benign calcifications are seen. No dense spiculated masses or suspicious microcalcifications are identified. No architectural distortion is identified. There is no skin thickening or retraction. There has been no significant change since the prior study. BI/SCREEN MAMM (CAD) W/ROB BILAT IMPRESSION: No mammographic signs of malignancy. Routine yearly mammograms recommended. ASSESSMENT CATEGORY: BIRADS Category 1: Negative. A letter regarding these results will be sent to the patient by the facility within 30 days. FOLLOW UP RECOMMENDATION: Yearly follow up mammogram recommended. (A) Approximately 10% of breast cancers are not detected by mammography. A normal mammogram should not delay biopsy of a clinically suspicious abnormality. Electronically Signed: Armin Post MD at 10:56 EDT , Service support , CC: Dr. Elin Reynolds DO Clinical Biostatistics Director: Signed Elin Reynolds Work Phone: Start: 07-19-2019 End: 07-19-2019 Office Visit Report Comments: See Note; NOTES: [facility] [address] [place] [address] [place] [address] OFFICE VISIT Date of Service: 07/19/19 MR#: [id number] Acct: [id number] Patient: LETY SPENCER Rep #: [id number] : 1955 Provider: MOLLY Oliveira Age/Sex: 64/F Location: [facility] [place] [place].PMW Status: Signed Intake Vital Signs 07/19/19 BP 122/84 H 07/19/19 Blood Pressure Location Lt brachial 07/19/19 Position Sitting 07/19/19 Respiration 16 07/19/19 Pulse 82 07/19/19 Pulse Source Monitor 07/19/19 Temp 98.6 F 07/19/19 Temp Source Temporal 07/19/19 Pulse Oximetry (%) 95 07/19/19 Oxygen Delivery Method room air 07/19/19 Height 5 ft 4 in 07/19/19 Weight: 223 lb 07/19/19 BMI 38.2 07/19/19 BP 146/84 H 07/19/19 Blood Pressure Location Lt brachial 07/19/19 Position Sitting 07/19/19 Respiration 18 07/19/19 Pulse 101 H 07/19/19 Pulse Source Monitor 07/19/19 Temp 98.6 F 07/19/19 Temp Source Temporal 07/19/19 Pulse Oximetry (%) 95 07/19/19 Oxygen Delivery Method room air Intake Visit Reasons: Injection Allergies buprenorphine [From Butrans] Allergy (Mild, Verified 07/19/19 09:34) Hives terbinafine Allergy (Mild, Verified 07/19/19 09:34) Rash codeine Allergy (Verified 07/19/19 09:34) Unknown nortriptyline Adverse Reaction (Mild, Verified 07/19/19 09:34) Upset Stomach omeprazole Adverse Reaction (Mild, Verified 07/19/19 09:34) Diarrhea Penicillins Adverse Reaction (Mild, Verified 07/19/19 09:34) yeast infection naproxen [From Naprosyn] Adverse Reaction (Verified 07/19/19 09:34) gi upset nortriptyline HCl [From Pamelor] Adverse Reaction (Verified 07/19/19 09:34) Upset Stomach Medications Hydrochlorothiazide [Hctz] 12.5 mg PO DAILY 11/05/15 [History Confirmed 07/19/19] Pantoprazole Sodium [Protonix] 40 mg PO DAILY 11/05/15 [History Confirmed 07/19/19] Simvastatin [Zocor] 80 mg PO QHS 11/05/15 [History Confirmed 07/19/19] Lisinopril [Zestril] 10 mg PO QHS 07/09/17 [History Confirmed 07/19/19] Zolpidem Tartrate [Ambien] 10 mg PO QHS PRN 07/09/17 [History Confirmed 07/19/19] benzonatate 200 mg capsule 200 mg PO TID PRN #90 cap 04/19/18 [Rx Confirmed 07/19/19] fluticasone furoate 200 mcg-vilanterol 25 mcg/dose inhalation powder 1 inh INHALATION DAILY #1 device 06/29/18 [Rx Confirmed 07/19/19] fluticasone propionate 50 mcg/actuation nasal spray,suspension 2 spray INTRANASAL DAILY #18.2 g 07/20/18 [Rx Confirmed 07/19/19] cetirizine 10 mg capsule 10 mg PO HS #30 cap 11/24/18 [Rx Confirmed 07/19/19] montelukast 10 mg tablet 10 mg PO QPM #30 tab 12/06/18 [Rx Confirmed 07/19/19] albuterol sulfate 2.5 mg INHALATION Q4H PRN #180 vial 04/21/19 [Rx Confirmed 07/19/19] albuterol sulfate 90 mcg/actuation aerosol inhaler 2 puff INHALATION Q4H PRN #1 device 05/05/19 [Rx Confirmed 07/19/19] Amitriptyline HCl 50 mg PO QHS 06/25/19 [History Confirmed 07/19/19] traMADol [Ultram (G)] 50 mg PO Q4H PRN PRN 06/25/19 [History Confirmed 07/19/19] prednisone 10 mg tablet 10 mg PO QDAY #30 tab 06/27/19 [Rx Confirmed 07/19/19] benralizumab 30 mg/mL subcutaneous syringe 30 mg SC Q4W 0 Days #1 ml 07/15/19 [Rx Confirmed 07/19/19] Office Meds benralizumab Performing Provider: MOLLY Banda Administered by: Sandra Leonardo on 07/19/19 09:35 Dose Route Admin Location Lot Number Expiration Date NDC Manufactu rer 30 mg subcut right arm [id number] 08/16/20 5828-3030-99 [facility] Assessment Plan Orders Orders: Fasenra Injection Today J45.50 07/19/19 1242 <Electronically signed by Roya BARNES> Date Roya Durán Signature: Date (if applicable) CC: DO Elin Parker Start: 06-27-2019 End: 06-27-2019 MR/BMS.PMW Comments: See Note; NOTES: [facility] [address] [place] [address] OFFICE VISIT Date of Service: 06/27/19 MR#: [id number] Acct: [id number] Name: LETY SPENCER Rep #: [id number] : 1955 Provider: MOLLY Oliveira Age/Sex: 64/F Location: [facility] [place] [place].PMW Status: Signed Assessment Plan Problems 1. Moderate persistent asthma without complication J45.40 Plan Deteriorated. She has had recurrent exacerbations of her asthma despite being on maximal traditional medical management. She does best when she is on prednisone. With recent blood work that indicates that she has an elevated eosinophil count, this makes sense. The patient will be placed on a prednisone taper. She is appropriate for biologic therapy. She was provided with education materials on Fasenra. We will begin the prior authorization process. Hopes that we can administer the first injection in the near future. Keep previously scheduled routine follow-up. Contact the office with any new or worsening symptoms in the meantime. Continue all maintenance medications as previously prescribed. Medications New: benralizumab (Fasenra) 30 mg subcut Q4W 3 doses 1 mL 0RF J45.50 prednisone take 4 tabs for three days, then 3 tabs for three days, then 2 tabs for three days, then 1 tab for 3 days 10 mg PO QDAY 30 tabs 0RF Discontinued: prednisone With food Discontinued Reason: Order Changed 40 mg (2 x 20 mg) PO DAILY 10 tabs HPI SOB, cough: Chief Complaint: Shortness of breath Details: This patient presents to the office today for follow-up on her shortness of breath and cough. She is ambulatory and currently on room air. She was recently seen in the emergency department with complaints of worsening shortness of breath cough and wheezing. She was determined to be in yet another exacerbation of her asthma. She was treated with aerosols, she had an extensive work-up which included a CT of the chest and chest x- ray, as well as cardiac work-up. She was discharged on 40 mg of prednisone daily for 4 days. She continues that 40 mg daily at this time. She maintains compliance with her maintenance medications which consists of Breo 1 puff daily. She does report rinsing her mouth out after each use. She is also compliant with Singulair, Flonase, cetirizine and the use of albuterol. She is currently using her albuterol 5-6 times per day. She does find it to be effective in helping to reduce her shortness of breath and chest tightness. She is currently utilizing Tessalon Perles 3 times per day for the persistent cough. She believes it is helping somewhat. She does have wheezing and chest tightness. Her cough is mostly nonproductive but persistent and described as deep down. She reports chest heaviness and shortness of breath at rest, which is worsened with exertion. She has not had any fever, chills or body aches. She denies any hemoptysis. She denies any lower extremity edema. Laboratory Tests 06/25/19 11:30 WBC 9.1 Eos % (Auto) 4.4 Total eosinophil count 400.4 Intake Vital Signs 06/27/19 Height 5 ft 4 in 06/27/19 Weight: 223 lb 4 oz 06/27/19 BP 138/81 H 06/27/19 Blood Pressure Location Lt brachial 06/27/19 Position Sitting 06/27/19 Respiration 18 06/27/19 Pulse 72 06/27/19 Pulse Source Monitor 06/27/19 Temp 97.7 F L 06/27/19 Temperature Source Temporal Artery 06/27/19 Pulse Oximetry (%) 96 06/27/19 Oxygen Delivery Method room air 06/27/19 BMI 37.8 Intake Visit Reasons: SOB, cough Allergies buprenorphine [From Butrans] Allergy (Mild, Verified 06/27/19 13:06) Hives terbinafine Allergy (Mild, Verified 06/27/19 13:06) Rash codeine Allergy (Verified 06/27/19 13:06) Unknown nortriptyline Adverse Reaction (Mild, Verified 06/27/19 13:06) Upset Stomach omeprazole Adverse Reaction (Mild, Verified 06/27/19 13:06) Diarrhea Penicillins Adverse Reaction (Mild, Verified 06/27/19 13:06) yeast infection naproxen [From Naprosyn] Adverse Reaction (Verified 06/27/19 13:06) gi upset nortriptyline HCl [From Pamelor] Adverse Reaction (Verified 06/27/19 13:06) Upset Stomach Medications Hydrochlorothiazide [Hctz] 12.5 mg PO DAILY 11/05/15 [History Confirmed 06/27/19] Pantoprazole Sodium [Protonix] 40 mg PO DAILY 11/05/15 [History Confirmed 06/27/19] Simvastatin [Zocor] 80 mg PO QHS 11/05/15 [History Confirmed 06/27/19] Lisinopril [Zestril] 10 mg PO QHS 07/09/17 [History Confirmed 06/27/19] Zolpidem Tartrate [Ambien] 10 mg PO QHS PRN 07/09/17 [History Confirmed 06/27/19] benzonatate 200 mg capsule 200 mg PO TID PRN #90 cap 04/19/18 [Rx Confirmed 06/27/19] fluticasone furoate 200 mcg-vilanterol 25 mcg/dose inhalation powder 1 inh INHALATION DAILY #1 device 06/29/18 [Rx Confirmed 06/27/19] fluticasone propionate 50 mcg/actuation nasal spray,suspension 2 spray INTRANASAL DAILY #18.2 g 07/20/18 [Rx Confirmed 06/27/19] cetirizine 10 mg capsule 10 mg PO HS #30 cap 11/24/18 [Rx Confirmed 06/27/19] montelukast 10 mg tablet 10 mg PO QPM #30 tab 12/06/18 [Rx Confirmed 06/27/19] albuterol sulfate 2.5 mg INHALATION Q4H PRN #180 vial 04/21/19 [Rx Confirmed 06/27/19] albuterol sulfate 90 mcg/actuation aerosol inhaler 2 puff INHALATION Q4H PRN #1 device 05/05/19 [Rx Confirmed 06/27/19] Amitriptyline HCl 50 mg PO QHS 06/25/19 [History Confirmed 06/27/19] traMADol [Ultram (G)] 50 mg PO Q4H PRN PRN 06/25/19 [History Confirmed 06/27/19] benralizumab 30 mg/mL subcutaneous syringe 30 mg SC Q4W 0 Days #1 ml 06/27/19 [Rx Confirmed 06/27/19] prednisone 10 mg tablet 10 mg PO QDAY #30 tab 06/27/19 [Rx Confirmed 06/27/19] PFSH Medical History Exercise-induced bronchospasm (Chronic) Hypertension (Chronic) Hyperlipidemia (Chronic) GERD (gastroesophageal reflux disease) (Chronic) 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) Back pain, sacroiliac (Chronic) 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) Asthma (Chronic) Surgical History History of back surgery (Resolved) History of tubal ligation (Resolved) History of tonsillectomy (Resolved) History of hysterectomy (Resolved) History of D C (Resolved) History of right breast biopsy (Resolved) Family History Mother Anxiety Hypertension kidney/renal disease High cholesterol Brother Heart disease Cancer Bladder Cancer Father Heart disease Social History (Updated 06/27/19 @ 15:15 by MOLLY Banda) Smoking Status: Never smoker second hand exposure: No alcohol intake: never substance use type: does not use caffeine: No what type of physical activity do you participate in: none Review of Systems Const CONSTITUTIONAL: No anorexia, No body ache, No chills, No daytime sleepiness, No fever(s), No night sweats, No stops breathing during sleep, No weight loss, No weight gain, No sleeping in chair, No orthopnea, No fatigue, No headache(s), No frequent colds, No seasonal allergies, No other EETM Ear Nose Throat Mouth: No hoarseness, No Dry mouth in morning, No change in vision, No itchy eyes, No eye pain, No Swallowing Difficulty, No ear pain, No nose bleed, No headache(s), No mouth pain, No nasal congestion, No nasal discharge, No sinus pain, No sinus pressure, No sore throat, No other Cardio Cadriovascular: No chest pain, No chest pain at rest, No chest pain with activity, No irregular heart rhythm, No shortness of breath when lying down, No palpitations, No other Resp Respiratory: Yes as per HPI, Yes shortness of breath at rest (not as bad as exertion), Yes pain with cough, No chest congestion, Yes cough (dry cough (mucous too deep to come up) ), Yes chest tightness, No pain on inspiration, Yes Inhalers (Ventolin), No Increase use of Rescue Inhalers, No snoring, No apnea, Yes other (SOB upon exertion) Gastro Gastrointestional: Negative bloody stools, change in appetite, difficulty swallowing, reflux, hematemesis, melena stool, loose stool, constipation or other Genitourinary: Negative blood in urine, nocturia, pain with urination or other Musc Musculoskeletal: Negative body pain, back pain, neck pain or other Skin/Breast Skin/Breast: No dry skin, No itching, No unusual bruising, No breast lump, No other Neuro Neurological: Negative restless legs, confusion, weakness or other Psych Psychocological: Negative abnormal sleep pattern, anxiety, thoughts of hurting self/others, hopelessness or other Lymph Lymphatic: No easy bleeding, No easy bruising, No other Exam Const Constitutional: Positive conversant, cooperative, in no acute respiratory distress, well developed, well nourished, good hygiene and obese Head Head: Yes normocephalic, Yes atraumatic, No cyanosis of lips/distal nose Eyes Eye: Positive clear conjunctiva; negative nystagmus or scleral abnormality Ears Ear: Positive hearing normal and external ears normal; negative hard of hearing Nose Nose: Yes external nose normal Neck Neck: Positive normal visual inspection and trachea midline; negative lymphadenopathy Chest Wall Chest: Positive symmetric chest movement Normal AP diameter. Resp lung sounds: Positive diminished, wheezes, wheeze present on forced exhalation and increased work of breathing; negative rhonchi, rales or use of accessory muscles Cardio Cardiac: Positive regular rate, regular rhythm, S1 normal and S2 normal; negative murmur, rub or gallop GI GI: Positive obese Soft without distention Genitourinary: Positive deferred Musc Musculoskeletal: Positive steady gait Skin Pulmonary Skin Exam: Positive intact; negative lesion, rash, ulcers or dermal atrophy Pulses Pulse: Yes Pedal pulses present: Extremities Extremities: Yes capillary refill normal, No clubbing, No cyanosis, No edema Neuro Neurologic: Yes no focal neuro deficits, Yes conversant, Yes cooperative, Yes normal cognition, Yes normal coordination, Yes normal concentration, Yes understands questions, No tremor Psych Appearance: Positive grossly normal Mental Status: Positive mental status grossly normal Mood: Positive congruent mood Affect: Positive normal affect Coding Level of Care Code Off vis,est,level 4 Diagnoses Moderate persistent asthma without complication J45.40 ?Asthma severity: moderate ?Asthma persistence: persistent ?Asthma complication type: uncomplicated 06/27/19 1515 <Electronically signed by Roya BARNES> Date Roya MONTES DE OCAC Cosigner Signature: Date (if applicable) CC: DO Elin Parker Start: 06-25-2019 End: 06-27-2019 CTA Chest W/WO Contrast Comments: See Note; NOTES: [facility] [place] Imaging Services [address] [place] [id number] CTA Chest W/WO Contrast MR#: [id number] Acct: [id number] Name: LETY SPENCER Rep #: [id number] : 1955 F 64 From: Crow Kuhn DO PCP: Dr. Elin Reynolds, DO Status: REG ER Study: CTA Chest W/WO Contrast Date of Exam: 06/25/19 Exam# [id number] Ordering Dr: Florian Carey MD STUDY: CTA CHEST REASON FOR EXAM: Female, 64 years old. CHEST TIGHTNESS. SOB. COPD AND ASTHMA RADIATION DOSAGE (If Supplied By Facility): CTDIvol = ( 11.47 ) mGy, DLP = ( 519.96 ) mGycm TECHNIQUE: The examination was performed with the intravenous administration of 100ML ISOVUE 370. Post-processing of the angiographic images was performed, with multiplanar reformation and 3D reconstruction. Individualized dose optimization techniques were used for this CT. COMPARISON: None. FINDINGS: Normal enhancement of the main pulmonary artery and right and left pulmonary arteries. Normal enhancement of the bilateral peripheral pulmonary arteries. There is no demonstrated pulmonary embolism. Normal thoracic aorta and visualized great vessels. There is no demonstrated aortic dissection. Normal heart and pericardium. Normal mediastinum. Normal hilar regions. Normal visualized trachea and bronchi. The lungs are well expanded. Mild linear scarring/atelectasis bilaterally. Normal pleura. Normal chest wall structures. Mild degenerative vertebral changes. Normal visualized upper abdomen. CT/CTA Chest W/WO Contrast IMPRESSION: No demonstrated pulmonary embolism or arterial dissection. Electronically Signed: Crow Kuhn DO at 14:59 EDT Tel [phone], Service support , CC: Dr. Florian Carey MD; Dr. Elin Reynolds DO Clinical Biostatistics Director: Signed Elin Reynolds Start: 06-25-2019 End: 06-25-2019 MR/ED.DCSUM Comments: See Note; NOTES: [facility] [place] Medical Records Department [address] [place] [id number] Emergency Department Summary 06/25/19 MR#: [id number] Acct: [id number] Name: LETY SPENCER Rep #: [id number] : 1955 64 From: Florian Carey MD PCP: Dr. Elin Reynolds DO Status:REG ER History of Present Illness Chief Complaint: Shortness of Breath Narrative: 66-year-old female with a history of asthma presents with shortness of breath for several months. She has been taking regular albuterol treatments. She improved strangely but then continues to wheeze. Occasional cough but nothing new. No fever, chills, or body aches. This is somewhat of a chronic condition for her. She is not on home oxygen. She denies recent travel or immobilization. She denies lower extremity pain or swelling. The onset of her symptoms has been gradual. The severity is mild. She states that she has not left her house nor does she have any sick contacts. No exposure to coronavirus. No lower extremity pain or swelling. No chest pain. No diaphoresis or exertional symptoms. Past Medical History - Allergies and Home Meds Allergies/Adverse Reactions: Allergies buprenorphine [From Butrans] Allergy (Mild, Verified 06/25/19 11:12) Hives terbinafine Allergy (Mild, Verified 06/25/19 11:12) Rash codeine Allergy (Verified 06/25/19 11:12) Unknown nortriptyline Adverse Reaction (Mild, Verified 06/25/19 11:12) Upset Stomach omeprazole Adverse Reaction (Mild, Verified 06/25/19 11:12) Diarrhea Penicillins Adverse Reaction (Mild, Verified 06/25/19 11:12) yeast infection naproxen [From Naprosyn] Adverse Reaction (Verified 06/25/19 11:12) gi upset nortriptyline HCl [From Pamelor] Adverse Reaction (Verified 06/25/19 11:12) Upset Stomach Primary Care Physician: Elin Reynolds DO [Primary Care Provider] - Prior records reviewed: Yes Past Medical History: - - Severe asthma, Surgical History: tonsillectomy, - - Partial hysterectomy, tubal ligation, right breast biopsy, lumbar back surgery. Smoking Status: Never smoker - Family History Maternal Family History: Family History (Last Reviewed 04/21/19 @ 10:10 by Chanell Billy) Mother Anxiety Hypertension kidney/renal disease High cholesterol Brother Heart disease Cancer Father Heart disease Family History: Reports: Pulmonary Disease Paternal Family History: Family History (Last Reviewed 04/21/19 @ 10:10 by Chanell Billy) Mother Anxiety Hypertension kidney/renal disease High cholesterol Brother Heart disease Cancer Father Heart disease Family History: Reports: Heart Disease Review of Systems General: Denies: Chills, Fever, Sweats Eyes: Denies: Visual changes - bilaterally, Diplopia ENT: Denies: Rhinorrhea, Sore throat Cardiovascular: Denies: Chest pain, Palpitations Respiratory: Reports: Dyspnea. Denies: Cough, Dyspnea on exertion Gastrointestinal: Denies: Abdominal pain, Nausea, Vomiting, Diarrhea, Melena, Hematochezia Genitourinary: Denies: Dysuria, Hematuria, Frequency Musculoskeletal: Denies: Back pain, Extremity Pain Skin: Denies: Rash, Wounds Neurological: Denies: Headache, Weakness, Numbness Physical Exam Vital Signs/Narrative: Vital Signs Temp Pulse Resp BP Pulse Ox 06/25/19 11:09 97.4 F L 107 H 16 144/95 H 97 General: Well nourished, Well developed, No Acute Distress Head: Normocephalic, Atraumatic Eyes: Perrl, EOMI ENT: Moist mucous membranes, No rhinorrhea Neck: Supple, Nontender Cardiovascular: Regular rate, Regular rhythm, No murmurs Respiratory: No distress, Chest nontender, Wheezing Abdomen: Soft, Nontender, Nondistended, Normal bowel sounds Back: Nontender, Normal Inspection Extremities: Nontender, No edema Skin: Normal color, No rash Neurological: Alert, Oriented x3, Cranial nerves II-XII grossly intact, Normal Strength, Normal Sensation Psychological: Normal affect, Normal Mood Diagnostic/Tx/Re-eval - Medical Decision Making Labs are within normal limits.CXR is clear. She was still tachycardic so I ordered a CTA which was negative for PE. She looks well and is not in distress on re-eval. She wants to go home. She has no leukopenia or lymphopenia. No bilateral infiltrates to suggest coronavirus and no recent sick contacts. She feels strongly that this is her asthma and would like to be placed back on steroids. She has plenty of breathing treatments at home. She will return here if worse. ED Disposition - Plan for ED Patient: Disposition: Home or Assisted Living Diagnosis: Asthma exacerbation Instructions: Asthma Prescriptions: Prednisone [Deltasone] 40 mg PO DAILY #10 tablet Referrals: Elin Reynolds, DO [Primary Care Provider] - What to do if you have Problems For any increased pain, shortness of breath, bleeding, nausea or vomiting, chest pain, or any unexpected problems, contact your Primary Care Provider. Call [facility] ([phone]) or report to the closest Emergency Room. Call 911 if necessary. 06/25/19 9173 <Electronically signed by Florian Carey MD> Date Florian Durán Signature (If Indicated): Date CC: DO Elin Parker Start: 06-25-2019 End: 07-04-2019 12 Lead EKG Comments: See Note; NOTES: [facility] [place] Cardiovascular Services [address] [place] [address] 12 Lead EKG 06/25/19 1143 MR#: [id number] Acct: [id number] Name: LETY SPENCER Rep #: [id number] : 1955 64 From: John Hester MD Attending Dr: Status: DEP ER Ordering Dr: Florian Carey MD Date: 06/25/19 Location: ED Sex: F C Admitted: Test Reason : SOB Blood Pressure : / mmHG Vent. Rate : 097 BPM Atrial Rate : 097 BPM P-R Int : 134 ms QRS Dur : 086 ms QT Int : 352 ms P-R-T Axes : 002 026 072 degrees QTc Int : 447 ms Normal sinus rhythm Normal ECG Confirmed by LEVAR SANTANA, JOHN ([id number]), editor continuity and script DOUG CHAPPELL ([id number]) on 06/27/2019 3:17:32 PM Referred By: HO Confirmed By:JOHN HESTER MD 06/27/19 1517 Date John Hester MD CC: Dr. Florian Carey MD; Dr. Elin Reynolds DO Signed Elin Reynolds Start: 06-25-2019 End: 06-27-2019 Chest 1 View (Portable) Comments: See Note; NOTES: [facility] [place] Imaging Services [address] [place] [address] Chest 1 View (Portable) MR#: [id number] Acct: [id number] Name: LETY SPENCER Rep #: [id number] : 1955 F 64 From: Crow Kunh DO PCP: Dr. Elin Reynolds DO Status: REG ER Study: Chest 1 View (Portable) Date of Exam: 06/25/19 Exam# [id number] Ordering Dr: Florian Carey MD STUDY: X-RAY CHEST REASON FOR EXAM: Female, 64 years old. COUGH; HX OF ASTHMA TECHNIQUE: Frontal view COMPARISON: September 23, 2018 FINDINGS: The lungs are clear and expanded. There is no demonstrated pleural abnormality. Normal size heart. Normal mediastinum and clari. Normal visualized pulmonary arteries. Mildly calcified visualized aortic arch and descending thoracic aorta. Normal visualized thoracic spine. Normal visualized ribs, clavicles, and shoulders. There is no demonstrated abnormality of the visualized soft tissue structures of the upper abdomen. RAD/Chest 1 View (Portable) IMPRESSION: Normal x-ray examination of the chest. Electronically Signed: Crow Kuhn DO at 12:16 EDT Tel [phone], Service support , CC: Dr. Florian Carey MD; Dr. Elin Reynolds DO Clinical Biostatistics Director: Signed Elin Reynolds Start: 06-03-2019 End: 06-03-2019 Esophagus Single Contrast Comments: See Note; NOTES: [facility] [place] Imaging Services [address] [place] [address] Esophagus Single Contrast MR#: [id number] Acct: [id number] Name: LETY SPENCER Rep #: [id number] : 1955 F 64 From: Justin Ng MD PCP: Elin Reynolds DO Status: REG CLI Study: Esophagus Single Contrast Date of Exam: 06/03/19 Exam# [id number] Ordering Dr: Florian Cortez MD STUDY: AIR-CONTRAST ESOPHAGRAM STUDY REASON FOR EXAM: Female, 64 years old. Vomiting FLUOROSCOPY TIME (if supplied): (0:55) minutes/seconds, 16 images. TECHNIQUE: Barium pill swallow with sips of water is performed at the beginning of the study without difficulty. Multiple barium swallows were performed under fluoroscopic monitoring. Multiple views of the esophagus, the upper stomach were performed. COMPARISON: None. FINDINGS: Barium pill swallow with sips of water is performed at the beginning of the study without difficulty. The esophagus appears normal in size and shape it shows unremarkable mucosal pattern. There is no evidence of hiatal hernia or abnormal vascular compression. RAD/Esophagus Single Contrast IMPRESSION: Unremarkable study. Electronically Signed: Justin Ng, at 14:24 EDT Tel , Service support , CC: Antwan Cortez MD; Elin Reynolds DO Clinical Biostatistics Director: Signed Elin Reynolds Start: 04-21-2019 End: 04-21-2019 Pulmonary Visit Report Comments: See Note; NOTES: [facility] Pulmonary Medicine of [address] [place] [address] OFFICE VISIT Date of Service: 04/21/19 MR#: [id number] Acct: [id number] Name: LETY SPENCER Yuly Rep #: [id number] : 1955 Provider: Ayush Leblanc D.O. Age/Sex: 64/F Location: [facility] [place] [place].PMW Status: Signed Assessment AND Plan 1. Moderate persistent asthma without complication J45.40 Plan Symptomatically controlled with Breo Ellipta, Singulair and as needed albuterol. This regimen will be continued without change. I will defer management of the patient's chronic postnasal drip symptoms to ENT. 2. Post-nasal drip R09.82 Plan The patient has been compliant with the use of Flonase, but continues to have significant sinus drainage and postnasal drip. She is currently scheduled to follow-up with ENT next week. Plan Detail Other Medications Changed: From: albuterol sulfate 2.5 mg (3 mL) inhalation Q4HWA.RT PRN 180 vials 6RF Sob AND /Or Whee zing Follow Up 6 Months (CSM) HPI HPI Comments Details: The patient is a 64-year-old female who presents to the clinic today for a routine scheduled follow-up office visit due to underlying asthma. If you recall, I initially saw the patient in January 2016, after she presented to the clinic with an established asthma diagnosis. She was initially diagnosed sometime in her late 20s. She had been seen previously by a pulmonary provider at [facility] until 2008. She is a lifelong non-smoker. Current triggers for worsening of her breathing quality have included: Cold air and cigarette smoke exposure. She has a history of seasonal allergic rhinitis, as well. Pulmonary function testing completed in January 2016 showed the presence of a mild large airways obstructive ventilatory defect with an associated significant response to aerosolized bronchodilators. Repeat pulmonary function testing completed in March 2017 was grossly normal with stigmata of small airways disease. Laboratory Tests WBC 8.2 Eos % (Auto) 3.7 A.fumigatus Allerg IgE 0.13 H Cat Hair Allergen 1.30 H Today, the patient reports overall stability in her breathing quality. She remains compliant with the use of daily Breo Ellipta, Singulair and as needed albuterol. She states that she utilizes her rescue inhaler on average once every couple days. She does report subjective improvement in her cough with the use of the short acting bronchodilator. However, she continues to have a significant amount of sinus drainage and postnasal drip. She is currently scheduled to follow-up with Dr. Fournier next week. She denies any recent exacerbations. She denies fevers, chills or night sweats. Intake Vital Signs04/21/19 Height 5 ft 4 in 04/21/19 Weight: 215 lb 04/21/19 BMI 36.8 04/21/19 BP 142/83 H 04/21/19 Blood Pressure Location Lt brachial 04/21/19 Position Sitting 04/21/19 Respiration 18 Intake Visit Reasons: 3 M FU Allergies buprenorphine [From Butrans] Allergy (Mild, Verified 04/21/19 10:05) Hives terbinafine Allergy (Mild, Verified 04/21/19 10:05) Rash codeine Allergy (Verified 04/21/19 10:05) Unknown nortriptyline Adverse Reaction (Mild, Verified 04/21/19 10:05) Upset Stomach omeprazole Adverse Reaction (Mild, Verified 04/21/19 10:05) Diarrhea Penicillins Adverse Reaction (Mild, Verified 04/21/19 10:05) yeast infection naproxen [From Naprosyn] Adverse Reaction (Verified 04/21/19 10:05) gi upset nortriptyline HCl [From Pamelor] Adverse Reaction (Verified 04/21/19 10:05) Upset Stomach Medications Hydrochlorothiazide [Hctz] 12.5 mg PO DAILY 11/05/15 [History Confirmed 04/21/19] Pantoprazole Sodium [Protonix] 40 mg PO DAILY 11/05/15 [History Confirmed 04/21/19] Simvastatin [Zocor] 40 mg PO QHS 11/05/15 [History Confirmed 04/21/19] Lisinopril [Zestril] 10 mg PO QHS 07/09/17 [History Confirmed 04/21/19] Zolpidem Tartrate [Ambien] 10 mg PO QHS PRN 07/09/17 [History Confirmed 04/21/19] guaifenesin 1,200 mg tablet, extended release 12 hr 1,200 mg PO Q12H #30 tab 01/26/18 [Rx Confirmed 04/21/19] benzonatate 200 mg capsule 200 mg PO TID PRN #90 cap 04/19/18 [Rx Confirmed 04/21/19] fluticasone furoate 200 mcg-vilanterol 25 mcg/dose inhalation powder 1 inh INHALATION DAILY #1 device 06/29/18 [Rx Confirmed 04/21/19] fluticasone propionate 50 mcg/actuation nasal spray,suspension 2 spray INTRANASAL DAILY #18.2 g 07/20/18 [Rx Confirmed 04/21/19] cetirizine 10 mg capsule 10 mg PO HS #30 cap 11/24/18 [Rx Confirmed 04/21/19] montelukast 10 mg tablet 10 mg PO QPM #30 tab 12/06/18 [Rx Confirmed 04/21/19] albuterol sulfate 90 mcg/actuation aerosol inhaler 2 puff INHALATION Q4H PRN #1 device 04/01/19 [Rx Confirmed 04/21/19] azithromycin 250 mg tablet 250 mg PO QDAY #6 tab 04/06/19 [Rx Confirmed 04/21/19] prednisone 10 mg tablet 10 mg PO QDAY #30 tab 04/06/19 [Rx Confirmed 04/21/19] albuterol sulfate 2.5 mg INHALATION Q4H PRN #180 vial 04/21/19 [Rx Confirmed 04/21/19] PFS Medical History Exercise-induced bronchospasm (Chronic) Hypertension (Chronic) Hyperlipidemia (Chronic) GERD (gastroesophageal reflux disease) (Chronic) 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) Back pain, sacroiliac (Chronic) 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 Ayush Leblanc, DO) Smoking Status: Never smoker second hand exposure: No alcohol intake: never substance use type: does not use caffeine: No what type of physical activity do you participate in: none Review of Systems Const CONSTITUTIONAL: No anorexia, No body ache, No chills, No daytime sleepiness, No fever(s), No night sweats, No stops breathing during sleep, No weight loss, No weight gain, No sleeping in chair, No orthopnea, No fatigue, No headache(s), No frequent colds, No seasonal allergies, No other EETM Ear Nose Throat Mouth: No hoarseness, No Dry mouth in morning, No change in vision, No itchy eyes, No eye pain, No Swallowing Difficulty, No ear pain, No nose bleed, No headache(s), No mouth pain, No nasal congestion, No nasal discharge, No sinus pain, No sinus pressure, No sore throat, No other Cardio Cadriovascular: No chest pain, No chest pain at rest, No chest pain with activity, No irregular heart rhythm, No shortness of breath when lying down, No palpitations, No other Resp Respiratory: Yes as per HPI, No shortness of breath at rest, No pain with cough, No chest congestion, No cough, No chest tightness, No pain on inspiration, No Inhalers, No Increase use of Rescue Inhalers, No snoring, No apnea, No other Gastro Gastrointestional: Negative bloody stools, change in appetite, difficulty swallowing, reflux, hematemesis, melena stool, loose stool, constipation or other Genitourinary: Negative blood in urine, nocturia, pain with urination or other Musc Musculoskeletal: Negative body pain, back pain, neck pain or other Skin/Breast Skin/Breast: No dry skin, No itching, No unusual bruising, No breast lump, No other Neuro Neurological: Negative restless legs, confusion, weakness or other Psych Psychocological: Negative abnormal sleep pattern, anxiety, thoughts of hurting self/others, hopelessness or other Lymph Lymphatic: No easy bleeding, No easy bruising, No other Exam Const Constitutional: Positive conversant, cooperative, in no acute respiratory distress, well developed, well nourished, good hygiene and obese Head Head: Yes normocephalic, Yes atraumatic, No cyanosis of lips/distal nose Eyes Eye: Positive clear conjunctiva; negative nystagmus or scleral abnormality Ears Ear: Positive hearing normal and external ears normal; negative hard of hearing Nose Nose: Yes external nose normal Mouth Mouth: Positive oral mucosae normal and posterior oropharynx is adequate; negative no lesions or post nasal drip Mallampati Score: II: Mallampati Score Neck Neck: Positive normal visual inspection and trachea midline; negative lymphadenopathy Chest Wall Chest: Positive symmetric chest movement Normal AP diameter. Resp lung sounds: Positive good air exchange and normal expiratory time; negative wheezes, rhonchi or rales Cardio Cardiac: Positive regular rate, regular rhythm, S1 normal and S2 normal; negative murmur, rub or gallop GI GI: Positive obese Soft without distention Genitourinary: Positive deferred Musc Musculoskeletal: Positive steady gait Skin Pulmonary Skin Exam: Positive intact; negative lesion, rash, ulcers or dermal atrophy Pulses Pulse: Yes Pedal pulses present: Extremities Extremities: No clubbing, No cyanosis, No edema Neuro Neurologic: Yes no focal neuro deficits, Yes conversant Lymph Lymphatic: No lymphadenopathy Psych Appearance: Positive grossly normal Mental Status: Positive mental status grossly normal Mood: Positive congruent mood Affect: Positive normal affect Coding Level of Care Code Off vis,est,level 3 Diagnoses Moderate persistent asthma without complication J45.40 Asthma complication type: uncomplicated Asthma persistence: persistent Asthma severity: moderate Post-nasal drip R09.82 04/21/19 1052 <Electronically signed by Ayush Leblanc DO> Date Ayush Montoyaignherminio Signature: Date (if applicable) CC: Elin Alonso Start: 01-17-2019 End: 01-17-2019 Pulmonary Visit Report Comments: See Note; NOTES: [facility] Pulmonary Medicine [address] [place] [address] OFFICE VISIT Date of Service: 01/17/19 MR#: [id number] Acct: [id number] Name: LETY SPENCER Rep #: [id number] : 1955 Provider: MOLLY Oliveira Age/Sex: 63/F Location: [facility] [place], [place].[facility] Status: Signed Assessment AND Plan Problems 1. Moderate persistent asthma without complication J45.40 Plan Return to baseline. Continue current maintenance medications. Continue the prednisone taper until complete. Keep previously scheduled follow-up with supervisor [facility], she has a upcoming sinuplasty scheduled. Follow-up with Dr. Leblanc in 3 months. Contact the office with any new or worsening symptoms in the meantime. Plan Detail Follow Up 3 Months (JULIANNE) HPI 3 M FU: Chief Complaint: Cough HPI Comments Details: This patient presents to the office today to follow-up after recently being treated for an exacerbation of her asthma. She is ambulatory and currently on room air. She contacted the office by phone approximately 1 week ago with complaints of worsening shortness of breath and a productive cough. She was started on a Z-Peter and a prednisone taper. She has completed the Z-Peter as prescribed and is currently on the last day of the 20 mg dosing of prednisone. She begins a 10 mg dosing of prednisone tomorrow. She reports that she feels 90% improved. She still has head and nasal congestion. Her cough has completely resolved. She denies any wheezing, chest tightness, chest pain or palpitations. She does follow with supervisor [facility] and has an upcoming sinus plasty surgery scheduled. He believes that after the plasty her episodes of sinusitis will be significantly reduced or potentially resolved. She continues to utilize Breo daily. She reports rinsing her mouth out after each use. She denies any medication side effect such as sore throat or thrush. She continues to utilize Flonase daily. She has not needed to use her rescue inhaler as frequently over the past few days. Intake Vital Signs01/17/19 Body Mass Index (BMI) 36.6 Intake Visit Reasons: 3 M FU Allergies buprenorphine [From Butrans] Allergy (Mild, Verified 01/17/19 11:06) Hives terbinafine Allergy (Mild, Verified 01/17/19 11:06) Rash codeine Allergy (Verified 01/17/19 11:06) Unknown nortriptyline Adverse Reaction (Mild, Verified 01/17/19 11:06) Upset Stomach omeprazole Adverse Reaction (Mild, Verified 01/17/19 11:06) Diarrhea Penicillins Adverse Reaction (Mild, Verified 01/17/19 11:06) yeast infection naproxen [From Naprosyn] Adverse Reaction (Verified 01/17/19 11:06) gi upset nortriptyline HCl [From Pamelor] Adverse Reaction (Verified 01/17/19 11:06) Upset Stomach Medications Hydrochlorothiazide [Hctz] 12.5 mg PO DAILY 11/05/15 [History Confirmed 01/17/19] Pantoprazole Sodium [Protonix] 40 mg PO DAILY 11/05/15 [History Confirmed 01/17/19] Simvastatin [Zocor] 40 mg PO QHS 11/05/15 [History Confirmed 01/17/19] Lisinopril [Zestril] 10 mg PO QHS 07/09/17 [History Confirmed 01/17/19] Zolpidem Tartrate [Ambien] 10 mg PO QHS PRN 07/09/17 [History Confirmed 01/17/19] albuterol sulfate 2.5 mg/3 mL (0.083 %) solution for nebulization 2.5 mg INHALATION Q4HWA.RT PRN #180 vial 12/03/17 [Rx Confirmed 01/17/19] guaifenesin ER 1,200 mg tablet, extended release 12 hr 1,200 mg PO Q12H #30 tab 01/26/18 [Rx Confirmed 01/17/19] benzonatate 200 mg capsule 200 mg PO TID PRN #90 cap 04/19/18 [Rx Confirmed 01/17/19] albuterol sulfate HFA 90 mcg/actuation aerosol inhaler 2 puff INHALATION Q4H PRN #1 device 06/29/18 [Rx Confirmed 01/17/19] fluticasone furoate 200 mcg-vilanterol 25 mcg/dose inhalation powder 1 inh INHALATION DAILY #1 device 06/29/18 [Rx Confirmed 01/17/19] fluticasone propionate 50 mcg/actuation nasal spray,suspension 2 spray INTRANASAL DAILY #18.2 g 07/20/18 [Rx Confirmed 01/17/19] cetirizine 10 mg capsule 10 mg PO HS #30 cap 11/24/18 [Rx Confirmed 01/17/19] montelukast 10 mg tablet 10 mg PO QPM #30 tab 12/06/18 [Rx Confirmed 01/17/19] prednisone 10 mg tablet 10 mg PO QDAY #30 tab 01/10/19 [Rx Confirmed 01/17/19] [facility] History Exercise-induced bronchospasm (Chronic) History of hysterectomy (Resolved) Hypertension (Chronic) Hyperlipidemia (Chronic) GERD (gastroesophageal reflux disease) (Chronic) 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) Back pain, sacroiliac (Chronic) 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) Asthma (Chronic) Surgical History History of back surgery (Resolved) History of tubal ligation (Resolved) History of tonsillectomy (Resolved) History of D AND C (Resolved) History of right breast biopsy (Resolved) Family History Mother Anxiety Hypertension kidney/renal disease High cholesterol Brother Heart disease Cancer Bladder Cancer Father Heart disease Social History (Updated 01/17/19 @ 15:20 by MOLLY Banda) Smoking Status: Never smoker second hand exposure: No alcohol intake: never substance use type: does not use caffeine: No what type of physical activity do you participate in: none Review of Systems Const CONSTITUTIONAL: No anorexia, No body ache, No chills, No daytime sleepiness, No fever(s), No night sweats, No stops breathing during sleep, No weight loss, No weight gain, No sleeping in chair, No orthopnea, No fatigue, No headache(s), No frequent colds, No seasonal allergies, No other EETM Ear Nose Throat Mouth: No hoarseness, No Dry mouth in morning, No change in vision, No itchy eyes, No eye pain, No Swallowing Difficulty, No ear pain, No nose bleed, No headache(s), No mouth pain, No nasal congestion, No nasal discharge, No sinus pain, No sinus pressure, No sore throat, No other Cardio Cadriovascular: No chest pain, No chest pain at rest, No chest pain with activity, No irregular heart rhythm, No shortness of breath when lying down, No palpitations, No other Resp Respiratory: Yes as per HPI, No shortness of breath at rest, No pain with cough, No chest congestion, No cough, No chest tightness, No pain on inspiration, No Inhalers, No Increase use of Rescue Inhalers, No snoring, No apnea, No other Gastro Gastrointestional: Negative bloody stools, change in appetite, difficulty swallowing, reflux, hematemesis, melena stool, loose stool, constipation or other Genitourinary: Negative blood in urine, nocturia, pain with urination or other Musc Musculoskeletal: Negative body pain, back pain, neck pain or other Skin/Breast Skin/Breast: No dry skin, No itching, No unusual bruising, No breast lump, No other Neuro Neurological: Negative restless legs, confusion, weakness or other Psych Psychocological: Negative abnormal sleep pattern, anxiety, thoughts of hurting self/others, hopelessness or other Lymph Lymphatic: No easy bleeding, No easy bruising, No other Exam Const Constitutional: Positive conversant, cooperative, in no acute respiratory distress, well developed, well nourished, good hygiene and obese Head Head: Yes normocephalic, Yes atraumatic, No cyanosis of lips/distal nose Eyes Eye: Positive clear conjunctiva; negative nystagmus or scleral abnormality Ears Ear: Positive hearing normal and external ears normal; negative hard of hearing Nose Nose: Yes external nose normal Mouth Mouth: Positive oral mucosae normal and posterior oropharynx is adequate; negative no lesions or post nasal drip Mallampati Score: II: Mallampati Score Neck Neck: Positive normal visual inspection and trachea midline; negative lymphadenopathy Chest Wall Chest: Positive symmetric chest movement Normal AP diameter. Resp lung sounds: Positive good air exchange and normal expiratory time; negative wheezes, rhonchi or rales Cardio Cardiac: Positive regular rate, regular rhythm, S1 normal and S2 normal; negative murmur, rub or gallop GI GI: Positive obese Soft without distention Genitourinary: Positive deferred [facility] Musculoskeletal: Positive steady gait Skin Pulmonary Skin Exam: Positive intact; negative lesion, rash, ulcers or dermal atrophy Pulses Pulse: Yes radial pulses present Extremities Extremities: Yes capillary refill normal, No clubbing, No cyanosis, No edema Neuro Neurologic: Yes no focal neuro deficits, Yes conversant, Yes cooperative, Yes normal cognition, Yes normal coordination, Yes normal concentration, Yes understands questions, No tremor Lymph Lymphatic: No lymphadenopathy, No tenderness, No cervical adenopathy Psych Appearance: Positive grossly normal, eye contact and well kempt Mental Status: Positive mental status grossly normal Mood: Positive congruent mood Affect: Positive normal affect Coding Level of Care Code Off vis,est,level 3 Diagnoses Moderate persistent asthma without complication J45.40 Asthma severity: moderate Asthma persistence: persistent Asthma complication type: uncomplicated 01/17/19 1520 <Electronically signed by Roya BARNES> Date Roya Durán Signature: Date (if applicable) CC: Elin Alonso Start: 12-30-2018 End: 12-30-2018 Pulmonary Visit Report Comments: See Note; NOTES: [facility] [place] [address] [place] [address] OFFICE VISIT Date of Service: 12/30/18 MR#: [id number] Acct: [id number] Name: LETY SPENCER Rep #: [id number] : 1955 Provider: Ayush Leblanc D.O. Age/Sex: 63/F [facility] Status: Signed Assessment AND Plan 1. Moderate persistent asthma without complication J45.40 Plan Over the course of the last year, the patient has been treated multiple times with prednisone for exacerbations. Her exhaled nitric oxide level at today's office visit was elevated at 27 PPB. Inhaler technique was reviewed with the patient. With this in mind, we will plan to check CBC with differential to evaluate for peripheral eosinophilia along with IgE and RAST profile. The patient is to be continued on daily Breo Ellipta, Singulair and as needed albuterol in the interim. The patient's chronic sinus related issues will be referred to ENT. Result: Oral exhaled NO (ppb): 27 Normal: 5-20 ppb (Adult) High Normal/Increased: 20-35 ppb (Adult). Moderately raised exhaled nitric oxide may indicate underlying inflammation, but notes that cold and influenza can raise exhaled nitric oxide in some patients have higher baseline levels than others. High: >35 ppb (Adult). Indicative of ongoing eosinophilic inflammation. Symptomatic patient likely to respond to steroids. Possible causes include: Poor compliance, recent allergen exposure, steroid dose inadequate, and steroid resistance. Orders Orders: 2. Chronic sinusitis J32.9 Plan The patient continues to experience chronic sinus related issues and postnasal drip, despite the use of Flonase. The patient is going to be referred to ENT for evaluation and potential allergy testing. Orders Referrals: Plan Detail Follow Up 3 Months (CSM) HPI HPI Comments Details: The patient is a 63-year-old female who presents to the clinic today for a routine scheduled follow-up office visit due to underlying asthma. If you recall, I initially saw the patient in January 2016, after she presented to the clinic with an established asthma diagnosis. She was initially diagnosed sometime in her late 20s. She had been seen previously by a pulmonary provider at [facility] until 2008. She is a lifelong non-smoker. Current triggers for worsening of her breathing quality have included: Cold air and cigarette smoke exposure. She has a history of seasonal allergic rhinitis, as well. Pulmonary function testing completed in January 2016 showed the presence of a mild large airways obstructive ventilatory defect with an associated significant response to aerosolized bronchodilators. Repeat pulmonary function testing completed in March 2017 was grossly normal with stigmata of small airways disease. Today, the patient reports that over the course of the last year she has been treated multiple times for exacerbations with prednisone. She was last evaluated in the emergency department in September, at which time, she was treated with prednisone for an exacerbation. She has remained compliant with the use of daily Breo Ellipta, Singulair and as needed albuterol. At the present time, she reports that she is utilizing her rescue inhaler on average 3-4 times per week. She typically utilizes her rescue inhaler due to symptoms that include cough and shortness of breath. She does report symptom improvement with use of her rescue inhaler. She oftentimes experiences intermittent wheezing as well. The patient is also concerned about chronic sinus drainage and postnasal drip, despite the use of Flonase. Intake Vital Signs12/30/18 Height 5 ft 4 in 12/30/18 Weight: 213 lb 12/30/18 Body Mass Index (BMI) 36.6 12/30/18 Blood Pressure Location Lt brachial 12/30/18 Blood Pressure Position Sitting Intake Visit Reasons: 6 M FU Accompanied by: Self Allergies buprenorphine [From Butrans] Allergy (Mild, Verified 12/30/18 10:52) Hives terbinafine Allergy (Mild, Verified 12/30/18 10:52) Rash codeine Allergy (Verified 12/30/18 10:52) Unknown nortriptyline Adverse Reaction (Mild, Verified 12/30/18 10:52) Upset Stomach omeprazole Adverse Reaction (Mild, Verified 12/30/18 10:52) Diarrhea Penicillins Adverse Reaction (Mild, Verified 12/30/18 10:52) yeast infection naproxen [From Naprosyn] Adverse Reaction (Verified 12/30/18 10:52) gi upset nortriptyline HCl [From Pamelor] Adverse Reaction (Verified 12/30/18 10:52) Upset Stomach Medications Hydrochlorothiazide [Hctz] 12.5 mg PO DAILY 11/05/15 [History Confirmed 12/30/18] Pantoprazole Sodium [Protonix] 40 mg PO DAILY 11/05/15 [History Confirmed 12/30/18] Simvastatin [Zocor] 40 mg PO QHS 11/05/15 [History Confirmed 12/30/18] Lisinopril [Zestril] 10 mg PO QHS 07/09/17 [History Confirmed 12/30/18] Zolpidem Tartrate [Ambien] 10 mg PO QHS PRN 07/09/17 [History Confirmed 12/30/18] albuterol sulfate 2.5 mg/3 mL (0.083 %) solution for nebulization 2.5 mg INHALATION Q4HWA.RT PRN #180 vial 12/03/17 [Rx Confirmed 12/30/18] guaifenesin ER 1,200 mg tablet, extended release 12 hr 1,200 mg PO Q12H #30 tab 01/26/18 [Rx Confirmed 12/30/18] benzonatate 200 mg capsule 200 mg PO TID PRN #90 cap 04/19/18 [Rx Confirmed 12/30/18] albuterol sulfate HFA 90 mcg/actuation aerosol inhaler 2 puff INHALATION Q4H PRN #1 device 06/29/18 [Rx Confirmed 12/30/18] fluticasone furoate 200 mcg-vilanterol 25 mcg/dose inhalation powder 1 inh INHALATION DAILY #1 device 06/29/18 [Rx Confirmed 12/30/18] fluticasone propionate 50 mcg/actuation nasal spray,suspension 2 spray INTRANASAL DAILY #18.2 g 07/20/18 [Rx Confirmed 12/30/18] cetirizine 10 mg capsule 10 mg PO HS #30 cap 11/24/18 [Rx Confirmed 12/30/18] montelukast 10 mg tablet 10 mg PO QPM #30 tab 12/06/18 [Rx Confirmed 12/30/18] PFSH Medical History Exercise-induced bronchospasm (Chronic) History of hysterectomy (Resolved) Hypertension (Chronic) Hyperlipidemia (Chronic) GERD (gastroesophageal reflux disease) (Chronic) 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) Back pain, sacroiliac (Chronic) 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) Asthma (Chronic) Surgical History History of back surgery (Resolved) History of tubal ligation (Resolved) History of tonsillectomy (Resolved) History of D AND C (Resolved) History of right breast biopsy (Resolved) Family History Mother Anxiety Hypertension kidney/renal disease High cholesterol Brother Heart disease Cancer Bladder Cancer Father Heart disease Social History (Updated 12/30/18 @ 11:54 by Ayush Leblanc DO) Smoking Status: Never smoker second hand exposure: No alcohol intake: never substance use type: does not use caffeine: No what type of physical activity do you participate in: none Review of Systems Const CONSTITUTIONAL: No anorexia, No body ache, No chills, No daytime sleepiness, No fever(s), No night sweats, No stops breathing during sleep, No weight loss, No weight gain, No sleeping in chair, No orthopnea, No fatigue, No headache(s), No frequent colds, No seasonal allergies, No other EETM Ear Nose Throat Mouth: No hoarseness, No Dry mouth in morning, No change in vision, No itchy eyes, No eye pain, No Swallowing Difficulty, No ear pain, No nose bleed, No headache(s), No mouth pain, No nasal congestion, Yes nasal discharge, No sinus pain, No sinus pressure, No sore throat, No other Cardio Cadriovascular: No chest pain, No chest pain at rest, No chest pain with activity, No irregular heart rhythm, No shortness of breath when lying down, No palpitations, No other Resp Respiratory: Yes as per HPI, No shortness of breath at rest, No pain with cough, No chest congestion, Yes cough, No chest tightness, No pain on inspiration, No Inhalers, No Increase use of Rescue Inhalers, No snoring, No apnea, No other Gastro Gastrointestional: Negative bloody stools, change in appetite, difficulty swallowing, reflux, hematemesis, melena stool, loose stool, constipation or other Genitourinary: Negative blood in urine, nocturia, pain with urination or other Musc Musculoskeletal: Negative body pain, back pain, neck pain or other Skin/Breast Skin/Breast: No dry skin, No itching, No unusual bruising, No breast lump, No other Neuro Neurological: Negative restless legs, confusion, weakness or other Psych Psychocological: Negative abnormal sleep pattern, anxiety, thoughts of hurting self/others, hopelessness or other Lymph Lymphatic: No easy bleeding, No easy bruising, No other Exam Const Constitutional: Positive conversant, cooperative, in no acute respiratory distress, well developed, well nourished, good hygiene and obese Head Head: Yes normocephalic, Yes atraumatic, No cyanosis of lips/distal nose Eyes Eye: Positive clear conjunctiva; negative nystagmus or scleral abnormality Ears Ear: Positive hearing normal and external ears normal; negative hard of hearing Nose Nose: Yes external nose normal Mouth Mouth: Positive oral mucosae normal and posterior oropharynx is adequate; negative no lesions or post nasal drip Mallampati Score: II: Mallampati Score Neck Neck: Positive normal visual inspection and trachea midline; negative lymphadenopathy Chest Wall Chest: Positive symmetric chest movement Normal AP diameter. Resp lung sounds: Positive good air exchange and normal expiratory time; negative wheezes, rhonchi or rales Cardio Cardiac: Positive regular rate, regular rhythm, S1 normal and S2 normal; negative murmur, rub or gallop GI GI: Positive obese Soft without distention Genitourinary: Positive deferred Musc Musculoskeletal: Positive steady gait Skin Pulmonary Skin Exam: Positive intact; negative lesion, rash, ulcers or dermal atrophy Pulses Pulse: Yes Pedal pulses present: Extremities Extremities: No clubbing, No cyanosis, No edema Neuro Neurologic: Yes no focal neuro deficits, Yes conversant, Yes cooperative Lymph Lymphatic: No lymphadenopathy Psych Appearance: Positive grossly normal Mental Status: Positive mental status grossly normal Mood: Positive congruent mood Affect: Positive normal affect Office Procedures NIOX NIOX Result NIOX: 27 Coding Level of Care Code Off vis,est,level 4 Diagnoses Moderate persistent asthma without complication J45.40 Asthma complication type: uncomplicated Asthma persistence: persistent Asthma severity: moderate Chronic sinusitis J32.9 12/30/18 1154 <Electronically signed by Ayush Leblanc DO> Date Ayush Leblanc DO Cosigner Signature: Date (if applicable) CC: Elin Alonso Start: 09-23-2018 End: 09-23-2018 Discharge Instruction Comments: See Note; NOTES: [facility] [facility] [place] Medical Records Department [address] [place] [address] Discharge Instruction 09/23/182015 MR#: [id number] Acct: [id number] Name: LETY SPENCER Rep #: [id number] : 1955 63 From: Bret Torres MD PCP: Elin Reynolds DO Status: DEP ER ED Disposition - Plan for ED Patient: Disposition: Home or Assisted Living Instructions: BRONCHITIS with Wheezing (Adult) Prescriptions: Prednisone [Deltasone] 40 mg PO DAILY 10 Days tab Prescription Printed Azithromycin [Zithromax Z-Peter] 250 mg PO UD #1 box Prescription Printed Referrals: Elin Reynolds DO [Primary Care Provider] - 1 Week if not improving Additional Instructions: Use your inhaler nebulizer at home Prednisone 40 mg a day may stop early if you are feeling better. Return if feeling worse. What to do if you have Problems For any increased pain, shortness of breath, bleeding, nausea or vomiting, chest pain, or any unexpected problems, contact your Primary Care Provider. Call [facility] ([phone]) or report to the closest Emergency Room. Call 911 if necessary. 09/23/18 3186 <Electronically signed by Bret Torres MD> Date Bret Torres MD Cosigner Signature (If Indicated): Date CC: Elin Alonso Start: 09-23-2018 End: 09-23-2018 Emergency Department Summary Comments: See Note; NOTES : [facility] [place] Medical Records Department [address] [place] [address] Emergency Department Summary 09/23/18 1924 MR#: [id number] Acct: [id number] Name: LETY SPENCER Rep #: [id number] : 1955 63 From: Bret Torres MD PCP: Elin Reynolds DO Status: DEP ER - ER Visit Summary Date of Service: 09/23/18 Chief Complaint: Cough and wheezing History of Present Illness: The patient is a 63 F history of asthma hypertension and prior TIA. Negative cardiac catheterization in the past. Patient states that since Thursday she had a cough sometimes productive of yellowish sputum. No hemoptysis. No chest pain. Trouble breathing with excessive wheezing. She has inhaler nebulizer at home which she is been using. She does currently not have any steroids and she is on no antibiotic. Physical Examination: Older female vital signs stable pulse ox 95% on room air no signs of hypoxia. HEENT exam unremarkable. Moist week's membranes. Neck nontender no lymphadenopathy. Lungs prolonged expiratory phase bilaterally. Inspiratory and expiratory wheezing bilaterally. No rales or rhonchi. Heart regular rhythm rate about 105 no murmur. Abdomen soft and nontender. Moving all 4 extremities. Calves are nontender no edema bilaterally. Neurologically she is awake and alert with no focal motor deficits. Test Results: Chest x-ray 2 views shows acute abnormality. Read both by myself and radiologist. Emergency Department Course and Treatment: Patient with bronchitis acute exacerbation of asthma. Treated with DuoNeb and albuterol aerosols. Oral prednisone. Treatment Plan: On repeat exam patient is doing better at 2015 p.m. We discussed her chest x-ray and home treatment. Discharged home on prednisone 40 mg a day for 10 days. Continue her aerosols and inhalers at home. Return if worse. Disposition: Discharge Impression: Acute bronchitis with acute exacerbation of asthma Bronchospasm This note was generated with [id number] dictation software. It may contain incorrect words, spelling, and punctuation that were not noted in review of the chart prior to signing ED Disposition - Plan for ED Patient: Disposition: Home or Assisted Living Referrals: Elin Reynolds DO [Primary Care Provider] - What to do if you have Problems For any increased pain, shortness of breath, bleeding, nausea or vomiting, chest pain, or any unexpected problems, contact your Primary Care Provider. Call [facility] ([phone]) or report to the closest Emergency Room. Call 911 if necessary. 09/23/18 9879 <Electronically signed by Bret Torres MD> Date Bret Torres MD Cosigner Signature (If Indicated): Date CC: Elin Alonso Start: 09-23-2018 End: 09-23-2018 Chest PA and Lateral Comments: See Note; NOTES: [facility] [place] Imaging Services [address] [place] [id number] Chest PA and Lateral MR#: [id number] Acct: [id number] Name: LETY SPENCER Rep #: [id number] : 1955 F 63 From: Radha Dawn MD PCP: Elin Reynolds DO Status: REG ER Study: Chest PA and Lateral Date of Exam: 09/23/18 Exam# [id number] Ordering Dr: Bret Torres MD STUDY: X-RAY CHEST REASON FOR EXAM: Female, 63 years old. Shortness of breath TECHNIQUE: 2 views COMPARISON: Prior chest radiograph of July 09, 2017 FINDINGS: The lungs are clear and expanded. There is no demonstrated pleural abnormality. Normal size heart. Normal mediastinum and clari. Normal visualized pulmonary arteries. There is atherosclerotic calcification of the aortic arch with tortuosity. There are diffuse degenerative changes of the visualized thoracic spine. There is degenerative osteoarthritis of the bilateral shoulders. There is no demonstrated abnormality of the visualized soft tissue structures of the upper abdomen. RAD/Chest PA and Lateral IMPRESSION: No acute cardiopulmonary findings or changes. Negative for new consolidation, focal atelectasis, pleural effusion or cardiomegaly. Electronically Signed: Radha Dawn MD at 19:58 EDT , Service support , CC: Bret Torres MD; Elin Reynolds DO Clinical Biostatistics Director: Signed Bryanna Crenshaw Work Phone: Start: 07-16-2018 End: 07-16-2018 SCREEN MAMM (CAD) W/ROB BILAT Comments: See Note; NOT ES: [facility] [place] Imaging Services [address] [place] [address] SCREEN MAMM (CAD) W/ROB BILAT MR#: [id number] Acct: [id number] Name: LETY SPENCER Rep #: [id number] : 1955 F 63 From: Tashi Mathias MD PCP: Elin Reynolds DO Status: [facility] Study: SCREEN MAMM (CAD) W/ROB BILAT Date of Exam: 07/16/18 Exam# [id number] Ordering Dr: Elin Reynolds DO MAMMOGRAPHY - BILATERAL SCREENING REASON FOR EXAM: Female, 63 years old. Routine annual screening examination. PERTINENT HISTORY: Non-contributory. Remote right excisional breast biopsy. TECHNIQUE: Digital bilateral breast rob (3D mammographic acquisition) in the CC and MLO projections. 2-D mediolateral oblique (MLO) and craniocaudad (CC) views of both breasts were obtained. CAD: Full Field Digital Mammography with Computer Added Detection was performed. COMPARISON: Comparison is made with prior study dated July 06, 2017 and June 30, 2016. FINDINGS: Breast Composition: There are scattered areas of fibroglandular density. There are no dominant masses or suspicious calcifications. No other significant abnormalities are identified. There has been no significant change since the prior study. BI/SCREEN MAMM (CAD) W/ROB BILAT IMPRESSION: Stable bilateral screening mammogram. Yearly follow-up mammogram recommended. (A) ASSESSMENT CATEGORY: BIRADS Category 1: Negative. A letter regarding these results will be sent to the patient by the facility within 30 days. Approximately 10% of breast cancers are not detected by mammography. A normal mammogram should not delay biopsy of a clinically suspicious abnormality. [id number] Electronically Signed: Tashi Mathias, at 13:33 EDT , Service support , CC: Elin Reynolds DO Clinical Biostatistics Director: Signed Elin Reynolds Work Phone: Start: 06-29-2018 End: 06-29-2018 Pulmonary Visit Report Comments: See Note; NOTES: [facility] [place] [address] [place] [address] OFFICE VISIT Date of Service: 06/29/18 MR#: [id number] Acct: [id number] Name: LETY SPENCER Rep #: [id number] : 1955 Provider: Ayush Leblanc D.O. Age/Sex: 63/F Location: [facility] Status: Signed Assessment AND Plan 1. Moderate persistent asthma without complication J45.40 Plan Symptomatically well controlled with the use of Breo Ellipta daily and as needed albuterol. This inhaler regimen will be continued without change. Refills will be provided. The patient was advised to call our office with any worsening in her breathing quality and/or increased reliance on her short acting beta agonist. Plan Detail Other Medications New: fluticasone furoate-vilanterol 200-25 mcg/dose (Breo 1 inh inhalation DAILY 1 device 6RF Ellipta) Follow Up 6 Months (DMB) HPI HPI Comments Details: The patient is a 63-year-old female who presents to the clinic today for a routine scheduled follow-up office visit due to underlying asthma. If you recall, I initially saw the patient in January 2016, after she presented to the clinic with an established asthma diagnosis. She was initially diagnosed sometime in her late 20s. She also reported issues with exercise-induced bronchospasm. She had been seen previously by a pulmonary provider at [facility] until 2008. She is a lifelong non-smoker. Current triggers for worsening of her breathing quality have included: Cold air and cigarette smoke exposure. She has a history of seasonal allergic rhinitis. Pulmonary function testing completed in January 2016 showed the presence of a mild large airways obstructive ventilatory defect with an associated significant response to aerosolized bronchodilators. The patient's prior RAST test was largely unremarkable. Serum IgE level was 38. Repeat pulmonary function testing completed in March 2017 was grossly normal with stigmata of small airways disease. Today, the patient reports overall stability in her breathing quality. Over the course of the winter, she was treated by our nurse practitioner for exacerbations x2. The patient currently reports that her exertional shortness of breath is unchanged from previous. She denies any significant chest tightness, wheezing or cough. She has been compliant with the use of Breo Ellipta daily. She reports that on average she utilizes her rescue inhaler one time per month. She is in need of medication refills today. Her weight has remained stable. She denies fevers, chills or night sweats. Intake Vital Signs06/29/18 Height 5 ft 4 in 06/29/18 Weight: 212 lb Intake Visit Reasons: 6 M FU Accompanied by: Self Allergies buprenorphine [From Butrans] Allergy (Mild, Verified 02/08/18 10:16) Hives terbinafine Allergy (Mild, Verified 02/08/18 10:16) Rash codeine Allergy (Verified 02/08/18 10:16) Unknown nortriptyline Adverse Reaction (Mild, Verified 02/08/18 10:16) Upset Stomach omeprazole Adverse Reaction (Mild, Verified 02/08/18 10:16) Diarrhea Penicillins Adverse Reaction (Mild, Verified 02/08/18 10:16) yeast infection naproxen [From Naprosyn] Adverse Reaction (Verified 02/08/18 10:16) gi upset nortriptyline HCl [From Pamelor] Adverse Reaction (Verified 02/08/18 10:16) Upset Stomach Medications Hydrochlorothiazide [Hctz] 12.5 mg PO DAILY 11/05/15 [History Confirmed 02/08/18] Pantoprazole Sodium [Protonix] 40 mg PO DAILY 11/05/15 [History Confirmed 02/08/18] Simvastatin [Zocor] 40 mg PO QHS 11/05/15 [History Confirmed 02/08/18] albuterol sulfate HFA 90 mcg/actuation aerosol inhaler 2 puff INHALATION Q6H PRN PRN #3 device 02/26/17 [Rx Confirmed 02/08/18] Lisinopril [Zestril] 10 mg PO QHS 07/09/17 [History Confirmed 02/08/18] Zolpidem Tartrate [Ambien] 10 mg PO QHS PRN 07/09/17 [History Confirmed 02/08/18] albuterol sulfate 2.5 mg/3 mL (0.083 %) solution for nebulization 2.5 mg INHALATION Q4HWA.RT PRN #180 vial 12/03/17 [Rx Confirmed 02/08/18] fluticasone furoate 200 mcg-vilanterol 25 mcg/dose inhalation powder 1 ea INHALATION DAILY #60 ea 12/03/17 [Rx Confirmed 02/08/18] fluticasone propionate 50 mcg/actuation nasal spray,suspension 2 spray INTRANASAL DAILY #18.2 g 01/14/18 [Rx Confirmed 02/08/18] guaifenesin ER 1,200 mg tablet, extended release 12 hr 1,200 mg PO Q12H #30 tab 01/26/18 [Rx Confirmed 02/08/18] nystatin 100,000 unit/mL oral suspension 5 ml MUCOUS MEMBRANE TID #250 ml 02/08/18 [Rx Confirmed 02/08/18] prednisone 20 mg tablet 60 mg PO QDAY #12 tab 04/06/18 [Rx] benzonatate 200 mg capsule 200 mg PO TID PRN #90 cap 04/19/18 [Rx Confirmed 04/19/18] albuterol sulfate HFA 90 mcg/actuation aerosol inhaler 2 puff INHALATION Q4H PRN #1 device 06/29/18 [Rx Confirmed 06/29/18] fluticasone furoate 200 mcg-vilanterol 25 mcg/dose inhalation powder 1 inh INHALATION DAILY #1 device 06/29/18 [Rx Confirmed 06/29/18] PFSH Medical History Exercise-induced bronchospasm (Chronic) History of hysterectomy (Resolved) Hypertension (Chronic) Hyperlipidemia (Chronic) GERD (gastroesophageal reflux disease) (Chronic) 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) Back pain, sacroiliac (Chronic) 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) Asthma (Chronic) Surgical History History of back surgery (Resolved) History of tubal ligation (Resolved) History of tonsillectomy (Resolved) History of D AND C (Resolved) History of right breast biopsy (Resolved) Family History Mother Anxiety Hypertension kidney/renal disease High cholesterol Brother Heart disease Cancer Bladder Cancer Father Heart disease Social History Smoking Status: Never smoker second hand exposure: No alcohol intake: never substance use type: does not use caffeine: No what type of physical activity do you participate in: none Review of Systems Const CONSTITUTIONAL: No anorexia, No body ache, No chills, No daytime sleepiness, No fever(s), No night sweats, No stops breathing during sleep, No weight loss, No weight gain, No sleeping in chair, No orthopnea, No fatigue, No headache(s), No frequent colds, No seasonal allergies, No other EETM Ear Nose Throat Mouth: No hoarseness, No Dry mouth in morning, No change in vision, No itchy eyes, No eye pain, No Swallowing Difficulty, No ear pain, No nose bleed, No headache(s), No mouth pain, No nasal congestion, No nasal discharge, No sinus pain, No sinus pressure, No sore throat, No other Cardio Cadriovascular: No chest pain, No chest pain at rest, No chest pain with activity, No irregular heart rhythm, No shortness of breath when lying down, No palpitations, No other Resp Respiratory: Yes as per HPI, No shortness of breath at rest, No pain with cough, No chest congestion, No cough, Yes chest tightness, No pain on inspiration, No Inhalers, No Increase use of Rescue Inhalers, No snoring, No apnea, No other Gastro Gastrointestional: Negative bloody stools, change in appetite, difficulty swallowing, reflux, hematemesis, melena stool, loose stool, constipation or other Genitourinary: Negative blood in urine, nocturia, pain with urination or other Musc Musculoskeletal: Negative body pain, back pain, neck pain or other Skin/Breast Skin/Breast: No dry skin, No itching, No unusual bruising, No breast lump, No other Neuro Neurological: Negative restless legs, confusion, weakness or other Psych Psychocological: Negative abnormal sleep pattern, anxiety, thoughts of hurting self/others, hopelessness or other Lymph Lymphatic: No easy bleeding, No easy bruising, No other Exam Const Constitutional: Positive conversant, cooperative, in no acute respiratory distress, well developed, well nourished, good hygiene and obese Head Head: Yes normocephalic, Yes atraumatic, No cyanosis of lips/distal nose Eyes Eye: Positive clear conjunctiva; negative nystagmus or scleral abnormality Ears Ear: Positive hearing normal and external ears normal; negative hard of hearing Nose Nose: Yes external nose normal Mouth Mouth: Positive oral mucosae normal and posterior oropharynx is adequate; negative no lesions or post nasal drip Mallampati Score: II: Mallampati Score Neck Neck: Positive normal visual inspection and trachea midline; negative lymphadenopathy Chest Wall Chest: Positive symmetric chest movement Normal AP diameter. Resp lung sounds: Positive clear to auscultation, good air exchange and normal expiratory time; negative wheezes, rhonchi or rales Cardio Cardiac: Positive regular rate, regular rhythm, S1 normal and S2 normal; negative murmur, rub or gallop GI GI: Positive normal bowel sounds and obese Soft without distention Genitourinary: Positive deferred Musc Musculoskeletal: Positive steady gait Skin Pulmonary Skin Exam: Positive intact; negative lesion, rash, ulcers or dermal atrophy Pulses Pulse: Yes Pedal pulses present: Extremities Extremities: No clubbing, No cyanosis, No edema Neuro Neurologic: Yes no focal neuro deficits, Yes conversant, Yes cooperative, Yes normal cognition Lymph Lymphatic: No lymphadenopathy Psych Appearance: Positive grossly normal Mental Status: Positive mental status grossly normal Mood: Positive congruent mood Affect: Positive normal affect Coding Level of Care Code Off vis,est,level 3 Diagnoses Moderate persistent asthma without complication J45.40 Asthma complication type: uncomplicated Asthma persistence: persistent Asthma severity: moderate 06/29/18 0955 <Electronically signed by Ayush Leblanc DO> Date Ayush Leblanc DO Cosigner Signature: Date (if applicable) CC: Elin Alonso Start: 04-19-2018 End: 04-19-2018 Pulmonary Visit Report Comments: See Note; NOTES: [facility] [address] [place] [address] OFFICE VISIT Date of Service: 04/19/18 MR#: [id number] Acct: [id number] Name: LETY SPENCER Rep #: [id number] : 1955 Provider: Roya Oliveira Age/Sex: 63/F Location: [facility] [place] [place].[facility] Status: Signed Assessment AND Plan 1. Parotid swelling R60.9 Plan New. Suggested the patient treat with sour candies such as lemon drops. She conveys understanding. If symptoms do not resolve over the next 7-10 days she has been encouraged to follow with her PCP. 2. Acute nasopharyngitis J00 Plan New. Likely viral in nature. Treat symptoms such as fluids, rest, NSAIDs for pain. Tessalon Perles ordered for the cough. No need for prednisone as she is not wheezing. Continue all maintenance medications. Keep previously scheduled routine follow-up with Dr. Leblanc. Contact the office with any new or worsening symptoms. Plan Detail Other Medications New: HPI cough: Chief Complaint: Cough HPI Comments Details: This patient presents the office today for acute visit regarding cough. She is ambulatory, currently in room air and accompanied today by her . She was recently treated for an exacerbation of her asthma approximately 2 weeks ago. She was given a prednisone burst which she completed. Symptoms had completely resolved, however 4 days ago she began to experience new symptoms. Currently she has a persistent dry cough, denies any sputum production or hemoptysis. She is also experiencing chest congestion, nasal congestion and nasal discharge that is yellow. She also reports that the left side of her face is tender, most specifically she points to the area mid cheek. She denies any sinus pressure or ear pain. She has not had any headaches. She is compliant with Brio daily. She rinse her mouth out after each use and denies any medication side effects such as sore throat or thrush. She has been using her albuterol nebulizer twice daily since her cough presented. She has not added any cxzo-asu-edideya medications to treat her symptoms. She denies any fever, chills or body aches. She denies any fatigue. See complete review of systems. 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 Accompanied by: Is patient in pain?: Yes (left side of face ) Pain scale (1-10): 7 Allergies buprenorphine [From Butrans] Allergy (Mild, Verified 02/08/18 10:16) Hives terbinafine Allergy (Mild, Verified 02/08/18 10:16) Rash codeine Allergy (Verified 02/08/18 10:16) Unknown nortriptyline Adverse Reaction (Mild, Verified 02/08/18 10:16) Upset Stomach omeprazole Adverse Reaction (Mild, Verified 02/08/18 10:16) Diarrhea Penicillins Adverse Reaction (Mild, Verified 02/08/18 10:16) yeast infection naproxen [From Naprosyn] Adverse Reaction (Verified 02/08/18 10:16) gi upset nortriptyline HCl [From Pamelor] Adverse Reaction (Verified 02/08/18 10:16) Upset Stomach Medications Hydrochlorothiazide [Hctz] 12.5 mg PO DAILY 11/05/15 [History Confirmed 02/08/18] Pantoprazole Sodium [Protonix] 40 mg PO DAILY 11/05/15 [History Confirmed 02/08/18] Simvastatin [Zocor] 40 mg PO QHS 11/05/15 [History Confirmed 02/08/18] albuterol sulfate HFA 90 mcg/actuation aerosol inhaler 2 puff INHALATION Q6H PRN PRN #3 device 02/26/17 [Rx Confirmed 02/08/18] Lisinopril [Zestril] 10 mg PO QHS 07/09/17 [History Confirmed 02/08/18] Zolpidem Tartrate [Ambien] 10 mg PO QHS PRN 07/09/17 [History Confirmed 02/08/18] albuterol sulfate 2.5 mg/3 mL (0.083 %) solution for nebulization 2.5 mg INHALATION Q4HWA.RT PRN #180 vial 12/03/17 [Rx Confirmed 02/08/18] fluticasone 200 mcg-vilanterol 25 mcg/dose powder for inhalation 1 ea INHALATION DAILY #60 ea 12/03/17 [Rx Confirmed 02/08/18] fluticasone 50 mcg/actuation nasal spray,suspension 2 spray INTRANASAL DAILY #18.2 g 01/14/18 [Rx Confirmed 02/08/18] guaifenesin ER 1,200 mg tablet, extended release 12 hr 1,200 mg PO Q12H #30 tab 01/26/18 [Rx Confirmed 02/08/18] nystatin 100,000 unit/mL oral suspension 5 ml MUCOUS MEMBRANE TID #250 ml 02/08/18 [Rx Confirmed 02/08/18] prednisone 20 mg tablet 60 mg PO QDAY #12 tab 04/06/18 [Rx] benzonatate 200 mg capsule 200 mg PO TID PRN #90 cap 04/19/18 [Rx Confirmed 04/19/18] PFSH Medical History Exercise-induced bronchospasm (Chronic) History of hysterectomy (Resolved) Hypertension (Chronic) Hyperlipidemia (Chronic) GERD (gastroesophageal reflux disease) (Chronic) 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) Back pain, sacroiliac (Chronic) 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) Asthma (Chronic) Surgical History History of back surgery (Resolved) History of tubal ligation (Resolved) History of tonsillectomy (Resolved) History of D AND C (Resolved) History of right breast biopsy (Resolved) Family History Mother Anxiety Hypertension kidney/renal disease High cholesterol Brother Heart disease Cancer Bladder Cancer Father Heart disease Social History Smoking Status: Never smoker second hand exposure: No alcohol intake: never substance use type: does not use caffeine: No what type of physical activity do you participate in: none Review of Systems Const CONSTITUTIONAL: No anorexia, No body ache, No chills, No daytime sleepiness, No fever(s), No night sweats, No stops breathing during sleep, No weight loss, No weight gain, No sleeping in chair, No orthopnea, No fatigue, No headache(s), No frequent colds, No seasonal allergies, No other EETM Ear Nose Throat Mouth: No hoarseness, No Dry mouth in morning, No change in vision, No itchy eyes, No eye pain, No Swallowing Difficulty, Yes ear pain, No nose bleed, No headache(s), No mouth pain, Yes nasal congestion, Yes nasal discharge (dark yellow ), Yes sinus pain, Yes sinus pressure, No sore throat, No other Cardio Cadriovascular: No chest pain, No chest pain at rest, No chest pain with activity, No irregular heart rhythm, No shortness of breath when lying down, No palpitations, No other Resp Respiratory: No as per HPI, No shortness of breath at rest, No pain with cough, Yes chest congestion, Yes cough, Yes chest tightness, No pain on inspiration, No Inhalers, No Increase use of Rescue Inhalers, No snoring, No apnea, No other Gastro Gastrointestional: Negative bloody stools, change in appetite, difficulty swallowing, reflux, hematemesis, melena stool, loose stool, constipation or other Genitourinary: Negative blood in urine, nocturia, pain with urination or other Musc Musculoskeletal: Negative body pain, back pain, neck pain or other Skin/Breast Skin/Breast: No dry skin, No itching, No unusual bruising, No breast lump, No other Neuro Neurological: Negative restless legs, confusion, weakness or other Psych Psychocological: Negative abnormal sleep pattern, anxiety, thoughts of hurting self/others, hopelessness or other Lymph Lymphatic: No easy bleeding, No easy bruising, No other Exam Const Constitutional: Positive conversant, cooperative, in no acute respiratory distress, healthy appearing, well developed, well nourished and good hygiene Head Head: Yes normocephalic, Yes atraumatic Eyes Eye: Positive clear conjunctiva; negative nystagmus or scleral abnormality Ears Ear: Positive hearing normal and external ears normal; negative hard of hearing Nose Nose: Yes external nose normal Mouth Mouth: Positive no lesions and crowded posterior oropharynx; negative oral mucosae normal (Swelling to the left side of the internal mucosa not red), malodorous breath, oral thrush present or post nasal drip Mallampati Score: II: Mallampati Score Neck Neck: Positive normal visual inspection, full ROM and trachea midline; negative lymphadenopathy, JVD or tender Chest Wall Chest: Positive normal inspection of the chest and symmetric chest movement; negative increased A/P diameter Resp lung sounds: Positive clear to auscultation, good air exchange, normal expiratory time and normal respiratory effort; negative diminished, wheezes, wheeze present on forced exhalation, rhonchi, rales or dullness to percussion Cardio Cardiac: Positive regular rate, regular rhythm, S1 normal and S2 normal; negative murmur GI GI: Positive normal to inspection; negative distended Genitourinary: Positive deferred Musc Musculoskeletal: Positive steady gait and ROM normal; negative kyphosis or scoliosis Skin Pulmonary Skin Exam: Positive intact; negative rash Pulses Pulse: Yes pulses normal x4 extremities Extremities Extremities: Yes capillary refill normal, No clubbing, No cyanosis, No edema Neuro Neurologic: Yes no focal neuro deficits, Yes conversant, Yes cooperative, Yes normal cognition, Yes normal coordination, Yes normal concentration, Yes understands questions Lymph Lymphatic: No lymphadenopathy, No tenderness, No cervical adenopathy Psych Appearance: Positive grossly normal, eye contact and well kempt Mental Status: Positive mental status grossly normal Mood: Positive congruent mood Affect: Positive normal affect Coding Level of Care Code Off vis,est,level 3 Diagnoses Parotid swelling R60.9 Acute nasopharyngitis J00 URI type: acute nasopharyngitis (common cold) 04/19/18 1342 <Electronically signed by Roya BARNES> Date Roya BARNES Cosigner Signature: Date (if applicable) CC: Elin Alonso Start: 02-08-2018 End: 02-08-2018 Pulmonary Visit Report Comments: See Note; NOTES: [facility] Pulmonary Medicine of [address] [place] [address] OFFICE VISIT Date of Service: 02/08/18 MR#: [id number] Acct: [id number] Name: LETY SPENCER Rep #: [id number] : 1955 Provider: Roya Oliveira Age/Sex: 62/F Location: [facility] [place], [place].PMW Status: Signed Assessment AND Plan 1. Candidiasis of mouth B37.0 Plan New. Patient's sensation of throat congestion or drainage in her throat may be related to a layer of thrush identified on her tongue posteriorly. Will treat with nystatin 3-4 times daily. She has been encouraged to contact the office if does not respond. No additional testing at this time. 2. Moderate persistent asthma with acute exacerbation J45.41 Plan She does not appear to be in a continued exacerbation of her asthma. Continue all maintenance medications. No additional testing at this time. Contact the office with any new or worsening symptoms in the meantime. Keep previously scheduled routine follow-up. Plan Detail Other Medications New: nystatin swish and swallow 5 cc three times per da5 mL Mucous Membrane TID 250 mL 1RF y for 10 days HPI 2 W FU: Chief Complaint: Throat congestion HPI Comments Details: This patient presents the office today to follow-up after recently being treated for exacerbation of her asthma. She is ambulatory and currently in room air. She has completed the prednisone as previously ordered. She continues all her maintenance medications which consist of: Brio, and Flonase. She also continues to use the Mucinex as needed. She has not needed to utilize her rescue inhaler very much. She continues to experience chest tightness in the morning, she reports this is her baseline. Her cough has resolved, she denies any sputum production or hemoptysis. She does continue to experience some throat congestion and sensation of sputum being caught in the back of her throat. She denies any chest pain or palpitations. She is not experience any fever, chills or body aches. See complete review of systems. Intake Vital Signs02/08/18 Body Mass Index (BMI) 35.0 02/08/18 Height 5 ft 4 in 02/08/18 Weight: 208 lb Intake Visit Reasons: 2 W FU Chief Complaint: chest tightness Accompanied by: Self Allergies buprenorphine [From Butrans] Allergy (Mild, Verified 02/08/18 10:16) Hives terbinafine Allergy (Mild, Verified 02/08/18 10:16) Rash codeine Allergy (Verified 02/08/18 10:16) Unknown nortriptyline Adverse Reaction (Mild, Verified 02/08/18 10:16) Upset Stomach omeprazole Adverse Reaction (Mild, Verified 02/08/18 10:16) Diarrhea Penicillins Adverse Reaction (Mild, Verified 02/08/18 10:16) yeast infection naproxen [From Naprosyn] Adverse Reaction (Verified 02/08/18 10:16) gi upset nortriptyline HCl [From Pamelor] Adverse Reaction (Verified 02/08/18 10:16) Upset Stomach Medications Hydrochlorothiazide [Hctz] 12.5 mg PO DAILY 11/05/15 [History Confirmed 02/08/18] Pantoprazole Sodium [Protonix] 40 mg PO DAILY 11/05/15 [History Confirmed 02/08/18] Simvastatin [Zocor] 40 mg PO QHS 11/05/15 [History Confirmed 02/08/18] albuterol sulfate HFA 90 mcg/actuation aerosol inhaler 2 puff INHALATION Q6H PRN PRN #3 device 02/26/17 [Rx Confirmed 02/08/18] Lisinopril [Zestril] 10 mg PO QHS 07/09/17 [History Confirmed 02/08/18] Zolpidem Tartrate [Ambien] 10 mg PO QHS PRN 07/09/17 [History Confirmed 02/08/18] albuterol sulfate 2.5 mg/3 mL (0.083 %) solution for nebulization 2.5 mg INHALATION Q4HWA.RT PRN #180 vial 12/03/17 [Rx Confirmed 02/08/18] fluticasone 200 mcg-vilanterol 25 mcg/dose powder for inhalation 1 ea INHALATION DAILY #60 ea 12/03/17 [Rx Confirmed 02/08/18] fluticasone 50 mcg/actuation nasal spray,suspension 2 spray INTRANASAL DAILY #18.2 g 01/14/18 [Rx Confirmed 02/08/18] guaifenesin ER 1,200 mg tablet, extended release 12 hr 1,200 mg PO Q12H #30 tab 01/26/18 [Rx Confirmed 02/08/18] nystatin 100,000 unit/mL oral suspension 5 ml MUCOUS MEMBRANE TID #250 ml 02/08/18 [Rx Confirmed 02/08/18] PFSH Medical History Exercise-induced bronchospasm (Chronic) History of hysterectomy (Resolved) Hypertension (Chronic) Hyperlipidemia (Chronic) GERD (gastroesophageal reflux disease) (Chronic) 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) Back pain, sacroiliac (Chronic) 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) Asthma (Chronic) Surgical History History of back surgery (Resolved) History of tubal ligation (Resolved) History of tonsillectomy (Resolved) History of D AND C (Resolved) History of right breast biopsy (Resolved) Family History Mother Anxiety Hypertension kidney/renal disease High cholesterol Brother Heart disease Cancer Bladder Cancer Father Heart disease Social History Smoking Status: Never smoker second hand exposure: No alcohol intake: never substance use type: does not use caffeine: No what type of physical activity do you participate in: none Review of Systems Const CONSTITUTIONAL: Negative anorexia, body ache, chills, daytime sleepiness, fever(s), night sweats, oral thrush, stops breathing during sleep, weight loss, sleeping in chair, fatigue, weight loss, weight gain, frequent colds, seasonal allergies, other, headache(s) or orthopnea EETM Ear Nose Throat Mouth: Positive hearing normal; negative hard of hearing, hoarseness, dry mouth in morning, change in vision, itchy eyes, eye pain, swallowing Difficulty, ear pain, nose bleed, headache(s), mouth pain, nasal congestion, nasal discharge, post nasal drip, sinus pain, sinus pressure, sore throat or other Cardio Cardiovascular: Negative chest pain, chest pain at rest, chest pain with activity, irregular heart rhythm, edema, shortness of breath when lying down, palpitations, murmur or other Resp Respiratory: Positive as per HPI; negative shortness of breath, pain with cough, wheezing, chest congestion, cough, chest tightness, pain on inspiration, inhalers, increase use of rescue inhalers, snoring, apnea or other Gastro Gastrointestional: Negative bloody stools, change in appetite, difficulty swallowing, reflux, hematemesis, melena stool, loose stool, constipation or other Genitourinary: Negative blood in urine, nocturia, pain with urination or other Musc Musculoskeletal: Negative body pain, back pain, neck pain or other Skin/Breast Skin/Breast: Negative dry skin, itching, rash, unusual bruising, breast lump or other Neuro Neurological: Negative restless legs, confusion, weakness or other Psych Psychocological: Negative abnormal sleep pattern, anxiety, thoughts of hurting self/others, hopelessness or other Lymph Lymphatic: Negative easy bleeding, easy bruising, swollen lymph nodes or other Exam Const Constitutional: Positive conversant, cooperative, in no acute respiratory distress, healthy appearing, well developed, well nourished and good hygiene Head Head: Positive normocephalic and atraumatic; negative cyanosis of lips/distal nose Eyes Eye: Positive clear conjunctiva; negative nystagmus or scleral abnormality Ears Ear: Positive hearing normal and external ears normal; negative hard of hearing Nose Nose: Positive external nose normal and no nasal discharge; negative epistaxis Mouth Mouth: Positive oral mucosae normal, no lesions, oral thrush present and crowded posterior oropharynx; negative post nasal drip or malodorous breath Mallampati Score: II: Mallampati Score Neck Neck: Positive normal visual inspection, full ROM and trachea midline; negative lymphadenopathy, JVD or tender Chest Wall Chest: Positive normal inspection of the chest and symmetric chest movement; negative increased A/P diameter Resp lung sounds: Positive clear to auscultation, good air exchange, normal expiratory time and normal respiratory effort; negative diminished, wheezes, rhonchi, rales, dullness to percussion or wheeze present on forced exhalation Cardio Cardiac: Positive regular rate, regular rhythm, S1 normal and S2 normal; negative murmur GI GI: Positive normal to inspection; negative distended Genitourinary: Positive deferred Musc Musculoskeletal: Positive steady gait and ROM normal; negative kyphosis or scoliosis Skin Pulmonary Skin Exam: Positive intact; negative rash Pulses Pulse: Yes pulses normal x4 extremities Extremities Extremities: Yes capillary refill normal, No clubbing, No cyanosis, No edema Neuro Neurologic: Yes conversant, Yes no focal neuro deficits, Yes normal concentration, Yes understands questions, Yes cooperative, Yes normal coordination, Yes normal cognition, No tremor Lymph Lymphatic: No lymphadenopathy, No tenderness, No cervical adenopathy Psych Appearance: Positive grossly normal, eye contact and well kempt Mental Status: Positive mental status grossly normal Mood: Positive congruent mood Affect: Positive normal affect Coding Level of Care Code Off vis,est,level 4 Diagnoses Candidiasis of mouth B37.0 Moderate persistent asthma with acute exacerbation J45.41 Asthma severity: moderate Asthma persistence: persistent Asthma complication type: with acute exacerbation 02/08/18 1053 <Electronically signed by Roya BARNES> Date Roya BARNES Cosigner Signature: Date (if applicable) CC: Elin Alonso Start: 01-26-2018 End: 01-26-2018 Pulmonary Visit Report Comments: See Note; NOTES: [facility] Medicine of [place] [address] [place] [address] OFFICE VISIT Date of Service: 01/26/18 MR#: [id number] Acct: [id number] Name: LETY SPENCER Rep #: [id number] : 1955 Provider: Roya Oliveira Age/Sex: 62/F Location: [facility] [place], [place].PMW Status: Signed Assessment AND Plan 1. Moderate persistent asthma with acute exacerbation J45.41 Plan Deteriorated. Treating with guaifenesin and prednisone taper. Follow-up in 2 weeks. Continue current maintenance medications. No additional testing at this time. Plan Detail Other Medications New: Follow Up 2 Weeks (CSM) HPI Cough: Chief Complaint: Chest congestion HPI Comments Details: Patient presents the office today for an acute visit. She is amatory currently on room air. She was recently treated for exacerbation of her asthma with antibiotics and a prednisone burst. She states that she felt slightly improved after completing the burst but shortly after symptoms began returning and new symptoms presented. Previously, she felt that most of her symptoms were in her head. Now she states that they have moved into her chest. She is complaining of chest congestion, chest tightness and a nonproductive cough. She is also hoarse. She is reporting worsening shortness of breath, as well as wheezing. She is now using her albuterol nebulizer every 4 hours, which provides her with some temporary relief. She denies any fever, chills or body aches. She denies any sputum production or hemoptysis. She has not added any [id number] medications. She has maintained compliance with Brio once daily. She does report rinsing her mouth out after the Brio denies any medication side effects such as sore throat or thrush. See complete review of systems. Intake Vital Signs01/26/18 Body Mass Index (BMI) 35.0 01/26/18 Height 5 ft 4 in Intake Visit Reasons: Cough Chief Complaint: chest tightness Is patient in pain?: No Allergies buprenorphine [From Butrans] Allergy (Mild, Verified 01/26/18 10:57) Hives terbinafine Allergy (Mild, Verified 01/26/18 10:57) Rash codeine Allergy (Verified 01/26/18 10:57) Unknown nortriptyline Adverse Reaction (Mild, Verified 01/26/18 10:57) Upset Stomach omeprazole Adverse Reaction (Mild, Verified 01/26/18 10:57) Diarrhea Penicillins Adverse Reaction (Mild, Verified 01/26/18 10:57) yeast infection naproxen [From Naprosyn] Adverse Reaction (Verified 01/26/18 10:57) gi upset nortriptyline HCl [From Pamelor] Adverse Reaction (Verified 01/26/18 10:57) Upset Stomach Medications Hydrochlorothiazide [Hctz] 12.5 mg PO DAILY 11/05/15 [History Confirmed 01/26/18] Pantoprazole Sodium [Protonix] 40 mg PO DAILY 11/05/15 [History Confirmed 01/26/18] Simvastatin [Zocor] 40 mg PO QHS 11/05/15 [History Confirmed 01/26/18] albuterol sulfate HFA 90 mcg/actuation aerosol inhaler 2 puff INHALATION Q6H PRN PRN #3 device 02/26/17 [Rx Confirmed 01/26/18] Lisinopril [Zestril] 10 mg PO QHS 07/09/17 [History Confirmed 01/26/18] Zolpidem Tartrate [Ambien] 10 mg PO QHS PRN 07/09/17 [History Confirmed 01/26/18] albuterol sulfate 2.5 mg/3 mL (0.083 %) solution for nebulization 2.5 mg INHALATION Q4HWA.RT PRN #180 vial 12/03/17 [Rx Confirmed 01/26/18] fluticasone 200 mcg-vilanterol 25 mcg/dose powder for inhalation 1 ea INHALATION DAILY #60 ea 12/03/17 [Rx Confirmed 01/26/18] azithromycin 250 mg tablet 250 mg PO QDAY #6 tab 01/14/18 [Rx Confirmed 01/26/18] fluticasone 50 mcg/actuation nasal spray,suspension 2 spray INTRANASAL DAILY #18.2 g 01/14/18 [Rx Confirmed 01/26/18] prednisone 20 mg tablet 60 mg PO QDAY #15 tab 01/18/18 [Rx Confirmed 01/26/18] guaifenesin ER 1,200 mg tablet, extended release 12 hr 1,200 mg PO Q12H #30 tab 01/26/18 [Rx Confirmed 01/26/18] prednisone 10 mg tablet 10 mg PO QDAY #30 tab 01/26/18 [Rx Confirmed 01/26/18] PFSH Medical History Exercise-induced bronchospasm (Chronic) History of hysterectomy (Resolved) Hypertension (Chronic) Hyperlipidemia (Chronic) GERD (gastroesophageal reflux disease) (Chronic) 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) Back pain, sacroiliac (Chronic) 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) Asthma (Chronic) Surgical History History of back surgery (Resolved) History of tubal ligation (Resolved) History of tonsillectomy (Resolved) History of D AND C (Resolved) History of right breast biopsy (Resolved) Family History Mother Anxiety Hypertension kidney/renal disease High cholesterol Brother Heart disease Cancer Bladder Cancer Father Heart disease Social History Smoking Status: Never smoker second hand exposure: No alcohol intake: never substance use type: does not use caffeine: No what type of physical activity do you participate in: none Review of Systems Const CONSTITUTIONAL: Positive body ache, fatigue and headache(s); negative anorexia, chills, daytime sleepiness, fever(s), night sweats, oral thrush, stops breathing during sleep, weight loss, sleeping in chair, weight loss, weight gain, frequent colds, seasonal allergies, other or orthopnea EETM Ear Nose Throat Mouth: Positive hoarseness, headache(s) and post nasal drip; negative hard of hearing, hearing normal, dry mouth in morning, change in vision, itchy eyes, eye pain, swallowing Difficulty, ear pain, nose bleed, mouth pain, nasal congestion, nasal discharge, sinus pain, sinus pressure, sore throat or other Cardio Cardiovascular: Negative chest pain, chest pain at rest, chest pain with activity, irregular heart rhythm, edema, shortness of breath when lying down, palpitations, murmur or other Resp Respiratory: Positive pain with cough, chest congestion, chest tightness and cough cough: Positive productive color: Positive yellow and clear; negative as per HPI, shortness of breath, wheezing, pain on inspiration, inhalers, increase use of rescue inhalers, snoring, apnea or other Gastro Gastrointestional: Negative bloody stools, change in appetite, difficulty swallowing, reflux, hematemesis, melena stool, loose stool, constipation or other Genitourinary: Negative blood in urine, nocturia, pain with urination or other Musc Musculoskeletal: Negative body pain, back pain, neck pain or other Skin/Breast Skin/Breast: Negative dry skin, itching, rash, unusual bruising, breast lump or other Neuro Neurological: Negative restless legs, confusion, weakness or other Psych Psychocological: Negative abnormal sleep pattern, anxiety, thoughts of hurting self/others, hopelessness or other Lymph Lymphatic: Negative easy bleeding, easy bruising, swollen lymph nodes or other Exam Const Constitutional: Positive conversant, cooperative, in no acute respiratory distress, healthy appearing, well developed, well nourished, good hygiene and obese Head Head: Positive normocephalic and atraumatic; negative cyanosis of lips/distal nose Eyes Eye: Positive clear conjunctiva; negative nystagmus or scleral abnormality Ears Ear: Positive external ears normal; negative hard of hearing or hearing normal Nose Nose: Positive external nose normal and no nasal discharge; negative epistaxis Mouth Mouth: Positive post nasal drip, oral mucosae normal, no lesions, good dentition and posterior oropharynx is adequate; negative malodorous breath or oral thrush present Mallampati Score: II: Mallampati Score Neck Neck: Positive normal visual inspection, full ROM and trachea midline; negative lymphadenopathy, JVD or tender Chest Wall Chest: Positive normal inspection of the chest and symmetric chest movement; negative increased A/P diameter Resp lung sounds: Positive clear to auscultation, good air exchange, normal expiratory time and normal respiratory effort; negative diminished, wheezes, rhonchi, rales, dullness to percussion or wheeze present on forced exhalation Cardio Cardiac: Positive regular rate, regular rhythm, S1 normal and S2 normal; negative murmur GI GI: Positive normal to inspection and obese; negative distended Genitourinary: Positive deferred Musc Musculoskeletal: Positive steady gait and ROM normal; negative kyphosis or scoliosis Skin Pulmonary Skin Exam: Positive intact; negative rash Pulses Pulse: Yes pulses normal x4 extremities Extremities Extremities: Yes capillary refill normal, No clubbing, No cyanosis, No edema Neuro Neurologic: Yes conversant, Yes no focal neuro deficits, Yes normal concentration, Yes understands questions, Yes cooperative, Yes normal cognition, Yes normal coordination Lymph Lymphatic: No lymphadenopathy, No tenderness, No cervical adenopathy Psych Appearance: Positive grossly normal, eye contact and well kempt Mental Status: Positive mental status grossly normal Mood: Positive congruent mood Affect: Positive normal affect Coding Level of Care Code Off vis,est,level 3 Diagnoses Moderate persistent asthma with acute exacerbation J45.41 Asthma complication type: with acute exacerbation Asthma persistence: persistent Asthma severity: moderate 01/26/18 1558 <Electronically signed by Roya BARNES> Date Roya BARNES Cosigner Signature: Date (if applicable) CC: Elin Alonso Start: 01-14-2018 End: 01-14-2018 Pulmonary Visit Report Comments: See Note; NOTES: Pulmonary Medicine [place] [address] [place] [address] OFFICE VISIT Date of Service: 01/14/18 MR#: [id number] Acct: [id number] Name: LETY SPENCER Yuly Rep #: [id number] : 1955 Provider: Roya Oliveira Age/Sex: 62/F Location: [facility] [place], [place].PMW Status: Signed Assessment AND Plan 1. Moderate persistent asthma with acute exacerbation J45.41 Plan Deteriorated. Treated with a Z-Peter and a Kenalog injection. Continue maintenance medications. No additional testing at this time. Follow-up with Dr. Leblanc in 6 months. Contact office with any new or worsening symptoms in the meantime. Encouraged to the office a call with an update on how she is feeling in 5 days. 2. Seasonal allergic rhinitis due to pollen J30.1 Plan Stable. Continue Flonase. Provided. Follow-up with Dr. Leblanc in 6 months. Contact office with any new or worsening symptoms in the meantime. 3. Obesity (BMI 30-39.9) E66.9 Plan Continue to encourage weight loss. Plan Detail Other Orders Orders: Other Medications New: fluticasone 50 mcg/actuation (Flonase Allergy Re2 sprays Intranasal DAILY 18.2 grams 8RF lief) Discontinued: Kenalog (triamcinolone acetonide) [id number] mg (1.5 mL) IM ONCE 1.5 mL 0RF NS J45.909 ued Reason: Office Medication has been Docume nted as given Follow Up 6 Months (DMB) HPI 6 M FU: Chief Complaint: chest tightness HPI Comments Details: This patient presents the office today for routine follow-up on her asthma. She is ambulatory and currently on room air. She has not been seen in the ED or urgent care for any respiratory illnesses since her last office visit. She has not required any antibiotics or prednisone for any breathing problems. She states that until 4 days ago she was very stable with regard to her asthma. Proximally 4 days ago she noticed cold-like symptoms began. She is reporting a runny nose, sneezing, chest tightness and a nonproductive but moist sounding cough. She has noticed an increase in shortness of breath and some wheezing. She notes a fever, today noted to be 99.9. She has not tried any [id number] medications for her symptoms. She has been compliant with Brio daily. She does group brush her teeth and rinse her mouth out after each use. She denies any medication side effects such as sore throat or thrush. She is also compliant with Flonase daily. Denies any medication side effects such as epistaxis. Since her cold symptoms began she has been using her albuterol nebulizer approximately every 4-6 hours, and has found that it has given her some temporary resolution of her chest tightness. Denies any hemoptysis. She denies any chest pain or palpitations. She denies any chills or body aches. See complete review of systems. She does report that she received her annual flu vaccination already this year. Intake Vital Signs01/14/18 Height 5 ft 4 in 01/14/18 Weight: 204 lb Intake Visit Reasons: 6 M FU Accompanied by: Family / Other Allergies buprenorphine [From Butrans] Allergy (Mild, Verified 01/14/18 09:43) Hives terbinafine Allergy (Mild, Verified 01/14/18 09:43) Rash codeine Allergy (Verified 01/14/18 09:43) Unknown nortriptyline Adverse Reaction (Mild, Verified 01/14/18 09:43) Upset Stomach omeprazole Adverse Reaction (Mild, Verified 01/14/18 09:43) Diarrhea Penicillins Adverse Reaction (Mild, Verified 01/14/18 09:43) yeast infection naproxen [From Naprosyn] Adverse Reaction (Verified 01/14/18 09:43) gi upset nortriptyline HCl [From Pamelor] Adverse Reaction (Verified 01/14/18 09:43) Upset Stomach Medications Hydrochlorothiazide [Hctz] 12.5 mg PO DAILY 11/05/15 [History Confirmed 01/14/18] Pantoprazole Sodium [Protonix] 40 mg PO DAILY 11/05/15 [History Confirmed 01/14/18] Simvastatin [Zocor] 40 mg PO QHS 11/05/15 [History Confirmed 01/14/18] albuterol sulfate HFA 90 mcg/actuation aerosol inhaler 2 puff INHALATION Q6H PRN PRN #3 device 02/26/17 [Rx Confirmed 01/14/18] Lisinopril [Zestril] 10 mg PO QHS 07/09/17 [History Confirmed 01/14/18] Zolpidem Tartrate [Ambien] 10 mg PO QHS PRN 07/09/17 [History Confirmed 01/14/18] albuterol sulfate 2.5 mg/3 mL (0.083 %) solution for nebulization 2.5 mg INHALATION Q4HWA.RT PRN #180 vial 12/03/17 [Rx Confirmed 01/14/18] fluticasone 200 mcg-vilanterol 25 mcg/dose powder for inhalation 1 ea INHALATION DAILY #60 ea 12/03/17 [Rx Confirmed 01/14/18] azithromycin 250 mg tablet 250 mg PO QDAY #6 tab 01/14/18 [Rx Confirmed 01/14/18] fluticasone 50 mcg/actuation nasal spray,suspension 2 spray INTRANASAL DAILY #18.2 g 01/14/18 [Rx Confirmed 01/14/18] PFSH Medical History Exercise-induced bronchospasm (Chronic) History of hysterectomy (Resolved) Hypertension (Chronic) Hyperlipidemia (Chronic) GERD (gastroesophageal reflux disease) (Chronic) 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) Back pain, sacroiliac (Chronic) 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) Asthma (Chronic) Surgical History History of back surgery (Resolved) History of tubal ligation (Resolved) History of tonsillectomy (Resolved) History of D AND C (Resolved) History of right breast biopsy (Resolved) Family History Mother Anxiety Hypertension kidney/renal disease High cholesterol Brother Heart disease Cancer Bladder Cancer Father Heart disease Social History Smoking Status: Never smoker second hand exposure: No alcohol intake: never substance use type: does not use caffeine: No what type of physical activity do you participate in: none Review of Systems Const CONSTITUTIONAL: Negative anorexia, body ache, chills, daytime sleepiness, fever(s), night sweats, oral thrush, stops breathing during sleep, weight loss, sleeping in chair, fatigue, weight loss, weight gain, frequent colds, seasonal allergies, other, headache(s) or orthopnea EETM Ear Nose Throat Mouth: Positive hearing normal and post nasal drip; negative hard of hearing, hoarseness, dry mouth in morning, change in vision, itchy eyes, eye pain, swallowing Difficulty, ear pain, nose bleed, headache(s), mouth pain, nasal congestion, nasal discharge, sinus pain, sinus pressure, sore throat or other Cardio Cardiovascular: Negative chest pain, chest pain at rest, chest pain with activity, irregular heart rhythm, edema, shortness of breath when lying down, palpitations, murmur or other Resp Respiratory: Positive as per HPI; negative shortness of breath, pain with cough, wheezing, chest congestion, cough, chest tightness, pain on inspiration, inhalers, increase use of rescue inhalers, snoring, apnea or other Gastro Gastrointestional: Negative bloody stools, change in appetite, difficulty swallowing, reflux, hematemesis, melena stool, loose stool, constipation or other Genitourinary: Negative blood in urine, nocturia, pain with urination or other Musc Musculoskeletal: Negative body pain, back pain, neck pain or other Skin/Breast Skin/Breast: Negative dry skin, itching, rash, unusual bruising, breast lump or other Neuro Neurological: Negative restless legs, confusion, weakness or other Psych Psychocological: Negative abnormal sleep pattern, anxiety, thoughts of hurting self/others, hopelessness or other Lymph Lymphatic: Negative easy bleeding, easy bruising, swollen lymph nodes or other Exam Const Constitutional: Positive conversant, cooperative, in no acute respiratory distress, healthy appearing, well developed, well nourished, good hygiene and obese Head Head: Positive normocephalic and atraumatic; negative cyanosis of lips/distal nose Eyes Eye: Positive clear conjunctiva; negative nystagmus or scleral abnormality Ears Ear: Positive hearing normal and external ears normal; negative hard of hearing Nose Nose: Positive external nose normal and no nasal discharge; negative epistaxis Mouth Mouth: Positive post nasal drip, oral mucosae normal, no lesions, good dentition and posterior oropharynx is adequate; negative malodorous breath or oral thrush present Mallampati Score: II: Mallampati Score Neck Neck: Positive normal visual inspection, full ROM and trachea midline; negative lymphadenopathy, JVD or tender Chest Wall Chest: Positive normal inspection of the chest and symmetric chest movement; negative increased A/P diameter Resp lung sounds: Positive diminished, normal expiratory time and normal respiratory effort; negative wheezes, rhonchi, rales, dullness to percussion or wheeze present on forced exhalation Cardio Cardiac: Positive regular rate, regular rhythm, S1 normal and S2 normal; negative murmur GI GI: Positive normal to inspection and obese; negative distended Genitourinary: Positive deferred Musc Musculoskeletal: Positive steady gait and ROM normal; negative kyphosis or scoliosis Skin Pulmonary Skin Exam: Positive intact; negative rash Pulses Pulse: Yes pulses normal x4 extremities Extremities Extremities: Yes capillary refill normal, No clubbing, No cyanosis, No edema Neuro Neurologic: Yes conversant, Yes no focal neuro deficits, Yes understands questions, Yes normal concentration, Yes cooperative, Yes normal cognition, Yes normal coordination, No tremor Lymph Lymphatic: No lymphadenopathy, No tenderness, No cervical adenopathy Psych Appearance: Positive grossly normal, eye contact and well kempt Mental Status: Positive mental status grossly normal Mood: Positive congruent mood Affect: Positive normal affect Office Meds Vincentalog Performing Provider: MOLLY Banda Administered by: Arianna Morris on 01/14/18 10:29 Dose Route Admin Location Lot Number Expiration Date NDC Seed Potato Cutter 60 mg IM Lt gluteal [id number] 04/17/19 5047-0136-08 [employer] Coding Level of Care Code Off vis,est,level 4 Diagnoses Moderate persistent asthma with acute exacerbation J45.41 Asthma severity: moderate Asthma persistence: persistent Asthma complication type: with acute exacerbation Seasonal allergic rhinitis due to pollen J30.1 Allergic rhinitis trigger: pollen Obesity (BMI 30-39.9) E66.9 01/14/18 1053 <Electronically signed by Roya BARNES> Date Roya BARNES Cosigner Signature: Date (if applicable) CC: Elin Alonso Start: 08-07-2017 End: 08-07-2017 PT D/C Summary (1) Comments: See Note; NOTES: [facility] [address] [place], [place] [id number] Fax REHABILITATION SERVICES DISCHARGE SUMMARY MR#: [id number] Acct: [id number] Name: LETY SPENCER Rep #: [id number] : 1955 62 From: Marielle Lopez PT, Cert. MDT Referring : Status: REG RCR Insurance: [employer] SELF PAY INSURANCE HP - PT D/C Summary It has been my pleasure to treat LETY SPENCER under orders from CHON VAZQUEZ, for the diagnosis of LLE PAIN for a total of 7 visit(s). Discharge Date: Please see the following information for a summary of their discharge status. - Subjective Subjective: PATIENT REPORTS HER LLE SX'S ARE NO BETTER AND NO WORSE SINCE STARTING AQUATIC THERAPY. SHE STATES SHE THINKS SHE IS GOING TO END UP IN PAIN MGMT. PATIENT REPORTS INCREASED PAIN AFTER BUT NOT DURING 6LB BALL EX IN THE WATER LAST VISIT. STATES MASSAGE THERAPY HAS PRETTY MUCH WORKED THAT OUT NOW. - Pain Lumbar Spine Pain Intensity (Out of 10): 7 RLE Pain Intensity (Out of 10): 0 LLE Pain Intensity (Out of 10): 8 - Overall Improvement % Improvement: 0 - Objective Objective/Function: UPON EXAM TODAY, THERE ARE NO SIGNIFICANT CHANGES SINCE INITIAL EVALUATION. PATIENT AND THIS THERAPIST ARE IN AGREEMENT FOR DISCHARGE. - Goals Goal 1:: DECREASE C/O LLE PAIN Goal 2:: IMPROVE STANDING AND WALKING FUNCTION Goal 3:: INSTRUCT IN PROPHYLAXIS - Plan Plan: D/C DUE TO LACK OF PROGRESS AND CONTINUED SIGNIFICANT LLE PAIN. - D/C Information If there are questions or concerns regarding this patient's physical therapy, please feel free to call me at [phone]. Thank you for the referral of this patient. Sincerely, Marielle Lopez <Electronically signed by Cert. MAX Andre PTT> 08/07/17 0190 CC: Elin Reynolds DO; OUT OF TOWN DOCTOR HUSAM Signed Elin Reynolds Start: 08-07-2017 End: 08-07-2017 Inital Evaluation (1) - PT Comments: See Note; NOTES: [facility] [address] [place] [address]. [address] [place] [address] Fax REHABILITATION SERVICES INITIAL EVALUATION MR#: [id number] Acct: [id number] Name: LETY SPENCER Rep #: [id number] : 1955 62 From: Marielle Lopez PT, Cert. MDT Referring : Status: REG RCR Insurance: [employer] SELF PAY INSURANCE Patient's Visit Information LETY SPENCER is a 62 year old F referred to Physical Therapy by CHON VAZQUEZ with a diagnosis of LLE PAIN. Date of Evaluation: 08/07/17 Physical Therapist: Marielle A Cross - Visit Plan Frequency: 2-3x /Week Duration: 4-6 Weeks Plan: AQUATIC THERAPY FOR PAIN RELEIF, POSTURE CORRECTION/STRENGTHENING, INSTRUCTION IN APPROPRIATE BODY MECHANICS AND ACTIVITY MODIFICATIONS. DLS STARTING WITH A NEUTRAL SPINE PROGRESSING ROM TOLERATED. LAI LE ROM, STRETCHING AND STRENGTHENING. HEP INSTRUCTION. - Subjective Subjective: THIS PATIENT PRESENTS TO PT WITH C/O PAIN IN THE BACK OF HER LEFT LEG. LOW BACK PAIN TOO. S/P 2 LOW BACK SURGERIES: NOV 2016 AND OCT 2012 MAKING PATIENT ABOUT 8 MONTHS POST OP FROM HER SECOND BACK SURGERY. SHE REPORTS THAT UP UNTIL 2 MONTHS AGO SHE WAS PAINFREE. SHE REPORTS A LONG HISTORY OF LLE PAIN. SHE STATES A FLUID CYST IN L45 REGION WAS THE REASON FOR HER PATRICK BACK SURGERY. SHE HAS HAD FUSION - RODS AND SCREWS. PATIENT REPORTS L LEG PAIN CAME BACK ABOUT 2 MONTHS AGO FOR NO APPARENT REASON. SHE ISN'T SURE IF SHE OVER DID IT WITH EX, WALKING OR YARD WORK. STATES HER PA ISN'T SURE IF THE PAIN IS COMING FROM HER BACK OR IF SHE PULLED A HAMSTRING. SHE RATES HER POSTERIOR LEFT THIGH PAIN 5/10 TODAY AND STATES HER PAIN RANGES FROM 2-10/10. SHE REPORTS SHE HAD A LOW BACK X-RAY 07/14/17 AND WAS TOLD EVERYTHING LOOKS GOOD. REPORTS SHE WAS TOLD SHE MAY NEED A HAMSTRING MRI. SHE REPORTS INCREASED LLE PAIN WHEN SHE SITS IN A CHAIR THAT HITS THE BACK OF HER LEG AND WITH WALKING. DECREASED PAIN WITH MASSAGE, HEAT, AND GENTLE STRETCHING. PMH: ASTHMA, COPD, HTN, UNREPAIRED L ROTATOR CUFF TEAR, HIGH CHOL, GERD, AND 2 TIA'S 2007, 2008. - Pain Lumbar Spine Pain Intensity (Out of 10): 7 Pain Intensity Range: Unrated Comment: COMES AND GOES. NO WORSE OVER-ALL RLE Pain Intensity (Out of 10): 0 Pain Intensity Range: Unrated Comment: ant. thigh/quad LLE Pain Intensity (Out of 10): 8 Pain Intensity Range: 2, 10 Comment: Hamstring - Objective THIS PATIENT AMBULATES INDEP'LY INTO PT WITHOUT ANY AD'S AND NO OBVIOUS LIMP. C/O DIFFICULTY INITIATING GAIT FIRST FEW STEPS. C/O LIMP/NEED FOR CANE WITH EXCESSIVE WALKING. INDEP SIT TO STAND WITHOUT UE ASSIST. LUMBAR MVMT LOSS: FLEX - MIN, EXT - ELISA, LAI SG - ELISA. SENSATION: INTACT AND SYMMETRICAL LAI LE'S. ROM: TIGHT LAI HS'S - PAIN IN LEFT POST THIGH WITH TESTING. MMT: LAI LE'S 5/5 WITH MMT'ING EXCEPT LEFT HIP 4/5, KNEE FLEX 4/5 WITH TESTING PROVOKING PAIN. SHE HAS TENDERNESS WITH PALPATION OF THE LEFT HAMSTRING REGION. HER CORE STRENGTH IS POOR. POSTURAL STRENGTH: POOR. INDEP SLS LAI LE'S BUT TESTING OF THE LLE PROVOKES LEFT HIP AND POSTERIOR THIGH PAIN. - Goals Goal 1:: DECREASE C/O LLE PAIN Goal Time Frame: 4-6 Weeks Goal 2:: IMPROVE STANDING AND WALKING FUNCTION Goal Time Frame: 4-6 Weeks Goal 3:: INSTRUCT IN PROPHYLAXIS Goal Time Frame: 4-6 Weeks - Rehabilitation Potential Rehabilitation Potential: Good - Anticipated Interventions Patient/Client Instruction: Educate patient on: Condition, Plan of Care, Risk Factors, Benefits of Fitness Program For the Purpose of:: To improve self management Therapeutic Exercise to Include: Strength training, Body mechanics, Postural training, Flexibilty training, In an aquatic setting, Dynamic Lumbar Stabilization For the Purpose of:: To decrease pain, To increase ROM, To improve muscle performance and motor function, To improve ability of physical actions for home/community/work/leisure , To improve gait and locomotor functions Thank you for the opportunity to evaluate your patient. For Medicare and Medicare HMO plans, please review the plan of care and approve it. It will need to be FAXED BACK to us at [phone] for Medicare purposes. Please let me know if there are questions or concerns regarding this plan of care. Physician Signature: Date: <Electronically signed by Marielle Lopez PT, Cert. MDT> 08/07/17 7630 CC: Elin Reynolds DO; OUT OF TOWN DOCTOR HUSAM Signed For Medicare only, by signing this I certify the plan of care. _ Physicians Signature Date Elin Reynolds Start: 07-16-2017 End: 07-16-2017 Pulmonary Visit Report Comments: See Note; NOTES: [facility] [address] [place] [address] OFFICE VISIT Date of Service: 07/16/17 MR#: [id number] Acct: [id number] Name: LETY SPENCER Rep #: [id number] : 1955 Provider: Ayush Leblanc D.O. Age/Sex: 62/F Location: [facility] [place], [place].PMW Status: Signed Assessment AND Plan 1. Asthma J45.909 Plan The patient remained symptomatically well controlled with use of Breo and as needed albuterol. We will plan to continue the aforementioned inhaler regimen without change. The patients seasonal allergic rhinitis symptoms are currently well controlled with use of Flonase. Repeat pulmonary function testing completed in March revealed no significant interval changes. 2. Seasonal allergic rhinitis J30.2 Plan Symptomatically well controlled with use of Flonase. Plan Detail Follow Up 6 Months (CSM) HPI HPI Comments Details: The patient is a 62-year-old female who presents to the clinic today for a routine scheduled follow-up office visit due to underlying asthma. If you recall, I initially saw the patient in January 2016, after she presented to the clinic with an established asthma diagnosis. She was initially diagnosed sometime in her late 20s. She also reported issues with exercise-induced bronchospasm. She had been seen previously by a pulmonary provider at [facility] until 2008. She is a lifelong non-smoker. Current triggers for worsening of her breathing quality have included: Cold air and cigarette smoke exposure. She has a history of seasonal allergic rhinitis. Pulmonary function testing completed in January 2016 showed the presence of a mild large airways obstructive ventilatory defect with an associated significant response to aerosolized bronchodilators. The patient's prior RAST test was largely unremarkable. Serum IgE level was 38. Repeat pulmonary function testing completed in March 2017 was grossly normal with stigmata of small airways disease. Today, the patient reports overall stability in her breathing quality. She reports no significant shortness of breath, chest tightness, wheezing or cough. She has remained compliant with the use of Breo and as needed albuterol. Reports that on average she utilizes her rescue inhaler 1 time per week. Her seasonal allergy symptoms have been well controlled with the use of Flonase. She has only experienced a small amount of nasal congestion and drainage. She has not been evaluated in the emergency department or urgent care clinic for breathing related issues since her last office visit. She recently joined a gym and has become more physically active. She reports that her weight has been stable. She denies fevers, chills or night sweats. She denies chest pain, dizziness or lightheadedness. Intake Vital Signs07/16/17 Height 5 ft 4 in 07/16/17 Weight: 196 lb Intake Visit Reasons: 4 M FU Accompanied by: Self Allergies buprenorphine [From Butrans] Allergy (Mild, Verified 07/09/17 17:13) Hives terbinafine Allergy (Mild, Verified 07/09/17 17:13) Rash codeine Allergy (Verified 07/09/17 15:48) Unknown nortriptyline Adverse Reaction (Mild, Verified 07/09/17 17:13) Upset Stomach omeprazole Adverse Reaction (Mild, Verified 07/09/17 17:13) Diarrhea Penicillins Adverse Reaction (Mild, Verified 07/09/17 17:13) yeast infection naproxen [From Naprosyn] Adverse Reaction (Verified 07/09/17 17:13) gi upset nortriptyline HCl [From Pamelor] Adverse Reaction (Verified 07/09/17 17:13) Upset Stomach Medications Albuterol Aerosols [Ventolin Aerosols] 2.5 mg INHALATION Q4HWA.RT PRN 11/05/15 [History Confirmed 07/09/17] Hydrochlorothiazide [Hctz] 12.5 mg PO DAILY 11/05/15 [History Confirmed 07/09/17] Pantoprazole Sodium [Protonix] 40 mg PO DAILY 11/05/15 [History Confirmed 07/09/17] Simvastatin [Zocor] 40 mg PO QHS 11/05/15 [History Confirmed 07/09/17] albuterol sulfate HFA 90 mcg/actuation aerosol inhaler 2 puff INHALATION Q6H PRN PRN #3 device 02/26/17 [Rx Confirmed 07/09/17] Fluticasone/Vilanterol [Breo Ellipta 200-25 Mcg INH] 1 ea IH DAILY 07/09/17 [History Confirmed 07/09/17] Lisinopril [Zestril] 10 mg PO QHS 07/09/17 [History Confirmed 07/09/17] Zolpidem Tartrate [Ambien] 10 mg PO QHS PRN 07/09/17 [History Confirmed 07/09/17] PFSH Medical History Exercise-induced bronchospasm (Chronic) Hypertension (Chronic) Hyperlipidemia (Chronic) GERD (gastroesophageal reflux disease) (Chronic) 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) Back pain, sacroiliac (Chronic) 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) Asthma (Chronic) Surgical History History of back surgery (Resolved) History of tubal ligation (Resolved) History of tonsillectomy (Resolved) History of hysterectomy (Resolved) History of D AND C (Resolved) History of right breast biopsy (Resolved) Family History Mother Anxiety Hypertension kidney/renal disease High cholesterol Brother Heart disease Cancer Bladder Cancer Father Heart disease Social History Smoking Status: Never smoker second hand exposure: No alcohol intake: never substance use type: does not use caffeine: No what type of physical activity do you participate in: none Review of Systems Const CONSTITUTIONAL: Negative anorexia, body ache, chills, daytime sleepiness, fever(s), night sweats, oral thrush, stops breathing during sleep, weight loss, sleeping in chair, fatigue, weight loss, weight gain, frequent colds, seasonal allergies, other, headache(s) or orthopnea EETM Ear Nose Throat Mouth: Positive hearing normal and sinus pressure; negative hard of hearing, hoarseness, dry mouth in morning, change in vision, itchy eyes, eye pain, swallowing Difficulty, ear pain, nose bleed, headache(s), mouth pain, nasal congestion, nasal discharge, post nasal drip, sinus pain, sore throat or other Cardio Cardiovascular: Negative chest pain, chest pain at rest, chest pain with activity, irregular heart rhythm, edema, shortness of breath when lying down, palpitations, murmur or other Resp Respiratory: Positive as per HPI; negative shortness of breath, pain with cough, wheezing, chest congestion, cough, chest tightness, pain on inspiration, inhalers, increase use of rescue inhalers, snoring, apnea or other Gastro Gastrointestional: Negative bloody stools, change in appetite, difficulty swallowing, reflux, hematemesis, melena stool, loose stool, constipation or other Genitourinary: Negative blood in urine, nocturia, pain with urination or other Musc Musculoskeletal: Negative body pain, back pain, neck pain or other Skin/Breast Skin/Breast: Negative dry skin, itching, rash, unusual bruising, breast lump or other Neuro Neurological: Negative restless legs, confusion, weakness or other Psych Psychocological: Negative abnormal sleep pattern, anxiety, thoughts of hurting self/others, hopelessness or other Lymph Lymphatic: Negative easy bleeding, easy bruising, swollen lymph nodes or other Exam Const Constitutional: Positive conversant, cooperative, in no acute respiratory distress, well developed, well nourished and good hygiene Head Head: Positive normocephalic and atraumatic; negative cyanosis of lips/distal nose Eyes Eye: Positive clear conjunctiva; negative nystagmus or scleral abnormality Ears Ear: Positive hearing normal and external ears normal; negative hard of hearing Nose Nose: Positive external nose normal; negative epistaxis Mouth Mouth: Positive oral mucosae normal and posterior oropharynx is adequate; negative no lesions or post nasal drip Mallampati Score: II: Mallampati Score Neck Neck: Positive normal visual inspection and trachea midline; negative lymphadenopathy Chest Wall Chest: Positive symmetric chest movement Normal AP diameter. Resp lung sounds: Positive clear to auscultation, good air exchange and normal expiratory time; negative wheezes, rhonchi or rales Cardio Cardiac: Positive regular rate, regular rhythm, S1 normal and S2 normal; negative rub, gallop or murmur GI GI: Positive normal bowel sounds Soft without distention Genitourinary: Positive deferred Musc Musculoskeletal: Positive steady gait Skin Pulmonary Skin Exam: Positive intact; negative lesion, ulcers, dermal atrophy or rash Pulses Pulse: Yes Pedal pulses present: Extremities Extremities: No clubbing, No cyanosis, No edema Neuro Neurologic: Yes conversant, Yes no focal neuro deficits, Yes cooperative Lymph Lymphatic: No lymphadenopathy Psych Appearance: Positive grossly normal Mental Status: Positive mental status grossly normal Mood: Positive congruent mood Affect: Positive normal affect Coding Level of Care Code Off vis,est,level 3 Diagnoses Asthma J45.909 Seasonal allergic rhinitis J30.2 07/16/17 0708 <Electronically signed by Ayush Leblanc DO> Date Ayush Leblanc DO Cosigner Signature: Date (if applicable) CC: Elin Alonso Start: 07-09-2017 End: 07-09-2017 Emergency Department Summary Comments: See Note; NOTES : [facility] [place] Medical Records Department [address] [place] [address] Emergency Department Summary 07/09/17 1638 MR#: [id number] Acct: [id number] Name: LETY SPENCER Rep #: [id number] : 1955 62 From: Keegan Adler DO PCP: Elin Reynolds DO Status: REG ER - ER Visit Summary Date of Service: 07/09/17 Chief Complaint: Chest pain History of Present Illness: The patient is a 62 F who presents with chest pain that began last night. Patient states the pain began approximately 8 PM last night. Patient states the pain has been constant. Patient states the pain started as a tightness but has also felt like a burning and sharp at times. Patient states the pain is over the substernal area. Patient states the pain became worse with exertion. Patient states nothing seems to help with it. He does admit to some shortness of breath and a mild cough. Patient denies any nausea or vomiting. Patient denies any diaphoresis. Patient denies any lightheadedness or palpitations. Patient states she had a recent endoscopy and felt like she was having some reflux symptoms as well. Past medical history includes hypertension. Patient has a family history of coronary artery disease at an early age. Patient also has a history of previous coronary artery disease. Physical Examination: Vital signs are stable. Patient is afebrile. Patient is in no acute distress. Heart was regular rate and rhythm. Lungs are clear and equal bilaterally. There is good respiratory effort noted. Abdomen is soft and nontender. Cranial nerves II through XII are intact. There are no focal motor or sensory deficits noted. Oral mucosa is pink and moist. Neck is supple. Trachea is midline. No JVD or lymphadenopathy noted. The remaining physical exam is within normal limits. Test Results: EKG showed normal sinus rhythm with a rate of 85. There are no acute ST or T-wave changes. Portable chest x-ray was obtained. There is no acute cardiopulmonary process noted. CBC, basic metabolic profile, and troponin were obtained were all within normal limits. Emergency Department Course and Treatment: Patient was given aspirin and sublingual nitroglycerin here. Patient had improvement of her tightness in her chest after the sublingual nitroglycerin. Patient has a HEART score of 4. Case was discussed with Dr. De Jesus. Patient will be admitted for observation for further evaluation of her chest pain. Patient understood and was agreeable with the plan. All questions were answered. Disposition: Admit to hospital Impression: Chest pain This note was generated with m0um0u dictation software. It may contain incorrect words, spelling, and punctuation that were not noted in review of the chart prior to signing ED Disposition - Plan for ED Patient: Disposition: Acute Care Hospital [facility] Chief Complaint: Chest Pain Diagnosis: Chest pain Referrals: Elin Reynolds DO [Primary Care Provider] - What to do if you have Problems For any increased pain, shortness of breath, bleeding, nausea or vomiting, chest pain, or any unexpected problems, contact your Primary Care Provider. Call [facility] ([phone]) or report to the closest Emergency Room. Call 911 if necessary. 07/09/17 8264 <Electronically signed by Keegan Adler DO> Date Keegan Adler DO Cosigner Signature (If Indicated): Date CC: Elin Alonso Start: 07-09-2017 End: 07-09-2017 Chest 1 View (Portable) Comments: See Note; NOTES: [facility] [place] Imaging Services [address] [place] [address] Chest 1 View (Portable) MR#: [id number] Acct: [id number] Name: LETY SPENCER Rep #: [id number] : 1955 F 62 From: George Riojas MD PCP: Elin Reynolds DO Status: REG ER Study: Chest 1 View (Portable) Date of Exam: 07/09/17 Exam# [id number] Ordering Dr: Keegan Adler DO STUDY: X-RAY CHEST REASON FOR EXAM: Female, 62 years old. Chest pain TECHNIQUE: Frontal and lateral views of the chest. COMPARISON: 09/01/2016. FINDINGS: The lungs are clear and expanded. There is no demonstrated pleural abnormality. Normal size heart. Normal mediastinum and clari. Normal visualized pulmonary arteries. Normal visualized aortic arch and descending thoracic aorta. Normal visualized thoracic spine. Normal visualized ribs, clavicles, and shoulders. There is no demonstrated abnormality of the visualized soft tissue structures of the upper abdomen. RAD/Chest 1 View (Portable) IMPRESSION: Normal x-ray examination of the chest. Electronically Signed: George Riojas MD at 16:28 EDT , Service support , CC: Keegan Adler DO; Elin Reynolds DO Clinical Biostatistics Director: Signed Elin Reynolds Start: 07-06-2017 End: 07-07-2017 SCREENING MAMM (CAD), BILAT Comments: See Note; NOTES: [facility] [place] Imaging Services [address] [place] [address] SCREENING MAMM (CAD), BILAT MR#: [id number] Acct: [id number] Name: LETY SPENCER Rep #: [id number] : 1955 F 62 From: Tashi Mathias MD PCP: Elin Reynolds DO Status: REG CLI Study: SCREENING MAMM (CAD), BILAT Date of Exam: 07/06/17 Exam# [id number] Ordering Dr: Elin Reynolds DO MAMMOGRAPHY - BILATERAL SCREENING REASON FOR EXAM: Female, 62 years old. Routine annual screening examination. PERTINENT HISTORY: Remote right excisional breast biopsy. TECHNIQUE: Digital bilateral breast rob (3D mammographic acquisition) in the CC and MLO projections. 2-D mediolateral oblique (MLO) and craniocaudad (CC) views of both breasts were obtained. CAD: Full Field Digital Mammography with Computer Added Detection was performed. COMPARISON: Comparison is made with prior study dated June 30, 2016. FINDINGS: Breast Composition: There are scattered areas of fibroglandular density. There are no dominant masses or suspicious calcifications. Stable benign-appearing bilateral axillary lymph nodes. No other significant abnormalities are identified. There has been no significant change since the prior study. BI/SCREENING MAMM (CAD), BILAT IMPRESSION: Stable bilateral screening mammogram. Yearly follow-up mammogram recommended. (A) ASSESSMENT CATEGORY: BIRADS Category 2: Benign. A letter regarding these results will be sent to the patient by the facility within 30 days. Approximately 10% of breast cancers are not detected by mammography. A normal mammogram should not delay biopsy of a clinically suspicious abnormality. [id number] Electronically Signed: Tashi Mathias MD at 8:39 EDT Tel [phone], Service support , CC: Elin Reynolds DO Clinical Biostatistics Director: Signed Elin Yessi Work Phone: Start: 05-08-2017 End: 05-09-2017 Small Bowel Series Only Comments: See Note; NOTES: [facility] [place] Imaging Services [address] [place] [address] Small Bowel Series Only MR#: [id number] Acct: [id number] Name: LETY SPENCER Rep #: [id number] : 1955 F 62 From: Justin Ng MD PCP: Elin Reynolds DO Status: REG CLI Study: Small Bowel Series Only Date of Exam: 05/08/17 Exam# [id number] Ordering Dr: Saravanan Clarke MD STUDY: SMALL BOWEL FOLLOW-THROUGH STUDY REASON FOR EXAM: Female, 62 years old. ABD PAIN/ABN CT SCAN CRAMPING, LOWER ABD PAIN/PRESSURE ON AND OFF DIARRHEA/CONSTIPATION RADIATION DOSAGE (If Supplied By Facility): CTDIvol = ( ) mGy, DLP = ( ) mGycm FLUOROSCOPY TIME (if supplied): ( ) minutes/seconds TECHNIQUE: Multiple views of the abdomen were performed after barium ingestion fluoroscopic examination of the terminal ileal loop is also performed with multiple spot views were obtained. 7 overhead films were obtained. FINDINGS: SOA ARCHITECT VIEW: The bowel gas pattern is unremarkable there is no evidence of free air in the abdomen. SMALL BOWEL FOLLOW-THROUGH: Normal progression of barium is seen throughout different parts of the small bowel the cecum is reached at approximately 150 minutes after barium ingestion. The duodenum, jejunum, and ileum mucosal pattern is unremarkable. Fluoroscopic examination of the terminal loop shows no abnormality. RAD/Small Bowel Series Only IMPRESSION: Unremarkable study. Electronically Signed: Justin Ng MD at 9:33 EDT Tel , Service support , CC: Elin Reynolds DO; Saravanan Clarke Clinical Biostatistics Director: Signed Bryanna Jeffery Gumar[place]hel Work Phone: Start: 05-05-2017 End: 05-05-2017 Upper Ext Joint Only(Routine) Comments: See Note; NOTE S: [facility] [place] Imaging Services [address] [place] [address] Upper Ext Joint Only(Routine) MR#: [id number] Acct: [id number] Name: LETY SPENCER Rep #: [id number] : 1955 F 62 From: Sabas Fox MD PCP: Elin Reynolds DO Status: REG CLI Study: Upper Ext Joint Only(Routine) Date of Exam: 05/05/17 Exam# [id number] Ordering Dr: Elin Reynolds DO STUDY: MRI LEFT SHOULDER REASON FOR EXAM: Female, 62 years old. Pain. Fall. TECHNIQUE: Standardized fat and water weighted pulse sequences were obtained in all 3 orthogonal planes. COMPARISON: X-ray April 16, 2017. FINDINGS: Tendinosis with thickening and high-grade bursal surface and intrasubstance distal tendon tear, series 6 image 16/22. There is infraspinatus tendinosis with tendon thickening, but without a demonstrated tendon tear. Normal subscapularis tendon. Normal teres minor tendon. Normal supraspinatus muscle. Normal infraspinatus muscle. Normal subscapularis muscle. Normal teres minor muscle. There is a small volume joint effusion of the glenohumeral joint. Normal humeral head and visualized proximal humerus. Normal biceps labral complex. Normal intracapsular long biceps tendon. Normal labrum. Normal capsulo- ligamentous complex. Normal rotator interval. There is mild osteoarthritis of the acromioclavicular articulation. There is a Type II morphology (curved) acromion, with a neutral orientation. There is minimal fluid distention of the subacromial bursa, consistent with mild subacromial-subdeltoid bursitis. Normal visualized coracohumeral and coracoacromial ligaments. Normal quadrilateral space. Normal axillary space. Normal deltoid muscle. Normal trapezius muscle. MRI/Upper Ext Joint Only(Routine) IMPRESSION: High-grade tear of the supraspinatus tendon. Electronically Signed: Sabas Fox MD at 23:21 EDT , Service support , CC: Elin Reynolds DO Clinical Biostatistics Director: Signed Elin Reynolds Work Phone: Start: 04-28-2017 End: 04-28-2017 Shoulder min 2 Views Comments: See Note; NOTES: [facility] [place] Imaging Services [address] [place] [address] Shoulder min 2 Views MR#: [id number] Acct: [id number] Name: LETY SPENCER Rep #: [id number] : 1955 F 62 From: Yusuf Novak MD PCP: Elin Reynolds DO Status: REG CLI Study: Shoulder min 2 Views Date of Exam: 04/28/17 Exam# [id number] Ordering Dr: Elin Reynolds DO STUDY: X-RAY - LEFT SHOULDER REASON FOR EXAM: Female, 62 years old. Persistent shoulder pain one week after injury TECHNIQUE: 4 view(s) of the shoulder. COMPARISON: None. FINDINGS: Normal glenohumeral articulation. Normal acromioclavicular joint. Normal acromion. Normal humeral head and visualized proximal humerus. Submillimeter calcific density at the margin of the greater tubercle consistent with a focal avulsion injury versus chronic calcific tendinitis. There is no demonstrated osseous destructive lesion. Normal visualized pulmonary apex. RAD/Shoulder min 2 Views IMPRESSION: Submillimeter cortical avulsion injury versus chronic calcific tendinitis at the margin of the greater tubercle. Electronically Signed: Armin Novak MD at 12:34 EDT , Service support , CC: Elin Reynolds DO Clinical Biostatistics Director: Signed Elin Reynolds Work Phone: Start: 04-15-2017 End: 04-15-2017 Emergency Department Summary Comments: See Note; NOTES : [facility] [place] Medical Records Department [address] [facility] [place] [address] Emergency Department Summary 04/14/17 1715 MR#: [id number] Acct: [id number] Name: LETY SPENCER Rep #: [id number] : 1955 62 From: Joyce Rahman MD PCP: Elin Reynolds DO Status: DEP ER - ER Visit Summary Date of Service: 04/14/17 Chief Complaint: Abdominal pain History of Present Illness: The patient is a [address] Reynolds. She reports she has lower abdominal pain that began yesterday. She reports it is a constant aching pain with episodes of severe cramping. Pain is 9 out of 10 at worst and 8 out of 10 currently. Is worsened by movement or standing. It is relieved by laying down remaining still. She has had nausea without vomiting. She reports her last bowel movement was today. She has had no melena or hematochezia. She has had frequent urination for the past 2 days. No dysuria or hematuria. No fever or chills. Physical Examination: Vitals: Stable. Afebrile. General: Well-nourished and well-developed. Head: Normocephalic atraumatic. Neck: Supple, no lymphadenopathy. No JVD. Nontender. Cardiovascular: Regular rate and rhythm. No murmurs. Respiratory: No respiratory distress. Clear to auscultation bilaterally. Abdominal: Soft, mild tenderness palpation is diffuse over her lower abdomen, this is worst in the left lower quadrant, nondistended, normal bowel sounds. No guarding, rebound, or peritoneal signs. Back: Nontender. Extremities: Nontender, no edema. Skin: Normal color, no rash. Neurologic: Alert and oriented 3. Cranial nerves II through XII are intact. Normal strength and sensation. Psych: Normal affect. Test Results: CBC is normal. Chem-7 is marked for glucose of 113. Urinalysis is negative. CT abdomen pelvis with p.o. and IV contrast shows normal appendix. It shows several mildly distended small bowel loops with air-fluid levels with mild short segment wall thickening of 1 of these loops. This is compatible with her history of Crohn's disease. Emergency Department Course and Treatment: Patient had an IV placed. She was given a liter of normal saline. She is given morphine and Zofran IV. She is resting comfortably. I again discussed the possibility of Crohn's with the patient. She states that she had a colonoscopy 2 years ago that did not show Crohn's disease and she has never been told she has Crohn's disease. Treatment Plan: At this time I do not have a good explanation for the findings on the CT. She was discussed with Dr. Crenshaw who is not familiar with her. The patient feels well and would like to go home. She be discharged instructions to follow-up with Dr. Reynolds tomorrow for further evaluation and potential referral to gastroenterology. She should also be able to get the results of her colonoscopy and reviewed this. She given a prescription for Percocet and Zofran. Return to the emergency department for any worsening symptoms. Disposition: To home in improved and stable condition. Impression: 1. Abdominal pain, uncertain cause. This note was generated with m0um0u dictation software. It may contain incorrect words, spelling, and punctuation that were not noted in review of the chart prior to signing ED Disposition - Plan for ED Patient: Disposition: Home or Assisted Living Chief Complaint: Abd Pain Instructions: ED Abdominal Pain Unkn Cause Prescriptions: Oxycodone HCl/Acetaminophen [Percocet 5/325] 1 tablet PO Q6H PRN PRN 5 Days #20 tablet PRN Reason: Pain Ondansetron [Zofran Odt] 4 mg PO Q8H PRN PRN #10 tablet PRN Reason: Nausea Referrals: Elin Reynolds, [Primary Care Provider] - 1 Day for another exam What to do if you have Problems For any increased pain, shortness of breath, bleeding, nausea or vomiting, chest pain, or any unexpected problems, contact your Primary Care Provider. Call [facility] ([phone]) or report to the closest Emergency Room. Call 911 if necessary. 04/15/17 0010 <Electronically signed by Joyce Rahman MD> Date Joyce Rahman MD Cosigner Signature (If Indicated): Date CC: Elin Alonso Start: 04-14-2017 End: 04-14-2017 Abdomen/Pelvis WITH Contrast Comments: See Note; NOTES : [facility] [place] Imaging Services [address] [place] [address] Abdomen/Pelvis WITH Contrast MR#: [id number] Acct: [id number] Name: LETY SPENCER Rep #: [id number] : 1955 F 62 From: Jostin Shukla MD PCP: Elin Reynolds DO Status: [facility] ER Study: Abdomen/Pelvis WITH Contrast Date of Exam: 04/14/17 Exam# [id number] Ordering Dr: Joyce Rahman MD STUDY: CT ABDOMEN AND PELVIS WITH CONTRAST REASON FOR EXAM: Female, 62 years old. Lower abdominal pain and nausea, history of Crohn's RADIATION DOSAGE (If Supplied By Facility): CTDIvol = ( 16.01 ) mGy, DLP = ( 1176.30 ) mGycm TECHNIQUE: Transaxial images were obtained from the dome of the diaphragm to the symphysis pubis with oral contrast. 100CC ml of Isovue 300 contrast was administered. Sagittal and coronal images were reconstructed. Individualized dose optimization techniques were used for this CT. COMPARISON: None. FINDINGS: There are mild streaky fibrotic changes of the right middle lobe and right lower lobe. The visualized portions of the heart are within normal limits. Normal liver. Normal gallbladder and extrahepatic biliary system. Normal spleen. Normal pancreas. Normal bilateral adrenal glands. Normal right kidney. Normal left kidney. Normal visualized stomach. There are several mildly distended small bowel loops with air-fluid levels in the mid anterior right abdomen. There is mild short segment wall thickening of one of these loops of bowel best seen on axial images 59 and 60. There is scattered colonic diverticuli with no evidence of associated diverticulitis. The appendix is visualized and appears normal. There are calcified plaques of the abdominal aorta. Normal inferior vena cava. Normal retroperitoneum. Normal urinary bladder. Status post hysterectomy changes are noted. A metallic foreign body is seen in the right adnexa consistent with a tubal ligation clip. There is a tiny amount of free fluid in the deep pelvis. Normal abdominal wall. There are status post posterior spinal fusion changes with interpeduncular screws from the L4-S1 level. There are degenerative changes of the visualized lower thoracic spine. CT/Abdomen/Pelvis WITH Contrast IMPRESSION: 1. Several mildly distended small bowel loops with air-fluid levels in the mid anterior right abdomen, with mild short segment wall thickening of one of these loops of bowel. This finding would be compatible with the clinical history of Crohn's disease. 2. Status post hysterectomy. Metallic foreign body seen in the right adnexa consistent with a tubal ligation clip. 3. There is a tiny amount of free fluid in the deep pelvis. 4. Status post posterior spinal fusion changes with interpeduncular screws from the L4-S1 level. Electronically Signed: Jostin Shukla MD at 18:52 EST , Service support , CC: Elin Reynolds DO; Joyce Rahman MD Clinical Biostatistics Director: Signed Elin Reynolds Start: 03-25-2017 End: 03-25-2017 Pulmonary Function Report Comp Comments: See Note; NOT ES: [facility] [place] Pulmonary Services/Neurology [address] [address] MR#: [id number] Acct: [id number] Name: LETY SPENCER Rep #: [id number] : 1955 62 From: Darrick Kramer MD Referring Dr: Ayush Leblanc D.O. Status: REG CLI Ordering Dr: Date: Location: [facility] Sex: F C COMPLETE PULMONARY FUNCTION TEST INTERPRETATION Brief HPI: Patient is a 62 year old female, currently under the care of Dr. Leblanc, who presents to [facility] for complete pulmonary function tests secondary to diagnosis of asthma. Respiratory therapist reports good effort and reproducible results. Interpretation: Forced expiration spirometry shows no large airways obstructive ventilatory defect with an FEV1 of 78 % predicted. There is no significant bronchodilator response by ATS criteria. Spirograms are of good quality and plateau slowly, indicating slowly emptying areas of the lungs. The respiratory flow volume loop shows decreased expiratory flow rates at high lung volumes consistent with small airways obstruction. Lung volumes by body plethysmography show a normal total lung capacity at 4.73 L, 97 % predicted. All other lung volumes are within normal limits. Diffusion capacity by carbon monoxide is normal at 74 % predicted. The airway resistance is slightly elevated. Compared to previous pulmonary function tests from 02/08/2016, there has been a significant change in FVC and DLCO. Impression: Grossly normal pulmonary function test with stigmata of small airways disease. There has been worsening in FVC and DLCO compared to previous testing 03/25/17 1542 <Electronically signed by Darrick Kramer MD> Date Darrick Kramer MD CC: Darrick Kramer MD; Ayush Leblanc D.O.; Elin Reynolds DO Date Dictated: 03/25/17 1540 Date Transcribed: 03/25/171539 Clinical Biostatistics Director: JOSEPH Signed Elin Reynolds Start: 02-26-2017 End: 02-26-2017 Pulmonary Visit Report Comments: See Note; NOTES: [facility] [address] [place] [address] OFFICE VISIT Date of Service: 02/26/17 MR#: [id number] Acct: [id number] Name: LETY SPENCER Rep #: [id number] : 1955 Provider: Ayush Leblanc D.O. Age/Sex: 61/F Location: [facility] [place] [place].[facility] Status: Signed Assessment AND Plan 1. Asthma J45.909 Plan The patient is currently symptomatically well controlled with the use of Breo and albuterol. Given the infrequency with which she relies on her rescue inhaler, could consider potential de-escalation in her inhaler therapy at her follow-up office visit. Would attempt to see if the patient's symptoms remain controlled on an inhaled corticosteroid as monotherapy maintenance inhaler. I have asked that she return in the spring, when her allergic rhinitis tends to flare, to ensure that her breathing quality remained stable. Refills for her baseline inhalers will be provided. The patient is due to have repeat pulmonary function testing prior to her follow-up office visit with us. Orders Orders: Medications New: 2. Seasonal allergic rhinitis J30.2 Plan Currently asymptomatic. Singulair and/or Flonase could be utilized in the future for symptom control. Plan Detail Other Medications New: fluticasone-vilanterol 100-25 mcg/dose (Breo Ellipta) after inha1 inh Inhalation Q24H lation, rinse mouth with water and spit out; do not swallow Follow Up 4 Months (DMB) HPI HPI Comments Details: The patient is a 61-year-old female who presents to the clinic today for a routine scheduled follow-up office visit due to underlying asthma. If you recall, I initially saw the patient in January 2016, after she presented to the clinic with an established asthma diagnosis. She was initially diagnosed sometime in her late 20s. She also reported issues with exercise-induced bronchospasm. She had been seen previously by a pulmonary provider at [facility] until 2008. She is a lifelong non-smoker. Current triggers for worsening of her breathing quality have included: Air cigarette smoke exposure. She has a history of seasonal allergic rhinitis. Pulmonary function testing completed in January 2016 showed the presence of a mild large airways obstructive ventilatory defect with an associated significant response to aerosolized bronchodilators. The patient's prior RAST test was largely unremarkable. Serum IgE level was 38. Today, the patient reports overall stability in her breathing quality. She is currently being maintained on Breo and albuterol. She reports quite infrequent use of her rescue inhaler. She has not been seen in the emergency department or urgent care since her last office visit here. She is currently without any URI symptoms. She reports no significant shortness of breath, chest tightness, wheezing or cough. Her weight has been relatively stable. She denies fevers, chills or night sweats. She denies chest pain, dizziness or lightheadedness. She does report that her seasonal allergies tend to flare in the spring and fall months. Intake Vital Signs02/26/17 Height 5 ft 4 in 02/26/17 Weight: 209 lb Intake Visit Reasons: 6 M FU Allergies buprenorphine [From Butrans] Allergy (Mild, Verified 01/31/17 11:55) nortriptyline Allergy (Mild, Verified 01/31/17 11:55) omeprazole Allergy (Mild, Verified 01/31/17 11:55) Penicillins Allergy (Mild, Verified 01/31/17 11:55) terbinafine Allergy (Mild, Verified 01/31/17 11:55) codeine Allergy (Verified 03/29/16 12:38) Unknown naproxen [From Naprosyn] Allergy (Verified 03/29/16 12:38) Unknown nortriptyline HCl [From Pamelor] Allergy (Verified 03/29/16 12:38) Unknown Medications Albuterol Aerosols [Ventolin Aerosols] 2.5 mg INHALATION Q4HWA.RT 11/05/15 [History Confirmed 03/29/16] Buprenorphine [Butrans] 1 ea TD QWEEK 11/05/15 [History Confirmed 03/29/16] Enalapril Maleate [Vasotec] 10 mg PO DAILY 11/05/15 [History Confirmed 03/29/16] Gabapentin [Neurontin] 200 mg PO TIDCM 11/05/15 [History Confirmed 03/29/16] Hydrochlorothiazide [Hctz] 12.5 mg PO DAILY 11/05/15 [History Confirmed 03/29/16] Meclizine HCl [Antivert] 25 mg PO TID PRN PRN #20 tab 11/05/15 [Rx Confirmed 03/29/16] Pantoprazole Sodium [Protonix] 40 mg PO DAILY 11/05/15 [History Confirmed 03/29/16] Simvastatin [Zocor] 40 mg PO QHS 11/05/15 [History Confirmed 03/29/16] TraMADol [Ultram (G)] 50 mg PO Q4H PRN PRN #8 tab 11/05/15 [Rx Confirmed 03/29/16] TraMADol [Ultram] 40 mg PO DAILY 11/05/15 [History Confirmed 03/29/16] Zolpidem Tartrate [Ambien] 10 mg PO DAILY PRN 11/05/15 [History Confirmed 03/29/16] albuterol sulfate HFA 90 mcg/actuation aerosol inhaler 2 puff INHALATION Q6H PRN PRN #3 device 02/26/17 [Rx Confirmed 02/26/17] fluticasone 100 mcg-vilanterol 25 mcg/dose powder for inhalation 1 inh INHALATION Q24H #1 device 02/26/17 [Rx Confirmed 02/26/17] PFSH Medical History Exercise-induced bronchospasm (Chronic) Hypertension (Chronic) Hyperlipidemia (Chronic) GERD (gastroesophageal reflux disease) (Chronic) 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) Back pain, sacroiliac (Chronic) 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) Asthma (Chronic) Surgical History History of back surgery (Resolved) History of tubal ligation (Resolved) History of tonsillectomy (Resolved) History of hysterectomy (Resolved) History of D AND C (Resolved) History of right breast biopsy (Resolved) Family History Mother Anxiety Hypertension kidney/renal disease High cholesterol Brother Heart disease Cancer Bladder Cancer Father Heart disease Social History Smoking Status: Never smoker second hand exposure: No alcohol intake: never substance use type: does not use caffeine: No what type of physical activity do you participate in: none Review of Systems Const CONSTITUTIONAL: Negative anorexia, body ache, chills, daytime sleepiness, fever(s), night sweats, oral thrush, stops breathing during sleep, weight loss, sleeping in chair, fatigue, weight loss, weight gain, frequent colds, seasonal allergies, other, headache(s) or orthopnea EETM Ear Nose Throat Mouth: Positive hearing normal; negative hoarseness, dry mouth in morning, change in vision, itchy eyes, eye pain, swallowing Difficulty, ear pain, headache(s), mouth pain, nasal congestion, nasal discharge, sinus pain, sinus pressure, sore throat, other, hard of hearing, nose bleed or post nasal drip Cardio Cardiovascular: Negative chest pain, chest pain at rest, chest pain with activity, irregular heart rhythm, edema, shortness of breath when lying down, palpitations, other or murmur Resp Respiratory: Positive as per HPI; negative shortness of breath, pain with cough, wheezing, chest congestion, cough, chest tightness, pain on inspiration, inhalers, increase use of rescue inhalers, snoring, apnea or other Gastro Gastrointestional: Negative bloody stools, change in appetite, difficulty swallowing, reflux, hematemesis, melena stool, loose stool, constipation or other Genitourinary: Negative blood in urine, nocturia, pain with urination or other Musc Musculoskeletal: Negative body pain, back pain, neck pain or other Skin/Breast Skin/Breast: Negative dry skin, itching, unusual bruising, breast lump, other or rash Neuro Neurological: Positive restless legs; negative confusion, weakness or other Psych Psychocological: Positive abnormal sleep pattern; negative anxiety, thoughts of hurting self/others, hopelessness or other Lymph Lymphatic: Negative easy bleeding, easy bruising, other or swollen lymph nodes Exam Const Constitutional: Positive conversant, cooperative, in no acute respiratory distress, well developed, well nourished, good hygiene and obese Head Head: Positive normocephalic and atraumatic; negative cyanosis of lips/distal nose Eyes Eye: Positive clear conjunctiva; negative nystagmus or scleral abnormality Ears Ear: Positive hearing normal; negative hard of hearing Nose Nose: Positive external nose normal; negative epistaxis Mouth Mouth: Positive oral mucosae normal, no lesions and posterior oropharynx is adequate; negative post nasal drip or oral thrush present Neck Neck: Positive normal visual inspection and trachea midline; negative lymphadenopathy Chest Wall Chest: Positive symmetric chest movement Normal AP diameter. Resp lung sounds: Positive clear to auscultation and good air exchange; negative wheezes, rhonchi or rales Cardio Cardiac: Positive regular rate, regular rhythm, S1 normal and S2 normal; negative murmur, rub or gallop GI GI: Positive normal bowel sounds and obese Soft without distention Genitourinary: Positive deferred Musc Musculoskeletal: Positive steady gait Skin Pulmonary Skin Exam: Positive intact; negative rash or lesion Pulses Pulse: Yes Pedal pulses present: Extremities Extremities: No clubbing, No cyanosis, No edema Neuro Neurologic: Yes conversant, Yes no focal neuro deficits, Yes cooperative Lymph Lymphatic: No lymphadenopathy Psych Appearance: Positive grossly normal Mental Status: Positive mental status grossly normal Mood: Positive congruent mood Affect: Positive normal affect 02/26/17 0955 <Electronically signed by Ayush Leblanc DO> Date Ayush Leblanc DO Cosigner Signature: Date (if applicable) CC: Elin Alonso Start: 11-24-2016 Extraction of Iliac Bone Marrow, Percutaneous Approach Chon Vazquez Start: 11-24-2016 Fusion of Lumbosacral Joint with Autologous Tissue Substitute, Posterior Approach, Posterior Column, Open Approach Chon Vazquez Start: 11-24-2016 Fusion of Lumbosacral Joint with Interbody Fusion Device, Posterior Approach, Anterior Column, Open Approach Chon Vazquez Start: 11-24-2016 Release Lumbar Nerve, Open Approach Chon Vazquez Start: 11-24-2016 Removal of Internal Fixation Device from Lumbar Vertebral Joint, Open Approach Chon Vazquez Start: 09-15-2016 End: 09-18-2016 Bacteria identified in Sputum by Culture Roya Oliveira VASCULAR SURGEON Work Phone: Start: 09-15-2016 End: 09-18-2016 [facility] Roya Oliveira VASCULAR SURGEON Work Phone: Start: 09-15-2016 End: 09-18-2016 Follow up Appt 1 week Roya Oliveira VASCULAR SURGEON Work Phone: Start: 09-15-2016 End: 09-18-2016 Bacteria sputum culture Roya Oliveira VASCULAR SURGEON Work Phone: Start: 09-15-2016 End: 09-18-2016 [facility] Roya Oliveira VASCULAR SURGEON Work Phone: Start: 09-15-2016 End: 09-18-2016 Follow up Appt 1 week Roya Oliveira CNP Work Phone: Start: 09-01-2016 End: 09-01-2016 Chest PA and Lateral Comments: See Note; NOTES: [facility] [place] Imaging Services [address] [place] [address] [place] 4d Chest PA and Lateral MR#: [id number] Acct: [id number] Name: LETY SPENCER Rep #: [id number] : 1955 F 61 From: Mykel Rios MD PCP: Elin Reynolds DO Status: REG CLI Study: Chest PA and Lateral Date of Exam: 09/01/16 Exam# [id number] Ordering Dr: Bryanna Crenshaw MD STUDY: X-RAY CHEST REASON FOR EXAM: Female, 61 years old. Acute asthma flare TECHNIQUE: PA and lateral views of the chest. COMPARISON: No prior chest x-rays from January 31, 2016. FINDINGS: The lungs are clear and expanded. There is no demonstrated pleural abnormality. Normal size heart. Normal mediastinum and clari. Normal visualized pulmonary arteries. Normal visualized aortic arch and descending thoracic aorta. There are mild diffuse degenerative changes of the visualized thoracic spine. Normal visualized ribs, clavicles, and shoulders. There is no demonstrated abnormality of the visualized soft tissue structures of the upper abdomen. RAD/Chest PA and Lateral IMPRESSION: Stable chest. No signs of acute cardiopulmonary disease Electronically Signed: Mykel Rios MD, FACR at 12:40 EDT , Service support , CC: Bryanna Crenshaw MD; Elin Reynolds DO Clinical Biostatistics Director: Signed Bryanna Crenshaw Work Phone: Start: 08-12-2016 End: 08-12-2016 NCS and/or EMG Patient Comments: See Note; NOTES: [facility] [place] Pulmonary Services/Neurology [address] [place] [address] NCS and/or EMG Patient MR#: [id number] Acct: [id number] Name: LETY SPENCER Rep #: [id number] : 1955 61 From: Mansi Chance MD Referring Dr: Dave Tello MD Status: REG CLI Ordering Dr: Dave Tello MD Date: 08/06/16 Location: [facility]N Sex: F C DATE OF SERVICE: 08/06/2016 The patient presents for electrodiagnostic testing of the left lower limb. She has a chief complaint of pain radiating from the back into the left leg. ELECTRODIAGNOSTIC FINDINGS: On nerve conduction study, peroneal and tibial motor responses are within normal limits. Sensory responses are normal. Normal tibial and peroneal F waves. Normal H reflex bilaterally. On needle EMG, all muscles tested in the left lower limb showed no evidence of denervation with normal motor unit action potentials. No denervation in the left lumbar paraspinals. ELECTRODIAGNOSTIC ASSESSMENT: This is a normal electrodiagnostic study of the left lower limb. There is no electrodiagnostic evidence for peripheral neuropathy or lumbosacral radiculopathy. If there are any questions in regard to this exam, please do not hesitate to contact me. Sincerely, Mansi Chance MD T: [facility] JOB: [id number] 08/12/16 1317 <Electronically signed by Mansi Chance MD> Date Mansi Chance MD CC: Mansi Chance; Dave Tello MD; Elin Reynolds DO Date Dictated: 08/06/16 1021 Date Transcribed: 08/06/16 1021 Clinical Biostatistics Director: Signed Elin Reynolds Start: 06-30-2016 End: 06-30-2016 SCREENING MAMM (CAD), BILAT Comments: See Note; NOTES: [facility] [place] Imaging Services [address] [place] [address] Verdana 4d SCREENING MAMM (CAD), BILAT MR#: [id number] Acct: [id number] Name: LETY SPENCER Rep #: [id number] : 1955 F 61 From: Tashi Mathias MD PCP: Elin Reynolds DO Status: REG CLI Study: SCREENING MAMM (CAD), BILAT Date of Exam: 06/30/16 Exam# [id number] Ordering Dr: Elin Reynolds DO MAMMOGRAPHY - BILATERAL SCREENING REASON FOR EXAM: Female, 61 years old. Routine annual screening examination. PERTINENT HISTORY: Prior right excisional breast biopsy. TECHNIQUE: Digital bilateral breast rob (3D mammographic acquisition) in the CC and MLO projections. 2-D mediolateral oblique (MLO) and craniocaudad (CC) views of both breasts were obtained. CAD: Full Field Digital Mammography with Computer Added Detection was performed. COMPARISON: Comparison is made with prior outside examination dated June 01, 2015. FINDINGS: Breast Composition: There are scattered areas of fibroglandular density. There are no dominant masses or suspicious calcifications. Focal area of architectural distortion is seen in the upper aspect of the right breast anteriorly. This most likely presents the site of the prior excisional biopsy. No other significant abnormalities are identified. There has been no significant change since the prior study. HPBI/SCREENING MAMM (CAD), BILAT IMPRESSION: Stable bilateral screening mammogram. Yearly follow-up mammogram recommended. (A) ASSESSMENT CATEGORY: BIRADS Category 2: Benign. A letter regarding these results will be sent to the patient by the facility within 30 days. Approximately 10% of breast cancers are not detected by mammography. A normal mammogram should not delay biopsy of a clinically suspicious abnormality. [id number] Electronically Signed: Tashi Mathias MD at 15:45 EDT Tel [phone], Service support , CC: Elin Reynolds DO Clinical Biostatistics Director: Signed Elin Reynolds Work Phone: Start: 06-03-2016 End: 06-06-2016 *[id number] Allergens,[id number] Ayush Leblanc DO Work Phone: Start: 06-03-2016 End: 06-04-2016 IgE [Mass/volume] in Serum Ayush Leblanc DO Work Phone: Start: 06-03-2016 End: 06-06-2016 *[id number] Allergens,[id number] Ayush Leblanc DO Work Phone: Start: 06-03-2016 End: 06-04-2016 Globulin Ayush Leblanc DO Work Phone: Start: 06-03-2016 End: 06-04-2016 IgE [Mass/volume] in Serum Ayush Leblanc DO Work Phone: Start: 04-03-2016 End: 04-03-2016 Spine Lumbar (Routine) Comments: See Note; NOTES: [facility] [place] Imaging Services [address] [place] [address] Ver[place] 4d Spine Lumbar (Routine) MR#: [id number] Acct: [id number] Name: LETY SPENCER Rep #: [id number] : 1955 F 61 From: Mykel Rios MD PCP: Elin Reynolds DO Status: REG CLI Study: Spine Lumbar (Routine) Date of Exam: 04/03/16 Exam# [id number] Ordering Dr: Dave Tello MD STUDY: MRI LUMBAR SPINE WITHOUT CONTRAST REASON FOR EXAM: Female, 61 years old. Back pain, left leg pain. History of previous surgery in October 2012. Before meals is removed from the sciatic nerve. TECHNIQUE: Standardized fat and water weighted pulse sequences were obtained in the sagittal and axial planes. COMPARISON: Prior MRI of the lumbar spine on March 30, 2015 FINDINGS: T12-L1: Normal endplates. Normal disc height, hydration and morphology. Normal bilateral facet joints. Normal central canal and bilateral lateral recesses. Normal bilateral intervertebral neural foramina. Normal lumbar lordosis. There is no substantial scoliosis. Normal conus medullaris that terminates at the L1-2 level L1-2: Normal endplates. Normal disc height, hydration and morphology. Normal bilateral facet joints. Normal central canal and bilateral lateral recesses. Normal bilateral intervertebral neural foramina. L2-3: Normal endplates. Normal disc height, hydration and morphology. Normal bilateral facet joints. Normal central canal and bilateral lateral recesses. Normal bilateral intervertebral neural foramina. L3-4: There is a focal area of signal alteration in the anterior aspect of the vertebral body of L3, improved since the last examination (sagittal STIR series 4 image 7), probably reflecting an old fracture. Normal endplates. Normal disc height, hydration and morphology. Normal bilateral facet joints. Normal central canal and bilateral lateral recesses. Normal bilateral intervertebral neural foramina. L4-5: Normal endplates. Status post posterior fusion with transpedicular screws and laminectomy. Normal disc height, hydration and morphology. Normal bilateral facet joints. Normal central canal and bilateral lateral recesses. There is bilateral foraminal stenosis with impingement of the right L4 nerve root. L5-S1: Normal endplates. Status post laminectomy. Normal disc height, hydration and morphology. There is bilateral facet arthrosis. Normal central canal and bilateral lateral recesses. There is bilateral foraminal stenosis with impingement of the L5 nerve roots. Normal visualized sacral ala. Postoperative changes in the posterior soft tissues at L4-L5 and L5-S1 are again noted MRI/Spine Lumbar (Routine) IMPRESSION: Focal area of signal alteration in the anterior superior aspect of the vertebral body of L3 improved since the last examination, probably reflecting an old fracture. No vertebral body collapse is noted L4-5 status post posterior fusion with transpedicular screws and laminectomy. Right foraminal stenosis with impingement of the L4 nerve root. No changes since the of prior study. L5-S1 status post laminectomy. Bilateral foraminal stenosis with impingement of the L5 nerve roots. No changes since the prior study Electronically Signed: Mykel Rios MD, FACR at 8:42 EST , Service support [phone], CC: Dave Tello MD; Elin Reynolds DO Clinical Biostatistics Director: Signed Elin Reynolds Start: 03-29-2016 End: 03-29-2016 Discharge Instruction Comments: See Note; NOTES: [facility] [place] Medical Records Department [address] [place] [address] Discharge Instruction 03/29/16 1357 MR#: [id number] Acct: [id number] Name: LETY SPENCER Rep #: [id number] : 1955 61 From: Ren Morrison MD PCP: Elin Reynolds DO Status: REG ER ED Disposition - Plan for ED Patient: Disposition: Home or Assisted Living Chief Complaint: Lower Extremity Injury Instructions: ED Neck Back Pain General Referrals: Elin Reynolds DO [Primary Care Provider] - Robert Downing [STAFF PHYSICIAN] - Keep Matthew appointment What to do if you have Problems For any increased pain, shortness of breath, bleeding, nausea or vomiting, chest pain, or any unexpected problems, contact your Primary Care Provider. Call [facility] ([phone]) or report to the closest Emergency Room. Call 911 if necessary. 03/29/16 1358 <Electronically signed by Ren Morrison MD> Date Ren Morrison MD Cosigner Signature (If Indicated): Date CC: Elin Alonso Start: 03-29-2016 End: 03-29-2016 Emergency Department Summary Comments: See Note; NOTES : [facility] [place] Medical Records Department [address] [place] [address] Emergency Department Summary 03/29/16 1345 MR#: [id number] Acct: [id number] Name: LETY SPENCER Rep #: [id number] : 1955 61 From: Ren Morrison MD PCP: Elin Reynolds DO Status: REG ER - ER Visit Summary Date of Service: 03/29/16 Chief Complaint: Charge nurse documents lower extremity pain. Patient reports back pain for years worse past 3 weeks History of Present Illness: The patient is a 61 F who presents with increased left lower back pain with increased pain walking. She denies any bowel bladder dysfunction. She denies saddle paresthesia or anesthesia. She denies any radicular pain. She denies foot drop. She denies quadricep weakness going up or down steps. She denies any urologic symptoms. She has no history of trauma. Physical Examination: Patient is a heavyset woman who appears uncomfortable. Vital signs are noted. HEENT, neck, lung, heart and abdomen exam are unremarkable. She has pain the patient over the left SI joint. Shai Agustin for test right and left elicits pain left SI joint. Straight leg test is negative on the right and negative crossover. Patient reports pain with elevation to 10 . Patella and ankle reflex are 2+ and symmetric. EHL is intact. There is no clonus or Babinski. She has normal perianal sensation. DP and PT pulses are palpable. Test Results: No tests were obtained. Emergency Department Course and Treatment: IV was established and patient received 4 mg of Valium IV push, 8 mg of morphine IV push and 30 mg of Toradol IV push. Patient inquired about an MRI. She was informed based on my history and physical and what I have read and what I have been taught she does not meet criteria for an MRI in the emergency department. Patient was reassessed at 1350. She reports marked improvement. Plan is additional dose of Valium and morphine 2 and 4 mg respectively and discharge to home. Since she is in pain management scripts were not written Disposition: Discharge to home in stable and improved condition Impression: Acute exacerbation left low back pain Pain to palpation left SI joint History of prior back surgery. ED Disposition - Plan for ED Patient: Chief Complaint: Lower Extremity Injury Referrals: Elin Reynolds DO [Primary Care Provider] - What to do if you have Problems For any increased pain, shortness of breath, bleeding, nausea or vomiting, chest pain, or any unexpected problems, contact your Primary Care Provider. Call [facility] ([phone]) or report to the closest Emergency Room. Call 911 if necessary. 03/29/16 1977 <Electronically signed by Ren Morrison MD> Date Ren Morrison MD Cosigner Signature (If Indicated): Date CC: Dave Tello MD; Elin Alonso Start: 03-18-2016 End: 03-18-2016 Abdomen Limited Comments: See Note; NOTES: [facility] [place] Imaging Services [address] [place] [address] [place] 4d Abdomen Limited MR#: [id number] Acct: [id number] Name: LETY SPENCER Rep #: [id number] : 1955 F 61 From: Tashi Mathias MD PCP: Elin Reynolds DO Status: REG CLI Study: Abdomen Limited Date of Exam: 03/18/16 Exam# [id number] Ordering Dr: Elin Reynolds DO STUDY: ABDOMINAL ULTRASOUND - RIGHT UPPER QUADRANT REASON FOR VISIT: Female, 61 years old. History of pancreatic mass. TECHNIQUE: Ultrasound evaluation of the right upper quadrant was performed with real-time and static toth-scale imaging. TECHNICAL QUALITY: Adequate. COMPARISON: None. FINDINGS: Liver: The liver measures 15.2 cm. There is increased echogenicity consistent with fatty infiltration. The bile ducts are within normal limits. There is hepatic color flow. The direction of portal flow is hepatopetal. There is no demonstrated mass lesion. Gallbladder: Normal distended gallbladder. The gallbladder wall measures 1.6 mm. There is a negative sonographic Kearns's sign. There is no pericholecystic fluid. There are no gallstones. Common Bile Duct (C.B.D.): The common bile duct measures 3.6 mm. Pancreas: Normal size of the head, body and tail of the pancreas. There is normal echogenicity of the pancreas. There is a 5 mm x 6 mm x 5 mm hypoechoic nodule in the uncinate process of the pancreas. This is a known finding. Right Kidney: Normal size of the right kidney. The right kidney measures 10.8 cm x 4.5 cm x 5.0 cm. Normal renal cortex. The right cortex measures 1.6 cm. There is no demonstrated renal mass or cyst. There is no right hydronephrosis. US/Abdomen Limited IMPRESSION: 5 mm x 6 mm x 5 mm hypoechoic solid nodule in the uncinate process of the pancreas as described. Fatty infiltration of the liver. Electronically Signed: Tashi Mathias MD at 11:16 EST Tel [phone], Service support [phone], CC: Elin Reynolds DO Clinical Biostatistics Director: Signed Elin Reynolds Work Phone: Start: 02-10-2016 End: 02-10-2016 Pulmonary Function Report Comp Comments: See Note; NOT ES: [facility] [place] Pulmonary Services/Neurology [address] [place] [id number] Pulmonary Function Test (Comp) MR#: [id number] Acct: [id number] Name: LETY SPENCER Rep #: [id number] : 1955 60 From: Ayush Leblanc DO Referring Dr: Darrick Kramer MD Status: REG CLI Ordering Dr: Darrick Kramer MD Date: 02/08/16 Location: [facility] Sex: F C DATE OF SERVICE: February 08, 2016. INTRODUCTION: The patient is a 60-year-old female currently being seen by Dr. Reynolds that presents for pulmonary function testing secondary to a diagnosis of asthma. Respiratory therapy reports good patient effort and reports no other concerns. Bronchodilators were used during testing. INTERPRETATION: Forced expiration spirometry demonstrates the presence of a mild large airways obstructive ventilatory defect with a significant response to aerosolized bronchodilators. Spirograms are of good quality and do not plateau indicating slow emptying of the lungs. The respiratory flow volume loop reveals decreased expiratory flow rates at all lung volumes consistent with airways obstruction. Body plethysmography was performed. Lung volumes to be within normal limits. However, there is a slight trend towards hyperinflation and air trapping. The airway resistance is elevated, suggestive of an increase in airway restriction. The diffusing capacity by single breath CO is normal. IMPRESSION: These pulmonary function studies demonstrate the presence of a mild large airways obstructive ventilatory defect with significant response to aerosolized bronchodilators. Lung volumes are currently within normal limits. Diffusing capacity is normal. The pattern of the study is suggestive of asthma or chronic bronchitis. There are no previous pulmonary function studies available for comparison. DO Tina Peña C: Referring Provider . T: [facility] JOB: [id number] 02/10/16 0701 <Electronically signed by Ayush Leblanc DO> Date Ayush Leblanc DO CC: Darrick Kramer MD; Ayush Leblanc D.O.; Elin Reynolds DO Date Dictated: 02/08/16 1358 Date Transcribed: 02/08/161357 Clinical Biostatistics Director: Signed Darrick Kramer Work Phone: Start: 01-31-2016 End: 01-31-2016 Chest PA and Lateral Comments: See Note; NOTES: [facility] [place] Imaging Services [address] [place] [address] Verdana 4d Chest PA and Lateral MR#: [id number] Acct: [id number] Name: LETY SPENCER Rep #: [id number] : 1955 F 60 From: Federico Coleman DO PCP: Elin Reynolds DO Status: [facility] CLI Study: Chest PA and Lateral Date of Exam: 01/31/16 Exam# [id number] Ordering Dr: Esteban Reyes STUDY: X-RAY CHEST REASON FOR EXAM: Female, 60 years old. Cough TECHNIQUE: PA and lateral views of the chest. COMPARISON: 02/22/2012 FINDINGS: The lungs are clear and expanded. There is no demonstrated pleural abnormality. Normal size heart. Normal mediastinum and clari. Normal visualized pulmonary arteries. There is mild calcification of the aortic arch. There are diffuse degenerative changes of the visualized thoracic spine. Normal visualized ribs, clavicles, and shoulders. There is no demonstrated abnormality of the visualized soft tissue structures of the upper abdomen. RAD/Chest PA and Lateral IMPRESSION: No acute process. Electronically Signed: Federico Coleman DO at 14:45 EST Tel , Service support [phone], CC: Elin Reynolds DO; Esteban Reyes Clinical Biostatistics Director: Signed Esteban Reyes Work Phone: Back Surgery Rebecca Soteira Comment on above: L4-5 2012 fusiona nd rods,screws Back Surgery Warner Herbert Comment on above: L4-5 2012 fusiona nd rods,screws Back Surgery Rebecca Pham Comment on above: L4-5 2012 fusiona nd rods,screws Back Surgery Amairani Bravo Comment on above: L4-5 2012 fusiona nd rods,screws Back Surgery Caterina Slarb Comment on above: L4-5 2012 fusiona nd rods,screws Back Surgery Rebecca Pham Comment on above: L4-5 2012 fusiona nd rods,screws Back Surgery Rebecca Pham Comment on above: L4-5 2012 fusiona nd rods,screws Biopsy of breast Rebecca rosales Biopsy of breast Neida Cros s OPTIMIZATION SPECIALIST Biopsy of breast Neida Cros s OPTIMIZATION SPECIALIST Biopsy of breast Bhavana Grav ius [employer]IVER Biopsy of breast Alayna Murp hy MA Biopsy of breast Savi Dawsonm an OPTIMIZATION SPECIALIST Biopsy of breast Caterina Slar b OPTIMIZATION SPECIALIST Biopsy of breast Caterina Slar b OPTIMIZATION SPECIALIST Biopsy of breast Trav Pryo r OPTIMIZATION SPECIALIST Biopsy of breast OLINDA Ze ell OPTIMIZATION SPECIALIST Breast Biopsy - Right Rebecca Messenger Breast Biopsy - Right Warner Herbert Breast Biopsy - Right Rebecca Messenger Breast Biopsy - Right Amairani Bravo Breast Biopsy - Right Caterina Oneil Breast Biopsy - Right Rebecca Messenger Breast Biopsy - Right Rebecca Messenger Cardiac catheterization Precious Reynolds Work Phone: Colonoscopy Elin Reynolds Work Phone: D&C Rebecca Messenger Comment on above: D&C Warner Herbert Comment on above: D&C Rebecca Messenger Comment on above: D&C Amairani Bravo Comment on above: D&C Caterina Oneil Comment on above: D&C Rebecca Messenger Comment on above: D&C Rebecca Messenger Comment on above: D&C Neida Lopez LPN Comment on above: D&C Neida Lopez LPN Comment on above: D&C Bhavana Gravius [employer] Comment on above: Endoscopic balloon d ilatation of ostium of paranasal sinus Elin Reynolds Work Phone: H/O: hysterectomy History of hysterectomy Dr. Elin Reynolds Work Phone: H/O: surgery History of D&C Dr. Elin Reynolds Work Phone: H/O: tubal ligation History of tubal liga tion Dr. Elin Reynolds Work Phone: heart cath Rebecca Messenger Comment on above: 04/23/08 heart cath Warner Herbert Comment on above: 04/23/08 heart cath Rebecca Messenger Comment on above: 04/23/08 heart cath Amairani Bravo Comment on above: 04/23/08 heart cath Caterina Oneil Comment on above: 04/23/08 heart cath Rebecca Messenger Comment on above: 04/23/08 heart cath Rebecca Messenger Comment on above: 04/23/08 heart cath Neida Lopez LPN Comment on above: 04/23/08 heart cath Neida Lopez LPN Comment on above: 04/23/08 heart cath Bhavana Gravtara [employer] Comment on above: 04/23/08 History of tonsillectomy History of tonsi llectomy Dr. Elin Reynolds Work Phone: Hysterectomy Rebecca Pham Comment on above: 1997 Hysterectomy Warner Herbert Comment on above: 1997 Hysterectomy Rebecca Pham Comment on above: 1997 Hysterectomy Amairani Bravo Comment on above: 1997 Hysterectomy Caterina Slarb Comment on above: 1997 Hysterectomy Rebecca Pham Comment on above: 1997 Hysterectomy Rebecca Pham Comment on above: 1997 Hysterectomy Neida Cross OPTIMIZATION SPECIALIST Comment on above: 1997 Hysterectomy Neida Cross OPTIMIZATION SPECIALIST Comment on above: 1997 Hysterectomy Bhavana Gravius [employer] Comment on above: 1997 Hysterectomy Alayna Kearns MA Hysterectomy Savi Martín OPTIMIZATION SPECIALIST Hysterectomy Caterina Slarb OPTIMIZATION SPECIALIST Hysterectomy Caterina Slarb OPTIMIZATION SPECIALIST Hysterectomy Trav Sherri OPTIMIZATION SPECIALIST Hysterectomy OLINDA Darrel OPTIMIZATION SPECIALIST L5/S1 decompressiona dn TLIF with cage autograft, L4-S1 fusion Rebecca Pham Comment on above: 11/24/16 L5/S1 decompressiona dn TLIF with cage autograft, L4-S1 fusion Warner Herbert Comment on above: 11/24/16 L5/S1 decompressiona dn TLIF with cage autograft, L4-S1 fusion Rebecca Pham Comment on above: 11/24/16 L5/S1 decompressiona dn TLIF with cage autograft, L4-S1 fusion Amairani Bravo Comment on above: 11/24/16 L5/S1 decompressiona dn TLIF with cage autograft, L4-S1 fusion Caterina Slakrystyna Comment on above: 11/24/16 L5/S1 decompressiona dn TLIF with cage autograft, L4-S1 fusion Rebecca Pham Comment on above: 11/24/16 L5/S1 decompressiona dn TLIF with cage autograft, L4-S1 fusion Rebecca Pham Comment on above: 11/24/16 L5/S1 decompressiona dn TLIF with cage autograft, L4-S1 fusion Neida Lopez LPN Comment on above: 11/24/16 L5/S1 decompressiona dn TLIF with cage autograft, L4-S1 fusion Neida Cross OPTIMIZATION SPECIALIST Comment on above: 11/24/16 L5/S1 decompressiona dn TLIF with cage autograft, L4-S1 fusion Bhavana Gravius [employer] Comment on above: 11/24/16 Ligation of fallopian tube Loren Pham Comment on above: 1989 Ligation of fallopian tube Latia Herbert Comment on above: 1989 Ligation of fallopian tube Loren Pham Comment on above: 1989 Ligation of fallopian tube Latia Bravo Comment on above: 1989 Ligation of fallopian tube A ngela Slarb Comment on above: 1989 Ligation of fallopian tube K alem Pham Comment on above: 1989 Ligation of fallopian tube K alem Pham Comment on above: 1989 Ligation of fallopian tube A bryantley Cross OPTIMIZATION SPECIALIST Comment on above: 1989 Ligation of fallopian tube A shley Cross OPTIMIZATION SPECIALIST Comment on above: 1989 Ligation of fallopian tube J lauren Spears [facility] Comment on above: 1989 Ligation of fallopian tube P ariane Kearns MA Ligation of fallopian tube T jolly Resendiz LPN Ligation of fallopian tube K athlealonzo Reynolds Work Phone: Ligation of fallopian tube A ngela Slarb OPTIMIZATION SPECIALIST Ligation of fallopian tube A ngela Slarb OPTIMIZATION SPECIALIST Ligation of fallopian tube D akota Nanuet OPTIMIZATION SPECIALIST Ligation of fallopian tube E JERMAIN Rojo LPN Microscopic examinat ion of cervical Papanicolaou smear Rebecca Pham Comment on above: 2012 Microscopic examinat ion of cervical Papanicolaou smear Warner Herbert Comment on above: 2012 Microscopic examinat ion of cervical Papanicolaou smear Rebecca Pham Comment on above: 2012 Microscopic examinat ion of cervical Papanicolaou smear Amairani Bravo Comment on above: 2012 Microscopic examinat ion of cervical Papanicolaou smear Caterina Slakrystyna Comment on above: 2012 Microscopic examinat ion of cervical Papanicolaou smear Rebecca Pham Comment on above: 2012 Microscopic examinat ion of cervical Papanicolaou smear Rebecca Pham Comment on above: 2012 Microscopic examinat ion of cervical Papanicolaou smear Neida John DEANN Comment on above: 2012 Microscopic examinat ion of cervical Papanicolaou smear Neida Lopez LPN Comment on above: 2012 Microscopic examinat ion of cervical Papanicolaou smear Bhavana Spears [facility] Comment on above: 2012 Microscopic examinat ion of cervical Papanicolaou smear Alayna Kearns MA Microscopic examinat ion of cervical Papanicolaou smear Savi Resendiz LPN Microscopic examinat ion of cervical Papanicolaou smear Caterina Slarb OPTIMIZATION SPECIALIST Microscopic examinat ion of cervical Papanicolaou smear Caterina Slarb OPTIMIZATION SPECIALIST Microscopic examinat ion of cervical Papanicolaou smear Trav Sherri OPTIMIZATION SPECIALIST Microscopic examinat ion of cervical Papanicolaou smear OLINDA Rojo LPN Operation on vertebra Rebecca Pham Comment on above: L4-5 2013 fusiona nd rods,screws Operation on vertebra Neida Cross OPTIMIZATION SPECIALIST Comment on above: L4-5 2012 fusiona nd rods,screws Operation on vertebra Neida Cross OPTIMIZATION SPECIALIST Comment on above: L4-5 2012 fusiona nd rods,screws Operation on vertebra Bhavana Gravius [employer] Comment on above: L4-5 2012 fusiona nd rods,screws Operation on vertebra Alayna Kearns MA Operation on vertebra Savi Martín OPTIMIZATION SPECIALIST Operation on vertebra Caterina Slarb OPTIMIZATION SPECIALIST Operation on vertebra Caterina Slarb OPTIMIZATION SPECIALIST Operation on vertebra Trav Sherri OPTIMIZATION SPECIALIST Operation on vertebra OLINDA Darrel OPTIMIZATION SPECIALIST Ophthalmic examinati on and evaluation Rebecca Pham Comment on above: 2014 Ophthalmic examinati on and evaluation Warner Herbert Comment on above: 2014 Ophthalmic examinati on and evaluation Rebecca Pham Comment on above: 2014 Ophthalmic examinati on and evaluation Amairani Bravo Comment on above: 2014 Ophthalmic examinati on and evaluation Caterina Slarb Comment on above: 2014 Ophthalmic examinati on and evaluation Rebecca Pham Comment on above: 2014 Ophthalmic examinati on and evaluation Rebecca Pham Comment on above: 2014 Ophthalmic examinati on and evaluation Neida Cross OPTIMIZATION SPECIALIST Comment on above: 2014 Ophthalmic examinati on and evaluation Neida Cross OPTIMIZATION SPECIALIST Comment on above: 2014 Ophthalmic examinati on and evaluation Bhavana Gravius [employer] Comment on above: 2014 Ophthalmic examinati on and evaluation Alayna Kearns MA Ophthalmic examinati on and evaluation Savi Martín OPTIMIZATION SPECIALIST Ophthalmic examinati on and evaluation Caterina Slarb OPTIMIZATION SPECIALIST Ophthalmic examinati on and evaluation Caterina Slarb OPTIMIZATION SPECIALIST Ophthalmic examinati on and evaluation Trav [place] OPTIMIZATION SPECIALIST Ophthalmic examinati on and evaluation OLINDA Darrel OPTIMIZATION SPECIALIST Partial hysterectomy Stoney Reynolds Work Phone: Screening colonoscopy Rebecca Pham Comment on above: 2015 Screening colonoscopy Warner Herbert Comment on above: 2015 Screening colonoscopy Rebecca Pham Comment on above: 2015 Screening colonoscopy Amairani Bravo Comment on above: 2015 Screening colonoscopy Caterina Slarb Comment on above: 2015 Screening colonoscopy Rebecca Pham Comment on above: 2015 Screening colonoscopy Rebecca Pham Comment on above: 2016 Screening colonoscopy Neida Cross OPTIMIZATION SPECIALIST Comment on above: 2016 Screening colonoscopy Neida Cross OPTIMIZATION SPECIALIST Comment on above: 2015 Screening colonoscopy Bhavana Gravius [employer] Comment on above: 2015 Screening colonoscopy Alayna Som REGAN Screening colonoscopy Savi Martín OPTIMIZATION SPECIALIST Screening colonoscopy Caterina Slarb OPTIMIZATION SPECIALIST Screening colonoscopy Caterina Slarb OPTIMIZATION SPECIALIST Screening colonoscopy Trav Sherri OPTIMIZATION SPECIALIST Screening colonoscopy OLINDA Darrel OPTIMIZATION SPECIALIST Screening mammography Rebecca Pham Comment on above: 2015 Screening mammography Warner Herbert Comment on above: 2015 Screening mammography Rebecca Pham Comment on above: 2015 Screening mammography Amairani Bravo Comment on above: 2015 Screening mammography Caterina Slarb Comment on above: 2015 Screening mammography Rebecca Pham Comment on above: 2015 Screening mammography Rebecca Pham Comment on above: 2015 Screening mammography Neida Cross OPTIMIZATION SPECIALIST Comment on above: 2015 Screening mammography Neida Cross OPTIMIZATION SPECIALIST Comment on above: 2015 Screening mammography Bhavana Gravius [employer] Comment on above: 2015 Screening mammography Alayna Kearns MA Screening mammography Savi Martín OPTIMIZATION SPECIALIST Screening mammography Caterina Slarb OPTIMIZATION SPECIALIST Screening mammography Caterina Slarb OPTIMIZATION SPECIALIST Screening mammography Trav [place] OPTIMIZATION SPECIALIST Screening mammography OLINDA Darrel OPTIMIZATION SPECIALIST Tonsillectomy Rebecca riddle Comment on above: 1989 Tonsillectomy Warner Herbert Comment on above: 1989 Tonsillectomy Rebecca riddle Comment on above: 1989 Tonsillectomy Amairani Bravo Comment on above: 1989 Tonsillectomy Caterina Slarb Comment on above: 1989 Tonsillectomy Rebecca riddle Comment on above: 1989 Tonsillectomy Rebecca riddle Comment on above: 1989 Tonsillectomy Neida Cross OPTIMIZATION SPECIALIST Comment on above: 1989 Tonsillectomy Neida Cross OPTIMIZATION SPECIALIST Comment on above: 1989 Tonsillectomy Bhavana Gravius [employer] Comment on above: 1989 Tonsillectomy Alayna Kearns MA Tonsillectomy Savi Martín OPTIMIZATION SPECIALIST Tonsillectomy Elinjason Reynolds Work Phone: Tonsillectomy Caterina Slarb OPTIMIZATION SPECIALIST Tonsillectomy Acterina Slarb OPTIMIZATION SPECIALIST Tonsillectomy Trav [place] OPTIMIZATION SPECIALIST Tonsillectomy OLINDA Darrel OPTIMIZATION SPECIALIST Alayna Kearns MA Savi Martín OPTIMIZATION SPECIALIST Caterina Slarb OPTIMIZATION SPECIALIST Caterina Slarb OPTIMIZATION SPECIALIST Trav [place] OPTIMIZATION SPECIALIST OLINDA Darrel OPTIMIZATION SPECIALIST Plan of Treatment Date Care Activity Detail Author Start: 04-26-2024 End: 04-26-2024 [facility] Start: 02-03-2023 End: 02-03-2023 Patient encounter procedure 02/03/2023 2:30 PM EST Office Visit [address] [id number] [place] [address] [address] [place] [address] Ray Jacome Start: 11-06-2022 Procedure Education [facility] Work Phone: Start: 10-17-2022 Influenza vaccination Influenza Vaccine (#1) [facility] Start: 09-10-2022 Procedure Education [facility] Work Phone: Start: 08-20-2022 Procedure Education [facility] Work Phone: Start: 08-20-2022 Provider Instructions for Treatment [facility] Work Phone: Start: 08-20-2022 Urnls dip stick/tablet reagent auto microscopy [facility]; [facility] Work Phone: Start: 04-28-2022 Procedure Education [facility] Work Phone: Start: 04-28-2022 Provider Instructions for Treatment [facility]; [facility] Work Phone: Start: 2022 Pneumococcal Vaccine: 65+ Years (3 - PPSV23 or PCV20) Pneumococcal Vaccine: 65+ Years (3 - PPSV23 or PCV20) [facility] Start: 10-18-2021 [facility] Work Phone: Start: 05-06-2021 Procedure Education [facility] Work Phone: Start: 05-06-2021 Provider Instructions for Treatment [facility] Work Phone: Start: 12-28-2020 Procedure Education [facility] Work Phone: Start: 12-28-2020 Provider Instructions for Treatment [facility]; [facility] Work Phone: Start: 11-01-2020 Procedure Education [facility] Work Phone: Start: 10-24-2020 DTaP/Tdap/Td Vaccines (2 - Td or Tdap) DTaP/Tdap/Td Vaccines (2 - Td or Tdap) [facility] Start: 08-09-2020 Procedure Education [facility] Work Phone: Start: 08-06-2020 Procedure Education [facility] Work Phone: Start: 07-09-2020 Procedure Education [facility]; [facility] Work Phone: Start: 07-09-2020 Provider Instructions for Treatment [facility]; [facility] Work Phone: Start: 06-25-2020 Creatinine other source MICROALB;CREAT RATION, RAND UR (82390) [facility] Work Phone: Start: 06-25-2020 Urinls dip stick/tablet reagnt non-auto micrscpy URINALYSIS W MICROSCOPY (21568) [facility]; [facility] Work Phone: Start: 06-25-2020 Lipoprotein blood arvind numbers & subclasses NMR Profile (69873) [facility]; [facility] Work Phone: Start: 06-25-2020 Antinuclear antibodies sharon SHARON (ANTINUCLEAR ANTIBODY) (21627) [facility]; [facility] Work Phone: Start: 06-25-2020 Blood count complete automated CBC (AUTO) (55162) [facility]; [facility] Work Phone: Start: 06-25-2020 C-reactive protein C-REACTIVE PROTEIN (12409) [facility]; [facility] Work Phone: Start: 06-25-2020 Comprehensive metabolic panel METABOLIC PANEL, COMPREHENSIVE (96898) [facility]; [facility] Work Phone: Start: 06-25-2020 Rheumatoid factor quantitative RHEUMATOID FACTOR-QUANT (00559) [facility]; [facility] Work Phone: Start: 05-10-2021 Sedimentation rate rbc non-automated SED RATE ERYTHROCYTE (49799) [facility]; [facility] Work Phone: Start: 06-25-2020 Assay of thyroid stimulating hormone tsh TSH (83353) [facility]; [facility] Work Phone: Start: 06-25-2020 Cyanocobalamin vitamin b-12 VITAMIN B-12 (CYANOCOBALAMIN) (87126) [facility]; [facility] Work Phone: Start: 06-25-2020 Assay of folic acid serum Folate (01348) [facility]; [facility] Work Phone: Start: 06-25-2020 25 hydroxy includes fractions if performed CALCIFIDIOL (34867) VIT D 25 [facility]; [facility] Work Phone: Start: 06-25-2020 Gonadotropin follicle stimulating hormone FSH AND LH (86225) [facility]; [facility] Work Phone: Start: 07-08-2019 Lipoprotein blood arvind numbers & subclasses [facility] Work Phone: Start: 07-08-2019 Assay of thyroid stimulating hormone tsh [facility]; [facility] Work Phone: Start: 07-08-2019 TSH Qn TSH (36793) [facility] Work Phone: Start: 07-08-2019 Urnls dip stick/tablet reagent auto microscopy [facility] Work Phone: Start: 07-08-2019 Urine albumin quantitative [facility] Work Phone: Start: 07-08-2019 Comprehensive metabolic panel [facility] Work Phone: Start: 07-08-2019 Blood count complete auto&auto difrntl wbc [facility] Work Phone: Start: 07-08-2019 HbA1c (Bld) [Mass fraction] HGB A1C (01440) [facility] Work Phone: Start: 07-08-2019 Hemoglobin glycosylated a1c [facility]; [facility] Work Phone: Start: 07-08-2019 Provider Instructions for Treatment [facility] Work Phone: Start: 03-10-2019 Procedure Education [facility] Work Phone: Start: 03-10-2019 Provider Instructions for Treatment [facility] Work Phone: Start: 10-25-2018 Provider Instructions for Treatment [facility] Work Phone: Start: 10-25-2018 Assay of thyroid stimulating hormone tsh [facility]; [facility] Work Phone: Start: 10-25-2018 TSH Qn TSH (90716) [facility] Work Phone: Start: 10-25-2018 Urnls dip stick/tablet reagent auto microscopy [facility] Work Phone: Start: 10-25-2018 Urine albumin quantitative [facility] Work Phone: Start: 10-25-2018 Comprehensive metabolic panel [facility] Work Phone: Start: 10-25-2018 Blood count complete auto&auto difrntl wbc [facility] Work Phone: Start: 10-25-2018 Lipoprotein blood arvind numbers & subclasses [facility] Work Phone: Start: 09-27-2018 Procedure Education [facility] Work Phone: Start: 09-27-2018 Provider Instructions for Treatment [facility] Work Phone: Start: 06-21-2018 Provider Instructions for Treatment [facility] Work Phone: Start: 06-21-2018 Lipoprotein blood arvind numbers & subclasses NMR Profile (88374) [facility] Work Phone: Start: 06-21-2018 Protein mass conc NMR Profile (11463) [facility] Work Phone: Start: 05-10-2018 Procedure Education [facility] Work Phone: Start: 05-10-2018 Provider Instructions for Treatment [facility] Work Phone: Start: 12-14-2017 Provider Instructions for Treatment [facility] Work Phone: Start: 12-14-2017 Thyrotropin Qn TSH (07452) [facility] Work Phone: Start: 12-14-2017 Urnls dip stick/tablet reagent auto microscopy URINALYSIS, W/ MICRO (56152) [facility] Work Phone: Start: 12-14-2017 Urine albumin quantitative MICROALBUMIN: CREATININE RATIO (60022) AND (89304) [facility] Work Phone: Start: 12-14-2017 Comprehensive metabolic panel METABOLIC PANEL, COMPREHENSIVE (27010) [facility] Work Phone: Start: 12-14-2017 Protein mass conc LIPOPROTEIN, BLD, BY NMR (25340) [facility] Work Phone: Start: 12-14-2017 Blood count complete auto&auto difrntl wbc CBC W/AUTO DIFF WBC (37761) [facility] Work Phone: Start: 10-26-2017 Comprehensive [facility] panel [facility] Work Phone: Start: 10-26-2017 Blood count manual cell count each [facility] Work Phone: Start: 06-23-2017 Procedure Education [facility] Work Phone: Start: 06-08-2017 Procedure Education [facility] Work Phone: Start: 06-08-2017 Provider Instructions for Treatment [facility] Work Phone: Start: 04-16-2017 Provider Instructions for Treatment [facility] Work Phone: Start: 2017 Hepatitis B Vaccines (1 of 3 - Risk 3-dose series) Hepatitis B Vaccines (1 of 3 - Risk 3-dose series) [facility] Start: 01-15-2017 Procedure Education [facility] Work Phone: Start: 12-16-2016 End: 12-16-2016 Appointment Appointment [facility] angel [facility]izar[facility] Work Phone: Start: 12-15-2016 Provider Instructions for Treatment [facility] Work Phone: Start: 12-15-2016 Assay of thyroid stimulating hormone tsh [facility]; [facility] Work Phone: Start: 12-15-2016 Thyrotropin Qn TSH (97102) [facility] Work Phone: Start: 12-15-2016 Urnls dip stick/tablet reagent auto microscopy [facility] Work Phone: Start: 12-15-2016 Urine albumin quantitative [facility] Work Phone: Start: 12-15-2016 Comprehensive metabolic panel [facility] Work Phone: Start: 12-15-2016 Lipid panel [facility] Work Phone: Start: 12-15-2016 Blood count complete auto&auto difrntl wbc [facility] Work Phone: Start: 12-02-2016 End: 12-02-2016 Appointment Appointment [facility] [place] Work Phone: Start: 11-14-2016 End: 11-14-2016 Appointment [facility] [place] Work Phone: Start: 11-06-2016 End: 11-06-2016 [facility] [place] Work Phone: Start: 11-06-2016 End: 11-06-2016 Follow up Appt 1 week Follow up Appt 1 week [facility] [place] Work Phone: Start: 11-06-2016 End: 11-06-2016 [facility] [place] Work Phone: Start: 11-06-2016 End: 11-06-2016 Follow up Appt 1 week Follow up Appt 1 week [facility] [place] Work Phone: Start: 09-22-2016 End: 09-22-2016 Appointment Appointment [facility] [place] Work Phone: Start: 09-15-2016 End: 09-18-2016 Bacteria identified Cx Nom (Sput) *Sputum Culture [facility] [place] Work Phone: Start: 09-15-2016 End: 09-18-2016 [facility] [place] Work Phone: Start: 09-15-2016 End: 09-18-2016 Follow up Appt 1 week Follow up Appt 1 week [facility] [place] Work Phone: Start: 09-15-2016 End: 09-18-2016 Bacteria sputum culture *Sputum Culture [facility] [place] Work Phone: Start: 09-15-2016 End: 09-18-2016 [facility] [place] Work Phone: Start: 09-15-2016 End: 09-18-2016 Follow up Appt 1 week Follow up Appt 1 week [facility] [place] Work Phone: Start: 09-12-2016 Procedure Education [facility] Work Phone: Start: 09-08-2016 Procedure Education [facility] Work Phone: Start: 09-08-2016 Provider Instructions for Treatment [facility] Work Phone: Start: 09-01-2016 Procedure Education [facility] Work Phone: Start: 09-01-2016 Provider Instructions for Treatment [facility] Work Phone: Start: 08-25-2016 Procedure Education [facility] Work Phone: Start: 08-25-2016 Provider Instructions for Treatment [facility] Work Phone: Start: 07-21-2016 Procedure Education [facility] Work Phone: Start: 07-21-2016 Provider Instructions for Treatment [facility] Work Phone: Start: 06-03-2016 End: 06-06-2016 *[email or web address] Allergens,Zone8 [id number] *[email or web address] Allergens,Zone8 [id number] [facility] Work Phone: Start: 06-03-2016 End: 06-03-2016 DMB DMB [facility] [place] Work Phone: Start: 06-03-2016 End: 06-03-2016 Follow Up Appt 6 months Follow Up Appt 6 months [facility] Work Phone: Start: 06-03-2016 End: 06-04-2016 IgE mass conc (S) *KENYON Immunoglobulin E (IgE) [facility] Work Phone: Start: 06-03-2016 End: 06-06-2016 *[email or web address] Allergens,Zone8 [id number] *[email or web address] Allergens,Zone8 [id number] [facility] Work Phone: Start: 06-03-2016 End: 06-03-2016 DMB DMB [facility] Work Phone: Start: 06-03-2016 End: 06-03-2016 Follow Up Appt 6 months Follow Up Appt 6 months [facility] Work Phone: Start: 06-03-2016 End: 06-04-2016 Globulin *KENYON Immunoglobulin E (IgE) [facility] Work Phone: Start: 06-03-2016 End: 06-04-2016 IgE mass conc (S) *KENYON Immunoglobulin E (IgE) [facility] Work Phone: Start: 05-27-2016 End: 05-27-2016 Radex spine lumbscrl compl w/bending views min 6 X-Ray, Spine, Lumbar, complete with bending views [facility] Work Phone: Start: 05-27-2016 End: 05-27-2016 X-ray exam l-s spine bending X-Ray, Spine, Lumbar, complete with bending views [facility] Work Phone: Start: 04-15-2016 Provider Instructions for Treatment [facility] Work Phone: Start: 03-26-2016 End: 03-26-2016 Other Referral Other Referral [facility] [employer] Work Phone: Start: 03-26-2016 End: 03-26-2016 Other Referral Other Referral [facility] [place] Work Phone: Start: 03-13-2016 Procedure Education [facility] Work Phone: Start: 03-13-2016 Provider Instructions for Treatment [facility] Work Phone: Start: 03-13-2016 Urnls dip stick/tablet reagent auto microscopy [facility] Work Phone: Start: 03-13-2016 Urine albumin quantitative [facility] Work Phone: Start: 02-14-2016 End: 02-14-2016 DMB DMB [facility] [place] Work Phone: Start: 02-14-2016 End: 02-14-2016 Follow Up Appt 4 months Follow Up Appt 4 months [facility] [place] Work Phone: Start: 02-14-2016 End: 02-14-2016 DMB DMB [facility] [place] Work Phone: Start: 02-14-2016 End: 02-14-2016 Follow Up Appt 4 months Follow Up Appt 4 months [facility] [place] Work Phone: Start: 02-07-2016 Procedure Education [facility] Work Phone: Start: 02-07-2016 Provider Instructions for Treatment [facility] Work Phone: Start: 01-31-2016 Provider Instructions for Treatment [facility] Work Phone: Start: 01-31-2016 Bacteria identified Respiratory culture Nom (Sput) Sputum Culture (42023) [facility] Work Phone: Start: 01-31-2016 Cul bact xcpt urine blood/stool aerobic isol [facility] Work Phone: Start: 01-23-2016 Patient Education [facility] Work Phone: Start: 01-23-2016 Procedure Education [facility] Work Phone: Start: 01-23-2016 Provider Instructions for Treatment [facility] Work Phone: Start: 01-23-2016 Iaadiadoo streptococcus group a [facility] Work Phone: Start: 01-23-2016 S. pyogenes Ag IA Ql (Unsp spec) Rapid Strep Test, Office (11053) [facility] Work Phone: Start: 01-08-2016 Provider Instructions for Treatment [facility] Work Phone: Start: 09-17-2012 Zoster Vaccines (2 of 3) Zoster Vaccines (2 of 3) [facility] Start: 08-20-2012 MMR Vaccines (1 of 1 - Standard series) MMR Vaccines (1 of 1 - Standard series) [facility] Start: 1997 Screening for malignant neoplasm of breast Mammogram [facility] Start: 1978 Screening for malignant neoplasm of cervix [facility] Start: 1976 Hepatitis A Vaccines (1 of 2 - Risk 2-dose series) Hepatitis A Vaccines (1 of 2 - Risk 2-dose series) [facility] Start: 1975 Hepatitis C screening Hepatitis C Screening [facility] Start: 1957 COVID-19 Vaccine (#1) COVID-19 Vaccine (#1) [facility] Start: 1957 Annual wellness visit Medicare Initial Physical (IPPE) [facility] Start: 1957 Lipid panel Lipid Panel [facility] Start: 1957 Screening for malignant neoplasm of colon [facility] Start: 1957 Screening for osteoporosis Bone Density Scan [facility] Start: 1957 Yearly Adult Physical Yearly Adult Physical [facility] Bacteria identified in Urine by Culture Urine Culture [facility] Work Phone: Patient referral [facility] Work Phone: Urine culture [facility] Work Phone: [facility] Work Phone: [facility] Work Phone: [facility] Work Phone: [facility] Work Phone[facility] Work Phone[facility] Work Phone: [facility] Work Phone[facility] Work Phone: [facility] Work Phone: [facility] Work Phone: [facility] Work Phone: [facility] Work Phone: [facility] Work Phone: [facility] Work Phone[facility] Work Phone: [facility] Work Phone: [facility] Work Phone: [facility] Work Phone[facility] Work Phone: [facility] Work Phone: [facility] Work Phone: [facility] Work Phone: [facility] Work Phone: [facility] Work Phone: [facility] Work Phone: [facility] Work Phone: [facility] Work Phone: [facility] Work Phone: [facility] Work Phone: [facility] Work Phone: Immunizations Immunization Date Immunization Notes Care Provider Therese jessica 12-17-2021 Seasonal, quadrivalent, recombinant, injectable influenza vaccine, preservative free Elin Reynolds Work Phone: RP-Tweukxuvtayfhjio[facility]Gy [facility] Work Phone: 12-17-2021 influenza virus vaccine, unspecified formulation [facility] Work Phone: 12-06-2020 influenza, seasonal, injectable Elin Reynolds DO Work Phone: [facility] Work Phone: 12-06-2020 Seasonal, quadrivalent, recombinant, injectable influenza vaccine, preservative free Elin Reynolds Work Phone: OQ-Rcdjsaqzopafkikb-Uv [facility] Work Phone: 11-11-2019 influenza, injectable,quadrivalen t, preservative free, pediatric Dr. Elin Reynolds Work Phone: [facility] 11-11-2019 influenza, seasonal, injectable, preservative free Elin Reynolds Work Phone: ZN-Yctikggogrcpxjdl-Ps [facility] Work Phone: 12-25-2018 influenza, injectabl e, quadrivalent, preservative free Elin Reynolds Work Phone: JI-Pqgccwbmszadadoa-Ds [facility] Work Phone: 12-25-2018 influenza, seasonal, injectable Elin Reynolds [facility] Work Phone: 02-20-2016 pneumococcal conjuga te vaccine, 13 valent Elin Reynolds Work Phone: JH-Yayvmfbtuvjbaiqk-So [facility] Work Phone: 02-17-2016 pneumococcal conjuga te vaccine, 7 valent Elin Reynolds [facility] Work Phone: Comment on above: Done at pharmacy 12-04-2015 influenza, injectabl e, quadrivalent, contains preservative Elin Reynolds Work Phone: OT-Gdmatxonjlchznic-Vo [facility] Work Phone: 11-16-2014 influenza, seasonal, injectable Elin Reynolds Work Phone: UK-Rxonqlvhtgycqtey-Wd [facility] Work Phone: 10-12-2014 pneumococcal conjuga te vaccine, 13 valent Elin Reynolds Work Phone: MY-Eambzohuvcpanwvh-Qp [facility] Work Phone: 12-14-2013 influenza, seasonal, injectable Elin Reynolds Work Phone: DZ-Zdxasejjffzykwkk-Av [facility] Work Phone: Payers Date Payer Category Payer Self-pay [id number] 2022 Medicare [employer] [id number] 2022-Present [address] [place] [address] [id number] 2016 Medicare [id number] 1955 Unknown [id number] 1955 Unknown [id number] 1957 Unknown [id number] 1957 Unknown [id number] 1957 Unknown [id number] [id number] Unknown Unknown [id number] Unknown [id number] Unknown [id number] Unknown [id number] Unknown [id number] Unknown [id number] Unknown [id number] Unknown [id number] Unknown [id number] Social History Date Type Detail Facility Alcohol Use: Never smoker [facility] Work Phone: Exercise History: Exercises regu larly. Moderate. [facility] Work Phone: [facility] Situation[facility]: No Caffeine Use [facility] Work Phone: Tobacco use: Never smoker. [facility] Work Phone: Alcohol Use: Alcohol Use: [facility] Work Phone: Exercise History: Exercise History: [facility]; [facility] Work Phone: [facility] Work Phone: Tobacco use: Tobacco use: [facility] Work Phone: Start: 02-06-2020 End: 12-04-2022 Tobacco smoking status NHIS Unknown if ever smoked [facility] Start: 06-21-2020 None [facility] Start: 06-21-2020 Homeless [facility] Start: 06-21-2020 Non-smoker [facility] Start: 1955 Sex Assigned At Female W [facility] Start: 1955 Sex Assigned At Not on file [facility] Work Phone: Gender identity Not on file [facility] Work Phone: Start: 01-24-2023 End: 02-03-2023 Exposure to SARS-CoV-2 (event) Not sure [facility] Start: 04-26-2024 End: 05-03-2024 Tobacco smoking status NHIS Never smoked tobacco (finding) [facility] Start: 04-26-2024 Sex Female (finding) [facility] Procedure Code Equipment Code Equipment Origin al Text Equipment Identifier Dates Pen Lutz 29G X 12MM Miscellaneous 1 (one) needle weekly for 90 days Quantity: 1 {Box} Refills: 4 Ordered: 09-Jul-2020 Bhavana Spears CMA Start : 09-Jul-2020 Active Comments: pen needles for ozempic pen use once weekly Start: 07-09-2020 Comment on above: pen needles for ozem pic pen use once weekly Pen Lutz 29G X 12MM Miscellaneous 1 (one) needle weekly for 90 days Quantity: 1 {Box} Refills: 4 Ordered: 09-Jul-2020 Bhavana Spears CMA Start : 09-Jul-2020 Active Comments: pen needles for ozempic pen use once weekly Start: 07-09-2020 Comment on above: pen needles for ozem pic pen use once weekly Pen Lutz 29G X 12MM Miscellaneous 1 (one) needle weekly for 90 days Quantity: 1 {Box} Refills: 4 Ordered: 09-Jul-2020 Gravtara MOISE Bhavana Start : 09-Jul-2020 Active Comments: pen needles for ozempic pen use once weekly Start: 07-09-2020 Comment on above: pen needles for ozem pic pen use once weekly Pen Lutz 29G X 12MM Miscellaneous 1 (one) needle weekly for 90 days Quantity: 1 {Box} Refills: 4 Ordered: 09-Jul-2020 Tory MOISE, Bhavana Start : 09-Jul-2020 Active Comments: pen needles for ozempic pen use once weekly Start: 07-09-2020 Comment on above: pen needles for ozem pic pen use once weekly Pen Lutz 29G X 12MM Miscellaneous 1 (one) needle weekly for 90 days Quantity: 1 {Box} Refills: 4 Ordered: 09-Jul-2020 Tory MOISE Bhavana Start : 09-Jul-2020 Active Comments: pen needles for ozempic pen use once weekly Start: 07-09-2020 Comment on above: pen needles for ozem pic pen use once weekly Pen Lutz 29G X 12MM Miscellaneous 1 (one) needle weekly for 90 days Quantity: 1 {Box} Refills: 4 Ordered: 09-Jul-2020 Tory MOISE Bhavana Start : 09-Jul-2020 Active Comments: pen needles for ozempic pen use once weekly Start: 07-09-2020 Comment on above: pen needles for ozem pic pen use once weekly Pen Lutz 29G X 12MM Miscellaneous 1 (one) needle weekly for 90 days Quantity: 1 {Box} Refills: 4 Ordered: 09-Jul-2020 Thiago Spears CMAin Start : 09-Jul-2020 Active Comments: pen needles for ozempic pen use once weekly Start: 07-09-2020 Comment on above: pen needles for ozem pic pen use once weekly Pen Lutz 29G X 12MM Miscellaneous 1 (one) needle weekly for 90 days Quantity: 1 {Box} Refills: 4 Ordered: 09-Jul-2020 Thiago Spears CMAin Start : 09-Jul-2020 Active Comments: pen needles for ozempic pen use once weekly Start: 07-09-2020 Comment on above: pen needles for ozem pic pen use once weekly Pen Lutz 29G X 12MM Miscellaneous 1 (one) needle weekly for 90 days Quantity: 1 {Box} Refills: 4 Ordered: 09-Jul-2020 Tory MOISE, Bhavana Start : 09-Jul-2020 Active Comments: pen needles for ozempic pen use once weekly Start: 07-09-2020 Comment on above: pen needles for ozem pic pen use once weekly Pen Lutz 29G X 12MM Miscellaneous 1 (one) needle weekly for 90 days Quantity: 1 {Box} Refills: 4 Ordered: 09-Jul-2020 Bhavana Spears CMA Start : 09-Jul-2020 Active Comments: pen needles for ozempic pen use once weekly Start: 07-09-2020 Comment on above: pen needles for ozem pic pen use once weekly Pen Lutz 29G X 12MM Miscellaneous 1 (one) needle weekly for 90 days Quantity: 1 {Box} Refills: 4 Ordered: 09-Jul-2020 Slarb OPTIMIZATION SPECIALIST, Caterina Start : 09-Jul-2020 Active Comments: pen needles for ozempic pen use once weekly Start: 07-09-2020 Comment on above: pen needles for ozem pic pen use once weekly Pen Lutz 29G X 12MM Miscellaneous 1 (one) needle weekly for 90 days Quantity: 1 {Box} Refills: 4 Ordered: 09-Jul-2020 Slarb OPTIMIZATION SPECIALIST, Caterina Start : 09-Jul-2020 Active Comments: pen needles for ozempic pen use once weekly Start: 07-09-2020 Comment on above: pen needles for ozem pic pen use once weekly Pen Lutz 29G X 12MM Miscellaneous 1 (one) needle weekly for 90 days Quantity: 1 {Box} Refills: 4 Ordered: 09-Jul-2020 Slarb OPTIMIZATION SPECIALIST, Caterina Start : 09-Jul-2020 Active Comments: pen needles for ozempic pen use once weekly Start: 07-09-2020 Comment on above: pen needles for ozem pic pen use once weekly Abby Palafox e [place] [id number]_[facility] Start: 11-24-2016 Comment on above: Description: Convert ed from [facility]. Please see archived information for full log information. Paco, Prelordosed 75mm W/Line Case [id number] Start: 11-24-2016 Comment on above: Description: Convert ed from [facility]. Please see archived information for full log information. Functional Status Date Assessment Result Facility 06-29-2020 LP-IR Score 86 [facility] Work Phone: Comment on above: INSULIN RESISTANCE M ARKER <--Insulin Sensitive Insulin Resistant--> Percentile in Reference PopulationInsulin Resistance ScoreLP-IR Score Low 25th 50th 75th High <27 27 45 63 >63LP-IR Score is inaccurate if patient is non-fasting. .The LP-IR score is a laboratory developed index that has beenassociated with insulin resistance and diabetes risk and should beused as one component of a physician's clinical assessment. Test(s) 331078-ABH-L ; 305243-QCW-R; 123822-Mlujbxzzfgojk; 058091-Ihjexefegpg, Total; 483420-OAN-D (Total); 253922-Psioc LDL-P; 622528-WFU Size; 163955-QA-DZ Scorewas developed and its performance characteristics determinedby [employer]. It has not been cleared or approved by the Foodand Drug Administration.PATIENT WAS FASTINGPERFORMED BY: [employer] [address] [id number] BY: Aesica PharmaceuticalsHudson County Meadowview HospitalMmvzue4957 [facility] [id number] 10-12-2018 LP-IR Score 74 [facility] Work Phone: Comment on above: INSULIN RESISTANCE M ARKER <--Insulin Sensitive Insulin Resistant--> Percentile in Reference PopulationInsulin Resistance ScoreLP-IR Score Low 25th 50th 75th High <27 27 45 63 >63LP-IR Score is inaccurate if patient is non-fasting. .The LP-IR score is a laboratory developed index that has beenassociated with insulin resistance and diabetes risk and should beused as one component of a physician's clinical assessment. TheLP-IR score listed above has not been cleared by the [place] Food andDrug Administration. PATIENT WAS FASTINGP ERFORMED BY: [employer] [address] [id number]; ov 11/0106-10-2018 LP-IR Score 71 [facility] Work Phone: Comment on above: INSULIN RESISTANCE M ARKER <--Insulin Sensitive Insulin Resistant--> Percentile in Reference PopulationInsulin Resistance ScoreLP-IR Score Low 25th 50th 75th High <27 27 45 63 >63LP-IR Score is inaccurate if patient is non-fasting. .The LP-IR score is a laboratory developed index that has beenassociated with insulin resistance and diabetes risk and should beused as one component of a physician's clinical assessment. TheLP-IR score listed above has not been cleared by the [place] Food andDrug Administration. PATIENT WAS FASTINGP ERFORMED BY: BN [facility] [id number] [facility] [id number] BY: CB [facility] [id number] [facility] [id number] Clinical Notes 02-03-2023 to 05-03-2024 Note Date & Type Note Facility 05-03-2024 Evaluation note Diagnosis Onset Date Resolution Epigastric pain acute April 2:12pm [place] [employer] Work Phone: [phone] 667-940503-11-2025 Discharge summary [facility] Medical Records Department [address] [place] [address] Emergency Department Summary 04/26/24 MR#: [id number] Acct: [id number] Name: LETY SPENCER Rep #:[id number] : 1955 69 From: Bruno Monzon PCP: Dr. Elin Reynolds DO Status:RE G ER Location: ED HPI HPI - GI History of Present Illness Chief Complaint: Abd Pain Informant: patient Narrative Narrative: Worsening upper abdominal pain since 4 PM. Nausea vomiting x 2. Having chills. No history of similar. No abdominal surgeries. Ate turkey sandwich at noon and there is no cheese or [place]. No history ofsimilar. Denies any similar pain. Lower lumbar surgery in the past hypertension and irritable bowelsyndrome. Diabetes with hyperlipidemia. severe asthma history. No anticoagulation medications. Prior similar symptoms: No PFSH PFSH Medical History GERD (gastroesophageal reflux disease) Osteoarthritis of left hip Osteoarthritis of left knee Left knee pain Left hip pain COPD (chronic obstructive pulmonary disease) Atherosclerosis of coronary artery bypass graft of [place] heart with angina pectoris Excessive sweating History of TIA (transient ischemic attack) (2006) Obesity Type 2 diabetes mellitus COVID-19 virus detected (10/04/20) Essential hypertension Candidiasis of mouth Seasonal allergic rhinitis Exercise-induced bronchospasm Hyperlipidemia 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 Back pain, sacroiliac Asthma Home Medications ?Medication ?Instructions ?Recorded ?Last Taken ?Type hydrochlorothiazide 25 mg tablet 12.5 mg PO DAILY diur etic/water 11/05/15 10/05/20 History pill simvastatin 40 mg tablet 40 mg PO QHS cholesterol 10/04/20 History lisinopril 10 mg tablet 10 mg PO QHS blood pressure 07/09/17 10/04/20 History albuterol sulfate 2.5 mg/3 mL 2.5 mg (3 mL) inhalation Q4H PRN 04/21/19 Unknown Rx (0.083 %) solution for nebulization Sob &/Or Wheezing #180 vials nebulizers #1 ea 04/02/20 Unknown Rx metformin 500 mg tablet 500 mg PO BID 08/07/2010/05 History Handicap Placcard #1 ea 02/04/22 Unknown Rx Fasenra 30 mg/mL subcutaneous 30 mg subcut Q8W #1 mL 1 03/16/22 Unknown Rx syringe (benralizumab) albuterol sulfate 90 mcg/actuation 2 puff inhalation Q 4H PRN 02/18/23 Unknown Rx aerosol inhaler (Ventolin HFA) shortness of breath or wheezing #1 device montelukast 10 mg tablet 10 mg PO QPM #90 tabs Unknown Rx amitriptyline 25 mg tablet 25 mg PO QHS esophageal spa sm #90 03/01/24 Unknown Rx tabs cetirizine 10 mg capsule 10 mg PO QHS 04/26/24 Unknow n History fluconazole 150 mg tablet 150 mg PO QWEEK PRN yeast #2 tabs 04/26/24 Unknown Rx ondansetron 4 mg disintegrating 4 mg PO Q8H PRN PRN Na usea #10 tabs 04/26/24 Unknown Rx tablet pantoprazole 40 mg tablet,delayed 40 mg PO DAILY 04/26 Unknown History release sucralfate 1 gram tablet (Carafate) 1 g PO Q6H #60 tab s 04/26/24 Unknown Rx Allergy/AdvReac Type Severity Reaction Status Date / Time buprenorphine (From Butrans) Allergy Mild Hives Verified 04/26/24 18:56 terbinafine Allergy Mild Rash Verified 04/26/24 18:56 codeine Allergy Unknown Verified 04/26/24 18:56 nortriptyline AdvReac Mild Upset Verified 04/26/24 18:56 Stomach omeprazole AdvReac Mild Diarrhea Verified 04/26/24 18:56 Penicillins AdvReac Mild yeast Verified 04/26/24 18:56 infection naproxen (From Naprosyn) AdvReac gi upset Verified 04/26/24 18:56 nortriptyline HCl (From AdvReac Upset Verified 04/26/24 18:56 Pamelor) Stomach Family History Mother Anxiety Hypertension kidney/renal disease High cholesterol Brother Heart disease Cancer Bladder Cancer CAD (coronary artery disease) Father Heart disease Myocardial infarction, Onset Age: 43 CAD (coronary artery disease) Brother CAD (coronary artery disease) Surgical History History of left heart catheterization (05/27/07) History of back surgery History of tubal ligation History of tonsillectomy History of hysterectomy History of D&C History of right breast biopsy Social History household members: spouse Smoking Status: Never smoker second hand exposure: No alcohol intake: never substance use type: does not use caffeine: No what type of physical activity do you participate in: none ROS ROS ED Constitutional Constitutional ED: Reports chills; Denies fever(s) or sweats ENT ENT ED: Denies sore throat Cardiovascular Cardiovascular: Denies chest pain, leg edema, palpitations or racing heartbeat Respiratory/Chest Respiratory/Chest: Denies cough, dyspnea or dyspnea on exertion Gastrointestinal Gastrointestinal: Reports abdominal pain, nausea and vomiting; Denies diarrhea Genitourinary Genitourinary ED: Denies dysuria, hematuria or urinary frequency Musculoskeletal Musculoskeletal: Denies back pain, extremity pain or neck pain Integumentary Denies rash or wounds Neurologic Neurologic: Denies headache(s), paresthesias or weakness EXAM Physical Exam Const Vital Signs: 04/26/24 18:56 04/26/24 20:00 04/26/24 22:00 Temperature 98 F Temperature Source Temporal Pulse Rate 105 H 98 85 Respiratory Rate 18 18 18 Blood Pressure 141/88 H 133/57 H 125/48 H Blood Pressure Mean 105 82 73 Pulse Ox 100 97 94 Oxygen Delivery Method Room Air Room Air Room Air Positive well nourished and well developed Constitutional Narrative: Uncomfortable, nontoxic General Appearance ED: well developed HEENT Reports moist mucous membranes normocephalic and atraumatic Eyes General Eye ED: Yes normal appearance of both eyes Neck full ROM Chest Wall Chest: Negative for tenderness Resp normal respiratory effort and normal air movement Effort and Inspection: symmetric chest movement; Negative for respiratory distress Cardio regular rate, regular rhythm and no murmurs Peripheral Pulses: pulses 2+ throughout GI normal to inspection, nondistended, normoactive bowel sounds GI Narrative: Pain epigastrium and mild right upper quadrant. Negative McBurney's. Palpation: Negative for guarding or rebound tenderness present Extremity normal to inspection General Extremety ED: Negative for edema or tenderness General Extremity: Negative for edema Neuro oriented x3 and no sensory deficits noted Sensorium / Orientation: awake and alert Skin no rashes or lesions noted and no wounds MDM MDM MDM Narrative Medical decision making narrative: Interventions / MDM: Differential diagnosis: Gastritis, UTI Diagnosis considered but do not suspect: Cholecystitis however ultrasound normalno significant right upper quadrant pain. My EKG interpretation: N/A Imaging independently reviewed and interpreted by myself: Gallbladder ultrasoundnormal gallbladder structures. Fatty liver noted. External documents reviewed: N/A Test considered but not ordered:N/A ED course: Worsening epigastric pain mild pain right upper quadrant last meal atnoon. No history ofsimilar. Abdominal labs ordered. Morphine Zofran fluids. Right upper quadrant ultrasound for further evaluation. 2224: Ultrasound gallbladder normal. Fatty liver noted. White count 16.9. Normal lipase normal liver enzymes normal renal function. Clinically feeling better states intermittent waves of pain in epigastrium. Will treat with GI cocktail. Will reevaluate. 2300: Symptoms proved with GI cocktail. She is on pantoprazole states follows Dr. Tamayo's office recently had her pantoprazole decreased to 20 mg. She stillhas 40 mg at home which she will up. I will add Carafate. She will monitor forblack or bloody stools. Her urine was significant for findings of infection. Urine culture sent. She currently asymptomatic however per record she had similar labs past October and November with infection. She has antibiotics at home with cephalexin for her UTI from her PCP. She will take this twice a day for next 7 days. Will write for Diflucan for possible yeast infections occur with her antibiotics. She will follow with Dr. Tamayo and her PCP. All questions were answered. Re-evaluation: stable Disposition discussed with patient/family/significant other: Patient Case discussed with consulting clinician: N/A This note was generated with [id number] dictation software. It may contain incorrectwords, spelling, and punctuation that were not noted in checking the note beforesigning. Lab Data Attestation: I reviewed the patient's lab results. Labs: Laboratory Results - last 24 hr 04/26/24 04/26/24 04/26/24 19:15 20:39 21:40 WBC 16.9 H RBC 5.62 H Hgb 16.0 H Hct 48.2 H MCV 85.8 MCH 28.5 MCHC 33.2 RDW Std Deviation 43.1 RDW Coeff of [place] 13.7 Plt Count 404 MPV 9.5 Immature Gran % (Auto) 0.500 Neut % (Auto) 73.0 H Lymph % (Auto) 22.1 [place] % (Auto) 4.2 Eos % (Auto) 0.0 Baso % (Auto) 0.2 Absolute Neuts (auto) 12.3 H Absolute Lymphs (auto) 3.73 Nucleated RBC % 0 Sodium Cancelled 138 Potassium Cancelled 3.8 Chloride Cancelled 100 Carbon Dioxide Cancelled 23.3 Anion Gap Cancelled 14 BUN Cancelled 17 Creatinine Cancelled 0.98 Estim Creat Clear Calc Cancelled 58.62 Est GFR (MDRD) Non-Af Cancelled 63 BUN/Creatinine Ratio Cancelled 17.7 Glucose Cancelled 159 H Calcium Cancelled 9.6 Total Bilirubin Cancelled 0.38 AST Cancelled 21 ALT Cancelled 15 Alkaline Phosphatase Cancelled 129 H Total Protein Cancelled 7.5 Albumin Cancelled 4.0 Globulin Cancelled 3.5 Albumin/Globulin Ratio Cancelled 1.1 Lipase Cancelled 19 Urine Color Yellow Urine Clarity Cloudy Urine pH 6.0 Ur Specific [place] 1.020 Urine Protein 15 H Urine Glucose (UA) Normal Urine Ketones 15 H Urine Occult Blood 10 H Urine Nitrite Positive H Urine Bilirubin Negative Urine Urobilinogen Normal Ur Leukocyte Esterase 100 H Urine RBC 0-5 SEEN Urine WBC 25-50 SEEN Ur Squamous Epith Cells 0-5 SEEN Urine Bacteria 4+ Urine Mucus 0 SEEN Radiography Diagnostic Testing: Clinical Impression(s) from Imaging Studies Gallbladder Ultrasound 04/26/24 20:36 IMPRESSION: Hepatic steatosis. Trace perihepatic ascites. Reading Location: [facility] Discharge Plan Triage Chief Complaint: Abd Pain ED Provider: Bruno Rae Dx/Rx/DC Orders Clinical Impression: Gastritis, Vomiting, Acute UTI Instructions: Urinary Tract Infections in Women, ED Gastritis (Adult) Prescriptions: New sucralfate [Carafate] 1 gram tablet 1 g PO Q6H Qty: 60 0RF ondansetron 4 mg tablet,disintegrating 4 mg PO Q8H PRN PRN (Reason: Nausea) Qty: 10 0RF fluconazole 150 mg tablet 150 mg PO QWEEK PRN (Reason: yeast) Qty: 2 0RF No Action albuterol sulfate 2.5 mg /3 mL (0.083 %) solution for nebulization 2.5 mg inhalation Q4H PRN (Reason: Sob &/Or Wheezing) Qty: 180 6RF metformin 500 mg tablet 500 mg PO BID (DME) Handicap Placcard See Rx Instructions .ROUTE .MEDSUPPLY Qty: 1 0RF Rx Instructions: Length of Time: 99 months albuterol sulfate [Ventolin HFA] 90 mcg/actuation HFA aerosol inhaler 2 puff INHALATION Q4H PRN (Reason: shortness of breath or wheezing) Qty: 1 6RF montelukast 10 mg tablet 10 mg PO QPM Qty: 90 3RF amitriptyline 25 mg tablet 25 mg PO QHS Qty: 90 1RF simvastatin 40 MG tablet 40 mg PO QHS hydrochlorothiazide 25 MG tablet 12.5 mg PO DAILY lisinopril 10 MG tablet 10 mg PO QHS pantoprazole 40 mg tablet,delayed release (DR/EC) 40 mg PO DAILY cetirizine 10 mg capsule 10 mg PO QHS (DME) nebulizers [facility] [place] See Rx Instructions .ROUTE .MEDSUPPLY Qty: 1 0RF Rx Instructions: As directed Fasenra 30 mg/mL syringe 30 mg SC Q8W Qty: 1 7RF Primary Care Provider: Elin Reynolds Referrals: Elin Reynolds DO [Primary Care Provider] - 1-2 Weeks Friend,Karl, DO [Med Staff - Active Staff] - 1-2 Weeks Activity Restrictions/Additional Instructions: Gallbladder ultrasound with normal gallbladder structures. Fatty liver noted. Normal pancreas and liver enzymes. Go back up with your pantoprazole 40 mg. Take Carafate as prescribed. Monitor for black or bloody stools. Follow-up with Dr. Tamayo. Urine notes infection culture sent. Take your home antibiotic twice a day for the next 7 days. Use Diflucan as needed. Print Language: Norwegian Disposition Disposition: Home, Self Care What to do if you have Problems For any increased pain, shortness of breath, bleeding, nausea or vomiting, chestpain, or any unexpected problems, contact your Primary Care Provider. Call [facility] ([phone]) or report tothe closest Emergency Room. Call 911 if necessary. 04/26/24 2300 Cosigner Signature (if applicable): CC: Dr. Elin Reynolds DO ~ Signed [facility]03-11-2025 Radiology Diagnostic study note [facility] [place] Imaging Services [address] [place] [address] Gallbladder MR#: [id number] Acct: [id number] Name: LETY SPENCER Rep #: [id number] : 1955 F 69 From: Alfred Georges DO PCP: Dr. Elin Reynolds DO Status: RE G ER Study:Gallbladder Date of Exam: 04/26/24 Exam# [id number] Ordering Dr: Bruno Rae DO PROCEDURE: Right upper quadrant ultrasound REASON FOR EXAM: PAIN COMPARISON: None FINDINGS: Liver: Diffuse increased hepatic echogenicity most consistent with steatosis. Gallbladder: No stones, sludge, wall thickening or tenderness. Common bile duct: Normal measuring 5 mm. Pancreas: Tiny cyst measuring 8 mm. Trace perihepatic ascites. US/Gallbladder IMPRESSION: Hepatic steatosis. Trace perihepatic ascites. Reading Location: [facility] CC: Dr. Elin Reynolds DO; Dr. Bruno Rae DO ~ Clinical Biostatistics Director: Signed [facility]03-11-2025 Discharge summary Author Bruno Rae [facility] Note Date/Time April 26, 2024 11: 00pm [facility] Medical Records Department [address] [place] [address] Emergency Department Summary 04/26/24 MR#: [id number] Acct: [id number] Name: LETY SPENCER Rep #:[id number] : 1955 69 From: Bruno Monzon PCP: Dr. Elin Reynolds, DO Status:RE G ER Location: ED HPI HPI - GI History of Present Illness Chief Complaint: Abd Pain Informant: patient Narrative Narrative: Worsening upper abdominal pain since 4 PM. Nausea vomiting x 2. Having chills. No history of similar. No abdominal surgeries. Ate turkey sandwich at noon and there is no cheese or [place]. No history of similar. Denies any similar pain. Lower lumbar surgery in the past hypertension and irritable bowel syndrome. Diabetes with hyperlipidemia. severe asthma history. No anticoagulation medications. Prior similar symptoms: No PFSH PFSH Medical History GERD (gastroesophageal reflux disease) Osteoarthritis of left hip Osteoarthritis of left knee Left knee pain Left hip pain COPD (chronic obstructive pulmonary disease) Atherosclerosis of coronary artery bypass graft of [place] heart with angina pectoris Excessive sweating History of TIA (transient ischemic attack) (2006) Obesity Type 2 diabetes mellitus COVID-19 virus detected (10/04/20) Essential hypertension Candidiasis of mouth Seasonal allergic rhinitis Exercise-induced bronchospasm Hyperlipidemia 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 Back pain, sacroiliac Asthma Home Medications ?Medication ?Instructions ?Recorded ?Last Taken ?Type hydrochlorothiazide 25 mg tablet 12.5 mg PO DAILY diur etic/water 11/05/15 10/05/20 History pill simvastatin 40 mg tablet 40 mg PO QHS cholesterol 10/04/20 History lisinopril 10 mg tablet 10 mg PO QHS blood pressure 07/09/17 10/04/20 History albuterol sulfate 2.5 mg/3 mL 2.5 mg (3 mL) inhalation Q4H PRN 04/21/19 Unknown Rx (0.083 %) solution for nebulization Sob &/Or Wheezing #180 vials nebulizers #1 ea 04/02/20 Unknown Rx metformin 500 mg tablet 500 mg PO BID 08/07/2010/05 History Handicap Placcard #1 ea 02/04/22 Unknown Rx Fasenra 30 mg/mL subcutaneous 30 mg subcut Q8W #1 mL 1 03/16/22 Unknown Rx syringe (benralizumab) albuterol sulfate 90 mcg/actuation 2 puff inhalation Q 4H PRN 02/18/23 Unknown Rx aerosol inhaler (Ventolin HFA) shortness of breath or wheezing #1 device montelukast 10 mg tablet 10 mg PO QPM #90 tabs Unknown Rx amitriptyline 25 mg tablet 25 mg PO QHS esophageal spa sm #90 03/01/24 Unknown Rx tabs cetirizine 10 mg capsule 10 mg PO QHS 04/26/24 Unknow n History fluconazole 150 mg tablet 150 mg PO QWEEK PRN yeast #2 tabs 04/26/24 Unknown Rx ondansetron 4 mg disintegrating 4 mg PO Q8H PRN PRN Na usea #10 tabs 04/26/24 Unknown Rx tablet pantoprazole 40 mg tablet,delayed 40 mg PO DAILY 04/26 Unknown History release sucralfate 1 gram tablet (Carafate) 1 g PO Q6H #60 tab s 04/26/24 Unknown Rx Allergy/AdvReac Type Severity Reaction Status Date / Time buprenorphine (From Butrans) Allergy Mild Hives Verified 04/26/24 18:56 terbinafine Allergy Mild Rash Verified 04/26/24 18:56 codeine Allergy Unknown Verified 04/26/24 18:56 nortriptyline AdvReac Mild Upset Verified 04/26/24 18:56 Stomach omeprazole AdvReac Mild Diarrhea Verified 04/26/24 18:56 Penicillins AdvReac Mild yeast Verified 04/26/24 18:56 infection naproxen (From Naprosyn) AdvReac gi upset Verified 04/26/24 18:56 nortriptyline HCl (From AdvReac Upset Verified 04/26/24 18:56 Pamelor) Stomach Family History Mother Anxiety Hypertension kidney/renal disease High cholesterol Brother Heart disease Cancer Bladder Cancer CAD (coronary artery disease) Father Heart disease Myocardial infarction, Onset Age: 43 CAD (coronary artery disease) Brother CAD (coronary artery disease) Surgical History History of left heart catheterization (05/27/07) History of back surgery History of tubal ligation History of tonsillectomy History of hysterectomy History of D&C History of right breast biopsy Social History household members: spouse Smoking Status: Never smoker second hand exposure: No alcohol intake: never substance use type: does not use caffeine: No what type of physical activity do you participate in: none ROS ROS ED Constitutional Constitutional ED: Reports chills; Denies fever(s) or sweats ENT ENT ED: Denies sore throat Cardiovascular Cardiovascular: Denies chest pain, leg edema, palpitations or racing heartbeat Respiratory/Chest Respiratory/Chest: Denies cough, dyspnea or dyspnea on exertion Gastrointestinal Gastrointestinal: Reports abdominal pain, nausea and vomiting; Denies diarrhea Genitourinary Genitourinary ED: Denies dysuria, hematuria or urinary frequency Musculoskeletal Musculoskeletal: Denies back pain, extremity pain or neck pain Integumentary Denies rash or wounds Neurologic Neurologic: Denies headache(s), paresthesias or weakness EXAM Physical Exam Const Vital Signs: 04/26/24 18:56 04/26/24 20:00 04/26/24 22:00 Temperature 98 F Temperature Source Temporal Pulse Rate 105 H 98 85 Respiratory Rate 18 18 18 Blood Pressure 141/88 H 133/57 H 125/48 H Blood Pressure Mean 105 82 73 Pulse Ox 100 97 94 Oxygen Delivery Method Room Air Room Air Room Air Positive well nourished and well developed Constitutional Narrative: Uncomfortable, nontoxic General Appearance ED: well developed HEENT Reports moist mucous membranes normocephalic and atraumatic Eyes General Eye ED: Yes normal appearance of both eyes Neck full ROM Chest Wall Chest: Negative for tenderness Resp normal respiratory effort and normal air movement Effort and Inspection: symmetric chest movement; Negative for respiratory distress Cardio regular rate, regular rhythm and no murmurs Peripheral Pulses: pulses 2+ throughout GI normal to inspection, nondistended, normoactive bowel sounds GI Narrative: Pain epigastrium and mild right upper quadrant. Negative McBurney's. Palpation: Negative for guarding or rebound tenderness present Extremity normal to inspection General Extremety ED: Negative for edema or tenderness General Extremity: Negative for edema Neuro oriented x3 and no sensory deficits noted Sensorium / Orientation: awake and alert Skin no rashes or lesions noted and no wounds MDM MDM MDM Narrative Medical decision making narrative: Interventions / MDM: Differential diagnosis: Gastritis, UTI Diagnosis considered but do not suspect: Cholecystitis however ultrasound normalno significant right upper quadrant pain. My EKG interpretation: N/A Imaging independently reviewed and interpreted by myself: Gallbladder ultrasoundnormal gallbladder structures. Fatty liver noted. External documents reviewed: N/A Test considered but not ordered:N/A ED course: Worsening epigastric pain mild pain right upper quadrant last meal atnoon. No history of similar. Abdominal labs ordered. Morphine Zofran fluids. Right upper quadrant ultrasound for further evaluation. 2224: Ultrasound gallbladder normal. Fatty liver noted. White count 16.9. Normal lipase normal liver enzymes normal renal function. Clinically feeling better states intermittent waves of pain in epigastrium. Will treat with GI cocktail. Will reevaluate. 2299: Symptoms proved with GI cocktail. She is on pantoprazole states follows Dr. Tamayo's office recently had her pantoprazole decreased to 20 mg. She stillhas 40 mg at home which she will up. I will add Carafate. She will monitor forblack or bloody stools. Her urine was significant for findings of infection. Urine culture sent. She currently asymptomatic however per record she had similar labs past October and November with infection. She has antibiotics at home with cephalexin for her UTI from her PCP. She will take this twice a day for next 7 days. Will write for Diflucan for possible yeast infections occur with her antibiotics. She will follow with Dr. Tamayo and her PCP. All questions were answered. Re-evaluation: stable Disposition discussed with patient/family/significant other: Patient Case discussed with consulting clinician: N/A This note was generated with [id number] dictation software. It may contain incorrectwords, spelling, and punctuation that were not noted in checking the note beforesigning. Lab Data Attestation: I reviewed the patient's lab results. Labs: Laboratory Results - last 24 hr 04/26/24 04/26/24 04/26/24 19:15 20:39 21:40 WBC 16.9 H RBC 5.62 H Hgb 16.0 H Hct 48.2 H MCV 85.8 MCH 28.5 MCHC 33.2 RDW Std Deviation 43.1 RDW Coeff of [place] 13.7 Plt Count 404 MPV 9.5 Immature Gran % (Auto) 0.500 Neut % (Auto) 73.0 H Lymph % (Auto) 22.1 [place] % (Auto) 4.2 Eos % (Auto) 0.0 Baso % (Auto) 0.2 Absolute Neuts (auto) 12.3 H Absolute Lymphs (auto) 3.73 Nucleated RBC % 0 Sodium Cancelled 138 Potassium Cancelled 3.8 Chloride Cancelled 100 Carbon Dioxide Cancelled 23.3 Anion Gap Cancelled 14 BUN Cancelled 17 Creatinine Cancelled 0.98 Estim Creat Clear Calc Cancelled 58.62 Est GFR (MDRD) Non-Af Cancelled 63 BUN/Creatinine Ratio Cancelled 17.7 Glucose Cancelled 159 H Calcium Cancelled 9.6 Total Bilirubin Cancelled 0.38 AST Cancelled 21 ALT Cancelled 15 Alkaline Phosphatase Cancelled 129 H Total Protein Cancelled 7.5 Albumin Cancelled 4.0 Globulin Cancelled 3.5 Albumin/Globulin Ratio Cancelled 1.1 Lipase Cancelled 19 Urine Color Yellow Urine Clarity Cloudy Urine pH 6.0 Ur Specific [place] 1.020 Urine Protein 15 H Urine Glucose (UA) Normal Urine Ketones 15 H Urine Occult Blood 10 H Urine Nitrite Positive H Urine Bilirubin Negative Urine Urobilinogen Normal Ur Leukocyte Esterase 100 H Urine RBC 0-5 SEEN Urine WBC 25-50 SEEN Ur Squamous Epith Cells 0-5 SEEN Urine Bacteria 4+ Urine Mucus 0 SEEN Radiography Diagnostic Testing: Clinical Impression(s) from Imaging Studies Gallbladder Ultrasound 04/26/24 20:36 IMPRESSION: Hepatic steatosis. Trace perihepatic ascites. Reading Location: [facility] Discharge Plan Triage Chief Complaint: Abd Pain ED Provider: Bruno Rae Dx/Rx/DC Orders Clinical Impression: Gastritis, Vomiting, Acute UTI Instructions: Urinary Tract Infections in Women, ED Gastritis (Adult) Prescriptions: New sucralfate [Carafate] 1 gram tablet 1 g PO Q6H Qty: 60 0RF ondansetron 4 mg tablet,disintegrating 4 mg PO Q8H PRN PRN (Reason: Nausea) Qty: 10 0RF fluconazole 150 mg tablet 150 mg PO QWEEK PRN (Reason: yeast) Qty: 2 0RF No Action albuterol sulfate 2.5 mg /3 mL (0.083 %) solution for nebulization 2.5 mg inhalation Q4H PRN (Reason: Sob &/Or Wheezing) Qty: 180 6RF metformin 500 mg tablet 500 mg PO BID (DME) Handicap Placcard See Rx Instructions .ROUTE .MEDSUPPLY Qty: 1 0RF Rx Instructions: Length of Time: 99 months albuterol sulfate [Ventolin HFA] 90 mcg/actuation HFA aerosol inhaler 2 puff INHALATION Q4H PRN (Reason: shortness of breath or wheezing) Qty: 1 6RF montelukast 10 mg tablet 10 mg PO QPM Qty: 90 3RF amitriptyline 25 mg tablet 25 mg PO QHS Qty: 90 1RF simvastatin 40 MG tablet 40 mg PO QHS hydrochlorothiazide 25 MG tablet 12.5 mg PO DAILY lisinopril 10 MG tablet 10 mg PO QHS pantoprazole 40 mg tablet,delayed release (DR/EC) 40 mg PO DAILY cetirizine 10 mg capsule 10 mg PO QHS (DME) nebulizers Misc See Rx Instructions .ROUTE .MEDSUPPLY Qty: 1 0RF Rx Instructions: As directed Fasenra 30 mg/mL syringe 30 mg SC Q8W Qty: 1 7RF Primary Care Provider: Elin Reynolds Referrals: Elin Reynolds DO [Primary Care Provider] - 1-2 Weeks Karl Tamayo DO [Med Staff - Active Staff] - 1-2 Weeks Activity Restrictions/Additional Instructions: Gallbladder ultrasound with normal gallbladder structures. Fatty liver noted. Normal pancreas and liver enzymes. Go back up with your pantoprazole 40 mg. Take Carafate as prescribed. Monitor for black or bloody stools. Follow-up with Dr. Tamayo. Urine notes infection culture sent. Take your home antibiotic twice a day for the next 7 days. Use Diflucan as needed. Print Language: Norwegian Disposition Disposition: Home, Self Care What to do if you have Problems For any increased pain, shortness of breath, bleeding, nausea or vomiting, chestpain, or any unexpected problems, contact your Primary Care Provider. Call [facility] ([phone]) or report to the closest Emergency Room. Call 911 if necessary. 04/26/24 2300 <Electronically signed by Bruno Monzon> Cosigner Signature (if applicable): CC: Dr. Elin Reynolds DO ~ Signed [facility] Work Phone: 1(918) 783-208912-11-2024 Evaluation note* Diagnosis Onset Date Resolution Status Admit Date Fecal incontinence acute Decemb er 2023 9:56am GERD (gastroesophageal reflu x disease) acute January 26, 024 9:56am Irritable bowel syndrome wit h diarrhea acute January 26 024 9:56am Fecal incontinence acute Januar y 2024 9:51am GERD (gastroesophageal reflu x disease) acute March 01 9:51am STEVEN (nonalcoholic steatohepatitis) acute March 01, 025 9:51am [facility] Work Phone: 1(400) 557-401212-19-2023 History of Present illness Narrative* Vicente Hamilton MD - 02/03/2023 2:30 PM EST HPI:Lety Spencer is a 67-year-old woman, with past medical history significant for remote lumbardecompression and fusion. She comes in with more recent history of back pain a little bit of radiation to her left buttock and medial thigh. She has not had any steroid injections recently. She had an MRI done at an outside facility which she wants to review today. ROS: Reviewed on EMR and patient intake sheet. PMH/SH: Reviewed on EMR and patient intake sheet. Exam: Physical Exam Constitutional: Well appearing; no acute distress Eyes: pupils are equal and round Psych: normal affect Respiratory: non-labored breathing Cardiovascular: regular rate and rhythm GI: non-distended abdomen Musculoskeletal: no pain with range of motion of the hips bilaterally Neurologic: [4]/5 strength in the lower extremities bilaterally]; [negative] straight leg raise; noclonus; negative babinski Radiology: MRI was personally reviewed. It demonstrates fusion from L4-S1. She has some mild junctional narrowing at L3-4. Otherwise, no significant spinal stenosis disc herniations or other abnormality. Diagnosis: Lumbar radiculopathy Assessment and Plan: 67-year-old woman, with some radicular-like symptoms in the lower extremities in the setting of prior remote lumbar laminectomy fusion. MRI does not demonstrate any significant stenosis or neural compression which would require surgical intervention. As result, I have recommended that she get some steroid injections. She can follow-up as necessary. She was appreciative for the second opinion. The patient was in agreement with the plan. At the end of the visit today, the patient felt that all questions had been answered satisfactorily. The patient was pleased with the visit and very appreciative for the care rendered. Thank you very much for the kind referral. It is a privilege, and a pleasure, to partner with you in the care of your patients. I would be delighted to assist you with any further consultations as needed. Vicente Hamilton MD Chief of Spine Surgery, [facility] Director of Spine Service, [facility] Mulcher Operator, Department of Orthopaedics [facility] [employer] [address] [place] [address] P: [phone] This note was dictated with voice recognition software. It has not been proofread for grammatical errors, typographical mistakes or other semantic inconsistencies. documented in this encounterOhio[facility] Work Phone: Evaluation note* Diagnosis Onset Date Resolution Status [id number] acute Essential hypertension chron ic Hyperlipidemia chronic Asthma chronic Seasonal allergic rhinitis c [facility] Work Phone: Evaluation note* Diagnosis Onset Date Resolution Status Asthma chronic Seasonal allergic rhinitis c [facility] Work Phone: Evaluation note* Diagnosis Onset Date Resolution Status Asthma chronic [facility] Work Phone: Evaluation noteNo assessment information available [facility] Work Phone: Evaluation note* Diagnosis Onset Date Resolution Status Asthma chronic Obesity chronic Seasonal allergic rhinitis c [facility] Work Phone: Evaluation note* Diagnosis Lumbar radiculopathy- Primary Thoracic or lumbosacral neuritis or radiculitis, unspecified documented in this encounter [facility] Work Phone: History of Present illness Narrative* LETY SPENCER is a 67 year female with PMH of asthma, COPD, CAD, DM2, diverticulitis, fatty liver, GERD, IBS, HTN, kidney stones, TIA who presents today for assessment of pancreas cyst. On most recent RUQ ultrasound was 6 mm x 5 mm x 5 mm and reportedly stable. She reports that she underwent EUS 2006 w/ Augustin Mcgarry and sampled and found to be benign. She denies any hx of pancreatitis, family hxof pancreas cancer, jaundice. * She is currently undergoing evaluation for suspected fatty liver with elevated LFTs with Dr. Lentz has follow up arranged. She does state that her DM has been poorly controlled of late. [id number] Work Phone: Hospital Discharge instructions Additional Instructions Gallbladder ultrasound with normal gallbladder structures. Fatty liver noted. Normal pancreas and liver enzymes. Go back up with your pantoprazole 40 mg. Take Carafate as prescribed. Monitor for black or bloody stools. Follow-up with Dr. Tamayo. Urine notes infection culture sent. Take your home antibiotic twice a day for the next 7 days. Use Diflucan as needed.[facility] Work Phone: Instructions* Name Dates Details How to access health informa tion online Indication:Non-smoker Start:08-Jul-2019 Instruction Type:Patient Education How to access health informa [employer] online - Detail Indication:Non-smoker Start:08-Jul-2019 Instruction Type:Patient Education Patient Instructions Indication:Non-smoker Start:08-Jul-2019 Instruction Type:Provider Instructions for Treatment How to access health informa tion online Indication:Non-smoker Start:28-Apr-2019 Instruction Type:Patient Education How to access health informa tion online - Detail Indication:Non-smoker Start:28-Apr-2019 Instruction Type:Patient Education Patient Instructions Indication:Non-smoker Start:28-Apr-2019 Instruction Type:Provider Instructions for Treatment How to access health informa tion online Indication:Abnormal glucose tolerance test Start:10-Mar-2019 Instruction Type:Patient Education How to access health informa tion online - Detail Indication:Abnormal glucose tolerance test Start:10-Mar-2019 Instruction Type:Patient Education Patient Instructions Indication:Abnormal glucose tolerance test Start:10-Mar-2019 Instruction Type:Provider Instructions for Treatment How to access health informa tion online Indication:Abnormal glucose tolerance test Start:25-Oct-2018 Instruction Type:Patient Education How to access health informa tion online - Detail Indication:Abnormal glucose tolerance test Start:25-Oct-2018 Instruction Type:Patient Education Patient Instructions Indication:Abnormal glucose tolerance test Start:25-Oct-2018 Instruction Type:Provider Instructions for Treatment How to access health informa tion online - Detail Indication:Bronchitis Start:27-Sep-2018 Instruction Type:Patient Education Patient Instructions Indication:BMI 36.0-36.9,adult Start:27-Sep-2018 Instruction Type:Provider Instructions for Treatment How to access health informa tion online Indication:Non-smoker Start:21-Jun-2018 Instruction Type:Patient Education How to access health informa tion online - Detail Indication:Non-smoker Start:21-Jun-2018 Instruction Type:Patient Education Patient Instructions Indication:Non-smoker Start:21-Jun-2018 Instruction Type:Provider Instructions for Treatment How to access health informa tion online Indication:Non-smoker Start:10-May-2018 Instruction Type:Patient Education How to access health informa tion online - Detail Indication:Non-smoker Start:10-May-2018 Instruction Type:Patient Education Patient Instructions Indication:BMI 35.0-35.9,adult Start:10-May-2018 Instruction Type:Provider Instructions for Treatment How to access health informa tion online Indication:Non-smoker Start:14-Dec-2017 Instruction Type:Patient Education How to access health informa tion online - Detail Indication:Non-smoker Start:14-Dec-2017 Instruction Type:Patient Education Patient Instructions Indication:Non-smoker Start:14-Dec-2017 Instruction Type:Provider Instructions for Treatment How to access health informa tion online Indication:Cough Start:23-Jun-2017 Instruction Type:Patient Education How to access health informa tion online - Detail Indication:Cough Start:23-Jun-2017 Instruction Type:Patient Education Patient Instructions Indication:Cough Start:23-Jun-2017 Instruction Type:Provider Instructions for Treatment How to access health informa tion online Indication:Hyperlipidemia, mild Start:08-Jun-2017 Instruction Type:Patient Education How to access health informa tion online - Detail Indication:Hyperlipidemia, mild Start:08-Jun-2017 Instruction Type:Patient Education Patient Instructions Indication:Hyperlipidemia, mild Start:08-Jun-2017 Instruction Type:Provider Instructions for Treatment How to access health informa tion online Indication:Non-smoker Start:28-Apr-2017 Instruction Type:Patient Education How to access health informa tion online - Detail Indication:Non-smoker Start:28-Apr-2017 Instruction Type:Patient Education Patient Instructions Indication:Non-smoker Start:28-Apr-2017 Instruction Type:Provider Instructions for Treatment How to access health informa tion online Indication:BMI 34.0-34.9,adult Start:16-Apr-2017 Instruction Type:Patient Education How to access health informa tion online - Detail Indication:BMI 34.0-34.9,adult Start:16-Apr-2017 Instruction Type:Patient Education Patient Instructions Indication:BMI 34.0-34.9,adult Start:16-Apr-2017 Instruction Type:Provider Instructions for Treatment How to access health informa tion online Indication:Non-smoker Start:15-Jan-2017 Instruction Type:Patient Education How to access health informa tion online - Detail Indication:Non-smoker Start:15-Jan-2017 Instruction Type:Patient Education Patient Instructions Indication:Non-smoker Start:15-Jan-2017 Instruction Type:Provider Instructions for Treatment How to access health informa tion online Indication:BMI 35.0-35.9,adult Start:15-Dec-2016 Instruction Type:Patient Education How to access health informa tion online - Detail Indication:BMI 35.0-35.9,adult Start:15-Dec-2016 Instruction Type:Patient Education Patient Instructions Indication:BMI 35.0-35.9,adult Start:15-Dec-2016 Instruction Type:Provider Instructions for Treatment How to access health informa tion online Indication:Chronic asthma, unspecified asthma severity, uncomplicated Start:12-Sep-2016 Instruction Type:Patient Education How to access health informa tion online - Detail Indication:Chronic asthma, unspecified asthma severity, uncomplicated Start:12-Sep-2016 Instruction Type:Patient Education Patient Instructions Indication:Chronic asthma, unspecified asthma severity, uncomplicated Start:12-Sep-2016 Instruction Type:Provider Instructions for Treatment How to access health informa tion online Indication:Acute asthma flare Start:08-Sep-2016 Instruction Type:Patient Education How to access health informa tion online - Detail Indication:Acute asthma flare Start:08-Sep-2016 Instruction Type:Patient Education Patient Instructions Indication:Acute asthma flare Start:08-Sep-2016 Instruction Type:Provider Instructions for Treatment How to access health informa tion online Indication:Acute asthma flare Start:01-Sep-2016 Instruction Type:Patient Education How to access health informa tion online - Detail Indication:Acute asthma flare Start:01-Sep-2016 Instruction Type:Patient Education Patient Instructions Indication:Acute asthma flare Start:01-Sep-2016 Instruction Type:Provider Instructions for Treatment How to access health informa tion online Indication:Non-smoker Start:25-Aug-2016 Instruction Type:Patient Education How to access health informa tion online - Detail Indication:Non-smoker Start:25-Aug-2016 Instruction Type:Patient Education Patient Instructions Indication:Non-smoker Start:25-Aug-2016 Instruction Type:Provider Instructions for Treatment How to access health informa tion online Indication:BMI 34.0-34.9,adult Start:21-Jul-2016 Instruction Type:Patient Education How to access health informa tion online - Detail Indication:BMI 34.0-34.9,adult Start:21-Jul-2016 Instruction Type:Patient Education Patient Instructions Indication:BMI 34.0-34.9,adult Start:21-Jul-2016 Instruction Type:Provider Instructions for Treatment How to access health informa tion online Indication:Non-smoker Start:15-Apr-2016 Instruction Type:Patient Education How to access health informa tion online - Detail Indication:Non-smoker Start:15-Apr-2016 Instruction Type:Patient Education Patient Instructions Indication:Non-smoker Start:15-Apr-2016 Instruction Type:Provider Instructions for Treatment How to access health informa tion online Indication:Non-smoker Start:13-Mar-2016 Instruction Type:Patient Education How to access health informa tion online - Detail Indication:Non-smoker Start:13-Mar-2016 Instruction Type:Patient Education Patient Instructions Indication:Non-smoker Start:13-Mar-2016 Instruction Type:Provider Instructions for Treatment How to access health informa tion online Indication:Hypertension Start:07-Feb-2016 Instruction Type:Patient Education How to access health informa tion online - Detail Indication:Hypertension Start:07-Feb-2016 Instruction Type:Patient Education Patient Instructions Indication:Hypertension Start:07-Feb-2016 Instruction Type:Provider Instructions for Treatment How to access health informa tion online Indication:Sore throat Start:23-Jan-2016 Instruction Type:Patient Education How to access health informa tion online - Detail Indication:Sore throat Start:23-Jan-2016 Instruction Type:Patient Education Patient Instructions Indication:Sore throat Start:23-Jan-2016 Instruction Type:Provider Instructions for Treatment How to access health informa tion online Indication:Non-smoker Start:08-Jan-2016 Instruction Type:Patient Education How to access health informa tion online - Detail Indication:Non-smoker Start:08-Jan-2016 Instruction Type:Patient Education Patient Instructions Indication:Non-smoker Start:08-Jan-2016 Instruction Type:Provider Instructions for Treatment [facility]; [facility] Work Phone: Instructions* Name Dates Details How to Access Health Informa tion Online using Patient Portal and [employer] Apps Indication:Non-smoker Start:09-Jul-2020 Instruction Type:Patient Education Patient Instructions Indication:Non-smoker Start:09-Jul-2020 Instruction Type:Provider Instructions for Treatment How to access health informa tion online Indication:Non-smoker Start:08-Jul-2019 Instruction Type:Patient Education How to access health informa tion online - Detail Indication:Non-smoker Start:08-Jul-2019 Instruction Type:Patient Education Patient Instructions Indication:Non-smoker Start:08-Jul-2019 Instruction Type:Provider Instructions for Treatment How to access health informa tion online Indication:Non-smoker Start:28-Apr-2019 Instruction Type:Patient Education How to access health informa tion online - Detail Indication:Non-smoker Start:28-Apr-2019 Instruction Type:Patient Education Patient Instructions Indication:Non-smoker Start:28-Apr-2019 Instruction Type:Provider Instructions for Treatment How to access health informa tion online Indication:Abnormal glucose tolerance test Start:10-Mar-2019 Instruction Type:Patient Education How to access health informa tion online - Detail Indication:Abnormal glucose tolerance test Start:10-Mar-2019 Instruction Type:Patient Education Patient Instructions Indication:Abnormal glucose tolerance test Start:10-Mar-2019 Instruction Type:Provider Instructions for Treatment How to access health informa tion online Indication:Abnormal glucose tolerance test Start:25-Oct-2018 Instruction Type:Patient Education How to access health informa tion online - Detail Indication:Abnormal glucose tolerance test Start:25-Oct-2018 Instruction Type:Patient Education Patient Instructions Indication:Abnormal glucose tolerance test Start:25-Oct-2018 Instruction Type:Provider Instructions for Treatment How to access health informa tion online - Detail Indication:Bronchitis Start:27-Sep-2018 Instruction Type:Patient Education Patient Instructions Indication:BMI 36.0-36.9,adult Start:27-Sep-2018 Instruction Type:Provider Instructions for Treatment How to access health informa tion online Indication:Non-smoker Start:21-Jun-2018 Instruction Type:Patient Education How to access health informa tion online - Detail Indication:Non-smoker Start:21-Jun-2018 Instruction Type:Patient Education Patient Instructions Indication:Non-smoker Start:21-Jun-2018 Instruction Type:Provider Instructions for Treatment How to access health informa tion online Indication:Non-smoker Start:10-May-2018 Instruction Type:Patient Education How to access health informa tion online - Detail Indication:Non-smoker Start:10-May-2018 Instruction Type:Patient Education Patient Instructions Indication:BMI 35.0-35.9,adult Start:10-May-2018 Instruction Type:Provider Instructions for Treatment How to access health informa tion online Indication:Non-smoker Start:14-Dec-2017 Instruction Type:Patient Education How to access health informa tion online - Detail Indication:Non-smoker Start:14-Dec-2017 Instruction Type:Patient Education Patient Instructions Indication:Non-smoker Start:14-Dec-2017 Instruction Type:Provider Instructions for Treatment How to access health informa tion online Indication:Cough Start:23-Jun-2017 Instruction Type:Patient Education How to access health informa tion online - Detail Indication:Cough Start:23-Jun-2017 Instruction Type:Patient Education Patient Instructions Indication:Cough Start:23-Jun-2017 Instruction Type:Provider Instructions for Treatment How to access health informa tion online Indication:Hyperlipidemia, mild Start:08-Jun-2017 Instruction Type:Patient Education How to access health informa tion online - Detail Indication:Hyperlipidemia, mild Start:08-Jun-2017 Instruction Type:Patient Education Patient Instructions Indication:Hyperlipidemia, mild Start:08-Jun-2017 Instruction Type:Provider Instructions for Treatment How to access health informa tion online Indication:Non-smoker Start:28-Apr-2017 Instruction Type:Patient Education How to access health informa tion online - Detail Indication:Non-smoker Start:28-Apr-2017 Instruction Type:Patient Education Patient Instructions Indication:Non-smoker Start:28-Apr-2017 Instruction Type:Provider Instructions for Treatment How to access health informa tion online Indication:BMI 34.0-34.9,adult Start:16-Apr-2017 Instruction Type:Patient Education How to access health informa tion online - Detail Indication:BMI 34.0-34.9,adult Start:16-Apr-2017 Instruction Type:Patient Education Patient Instructions Indication:BMI 34.0-34.9,adult Start:16-Apr-2017 Instruction Type:Provider Instructions for Treatment How to access health informa tion online Indication:Non-smoker Start:15-Jan-2017 Instruction Type:Patient Education How to access health informa tion online - Detail Indication:Non-smoker Start:15-Jan-2017 Instruction Type:Patient Education Patient Instructions Indication:Non-smoker Start:15-Jan-2017 Instruction Type:Provider Instructions for Treatment How to access health informa tion online Indication:BMI 35.0-35.9,adult Start:15-Dec-2016 Instruction Type:Patient Education How to access health informa tion online - Detail Indication:BMI 35.0-35.9,adult Start:15-Dec-2016 Instruction Type:Patient Education Patient Instructions Indication:BMI 35.0-35.9,adult Start:15-Dec-2016 Instruction Type:Provider Instructions for Treatment How to access health informa tion online Indication:Chronic asthma, unspecified asthma severity, uncomplicated Start:12-Sep-2016 Instruction Type:Patient Education How to access health informa tion online - Detail Indication:Chronic asthma, unspecified asthma severity, uncomplicated Start:12-Sep-2016 Instruction Type:Patient Education Patient Instructions Indication:Chronic asthma, unspecified asthma severity, uncomplicated Start:12-Sep-2016 Instruction Type:Provider Instructions for Treatment How to access health informa tion online Indication:Acute asthma flare Start:08-Sep-2016 Instruction Type:Patient Education How to access health informa tion online - Detail Indication:Acute asthma flare Start:08-Sep-2016 Instruction Type:Patient Education Patient Instructions Indication:Acute asthma flare Start:08-Sep-2016 Instruction Type:Provider Instructions for Treatment How to access health informa tion online Indication:Acute asthma flare Start:01-Sep-2016 Instruction Type:Patient Education How to access health informa tion online - Detail Indication:Acute asthma flare Start:01-Sep-2016 Instruction Type:Patient Education Patient Instructions Indication:Acute asthma flare Start:01-Sep-2016 Instruction Type:Provider Instructions for Treatment How to access health informa tion online Indication:Non-smoker Start:25-Aug-2016 Instruction Type:Patient Education How to access health informa tion online - Detail Indication:Non-smoker Start:25-Aug-2016 Instruction Type:Patient Education Patient Instructions Indication:Non-smoker Start:25-Aug-2016 Instruction Type:Provider Instructions for Treatment How to access health informa tion online Indication:BMI 34.0-34.9,adult Start:21-Jul-2016 Instruction Type:Patient Education How to access health informa tion online - Detail Indication:BMI 34.0-34.9,adult Start:21-Jul-2016 Instruction Type:Patient Education Patient Instructions Indication:BMI 34.0-34.9,adult Start:21-Jul-2016 Instruction Type:Provider Instructions for Treatment How to access health informa tion online Indication:Non-smoker Start:15-Apr-2016 Instruction Type:Patient Education How to access health informa tion online - Detail Indication:Non-smoker Start:15-Apr-2016 Instruction Type:Patient Education Patient Instructions Indication:Non-smoker Start:15-Apr-2016 Instruction Type:Provider Instructions for Treatment How to access health informa tion online Indication:Non-smoker Start:13-Mar-2016 Instruction Type:Patient Education How to access health informa tion online - Detail Indication:Non-smoker Start:13-Mar-2016 Instruction Type:Patient Education Patient Instructions Indication:Non-smoker Start:13-Mar-2016 Instruction Type:Provider Instructions for Treatment How to access health informa tion online Indication:Hypertension Start:07-Feb-2016 Instruction Type:Patient Education How to access health informa tion online - Detail Indication:Hypertension Start:07-Feb-2016 Instruction Type:Patient Education Patient Instructions Indication:Hypertension Start:07-Feb-2016 Instruction Type:Provider Instructions for Treatment How to access health informa tion online Indication:Sore throat Start:23-Jan-2016 Instruction Type:Patient Education How to access health informa tion online - Detail Indication:Sore throat Start:23-Jan-2016 Instruction Type:Patient Education Patient Instructions Indication:Sore throat Start:23-Jan-2016 Instruction Type:Provider Instructions for Treatment How to access health informa tion online Indication:Non-smoker Start:08-Jan-2016 Instruction Type:Patient Education How to access health informa tion online - Detail Indication:Non-smoker Start:08-Jan-2016 Instruction Type:Patient Education Patient Instructions Indication:Non-smoker Start:08-Jan-2016 Instruction Type:Provider Instructions for Treatment [facility]; [facility] Work Phone: Instructions* Name Dates Details How to Access Health Informa tion Online using Patient Portal and [employer] Indication:Non-smoker Start:09-Jul-2020 Instruction Type:Patient Education Patient Instructions Indication:Non-smoker Start:09-Jul-2020 Instruction Type:Provider Instructions for Treatment How to access health informa tion online Indication:Non-smoker Start:08-Jul-2019 Instruction Type:Patient Education How to access health informa tion online - Detail Indication:Non-smoker Start:08-Jul-2019 Instruction Type:Patient Education Patient Instructions Indication:Non-smoker Start:08-Jul-2019 Instruction Type:Provider Instructions for Treatment How to access health informa tion online Indication:Non-smoker Start:28-Apr-2019 Instruction Type:Patient Education How to access health informa tion online - Detail Indication:Non-smoker Start:28-Apr-2019 Instruction Type:Patient Education Patient Instructions Indication:Non-smoker Start:28-Apr-2019 Instruction Type:Provider Instructions for Treatment How to access health informa tion online Indication:Abnormal glucose tolerance test Start:10-Mar-2019 Instruction Type:Patient Education How to access health informa tion online - Detail Indication:Abnormal glucose tolerance test Start:10-Mar-2019 Instruction Type:Patient Education Patient Instructions Indication:Abnormal glucose tolerance test Start:10-Mar-2019 Instruction Type:Provider Instructions for Treatment How to access health informa tion online Indication:Abnormal glucose tolerance test Start:25-Oct-2018 Instruction Type:Patient Education How to access health informa tion online - Detail Indication:Abnormal glucose tolerance test Start:25-Oct-2018 Instruction Type:Patient Education Patient Instructions Indication:Abnormal glucose tolerance test Start:25-Oct-2018 Instruction Type:Provider Instructions for Treatment How to access health informa tion online - Detail Indication:Bronchitis Start:27-Sep-2018 Instruction Type:Patient Education Patient Instructions Indication:BMI 36.0-36.9,adult Start:27-Sep-2018 Instruction Type:Provider Instructions for Treatment How to access health informa tion online Indication:Non-smoker Start:21-Jun-2018 Instruction Type:Patient Education How to access health informa tion online - Detail Indication:Non-smoker Start:21-Jun-2018 Instruction Type:Patient Education Patient Instructions Indication:Non-smoker Start:21-Jun-2018 Instruction Type:Provider Instructions for Treatment How to access health informa tion online Indication:Non-smoker Start:10-May-2018 Instruction Type:Patient Education How to access health informa tion online - Detail Indication:Non-smoker Start:10-May-2018 Instruction Type:Patient Education Patient Instructions Indication:BMI 35.0-35.9,adult Start:10-May-2018 Instruction Type:Provider Instructions for Treatment How to access health informa tion online Indication:Non-smoker Start:14-Dec-2017 Instruction Type:Patient Education How to access health informa tion online - Detail Indication:Non-smoker Start:14-Dec-2017 Instruction Type:Patient Education Patient Instructions Indication:Non-smoker Start:14-Dec-2017 Instruction Type:Provider Instructions for Treatment How to access health informa tion online Indication:Cough Start:23-Jun-2017 Instruction Type:Patient Education How to access health informa tion online - Detail Indication:Cough Start:23-Jun-2017 Instruction Type:Patient Education Patient Instructions Indication:Cough Start:23-Jun-2017 Instruction Type:Provider Instructions for Treatment How to access health informa tion online Indication:Hyperlipidemia, mild Start:08-Jun-2017 Instruction Type:Patient Education How to access health informa tion online - Detail Indication:Hyperlipidemia, mild Start:08-Jun-2017 Instruction Type:Patient Education Patient Instructions Indication:Hyperlipidemia, mild Start:08-Jun-2017 Instruction Type:Provider Instructions for Treatment How to access health informa tion online Indication:Non-smoker Start:28-Apr-2017 Instruction Type:Patient Education How to access health informa tion online - Detail Indication:Non-smoker Start:28-Apr-2017 Instruction Type:Patient Education Patient Instructions Indication:Non-smoker Start:28-Apr-2017 Instruction Type:Provider Instructions for Treatment How to access health informa tion online Indication:BMI 34.0-34.9,adult Start:16-Apr-2017 Instruction Type:Patient Education How to access health informa tion online - Detail Indication:BMI 34.0-34.9,adult Start:16-Apr-2017 Instruction Type:Patient Education Patient Instructions Indication:BMI 34.0-34.9,adult Start:16-Apr-2017 Instruction Type:Provider Instructions for Treatment How to access health informa tion online Indication:Non-smoker Start:15-Jan-2017 Instruction Type:Patient Education How to access health informa tion online - Detail Indication:Non-smoker Start:15-Jan-2017 Instruction Type:Patient Education Patient Instructions Indication:Non-smoker Start:15-Jan-2017 Instruction Type:Provider Instructions for Treatment How to access health informa tion online Indication:BMI 35.0-35.9,adult Start:15-Dec-2016 Instruction Type:Patient Education How to access health informa tion online - Detail Indication:BMI 35.0-35.9,adult Start:15-Dec-2016 Instruction Type:Patient Education Patient Instructions Indication:BMI 35.0-35.9,adult Start:15-Dec-2016 Instruction Type:Provider Instructions for Treatment How to access health informa tion online Indication:Chronic asthma, unspecified asthma severity, uncomplicated Start:12-Sep-2016 Instruction Type:Patient Education How to access health informa tion online - Detail Indication:Chronic asthma, unspecified asthma severity, uncomplicated Start:12-Sep-2016 Instruction Type:Patient Education Patient Instructions Indication:Chronic asthma, unspecified asthma severity, uncomplicated Start:12-Sep-2016 Instruction Type:Provider Instructions for Treatment How to access health informa tion online Indication:Acute asthma flare Start:08-Sep-2016 Instruction Type:Patient Education How to access health informa tion online - Detail Indication:Acute asthma flare Start:08-Sep-2016 Instruction Type:Patient Education Patient Instructions Indication:Acute asthma flare Start:08-Sep-2016 Instruction Type:Provider Instructions for Treatment How to access health informa tion online Indication:Acute asthma flare Start:01-Sep-2016 Instruction Type:Patient Education How to access health informa tion online - Detail Indication:Acute asthma flare Start:01-Sep-2016 Instruction Type:Patient Education Patient Instructions Indication:Acute asthma flare Start:01-Sep-2016 Instruction Type:Provider Instructions for Treatment How to access health informa tion online Indication:Non-smoker Start:25-Aug-2016 Instruction Type:Patient Education How to access health informa tion online - Detail Indication:Non-smoker Start:25-Aug-2016 Instruction Type:Patient Education Patient Instructions Indication:Non-smoker Start:25-Aug-2016 Instruction Type:Provider Instructions for Treatment How to access health informa tion online Indication:BMI 34.0-34.9,adult Start:21-Jul-2016 Instruction Type:Patient Education How to access health informa tion online - Detail Indication:BMI 34.0-34.9,adult Start:21-Jul-2016 Instruction Type:Patient Education Patient Instructions Indication:BMI 34.0-34.9,adult Start:21-Jul-2016 Instruction Type:Provider Instructions for Treatment How to access health informa tion online Indication:Non-smoker Start:15-Apr-2016 Instruction Type:Patient Education How to access health informa tion online - Detail Indication:Non-smoker Start:15-Apr-2016 Instruction Type:Patient Education Patient Instructions Indication:Non-smoker Start:15-Apr-2016 Instruction Type:Provider Instructions for Treatment How to access health informa tion online Indication:Non-smoker Start:13-Mar-2016 Instruction Type:Patient Education How to access health informa tion online - Detail Indication:Non-smoker Start:13-Mar-2016 Instruction Type:Patient Education Patient Instructions Indication:Non-smoker Start:13-Mar-2016 Instruction Type:Provider Instructions for Treatment How to access health informa tion online Indication:Hypertension Start:07-Feb-2016 Instruction Type:Patient Education How to access health informa tion online - Detail Indication:Hypertension Start:07-Feb-2016 Instruction Type:Patient Education Patient Instructions Indication:Hypertension Start:07-Feb-2016 Instruction Type:Provider Instructions for Treatment How to access health informa tion online Indication:Sore throat Start:23-Jan-2016 Instruction Type:Patient Education How to access health informa tion online - Detail Indication:Sore throat Start:23-Jan-2016 Instruction Type:Patient Education Patient Instructions Indication:Sore throat Start:23-Jan-2016 Instruction Type:Provider Instructions for Treatment How to access health informa tion online Indication:Non-smoker Start:08-Jan-2016 Instruction Type:Patient Education How to access health informa tion online - Detail Indication:Non-smoker Start:08-Jan-2016 Instruction Type:Patient Education Patient Instructions Indication:Non-smoker Start:08-Jan-2016 Instruction Type:Provider Instructions for Treatment [facility]; [facility] Work Phone: Instructions* Name Dates Details How to Access Health Informa tion Online using Patient Portal and [employer] Apps Indication:Non-smoker Start:09-Jul-2020 Instruction Type:Patient Education Patient Instructions Indication:Non-smoker Start:09-Jul-2020 Instruction Type:Provider Instructions for Treatment How to access health informa tion online Indication:Non-smoker Start:08-Jul-2019 Instruction Type:Patient Education How to access health informa tion online - Detail Indication:Non-smoker Start:08-Jul-2019 Instruction Type:Patient Education Patient Instructions Indication:Non-smoker Start:08-Jul-2019 Instruction Type:Provider Instructions for Treatment How to access health informa tion online Indication:Non-smoker Start:28-Apr-2019 Instruction Type:Patient Education How to access health informa tion online - Detail Indication:Non-smoker Start:28-Apr-2019 Instruction Type:Patient Education Patient Instructions Indication:Non-smoker Start:28-Apr-2019 Instruction Type:Provider Instructions for Treatment How to access health informa tion online Indication:Abnormal glucose tolerance test Start:10-Mar-2019 Instruction Type:Patient Education How to access health informa tion online - Detail Indication:Abnormal glucose tolerance test Start:10-Mar-2019 Instruction Type:Patient Education Patient Instructions Indication:Abnormal glucose tolerance test Start:10-Mar-2019 Instruction Type:Provider Instructions for Treatment How to access health informa tion online Indication:Abnormal glucose tolerance test Start:25-Oct-2018 Instruction Type:Patient Education How to access health informa tion online - Detail Indication:Abnormal glucose tolerance test Start:25-Oct-2018 Instruction Type:Patient Education Patient Instructions Indication:Abnormal glucose tolerance test Start:25-Oct-2018 Instruction Type:Provider Instructions for Treatment How to access health informa tion online - Detail Indication:Bronchitis Start:27-Sep-2018 Instruction Type:Patient Education Patient Instructions Indication:BMI 36.0-36.9,adult Start:27-Sep-2018 Instruction Type:Provider Instructions for Treatment How to access health informa tion online Indication:Non-smoker Start:21-Jun-2018 Instruction Type:Patient Education How to access health informa tion online - Detail Indication:Non-smoker Start:21-Jun-2018 Instruction Type:Patient Education Patient Instructions Indication:Non-smoker Start:21-Jun-2018 Instruction Type:Provider Instructions for Treatment How to access health informa tion online Indication:Non-smoker Start:10-May-2018 Instruction Type:Patient Education How to access health informa tion online - Detail Indication:Non-smoker Start:10-May-2018 Instruction Type:Patient Education Patient Instructions Indication:BMI 35.0-35.9,adult Start:10-May-2018 Instruction Type:Provider Instructions for Treatment How to access health informa tion online Indication:Non-smoker Start:14-Dec-2017 Instruction Type:Patient Education How to access health informa tion online - Detail Indication:Non-smoker Start:14-Dec-2017 Instruction Type:Patient Education Patient Instructions Indication:Non-smoker Start:14-Dec-2017 Instruction Type:Provider Instructions for Treatment How to access health informa tion online Indication:Cough Start:23-Jun-2017 Instruction Type:Patient Education How to access health informa tion online - Detail Indication:Cough Start:23-Jun-2017 Instruction Type:Patient Education Patient Instructions Indication:Cough Start:23-Jun-2017 Instruction Type:Provider Instructions for Treatment How to access health informa tion online Indication:Hyperlipidemia, mild Start:08-Jun-2017 Instruction Type:Patient Education How to access health informa tion online - Detail Indication:Hyperlipidemia, mild Start:08-Jun-2017 Instruction Type:Patient Education Patient Instructions Indication:Hyperlipidemia, mild Start:08-Jun-2017 Instruction Type:Provider Instructions for Treatment How to access health informa tion online Indication:Non-smoker Start:28-Apr-2017 Instruction Type:Patient Education How to access health informa tion online - Detail Indication:Non-smoker Start:28-Apr-2017 Instruction Type:Patient Education Patient Instructions Indication:Non-smoker Start:28-Apr-2017 Instruction Type:Provider Instructions for Treatment How to access health informa tion online Indication:BMI 34.0-34.9,adult Start:16-Apr-2017 Instruction Type:Patient Education How to access health informa tion online - Detail Indication:BMI 34.0-34.9,adult Start:16-Apr-2017 Instruction Type:Patient Education Patient Instructions Indication:BMI 34.0-34.9,adult Start:16-Apr-2017 Instruction Type:Provider Instructions for Treatment How to access health informa tion online Indication:Non-smoker Start:15-Jan-2017 Instruction Type:Patient Education How to access health informa tion online - Detail Indication:Non-smoker Start:15-Jan-2017 Instruction Type:Patient Education Patient Instructions Indication:Non-smoker Start:15-Jan-2017 Instruction Type:Provider Instructions for Treatment How to access health informa tion online Indication:BMI 35.0-35.9,adult Start:15-Dec-2016 Instruction Type:Patient Education How to access health informa tion online - Detail Indication:BMI 35.0-35.9,adult Start:15-Dec-2016 Instruction Type:Patient Education Patient Instructions Indication:BMI 35.0-35.9,adult Start:15-Dec-2016 Instruction Type:Provider Instructions for Treatment How to access health informa tion online Indication:Chronic asthma, unspecified asthma severity, uncomplicated Start:12-Sep-2016 Instruction Type:Patient Education How to access health informa tion online - Detail Indication:Chronic asthma, unspecified asthma severity, uncomplicated Start:12-Sep-2016 Instruction Type:Patient Education Patient Instructions Indication:Chronic asthma, unspecified asthma severity, uncomplicated Start:12-Sep-2016 Instruction Type:Provider Instructions for Treatment How to access health informa tion online Indication:Acute asthma flare Start:08-Sep-2016 Instruction Type:Patient Education How to access health informa tion online - Detail Indication:Acute asthma flare Start:08-Sep-2016 Instruction Type:Patient Education Patient Instructions Indication:Acute asthma flare Start:08-Sep-2016 Instruction Type:Provider Instructions for Treatment How to access health informa tion online Indication:Acute asthma flare Start:01-Sep-2016 Instruction Type:Patient Education How to access health informa tion online - Detail Indication:Acute asthma flare Start:01-Sep-2016 Instruction Type:Patient Education Patient Instructions Indication:Acute asthma flare Start:01-Sep-2016 Instruction Type:Provider Instructions for Treatment How to access health informa tion online Indication:Non-smoker Start:25-Aug-2016 Instruction Type:Patient Education How to access health informa tion online - Detail Indication:Non-smoker Start:25-Aug-2016 Instruction Type:Patient Education Patient Instructions Indication:Non-smoker Start:25-Aug-2016 Instruction Type:Provider Instructions for Treatment How to access health informa tion online Indication:BMI 34.0-34.9,adult Start:21-Jul-2016 Instruction Type:Patient Education How to access health informa tion online - Detail Indication:BMI 34.0-34.9,adult Start:21-Jul-2016 Instruction Type:Patient Education Patient Instructions Indication:BMI 34.0-34.9,adult Start:21-Jul-2016 Instruction Type:Provider Instructions for Treatment How to access health informa tion online Indication:Non-smoker Start:15-Apr-2016 Instruction Type:Patient Education How to access health informa tion online - Detail Indication:Non-smoker Start:15-Apr-2016 Instruction Type:Patient Education Patient Instructions Indication:Non-smoker Start:15-Apr-2016 Instruction Type:Provider Instructions for Treatment How to access health informa tion online Indication:Non-smoker Start:13-Mar-2016 Instruction Type:Patient Education How to access health informa tion online - Detail Indication:Non-smoker Start:13-Mar-2016 Instruction Type:Patient Education Patient Instructions Indication:Non-smoker Start:13-Mar-2016 Instruction Type:Provider Instructions for Treatment How to access health informa tion online Indication:Hypertension Start:07-Feb-2016 Instruction Type:Patient Education How to access health informa tion online - Detail Indication:Hypertension Start:07-Feb-2016 Instruction Type:Patient Education Patient Instructions Indication:Hypertension Start:07-Feb-2016 Instruction Type:Provider Instructions for Treatment How to access health informa tion online Indication:Sore throat Start:23-Jan-2016 Instruction Type:Patient Education How to access health informa tion online - Detail Indication:Sore throat Start:23-Jan-2016 Instruction Type:Patient Education Patient Instructions Indication:Sore throat Start:23-Jan-2016 Instruction Type:Provider Instructions for Treatment How to access health informa tion online Indication:Non-smoker Start:08-Jan-2016 Instruction Type:Patient Education How to access health informa tion online - Detail Indication:Non-smoker Start:08-Jan-2016 Instruction Type:Patient Education Patient Instructions Indication:Non-smoker Start:08-Jan-2016 Instruction Type:Provider Instructions for Treatment [facility]; [facility] Work Phone: Instructions* Name Dates Details How to Access Health Informa tion Online using Patient Portal and [employer] Apps Indication:Non-smoker Start:09-Jul-2020 Instruction Type:Patient Education Patient Instructions Indication:Non-smoker Start:09-Jul-2020 Instruction Type:Provider Instructions for Treatment How to access health informa tion online Indication:Non-smoker Start:08-Jul-2019 Instruction Type:Patient Education How to access health informa tion online - Detail Indication:Non-smoker Start:08-Jul-2019 Instruction Type:Patient Education Patient Instructions Indication:Non-smoker Start:08-Jul-2019 Instruction Type:Provider Instructions for Treatment How to access health informa tion online Indication:Non-smoker Start:28-Apr-2019 Instruction Type:Patient Education How to access health informa tion online - Detail Indication:Non-smoker Start:28-Apr-2019 Instruction Type:Patient Education Patient Instructions Indication:Non-smoker Start:28-Apr-2019 Instruction Type:Provider Instructions for Treatment How to access health informa tion online Indication:Abnormal glucose tolerance test Start:10-Mar-2019 Instruction Type:Patient Education How to access health informa tion online - Detail Indication:Abnormal glucose tolerance test Start:10-Mar-2019 Instruction Type:Patient Education Patient Instructions Indication:Abnormal glucose tolerance test Start:10-Mar-2019 Instruction Type:Provider Instructions for Treatment How to access health informa tion online Indication:Abnormal glucose tolerance test Start:25-Oct-2018 Instruction Type:Patient Education How to access health informa tion online - Detail Indication:Abnormal glucose tolerance test Start:25-Oct-2018 Instruction Type:Patient Education Patient Instructions Indication:Abnormal glucose tolerance test Start:25-Oct-2018 Instruction Type:Provider Instructions for Treatment How to access health informa tion online - Detail Indication:Bronchitis Start:27-Sep-2018 Instruction Type:Patient Education Patient Instructions Indication:BMI 36.0-36.9,adult Start:27-Sep-2018 Instruction Type:Provider Instructions for Treatment How to access health informa tion online Indication:Non-smoker Start:21-Jun-2018 Instruction Type:Patient Education How to access health informa tion online - Detail Indication:Non-smoker Start:21-Jun-2018 Instruction Type:Patient Education Patient Instructions Indication:Non-smoker Start:21-Jun-2018 Instruction Type:Provider Instructions for Treatment How to access health informa tion online Indication:Non-smoker Start:10-May-2018 Instruction Type:Patient Education How to access health informa tion online - Detail Indication:Non-smoker Start:10-May-2018 Instruction Type:Patient Education Patient Instructions Indication:BMI 35.0-35.9,adult Start:10-May-2018 Instruction Type:Provider Instructions for Treatment How to access health informa tion online Indication:Non-smoker Start:14-Dec-2017 Instruction Type:Patient Education How to access health informa tion online - Detail Indication:Non-smoker Start:14-Dec-2017 Instruction Type:Patient Education Patient Instructions Indication:Non-smoker Start:14-Dec-2017 Instruction Type:Provider Instructions for Treatment How to access health informa tion online Indication:Cough Start:23-Jun-2017 Instruction Type:Patient Education How to access health informa tion online - Detail Indication:Cough Start:23-Jun-2017 Instruction Type:Patient Education Patient Instructions Indication:Cough Start:23-Jun-2017 Instruction Type:Provider Instructions for Treatment How to access health informa tion online Indication:Hyperlipidemia, mild Start:08-Jun-2017 Instruction Type:Patient Education How to access health informa tion online - Detail Indication:Hyperlipidemia, mild Start:08-Jun-2017 Instruction Type:Patient Education Patient Instructions Indication:Hyperlipidemia, mild Start:08-Jun-2017 Instruction Type:Provider Instructions for Treatment How to access health informa tion online Indication:Non-smoker Start:28-Apr-2017 Instruction Type:Patient Education How to access health informa tion online - Detail Indication:Non-smoker Start:28-Apr-2017 Instruction Type:Patient Education Patient Instructions Indication:Non-smoker Start:28-Apr-2017 Instruction Type:Provider Instructions for Treatment How to access health informa tion online Indication:BMI 34.0-34.9,adult Start:16-Apr-2017 Instruction Type:Patient Education How to access health informa tion online - Detail Indication:BMI 34.0-34.9,adult Start:16-Apr-2017 Instruction Type:Patient Education Patient Instructions Indication:BMI 34.0-34.9,adult Start:16-Apr-2017 Instruction Type:Provider Instructions for Treatment How to access health informa tion online Indication:Non-smoker Start:15-Jan-2017 Instruction Type:Patient Education How to access health informa tion online - Detail Indication:Non-smoker Start:15-Jan-2017 Instruction Type:Patient Education Patient Instructions Indication:Non-smoker Start:15-Jan-2017 Instruction Type:Provider Instructions for Treatment How to access health informa tion online Indication:BMI 35.0-35.9,adult Start:15-Dec-2016 Instruction Type:Patient Education How to access health informa tion online - Detail Indication:BMI 35.0-35.9,adult Start:15-Dec-2016 Instruction Type:Patient Education Patient Instructions Indication:BMI 35.0-35.9,adult Start:15-Dec-2016 Instruction Type:Provider Instructions for Treatment How to access health informa tion online Indication:Chronic asthma, unspecified asthma severity, uncomplicated Start:12-Sep-2016 Instruction Type:Patient Education How to access health informa tion online - Detail Indication:Chronic asthma, unspecified asthma severity, uncomplicated Start:12-Sep-2016 Instruction Type:Patient Education Patient Instructions Indication:Chronic asthma, unspecified asthma severity, uncomplicated Start:12-Sep-2016 Instruction Type:Provider Instructions for Treatment How to access health informa tion online Indication:Acute asthma flare Start:08-Sep-2016 Instruction Type:Patient Education How to access health informa tion online - Detail Indication:Acute asthma flare Start:08-Sep-2016 Instruction Type:Patient Education Patient Instructions Indication:Acute asthma flare Start:08-Sep-2016 Instruction Type:Provider Instructions for Treatment How to access health informa tion online Indication:Acute asthma flare Start:01-Sep-2016 Instruction Type:Patient Education How to access health informa tion online - Detail Indication:Acute asthma flare Start:01-Sep-2016 Instruction Type:Patient Education Patient Instructions Indication:Acute asthma flare Start:01-Sep-2016 Instruction Type:Provider Instructions for Treatment How to access health informa tion online Indication:Non-smoker Start:25-Aug-2016 Instruction Type:Patient Education How to access health informa tion online - Detail Indication:Non-smoker Start:25-Aug-2016 Instruction Type:Patient Education Patient Instructions Indication:Non-smoker Start:25-Aug-2016 Instruction Type:Provider Instructions for Treatment How to access health informa tion online Indication:BMI 34.0-34.9,adult Start:21-Jul-2016 Instruction Type:Patient Education How to access health informa tion online - Detail Indication:BMI 34.0-34.9,adult Start:21-Jul-2016 Instruction Type:Patient Education Patient Instructions Indication:BMI 34.0-34.9,adult Start:21-Jul-2016 Instruction Type:Provider Instructions for Treatment How to access health informa tion online Indication:Non-smoker Start:15-Apr-2016 Instruction Type:Patient Education How to access health informa tion online - Detail Indication:Non-smoker Start:15-Apr-2016 Instruction Type:Patient Education Patient Instructions Indication:Non-smoker Start:15-Apr-2016 Instruction Type:Provider Instructions for Treatment How to access health informa tion online Indication:Non-smoker Start:13-Mar-2016 Instruction Type:Patient Education How to access health informa tion online - Detail Indication:Non-smoker Start:13-Mar-2016 Instruction Type:Patient Education Patient Instructions Indication:Non-smoker Start:13-Mar-2016 Instruction Type:Provider Instructions for Treatment How to access health informa tion online Indication:Hypertension Start:07-Feb-2016 Instruction Type:Patient Education How to access health informa tion online - Detail Indication:Hypertension Start:07-Feb-2016 Instruction Type:Patient Education Patient Instructions Indication:Hypertension Start:07-Feb-2016 Instruction Type:Provider Instructions for Treatment How to access health informa tion online Indication:Sore throat Start:23-Jan-2016 Instruction Type:Patient Education How to access health informa tion online - Detail Indication:Sore throat Start:23-Jan-2016 Instruction Type:Patient Education Patient Instructions Indication:Sore throat Start:23-Jan-2016 Instruction Type:Provider Instructions for Treatment How to access health informa tion online Indication:Non-smoker Start:08-Jan-2016 Instruction Type:Patient Education How to access health informa tion online - Detail Indication:Non-smoker Start:08-Jan-2016 Instruction Type:Patient Education Patient Instructions Indication:Non-smoker Start:08-Jan-2016 Instruction Type:Provider Instructions for Treatment [facility]; [facility] Work Phone: Instructions* Name Dates Details How to Access Health Informa tion Online using Patient Portal and [employer] Apps Indication:Non-smoker Start:09-Jul-2020 Instruction Type:Patient Education Patient Instructions Indication:Non-smoker Start:09-Jul-2020 Instruction Type:Provider Instructions for Treatment How to access health informa tion online Indication:Non-smoker Start:08-Jul-2019 Instruction Type:Patient Education How to access health informa tion online - Detail Indication:Non-smoker Start:08-Jul-2019 Instruction Type:Patient Education Patient Instructions Indication:Non-smoker Start:08-Jul-2019 Instruction Type:Provider Instructions for Treatment How to access health informa tion online Indication:Non-smoker Start:28-Apr-2019 Instruction Type:Patient Education How to access health informa tion online - Detail Indication:Non-smoker Start:28-Apr-2019 Instruction Type:Patient Education Patient Instructions Indication:Non-smoker Start:28-Apr-2019 Instruction Type:Provider Instructions for Treatment How to access health informa tion online Indication:Abnormal glucose tolerance test Start:10-Mar-2019 Instruction Type:Patient Education How to access health informa tion online - Detail Indication:Abnormal glucose tolerance test Start:10-Mar-2019 Instruction Type:Patient Education Patient Instructions Indication:Abnormal glucose tolerance test Start:10-Mar-2019 Instruction Type:Provider Instructions for Treatment How to access health informa tion online Indication:Abnormal glucose tolerance test Start:25-Oct-2018 Instruction Type:Patient Education How to access health informa tion online - Detail Indication:Abnormal glucose tolerance test Start:25-Oct-2018 Instruction Type:Patient Education Patient Instructions Indication:Abnormal glucose tolerance test Start:25-Oct-2018 Instruction Type:Provider Instructions for Treatment How to access health informa tion online - Detail Indication:Bronchitis Start:27-Sep-2018 Instruction Type:Patient Education Patient Instructions Indication:BMI 36.0-36.9,adult Start:27-Sep-2018 Instruction Type:Provider Instructions for Treatment How to access health informa tion online Indication:Non-smoker Start:21-Jun-2018 Instruction Type:Patient Education How to access health informa tion online - Detail Indication:Non-smoker Start:21-Jun-2018 Instruction Type:Patient Education Patient Instructions Indication:Non-smoker Start:21-Jun-2018 Instruction Type:Provider Instructions for Treatment How to access health informa tion online Indication:Non-smoker Start:10-May-2018 Instruction Type:Patient Education How to access health informa tion online - Detail Indication:Non-smoker Start:10-May-2018 Instruction Type:Patient Education Patient Instructions Indication:BMI 35.0-35.9,adult Start:10-May-2018 Instruction Type:Provider Instructions for Treatment How to access health informa tion online Indication:Non-smoker Start:14-Dec-2017 Instruction Type:Patient Education How to access health informa tion online - Detail Indication:Non-smoker Start:14-Dec-2017 Instruction Type:Patient Education Patient Instructions Indication:Non-smoker Start:14-Dec-2017 Instruction Type:Provider Instructions for Treatment How to access health informa tion online Indication:Cough Start:23-Jun-2017 Instruction Type:Patient Education How to access health informa tion online - Detail Indication:Cough Start:23-Jun-2017 Instruction Type:Patient Education Patient Instructions Indication:Cough Start:23-Jun-2017 Instruction Type:Provider Instructions for Treatment How to access health informa tion online Indication:Hyperlipidemia, mild Start:08-Jun-2017 Instruction Type:Patient Education How to access health informa tion online - Detail Indication:Hyperlipidemia, mild Start:08-Jun-2017 Instruction Type:Patient Education Patient Instructions Indication:Hyperlipidemia, mild Start:08-Jun-2017 Instruction Type:Provider Instructions for Treatment How to access health informa tion online Indication:Non-smoker Start:28-Apr-2017 Instruction Type:Patient Education How to access health informa tion online - Detail Indication:Non-smoker Start:28-Apr-2017 Instruction Type:Patient Education Patient Instructions Indication:Non-smoker Start:28-Apr-2017 Instruction Type:Provider Instructions for Treatment How to access health informa tion online Indication:BMI 34.0-34.9,adult Start:16-Apr-2017 Instruction Type:Patient Education How to access health informa tion online - Detail Indication:BMI 34.0-34.9,adult Start:16-Apr-2017 Instruction Type:Patient Education Patient Instructions Indication:BMI 34.0-34.9,adult Start:16-Apr-2017 Instruction Type:Provider Instructions for Treatment How to access health informa tion online Indication:Non-smoker Start:15-Jan-2017 Instruction Type:Patient Education How to access health informa tion online - Detail Indication:Non-smoker Start:15-Jan-2017 Instruction Type:Patient Education Patient Instructions Indication:Non-smoker Start:15-Jan-2017 Instruction Type:Provider Instructions for Treatment How to access health informa tion online Indication:BMI 35.0-35.9,adult Start:15-Dec-2016 Instruction Type:Patient Education How to access health informa tion online - Detail Indication:BMI 35.0-35.9,adult Start:15-Dec-2016 Instruction Type:Patient Education Patient Instructions Indication:BMI 35.0-35.9,adult Start:15-Dec-2016 Instruction Type:Provider Instructions for Treatment How to access health informa tion online Indication:Chronic asthma, unspecified asthma severity, uncomplicated Start:12-Sep-2016 Instruction Type:Patient Education How to access health informa tion online - Detail Indication:Chronic asthma, unspecified asthma severity, uncomplicated Start:12-Sep-2016 Instruction Type:Patient Education Patient Instructions Indication:Chronic asthma, unspecified asthma severity, uncomplicated Start:12-Sep-2016 Instruction Type:Provider Instructions for Treatment How to access health informa tion online Indication:Acute asthma flare Start:08-Sep-2016 Instruction Type:Patient Education How to access health informa tion online - Detail Indication:Acute asthma flare Start:08-Sep-2016 Instruction Type:Patient Education Patient Instructions Indication:Acute asthma flare Start:08-Sep-2016 Instruction Type:Provider Instructions for Treatment How to access health informa tion online Indication:Acute asthma flare Start:01-Sep-2016 Instruction Type:Patient Education How to access health informa tion online - Detail Indication:Acute asthma flare Start:01-Sep-2016 Instruction Type:Patient Education Patient Instructions Indication:Acute asthma flare Start:01-Sep-2016 Instruction Type:Provider Instructions for Treatment How to access health informa tion online Indication:Non-smoker Start:25-Aug-2016 Instruction Type:Patient Education How to access health informa tion online - Detail Indication:Non-smoker Start:25-Aug-2016 Instruction Type:Patient Education Patient Instructions Indication:Non-smoker Start:25-Aug-2016 Instruction Type:Provider Instructions for Treatment How to access health informa tion online Indication:BMI 34.0-34.9,adult Start:21-Jul-2016 Instruction Type:Patient Education How to access health informa tion online - Detail Indication:BMI 34.0-34.9,adult Start:21-Jul-2016 Instruction Type:Patient Education Patient Instructions Indication:BMI 34.0-34.9,adult Start:21-Jul-2016 Instruction Type:Provider Instructions for Treatment How to access health informa tion online Indication:Non-smoker Start:15-Apr-2016 Instruction Type:Patient Education How to access health informa tion online - Detail Indication:Non-smoker Start:15-Apr-2016 Instruction Type:Patient Education Patient Instructions Indication:Non-smoker Start:15-Apr-2016 Instruction Type:Provider Instructions for Treatment How to access health informa tion online Indication:Non-smoker Start:13-Mar-2016 Instruction Type:Patient Education How to access health informa tion online - Detail Indication:Non-smoker Start:13-Mar-2016 Instruction Type:Patient Education Patient Instructions Indication:Non-smoker Start:13-Mar-2016 Instruction Type:Provider Instructions for Treatment How to access health informa tion online Indication:Hypertension Start:07-Feb-2016 Instruction Type:Patient Education How to access health informa tion online - Detail Indication:Hypertension Start:07-Feb-2016 Instruction Type:Patient Education Patient Instructions Indication:Hypertension Start:07-Feb-2016 Instruction Type:Provider Instructions for Treatment How to access health informa tion online Indication:Sore throat Start:23-Jan-2016 Instruction Type:Patient Education How to access health informa tion online - Detail Indication:Sore throat Start:23-Jan-2016 Instruction Type:Patient Education Patient Instructions Indication:Sore throat Start:23-Jan-2016 Instruction Type:Provider Instructions for Treatment How to access health informa tion online Indication:Non-smoker Start:08-Jan-2016 Instruction Type:Patient Education How to access health informa tion online - Detail Indication:Non-smoker Start:08-Jan-2016 Instruction Type:Patient Education Patient Instructions Indication:Non-smoker Start:08-Jan-2016 Instruction Type:Provider Instructions for Treatment [facility]; [facility] Work Phone: Instructions* Name Dates Details How to Access Health Informa tion Online using Patient Portal and [employer] Apps Indication:Non-smoker Start:06-Aug-2020 Instruction Type:Patient Education Patient Instructions Indication:Non-smoker Start:06-Aug-2020 Instruction Type:Provider Instructions for Treatment How to Access Health Informa tion Online using Patient Portal and [employer] Apps Indication:Non-smoker Start:09-Jul-2020 Instruction Type:Patient Education Patient Instructions Indication:Non-smoker Start:09-Jul-2020 Instruction Type:Provider Instructions for Treatment How to access health informa tion online Indication:Non-smoker Start:08-Jul-2019 Instruction Type:Patient Education How to access health informa tion online - Detail Indication:Non-smoker Start:08-Jul-2019 Instruction Type:Patient Education Patient Instructions Indication:Non-smoker Start:08-Jul-2019 Instruction Type:Provider Instructions for Treatment How to access health informa tion online Indication:Non-smoker Start:28-Apr-2019 Instruction Type:Patient Education How to access health informa tion online - Detail Indication:Non-smoker Start:28-Apr-2019 Instruction Type:Patient Education Patient Instructions Indication:Non-smoker Start:28-Apr-2019 Instruction Type:Provider Instructions for Treatment How to access health informa tion online Indication:Abnormal glucose tolerance test Start:10-Mar-2019 Instruction Type:Patient Education How to access health informa tion online - Detail Indication:Abnormal glucose tolerance test Start:10-Mar-2019 Instruction Type:Patient Education Patient Instructions Indication:Abnormal glucose tolerance test Start:10-Mar-2019 Instruction Type:Provider Instructions for Treatment How to access health informa tion online Indication:Abnormal glucose tolerance test Start:25-Oct-2018 Instruction Type:Patient Education How to access health informa tion online - Detail Indication:Abnormal glucose tolerance test Start:25-Oct-2018 Instruction Type:Patient Education Patient Instructions Indication:Abnormal glucose tolerance test Start:25-Oct-2018 Instruction Type:Provider Instructions for Treatment How to access health informa tion online - Detail Indication:Bronchitis Start:27-Sep-2018 Instruction Type:Patient Education Patient Instructions Indication:BMI 36.0-36.9,adult Start:27-Sep-2018 Instruction Type:Provider Instructions for Treatment How to access health informa tion online Indication:Non-smoker Start:21-Jun-2018 Instruction Type:Patient Education How to access health informa tion online - Detail Indication:Non-smoker Start:21-Jun-2018 Instruction Type:Patient Education Patient Instructions Indication:Non-smoker Start:21-Jun-2018 Instruction Type:Provider Instructions for Treatment How to access health informa tion online Indication:Non-smoker Start:10-May-2018 Instruction Type:Patient Education How to access health informa tion online - Detail Indication:Non-smoker Start:10-May-2018 Instruction Type:Patient Education Patient Instructions Indication:BMI 35.0-35.9,adult Start:10-May-2018 Instruction Type:Provider Instructions for Treatment How to access health informa tion online Indication:Non-smoker Start:14-Dec-2017 Instruction Type:Patient Education How to access health informa tion online - Detail Indication:Non-smoker Start:14-Dec-2017 Instruction Type:Patient Education Patient Instructions Indication:Non-smoker Start:14-Dec-2017 Instruction Type:Provider Instructions for Treatment How to access health informa tion online Indication:Cough Start:23-Jun-2017 Instruction Type:Patient Education How to access health informa tion online - Detail Indication:Cough Start:23-Jun-2017 Instruction Type:Patient Education Patient Instructions Indication:Cough Start:23-Jun-2017 Instruction Type:Provider Instructions for Treatment How to access health informa tion online Indication:Hyperlipidemia, mild Start:08-Jun-2017 Instruction Type:Patient Education How to access health informa tion online - Detail Indication:Hyperlipidemia, mild Start:08-Jun-2017 Instruction Type:Patient Education Patient Instructions Indication:Hyperlipidemia, mild Start:08-Jun-2017 Instruction Type:Provider Instructions for Treatment How to access health informa tion online Indication:Non-smoker Start:28-Apr-2017 Instruction Type:Patient Education How to access health informa tion online - Detail Indication:Non-smoker Start:28-Apr-2017 Instruction Type:Patient Education Patient Instructions Indication:Non-smoker Start:28-Apr-2017 Instruction Type:Provider Instructions for Treatment How to access health informa tion online Indication:BMI 34.0-34.9,adult Start:16-Apr-2017 Instruction Type:Patient Education How to access health informa tion online - Detail Indication:BMI 34.0-34.9,adult Start:16-Apr-2017 Instruction Type:Patient Education Patient Instructions Indication:BMI 34.0-34.9,adult Start:16-Apr-2017 Instruction Type:Provider Instructions for Treatment How to access health informa tion online Indication:Non-smoker Start:15-Jan-2017 Instruction Type:Patient Education How to access health informa tion online - Detail Indication:Non-smoker Start:15-Jan-2017 Instruction Type:Patient Education Patient Instructions Indication:Non-smoker Start:15-Jan-2017 Instruction Type:Provider Instructions for Treatment How to access health informa tion online Indication:BMI 35.0-35.9,adult Start:15-Dec-2016 Instruction Type:Patient Education How to access health informa tion online - Detail Indication:BMI 35.0-35.9,adult Start:15-Dec-2016 Instruction Type:Patient Education Patient Instructions Indication:BMI 35.0-35.9,adult Start:15-Dec-2016 Instruction Type:Provider Instructions for Treatment How to access health informa tion online Indication:Chronic asthma, unspecified asthma severity, uncomplicated Start:12-Sep-2016 Instruction Type:Patient Education How to access health informa tion online - Detail Indication:Chronic asthma, unspecified asthma severity, uncomplicated Start:12-Sep-2016 Instruction Type:Patient Education Patient Instructions Indication:Chronic asthma, unspecified asthma severity, uncomplicated Start:12-Sep-2016 Instruction Type:Provider Instructions for Treatment How to access health informa tion online Indication:Acute asthma flare Start:08-Sep-2016 Instruction Type:Patient Education How to access health informa tion online - Detail Indication:Acute asthma flare Start:08-Sep-2016 Instruction Type:Patient Education Patient Instructions Indication:Acute asthma flare Start:08-Sep-2016 Instruction Type:Provider Instructions for Treatment How to access health informa tion online Indication:Acute asthma flare Start:01-Sep-2016 Instruction Type:Patient Education How to access health informa tion online - Detail Indication:Acute asthma flare Start:01-Sep-2016 Instruction Type:Patient Education Patient Instructions Indication:Acute asthma flare Start:01-Sep-2016 Instruction Type:Provider Instructions for Treatment How to access health informa tion online Indication:Non-smoker Start:25-Aug-2016 Instruction Type:Patient Education How to access health informa tion online - Detail Indication:Non-smoker Start:25-Aug-2016 Instruction Type:Patient Education Patient Instructions Indication:Non-smoker Start:25-Aug-2016 Instruction Type:Provider Instructions for Treatment How to access health informa tion online Indication:BMI 34.0-34.9,adult Start:21-Jul-2016 Instruction Type:Patient Education How to access health informa tion online - Detail Indication:BMI 34.0-34.9,adult Start:21-Jul-2016 Instruction Type:Patient Education Patient Instructions Indication:BMI 34.0-34.9,adult Start:21-Jul-2016 Instruction Type:Provider Instructions for Treatment How to access health informa tion online Indication:Non-smoker Start:15-Apr-2016 Instruction Type:Patient Education How to access health informa tion online - Detail Indication:Non-smoker Start:15-Apr-2016 Instruction Type:Patient Education Patient Instructions Indication:Non-smoker Start:15-Apr-2016 Instruction Type:Provider Instructions for Treatment How to access health informa tion online Indication:Non-smoker Start:13-Mar-2016 Instruction Type:Patient Education How to access health informa tion online - Detail Indication:Non-smoker Start:13-Mar-2016 Instruction Type:Patient Education Patient Instructions Indication:Non-smoker Start:13-Mar-2016 Instruction Type:Provider Instructions for Treatment How to access health informa tion online Indication:Hypertension Start:07-Feb-2016 Instruction Type:Patient Education How to access health informa tion online - Detail Indication:Hypertension Start:07-Feb-2016 Instruction Type:Patient Education Patient Instructions Indication:Hypertension Start:07-Feb-2016 Instruction Type:Provider Instructions for Treatment How to access health informa tion online Indication:Sore throat Start:23-Jan-2016 Instruction Type:Patient Education How to access health informa tion online - Detail Indication:Sore throat Start:23-Jan-2016 Instruction Type:Patient Education Patient Instructions Indication:Sore throat Start:23-Jan-2016 Instruction Type:Provider Instructions for Treatment How to access health informa tion online Indication:Non-smoker Start:08-Jan-2016 Instruction Type:Patient Education How to access health informa tion online - Detail Indication:Non-smoker Start:08-Jan-2016 Instruction Type:Patient Education Patient Instructions Indication:Non-smoker Start:08-Jan-2016 Instruction Type:Provider Instructions for Treatment [facility]; [facility] Work Phone: Instructions* Name Dates Details How to Access Health Informa tion Online using Patient Portal and [employer] Apps Indication:Non-smoker Start:06-Aug-2020 Instruction Type:Patient Education Patient Instructions Indication:Non-smoker Start:06-Aug-2020 Instruction Type:Provider Instructions for Treatment How to Access Health Informa tion Online using Patient Portal and [employer] Apps Indication:Non-smoker Start:09-Jul-2020 Instruction Type:Patient Education Patient Instructions Indication:Non-smoker Start:09-Jul-2020 Instruction Type:Provider Instructions for Treatment How to access health informa tion online Indication:Non-smoker Start:08-Jul-2019 Instruction Type:Patient Education How to access health informa tion online - Detail Indication:Non-smoker Start:08-Jul-2019 Instruction Type:Patient Education Patient Instructions Indication:Non-smoker Start:08-Jul-2019 Instruction Type:Provider Instructions for Treatment How to access health informa tion online Indication:Non-smoker Start:28-Apr-2019 Instruction Type:Patient Education How to access health informa tion online - Detail Indication:Non-smoker Start:28-Apr-2019 Instruction Type:Patient Education Patient Instructions Indication:Non-smoker Start:28-Apr-2019 Instruction Type:Provider Instructions for Treatment How to access health informa tion online Indication:Abnormal glucose tolerance test Start:10-Mar-2019 Instruction Type:Patient Education How to access health informa tion online - Detail Indication:Abnormal glucose tolerance test Start:10-Mar-2019 Instruction Type:Patient Education Patient Instructions Indication:Abnormal glucose tolerance test Start:10-Mar-2019 Instruction Type:Provider Instructions for Treatment How to access health informa tion online Indication:Abnormal glucose tolerance test Start:25-Oct-2018 Instruction Type:Patient Education How to access health informa tion online - Detail Indication:Abnormal glucose tolerance test Start:25-Oct-2018 Instruction Type:Patient Education Patient Instructions Indication:Abnormal glucose tolerance test Start:25-Oct-2018 Instruction Type:Provider Instructions for Treatment How to access health informa tion online - Detail Indication:Bronchitis Start:27-Sep-2018 Instruction Type:Patient Education Patient Instructions Indication:BMI 36.0-36.9,adult Start:27-Sep-2018 Instruction Type:Provider Instructions for Treatment How to access health informa tion online Indication:Non-smoker Start:21-Jun-2018 Instruction Type:Patient Education How to access health informa tion online - Detail Indication:Non-smoker Start:21-Jun-2018 Instruction Type:Patient Education Patient Instructions Indication:Non-smoker Start:21-Jun-2018 Instruction Type:Provider Instructions for Treatment How to access health informa tion online Indication:Non-smoker Start:10-May-2018 Instruction Type:Patient Education How to access health informa tion online - Detail Indication:Non-smoker Start:10-May-2018 Instruction Type:Patient Education Patient Instructions Indication:BMI 35.0-35.9,adult Start:10-May-2018 Instruction Type:Provider Instructions for Treatment How to access health informa tion online Indication:Non-smoker Start:14-Dec-2017 Instruction Type:Patient Education How to access health informa tion online - Detail Indication:Non-smoker Start:14-Dec-2017 Instruction Type:Patient Education Patient Instructions Indication:Non-smoker Start:14-Dec-2017 Instruction Type:Provider Instructions for Treatment How to access health informa tion online Indication:Cough Start:23-Jun-2017 Instruction Type:Patient Education How to access health informa tion online - Detail Indication:Cough Start:23-Jun-2017 Instruction Type:Patient Education Patient Instructions Indication:Cough Start:23-Jun-2017 Instruction Type:Provider Instructions for Treatment How to access health informa tion online Indication:Hyperlipidemia, mild Start:08-Jun-2017 Instruction Type:Patient Education How to access health informa tion online - Detail Indication:Hyperlipidemia, mild Start:08-Jun-2017 Instruction Type:Patient Education Patient Instructions Indication:Hyperlipidemia, mild Start:08-Jun-2017 Instruction Type:Provider Instructions for Treatment How to access health informa tion online Indication:Non-smoker Start:28-Apr-2017 Instruction Type:Patient Education How to access health informa tion online - Detail Indication:Non-smoker Start:28-Apr-2017 Instruction Type:Patient Education Patient Instructions Indication:Non-smoker Start:28-Apr-2017 Instruction Type:Provider Instructions for Treatment How to access health informa tion online Indication:BMI 34.0-34.9,adult Start:16-Apr-2017 Instruction Type:Patient Education How to access health informa tion online - Detail Indication:BMI 34.0-34.9,adult Start:16-Apr-2017 Instruction Type:Patient Education Patient Instructions Indication:BMI 34.0-34.9,adult Start:16-Apr-2017 Instruction Type:Provider Instructions for Treatment How to access health informa tion online Indication:Non-smoker Start:15-Jan-2017 Instruction Type:Patient Education How to access health informa tion online - Detail Indication:Non-smoker Start:15-Jan-2017 Instruction Type:Patient Education Patient Instructions Indication:Non-smoker Start:15-Jan-2017 Instruction Type:Provider Instructions for Treatment How to access health informa tion online Indication:BMI 35.0-35.9,adult Start:15-Dec-2016 Instruction Type:Patient Education How to access health informa tion online - Detail Indication:BMI 35.0-35.9,adult Start:15-Dec-2016 Instruction Type:Patient Education Patient Instructions Indication:BMI 35.0-35.9,adult Start:15-Dec-2016 Instruction Type:Provider Instructions for Treatment How to access health informa tion online Indication:Chronic asthma, unspecified asthma severity, uncomplicated Start:12-Sep-2016 Instruction Type:Patient Education How to access health informa tion online - Detail Indication:Chronic asthma, unspecified asthma severity, uncomplicated Start:12-Sep-2016 Instruction Type:Patient Education Patient Instructions Indication:Chronic asthma, unspecified asthma severity, uncomplicated Start:12-Sep-2016 Instruction Type:Provider Instructions for Treatment How to access health informa tion online Indication:Acute asthma flare Start:08-Sep-2016 Instruction Type:Patient Education How to access health informa tion online - Detail Indication:Acute asthma flare Start:08-Sep-2016 Instruction Type:Patient Education Patient Instructions Indication:Acute asthma flare Start:08-Sep-2016 Instruction Type:Provider Instructions for Treatment How to access health informa tion online Indication:Acute asthma flare Start:01-Sep-2016 Instruction Type:Patient Education How to access health informa tion online - Detail Indication:Acute asthma flare Start:01-Sep-2016 Instruction Type:Patient Education Patient Instructions Indication:Acute asthma flare Start:01-Sep-2016 Instruction Type:Provider Instructions for Treatment How to access health informa tion online Indication:Non-smoker Start:25-Aug-2016 Instruction Type:Patient Education How to access health informa tion online - Detail Indication:Non-smoker Start:25-Aug-2016 Instruction Type:Patient Education Patient Instructions Indication:Non-smoker Start:25-Aug-2016 Instruction Type:Provider Instructions for Treatment How to access health informa tion online Indication:BMI 34.0-34.9,adult Start:21-Jul-2016 Instruction Type:Patient Education How to access health informa tion online - Detail Indication:BMI 34.0-34.9,adult Start:21-Jul-2016 Instruction Type:Patient Education Patient Instructions Indication:BMI 34.0-34.9,adult Start:21-Jul-2016 Instruction Type:Provider Instructions for Treatment How to access health informa tion online Indication:Non-smoker Start:15-Apr-2016 Instruction Type:Patient Education How to access health informa tion online - Detail Indication:Non-smoker Start:15-Apr-2016 Instruction Type:Patient Education Patient Instructions Indication:Non-smoker Start:15-Apr-2016 Instruction Type:Provider Instructions for Treatment How to access health informa tion online Indication:Non-smoker Start:13-Mar-2016 Instruction Type:Patient Education How to access health informa tion online - Detail Indication:Non-smoker Start:13-Mar-2016 Instruction Type:Patient Education Patient Instructions Indication:Non-smoker Start:13-Mar-2016 Instruction Type:Provider Instructions for Treatment How to access health informa tion online Indication:Hypertension Start:07-Feb-2016 Instruction Type:Patient Education How to access health informa tion online - Detail Indication:Hypertension Start:07-Feb-2016 Instruction Type:Patient Education Patient Instructions Indication:Hypertension Start:07-Feb-2016 Instruction Type:Provider Instructions for Treatment How to access health informa tion online Indication:Sore throat Start:23-Jan-2016 Instruction Type:Patient Education How to access health informa tion online - Detail Indication:Sore throat Start:23-Jan-2016 Instruction Type:Patient Education Patient Instructions Indication:Sore throat Start:23-Jan-2016 Instruction Type:Provider Instructions for Treatment How to access health informa tion online Indication:Non-smoker Start:08-Jan-2016 Instruction Type:Patient Education How to access health informa tion online - Detail Indication:Non-smoker Start:08-Jan-2016 Instruction Type:Patient Education Patient Instructions Indication:Non-smoker Start:08-Jan-2016 Instruction Type:Provider Instructions for Treatment [facility]; [facility] Work Phone: Instructions* Name Dates Details Patient Instructions Indication:Non-smoker Start:09-Aug-2020 Instruction Type:Provider Instructions for Treatment How to Access Health Informa tion Online using Patient Portal and [employer]rd [employer] Apps Indication:Non-smoker Start:09-Aug-2020 Instruction Type:Patient Education How to Access Health Informa tion Online using Patient Portal and [employer] Apps Indication:Non-smoker Start:06-Aug-2020 Instruction Type:Patient Education Patient Instructions Indication:Non-smoker Start:06-Aug-2020 Instruction Type:Provider Instructions for Treatment How to Access Health Informa tion Online using Patient Portal and [employer] Apps Indication:Non-smoker Start:09-Jul-2020 Instruction Type:Patient Education Patient Instructions Indication:Non-smoker Start:09-Jul-2020 Instruction Type:Provider Instructions for Treatment How to access health informa tion online Indication:Non-smoker Start:08-Jul-2019 Instruction Type:Patient Education How to access health informa tion online - Detail Indication:Non-smoker Start:08-Jul-2019 Instruction Type:Patient Education Patient Instructions Indication:Non-smoker Start:08-Jul-2019 Instruction Type:Provider Instructions for Treatment How to access health informa tion online Indication:Non-smoker Start:28-Apr-2019 Instruction Type:Patient Education How to access health informa tion online - Detail Indication:Non-smoker Start:28-Apr-2019 Instruction Type:Patient Education Patient Instructions Indication:Non-smoker Start:28-Apr-2019 Instruction Type:Provider Instructions for Treatment How to access health informa tion online Indication:Abnormal glucose tolerance test Start:10-Mar-2019 Instruction Type:Patient Education How to access health informa tion online - Detail Indication:Abnormal glucose tolerance test Start:10-Mar-2019 Instruction Type:Patient Education Patient Instructions Indication:Abnormal glucose tolerance test Start:10-Mar-2019 Instruction Type:Provider Instructions for Treatment How to access health informa tion online Indication:Abnormal glucose tolerance test Start:25-Oct-2018 Instruction Type:Patient Education How to access health informa tion online - Detail Indication:Abnormal glucose tolerance test Start:25-Oct-2018 Instruction Type:Patient Education Patient Instructions Indication:Abnormal glucose tolerance test Start:25-Oct-2018 Instruction Type:Provider Instructions for Treatment How to access health informa tion online - Detail Indication:Bronchitis Start:27-Sep-2018 Instruction Type:Patient Education Patient Instructions Indication:BMI 36.0-36.9,adult Start:27-Sep-2018 Instruction Type:Provider Instructions for Treatment How to access health informa tion online Indication:Non-smoker Start:21-Jun-2018 Instruction Type:Patient Education How to access health informa tion online - Detail Indication:Non-smoker Start:21-Jun-2018 Instruction Type:Patient Education Patient Instructions Indication:Non-smoker Start:21-Jun-2018 Instruction Type:Provider Instructions for Treatment How to access health informa tion online Indication:Non-smoker Start:10-May-2018 Instruction Type:Patient Education How to access health informa tion online - Detail Indication:Non-smoker Start:10-May-2018 Instruction Type:Patient Education Patient Instructions Indication:BMI 35.0-35.9,adult Start:10-May-2018 Instruction Type:Provider Instructions for Treatment How to access health informa tion online Indication:Non-smoker Start:14-Dec-2017 Instruction Type:Patient Education How to access health informa tion online - Detail Indication:Non-smoker Start:14-Dec-2017 Instruction Type:Patient Education Patient Instructions Indication:Non-smoker Start:14-Dec-2017 Instruction Type:Provider Instructions for Treatment How to access health informa tion online Indication:Cough Start:23-Jun-2017 Instruction Type:Patient Education How to access health informa tion online - Detail Indication:Cough Start:23-Jun-2017 Instruction Type:Patient Education Patient Instructions Indication:Cough Start:23-Jun-2017 Instruction Type:Provider Instructions for Treatment How to access health informa tion online Indication:Hyperlipidemia, mild Start:08-Jun-2017 Instruction Type:Patient Education How to access health informa tion online - Detail Indication:Hyperlipidemia, mild Start:08-Jun-2017 Instruction Type:Patient Education Patient Instructions Indication:Hyperlipidemia, mild Start:08-Jun-2017 Instruction Type:Provider Instructions for Treatment How to access health informa tion online Indication:Non-smoker Start:28-Apr-2017 Instruction Type:Patient Education How to access health informa tion online - Detail Indication:Non-smoker Start:28-Apr-2017 Instruction Type:Patient Education Patient Instructions Indication:Non-smoker Start:28-Apr-2017 Instruction Type:Provider Instructions for Treatment How to access health informa tion online Indication:BMI 34.0-34.9,adult Start:16-Apr-2017 Instruction Type:Patient Education How to access health informa tion online - Detail Indication:BMI 34.0-34.9,adult Start:16-Apr-2017 Instruction Type:Patient Education Patient Instructions Indication:BMI 34.0-34.9,adult Start:16-Apr-2017 Instruction Type:Provider Instructions for Treatment How to access health informa tion online Indication:Non-smoker Start:15-Jan-2017 Instruction Type:Patient Education How to access health informa tion online - Detail Indication:Non-smoker Start:15-Jan-2017 Instruction Type:Patient Education Patient Instructions Indication:Non-smoker Start:15-Jan-2017 Instruction Type:Provider Instructions for Treatment How to access health informa tion online Indication:BMI 35.0-35.9,adult Start:15-Dec-2016 Instruction Type:Patient Education How to access health informa tion online - Detail Indication:BMI 35.0-35.9,adult Start:15-Dec-2016 Instruction Type:Patient Education Patient Instructions Indication:BMI 35.0-35.9,adult Start:15-Dec-2016 Instruction Type:Provider Instructions for Treatment How to access health informa tion online Indication:Chronic asthma, unspecified asthma severity, uncomplicated Start:12-Sep-2016 Instruction Type:Patient Education How to access health informa tion online - Detail Indication:Chronic asthma, unspecified asthma severity, uncomplicated Start:12-Sep-2016 Instruction Type:Patient Education Patient Instructions Indication:Chronic asthma, unspecified asthma severity, uncomplicated Start:12-Sep-2016 Instruction Type:Provider Instructions for Treatment How to access health informa tion online Indication:Acute asthma flare Start:08-Sep-2016 Instruction Type:Patient Education How to access health informa tion online - Detail Indication:Acute asthma flare Start:08-Sep-2016 Instruction Type:Patient Education Patient Instructions Indication:Acute asthma flare Start:08-Sep-2016 Instruction Type:Provider Instructions for Treatment How to access health informa tion online Indication:Acute asthma flare Start:01-Sep-2016 Instruction Type:Patient Education How to access health informa tion online - Detail Indication:Acute asthma flare Start:01-Sep-2016 Instruction Type:Patient Education Patient Instructions Indication:Acute asthma flare Start:01-Sep-2016 Instruction Type:Provider Instructions for Treatment How to access health informa tion online Indication:Non-smoker Start:25-Aug-2016 Instruction Type:Patient Education How to access health informa tion online - Detail Indication:Non-smoker Start:25-Aug-2016 Instruction Type:Patient Education Patient Instructions Indication:Non-smoker Start:25-Aug-2016 Instruction Type:Provider Instructions for Treatment How to access health informa tion online Indication:BMI 34.0-34.9,adult Start:21-Jul-2016 Instruction Type:Patient Education How to access health informa tion online - Detail Indication:BMI 34.0-34.9,adult Start:21-Jul-2016 Instruction Type:Patient Education Patient Instructions Indication:BMI 34.0-34.9,adult Start:21-Jul-2016 Instruction Type:Provider Instructions for Treatment How to access health informa tion online Indication:Non-smoker Start:15-Apr-2016 Instruction Type:Patient Education How to access health informa tion online - Detail Indication:Non-smoker Start:15-Apr-2016 Instruction Type:Patient Education Patient Instructions Indication:Non-smoker Start:15-Apr-2016 Instruction Type:Provider Instructions for Treatment How to access health informa tion online Indication:Non-smoker Start:13-Mar-2016 Instruction Type:Patient Education How to access health informa tion online - Detail Indication:Non-smoker Start:13-Mar-2016 Instruction Type:Patient Education Patient Instructions Indication:Non-smoker Start:13-Mar-2016 Instruction Type:Provider Instructions for Treatment How to access health informa tion online Indication:Hypertension Start:07-Feb-2016 Instruction Type:Patient Education How to access health informa tion online - Detail Indication:Hypertension Start:07-Feb-2016 Instruction Type:Patient Education Patient Instructions Indication:Hypertension Start:07-Feb-2016 Instruction Type:Provider Instructions for Treatment How to access health informa tion online Indication:Sore throat Start:23-Jan-2016 Instruction Type:Patient Education How to access health informa tion online - Detail Indication:Sore throat Start:23-Jan-2016 Instruction Type:Patient Education Patient Instructions Indication:Sore throat Start:23-Jan-2016 Instruction Type:Provider Instructions for Treatment How to access health informa tion online Indication:Non-smoker Start:08-Jan-2016 Instruction Type:Patient Education How to access health informa tion online - Detail Indication:Non-smoker Start:08-Jan-2016 Instruction Type:Patient Education Patient Instructions Indication:Non-smoker Start:08-Jan-2016 Instruction Type:Provider Instructions for Treatment [facility]; [facility] Work Phone: Instructions* Name Dates Details Patient Instructions Indication:BMI 34.0-34.9,adult Start:28-Dec-2020 Instruction Type:Provider Instructions for Treatment How to Access Health Informa tion Online using Patient Portal and [employer] Apps Indication:BMI 34.0-34.9,adult Start:28-Dec-2020 Instruction Type:Patient Education Patient Instructions Indication:Non-smoker Start:01-Nov-2020 Instruction Type:Provider Instructions for Treatment How to Access Health Informa tion Online using Patient Portal and [employer] Apps Indication:Non-smoker Start:01-Nov-2020 Instruction Type:Patient Education Patient Instructions Indication:Non-smoker Start:09-Aug-2020 Instruction Type:Provider Instructions for Treatment How to Access Health Informa tion Online using Patient Portal and [employer] Apps Indication:Non-smoker Start:09-Aug-2020 Instruction Type:Patient Education How to Access Health Informa tion Online using Patient Portal and [employer] Apps Indication:Non-smoker Start:06-Aug-2020 Instruction Type:Patient Education Patient Instructions Indication:Non-smoker Start:06-Aug-2020 Instruction Type:Provider Instructions for Treatment How to Access Health Informa tion Online using Patient Portal and [employer] Apps Indication:Non-smoker Start:09-Jul-2020 Instruction Type:Patient Education Patient Instructions Indication:Non-smoker Start:09-Jul-2020 Instruction Type:Provider Instructions for Treatment How to access health informa tion online Indication:Non-smoker Start:08-Jul-2019 Instruction Type:Patient Education How to access health informa tion online - Detail Indication:Non-smoker Start:08-Jul-2019 Instruction Type:Patient Education Patient Instructions Indication:Non-smoker Start:08-Jul-2019 Instruction Type:Provider Instructions for Treatment How to access health informa tion online Indication:Non-smoker Start:28-Apr-2019 Instruction Type:Patient Education How to access health informa tion online - Detail Indication:Non-smoker Start:28-Apr-2019 Instruction Type:Patient Education Patient Instructions Indication:Non-smoker Start:28-Apr-2019 Instruction Type:Provider Instructions for Treatment How to access health informa tion online Indication:Abnormal glucose tolerance test Start:10-Mar-2019 Instruction Type:Patient Education How to access health informa tion online - Detail Indication:Abnormal glucose tolerance test Start:10-Mar-2019 Instruction Type:Patient Education Patient Instructions Indication:Abnormal glucose tolerance test Start:10-Mar-2019 Instruction Type:Provider Instructions for Treatment How to access health informa tion online Indication:Abnormal glucose tolerance test Start:25-Oct-2018 Instruction Type:Patient Education How to access health informa tion online - Detail Indication:Abnormal glucose tolerance test Start:25-Oct-2018 Instruction Type:Patient Education Patient Instructions Indication:Abnormal glucose tolerance test Start:25-Oct-2018 Instruction Type:Provider Instructions for Treatment How to access health informa tion online - Detail Indication:Bronchitis Start:27-Sep-2018 Instruction Type:Patient Education Patient Instructions Indication:BMI 36.0-36.9,adult Start:27-Sep-2018 Instruction Type:Provider Instructions for Treatment How to access health informa tion online Indication:Non-smoker Start:21-Jun-2018 Instruction Type:Patient Education How to access health informa tion online - Detail Indication:Non-smoker Start:21-Jun-2018 Instruction Type:Patient Education Patient Instructions Indication:Non-smoker Start:21-Jun-2018 Instruction Type:Provider Instructions for Treatment How to access health informa tion online Indication:Non-smoker Start:10-May-2018 Instruction Type:Patient Education How to access health informa tion online - Detail Indication:Non-smoker Start:10-May-2018 Instruction Type:Patient Education Patient Instructions Indication:BMI 35.0-35.9,adult Start:10-May-2018 Instruction Type:Provider Instructions for Treatment How to access health informa tion online Indication:Non-smoker Start:14-Dec-2017 Instruction Type:Patient Education How to access health informa tion online - Detail Indication:Non-smoker Start:14-Dec-2017 Instruction Type:Patient Education Patient Instructions Indication:Non-smoker Start:14-Dec-2017 Instruction Type:Provider Instructions for Treatment How to access health informa tion online Indication:Cough Start:23-Jun-2017 Instruction Type:Patient Education How to access health informa tion online - Detail Indication:Cough Start:23-Jun-2017 Instruction Type:Patient Education Patient Instructions Indication:Cough Start:23-Jun-2017 Instruction Type:Provider Instructions for Treatment How to access health informa tion online Indication:Hyperlipidemia, mild Start:08-Jun-2017 Instruction Type:Patient Education How to access health informa tion online - Detail Indication:Hyperlipidemia, mild Start:08-Jun-2017 Instruction Type:Patient Education Patient Instructions Indication:Hyperlipidemia, mild Start:08-Jun-2017 Instruction Type:Provider Instructions for Treatment How to access health informa tion online Indication:Non-smoker Start:28-Apr-2017 Instruction Type:Patient Education How to access health informa tion online - Detail Indication:Non-smoker Start:28-Apr-2017 Instruction Type:Patient Education Patient Instructions Indication:Non-smoker Start:28-Apr-2017 Instruction Type:Provider Instructions for Treatment How to access health informa tion online Indication:BMI 34.0-34.9,adult Start:16-Apr-2017 Instruction Type:Patient Education How to access health informa tion online - Detail Indication:BMI 34.0-34.9,adult Start:16-Apr-2017 Instruction Type:Patient Education Patient Instructions Indication:BMI 34.0-34.9,adult Start:16-Apr-2017 Instruction Type:Provider Instructions for Treatment How to access health informa tion online Indication:Non-smoker Start:15-Jan-2017 Instruction Type:Patient Education How to access health informa tion online - Detail Indication:Non-smoker Start:15-Jan-2017 Instruction Type:Patient Education Patient Instructions Indication:Non-smoker Start:15-Jan-2017 Instruction Type:Provider Instructions for Treatment How to access health informa tion online Indication:BMI 35.0-35.9,adult Start:15-Dec-2016 Instruction Type:Patient Education How to access health informa tion online - Detail Indication:BMI 35.0-35.9,adult Start:15-Dec-2016 Instruction Type:Patient Education Patient Instructions Indication:BMI 35.0-35.9,adult Start:15-Dec-2016 Instruction Type:Provider Instructions for Treatment How to access health informa tion online Indication:Chronic asthma, unspecified asthma severity, uncomplicated Start:12-Sep-2016 Instruction Type:Patient Education How to access health informa tion online - Detail Indication:Chronic asthma, unspecified asthma severity, uncomplicated Start:12-Sep-2016 Instruction Type:Patient Education Patient Instructions Indication:Chronic asthma, unspecified asthma severity, uncomplicated Start:12-Sep-2016 Instruction Type:Provider Instructions for Treatment How to access health informa tion online Indication:Acute asthma flare Start:08-Sep-2016 Instruction Type:Patient Education How to access health informa tion online - Detail Indication:Acute asthma flare Start:08-Sep-2016 Instruction Type:Patient Education Patient Instructions Indication:Acute asthma flare Start:08-Sep-2016 Instruction Type:Provider Instructions for Treatment How to access health informa tion online Indication:Acute asthma flare Start:01-Sep-2016 Instruction Type:Patient Education How to access health informa tion online - Detail Indication:Acute asthma flare Start:01-Sep-2016 Instruction Type:Patient Education Patient Instructions Indication:Acute asthma flare Start:01-Sep-2016 Instruction Type:Provider Instructions for Treatment How to access health informa tion online Indication:Non-smoker Start:25-Aug-2016 Instruction Type:Patient Education How to access health informa tion online - Detail Indication:Non-smoker Start:25-Aug-2016 Instruction Type:Patient Education Patient Instructions Indication:Non-smoker Start:25-Aug-2016 Instruction Type:Provider Instructions for Treatment How to access health informa tion online Indication:BMI 34.0-34.9,adult Start:21-Jul-2016 Instruction Type:Patient Education How to access health informa tion online - Detail Indication:BMI 34.0-34.9,adult Start:21-Jul-2016 Instruction Type:Patient Education Patient Instructions Indication:BMI 34.0-34.9,adult Start:21-Jul-2016 Instruction Type:Provider Instructions for Treatment How to access health informa tion online Indication:Non-smoker Start:15-Apr-2016 Instruction Type:Patient Education How to access health informa tion online - Detail Indication:Non-smoker Start:15-Apr-2016 Instruction Type:Patient Education Patient Instructions Indication:Non-smoker Start:15-Apr-2016 Instruction Type:Provider Instructions for Treatment How to access health informa tion online Indication:Non-smoker Start:13-Mar-2016 Instruction Type:Patient Education How to access health informa tion online - Detail Indication:Non-smoker Start:13-Mar-2016 Instruction Type:Patient Education Patient Instructions Indication:Non-smoker Start:13-Mar-2016 Instruction Type:Provider Instructions for Treatment How to access health informa tion online Indication:Hypertension Start:07-Feb-2016 Instruction Type:Patient Education How to access health informa tion online - Detail Indication:Hypertension Start:07-Feb-2016 Instruction Type:Patient Education Patient Instructions Indication:Hypertension Start:07-Feb-2016 Instruction Type:Provider Instructions for Treatment How to access health informa tion online Indication:Sore throat Start:23-Jan-2016 Instruction Type:Patient Education How to access health informa tion online - Detail Indication:Sore throat Start:23-Jan-2016 Instruction Type:Patient Education Patient Instructions Indication:Sore throat Start:23-Jan-2016 Instruction Type:Provider Instructions for Treatment How to access health informa tion online Indication:Non-smoker Start:08-Jan-2016 Instruction Type:Patient Education How to access health informa tion online - Detail Indication:Non-smoker Start:08-Jan-2016 Instruction Type:Patient Education Patient Instructions Indication:Non-smoker Start:08-Jan-2016 Instruction Type:Provider Instructions for Treatment [facility]; [facility] Work Phone: Instructions* Name Dates Details Patient Instructions Indication:BMI 34.0-34.9,adult Start:28-Dec-2020 Instruction Type:Provider Instructions for Treatment How to Access Health Informa tion Online using Patient Portal and [employer]rd [employer] Apps Indication:BMI 34.0-34.9,adult Start:28-Dec-2020 Instruction Type:Patient Education Patient Instructions Indication:Non-smoker Start:01-Nov-2020 Instruction Type:Provider Instructions for Treatment How to Access Health Informa tion Online using Patient Portal and [employer]rd [employer] Apps Indication:Non-smoker Start:01-Nov-2020 Instruction Type:Patient Education Patient Instructions Indication:Non-smoker Start:09-Aug-2020 Instruction Type:Provider Instructions for Treatment How to Access Health Informa tion Online using Patient Portal and [employer]rd [employer] Apps Indication:Non-smoker Start:09-Aug-2020 Instruction Type:Patient Education How to Access Health Informa tion Online using Patient Portal and [employer]rd [employer] Apps Indication:Non-smoker Start:06-Aug-2020 Instruction Type:Patient Education Patient Instructions Indication:Non-smoker Start:06-Aug-2020 Instruction Type:Provider Instructions for Treatment How to Access Health Informa tion Online using Patient Portal and [employer]rd [employer] Apps Indication:Non-smoker Start:09-Jul-2020 Instruction Type:Patient Education Patient Instructions Indication:Non-smoker Start:09-Jul-2020 Instruction Type:Provider Instructions for Treatment How to access health informa tion online Indication:Non-smoker Start:08-Jul-2019 Instruction Type:Patient Education How to access health informa tion online - Detail Indication:Non-smoker Start:08-Jul-2019 Instruction Type:Patient Education Patient Instructions Indication:Non-smoker Start:08-Jul-2019 Instruction Type:Provider Instructions for Treatment How to access health informa tion online Indication:Non-smoker Start:28-Apr-2019 Instruction Type:Patient Education How to access health informa tion online - Detail Indication:Non-smoker Start:28-Apr-2019 Instruction Type:Patient Education Patient Instructions Indication:Non-smoker Start:28-Apr-2019 Instruction Type:Provider Instructions for Treatment How to access health informa tion online Indication:Abnormal glucose tolerance test Start:10-Mar-2019 Instruction Type:Patient Education How to access health informa tion online - Detail Indication:Abnormal glucose tolerance test Start:10-Mar-2019 Instruction Type:Patient Education Patient Instructions Indication:Abnormal glucose tolerance test Start:10-Mar-2019 Instruction Type:Provider Instructions for Treatment How to access health informa tion online Indication:Abnormal glucose tolerance test Start:25-Oct-2018 Instruction Type:Patient Education How to access health informa tion online - Detail Indication:Abnormal glucose tolerance test Start:25-Oct-2018 Instruction Type:Patient Education Patient Instructions Indication:Abnormal glucose tolerance test Start:25-Oct-2018 Instruction Type:Provider Instructions for Treatment How to access health informa tion online - Detail Indication:Bronchitis Start:27-Sep-2018 Instruction Type:Patient Education Patient Instructions Indication:BMI 36.0-36.9,adult Start:27-Sep-2018 Instruction Type:Provider Instructions for Treatment How to access health informa tion online Indication:Non-smoker Start:21-Jun-2018 Instruction Type:Patient Education How to access health informa tion online - Detail Indication:Non-smoker Start:21-Jun-2018 Instruction Type:Patient Education Patient Instructions Indication:Non-smoker Start:21-Jun-2018 Instruction Type:Provider Instructions for Treatment How to access health informa tion online Indication:Non-smoker Start:10-May-2018 Instruction Type:Patient Education How to access health informa tion online - Detail Indication:Non-smoker Start:10-May-2018 Instruction Type:Patient Education Patient Instructions Indication:BMI 35.0-35.9,adult Start:10-May-2018 Instruction Type:Provider Instructions for Treatment How to access health informa tion online Indication:Non-smoker Start:14-Dec-2017 Instruction Type:Patient Education How to access health informa tion online - Detail Indication:Non-smoker Start:14-Dec-2017 Instruction Type:Patient Education Patient Instructions Indication:Non-smoker Start:14-Dec-2017 Instruction Type:Provider Instructions for Treatment How to access health informa tion online Indication:Cough Start:23-Jun-2017 Instruction Type:Patient Education How to access health informa tion online - Detail Indication:Cough Start:23-Jun-2017 Instruction Type:Patient Education Patient Instructions Indication:Cough Start:23-Jun-2017 Instruction Type:Provider Instructions for Treatment How to access health informa tion online Indication:Hyperlipidemia, mild Start:08-Jun-2017 Instruction Type:Patient Education How to access health informa tion online - Detail Indication:Hyperlipidemia, mild Start:08-Jun-2017 Instruction Type:Patient Education Patient Instructions Indication:Hyperlipidemia, mild Start:08-Jun-2017 Instruction Type:Provider Instructions for Treatment How to access health informa tion online Indication:Non-smoker Start:28-Apr-2017 Instruction Type:Patient Education How to access health informa tion online - Detail Indication:Non-smoker Start:28-Apr-2017 Instruction Type:Patient Education Patient Instructions Indication:Non-smoker Start:28-Apr-2017 Instruction Type:Provider Instructions for Treatment How to access health informa tion online Indication:BMI 34.0-34.9,adult Start:16-Apr-2017 Instruction Type:Patient Education How to access health informa tion online - Detail Indication:BMI 34.0-34.9,adult Start:16-Apr-2017 Instruction Type:Patient Education Patient Instructions Indication:BMI 34.0-34.9,adult Start:16-Apr-2017 Instruction Type:Provider Instructions for Treatment How to access health informa tion online Indication:Non-smoker Start:15-Jan-2017 Instruction Type:Patient Education How to access health informa tion online - Detail Indication:Non-smoker Start:15-Jan-2017 Instruction Type:Patient Education Patient Instructions Indication:Non-smoker Start:15-Jan-2017 Instruction Type:Provider Instructions for Treatment How to access health informa tion online Indication:BMI 35.0-35.9,adult Start:15-Dec-2016 Instruction Type:Patient Education How to access health informa tion online - Detail Indication:BMI 35.0-35.9,adult Start:15-Dec-2016 Instruction Type:Patient Education Patient Instructions Indication:BMI 35.0-35.9,adult Start:15-Dec-2016 Instruction Type:Provider Instructions for Treatment How to access health informa tion online Indication:Chronic asthma, unspecified asthma severity, uncomplicated Start:12-Sep-2016 Instruction Type:Patient Education How to access health informa tion online - Detail Indication:Chronic asthma, unspecified asthma severity, uncomplicated Start:12-Sep-2016 Instruction Type:Patient Education Patient Instructions Indication:Chronic asthma, unspecified asthma severity, uncomplicated Start:12-Sep-2016 Instruction Type:Provider Instructions for Treatment How to access health informa tion online Indication:Acute asthma flare Start:08-Sep-2016 Instruction Type:Patient Education How to access health informa tion online - Detail Indication:Acute asthma flare Start:08-Sep-2016 Instruction Type:Patient Education Patient Instructions Indication:Acute asthma flare Start:08-Sep-2016 Instruction Type:Provider Instructions for Treatment How to access health informa tion online Indication:Acute asthma flare Start:01-Sep-2016 Instruction Type:Patient Education How to access health informa tion online - Detail Indication:Acute asthma flare Start:01-Sep-2016 Instruction Type:Patient Education Patient Instructions Indication:Acute asthma flare Start:01-Sep-2016 Instruction Type:Provider Instructions for Treatment How to access health informa tion online Indication:Non-smoker Start:25-Aug-2016 Instruction Type:Patient Education How to access health informa tion online - Detail Indication:Non-smoker Start:25-Aug-2016 Instruction Type:Patient Education Patient Instructions Indication:Non-smoker Start:25-Aug-2016 Instruction Type:Provider Instructions for Treatment How to access health informa tion online Indication:BMI 34.0-34.9,adult Start:21-Jul-2016 Instruction Type:Patient Education How to access health informa tion online - Detail Indication:BMI 34.0-34.9,adult Start:21-Jul-2016 Instruction Type:Patient Education Patient Instructions Indication:BMI 34.0-34.9,adult Start:21-Jul-2016 Instruction Type:Provider Instructions for Treatment How to access health informa tion online Indication:Non-smoker Start:15-Apr-2016 Instruction Type:Patient Education How to access health informa tion online - Detail Indication:Non-smoker Start:15-Apr-2016 Instruction Type:Patient Education Patient Instructions Indication:Non-smoker Start:15-Apr-2016 Instruction Type:Provider Instructions for Treatment How to access health informa tion online Indication:Non-smoker Start:13-Mar-2016 Instruction Type:Patient Education How to access health informa tion online - Detail Indication:Non-smoker Start:13-Mar-2016 Instruction Type:Patient Education Patient Instructions Indication:Non-smoker Start:13-Mar-2016 Instruction Type:Provider Instructions for Treatment How to access health informa tion online Indication:Hypertension Start:07-Feb-2016 Instruction Type:Patient Education How to access health informa tion online - Detail Indication:Hypertension Start:07-Feb-2016 Instruction Type:Patient Education Patient Instructions Indication:Hypertension Start:07-Feb-2016 Instruction Type:Provider Instructions for Treatment How to access health informa tion online Indication:Sore throat Start:23-Jan-2016 Instruction Type:Patient Education How to access health informa tion online - Detail Indication:Sore throat Start:23-Jan-2016 Instruction Type:Patient Education Patient Instructions Indication:Sore throat Start:23-Jan-2016 Instruction Type:Provider Instructions for Treatment How to access health informa tion online Indication:Non-smoker Start:08-Jan-2016 Instruction Type:Patient Education How to access health informa tion online - Detail Indication:Non-smoker Start:08-Jan-2016 Instruction Type:Patient Education Patient Instructions Indication:Non-smoker Start:08-Jan-2016 Instruction Type:Provider Instructions for Treatment [facility]; [facility] Work Phone: Instructions* Name Dates Details Patient Instructions Indication:BMI 37.0-37.9, adult Start:06-May-2021 Instruction Type:Provider Instructions for Treatment How to Access Health Informa tion Online using Patient Portal and [employer]rd [employer] Apps Indication:BMI 37.0-37.9, adult Start:06-May-2021 Instruction Type:Patient Education Patient Instructions Indication:BMI 34.0-34.9,adult Start:28-Dec-2020 Instruction Type:Provider Instructions for Treatment How to Access Health Informa tion Online using Patient Portal and [employer]rd [employer] Apps Indication:BMI 34.0-34.9,adult Start:28-Dec-2020 Instruction Type:Patient Education Patient Instructions Indication:Non-smoker Start:01-Nov-2020 Instruction Type:Provider Instructions for Treatment How to Access Health Informa tion Online using Patient Portal and [employer] Apps Indication:Non-smoker Start:01-Nov-2020 Instruction Type:Patient Education Patient Instructions Indication:Non-smoker Start:09-Aug-2020 Instruction Type:Provider Instructions for Treatment How to Access Health Informa tion Online using Patient Portal and [employer] Apps Indication:Non-smoker Start:09-Aug-2020 Instruction Type:Patient Education How to Access Health Informa tion Online using Patient Portal and [employer] Apps Indication:Non-smoker Start:06-Aug-2020 Instruction Type:Patient Education Patient Instructions Indication:Non-smoker Start:06-Aug-2020 Instruction Type:Provider Instructions for Treatment How to Access Health Informa tion Online using Patient Portal and [employer] Apps Indication:Non-smoker Start:09-Jul-2020 Instruction Type:Patient Education Patient Instructions Indication:Non-smoker Start:09-Jul-2020 Instruction Type:Provider Instructions for Treatment How to access health informa tion online Indication:Non-smoker Start:08-Jul-2019 Instruction Type:Patient Education How to access health informa tion online - Detail Indication:Non-smoker Start:08-Jul-2019 Instruction Type:Patient Education Patient Instructions Indication:Non-smoker Start:08-Jul-2019 Instruction Type:Provider Instructions for Treatment How to access health informa tion online Indication:Non-smoker Start:28-Apr-2019 Instruction Type:Patient Education How to access health informa tion online - Detail Indication:Non-smoker Start:28-Apr-2019 Instruction Type:Patient Education Patient Instructions Indication:Non-smoker Start:28-Apr-2019 Instruction Type:Provider Instructions for Treatment How to access health informa tion online Indication:Abnormal glucose tolerance test Start:10-Mar-2019 Instruction Type:Patient Education How to access health informa tion online - Detail Indication:Abnormal glucose tolerance test Start:10-Mar-2019 Instruction Type:Patient Education Patient Instructions Indication:Abnormal glucose tolerance test Start:10-Mar-2019 Instruction Type:Provider Instructions for Treatment How to access health informa tion online Indication:Abnormal glucose tolerance test Start:25-Oct-2018 Instruction Type:Patient Education How to access health informa tion online - Detail Indication:Abnormal glucose tolerance test Start:25-Oct-2018 Instruction Type:Patient Education Patient Instructions Indication:Abnormal glucose tolerance test Start:25-Oct-2018 Instruction Type:Provider Instructions for Treatment How to access health informa tion online - Detail Indication:Bronchitis Start:27-Sep-2018 Instruction Type:Patient Education Patient Instructions Indication:BMI 36.0-36.9,adult Start:27-Sep-2018 Instruction Type:Provider Instructions for Treatment How to access health informa tion online Indication:Non-smoker Start:21-Jun-2018 Instruction Type:Patient Education How to access health informa tion online - Detail Indication:Non-smoker Start:21-Jun-2018 Instruction Type:Patient Education Patient Instructions Indication:Non-smoker Start:21-Jun-2018 Instruction Type:Provider Instructions for Treatment How to access health informa tion online Indication:Non-smoker Start:10-May-2018 Instruction Type:Patient Education How to access health informa tion online - Detail Indication:Non-smoker Start:10-May-2018 Instruction Type:Patient Education Patient Instructions Indication:BMI 35.0-35.9,adult Start:10-May-2018 Instruction Type:Provider Instructions for Treatment How to access health informa tion online Indication:Non-smoker Start:14-Dec-2017 Instruction Type:Patient Education How to access health informa tion online - Detail Indication:Non-smoker Start:14-Dec-2017 Instruction Type:Patient Education Patient Instructions Indication:Non-smoker Start:14-Dec-2017 Instruction Type:Provider Instructions for Treatment How to access health informa tion online Indication:Cough Start:23-Jun-2017 Instruction Type:Patient Education How to access health informa tion online - Detail Indication:Cough Start:23-Jun-2017 Instruction Type:Patient Education Patient Instructions Indication:Cough Start:23-Jun-2017 Instruction Type:Provider Instructions for Treatment How to access health informa tion online Indication:Hyperlipidemia, mild Start:08-Jun-2017 Instruction Type:Patient Education How to access health informa tion online - Detail Indication:Hyperlipidemia, mild Start:08-Jun-2017 Instruction Type:Patient Education Patient Instructions Indication:Hyperlipidemia, mild Start:08-Jun-2017 Instruction Type:Provider Instructions for Treatment How to access health informa tion online Indication:Non-smoker Start:28-Apr-2017 Instruction Type:Patient Education How to access health informa tion online - Detail Indication:Non-smoker Start:28-Apr-2017 Instruction Type:Patient Education Patient Instructions Indication:Non-smoker Start:28-Apr-2017 Instruction Type:Provider Instructions for Treatment How to access health informa tion online Indication:BMI 34.0-34.9,adult Start:16-Apr-2017 Instruction Type:Patient Education How to access health informa tion online - Detail Indication:BMI 34.0-34.9,adult Start:16-Apr-2017 Instruction Type:Patient Education Patient Instructions Indication:BMI 34.0-34.9,adult Start:16-Apr-2017 Instruction Type:Provider Instructions for Treatment How to access health informa tion online Indication:Non-smoker Start:15-Jan-2017 Instruction Type:Patient Education How to access health informa tion online - Detail Indication:Non-smoker Start:15-Jan-2017 Instruction Type:Patient Education Patient Instructions Indication:Non-smoker Start:15-Jan-2017 Instruction Type:Provider Instructions for Treatment How to access health informa tion online Indication:BMI 35.0-35.9,adult Start:15-Dec-2016 Instruction Type:Patient Education How to access health informa tion online - Detail Indication:BMI 35.0-35.9,adult Start:15-Dec-2016 Instruction Type:Patient Education Patient Instructions Indication:BMI 35.0-35.9,adult Start:15-Dec-2016 Instruction Type:Provider Instructions for Treatment How to access health informa tion online Indication:Chronic asthma, unspecified asthma severity, uncomplicated Start:12-Sep-2016 Instruction Type:Patient Education How to access health informa tion online - Detail Indication:Chronic asthma, unspecified asthma severity, uncomplicated Start:12-Sep-2016 Instruction Type:Patient Education Patient Instructions Indication:Chronic asthma, unspecified asthma severity, uncomplicated Start:12-Sep-2016 Instruction Type:Provider Instructions for Treatment How to access health informa tion online Indication:Acute asthma flare Start:08-Sep-2016 Instruction Type:Patient Education How to access health informa tion online - Detail Indication:Acute asthma flare Start:08-Sep-2016 Instruction Type:Patient Education Patient Instructions Indication:Acute asthma flare Start:08-Sep-2016 Instruction Type:Provider Instructions for Treatment How to access health informa tion online Indication:Acute asthma flare Start:01-Sep-2016 Instruction Type:Patient Education How to access health informa tion online - Detail Indication:Acute asthma flare Start:01-Sep-2016 Instruction Type:Patient Education Patient Instructions Indication:Acute asthma flare Start:01-Sep-2016 Instruction Type:Provider Instructions for Treatment How to access health informa tion online Indication:Non-smoker Start:25-Aug-2016 Instruction Type:Patient Education How to access health informa tion online - Detail Indication:Non-smoker Start:25-Aug-2016 Instruction Type:Patient Education Patient Instructions Indication:Non-smoker Start:25-Aug-2016 Instruction Type:Provider Instructions for Treatment How to access health informa tion online Indication:BMI 34.0-34.9,adult Start:21-Jul-2016 Instruction Type:Patient Education How to access health informa tion online - Detail Indication:BMI 34.0-34.9,adult Start:21-Jul-2016 Instruction Type:Patient Education Patient Instructions Indication:BMI 34.0-34.9,adult Start:21-Jul-2016 Instruction Type:Provider Instructions for Treatment How to access health informa tion online Indication:Non-smoker Start:15-Apr-2016 Instruction Type:Patient Education How to access health informa tion online - Detail Indication:Non-smoker Start:15-Apr-2016 Instruction Type:Patient Education Patient Instructions Indication:Non-smoker Start:15-Apr-2016 Instruction Type:Provider Instructions for Treatment How to access health informa tion online Indication:Non-smoker Start:13-Mar-2016 Instruction Type:Patient Education How to access health informa tion online - Detail Indication:Non-smoker Start:13-Mar-2016 Instruction Type:Patient Education Patient Instructions Indication:Non-smoker Start:13-Mar-2016 Instruction Type:Provider Instructions for Treatment How to access health informa tion online Indication:Hypertension Start:07-Feb-2016 Instruction Type:Patient Education How to access health informa tion online - Detail Indication:Hypertension Start:07-Feb-2016 Instruction Type:Patient Education Patient Instructions Indication:Hypertension Start:07-Feb-2016 Instruction Type:Provider Instructions for Treatment How to access health informa tion online Indication:Sore throat Start:23-Jan-2016 Instruction Type:Patient Education How to access health informa tion online - Detail Indication:Sore throat Start:23-Jan-2016 Instruction Type:Patient Education Patient Instructions Indication:Sore throat Start:23-Jan-2016 Instruction Type:Provider Instructions for Treatment How to access health informa tion online Indication:Non-smoker Start:08-Jan-2016 Instruction Type:Patient Education How to access health informa tion online - Detail Indication:Non-smoker Start:08-Jan-2016 Instruction Type:Patient Education Patient Instructions Indication:Non-smoker Start:08-Jan-2016 Instruction Type:Provider Instructions for Treatment [facility]; [facility] Work Phone: Instructions* Name Dates Details Patient Instructions Indication:BMI 37.0-37.9, adult Start:06-May-2021 Instruction Type:Provider Instructions for Treatment How to Access Health Informa tion Online using Patient Portal and [employer]rd [employer] Apps Indication:BMI 37.0-37.9, adult Start:06-May-2021 Instruction Type:Patient Education Patient Instructions Indication:BMI 34.0-34.9,adult Start:28-Dec-2020 Instruction Type:Provider Instructions for Treatment How to Access Health Informa tion Online using Patient Portal and [employer]rd [employer] Apps Indication:BMI 34.0-34.9,adult Start:28-Dec-2020 Instruction Type:Patient Education Patient Instructions Indication:Non-smoker Start:01-Nov-2020 Instruction Type:Provider Instructions for Treatment How to Access Health Informa tion Online using Patient Portal and [employer] Apps Indication:Non-smoker Start:01-Nov-2020 Instruction Type:Patient Education Patient Instructions Indication:Non-smoker Start:09-Aug-2020 Instruction Type:Provider Instructions for Treatment How to Access Health Informa tion Online using Patient Portal and [employer] Apps Indication:Non-smoker Start:09-Aug-2020 Instruction Type:Patient Education How to Access Health Informa tion Online using Patient Portal and [employer] Apps Indication:Non-smoker Start:06-Aug-2020 Instruction Type:Patient Education Patient Instructions Indication:Non-smoker Start:06-Aug-2020 Instruction Type:Provider Instructions for Treatment How to Access Health Informa tion Online using Patient Portal and [employer] Apps Indication:Non-smoker Start:09-Jul-2020 Instruction Type:Patient Education Patient Instructions Indication:Non-smoker Start:09-Jul-2020 Instruction Type:Provider Instructions for Treatment How to access health informa tion online Indication:Non-smoker Start:08-Jul-2019 Instruction Type:Patient Education How to access health informa tion online - Detail Indication:Non-smoker Start:08-Jul-2019 Instruction Type:Patient Education Patient Instructions Indication:Non-smoker Start:08-Jul-2019 Instruction Type:Provider Instructions for Treatment How to access health informa tion online Indication:Non-smoker Start:28-Apr-2019 Instruction Type:Patient Education How to access health informa tion online - Detail Indication:Non-smoker Start:28-Apr-2019 Instruction Type:Patient Education Patient Instructions Indication:Non-smoker Start:28-Apr-2019 Instruction Type:Provider Instructions for Treatment How to access health informa tion online Indication:Abnormal glucose tolerance test Start:10-Mar-2019 Instruction Type:Patient Education How to access health informa tion online - Detail Indication:Abnormal glucose tolerance test Start:10-Mar-2019 Instruction Type:Patient Education Patient Instructions Indication:Abnormal glucose tolerance test Start:10-Mar-2019 Instruction Type:Provider Instructions for Treatment How to access health informa tion online Indication:Abnormal glucose tolerance test Start:25-Oct-2018 Instruction Type:Patient Education How to access health informa tion online - Detail Indication:Abnormal glucose tolerance test Start:25-Oct-2018 Instruction Type:Patient Education Patient Instructions Indication:Abnormal glucose tolerance test Start:25-Oct-2018 Instruction Type:Provider Instructions for Treatment How to access health informa tion online - Detail Indication:Bronchitis Start:27-Sep-2018 Instruction Type:Patient Education Patient Instructions Indication:BMI 36.0-36.9,adult Start:27-Sep-2018 Instruction Type:Provider Instructions for Treatment How to access health informa tion online Indication:Non-smoker Start:21-Jun-2018 Instruction Type:Patient Education How to access health informa tion online - Detail Indication:Non-smoker Start:21-Jun-2018 Instruction Type:Patient Education Patient Instructions Indication:Non-smoker Start:21-Jun-2018 Instruction Type:Provider Instructions for Treatment How to access health informa tion online Indication:Non-smoker Start:10-May-2018 Instruction Type:Patient Education How to access health informa tion online - Detail Indication:Non-smoker Start:10-May-2018 Instruction Type:Patient Education Patient Instructions Indication:BMI 35.0-35.9,adult Start:10-May-2018 Instruction Type:Provider Instructions for Treatment How to access health informa tion online Indication:Non-smoker Start:14-Dec-2017 Instruction Type:Patient Education How to access health informa tion online - Detail Indication:Non-smoker Start:14-Dec-2017 Instruction Type:Patient Education Patient Instructions Indication:Non-smoker Start:14-Dec-2017 Instruction Type:Provider Instructions for Treatment How to access health informa tion online Indication:Cough Start:23-Jun-2017 Instruction Type:Patient Education How to access health informa tion online - Detail Indication:Cough Start:23-Jun-2017 Instruction Type:Patient Education Patient Instructions Indication:Cough Start:23-Jun-2017 Instruction Type:Provider Instructions for Treatment How to access health informa tion online Indication:Hyperlipidemia, mild Start:08-Jun-2017 Instruction Type:Patient Education How to access health informa tion online - Detail Indication:Hyperlipidemia, mild Start:08-Jun-2017 Instruction Type:Patient Education Patient Instructions Indication:Hyperlipidemia, mild Start:08-Jun-2017 Instruction Type:Provider Instructions for Treatment How to access health informa tion online Indication:Non-smoker Start:28-Apr-2017 Instruction Type:Patient Education How to access health informa tion online - Detail Indication:Non-smoker Start:28-Apr-2017 Instruction Type:Patient Education Patient Instructions Indication:Non-smoker Start:28-Apr-2017 Instruction Type:Provider Instructions for Treatment How to access health informa tion online Indication:BMI 34.0-34.9,adult Start:16-Apr-2017 Instruction Type:Patient Education How to access health informa tion online - Detail Indication:BMI 34.0-34.9,adult Start:16-Apr-2017 Instruction Type:Patient Education Patient Instructions Indication:BMI 34.0-34.9,adult Start:16-Apr-2017 Instruction Type:Provider Instructions for Treatment How to access health informa tion online Indication:Non-smoker Start:15-Jan-2017 Instruction Type:Patient Education How to access health informa tion online - Detail Indication:Non-smoker Start:15-Jan-2017 Instruction Type:Patient Education Patient Instructions Indication:Non-smoker Start:15-Jan-2017 Instruction Type:Provider Instructions for Treatment How to access health informa tion online Indication:BMI 35.0-35.9,adult Start:15-Dec-2016 Instruction Type:Patient Education How to access health informa tion online - Detail Indication:BMI 35.0-35.9,adult Start:15-Dec-2016 Instruction Type:Patient Education Patient Instructions Indication:BMI 35.0-35.9,adult Start:15-Dec-2016 Instruction Type:Provider Instructions for Treatment How to access health informa tion online Indication:Chronic asthma, unspecified asthma severity, uncomplicated Start:12-Sep-2016 Instruction Type:Patient Education How to access health informa tion online - Detail Indication:Chronic asthma, unspecified asthma severity, uncomplicated Start:12-Sep-2016 Instruction Type:Patient Education Patient Instructions Indication:Chronic asthma, unspecified asthma severity, uncomplicated Start:12-Sep-2016 Instruction Type:Provider Instructions for Treatment How to access health informa tion online Indication:Acute asthma flare Start:08-Sep-2016 Instruction Type:Patient Education How to access health informa tion online - Detail Indication:Acute asthma flare Start:08-Sep-2016 Instruction Type:Patient Education Patient Instructions Indication:Acute asthma flare Start:08-Sep-2016 Instruction Type:Provider Instructions for Treatment How to access health informa tion online Indication:Acute asthma flare Start:01-Sep-2016 Instruction Type:Patient Education How to access health informa tion online - Detail Indication:Acute asthma flare Start:01-Sep-2016 Instruction Type:Patient Education Patient Instructions Indication:Acute asthma flare Start:01-Sep-2016 Instruction Type:Provider Instructions for Treatment How to access health informa tion online Indication:Non-smoker Start:25-Aug-2016 Instruction Type:Patient Education How to access health informa tion online - Detail Indication:Non-smoker Start:25-Aug-2016 Instruction Type:Patient Education Patient Instructions Indication:Non-smoker Start:25-Aug-2016 Instruction Type:Provider Instructions for Treatment How to access health informa tion online Indication:BMI 34.0-34.9,adult Start:21-Jul-2016 Instruction Type:Patient Education How to access health informa tion online - Detail Indication:BMI 34.0-34.9,adult Start:21-Jul-2016 Instruction Type:Patient Education Patient Instructions Indication:BMI 34.0-34.9,adult Start:21-Jul-2016 Instruction Type:Provider Instructions for Treatment How to access health informa tion online Indication:Non-smoker Start:15-Apr-2016 Instruction Type:Patient Education How to access health informa tion online - Detail Indication:Non-smoker Start:15-Apr-2016 Instruction Type:Patient Education Patient Instructions Indication:Non-smoker Start:15-Apr-2016 Instruction Type:Provider Instructions for Treatment How to access health informa tion online Indication:Non-smoker Start:13-Mar-2016 Instruction Type:Patient Education How to access health informa tion online - Detail Indication:Non-smoker Start:13-Mar-2016 Instruction Type:Patient Education Patient Instructions Indication:Non-smoker Start:13-Mar-2016 Instruction Type:Provider Instructions for Treatment How to access health informa tion online Indication:Hypertension Start:07-Feb-2016 Instruction Type:Patient Education How to access health informa tion online - Detail Indication:Hypertension Start:07-Feb-2016 Instruction Type:Patient Education Patient Instructions Indication:Hypertension Start:07-Feb-2016 Instruction Type:Provider Instructions for Treatment How to access health informa tion online Indication:Sore throat Start:23-Jan-2016 Instruction Type:Patient Education How to access health informa tion online - Detail Indication:Sore throat Start:23-Jan-2016 Instruction Type:Patient Education Patient Instructions Indication:Sore throat Start:23-Jan-2016 Instruction Type:Provider Instructions for Treatment How to access health informa tion online Indication:Non-smoker Start:08-Jan-2016 Instruction Type:Patient Education How to access health informa tion online - Detail Indication:Non-smoker Start:08-Jan-2016 Instruction Type:Patient Education Patient Instructions Indication:Non-smoker Start:08-Jan-2016 Instruction Type:Provider Instructions for Treatment [facility]; [facility] Work Phone: Instructions* Name Dates Details Patient Instructions Indication:BMI 37.0-37.9, adult Start:06-May-2021 Instruction Type:Provider Instructions for Treatment How to Access Health Informa tion Online using Patient Portal and [employer]rd [employer] Apps Indication:BMI 37.0-37.9, adult Start:06-May-2021 Instruction Type:Patient Education Patient Instructions Indication:BMI 34.0-34.9,adult Start:28-Dec-2020 Instruction Type:Provider Instructions for Treatment How to Access Health Informa tion Online using Patient Portal and [employer]rd [employer] Apps Indication:BMI 34.0-34.9,adult Start:28-Dec-2020 Instruction Type:Patient Education Patient Instructions Indication:Non-smoker Start:01-Nov-2020 Instruction Type:Provider Instructions for Treatment How to Access Health Informa tion Online using Patient Portal and [employer]rd [employer] Apps Indication:Non-smoker Start:01-Nov-2020 Instruction Type:Patient Education Patient Instructions Indication:Non-smoker Start:09-Aug-2020 Instruction Type:Provider Instructions for Treatment How to Access Health Informa tion Online using Patient Portal and [employer]rd [employer] Apps Indication:Non-smoker Start:09-Aug-2020 Instruction Type:Patient Education How to Access Health Informa tion Online using Patient Portal and [employer]rd [employer] Apps Indication:Non-smoker Start:06-Aug-2020 Instruction Type:Patient Education Patient Instructions Indication:Non-smoker Start:06-Aug-2020 Instruction Type:Provider Instructions for Treatment How to Access Health Informa tion Online using Patient Portal and [employer]rd [employer] Apps Indication:Non-smoker Start:09-Jul-2020 Instruction Type:Patient Education Patient Instructions Indication:Non-smoker Start:09-Jul-2020 Instruction Type:Provider Instructions for Treatment How to access health informa tion online Indication:Non-smoker Start:08-Jul-2019 Instruction Type:Patient Education How to access health informa tion online - Detail Indication:Non-smoker Start:08-Jul-2019 Instruction Type:Patient Education Patient Instructions Indication:Non-smoker Start:08-Jul-2019 Instruction Type:Provider Instructions for Treatment How to access health informa tion online Indication:Non-smoker Start:28-Apr-2019 Instruction Type:Patient Education How to access health informa tion online - Detail Indication:Non-smoker Start:28-Apr-2019 Instruction Type:Patient Education Patient Instructions Indication:Non-smoker Start:28-Apr-2019 Instruction Type:Provider Instructions for Treatment How to access health informa tion online Indication:Abnormal glucose tolerance test Start:10-Mar-2019 Instruction Type:Patient Education How to access health informa tion online - Detail Indication:Abnormal glucose tolerance test Start:10-Mar-2019 Instruction Type:Patient Education Patient Instructions Indication:Abnormal glucose tolerance test Start:10-Mar-2019 Instruction Type:Provider Instructions for Treatment How to access health informa tion online Indication:Abnormal glucose tolerance test Start:25-Oct-2018 Instruction Type:Patient Education How to access health informa tion online - Detail Indication:Abnormal glucose tolerance test Start:25-Oct-2018 Instruction Type:Patient Education Patient Instructions Indication:Abnormal glucose tolerance test Start:25-Oct-2018 Instruction Type:Provider Instructions for Treatment How to access health informa tion online - Detail Indication:Bronchitis Start:27-Sep-2018 Instruction Type:Patient Education Patient Instructions Indication:BMI 36.0-36.9,adult Start:27-Sep-2018 Instruction Type:Provider Instructions for Treatment How to access health informa tion online Indication:Non-smoker Start:21-Jun-2018 Instruction Type:Patient Education How to access health informa tion online - Detail Indication:Non-smoker Start:21-Jun-2018 Instruction Type:Patient Education Patient Instructions Indication:Non-smoker Start:21-Jun-2018 Instruction Type:Provider Instructions for Treatment How to access health informa tion online Indication:Non-smoker Start:10-May-2018 Instruction Type:Patient Education How to access health informa tion online - Detail Indication:Non-smoker Start:10-May-2018 Instruction Type:Patient Education Patient Instructions Indication:BMI 35.0-35.9,adult Start:10-May-2018 Instruction Type:Provider Instructions for Treatment How to access health informa tion online Indication:Non-smoker Start:14-Dec-2017 Instruction Type:Patient Education How to access health informa tion online - Detail Indication:Non-smoker Start:14-Dec-2017 Instruction Type:Patient Education Patient Instructions Indication:Non-smoker Start:14-Dec-2017 Instruction Type:Provider Instructions for Treatment How to access health informa tion online Indication:Cough Start:23-Jun-2017 Instruction Type:Patient Education How to access health informa tion online - Detail Indication:Cough Start:23-Jun-2017 Instruction Type:Patient Education Patient Instructions Indication:Cough Start:23-Jun-2017 Instruction Type:Provider Instructions for Treatment How to access health informa tion online Indication:Hyperlipidemia, mild Start:08-Jun-2017 Instruction Type:Patient Education How to access health informa tion online - Detail Indication:Hyperlipidemia, mild Start:08-Jun-2017 Instruction Type:Patient Education Patient Instructions Indication:Hyperlipidemia, mild Start:08-Jun-2017 Instruction Type:Provider Instructions for Treatment How to access health informa tion online Indication:Non-smoker Start:28-Apr-2017 Instruction Type:Patient Education How to access health informa tion online - Detail Indication:Non-smoker Start:28-Apr-2017 Instruction Type:Patient Education Patient Instructions Indication:Non-smoker Start:28-Apr-2017 Instruction Type:Provider Instructions for Treatment How to access health informa tion online Indication:BMI 34.0-34.9,adult Start:16-Apr-2017 Instruction Type:Patient Education How to access health informa tion online - Detail Indication:BMI 34.0-34.9,adult Start:16-Apr-2017 Instruction Type:Patient Education Patient Instructions Indication:BMI 34.0-34.9,adult Start:16-Apr-2017 Instruction Type:Provider Instructions for Treatment How to access health informa tion online Indication:Non-smoker Start:15-Jan-2017 Instruction Type:Patient Education How to access health informa tion online - Detail Indication:Non-smoker Start:15-Jan-2017 Instruction Type:Patient Education Patient Instructions Indication:Non-smoker Start:15-Jan-2017 Instruction Type:Provider Instructions for Treatment How to access health informa tion online Indication:BMI 35.0-35.9,adult Start:15-Dec-2016 Instruction Type:Patient Education How to access health informa tion online - Detail Indication:BMI 35.0-35.9,adult Start:15-Dec-2016 Instruction Type:Patient Education Patient Instructions Indication:BMI 35.0-35.9,adult Start:15-Dec-2016 Instruction Type:Provider Instructions for Treatment How to access health informa tion online Indication:Chronic asthma, unspecified asthma severity, uncomplicated Start:12-Sep-2016 Instruction Type:Patient Education How to access health informa tion online - Detail Indication:Chronic asthma, unspecified asthma severity, uncomplicated Start:12-Sep-2016 Instruction Type:Patient Education Patient Instructions Indication:Chronic asthma, unspecified asthma severity, uncomplicated Start:12-Sep-2016 Instruction Type:Provider Instructions for Treatment How to access health informa tion online Indication:Acute asthma flare Start:08-Sep-2016 Instruction Type:Patient Education How to access health informa tion online - Detail Indication:Acute asthma flare Start:08-Sep-2016 Instruction Type:Patient Education Patient Instructions Indication:Acute asthma flare Start:08-Sep-2016 Instruction Type:Provider Instructions for Treatment How to access health informa tion online Indication:Acute asthma flare Start:01-Sep-2016 Instruction Type:Patient Education How to access health informa tion online - Detail Indication:Acute asthma flare Start:01-Sep-2016 Instruction Type:Patient Education Patient Instructions Indication:Acute asthma flare Start:01-Sep-2016 Instruction Type:Provider Instructions for Treatment How to access health informa tion online Indication:Non-smoker Start:25-Aug-2016 Instruction Type:Patient Education How to access health informa tion online - Detail Indication:Non-smoker Start:25-Aug-2016 Instruction Type:Patient Education Patient Instructions Indication:Non-smoker Start:25-Aug-2016 Instruction Type:Provider Instructions for Treatment How to access health informa tion online Indication:BMI 34.0-34.9,adult Start:21-Jul-2016 Instruction Type:Patient Education How to access health informa tion online - Detail Indication:BMI 34.0-34.9,adult Start:21-Jul-2016 Instruction Type:Patient Education Patient Instructions Indication:BMI 34.0-34.9,adult Start:21-Jul-2016 Instruction Type:Provider Instructions for Treatment How to access health informa tion online Indication:Non-smoker Start:15-Apr-2016 Instruction Type:Patient Education How to access health informa tion online - Detail Indication:Non-smoker Start:15-Apr-2016 Instruction Type:Patient Education Patient Instructions Indication:Non-smoker Start:15-Apr-2016 Instruction Type:Provider Instructions for Treatment How to access health informa tion online Indication:Non-smoker Start:13-Mar-2016 Instruction Type:Patient Education How to access health informa tion online - Detail Indication:Non-smoker Start:13-Mar-2016 Instruction Type:Patient Education Patient Instructions Indication:Non-smoker Start:13-Mar-2016 Instruction Type:Provider Instructions for Treatment How to access health informa tion online Indication:Hypertension Start:07-Feb-2016 Instruction Type:Patient Education How to access health informa tion online - Detail Indication:Hypertension Start:07-Feb-2016 Instruction Type:Patient Education Patient Instructions Indication:Hypertension Start:07-Feb-2016 Instruction Type:Provider Instructions for Treatment How to access health informa tion online Indication:Sore throat Start:23-Jan-2016 Instruction Type:Patient Education How to access health informa tion online - Detail Indication:Sore throat Start:23-Jan-2016 Instruction Type:Patient Education Patient Instructions Indication:Sore throat Start:23-Jan-2016 Instruction Type:Provider Instructions for Treatment How to access health informa tion online Indication:Non-smoker Start:08-Jan-2016 Instruction Type:Patient Education How to access health informa tion online - Detail Indication:Non-smoker Start:08-Jan-2016 Instruction Type:Patient Education Patient Instructions Indication:Non-smoker Start:08-Jan-2016 Instruction Type:Provider Instructions for Treatment [facility]; [facility] Work Phone: Instructions* Name Dates Details Patient Instructions Indication:BMI 37.0-37.9, adult Start:06-May-2021 Instruction Type:Provider Instructions for Treatment How to Access Health Informa tion Online using Patient Portal and [employer]rd [employer] Apps Indication:BMI 37.0-37.9, adult Start:06-May-2021 Instruction Type:Patient Education Patient Instructions Indication:BMI 34.0-34.9,adult Start:28-Dec-2020 Instruction Type:Provider Instructions for Treatment How to Access Health Informa tion Online using Patient Portal and [employer]rd [employer] Apps Indication:BMI 34.0-34.9,adult Start:28-Dec-2020 Instruction Type:Patient Education Patient Instructions Indication:Non-smoker Start:01-Nov-2020 Instruction Type:Provider Instructions for Treatment How to Access Health Informa tion Online using Patient Portal and [employer]rd [employer] Apps Indication:Non-smoker Start:01-Nov-2020 Instruction Type:Patient Education Patient Instructions Indication:Non-smoker Start:09-Aug-2020 Instruction Type:Provider Instructions for Treatment How to Access Health Informa tion Online using Patient Portal and [employer]rd [employer] Apps Indication:Non-smoker Start:09-Aug-2020 Instruction Type:Patient Education How to Access Health Informa tion Online using Patient Portal and [employer]rd [employer] Apps Indication:Non-smoker Start:06-Aug-2020 Instruction Type:Patient Education Patient Instructions Indication:Non-smoker Start:06-Aug-2020 Instruction Type:Provider Instructions for Treatment How to Access Health Informa tion Online using Patient Portal and [employer]rd [employer] Apps Indication:Non-smoker Start:09-Jul-2020 Instruction Type:Patient Education Patient Instructions Indication:Non-smoker Start:09-Jul-2020 Instruction Type:Provider Instructions for Treatment How to access health informa tion online Indication:Non-smoker Start:08-Jul-2019 Instruction Type:Patient Education How to access health informa tion online - Detail Indication:Non-smoker Start:08-Jul-2019 Instruction Type:Patient Education Patient Instructions Indication:Non-smoker Start:08-Jul-2019 Instruction Type:Provider Instructions for Treatment How to access health informa tion online Indication:Non-smoker Start:28-Apr-2019 Instruction Type:Patient Education How to access health informa tion online - Detail Indication:Non-smoker Start:28-Apr-2019 Instruction Type:Patient Education Patient Instructions Indication:Non-smoker Start:28-Apr-2019 Instruction Type:Provider Instructions for Treatment How to access health informa tion online Indication:Abnormal glucose tolerance test Start:10-Mar-2019 Instruction Type:Patient Education How to access health informa tion online - Detail Indication:Abnormal glucose tolerance test Start:10-Mar-2019 Instruction Type:Patient Education Patient Instructions Indication:Abnormal glucose tolerance test Start:10-Mar-2019 Instruction Type:Provider Instructions for Treatment How to access health informa tion online Indication:Abnormal glucose tolerance test Start:25-Oct-2018 Instruction Type:Patient Education How to access health informa tion online - Detail Indication:Abnormal glucose tolerance test Start:25-Oct-2018 Instruction Type:Patient Education Patient Instructions Indication:Abnormal glucose tolerance test Start:25-Oct-2018 Instruction Type:Provider Instructions for Treatment How to access health informa tion online - Detail Indication:Bronchitis Start:27-Sep-2018 Instruction Type:Patient Education Patient Instructions Indication:BMI 36.0-36.9,adult Start:27-Sep-2018 Instruction Type:Provider Instructions for Treatment How to access health informa tion online Indication:Non-smoker Start:21-Jun-2018 Instruction Type:Patient Education How to access health informa tion online - Detail Indication:Non-smoker Start:21-Jun-2018 Instruction Type:Patient Education Patient Instructions Indication:Non-smoker Start:21-Jun-2018 Instruction Type:Provider Instructions for Treatment How to access health informa tion online Indication:Non-smoker Start:10-May-2018 Instruction Type:Patient Education How to access health informa tion online - Detail Indication:Non-smoker Start:10-May-2018 Instruction Type:Patient Education Patient Instructions Indication:BMI 35.0-35.9,adult Start:10-May-2018 Instruction Type:Provider Instructions for Treatment How to access health informa tion online Indication:Non-smoker Start:14-Dec-2017 Instruction Type:Patient Education How to access health informa tion online - Detail Indication:Non-smoker Start:14-Dec-2017 Instruction Type:Patient Education Patient Instructions Indication:Non-smoker Start:14-Dec-2017 Instruction Type:Provider Instructions for Treatment How to access health informa tion online Indication:Cough Start:23-Jun-2017 Instruction Type:Patient Education How to access health informa tion online - Detail Indication:Cough Start:23-Jun-2017 Instruction Type:Patient Education Patient Instructions Indication:Cough Start:23-Jun-2017 Instruction Type:Provider Instructions for Treatment How to access health informa tion online Indication:Hyperlipidemia, mild Start:08-Jun-2017 Instruction Type:Patient Education How to access health informa tion online - Detail Indication:Hyperlipidemia, mild Start:08-Jun-2017 Instruction Type:Patient Education Patient Instructions Indication:Hyperlipidemia, mild Start:08-Jun-2017 Instruction Type:Provider Instructions for Treatment How to access health informa tion online Indication:Non-smoker Start:28-Apr-2017 Instruction Type:Patient Education How to access health informa tion online - Detail Indication:Non-smoker Start:28-Apr-2017 Instruction Type:Patient Education Patient Instructions Indication:Non-smoker Start:28-Apr-2017 Instruction Type:Provider Instructions for Treatment How to access health informa tion online Indication:BMI 34.0-34.9,adult Start:16-Apr-2017 Instruction Type:Patient Education How to access health informa tion online - Detail Indication:BMI 34.0-34.9,adult Start:16-Apr-2017 Instruction Type:Patient Education Patient Instructions Indication:BMI 34.0-34.9,adult Start:16-Apr-2017 Instruction Type:Provider Instructions for Treatment How to access health informa tion online Indication:Non-smoker Start:15-Jan-2017 Instruction Type:Patient Education How to access health informa tion online - Detail Indication:Non-smoker Start:15-Jan-2017 Instruction Type:Patient Education Patient Instructions Indication:Non-smoker Start:15-Jan-2017 Instruction Type:Provider Instructions for Treatment How to access health informa tion online Indication:BMI 35.0-35.9,adult Start:15-Dec-2016 Instruction Type:Patient Education How to access health informa tion online - Detail Indication:BMI 35.0-35.9,adult Start:15-Dec-2016 Instruction Type:Patient Education Patient Instructions Indication:BMI 35.0-35.9,adult Start:15-Dec-2016 Instruction Type:Provider Instructions for Treatment How to access health informa tion online Indication:Chronic asthma, unspecified asthma severity, uncomplicated Start:12-Sep-2016 Instruction Type:Patient Education How to access health informa tion online - Detail Indication:Chronic asthma, unspecified asthma severity, uncomplicated Start:12-Sep-2016 Instruction Type:Patient Education Patient Instructions Indication:Chronic asthma, unspecified asthma severity, uncomplicated Start:12-Sep-2016 Instruction Type:Provider Instructions for Treatment How to access health informa tion online Indication:Acute asthma flare Start:08-Sep-2016 Instruction Type:Patient Education How to access health informa tion online - Detail Indication:Acute asthma flare Start:08-Sep-2016 Instruction Type:Patient Education Patient Instructions Indication:Acute asthma flare Start:08-Sep-2016 Instruction Type:Provider Instructions for Treatment How to access health informa tion online Indication:Acute asthma flare Start:01-Sep-2016 Instruction Type:Patient Education How to access health informa tion online - Detail Indication:Acute asthma flare Start:01-Sep-2016 Instruction Type:Patient Education Patient Instructions Indication:Acute asthma flare Start:01-Sep-2016 Instruction Type:Provider Instructions for Treatment How to access health informa tion online Indication:Non-smoker Start:25-Aug-2016 Instruction Type:Patient Education How to access health informa tion online - Detail Indication:Non-smoker Start:25-Aug-2016 Instruction Type:Patient Education Patient Instructions Indication:Non-smoker Start:25-Aug-2016 Instruction Type:Provider Instructions for Treatment How to access health informa tion online Indication:BMI 34.0-34.9,adult Start:21-Jul-2016 Instruction Type:Patient Education How to access health informa tion online - Detail Indication:BMI 34.0-34.9,adult Start:21-Jul-2016 Instruction Type:Patient Education Patient Instructions Indication:BMI 34.0-34.9,adult Start:21-Jul-2016 Instruction Type:Provider Instructions for Treatment How to access health informa tion online Indication:Non-smoker Start:15-Apr-2016 Instruction Type:Patient Education How to access health informa tion online - Detail Indication:Non-smoker Start:15-Apr-2016 Instruction Type:Patient Education Patient Instructions Indication:Non-smoker Start:15-Apr-2016 Instruction Type:Provider Instructions for Treatment How to access health informa tion online Indication:Non-smoker Start:13-Mar-2016 Instruction Type:Patient Education How to access health informa tion online - Detail Indication:Non-smoker Start:13-Mar-2016 Instruction Type:Patient Education Patient Instructions Indication:Non-smoker Start:13-Mar-2016 Instruction Type:Provider Instructions for Treatment How to access health informa tion online Indication:Hypertension Start:07-Feb-2016 Instruction Type:Patient Education How to access health informa tion online - Detail Indication:Hypertension Start:07-Feb-2016 Instruction Type:Patient Education Patient Instructions Indication:Hypertension Start:07-Feb-2016 Instruction Type:Provider Instructions for Treatment How to access health informa tion online Indication:Sore throat Start:23-Jan-2016 Instruction Type:Patient Education How to access health informa tion online - Detail Indication:Sore throat Start:23-Jan-2016 Instruction Type:Patient Education Patient Instructions Indication:Sore throat Start:23-Jan-2016 Instruction Type:Provider Instructions for Treatment How to access health informa tion online Indication:Non-smoker Start:08-Jan-2016 Instruction Type:Patient Education How to access health informa tion online - Detail Indication:Non-smoker Start:08-Jan-2016 Instruction Type:Patient Education Patient Instructions Indication:Non-smoker Start:08-Jan-2016 Instruction Type:Provider Instructions for Treatment [facility]; [facility] Work Phone: Instructions* Name Dates Details Patient Instructions Indication:BMI 37.0-37.9, adult Start:06-May-2021 Instruction Type:Provider Instructions for Treatment How to Access Health Informa tion Online using Patient Portal and [employer]rd [employer] Apps Indication:BMI 37.0-37.9, adult Start:06-May-2021 Instruction Type:Patient Education Patient Instructions Indication:BMI 34.0-34.9,adult Start:28-Dec-2020 Instruction Type:Provider Instructions for Treatment How to Access Health Informa tion Online using Patient Portal and [employer]rd [employer] Apps Indication:BMI 34.0-34.9,adult Start:28-Dec-2020 Instruction Type:Patient Education Patient Instructions Indication:Non-smoker Start:01-Nov-2020 Instruction Type:Provider Instructions for Treatment How to Access Health Informa tion Online using Patient Portal and [employer]rd [employer] Apps Indication:Non-smoker Start:01-Nov-2020 Instruction Type:Patient Education Patient Instructions Indication:Non-smoker Start:09-Aug-2020 Instruction Type:Provider Instructions for Treatment How to Access Health Informa tion Online using Patient Portal and [employer]rd [employer] Apps Indication:Non-smoker Start:09-Aug-2020 Instruction Type:Patient Education How to Access Health Informa tion Online using Patient Portal and [employer]rd [employer] Apps Indication:Non-smoker Start:06-Aug-2020 Instruction Type:Patient Education Patient Instructions Indication:Non-smoker Start:06-Aug-2020 Instruction Type:Provider Instructions for Treatment How to Access Health Informa tion Online using Patient Portal and [employer]rd [employer] Apps Indication:Non-smoker Start:09-Jul-2020 Instruction Type:Patient Education Patient Instructions Indication:Non-smoker Start:09-Jul-2020 Instruction Type:Provider Instructions for Treatment How to access health informa tion online Indication:Non-smoker Start:08-Jul-2019 Instruction Type:Patient Education How to access health informa tion online - Detail Indication:Non-smoker Start:08-Jul-2019 Instruction Type:Patient Education Patient Instructions Indication:Non-smoker Start:08-Jul-2019 Instruction Type:Provider Instructions for Treatment How to access health informa tion online Indication:Non-smoker Start:28-Apr-2019 Instruction Type:Patient Education How to access health informa tion online - Detail Indication:Non-smoker Start:28-Apr-2019 Instruction Type:Patient Education Patient Instructions Indication:Non-smoker Start:28-Apr-2019 Instruction Type:Provider Instructions for Treatment How to access health informa tion online Indication:Abnormal glucose tolerance test Start:10-Mar-2019 Instruction Type:Patient Education How to access health informa tion online - Detail Indication:Abnormal glucose tolerance test Start:10-Mar-2019 Instruction Type:Patient Education Patient Instructions Indication:Abnormal glucose tolerance test Start:10-Mar-2019 Instruction Type:Provider Instructions for Treatment How to access health informa tion online Indication:Abnormal glucose tolerance test Start:25-Oct-2018 Instruction Type:Patient Education How to access health informa tion online - Detail Indication:Abnormal glucose tolerance test Start:25-Oct-2018 Instruction Type:Patient Education Patient Instructions Indication:Abnormal glucose tolerance test Start:25-Oct-2018 Instruction Type:Provider Instructions for Treatment How to access health informa tion online - Detail Indication:Bronchitis Start:27-Sep-2018 Instruction Type:Patient Education Patient Instructions Indication:BMI 36.0-36.9,adult Start:27-Sep-2018 Instruction Type:Provider Instructions for Treatment How to access health informa tion online Indication:Non-smoker Start:21-Jun-2018 Instruction Type:Patient Education How to access health informa tion online - Detail Indication:Non-smoker Start:21-Jun-2018 Instruction Type:Patient Education Patient Instructions Indication:Non-smoker Start:21-Jun-2018 Instruction Type:Provider Instructions for Treatment How to access health informa tion online Indication:Non-smoker Start:10-May-2018 Instruction Type:Patient Education How to access health informa tion online - Detail Indication:Non-smoker Start:10-May-2018 Instruction Type:Patient Education Patient Instructions Indication:BMI 35.0-35.9,adult Start:10-May-2018 Instruction Type:Provider Instructions for Treatment How to access health informa tion online Indication:Non-smoker Start:14-Dec-2017 Instruction Type:Patient Education How to access health informa tion online - Detail Indication:Non-smoker Start:14-Dec-2017 Instruction Type:Patient Education Patient Instructions Indication:Non-smoker Start:14-Dec-2017 Instruction Type:Provider Instructions for Treatment How to access health informa tion online Indication:Cough Start:23-Jun-2017 Instruction Type:Patient Education How to access health informa tion online - Detail Indication:Cough Start:23-Jun-2017 Instruction Type:Patient Education Patient Instructions Indication:Cough Start:23-Jun-2017 Instruction Type:Provider Instructions for Treatment How to access health informa tion online Indication:Hyperlipidemia, mild Start:08-Jun-2017 Instruction Type:Patient Education How to access health informa tion online - Detail Indication:Hyperlipidemia, mild Start:08-Jun-2017 Instruction Type:Patient Education Patient Instructions Indication:Hyperlipidemia, mild Start:08-Jun-2017 Instruction Type:Provider Instructions for Treatment How to access health informa tion online Indication:Non-smoker Start:28-Apr-2017 Instruction Type:Patient Education How to access health informa tion online - Detail Indication:Non-smoker Start:28-Apr-2017 Instruction Type:Patient Education Patient Instructions Indication:Non-smoker Start:28-Apr-2017 Instruction Type:Provider Instructions for Treatment How to access health informa tion online Indication:BMI 34.0-34.9,adult Start:16-Apr-2017 Instruction Type:Patient Education How to access health informa tion online - Detail Indication:BMI 34.0-34.9,adult Start:16-Apr-2017 Instruction Type:Patient Education Patient Instructions Indication:BMI 34.0-34.9,adult Start:16-Apr-2017 Instruction Type:Provider Instructions for Treatment How to access health informa tion online Indication:Non-smoker Start:15-Jan-2017 Instruction Type:Patient Education How to access health informa tion online - Detail Indication:Non-smoker Start:15-Jan-2017 Instruction Type:Patient Education Patient Instructions Indication:Non-smoker Start:15-Jan-2017 Instruction Type:Provider Instructions for Treatment How to access health informa tion online Indication:BMI 35.0-35.9,adult Start:15-Dec-2016 Instruction Type:Patient Education How to access health informa tion online - Detail Indication:BMI 35.0-35.9,adult Start:15-Dec-2016 Instruction Type:Patient Education Patient Instructions Indication:BMI 35.0-35.9,adult Start:15-Dec-2016 Instruction Type:Provider Instructions for Treatment How to access health informa tion online Indication:Chronic asthma, unspecified asthma severity, uncomplicated Start:12-Sep-2016 Instruction Type:Patient Education How to access health informa tion online - Detail Indication:Chronic asthma, unspecified asthma severity, uncomplicated Start:12-Sep-2016 Instruction Type:Patient Education Patient Instructions Indication:Chronic asthma, unspecified asthma severity, uncomplicated Start:12-Sep-2016 Instruction Type:Provider Instructions for Treatment How to access health informa tion online Indication:Acute asthma flare Start:08-Sep-2016 Instruction Type:Patient Education How to access health informa tion online - Detail Indication:Acute asthma flare Start:08-Sep-2016 Instruction Type:Patient Education Patient Instructions Indication:Acute asthma flare Start:08-Sep-2016 Instruction Type:Provider Instructions for Treatment How to access health informa tion online Indication:Acute asthma flare Start:01-Sep-2016 Instruction Type:Patient Education How to access health informa tion online - Detail Indication:Acute asthma flare Start:01-Sep-2016 Instruction Type:Patient Education Patient Instructions Indication:Acute asthma flare Start:01-Sep-2016 Instruction Type:Provider Instructions for Treatment How to access health informa tion online Indication:Non-smoker Start:25-Aug-2016 Instruction Type:Patient Education How to access health informa tion online - Detail Indication:Non-smoker Start:25-Aug-2016 Instruction Type:Patient Education Patient Instructions Indication:Non-smoker Start:25-Aug-2016 Instruction Type:Provider Instructions for Treatment How to access health informa tion online Indication:BMI 34.0-34.9,adult Start:21-Jul-2016 Instruction Type:Patient Education How to access health informa tion online - Detail Indication:BMI 34.0-34.9,adult Start:21-Jul-2016 Instruction Type:Patient Education Patient Instructions Indication:BMI 34.0-34.9,adult Start:21-Jul-2016 Instruction Type:Provider Instructions for Treatment How to access health informa tion online Indication:Non-smoker Start:15-Apr-2016 Instruction Type:Patient Education How to access health informa tion online - Detail Indication:Non-smoker Start:15-Apr-2016 Instruction Type:Patient Education Patient Instructions Indication:Non-smoker Start:15-Apr-2016 Instruction Type:Provider Instructions for Treatment How to access health informa tion online Indication:Non-smoker Start:13-Mar-2016 Instruction Type:Patient Education How to access health informa tion online - Detail Indication:Non-smoker Start:13-Mar-2016 Instruction Type:Patient Education Patient Instructions Indication:Non-smoker Start:13-Mar-2016 Instruction Type:Provider Instructions for Treatment How to access health informa tion online Indication:Hypertension Start:07-Feb-2016 Instruction Type:Patient Education How to access health informa tion online - Detail Indication:Hypertension Start:07-Feb-2016 Instruction Type:Patient Education Patient Instructions Indication:Hypertension Start:07-Feb-2016 Instruction Type:Provider Instructions for Treatment How to access health informa tion online Indication:Sore throat Start:23-Jan-2016 Instruction Type:Patient Education How to access health informa tion online - Detail Indication:Sore throat Start:23-Jan-2016 Instruction Type:Patient Education Patient Instructions Indication:Sore throat Start:23-Jan-2016 Instruction Type:Provider Instructions for Treatment How to access health informa tion online Indication:Non-smoker Start:08-Jan-2016 Instruction Type:Patient Education How to access health informa tion online - Detail Indication:Non-smoker Start:08-Jan-2016 Instruction Type:Patient Education Patient Instructions Indication:Non-smoker Start:08-Jan-2016 Instruction Type:Provider Instructions for Treatment [facility]; [facility] Work Phone: Instructions* Name Dates Details Patient Instructions Indication:BMI 37.0-37.9, adult Start:06-May-2021 Instruction Type:Provider Instructions for Treatment How to Access Health Informa tion Online using Patient Portal and [employer]rd [employer] Apps Indication:BMI 37.0-37.9, adult Start:06-May-2021 Instruction Type:Patient Education Patient Instructions Indication:BMI 34.0-34.9,adult Start:28-Dec-2020 Instruction Type:Provider Instructions for Treatment How to Access Health Informa tion Online using Patient Portal and [employer]rd [employer] Apps Indication:BMI 34.0-34.9,adult Start:28-Dec-2020 Instruction Type:Patient Education Patient Instructions Indication:Non-smoker Start:01-Nov-2020 Instruction Type:Provider Instructions for Treatment How to Access Health Informa tion Online using Patient Portal and [employer]rd [employer] Apps Indication:Non-smoker Start:01-Nov-2020 Instruction Type:Patient Education Patient Instructions Indication:Non-smoker Start:09-Aug-2020 Instruction Type:Provider Instructions for Treatment How to Access Health Informa tion Online using Patient Portal and [employer]rd [employer] Apps Indication:Non-smoker Start:09-Aug-2020 Instruction Type:Patient Education How to Access Health Informa tion Online using Patient Portal and [employer]rd [employer] Apps Indication:Non-smoker Start:06-Aug-2020 Instruction Type:Patient Education Patient Instructions Indication:Non-smoker Start:06-Aug-2020 Instruction Type:Provider Instructions for Treatment How to Access Health Informa tion Online using Patient Portal and [employer] Apps Indication:Non-smoker Start:09-Jul-2020 Instruction Type:Patient Education Patient Instructions Indication:Non-smoker Start:09-Jul-2020 Instruction Type:Provider Instructions for Treatment How to access health informa tion online Indication:Non-smoker Start:08-Jul-2019 Instruction Type:Patient Education How to access health informa tion online - Detail Indication:Non-smoker Start:08-Jul-2019 Instruction Type:Patient Education Patient Instructions Indication:Non-smoker Start:08-Jul-2019 Instruction Type:Provider Instructions for Treatment How to access health informa tion online Indication:Non-smoker Start:28-Apr-2019 Instruction Type:Patient Education How to access health informa tion online - Detail Indication:Non-smoker Start:28-Apr-2019 Instruction Type:Patient Education Patient Instructions Indication:Non-smoker Start:28-Apr-2019 Instruction Type:Provider Instructions for Treatment How to access health informa tion online Indication:Abnormal glucose tolerance test Start:10-Mar-2019 Instruction Type:Patient Education How to access health informa tion online - Detail Indication:Abnormal glucose tolerance test Start:10-Mar-2019 Instruction Type:Patient Education Patient Instructions Indication:Abnormal glucose tolerance test Start:10-Mar-2019 Instruction Type:Provider Instructions for Treatment How to access health informa tion online Indication:Abnormal glucose tolerance test Start:25-Oct-2018 Instruction Type:Patient Education How to access health informa tion online - Detail Indication:Abnormal glucose tolerance test Start:25-Oct-2018 Instruction Type:Patient Education Patient Instructions Indication:Abnormal glucose tolerance test Start:25-Oct-2018 Instruction Type:Provider Instructions for Treatment How to access health informa tion online - Detail Indication:Bronchitis Start:27-Sep-2018 Instruction Type:Patient Education Patient Instructions Indication:BMI 36.0-36.9,adult Start:27-Sep-2018 Instruction Type:Provider Instructions for Treatment How to access health informa tion online Indication:Non-smoker Start:21-Jun-2018 Instruction Type:Patient Education How to access health informa tion online - Detail Indication:Non-smoker Start:21-Jun-2018 Instruction Type:Patient Education Patient Instructions Indication:Non-smoker Start:21-Jun-2018 Instruction Type:Provider Instructions for Treatment How to access health informa tion online Indication:Non-smoker Start:10-May-2018 Instruction Type:Patient Education How to access health informa tion online - Detail Indication:Non-smoker Start:10-May-2018 Instruction Type:Patient Education Patient Instructions Indication:BMI 35.0-35.9,adult Start:10-May-2018 Instruction Type:Provider Instructions for Treatment How to access health informa tion online Indication:Non-smoker Start:14-Dec-2017 Instruction Type:Patient Education How to access health informa tion online - Detail Indication:Non-smoker Start:14-Dec-2017 Instruction Type:Patient Education Patient Instructions Indication:Non-smoker Start:14-Dec-2017 Instruction Type:Provider Instructions for Treatment How to access health informa tion online Indication:Cough Start:23-Jun-2017 Instruction Type:Patient Education How to access health informa tion online - Detail Indication:Cough Start:23-Jun-2017 Instruction Type:Patient Education Patient Instructions Indication:Cough Start:23-Jun-2017 Instruction Type:Provider Instructions for Treatment How to access health informa tion online Indication:Hyperlipidemia, mild Start:08-Jun-2017 Instruction Type:Patient Education How to access health informa tion online - Detail Indication:Hyperlipidemia, mild Start:08-Jun-2017 Instruction Type:Patient Education Patient Instructions Indication:Hyperlipidemia, mild Start:08-Jun-2017 Instruction Type:Provider Instructions for Treatment How to access health informa tion online Indication:Non-smoker Start:28-Apr-2017 Instruction Type:Patient Education How to access health informa tion online - Detail Indication:Non-smoker Start:28-Apr-2017 Instruction Type:Patient Education Patient Instructions Indication:Non-smoker Start:28-Apr-2017 Instruction Type:Provider Instructions for Treatment How to access health informa tion online Indication:BMI 34.0-34.9,adult Start:16-Apr-2017 Instruction Type:Patient Education How to access health informa tion online - Detail Indication:BMI 34.0-34.9,adult Start:16-Apr-2017 Instruction Type:Patient Education Patient Instructions Indication:BMI 34.0-34.9,adult Start:16-Apr-2017 Instruction Type:Provider Instructions for Treatment How to access health informa tion online Indication:Non-smoker Start:15-Jan-2017 Instruction Type:Patient Education How to access health informa tion online - Detail Indication:Non-smoker Start:15-Jan-2017 Instruction Type:Patient Education Patient Instructions Indication:Non-smoker Start:15-Jan-2017 Instruction Type:Provider Instructions for Treatment How to access health informa tion online Indication:BMI 35.0-35.9,adult Start:15-Dec-2016 Instruction Type:Patient Education How to access health informa tion online - Detail Indication:BMI 35.0-35.9,adult Start:15-Dec-2016 Instruction Type:Patient Education Patient Instructions Indication:BMI 35.0-35.9,adult Start:15-Dec-2016 Instruction Type:Provider Instructions for Treatment How to access health informa tion online Indication:Chronic asthma, unspecified asthma severity, uncomplicated Start:12-Sep-2016 Instruction Type:Patient Education How to access health informa tion online - Detail Indication:Chronic asthma, unspecified asthma severity, uncomplicated Start:12-Sep-2016 Instruction Type:Patient Education Patient Instructions Indication:Chronic asthma, unspecified asthma severity, uncomplicated Start:12-Sep-2016 Instruction Type:Provider Instructions for Treatment How to access health informa tion online Indication:Acute asthma flare Start:08-Sep-2016 Instruction Type:Patient Education How to access health informa tion online - Detail Indication:Acute asthma flare Start:08-Sep-2016 Instruction Type:Patient Education Patient Instructions Indication:Acute asthma flare Start:08-Sep-2016 Instruction Type:Provider Instructions for Treatment How to access health informa tion online Indication:Acute asthma flare Start:01-Sep-2016 Instruction Type:Patient Education How to access health informa tion online - Detail Indication:Acute asthma flare Start:01-Sep-2016 Instruction Type:Patient Education Patient Instructions Indication:Acute asthma flare Start:01-Sep-2016 Instruction Type:Provider Instructions for Treatment How to access health informa tion online Indication:Non-smoker Start:25-Aug-2016 Instruction Type:Patient Education How to access health informa tion online - Detail Indication:Non-smoker Start:25-Aug-2016 Instruction Type:Patient Education Patient Instructions Indication:Non-smoker Start:25-Aug-2016 Instruction Type:Provider Instructions for Treatment How to access health informa tion online Indication:BMI 34.0-34.9,adult Start:21-Jul-2016 Instruction Type:Patient Education How to access health informa tion online - Detail Indication:BMI 34.0-34.9,adult Start:21-Jul-2016 Instruction Type:Patient Education Patient Instructions Indication:BMI 34.0-34.9,adult Start:21-Jul-2016 Instruction Type:Provider Instructions for Treatment How to access health informa tion online Indication:Non-smoker Start:15-Apr-2016 Instruction Type:Patient Education How to access health informa tion online - Detail Indication:Non-smoker Start:15-Apr-2016 Instruction Type:Patient Education Patient Instructions Indication:Non-smoker Start:15-Apr-2016 Instruction Type:Provider Instructions for Treatment How to access health informa tion online Indication:Non-smoker Start:13-Mar-2016 Instruction Type:Patient Education How to access health informa tion online - Detail Indication:Non-smoker Start:13-Mar-2016 Instruction Type:Patient Education Patient Instructions Indication:Non-smoker Start:13-Mar-2016 Instruction Type:Provider Instructions for Treatment How to access health informa tion online Indication:Hypertension Start:07-Feb-2016 Instruction Type:Patient Education How to access health informa tion online - Detail Indication:Hypertension Start:07-Feb-2016 Instruction Type:Patient Education Patient Instructions Indication:Hypertension Start:07-Feb-2016 Instruction Type:Provider Instructions for Treatment How to access health informa tion online Indication:Sore throat Start:23-Jan-2016 Instruction Type:Patient Education How to access health informa tion online - Detail Indication:Sore throat Start:23-Jan-2016 Instruction Type:Patient Education Patient Instructions Indication:Sore throat Start:23-Jan-2016 Instruction Type:Provider Instructions for Treatment How to access health informa tion online Indication:Non-smoker Start:08-Jan-2016 Instruction Type:Patient Education How to access health informa tion online - Detail Indication:Non-smoker Start:08-Jan-2016 Instruction Type:Patient Education Patient Instructions Indication:Non-smoker Start:08-Jan-2016 Instruction Type:Provider Instructions for Treatment [facility]; [facility] Work Phone: Instructions* Name Dates Details Patient Instructions Indication:BMI 37.0-37.9, adult Start:06-May-2021 Instruction Type:Provider Instructions for Treatment How to Access Health Informa tion Online using Patient Portal and [employer]rd [employer] Apps Indication:BMI 37.0-37.9, adult Start:06-May-2021 Instruction Type:Patient Education Patient Instructions Indication:BMI 34.0-34.9,adult Start:28-Dec-2020 Instruction Type:Provider Instructions for Treatment How to Access Health Informa tion Online using Patient Portal and [employer]rd [employer] Apps Indication:BMI 34.0-34.9,adult Start:28-Dec-2020 Instruction Type:Patient Education Patient Instructions Indication:Non-smoker Start:01-Nov-2020 Instruction Type:Provider Instructions for Treatment How to Access Health Informa tion Online using Patient Portal and [employer]rd [employer] Apps Indication:Non-smoker Start:01-Nov-2020 Instruction Type:Patient Education Patient Instructions Indication:Non-smoker Start:09-Aug-2020 Instruction Type:Provider Instructions for Treatment How to Access Health Informa tion Online using Patient Portal and [employer]rd [employer] Apps Indication:Non-smoker Start:09-Aug-2020 Instruction Type:Patient Education How to Access Health Informa tion Online using Patient Portal and [employer]rd [employer] Apps Indication:Non-smoker Start:06-Aug-2020 Instruction Type:Patient Education Patient Instructions Indication:Non-smoker Start:06-Aug-2020 Instruction Type:Provider Instructions for Treatment How to Access Health Informa tion Online using Patient Portal and [employer]rd [employer] Apps Indication:Non-smoker Start:09-Jul-2020 Instruction Type:Patient Education Patient Instructions Indication:Non-smoker Start:09-Jul-2020 Instruction Type:Provider Instructions for Treatment How to access health informa tion online Indication:Non-smoker Start:08-Jul-2019 Instruction Type:Patient Education How to access health informa tion online - Detail Indication:Non-smoker Start:08-Jul-2019 Instruction Type:Patient Education Patient Instructions Indication:Non-smoker Start:08-Jul-2019 Instruction Type:Provider Instructions for Treatment How to access health informa tion online Indication:Non-smoker Start:28-Apr-2019 Instruction Type:Patient Education How to access health informa tion online - Detail Indication:Non-smoker Start:28-Apr-2019 Instruction Type:Patient Education Patient Instructions Indication:Non-smoker Start:28-Apr-2019 Instruction Type:Provider Instructions for Treatment How to access health informa tion online Indication:Abnormal glucose tolerance test Start:10-Mar-2019 Instruction Type:Patient Education How to access health informa tion online - Detail Indication:Abnormal glucose tolerance test Start:10-Mar-2019 Instruction Type:Patient Education Patient Instructions Indication:Abnormal glucose tolerance test Start:10-Mar-2019 Instruction Type:Provider Instructions for Treatment How to access health informa tion online Indication:Abnormal glucose tolerance test Start:25-Oct-2018 Instruction Type:Patient Education How to access health informa tion online - Detail Indication:Abnormal glucose tolerance test Start:25-Oct-2018 Instruction Type:Patient Education Patient Instructions Indication:Abnormal glucose tolerance test Start:25-Oct-2018 Instruction Type:Provider Instructions for Treatment How to access health informa tion online - Detail Indication:Bronchitis Start:27-Sep-2018 Instruction Type:Patient Education Patient Instructions Indication:BMI 36.0-36.9,adult Start:27-Sep-2018 Instruction Type:Provider Instructions for Treatment How to access health informa tion online Indication:Non-smoker Start:21-Jun-2018 Instruction Type:Patient Education How to access health informa tion online - Detail Indication:Non-smoker Start:21-Jun-2018 Instruction Type:Patient Education Patient Instructions Indication:Non-smoker Start:21-Jun-2018 Instruction Type:Provider Instructions for Treatment How to access health informa tion online Indication:Non-smoker Start:10-May-2018 Instruction Type:Patient Education How to access health informa tion online - Detail Indication:Non-smoker Start:10-May-2018 Instruction Type:Patient Education Patient Instructions Indication:BMI 35.0-35.9,adult Start:10-May-2018 Instruction Type:Provider Instructions for Treatment How to access health informa tion online Indication:Non-smoker Start:14-Dec-2017 Instruction Type:Patient Education How to access health informa tion online - Detail Indication:Non-smoker Start:14-Dec-2017 Instruction Type:Patient Education Patient Instructions Indication:Non-smoker Start:14-Dec-2017 Instruction Type:Provider Instructions for Treatment How to access health informa tion online Indication:Cough Start:23-Jun-2017 Instruction Type:Patient Education How to access health informa tion online - Detail Indication:Cough Start:23-Jun-2017 Instruction Type:Patient Education Patient Instructions Indication:Cough Start:23-Jun-2017 Instruction Type:Provider Instructions for Treatment How to access health informa tion online Indication:Hyperlipidemia, mild Start:08-Jun-2017 Instruction Type:Patient Education How to access health informa tion online - Detail Indication:Hyperlipidemia, mild Start:08-Jun-2017 Instruction Type:Patient Education Patient Instructions Indication:Hyperlipidemia, mild Start:08-Jun-2017 Instruction Type:Provider Instructions for Treatment How to access health informa tion online Indication:Non-smoker Start:28-Apr-2017 Instruction Type:Patient Education How to access health informa tion online - Detail Indication:Non-smoker Start:28-Apr-2017 Instruction Type:Patient Education Patient Instructions Indication:Non-smoker Start:28-Apr-2017 Instruction Type:Provider Instructions for Treatment How to access health informa tion online Indication:BMI 34.0-34.9,adult Start:16-Apr-2017 Instruction Type:Patient Education How to access health informa tion online - Detail Indication:BMI 34.0-34.9,adult Start:16-Apr-2017 Instruction Type:Patient Education Patient Instructions Indication:BMI 34.0-34.9,adult Start:16-Apr-2017 Instruction Type:Provider Instructions for Treatment How to access health informa tion online Indication:Non-smoker Start:15-Jan-2017 Instruction Type:Patient Education How to access health informa tion online - Detail Indication:Non-smoker Start:15-Jan-2017 Instruction Type:Patient Education Patient Instructions Indication:Non-smoker Start:15-Jan-2017 Instruction Type:Provider Instructions for Treatment How to access health informa tion online Indication:BMI 35.0-35.9,adult Start:15-Dec-2016 Instruction Type:Patient Education How to access health informa tion online - Detail Indication:BMI 35.0-35.9,adult Start:15-Dec-2016 Instruction Type:Patient Education Patient Instructions Indication:BMI 35.0-35.9,adult Start:15-Dec-2016 Instruction Type:Provider Instructions for Treatment How to access health informa tion online Indication:Chronic asthma, unspecified asthma severity, uncomplicated Start:12-Sep-2016 Instruction Type:Patient Education How to access health informa tion online - Detail Indication:Chronic asthma, unspecified asthma severity, uncomplicated Start:12-Sep-2016 Instruction Type:Patient Education Patient Instructions Indication:Chronic asthma, unspecified asthma severity, uncomplicated Start:12-Sep-2016 Instruction Type:Provider Instructions for Treatment How to access health informa tion online Indication:Acute asthma flare Start:08-Sep-2016 Instruction Type:Patient Education How to access health informa tion online - Detail Indication:Acute asthma flare Start:08-Sep-2016 Instruction Type:Patient Education Patient Instructions Indication:Acute asthma flare Start:08-Sep-2016 Instruction Type:Provider Instructions for Treatment How to access health informa tion online Indication:Acute asthma flare Start:01-Sep-2016 Instruction Type:Patient Education How to access health informa tion online - Detail Indication:Acute asthma flare Start:01-Sep-2016 Instruction Type:Patient Education Patient Instructions Indication:Acute asthma flare Start:01-Sep-2016 Instruction Type:Provider Instructions for Treatment How to access health informa tion online Indication:Non-smoker Start:25-Aug-2016 Instruction Type:Patient Education How to access health informa tion online - Detail Indication:Non-smoker Start:25-Aug-2016 Instruction Type:Patient Education Patient Instructions Indication:Non-smoker Start:25-Aug-2016 Instruction Type:Provider Instructions for Treatment How to access health informa tion online Indication:BMI 34.0-34.9,adult Start:21-Jul-2016 Instruction Type:Patient Education How to access health informa tion online - Detail Indication:BMI 34.0-34.9,adult Start:21-Jul-2016 Instruction Type:Patient Education Patient Instructions Indication:BMI 34.0-34.9,adult Start:21-Jul-2016 Instruction Type:Provider Instructions for Treatment How to access health informa tion online Indication:Non-smoker Start:15-Apr-2016 Instruction Type:Patient Education How to access health informa tion online - Detail Indication:Non-smoker Start:15-Apr-2016 Instruction Type:Patient Education Patient Instructions Indication:Non-smoker Start:15-Apr-2016 Instruction Type:Provider Instructions for Treatment How to access health informa tion online Indication:Non-smoker Start:13-Mar-2016 Instruction Type:Patient Education How to access health informa tion online - Detail Indication:Non-smoker Start:13-Mar-2016 Instruction Type:Patient Education Patient Instructions Indication:Non-smoker Start:13-Mar-2016 Instruction Type:Provider Instructions for Treatment How to access health informa tion online Indication:Hypertension Start:07-Feb-2016 Instruction Type:Patient Education How to access health informa tion online - Detail Indication:Hypertension Start:07-Feb-2016 Instruction Type:Patient Education Patient Instructions Indication:Hypertension Start:07-Feb-2016 Instruction Type:Provider Instructions for Treatment How to access health informa tion online Indication:Sore throat Start:23-Jan-2016 Instruction Type:Patient Education How to access health informa tion online - Detail Indication:Sore throat Start:23-Jan-2016 Instruction Type:Patient Education Patient Instructions Indication:Sore throat Start:23-Jan-2016 Instruction Type:Provider Instructions for Treatment How to access health informa tion online Indication:Non-smoker Start:08-Jan-2016 Instruction Type:Patient Education How to access health informa tion online - Detail Indication:Non-smoker Start:08-Jan-2016 Instruction Type:Patient Education Patient Instructions Indication:Non-smoker Start:08-Jan-2016 Instruction Type:Provider Instructions for Treatment [facility]; [facility] Work Phone: Instructions* Name Dates Details Patient Instructions Indication:Non-smoker Start:28-Apr-2022 Instruction Type:Provider Instructions for Treatment How to Access Health Informa tion Online using Patient Portal and [employer]rd [employer] Apps Indication:Non-smoker Start:28-Apr-2022 Instruction Type:Patient Education Patient Instructions Indication:BMI 37.0-37.9, adult Start:06-May-2021 Instruction Type:Provider Instructions for Treatment How to Access Health Informa tion Online using Patient Portal and [employer]rd [employer] Apps Indication:BMI 37.0-37.9, adult Start:06-May-2021 Instruction Type:Patient Education Patient Instructions Indication:BMI 34.0-34.9,adult Start:28-Dec-2020 Instruction Type:Provider Instructions for Treatment How to Access Health Informa tion Online using Patient Portal and [employer]rd [employer] Apps Indication:BMI 34.0-34.9,adult Start:28-Dec-2020 Instruction Type:Patient Education Patient Instructions Indication:Non-smoker Start:01-Nov-2020 Instruction Type:Provider Instructions for Treatment How to Access Health Informa tion Online using Patient Portal and [employer] Apps Indication:Non-smoker Start:01-Nov-2020 Instruction Type:Patient Education Patient Instructions Indication:Non-smoker Start:09-Aug-2020 Instruction Type:Provider Instructions for Treatment How to Access Health Informa tion Online using Patient Portal and [employer] Apps Indication:Non-smoker Start:09-Aug-2020 Instruction Type:Patient Education How to Access Health Informa tion Online using Patient Portal and [employer] Apps Indication:Non-smoker Start:06-Aug-2020 Instruction Type:Patient Education Patient Instructions Indication:Non-smoker Start:06-Aug-2020 Instruction Type:Provider Instructions for Treatment How to Access Health Informa tion Online using Patient Portal and [employer] Apps Indication:Non-smoker Start:09-Jul-2020 Instruction Type:Patient Education Patient Instructions Indication:Non-smoker Start:09-Jul-2020 Instruction Type:Provider Instructions for Treatment How to access health informa tion online Indication:Non-smoker Start:08-Jul-2019 Instruction Type:Patient Education How to access health informa tion online - Detail Indication:Non-smoker Start:08-Jul-2019 Instruction Type:Patient Education Patient Instructions Indication:Non-smoker Start:08-Jul-2019 Instruction Type:Provider Instructions for Treatment How to access health informa tion online Indication:Non-smoker Start:28-Apr-2019 Instruction Type:Patient Education How to access health informa tion online - Detail Indication:Non-smoker Start:28-Apr-2019 Instruction Type:Patient Education Patient Instructions Indication:Non-smoker Start:28-Apr-2019 Instruction Type:Provider Instructions for Treatment How to access health informa tion online Indication:Abnormal glucose tolerance test Start:10-Mar-2019 Instruction Type:Patient Education How to access health informa tion online - Detail Indication:Abnormal glucose tolerance test Start:10-Mar-2019 Instruction Type:Patient Education Patient Instructions Indication:Abnormal glucose tolerance test Start:10-Mar-2019 Instruction Type:Provider Instructions for Treatment How to access health informa tion online Indication:Abnormal glucose tolerance test Start:25-Oct-2018 Instruction Type:Patient Education How to access health informa tion online - Detail Indication:Abnormal glucose tolerance test Start:25-Oct-2018 Instruction Type:Patient Education Patient Instructions Indication:Abnormal glucose tolerance test Start:25-Oct-2018 Instruction Type:Provider Instructions for Treatment How to access health informa tion online - Detail Indication:Bronchitis Start:27-Sep-2018 Instruction Type:Patient Education Patient Instructions Indication:BMI 36.0-36.9,adult Start:27-Sep-2018 Instruction Type:Provider Instructions for Treatment How to access health informa tion online Indication:Non-smoker Start:21-Jun-2018 Instruction Type:Patient Education How to access health informa tion online - Detail Indication:Non-smoker Start:21-Jun-2018 Instruction Type:Patient Education Patient Instructions Indication:Non-smoker Start:21-Jun-2018 Instruction Type:Provider Instructions for Treatment How to access health informa tion online Indication:Non-smoker Start:10-May-2018 Instruction Type:Patient Education How to access health informa tion online - Detail Indication:Non-smoker Start:10-May-2018 Instruction Type:Patient Education Patient Instructions Indication:BMI 35.0-35.9,adult Start:10-May-2018 Instruction Type:Provider Instructions for Treatment How to access health informa tion online Indication:Non-smoker Start:14-Dec-2017 Instruction Type:Patient Education How to access health informa tion online - Detail Indication:Non-smoker Start:14-Dec-2017 Instruction Type:Patient Education Patient Instructions Indication:Non-smoker Start:14-Dec-2017 Instruction Type:Provider Instructions for Treatment How to access health informa tion online Indication:Cough Start:23-Jun-2017 Instruction Type:Patient Education How to access health informa tion online - Detail Indication:Cough Start:23-Jun-2017 Instruction Type:Patient Education Patient Instructions Indication:Cough Start:23-Jun-2017 Instruction Type:Provider Instructions for Treatment How to access health informa tion online Indication:Hyperlipidemia, mild Start:08-Jun-2017 Instruction Type:Patient Education How to access health informa tion online - Detail Indication:Hyperlipidemia, mild Start:08-Jun-2017 Instruction Type:Patient Education Patient Instructions Indication:Hyperlipidemia, mild Start:08-Jun-2017 Instruction Type:Provider Instructions for Treatment How to access health informa tion online Indication:Non-smoker Start:28-Apr-2017 Instruction Type:Patient Education How to access health informa tion online - Detail Indication:Non-smoker Start:28-Apr-2017 Instruction Type:Patient Education Patient Instructions Indication:Non-smoker Start:28-Apr-2017 Instruction Type:Provider Instructions for Treatment How to access health informa tion online Indication:BMI 34.0-34.9,adult Start:16-Apr-2017 Instruction Type:Patient Education How to access health informa tion online - Detail Indication:BMI 34.0-34.9,adult Start:16-Apr-2017 Instruction Type:Patient Education Patient Instructions Indication:BMI 34.0-34.9,adult Start:16-Apr-2017 Instruction Type:Provider Instructions for Treatment How to access health informa tion online Indication:Non-smoker Start:15-Jan-2017 Instruction Type:Patient Education How to access health informa tion online - Detail Indication:Non-smoker Start:15-Jan-2017 Instruction Type:Patient Education Patient Instructions Indication:Non-smoker Start:15-Jan-2017 Instruction Type:Provider Instructions for Treatment How to access health informa tion online Indication:BMI 35.0-35.9,adult Start:15-Dec-2016 Instruction Type:Patient Education How to access health informa tion online - Detail Indication:BMI 35.0-35.9,adult Start:15-Dec-2016 Instruction Type:Patient Education Patient Instructions Indication:BMI 35.0-35.9,adult Start:15-Dec-2016 Instruction Type:Provider Instructions for Treatment How to access health informa tion online Indication:Chronic asthma, unspecified asthma severity, uncomplicated Start:12-Sep-2016 Instruction Type:Patient Education How to access health informa tion online - Detail Indication:Chronic asthma, unspecified asthma severity, uncomplicated Start:12-Sep-2016 Instruction Type:Patient Education Patient Instructions Indication:Chronic asthma, unspecified asthma severity, uncomplicated Start:12-Sep-2016 Instruction Type:Provider Instructions for Treatment How to access health informa tion online Indication:Acute asthma flare Start:08-Sep-2016 Instruction Type:Patient Education How to access health informa tion online - Detail Indication:Acute asthma flare Start:08-Sep-2016 Instruction Type:Patient Education Patient Instructions Indication:Acute asthma flare Start:08-Sep-2016 Instruction Type:Provider Instructions for Treatment How to access health informa tion online Indication:Acute asthma flare Start:01-Sep-2016 Instruction Type:Patient Education How to access health informa tion online - Detail Indication:Acute asthma flare Start:01-Sep-2016 Instruction Type:Patient Education Patient Instructions Indication:Acute asthma flare Start:01-Sep-2016 Instruction Type:Provider Instructions for Treatment How to access health informa tion online Indication:Non-smoker Start:25-Aug-2016 Instruction Type:Patient Education How to access health informa tion online - Detail Indication:Non-smoker Start:25-Aug-2016 Instruction Type:Patient Education Patient Instructions Indication:Non-smoker Start:25-Aug-2016 Instruction Type:Provider Instructions for Treatment How to access health informa tion online Indication:BMI 34.0-34.9,adult Start:21-Jul-2016 Instruction Type:Patient Education How to access health informa tion online - Detail Indication:BMI 34.0-34.9,adult Start:21-Jul-2016 Instruction Type:Patient Education Patient Instructions Indication:BMI 34.0-34.9,adult Start:21-Jul-2016 Instruction Type:Provider Instructions for Treatment How to access health informa tion online Indication:Non-smoker Start:15-Apr-2016 Instruction Type:Patient Education How to access health informa tion online - Detail Indication:Non-smoker Start:15-Apr-2016 Instruction Type:Patient Education Patient Instructions Indication:Non-smoker Start:15-Apr-2016 Instruction Type:Provider Instructions for Treatment How to access health informa tion online Indication:Non-smoker Start:13-Mar-2016 Instruction Type:Patient Education How to access health informa tion online - Detail Indication:Non-smoker Start:13-Mar-2016 Instruction Type:Patient Education Patient Instructions Indication:Non-smoker Start:13-Mar-2016 Instruction Type:Provider Instructions for Treatment How to access health informa tion online Indication:Hypertension Start:07-Feb-2016 Instruction Type:Patient Education How to access health informa tion online - Detail Indication:Hypertension Start:07-Feb-2016 Instruction Type:Patient Education Patient Instructions Indication:Hypertension Start:07-Feb-2016 Instruction Type:Provider Instructions for Treatment How to access health informa tion online Indication:Sore throat Start:23-Jan-2016 Instruction Type:Patient Education How to access health informa tion online - Detail Indication:Sore throat Start:23-Jan-2016 Instruction Type:Patient Education Patient Instructions Indication:Sore throat Start:23-Jan-2016 Instruction Type:Provider Instructions for Treatment How to access health informa tion online Indication:Non-smoker Start:08-Jan-2016 Instruction Type:Patient Education How to access health informa tion online - Detail Indication:Non-smoker Start:08-Jan-2016 Instruction Type:Patient Education Patient Instructions Indication:Non-smoker Start:08-Jan-2016 Instruction Type:Provider Instructions for Treatment [facility]; [facility] Work Phone: Instructions* Name Dates Details Patient Instructions Indication:Non-smoker Start:28-Apr-2022 Instruction Type:Provider Instructions for Treatment How to Access Health Informa tion Online using Patient Portal and [employer]rd [employer] Apps Indication:Non-smoker Start:28-Apr-2022 Instruction Type:Patient Education Patient Instructions Indication:BMI 37.0-37.9, adult Start:06-May-2021 Instruction Type:Provider Instructions for Treatment How to Access Health Informa tion Online using Patient Portal and [employer]rd [employer] Apps Indication:BMI 37.0-37.9, adult Start:06-May-2021 Instruction Type:Patient Education Patient Instructions Indication:BMI 34.0-34.9,adult Start:28-Dec-2020 Instruction Type:Provider Instructions for Treatment How to Access Health Informa tion Online using Patient Portal and [employer]rd [employer] Apps Indication:BMI 34.0-34.9,adult Start:28-Dec-2020 Instruction Type:Patient Education Patient Instructions Indication:Non-smoker Start:01-Nov-2020 Instruction Type:Provider Instructions for Treatment How to Access Health Informa tion Online using Patient Portal and [employer]rd [employer] Apps Indication:Non-smoker Start:01-Nov-2020 Instruction Type:Patient Education Patient Instructions Indication:Non-smoker Start:09-Aug-2020 Instruction Type:Provider Instructions for Treatment How to Access Health Informa tion Online using Patient Portal and [employer]rd [employer] Apps Indication:Non-smoker Start:09-Aug-2020 Instruction Type:Patient Education How to Access Health Informa tion Online using Patient Portal and [employer]rd [employer] Apps Indication:Non-smoker Start:06-Aug-2020 Instruction Type:Patient Education Patient Instructions Indication:Non-smoker Start:06-Aug-2020 Instruction Type:Provider Instructions for Treatment How to Access Health Informa tion Online using Patient Portal and [employer]rd [employer] Apps Indication:Non-smoker Start:09-Jul-2020 Instruction Type:Patient Education Patient Instructions Indication:Non-smoker Start:09-Jul-2020 Instruction Type:Provider Instructions for Treatment How to access health informa tion online Indication:Non-smoker Start:08-Jul-2019 Instruction Type:Patient Education How to access health informa tion online - Detail Indication:Non-smoker Start:08-Jul-2019 Instruction Type:Patient Education Patient Instructions Indication:Non-smoker Start:08-Jul-2019 Instruction Type:Provider Instructions for Treatment How to access health informa tion online Indication:Non-smoker Start:28-Apr-2019 Instruction Type:Patient Education How to access health informa tion online - Detail Indication:Non-smoker Start:28-Apr-2019 Instruction Type:Patient Education Patient Instructions Indication:Non-smoker Start:28-Apr-2019 Instruction Type:Provider Instructions for Treatment How to access health informa tion online Indication:Abnormal glucose tolerance test Start:10-Mar-2019 Instruction Type:Patient Education How to access health informa tion online - Detail Indication:Abnormal glucose tolerance test Start:10-Mar-2019 Instruction Type:Patient Education Patient Instructions Indication:Abnormal glucose tolerance test Start:10-Mar-2019 Instruction Type:Provider Instructions for Treatment How to access health informa tion online Indication:Abnormal glucose tolerance test Start:25-Oct-2018 Instruction Type:Patient Education How to access health informa tion online - Detail Indication:Abnormal glucose tolerance test Start:25-Oct-2018 Instruction Type:Patient Education Patient Instructions Indication:Abnormal glucose tolerance test Start:25-Oct-2018 Instruction Type:Provider Instructions for Treatment How to access health informa tion online - Detail Indication:Bronchitis Start:27-Sep-2018 Instruction Type:Patient Education Patient Instructions Indication:BMI 36.0-36.9,adult Start:27-Sep-2018 Instruction Type:Provider Instructions for Treatment How to access health informa tion online Indication:Non-smoker Start:21-Jun-2018 Instruction Type:Patient Education How to access health informa tion online - Detail Indication:Non-smoker Start:21-Jun-2018 Instruction Type:Patient Education Patient Instructions Indication:Non-smoker Start:21-Jun-2018 Instruction Type:Provider Instructions for Treatment How to access health informa tion online Indication:Non-smoker Start:10-May-2018 Instruction Type:Patient Education How to access health informa tion online - Detail Indication:Non-smoker Start:10-May-2018 Instruction Type:Patient Education Patient Instructions Indication:BMI 35.0-35.9,adult Start:10-May-2018 Instruction Type:Provider Instructions for Treatment How to access health informa tion online Indication:Non-smoker Start:14-Dec-2017 Instruction Type:Patient Education How to access health informa tion online - Detail Indication:Non-smoker Start:14-Dec-2017 Instruction Type:Patient Education Patient Instructions Indication:Non-smoker Start:14-Dec-2017 Instruction Type:Provider Instructions for Treatment How to access health informa tion online Indication:Cough Start:23-Jun-2017 Instruction Type:Patient Education How to access health informa tion online - Detail Indication:Cough Start:23-Jun-2017 Instruction Type:Patient Education Patient Instructions Indication:Cough Start:23-Jun-2017 Instruction Type:Provider Instructions for Treatment How to access health informa tion online Indication:Hyperlipidemia, mild Start:08-Jun-2017 Instruction Type:Patient Education How to access health informa tion online - Detail Indication:Hyperlipidemia, mild Start:08-Jun-2017 Instruction Type:Patient Education Patient Instructions Indication:Hyperlipidemia, mild Start:08-Jun-2017 Instruction Type:Provider Instructions for Treatment How to access health informa tion online Indication:Non-smoker Start:28-Apr-2017 Instruction Type:Patient Education How to access health informa tion online - Detail Indication:Non-smoker Start:28-Apr-2017 Instruction Type:Patient Education Patient Instructions Indication:Non-smoker Start:28-Apr-2017 Instruction Type:Provider Instructions for Treatment How to access health informa tion online Indication:BMI 34.0-34.9,adult Start:16-Apr-2017 Instruction Type:Patient Education How to access health informa tion online - Detail Indication:BMI 34.0-34.9,adult Start:16-Apr-2017 Instruction Type:Patient Education Patient Instructions Indication:BMI 34.0-34.9,adult Start:16-Apr-2017 Instruction Type:Provider Instructions for Treatment How to access health informa tion online Indication:Non-smoker Start:15-Jan-2017 Instruction Type:Patient Education How to access health informa tion online - Detail Indication:Non-smoker Start:15-Jan-2017 Instruction Type:Patient Education Patient Instructions Indication:Non-smoker Start:15-Jan-2017 Instruction Type:Provider Instructions for Treatment How to access health informa tion online Indication:BMI 35.0-35.9,adult Start:15-Dec-2016 Instruction Type:Patient Education How to access health informa tion online - Detail Indication:BMI 35.0-35.9,adult Start:15-Dec-2016 Instruction Type:Patient Education Patient Instructions Indication:BMI 35.0-35.9,adult Start:15-Dec-2016 Instruction Type:Provider Instructions for Treatment How to access health informa tion online Indication:Chronic asthma, unspecified asthma severity, uncomplicated Start:12-Sep-2016 Instruction Type:Patient Education How to access health informa tion online - Detail Indication:Chronic asthma, unspecified asthma severity, uncomplicated Start:12-Sep-2016 Instruction Type:Patient Education Patient Instructions Indication:Chronic asthma, unspecified asthma severity, uncomplicated Start:12-Sep-2016 Instruction Type:Provider Instructions for Treatment How to access health informa tion online Indication:Acute asthma flare Start:08-Sep-2016 Instruction Type:Patient Education How to access health informa tion online - Detail Indication:Acute asthma flare Start:08-Sep-2016 Instruction Type:Patient Education Patient Instructions Indication:Acute asthma flare Start:08-Sep-2016 Instruction Type:Provider Instructions for Treatment How to access health informa tion online Indication:Acute asthma flare Start:01-Sep-2016 Instruction Type:Patient Education How to access health informa tion online - Detail Indication:Acute asthma flare Start:01-Sep-2016 Instruction Type:Patient Education Patient Instructions Indication:Acute asthma flare Start:01-Sep-2016 Instruction Type:Provider Instructions for Treatment How to access health informa tion online Indication:Non-smoker Start:25-Aug-2016 Instruction Type:Patient Education How to access health informa tion online - Detail Indication:Non-smoker Start:25-Aug-2016 Instruction Type:Patient Education Patient Instructions Indication:Non-smoker Start:25-Aug-2016 Instruction Type:Provider Instructions for Treatment How to access health informa tion online Indication:BMI 34.0-34.9,adult Start:21-Jul-2016 Instruction Type:Patient Education How to access health informa tion online - Detail Indication:BMI 34.0-34.9,adult Start:21-Jul-2016 Instruction Type:Patient Education Patient Instructions Indication:BMI 34.0-34.9,adult Start:21-Jul-2016 Instruction Type:Provider Instructions for Treatment How to access health informa tion online Indication:Non-smoker Start:15-Apr-2016 Instruction Type:Patient Education How to access health informa tion online - Detail Indication:Non-smoker Start:15-Apr-2016 Instruction Type:Patient Education Patient Instructions Indication:Non-smoker Start:15-Apr-2016 Instruction Type:Provider Instructions for Treatment How to access health informa tion online Indication:Non-smoker Start:13-Mar-2016 Instruction Type:Patient Education How to access health informa tion online - Detail Indication:Non-smoker Start:13-Mar-2016 Instruction Type:Patient Education Patient Instructions Indication:Non-smoker Start:13-Mar-2016 Instruction Type:Provider Instructions for Treatment How to access health informa tion online Indication:Hypertension Start:07-Feb-2016 Instruction Type:Patient Education How to access health informa tion online - Detail Indication:Hypertension Start:07-Feb-2016 Instruction Type:Patient Education Patient Instructions Indication:Hypertension Start:07-Feb-2016 Instruction Type:Provider Instructions for Treatment How to access health informa tion online Indication:Sore throat Start:23-Jan-2016 Instruction Type:Patient Education How to access health informa tion online - Detail Indication:Sore throat Start:23-Jan-2016 Instruction Type:Patient Education Patient Instructions Indication:Sore throat Start:23-Jan-2016 Instruction Type:Provider Instructions for Treatment How to access health informa tion online Indication:Non-smoker Start:08-Jan-2016 Instruction Type:Patient Education How to access health informa tion online - Detail Indication:Non-smoker Start:08-Jan-2016 Instruction Type:Patient Education Patient Instructions Indication:Non-smoker Start:08-Jan-2016 Instruction Type:Provider Instructions for Treatment [facility]; [facility] Work Phone: Instructions* Name Dates Details Patient Instructions Indication:Non-smoker Start:28-Apr-2022 Instruction Type:Provider Instructions for Treatment How to Access Health Informa tion Online using Patient Portal and [employer]rd [employer] Apps Indication:Non-smoker Start:28-Apr-2022 Instruction Type:Patient Education Patient Instructions Indication:BMI 37.0-37.9, adult Start:06-May-2021 Instruction Type:Provider Instructions for Treatment How to Access Health Informa tion Online using Patient Portal and [employer]rd [employer] Apps Indication:BMI 37.0-37.9, adult Start:06-May-2021 Instruction Type:Patient Education Patient Instructions Indication:BMI 34.0-34.9,adult Start:28-Dec-2020 Instruction Type:Provider Instructions for Treatment How to Access Health Informa tion Online using Patient Portal and [employer] Apps Indication:BMI 34.0-34.9,adult Start:28-Dec-2020 Instruction Type:Patient Education Patient Instructions Indication:Non-smoker Start:01-Nov-2020 Instruction Type:Provider Instructions for Treatment How to Access Health Informa tion Online using Patient Portal and [employer] Apps Indication:Non-smoker Start:01-Nov-2020 Instruction Type:Patient Education Patient Instructions Indication:Non-smoker Start:09-Aug-2020 Instruction Type:Provider Instructions for Treatment How to Access Health Informa tion Online using Patient Portal and [employer] Apps Indication:Non-smoker Start:09-Aug-2020 Instruction Type:Patient Education How to Access Health Informa tion Online using Patient Portal and [employer] Apps Indication:Non-smoker Start:06-Aug-2020 Instruction Type:Patient Education Patient Instructions Indication:Non-smoker Start:06-Aug-2020 Instruction Type:Provider Instructions for Treatment How to Access Health Informa tion Online using Patient Portal and [employer] Apps Indication:Non-smoker Start:09-Jul-2020 Instruction Type:Patient Education Patient Instructions Indication:Non-smoker Start:09-Jul-2020 Instruction Type:Provider Instructions for Treatment How to access health informa tion online Indication:Non-smoker Start:08-Jul-2019 Instruction Type:Patient Education How to access health informa tion online - Detail Indication:Non-smoker Start:08-Jul-2019 Instruction Type:Patient Education Patient Instructions Indication:Non-smoker Start:08-Jul-2019 Instruction Type:Provider Instructions for Treatment How to access health informa tion online Indication:Non-smoker Start:28-Apr-2019 Instruction Type:Patient Education How to access health informa tion online - Detail Indication:Non-smoker Start:28-Apr-2019 Instruction Type:Patient Education Patient Instructions Indication:Non-smoker Start:28-Apr-2019 Instruction Type:Provider Instructions for Treatment How to access health informa tion online Indication:Abnormal glucose tolerance test Start:10-Mar-2019 Instruction Type:Patient Education How to access health informa tion online - Detail Indication:Abnormal glucose tolerance test Start:10-Mar-2019 Instruction Type:Patient Education Patient Instructions Indication:Abnormal glucose tolerance test Start:10-Mar-2019 Instruction Type:Provider Instructions for Treatment How to access health informa tion online Indication:Abnormal glucose tolerance test Start:25-Oct-2018 Instruction Type:Patient Education How to access health informa tion online - Detail Indication:Abnormal glucose tolerance test Start:25-Oct-2018 Instruction Type:Patient Education Patient Instructions Indication:Abnormal glucose tolerance test Start:25-Oct-2018 Instruction Type:Provider Instructions for Treatment How to access health informa tion online - Detail Indication:Bronchitis Start:27-Sep-2018 Instruction Type:Patient Education Patient Instructions Indication:BMI 36.0-36.9,adult Start:27-Sep-2018 Instruction Type:Provider Instructions for Treatment How to access health informa tion online Indication:Non-smoker Start:21-Jun-2018 Instruction Type:Patient Education How to access health informa tion online - Detail Indication:Non-smoker Start:21-Jun-2018 Instruction Type:Patient Education Patient Instructions Indication:Non-smoker Start:21-Jun-2018 Instruction Type:Provider Instructions for Treatment How to access health informa tion online Indication:Non-smoker Start:10-May-2018 Instruction Type:Patient Education How to access health informa tion online - Detail Indication:Non-smoker Start:10-May-2018 Instruction Type:Patient Education Patient Instructions Indication:BMI 35.0-35.9,adult Start:10-May-2018 Instruction Type:Provider Instructions for Treatment How to access health informa tion online Indication:Non-smoker Start:14-Dec-2017 Instruction Type:Patient Education How to access health informa tion online - Detail Indication:Non-smoker Start:14-Dec-2017 Instruction Type:Patient Education Patient Instructions Indication:Non-smoker Start:14-Dec-2017 Instruction Type:Provider Instructions for Treatment How to access health informa tion online Indication:Cough Start:23-Jun-2017 Instruction Type:Patient Education How to access health informa tion online - Detail Indication:Cough Start:23-Jun-2017 Instruction Type:Patient Education Patient Instructions Indication:Cough Start:23-Jun-2017 Instruction Type:Provider Instructions for Treatment How to access health informa tion online Indication:Hyperlipidemia, mild Start:08-Jun-2017 Instruction Type:Patient Education How to access health informa tion online - Detail Indication:Hyperlipidemia, mild Start:08-Jun-2017 Instruction Type:Patient Education Patient Instructions Indication:Hyperlipidemia, mild Start:08-Jun-2017 Instruction Type:Provider Instructions for Treatment How to access health informa tion online Indication:Non-smoker Start:28-Apr-2017 Instruction Type:Patient Education How to access health informa tion online - Detail Indication:Non-smoker Start:28-Apr-2017 Instruction Type:Patient Education Patient Instructions Indication:Non-smoker Start:28-Apr-2017 Instruction Type:Provider Instructions for Treatment How to access health informa tion online Indication:BMI 34.0-34.9,adult Start:16-Apr-2017 Instruction Type:Patient Education How to access health informa tion online - Detail Indication:BMI 34.0-34.9,adult Start:16-Apr-2017 Instruction Type:Patient Education Patient Instructions Indication:BMI 34.0-34.9,adult Start:16-Apr-2017 Instruction Type:Provider Instructions for Treatment How to access health informa tion online Indication:Non-smoker Start:15-Jan-2017 Instruction Type:Patient Education How to access health informa tion online - Detail Indication:Non-smoker Start:15-Jan-2017 Instruction Type:Patient Education Patient Instructions Indication:Non-smoker Start:15-Jan-2017 Instruction Type:Provider Instructions for Treatment How to access health informa tion online Indication:BMI 35.0-35.9,adult Start:15-Dec-2016 Instruction Type:Patient Education How to access health informa tion online - Detail Indication:BMI 35.0-35.9,adult Start:15-Dec-2016 Instruction Type:Patient Education Patient Instructions Indication:BMI 35.0-35.9,adult Start:15-Dec-2016 Instruction Type:Provider Instructions for Treatment How to access health informa tion online Indication:Chronic asthma, unspecified asthma severity, uncomplicated Start:12-Sep-2016 Instruction Type:Patient Education How to access health informa tion online - Detail Indication:Chronic asthma, unspecified asthma severity, uncomplicated Start:12-Sep-2016 Instruction Type:Patient Education Patient Instructions Indication:Chronic asthma, unspecified asthma severity, uncomplicated Start:12-Sep-2016 Instruction Type:Provider Instructions for Treatment How to access health informa tion online Indication:Acute asthma flare Start:08-Sep-2016 Instruction Type:Patient Education How to access health informa tion online - Detail Indication:Acute asthma flare Start:08-Sep-2016 Instruction Type:Patient Education Patient Instructions Indication:Acute asthma flare Start:08-Sep-2016 Instruction Type:Provider Instructions for Treatment How to access health informa tion online Indication:Acute asthma flare Start:01-Sep-2016 Instruction Type:Patient Education How to access health informa tion online - Detail Indication:Acute asthma flare Start:01-Sep-2016 Instruction Type:Patient Education Patient Instructions Indication:Acute asthma flare Start:01-Sep-2016 Instruction Type:Provider Instructions for Treatment How to access health informa tion online Indication:Non-smoker Start:25-Aug-2016 Instruction Type:Patient Education How to access health informa tion online - Detail Indication:Non-smoker Start:25-Aug-2016 Instruction Type:Patient Education Patient Instructions Indication:Non-smoker Start:25-Aug-2016 Instruction Type:Provider Instructions for Treatment How to access health informa tion online Indication:BMI 34.0-34.9,adult Start:21-Jul-2016 Instruction Type:Patient Education How to access health informa tion online - Detail Indication:BMI 34.0-34.9,adult Start:21-Jul-2016 Instruction Type:Patient Education Patient Instructions Indication:BMI 34.0-34.9,adult Start:21-Jul-2016 Instruction Type:Provider Instructions for Treatment How to access health informa tion online Indication:Non-smoker Start:15-Apr-2016 Instruction Type:Patient Education How to access health informa tion online - Detail Indication:Non-smoker Start:15-Apr-2016 Instruction Type:Patient Education Patient Instructions Indication:Non-smoker Start:15-Apr-2016 Instruction Type:Provider Instructions for Treatment How to access health informa tion online Indication:Non-smoker Start:13-Mar-2016 Instruction Type:Patient Education How to access health informa tion online - Detail Indication:Non-smoker Start:13-Mar-2016 Instruction Type:Patient Education Patient Instructions Indication:Non-smoker Start:13-Mar-2016 Instruction Type:Provider Instructions for Treatment How to access health informa tion online Indication:Hypertension Start:07-Feb-2016 Instruction Type:Patient Education How to access health informa tion online - Detail Indication:Hypertension Start:07-Feb-2016 Instruction Type:Patient Education Patient Instructions Indication:Hypertension Start:07-Feb-2016 Instruction Type:Provider Instructions for Treatment How to access health informa tion online Indication:Sore throat Start:23-Jan-2016 Instruction Type:Patient Education How to access health informa tion online - Detail Indication:Sore throat Start:23-Jan-2016 Instruction Type:Patient Education Patient Instructions Indication:Sore throat Start:23-Jan-2016 Instruction Type:Provider Instructions for Treatment How to access health informa tion online Indication:Non-smoker Start:08-Jan-2016 Instruction Type:Patient Education How to access health informa tion online - Detail Indication:Non-smoker Start:08-Jan-2016 Instruction Type:Patient Education Patient Instructions Indication:Non-smoker Start:08-Jan-2016 Instruction Type:Provider Instructions for Treatment [facility]; [facility] Work Phone: Instructions* Name Dates Details Patient Instructions Indication:Non-smoker Start:28-Apr-2022 Instruction Type:Provider Instructions for Treatment How to Access Health Informa tion Online using Patient Portal and [employer]rd [employer] Apps Indication:Non-smoker Start:28-Apr-2022 Instruction Type:Patient Education Patient Instructions Indication:BMI 37.0-37.9, adult Start:06-May-2021 Instruction Type:Provider Instructions for Treatment How to Access Health Informa tion Online using Patient Portal and [employer] Apps Indication:BMI 37.0-37.9, adult Start:06-May-2021 Instruction Type:Patient Education Patient Instructions Indication:BMI 34.0-34.9,adult Start:28-Dec-2020 Instruction Type:Provider Instructions for Treatment How to Access Health Informa tion Online using Patient Portal and [employer]rd [employer] Apps Indication:BMI 34.0-34.9,adult Start:28-Dec-2020 Instruction Type:Patient Education Patient Instructions Indication:Non-smoker Start:01-Nov-2020 Instruction Type:Provider Instructions for Treatment How to Access Health Informa tion Online using Patient Portal and [employer] Apps Indication:Non-smoker Start:01-Nov-2020 Instruction Type:Patient Education Patient Instructions Indication:Non-smoker Start:09-Aug-2020 Instruction Type:Provider Instructions for Treatment How to Access Health Informa tion Online using Patient Portal and [employer] Apps Indication:Non-smoker Start:09-Aug-2020 Instruction Type:Patient Education How to Access Health Informa tion Online using Patient Portal and [employer] Apps Indication:Non-smoker Start:06-Aug-2020 Instruction Type:Patient Education Patient Instructions Indication:Non-smoker Start:06-Aug-2020 Instruction Type:Provider Instructions for Treatment How to Access Health Informa tion Online using Patient Portal and [employer] Apps Indication:Non-smoker Start:09-Jul-2020 Instruction Type:Patient Education Patient Instructions Indication:Non-smoker Start:09-Jul-2020 Instruction Type:Provider Instructions for Treatment How to access health informa tion online Indication:Non-smoker Start:08-Jul-2019 Instruction Type:Patient Education How to access health informa tion online - Detail Indication:Non-smoker Start:08-Jul-2019 Instruction Type:Patient Education Patient Instructions Indication:Non-smoker Start:08-Jul-2019 Instruction Type:Provider Instructions for Treatment How to access health informa tion online Indication:Non-smoker Start:28-Apr-2019 Instruction Type:Patient Education How to access health informa tion online - Detail Indication:Non-smoker Start:28-Apr-2019 Instruction Type:Patient Education Patient Instructions Indication:Non-smoker Start:28-Apr-2019 Instruction Type:Provider Instructions for Treatment How to access health informa tion online Indication:Abnormal glucose tolerance test Start:10-Mar-2019 Instruction Type:Patient Education How to access health informa tion online - Detail Indication:Abnormal glucose tolerance test Start:10-Mar-2019 Instruction Type:Patient Education Patient Instructions Indication:Abnormal glucose tolerance test Start:10-Mar-2019 Instruction Type:Provider Instructions for Treatment How to access health informa tion online Indication:Abnormal glucose tolerance test Start:25-Oct-2018 Instruction Type:Patient Education How to access health informa tion online - Detail Indication:Abnormal glucose tolerance test Start:25-Oct-2018 Instruction Type:Patient Education Patient Instructions Indication:Abnormal glucose tolerance test Start:25-Oct-2018 Instruction Type:Provider Instructions for Treatment How to access health informa tion online - Detail Indication:Bronchitis Start:27-Sep-2018 Instruction Type:Patient Education Patient Instructions Indication:BMI 36.0-36.9,adult Start:27-Sep-2018 Instruction Type:Provider Instructions for Treatment How to access health informa tion online Indication:Non-smoker Start:21-Jun-2018 Instruction Type:Patient Education How to access health informa tion online - Detail Indication:Non-smoker Start:21-Jun-2018 Instruction Type:Patient Education Patient Instructions Indication:Non-smoker Start:21-Jun-2018 Instruction Type:Provider Instructions for Treatment How to access health informa tion online Indication:Non-smoker Start:10-May-2018 Instruction Type:Patient Education How to access health informa tion online - Detail Indication:Non-smoker Start:10-May-2018 Instruction Type:Patient Education Patient Instructions Indication:BMI 35.0-35.9,adult Start:10-May-2018 Instruction Type:Provider Instructions for Treatment How to access health informa tion online Indication:Non-smoker Start:14-Dec-2017 Instruction Type:Patient Education How to access health informa tion online - Detail Indication:Non-smoker Start:14-Dec-2017 Instruction Type:Patient Education Patient Instructions Indication:Non-smoker Start:14-Dec-2017 Instruction Type:Provider Instructions for Treatment How to access health informa tion online Indication:Cough Start:23-Jun-2017 Instruction Type:Patient Education How to access health informa tion online - Detail Indication:Cough Start:23-Jun-2017 Instruction Type:Patient Education Patient Instructions Indication:Cough Start:23-Jun-2017 Instruction Type:Provider Instructions for Treatment How to access health informa tion online Indication:Hyperlipidemia, mild Start:08-Jun-2017 Instruction Type:Patient Education How to access health informa tion online - Detail Indication:Hyperlipidemia, mild Start:08-Jun-2017 Instruction Type:Patient Education Patient Instructions Indication:Hyperlipidemia, mild Start:08-Jun-2017 Instruction Type:Provider Instructions for Treatment How to access health informa tion online Indication:Non-smoker Start:28-Apr-2017 Instruction Type:Patient Education How to access health informa tion online - Detail Indication:Non-smoker Start:28-Apr-2017 Instruction Type:Patient Education Patient Instructions Indication:Non-smoker Start:28-Apr-2017 Instruction Type:Provider Instructions for Treatment How to access health informa tion online Indication:BMI 34.0-34.9,adult Start:16-Apr-2017 Instruction Type:Patient Education How to access health informa tion online - Detail Indication:BMI 34.0-34.9,adult Start:16-Apr-2017 Instruction Type:Patient Education Patient Instructions Indication:BMI 34.0-34.9,adult Start:16-Apr-2017 Instruction Type:Provider Instructions for Treatment How to access health informa tion online Indication:Non-smoker Start:15-Jan-2017 Instruction Type:Patient Education How to access health informa tion online - Detail Indication:Non-smoker Start:15-Jan-2017 Instruction Type:Patient Education Patient Instructions Indication:Non-smoker Start:15-Jan-2017 Instruction Type:Provider Instructions for Treatment How to access health informa tion online Indication:BMI 35.0-35.9,adult Start:15-Dec-2016 Instruction Type:Patient Education How to access health informa tion online - Detail Indication:BMI 35.0-35.9,adult Start:15-Dec-2016 Instruction Type:Patient Education Patient Instructions Indication:BMI 35.0-35.9,adult Start:15-Dec-2016 Instruction Type:Provider Instructions for Treatment How to access health informa tion online Indication:Chronic asthma, unspecified asthma severity, uncomplicated Start:12-Sep-2016 Instruction Type:Patient Education How to access health informa tion online - Detail Indication:Chronic asthma, unspecified asthma severity, uncomplicated Start:12-Sep-2016 Instruction Type:Patient Education Patient Instructions Indication:Chronic asthma, unspecified asthma severity, uncomplicated Start:12-Sep-2016 Instruction Type:Provider Instructions for Treatment How to access health informa tion online Indication:Acute asthma flare Start:08-Sep-2016 Instruction Type:Patient Education How to access health informa tion online - Detail Indication:Acute asthma flare Start:08-Sep-2016 Instruction Type:Patient Education Patient Instructions Indication:Acute asthma flare Start:08-Sep-2016 Instruction Type:Provider Instructions for Treatment How to access health informa tion online Indication:Acute asthma flare Start:01-Sep-2016 Instruction Type:Patient Education How to access health informa tion online - Detail Indication:Acute asthma flare Start:01-Sep-2016 Instruction Type:Patient Education Patient Instructions Indication:Acute asthma flare Start:01-Sep-2016 Instruction Type:Provider Instructions for Treatment How to access health informa tion online Indication:Non-smoker Start:25-Aug-2016 Instruction Type:Patient Education How to access health informa tion online - Detail Indication:Non-smoker Start:25-Aug-2016 Instruction Type:Patient Education Patient Instructions Indication:Non-smoker Start:25-Aug-2016 Instruction Type:Provider Instructions for Treatment How to access health informa tion online Indication:BMI 34.0-34.9,adult Start:21-Jul-2016 Instruction Type:Patient Education How to access health informa tion online - Detail Indication:BMI 34.0-34.9,adult Start:21-Jul-2016 Instruction Type:Patient Education Patient Instructions Indication:BMI 34.0-34.9,adult Start:21-Jul-2016 Instruction Type:Provider Instructions for Treatment How to access health informa tion online Indication:Non-smoker Start:15-Apr-2016 Instruction Type:Patient Education How to access health informa tion online - Detail Indication:Non-smoker Start:15-Apr-2016 Instruction Type:Patient Education Patient Instructions Indication:Non-smoker Start:15-Apr-2016 Instruction Type:Provider Instructions for Treatment How to access health informa tion online Indication:Non-smoker Start:13-Mar-2016 Instruction Type:Patient Education How to access health informa tion online - Detail Indication:Non-smoker Start:13-Mar-2016 Instruction Type:Patient Education Patient Instructions Indication:Non-smoker Start:13-Mar-2016 Instruction Type:Provider Instructions for Treatment How to access health informa tion online Indication:Hypertension Start:07-Feb-2016 Instruction Type:Patient Education How to access health informa tion online - Detail Indication:Hypertension Start:07-Feb-2016 Instruction Type:Patient Education Patient Instructions Indication:Hypertension Start:07-Feb-2016 Instruction Type:Provider Instructions for Treatment How to access health informa tion online Indication:Sore throat Start:23-Jan-2016 Instruction Type:Patient Education How to access health informa tion online - Detail Indication:Sore throat Start:23-Jan-2016 Instruction Type:Patient Education Patient Instructions Indication:Sore throat Start:23-Jan-2016 Instruction Type:Provider Instructions for Treatment How to access health informa tion online Indication:Non-smoker Start:08-Jan-2016 Instruction Type:Patient Education How to access health informa tion online - Detail Indication:Non-smoker Start:08-Jan-2016 Instruction Type:Patient Education Patient Instructions Indication:Non-smoker Start:08-Jan-2016 Instruction Type:Provider Instructions for Treatment [facility]; [facility] Work Phone: Instructions* Name Dates Details Patient Instructions Indication:Non-smoker Start:20-Aug-2022 Instruction Type:Provider Instructions for Treatment How to Access Health Informa tion Online using Patient Portal and [employer]rd [employer] Apps Indication:Non-smoker Start:20-Aug-2022 Instruction Type:Patient Education Patient Instructions Indication:Non-smoker Start:28-Apr-2022 Instruction Type:Provider Instructions for Treatment How to Access Health Informa tion Online using Patient Portal and [employer]rd [employer] Apps Indication:Non-smoker Start:28-Apr-2022 Instruction Type:Patient Education Patient Instructions Indication:BMI 37.0-37.9, adult Start:06-May-2021 Instruction Type:Provider Instructions for Treatment How to Access Health Informa tion Online using Patient Portal and [employer]rd [employer] Apps Indication:BMI 37.0-37.9, adult Start:06-May-2021 Instruction Type:Patient Education Patient Instructions Indication:BMI 34.0-34.9,adult Start:28-Dec-2020 Instruction Type:Provider Instructions for Treatment How to Access Health Informa tion Online using Patient Portal and [employer]rd [employer] Apps Indication:BMI 34.0-34.9,adult Start:28-Dec-2020 Instruction Type:Patient Education Patient Instructions Indication:Non-smoker Start:01-Nov-2020 Instruction Type:Provider Instructions for Treatment How to Access Health Informa tion Online using Patient Portal and [employer]rd [employer] Apps Indication:Non-smoker Start:01-Nov-2020 Instruction Type:Patient Education Patient Instructions Indication:Non-smoker Start:09-Aug-2020 Instruction Type:Provider Instructions for Treatment How to Access Health Informa tion Online using Patient Portal and [employer]rd [employer] Apps Indication:Non-smoker Start:09-Aug-2020 Instruction Type:Patient Education How to Access Health Informa tion Online using Patient Portal and [employer]rd [employer] Apps Indication:Non-smoker Start:06-Aug-2020 Instruction Type:Patient Education Patient Instructions Indication:Non-smoker Start:06-Aug-2020 Instruction Type:Provider Instructions for Treatment How to Access Health Informa tion Online using Patient Portal and [employer]rd [employer] Apps Indication:Non-smoker Start:09-Jul-2020 Instruction Type:Patient Education Patient Instructions Indication:Non-smoker Start:09-Jul-2020 Instruction Type:Provider Instructions for Treatment How to access health informa tion online Indication:Non-smoker Start:08-Jul-2019 Instruction Type:Patient Education How to access health informa tion online - Detail Indication:Non-smoker Start:08-Jul-2019 Instruction Type:Patient Education Patient Instructions Indication:Non-smoker Start:08-Jul-2019 Instruction Type:Provider Instructions for Treatment How to access health informa tion online Indication:Non-smoker Start:28-Apr-2019 Instruction Type:Patient Education How to access health informa tion online - Detail Indication:Non-smoker Start:28-Apr-2019 Instruction Type:Patient Education Patient Instructions Indication:Non-smoker Start:28-Apr-2019 Instruction Type:Provider Instructions for Treatment How to access health informa tion online Indication:Abnormal glucose tolerance test Start:10-Mar-2019 Instruction Type:Patient Education How to access health informa tion online - Detail Indication:Abnormal glucose tolerance test Start:10-Mar-2019 Instruction Type:Patient Education Patient Instructions Indication:Abnormal glucose tolerance test Start:10-Mar-2019 Instruction Type:Provider Instructions for Treatment How to access health informa tion online Indication:Abnormal glucose tolerance test Start:25-Oct-2018 Instruction Type:Patient Education How to access health informa tion online - Detail Indication:Abnormal glucose tolerance test Start:25-Oct-2018 Instruction Type:Patient Education Patient Instructions Indication:Abnormal glucose tolerance test Start:25-Oct-2018 Instruction Type:Provider Instructions for Treatment How to access health informa tion online - Detail Indication:Bronchitis Start:27-Sep-2018 Instruction Type:Patient Education Patient Instructions Indication:BMI 36.0-36.9,adult Start:27-Sep-2018 Instruction Type:Provider Instructions for Treatment How to access health informa tion online Indication:Non-smoker Start:21-Jun-2018 Instruction Type:Patient Education How to access health informa tion online - Detail Indication:Non-smoker Start:21-Jun-2018 Instruction Type:Patient Education Patient Instructions Indication:Non-smoker Start:21-Jun-2018 Instruction Type:Provider Instructions for Treatment How to access health informa tion online Indication:Non-smoker Start:10-May-2018 Instruction Type:Patient Education How to access health informa tion online - Detail Indication:Non-smoker Start:10-May-2018 Instruction Type:Patient Education Patient Instructions Indication:BMI 35.0-35.9,adult Start:10-May-2018 Instruction Type:Provider Instructions for Treatment How to access health informa tion online Indication:Non-smoker Start:14-Dec-2017 Instruction Type:Patient Education How to access health informa tion online - Detail Indication:Non-smoker Start:14-Dec-2017 Instruction Type:Patient Education Patient Instructions Indication:Non-smoker Start:14-Dec-2017 Instruction Type:Provider Instructions for Treatment How to access health informa tion online Indication:Cough Start:23-Jun-2017 Instruction Type:Patient Education How to access health informa tion online - Detail Indication:Cough Start:23-Jun-2017 Instruction Type:Patient Education Patient Instructions Indication:Cough Start:23-Jun-2017 Instruction Type:Provider Instructions for Treatment How to access health informa tion online Indication:Hyperlipidemia, mild Start:08-Jun-2017 Instruction Type:Patient Education How to access health informa tion online - Detail Indication:Hyperlipidemia, mild Start:08-Jun-2017 Instruction Type:Patient Education Patient Instructions Indication:Hyperlipidemia, mild Start:08-Jun-2017 Instruction Type:Provider Instructions for Treatment How to access health informa tion online Indication:Non-smoker Start:28-Apr-2017 Instruction Type:Patient Education How to access health informa tion online - Detail Indication:Non-smoker Start:28-Apr-2017 Instruction Type:Patient Education Patient Instructions Indication:Non-smoker Start:28-Apr-2017 Instruction Type:Provider Instructions for Treatment How to access health informa tion online Indication:BMI 34.0-34.9,adult Start:16-Apr-2017 Instruction Type:Patient Education How to access health informa tion online - Detail Indication:BMI 34.0-34.9,adult Start:16-Apr-2017 Instruction Type:Patient Education Patient Instructions Indication:BMI 34.0-34.9,adult Start:16-Apr-2017 Instruction Type:Provider Instructions for Treatment How to access health informa tion online Indication:Non-smoker Start:15-Jan-2017 Instruction Type:Patient Education How to access health informa tion online - Detail Indication:Non-smoker Start:15-Jan-2017 Instruction Type:Patient Education Patient Instructions Indication:Non-smoker Start:15-Jan-2017 Instruction Type:Provider Instructions for Treatment How to access health informa tion online Indication:BMI 35.0-35.9,adult Start:15-Dec-2016 Instruction Type:Patient Education How to access health informa tion online - Detail Indication:BMI 35.0-35.9,adult Start:15-Dec-2016 Instruction Type:Patient Education Patient Instructions Indication:BMI 35.0-35.9,adult Start:15-Dec-2016 Instruction Type:Provider Instructions for Treatment How to access health informa tion online Indication:Chronic asthma, unspecified asthma severity, uncomplicated Start:12-Sep-2016 Instruction Type:Patient Education How to access health informa tion online - Detail Indication:Chronic asthma, unspecified asthma severity, uncomplicated Start:12-Sep-2016 Instruction Type:Patient Education Patient Instructions Indication:Chronic asthma, unspecified asthma severity, uncomplicated Start:12-Sep-2016 Instruction Type:Provider Instructions for Treatment How to access health informa tion online Indication:Acute asthma flare Start:08-Sep-2016 Instruction Type:Patient Education How to access health informa tion online - Detail Indication:Acute asthma flare Start:08-Sep-2016 Instruction Type:Patient Education Patient Instructions Indication:Acute asthma flare Start:08-Sep-2016 Instruction Type:Provider Instructions for Treatment How to access health informa tion online Indication:Acute asthma flare Start:01-Sep-2016 Instruction Type:Patient Education How to access health informa tion online - Detail Indication:Acute asthma flare Start:01-Sep-2016 Instruction Type:Patient Education Patient Instructions Indication:Acute asthma flare Start:01-Sep-2016 Instruction Type:Provider Instructions for Treatment How to access health informa tion online Indication:Non-smoker Start:25-Aug-2016 Instruction Type:Patient Education How to access health informa tion online - Detail Indication:Non-smoker Start:25-Aug-2016 Instruction Type:Patient Education Patient Instructions Indication:Non-smoker Start:25-Aug-2016 Instruction Type:Provider Instructions for Treatment How to access health informa tion online Indication:BMI 34.0-34.9,adult Start:21-Jul-2016 Instruction Type:Patient Education How to access health informa tion online - Detail Indication:BMI 34.0-34.9,adult Start:21-Jul-2016 Instruction Type:Patient Education Patient Instructions Indication:BMI 34.0-34.9,adult Start:21-Jul-2016 Instruction Type:Provider Instructions for Treatment How to access health informa tion online Indication:Non-smoker Start:15-Apr-2016 Instruction Type:Patient Education How to access health informa tion online - Detail Indication:Non-smoker Start:15-Apr-2016 Instruction Type:Patient Education Patient Instructions Indication:Non-smoker Start:15-Apr-2016 Instruction Type:Provider Instructions for Treatment How to access health informa tion online Indication:Non-smoker Start:13-Mar-2016 Instruction Type:Patient Education How to access health informa tion online - Detail Indication:Non-smoker Start:13-Mar-2016 Instruction Type:Patient Education Patient Instructions Indication:Non-smoker Start:13-Mar-2016 Instruction Type:Provider Instructions for Treatment How to access health informa tion online Indication:Hypertension Start:07-Feb-2016 Instruction Type:Patient Education How to access health informa tion online - Detail Indication:Hypertension Start:07-Feb-2016 Instruction Type:Patient Education Patient Instructions Indication:Hypertension Start:07-Feb-2016 Instruction Type:Provider Instructions for Treatment How to access health informa tion online Indication:Sore throat Start:23-Jan-2016 Instruction Type:Patient Education How to access health informa tion online - Detail Indication:Sore throat Start:23-Jan-2016 Instruction Type:Patient Education Patient Instructions Indication:Sore throat Start:23-Jan-2016 Instruction Type:Provider Instructions for Treatment How to access health informa tion online Indication:Non-smoker Start:08-Jan-2016 Instruction Type:Patient Education How to access health informa tion online - Detail Indication:Non-smoker Start:08-Jan-2016 Instruction Type:Patient Education Patient Instructions Indication:Non-smoker Start:08-Jan-2016 Instruction Type:Provider Instructions for Treatment [facility]; [facility] Work Phone: Instructions* Name Dates Details Patient Instructions Indication:Non-smoker Start:20-Aug-2022 Instruction Type:Provider Instructions for Treatment How to Access Health Informa tion Online using Patient Portal and [employer]rd [employer] Apps Indication:Non-smoker Start:20-Aug-2022 Instruction Type:Patient Education Patient Instructions Indication:Non-smoker Start:28-Apr-2022 Instruction Type:Provider Instructions for Treatment How to Access Health Informa tion Online using Patient Portal and [employer]rd [employer] Apps Indication:Non-smoker Start:28-Apr-2022 Instruction Type:Patient Education Patient Instructions Indication:BMI 37.0-37.9, adult Start:06-May-2021 Instruction Type:Provider Instructions for Treatment How to Access Health Informa tion Online using Patient Portal and [employer]rd [employer] Apps Indication:BMI 37.0-37.9, adult Start:06-May-2021 Instruction Type:Patient Education Patient Instructions Indication:BMI 34.0-34.9,adult Start:28-Dec-2020 Instruction Type:Provider Instructions for Treatment How to Access Health Informa tion Online using Patient Portal and [employer]rd [employer] Apps Indication:BMI 34.0-34.9,adult Start:28-Dec-2020 Instruction Type:Patient Education Patient Instructions Indication:Non-smoker Start:01-Nov-2020 Instruction Type:Provider Instructions for Treatment How to Access Health Informa tion Online using Patient Portal and [employer]rd [employer] Apps Indication:Non-smoker Start:01-Nov-2020 Instruction Type:Patient Education Patient Instructions Indication:Non-smoker Start:09-Aug-2020 Instruction Type:Provider Instructions for Treatment How to Access Health Informa tion Online using Patient Portal and [employer]rd [employer] Apps Indication:Non-smoker Start:09-Aug-2020 Instruction Type:Patient Education How to Access Health Informa tion Online using Patient Portal and [employer]rd [employer] Apps Indication:Non-smoker Start:06-Aug-2020 Instruction Type:Patient Education Patient Instructions Indication:Non-smoker Start:06-Aug-2020 Instruction Type:Provider Instructions for Treatment How to Access Health Informa tion Online using Patient Portal and [employer]rd [employer] Apps Indication:Non-smoker Start:09-Jul-2020 Instruction Type:Patient Education Patient Instructions Indication:Non-smoker Start:09-Jul-2020 Instruction Type:Provider Instructions for Treatment How to access health informa tion online Indication:Non-smoker Start:08-Jul-2019 Instruction Type:Patient Education How to access health informa tion online - Detail Indication:Non-smoker Start:08-Jul-2019 Instruction Type:Patient Education Patient Instructions Indication:Non-smoker Start:08-Jul-2019 Instruction Type:Provider Instructions for Treatment How to access health informa tion online Indication:Non-smoker Start:28-Apr-2019 Instruction Type:Patient Education How to access health informa tion online - Detail Indication:Non-smoker Start:28-Apr-2019 Instruction Type:Patient Education Patient Instructions Indication:Non-smoker Start:28-Apr-2019 Instruction Type:Provider Instructions for Treatment How to access health informa tion online Indication:Abnormal glucose tolerance test Start:10-Mar-2019 Instruction Type:Patient Education How to access health informa tion online - Detail Indication:Abnormal glucose tolerance test Start:10-Mar-2019 Instruction Type:Patient Education Patient Instructions Indication:Abnormal glucose tolerance test Start:10-Mar-2019 Instruction Type:Provider Instructions for Treatment How to access health informa tion online Indication:Abnormal glucose tolerance test Start:25-Oct-2018 Instruction Type:Patient Education How to access health informa tion online - Detail Indication:Abnormal glucose tolerance test Start:25-Oct-2018 Instruction Type:Patient Education Patient Instructions Indication:Abnormal glucose tolerance test Start:25-Oct-2018 Instruction Type:Provider Instructions for Treatment How to access health informa tion online - Detail Indication:Bronchitis Start:27-Sep-2018 Instruction Type:Patient Education Patient Instructions Indication:BMI 36.0-36.9,adult Start:27-Sep-2018 Instruction Type:Provider Instructions for Treatment How to access health informa tion online Indication:Non-smoker Start:21-Jun-2018 Instruction Type:Patient Education How to access health informa tion online - Detail Indication:Non-smoker Start:21-Jun-2018 Instruction Type:Patient Education Patient Instructions Indication:Non-smoker Start:21-Jun-2018 Instruction Type:Provider Instructions for Treatment How to access health informa tion online Indication:Non-smoker Start:10-May-2018 Instruction Type:Patient Education How to access health informa tion online - Detail Indication:Non-smoker Start:10-May-2018 Instruction Type:Patient Education Patient Instructions Indication:BMI 35.0-35.9,adult Start:10-May-2018 Instruction Type:Provider Instructions for Treatment How to access health informa tion online Indication:Non-smoker Start:14-Dec-2017 Instruction Type:Patient Education How to access health informa tion online - Detail Indication:Non-smoker Start:14-Dec-2017 Instruction Type:Patient Education Patient Instructions Indication:Non-smoker Start:14-Dec-2017 Instruction Type:Provider Instructions for Treatment How to access health informa tion online Indication:Cough Start:23-Jun-2017 Instruction Type:Patient Education How to access health informa tion online - Detail Indication:Cough Start:23-Jun-2017 Instruction Type:Patient Education Patient Instructions Indication:Cough Start:23-Jun-2017 Instruction Type:Provider Instructions for Treatment How to access health informa tion online Indication:Hyperlipidemia, mild Start:08-Jun-2017 Instruction Type:Patient Education How to access health informa tion online - Detail Indication:Hyperlipidemia, mild Start:08-Jun-2017 Instruction Type:Patient Education Patient Instructions Indication:Hyperlipidemia, mild Start:08-Jun-2017 Instruction Type:Provider Instructions for Treatment How to access health informa tion online Indication:Non-smoker Start:28-Apr-2017 Instruction Type:Patient Education How to access health informa tion online - Detail Indication:Non-smoker Start:28-Apr-2017 Instruction Type:Patient Education Patient Instructions Indication:Non-smoker Start:28-Apr-2017 Instruction Type:Provider Instructions for Treatment How to access health informa tion online Indication:BMI 34.0-34.9,adult Start:16-Apr-2017 Instruction Type:Patient Education How to access health informa tion online - Detail Indication:BMI 34.0-34.9,adult Start:16-Apr-2017 Instruction Type:Patient Education Patient Instructions Indication:BMI 34.0-34.9,adult Start:16-Apr-2017 Instruction Type:Provider Instructions for Treatment How to access health informa tion online Indication:Non-smoker Start:15-Jan-2017 Instruction Type:Patient Education How to access health informa tion online - Detail Indication:Non-smoker Start:15-Jan-2017 Instruction Type:Patient Education Patient Instructions Indication:Non-smoker Start:15-Jan-2017 Instruction Type:Provider Instructions for Treatment How to access health informa tion online Indication:BMI 35.0-35.9,adult Start:15-Dec-2016 Instruction Type:Patient Education How to access health informa tion online - Detail Indication:BMI 35.0-35.9,adult Start:15-Dec-2016 Instruction Type:Patient Education Patient Instructions Indication:BMI 35.0-35.9,adult Start:15-Dec-2016 Instruction Type:Provider Instructions for Treatment How to access health informa tion online Indication:Chronic asthma, unspecified asthma severity, uncomplicated Start:12-Sep-2016 Instruction Type:Patient Education How to access health informa tion online - Detail Indication:Chronic asthma, unspecified asthma severity, uncomplicated Start:12-Sep-2016 Instruction Type:Patient Education Patient Instructions Indication:Chronic asthma, unspecified asthma severity, uncomplicated Start:12-Sep-2016 Instruction Type:Provider Instructions for Treatment How to access health informa tion online Indication:Acute asthma flare Start:08-Sep-2016 Instruction Type:Patient Education How to access health informa tion online - Detail Indication:Acute asthma flare Start:08-Sep-2016 Instruction Type:Patient Education Patient Instructions Indication:Acute asthma flare Start:08-Sep-2016 Instruction Type:Provider Instructions for Treatment How to access health informa tion online Indication:Acute asthma flare Start:01-Sep-2016 Instruction Type:Patient Education How to access health informa tion online - Detail Indication:Acute asthma flare Start:01-Sep-2016 Instruction Type:Patient Education Patient Instructions Indication:Acute asthma flare Start:01-Sep-2016 Instruction Type:Provider Instructions for Treatment How to access health informa tion online Indication:Non-smoker Start:25-Aug-2016 Instruction Type:Patient Education How to access health informa tion online - Detail Indication:Non-smoker Start:25-Aug-2016 Instruction Type:Patient Education Patient Instructions Indication:Non-smoker Start:25-Aug-2016 Instruction Type:Provider Instructions for Treatment How to access health informa tion online Indication:BMI 34.0-34.9,adult Start:21-Jul-2016 Instruction Type:Patient Education How to access health informa tion online - Detail Indication:BMI 34.0-34.9,adult Start:21-Jul-2016 Instruction Type:Patient Education Patient Instructions Indication:BMI 34.0-34.9,adult Start:21-Jul-2016 Instruction Type:Provider Instructions for Treatment How to access health informa tion online Indication:Non-smoker Start:15-Apr-2016 Instruction Type:Patient Education How to access health informa tion online - Detail Indication:Non-smoker Start:15-Apr-2016 Instruction Type:Patient Education Patient Instructions Indication:Non-smoker Start:15-Apr-2016 Instruction Type:Provider Instructions for Treatment How to access health informa tion online Indication:Non-smoker Start:13-Mar-2016 Instruction Type:Patient Education How to access health informa tion online - Detail Indication:Non-smoker Start:13-Mar-2016 Instruction Type:Patient Education Patient Instructions Indication:Non-smoker Start:13-Mar-2016 Instruction Type:Provider Instructions for Treatment How to access health informa tion online Indication:Hypertension Start:07-Feb-2016 Instruction Type:Patient Education How to access health informa tion online - Detail Indication:Hypertension Start:07-Feb-2016 Instruction Type:Patient Education Patient Instructions Indication:Hypertension Start:07-Feb-2016 Instruction Type:Provider Instructions for Treatment How to access health informa tion online Indication:Sore throat Start:23-Jan-2016 Instruction Type:Patient Education How to access health informa tion online - Detail Indication:Sore throat Start:23-Jan-2016 Instruction Type:Patient Education Patient Instructions Indication:Sore throat Start:23-Jan-2016 Instruction Type:Provider Instructions for Treatment How to access health informa tion online Indication:Non-smoker Start:08-Jan-2016 Instruction Type:Patient Education How to access health informa tion online - Detail Indication:Non-smoker Start:08-Jan-2016 Instruction Type:Patient Education Patient Instructions Indication:Non-smoker Start:08-Jan-2016 Instruction Type:Provider Instructions for Treatment [facility]; [facility] Work Phone: Instructions* Name Dates Details Patient Instructions Indication:BMI 33.0-33.9,adult Start:10-Sep-2022 Instruction Type:Provider Instructions for Treatment How to Access Health Informa tion Online using Patient Portal and 3rd [employer] Apps Indication:BMI 33.0-33.9,adult Start:10-Sep-2022 Instruction Type:Patient Education Patient Instructions Indication:Non-smoker Start:20-Aug-2022 Instruction Type:Provider Instructions for Treatment How to Access Health Informa tion Online using Patient Portal and [employer]rd [employer] Apps Indication:Non-smoker Start:20-Aug-2022 Instruction Type:Patient Education Patient Instructions Indication:Non-smoker Start:28-Apr-2022 Instruction Type:Provider Instructions for Treatment How to Access Health Informa tion Online using Patient Portal and [employer]rd [employer] Apps Indication:Non-smoker Start:28-Apr-2022 Instruction Type:Patient Education Patient Instructions Indication:BMI 37.0-37.9, adult Start:06-May-2021 Instruction Type:Provider Instructions for Treatment How to Access Health Informa tion Online using Patient Portal and [employer]rd [employer] Apps Indication:BMI 37.0-37.9, adult Start:06-May-2021 Instruction Type:Patient Education Patient Instructions Indication:BMI 34.0-34.9,adult Start:28-Dec-2020 Instruction Type:Provider Instructions for Treatment How to Access Health Informa tion Online using Patient Portal and [employer]rd [employer] Apps Indication:BMI 34.0-34.9,adult Start:28-Dec-2020 Instruction Type:Patient Education Patient Instructions Indication:Non-smoker Start:01-Nov-2020 Instruction Type:Provider Instructions for Treatment How to Access Health Informa tion Online using Patient Portal and [employer]rd [employer] Apps Indication:Non-smoker Start:01-Nov-2020 Instruction Type:Patient Education Patient Instructions Indication:Non-smoker Start:09-Aug-2020 Instruction Type:Provider Instructions for Treatment How to Access Health Informa tion Online using Patient Portal and [employer]rd [employer] Apps Indication:Non-smoker Start:09-Aug-2020 Instruction Type:Patient Education How to Access Health Informa tion Online using Patient Portal and [employer]rd [employer] Apps Indication:Non-smoker Start:06-Aug-2020 Instruction Type:Patient Education Patient Instructions Indication:Non-smoker Start:06-Aug-2020 Instruction Type:Provider Instructions for Treatment How to Access Health Informa tion Online using Patient Portal and [employer]rd [employer] Apps Indication:Non-smoker Start:09-Jul-2020 Instruction Type:Patient Education Patient Instructions Indication:Non-smoker Start:09-Jul-2020 Instruction Type:Provider Instructions for Treatment How to access health informa tion online Indication:Non-smoker Start:08-Jul-2019 Instruction Type:Patient Education How to access health informa tion online - Detail Indication:Non-smoker Start:08-Jul-2019 Instruction Type:Patient Education Patient Instructions Indication:Non-smoker Start:08-Jul-2019 Instruction Type:Provider Instructions for Treatment How to access health informa tion online Indication:Non-smoker Start:28-Apr-2019 Instruction Type:Patient Education How to access health informa tion online - Detail Indication:Non-smoker Start:28-Apr-2019 Instruction Type:Patient Education Patient Instructions Indication:Non-smoker Start:28-Apr-2019 Instruction Type:Provider Instructions for Treatment How to access health informa tion online Indication:Abnormal glucose tolerance test Start:10-Mar-2019 Instruction Type:Patient Education How to access health informa tion online - Detail Indication:Abnormal glucose tolerance test Start:10-Mar-2019 Instruction Type:Patient Education Patient Instructions Indication:Abnormal glucose tolerance test Start:10-Mar-2019 Instruction Type:Provider Instructions for Treatment How to access health informa tion online Indication:Abnormal glucose tolerance test Start:25-Oct-2018 Instruction Type:Patient Education How to access health informa tion online - Detail Indication:Abnormal glucose tolerance test Start:25-Oct-2018 Instruction Type:Patient Education Patient Instructions Indication:Abnormal glucose tolerance test Start:25-Oct-2018 Instruction Type:Provider Instructions for Treatment How to access health informa tion online - Detail Indication:Bronchitis Start:27-Sep-2018 Instruction Type:Patient Education Patient Instructions Indication:BMI 36.0-36.9,adult Start:27-Sep-2018 Instruction Type:Provider Instructions for Treatment How to access health informa tion online Indication:Non-smoker Start:21-Jun-2018 Instruction Type:Patient Education How to access health informa tion online - Detail Indication:Non-smoker Start:21-Jun-2018 Instruction Type:Patient Education Patient Instructions Indication:Non-smoker Start:21-Jun-2018 Instruction Type:Provider Instructions for Treatment How to access health informa tion online Indication:Non-smoker Start:10-May-2018 Instruction Type:Patient Education How to access health informa tion online - Detail Indication:Non-smoker Start:10-May-2018 Instruction Type:Patient Education Patient Instructions Indication:BMI 35.0-35.9,adult Start:10-May-2018 Instruction Type:Provider Instructions for Treatment How to access health informa tion online Indication:Non-smoker Start:14-Dec-2017 Instruction Type:Patient Education How to access health informa tion online - Detail Indication:Non-smoker Start:14-Dec-2017 Instruction Type:Patient Education Patient Instructions Indication:Non-smoker Start:14-Dec-2017 Instruction Type:Provider Instructions for Treatment How to access health informa tion online Indication:Cough Start:23-Jun-2017 Instruction Type:Patient Education How to access health informa tion online - Detail Indication:Cough Start:23-Jun-2017 Instruction Type:Patient Education Patient Instructions Indication:Cough Start:23-Jun-2017 Instruction Type:Provider Instructions for Treatment How to access health informa tion online Indication:Hyperlipidemia, mild Start:08-Jun-2017 Instruction Type:Patient Education How to access health informa tion online - Detail Indication:Hyperlipidemia, mild Start:08-Jun-2017 Instruction Type:Patient Education Patient Instructions Indication:Hyperlipidemia, mild Start:08-Jun-2017 Instruction Type:Provider Instructions for Treatment How to access health informa tion online Indication:Non-smoker Start:28-Apr-2017 Instruction Type:Patient Education How to access health informa tion online - Detail Indication:Non-smoker Start:28-Apr-2017 Instruction Type:Patient Education Patient Instructions Indication:Non-smoker Start:28-Apr-2017 Instruction Type:Provider Instructions for Treatment How to access health informa tion online Indication:BMI 34.0-34.9,adult Start:16-Apr-2017 Instruction Type:Patient Education How to access health informa tion online - Detail Indication:BMI 34.0-34.9,adult Start:16-Apr-2017 Instruction Type:Patient Education Patient Instructions Indication:BMI 34.0-34.9,adult Start:16-Apr-2017 Instruction Type:Provider Instructions for Treatment How to access health informa tion online Indication:Non-smoker Start:15-Jan-2017 Instruction Type:Patient Education How to access health informa tion online - Detail Indication:Non-smoker Start:15-Jan-2017 Instruction Type:Patient Education Patient Instructions Indication:Non-smoker Start:15-Jan-2017 Instruction Type:Provider Instructions for Treatment How to access health informa tion online Indication:BMI 35.0-35.9,adult Start:15-Dec-2016 Instruction Type:Patient Education How to access health informa tion online - Detail Indication:BMI 35.0-35.9,adult Start:15-Dec-2016 Instruction Type:Patient Education Patient Instructions Indication:BMI 35.0-35.9,adult Start:15-Dec-2016 Instruction Type:Provider Instructions for Treatment How to access health informa tion online Indication:Chronic asthma, unspecified asthma severity, uncomplicated Start:12-Sep-2016 Instruction Type:Patient Education How to access health informa tion online - Detail Indication:Chronic asthma, unspecified asthma severity, uncomplicated Start:12-Sep-2016 Instruction Type:Patient Education Patient Instructions Indication:Chronic asthma, unspecified asthma severity, uncomplicated Start:12-Sep-2016 Instruction Type:Provider Instructions for Treatment How to access health informa tion online Indication:Acute asthma flare Start:08-Sep-2016 Instruction Type:Patient Education How to access health informa tion online - Detail Indication:Acute asthma flare Start:08-Sep-2016 Instruction Type:Patient Education Patient Instructions Indication:Acute asthma flare Start:08-Sep-2016 Instruction Type:Provider Instructions for Treatment How to access health informa tion online Indication:Acute asthma flare Start:01-Sep-2016 Instruction Type:Patient Education How to access health informa tion online - Detail Indication:Acute asthma flare Start:01-Sep-2016 Instruction Type:Patient Education Patient Instructions Indication:Acute asthma flare Start:01-Sep-2016 Instruction Type:Provider Instructions for Treatment How to access health informa tion online Indication:Non-smoker Start:25-Aug-2016 Instruction Type:Patient Education How to access health informa tion online - Detail Indication:Non-smoker Start:25-Aug-2016 Instruction Type:Patient Education Patient Instructions Indication:Non-smoker Start:25-Aug-2016 Instruction Type:Provider Instructions for Treatment How to access health informa tion online Indication:BMI 34.0-34.9,adult Start:21-Jul-2016 Instruction Type:Patient Education How to access health informa tion online - Detail Indication:BMI 34.0-34.9,adult Start:21-Jul-2016 Instruction Type:Patient Education Patient Instructions Indication:BMI 34.0-34.9,adult Start:21-Jul-2016 Instruction Type:Provider Instructions for Treatment How to access health informa tion online Indication:Non-smoker Start:15-Apr-2016 Instruction Type:Patient Education How to access health informa tion online - Detail Indication:Non-smoker Start:15-Apr-2016 Instruction Type:Patient Education Patient Instructions Indication:Non-smoker Start:15-Apr-2016 Instruction Type:Provider Instructions for Treatment How to access health informa tion online Indication:Non-smoker Start:13-Mar-2016 Instruction Type:Patient Education How to access health informa tion online - Detail Indication:Non-smoker Start:13-Mar-2016 Instruction Type:Patient Education Patient Instructions Indication:Non-smoker Start:13-Mar-2016 Instruction Type:Provider Instructions for Treatment How to access health informa tion online Indication:Hypertension Start:07-Feb-2016 Instruction Type:Patient Education How to access health informa tion online - Detail Indication:Hypertension Start:07-Feb-2016 Instruction Type:Patient Education Patient Instructions Indication:Hypertension Start:07-Feb-2016 Instruction Type:Provider Instructions for Treatment How to access health informa tion online Indication:Sore throat Start:23-Jan-2016 Instruction Type:Patient Education How to access health informa tion online - Detail Indication:Sore throat Start:23-Jan-2016 Instruction Type:Patient Education Patient Instructions Indication:Sore throat Start:23-Jan-2016 Instruction Type:Provider Instructions for Treatment How to access health informa tion online Indication:Non-smoker Start:08-Jan-2016 Instruction Type:Patient Education How to access health informa tion online - Detail Indication:Non-smoker Start:08-Jan-2016 Instruction Type:Patient Education Patient Instructions Indication:Non-smoker Start:08-Jan-2016 Instruction Type:Provider Instructions for Treatment [facility]; [facility] Work Phone: Instructions* Name Dates Details Patient Instructions Indication:BMI 33.0-33.9,adult Start:10-Sep-2022 Instruction Type:Provider Instructions for Treatment How to Access Health Informa tion Online using Patient Portal and [employer]rd [employer] Apps Indication:BMI 33.0-33.9,adult Start:10-Sep-2022 Instruction Type:Patient Education Patient Instructions Indication:Non-smoker Start:20-Aug-2022 Instruction Type:Provider Instructions for Treatment How to Access Health Informa tion Online using Patient Portal and [employer]rd [employer] Apps Indication:Non-smoker Start:20-Aug-2022 Instruction Type:Patient Education Patient Instructions Indication:Non-smoker Start:28-Apr-2022 Instruction Type:Provider Instructions for Treatment How to Access Health Informa tion Online using Patient Portal and [employer]rd [employer] Apps Indication:Non-smoker Start:28-Apr-2022 Instruction Type:Patient Education Patient Instructions Indication:BMI 37.0-37.9, adult Start:06-May-2021 Instruction Type:Provider Instructions for Treatment How to Access Health Informa tion Online using Patient Portal and [employer]rd [employer] Apps Indication:BMI 37.0-37.9, adult Start:06-May-2021 Instruction Type:Patient Education Patient Instructions Indication:BMI 34.0-34.9,adult Start:28-Dec-2020 Instruction Type:Provider Instructions for Treatment How to Access Health Informa tion Online using Patient Portal and [employer]rd [employer] Apps Indication:BMI 34.0-34.9,adult Start:28-Dec-2020 Instruction Type:Patient Education Patient Instructions Indication:Non-smoker Start:01-Nov-2020 Instruction Type:Provider Instructions for Treatment How to Access Health Informa tion Online using Patient Portal and [employer]rd [employer] Apps Indication:Non-smoker Start:01-Nov-2020 Instruction Type:Patient Education Patient Instructions Indication:Non-smoker Start:09-Aug-2020 Instruction Type:Provider Instructions for Treatment How to Access Health Informa tion Online using Patient Portal and [employer]rd [employer] Apps Indication:Non-smoker Start:09-Aug-2020 Instruction Type:Patient Education How to Access Health Informa tion Online using Patient Portal and [employer]rd [employer] Apps Indication:Non-smoker Start:06-Aug-2020 Instruction Type:Patient Education Patient Instructions Indication:Non-smoker Start:06-Aug-2020 Instruction Type:Provider Instructions for Treatment How to Access Health Informa tion Online using Patient Portal and [employer]rd [employer] Apps Indication:Non-smoker Start:09-Jul-2020 Instruction Type:Patient Education Patient Instructions Indication:Non-smoker Start:09-Jul-2020 Instruction Type:Provider Instructions for Treatment How to access health informa tion online Indication:Non-smoker Start:08-Jul-2019 Instruction Type:Patient Education How to access health informa tion online - Detail Indication:Non-smoker Start:08-Jul-2019 Instruction Type:Patient Education Patient Instructions Indication:Non-smoker Start:08-Jul-2019 Instruction Type:Provider Instructions for Treatment How to access health informa tion online Indication:Non-smoker Start:28-Apr-2019 Instruction Type:Patient Education How to access health informa tion online - Detail Indication:Non-smoker Start:28-Apr-2019 Instruction Type:Patient Education Patient Instructions Indication:Non-smoker Start:28-Apr-2019 Instruction Type:Provider Instructions for Treatment How to access health informa tion online Indication:Abnormal glucose tolerance test Start:10-Mar-2019 Instruction Type:Patient Education How to access health informa tion online - Detail Indication:Abnormal glucose tolerance test Start:10-Mar-2019 Instruction Type:Patient Education Patient Instructions Indication:Abnormal glucose tolerance test Start:10-Mar-2019 Instruction Type:Provider Instructions for Treatment How to access health informa tion online Indication:Abnormal glucose tolerance test Start:25-Oct-2018 Instruction Type:Patient Education How to access health informa tion online - Detail Indication:Abnormal glucose tolerance test Start:25-Oct-2018 Instruction Type:Patient Education Patient Instructions Indication:Abnormal glucose tolerance test Start:25-Oct-2018 Instruction Type:Provider Instructions for Treatment How to access health informa tion online - Detail Indication:Bronchitis Start:27-Sep-2018 Instruction Type:Patient Education Patient Instructions Indication:BMI 36.0-36.9,adult Start:27-Sep-2018 Instruction Type:Provider Instructions for Treatment How to access health informa tion online Indication:Non-smoker Start:21-Jun-2018 Instruction Type:Patient Education How to access health informa tion online - Detail Indication:Non-smoker Start:21-Jun-2018 Instruction Type:Patient Education Patient Instructions Indication:Non-smoker Start:21-Jun-2018 Instruction Type:Provider Instructions for Treatment How to access health informa tion online Indication:Non-smoker Start:10-May-2018 Instruction Type:Patient Education How to access health informa tion online - Detail Indication:Non-smoker Start:10-May-2018 Instruction Type:Patient Education Patient Instructions Indication:BMI 35.0-35.9,adult Start:10-May-2018 Instruction Type:Provider Instructions for Treatment How to access health informa tion online Indication:Non-smoker Start:14-Dec-2017 Instruction Type:Patient Education How to access health informa tion online - Detail Indication:Non-smoker Start:14-Dec-2017 Instruction Type:Patient Education Patient Instructions Indication:Non-smoker Start:14-Dec-2017 Instruction Type:Provider Instructions for Treatment How to access health informa tion online Indication:Cough Start:23-Jun-2017 Instruction Type:Patient Education How to access health informa tion online - Detail Indication:Cough Start:23-Jun-2017 Instruction Type:Patient Education Patient Instructions Indication:Cough Start:23-Jun-2017 Instruction Type:Provider Instructions for Treatment How to access health informa tion online Indication:Hyperlipidemia, mild Start:08-Jun-2017 Instruction Type:Patient Education How to access health informa tion online - Detail Indication:Hyperlipidemia, mild Start:08-Jun-2017 Instruction Type:Patient Education Patient Instructions Indication:Hyperlipidemia, mild Start:08-Jun-2017 Instruction Type:Provider Instructions for Treatment How to access health informa tion online Indication:Non-smoker Start:28-Apr-2017 Instruction Type:Patient Education How to access health informa tion online - Detail Indication:Non-smoker Start:28-Apr-2017 Instruction Type:Patient Education Patient Instructions Indication:Non-smoker Start:28-Apr-2017 Instruction Type:Provider Instructions for Treatment How to access health informa tion online Indication:BMI 34.0-34.9,adult Start:16-Apr-2017 Instruction Type:Patient Education How to access health informa tion online - Detail Indication:BMI 34.0-34.9,adult Start:16-Apr-2017 Instruction Type:Patient Education Patient Instructions Indication:BMI 34.0-34.9,adult Start:16-Apr-2017 Instruction Type:Provider Instructions for Treatment How to access health informa tion online Indication:Non-smoker Start:15-Jan-2017 Instruction Type:Patient Education How to access health informa tion online - Detail Indication:Non-smoker Start:15-Jan-2017 Instruction Type:Patient Education Patient Instructions Indication:Non-smoker Start:15-Jan-2017 Instruction Type:Provider Instructions for Treatment How to access health informa tion online Indication:BMI 35.0-35.9,adult Start:15-Dec-2016 Instruction Type:Patient Education How to access health informa tion online - Detail Indication:BMI 35.0-35.9,adult Start:15-Dec-2016 Instruction Type:Patient Education Patient Instructions Indication:BMI 35.0-35.9,adult Start:15-Dec-2016 Instruction Type:Provider Instructions for Treatment How to access health informa tion online Indication:Chronic asthma, unspecified asthma severity, uncomplicated Start:12-Sep-2016 Instruction Type:Patient Education How to access health informa tion online - Detail Indication:Chronic asthma, unspecified asthma severity, uncomplicated Start:12-Sep-2016 Instruction Type:Patient Education Patient Instructions Indication:Chronic asthma, unspecified asthma severity, uncomplicated Start:12-Sep-2016 Instruction Type:Provider Instructions for Treatment How to access health informa tion online Indication:Acute asthma flare Start:08-Sep-2016 Instruction Type:Patient Education How to access health informa tion online - Detail Indication:Acute asthma flare Start:08-Sep-2016 Instruction Type:Patient Education Patient Instructions Indication:Acute asthma flare Start:08-Sep-2016 Instruction Type:Provider Instructions for Treatment How to access health informa tion online Indication:Acute asthma flare Start:01-Sep-2016 Instruction Type:Patient Education How to access health informa tion online - Detail Indication:Acute asthma flare Start:01-Sep-2016 Instruction Type:Patient Education Patient Instructions Indication:Acute asthma flare Start:01-Sep-2016 Instruction Type:Provider Instructions for Treatment How to access health informa tion online Indication:Non-smoker Start:25-Aug-2016 Instruction Type:Patient Education How to access health informa tion online - Detail Indication:Non-smoker Start:25-Aug-2016 Instruction Type:Patient Education Patient Instructions Indication:Non-smoker Start:25-Aug-2016 Instruction Type:Provider Instructions for Treatment How to access health informa tion online Indication:BMI 34.0-34.9,adult Start:21-Jul-2016 Instruction Type:Patient Education How to access health informa tion online - Detail Indication:BMI 34.0-34.9,adult Start:21-Jul-2016 Instruction Type:Patient Education Patient Instructions Indication:BMI 34.0-34.9,adult Start:21-Jul-2016 Instruction Type:Provider Instructions for Treatment How to access health informa tion online Indication:Non-smoker Start:15-Apr-2016 Instruction Type:Patient Education How to access health informa tion online - Detail Indication:Non-smoker Start:15-Apr-2016 Instruction Type:Patient Education Patient Instructions Indication:Non-smoker Start:15-Apr-2016 Instruction Type:Provider Instructions for Treatment How to access health informa tion online Indication:Non-smoker Start:13-Mar-2016 Instruction Type:Patient Education How to access health informa tion online - Detail Indication:Non-smoker Start:13-Mar-2016 Instruction Type:Patient Education Patient Instructions Indication:Non-smoker Start:13-Mar-2016 Instruction Type:Provider Instructions for Treatment How to access health informa tion online Indication:Hypertension Start:07-Feb-2016 Instruction Type:Patient Education How to access health informa tion online - Detail Indication:Hypertension Start:07-Feb-2016 Instruction Type:Patient Education Patient Instructions Indication:Hypertension Start:07-Feb-2016 Instruction Type:Provider Instructions for Treatment How to access health informa tion online Indication:Sore throat Start:23-Jan-2016 Instruction Type:Patient Education How to access health informa tion online - Detail Indication:Sore throat Start:23-Jan-2016 Instruction Type:Patient Education Patient Instructions Indication:Sore throat Start:23-Jan-2016 Instruction Type:Provider Instructions for Treatment How to access health informa tion online Indication:Non-smoker Start:08-Jan-2016 Instruction Type:Patient Education How to access health informa tion online - Detail Indication:Non-smoker Start:08-Jan-2016 Instruction Type:Patient Education Patient Instructions Indication:Non-smoker Start:08-Jan-2016 Instruction Type:Provider Instructions for Treatment [facility]; [facility] Work Phone: Instructions* Name Dates Details Patient Instructions Indication:BMI 33.0-33.9,adult Start:10-Sep-2022 Instruction Type:Provider Instructions for Treatment How to Access Health Informa tion Online using Patient Portal and [employer] Apps Indication:BMI 33.0-33.9,adult Start:10-Sep-2022 Instruction Type:Patient Education Patient Instructions Indication:Non-smoker Start:20-Aug-2022 Instruction Type:Provider Instructions for Treatment How to Access Health Informa tion Online using Patient Portal and [employer] Apps Indication:Non-smoker Start:20-Aug-2022 Instruction Type:Patient Education Patient Instructions Indication:Non-smoker Start:28-Apr-2022 Instruction Type:Provider Instructions for Treatment How to Access Health Informa tion Online using Patient Portal and [employer] Apps Indication:Non-smoker Start:28-Apr-2022 Instruction Type:Patient Education Patient Instructions Indication:BMI 37.0-37.9, adult Start:06-May-2021 Instruction Type:Provider Instructions for Treatment How to Access Health Informa tion Online using Patient Portal and [employer] Apps Indication:BMI 37.0-37.9, adult Start:06-May-2021 Instruction Type:Patient Education Patient Instructions Indication:BMI 34.0-34.9,adult Start:28-Dec-2020 Instruction Type:Provider Instructions for Treatment How to Access Health Informa tion Online using Patient Portal and [employer] Apps Indication:BMI 34.0-34.9,adult Start:28-Dec-2020 Instruction Type:Patient Education Patient Instructions Indication:Non-smoker Start:01-Nov-2020 Instruction Type:Provider Instructions for Treatment How to Access Health Informa tion Online using Patient Portal and [employer] Apps Indication:Non-smoker Start:01-Nov-2020 Instruction Type:Patient Education Patient Instructions Indication:Non-smoker Start:09-Aug-2020 Instruction Type:Provider Instructions for Treatment How to Access Health Informa tion Online using Patient Portal and [employer] Apps Indication:Non-smoker Start:09-Aug-2020 Instruction Type:Patient Education How to Access Health Informa tion Online using Patient Portal and [employer] Apps Indication:Non-smoker Start:06-Aug-2020 Instruction Type:Patient Education Patient Instructions Indication:Non-smoker Start:06-Aug-2020 Instruction Type:Provider Instructions for Treatment How to Access Health Informa tion Online using Patient Portal and [employer] Apps Indication:Non-smoker Start:09-Jul-2020 Instruction Type:Patient Education Patient Instructions Indication:Non-smoker Start:09-Jul-2020 Instruction Type:Provider Instructions for Treatment How to access health informa tion online Indication:Non-smoker Start:08-Jul-2019 Instruction Type:Patient Education How to access health informa tion online - Detail Indication:Non-smoker Start:08-Jul-2019 Instruction Type:Patient Education Patient Instructions Indication:Non-smoker Start:08-Jul-2019 Instruction Type:Provider Instructions for Treatment How to access health informa tion online Indication:Non-smoker Start:28-Apr-2019 Instruction Type:Patient Education How to access health informa tion online - Detail Indication:Non-smoker Start:28-Apr-2019 Instruction Type:Patient Education Patient Instructions Indication:Non-smoker Start:28-Apr-2019 Instruction Type:Provider Instructions for Treatment How to access health informa tion online Indication:Abnormal glucose tolerance test Start:10-Mar-2019 Instruction Type:Patient Education How to access health informa tion online - Detail Indication:Abnormal glucose tolerance test Start:10-Mar-2019 Instruction Type:Patient Education Patient Instructions Indication:Abnormal glucose tolerance test Start:10-Mar-2019 Instruction Type:Provider Instructions for Treatment How to access health informa tion online Indication:Abnormal glucose tolerance test Start:25-Oct-2018 Instruction Type:Patient Education How to access health informa tion online - Detail Indication:Abnormal glucose tolerance test Start:25-Oct-2018 Instruction Type:Patient Education Patient Instructions Indication:Abnormal glucose tolerance test Start:25-Oct-2018 Instruction Type:Provider Instructions for Treatment How to access health informa tion online - Detail Indication:Bronchitis Start:27-Sep-2018 Instruction Type:Patient Education Patient Instructions Indication:BMI 36.0-36.9,adult Start:27-Sep-2018 Instruction Type:Provider Instructions for Treatment How to access health informa tion online Indication:Non-smoker Start:21-Jun-2018 Instruction Type:Patient Education How to access health informa tion online - Detail Indication:Non-smoker Start:21-Jun-2018 Instruction Type:Patient Education Patient Instructions Indication:Non-smoker Start:21-Jun-2018 Instruction Type:Provider Instructions for Treatment How to access health informa tion online Indication:Non-smoker Start:10-May-2018 Instruction Type:Patient Education How to access health informa tion online - Detail Indication:Non-smoker Start:10-May-2018 Instruction Type:Patient Education Patient Instructions Indication:BMI 35.0-35.9,adult Start:10-May-2018 Instruction Type:Provider Instructions for Treatment How to access health informa tion online Indication:Non-smoker Start:14-Dec-2017 Instruction Type:Patient Education How to access health informa tion online - Detail Indication:Non-smoker Start:14-Dec-2017 Instruction Type:Patient Education Patient Instructions Indication:Non-smoker Start:14-Dec-2017 Instruction Type:Provider Instructions for Treatment How to access health informa tion online Indication:Cough Start:23-Jun-2017 Instruction Type:Patient Education How to access health informa tion online - Detail Indication:Cough Start:23-Jun-2017 Instruction Type:Patient Education Patient Instructions Indication:Cough Start:23-Jun-2017 Instruction Type:Provider Instructions for Treatment How to access health informa tion online Indication:Hyperlipidemia, mild Start:08-Jun-2017 Instruction Type:Patient Education How to access health informa tion online - Detail Indication:Hyperlipidemia, mild Start:08-Jun-2017 Instruction Type:Patient Education Patient Instructions Indication:Hyperlipidemia, mild Start:08-Jun-2017 Instruction Type:Provider Instructions for Treatment How to access health informa tion online Indication:Non-smoker Start:28-Apr-2017 Instruction Type:Patient Education How to access health informa tion online - Detail Indication:Non-smoker Start:28-Apr-2017 Instruction Type:Patient Education Patient Instructions Indication:Non-smoker Start:28-Apr-2017 Instruction Type:Provider Instructions for Treatment How to access health informa tion online Indication:BMI 34.0-34.9,adult Start:16-Apr-2017 Instruction Type:Patient Education How to access health informa tion online - Detail Indication:BMI 34.0-34.9,adult Start:16-Apr-2017 Instruction Type:Patient Education Patient Instructions Indication:BMI 34.0-34.9,adult Start:16-Apr-2017 Instruction Type:Provider Instructions for Treatment How to access health informa tion online Indication:Non-smoker Start:15-Jan-2017 Instruction Type:Patient Education How to access health informa tion online - Detail Indication:Non-smoker Start:15-Jan-2017 Instruction Type:Patient Education Patient Instructions Indication:Non-smoker Start:15-Jan-2017 Instruction Type:Provider Instructions for Treatment How to access health informa tion online Indication:BMI 35.0-35.9,adult Start:15-Dec-2016 Instruction Type:Patient Education How to access health informa tion online - Detail Indication:BMI 35.0-35.9,adult Start:15-Dec-2016 Instruction Type:Patient Education Patient Instructions Indication:BMI 35.0-35.9,adult Start:15-Dec-2016 Instruction Type:Provider Instructions for Treatment How to access health informa tion online Indication:Chronic asthma, unspecified asthma severity, uncomplicated Start:12-Sep-2016 Instruction Type:Patient Education How to access health informa tion online - Detail Indication:Chronic asthma, unspecified asthma severity, uncomplicated Start:12-Sep-2016 Instruction Type:Patient Education Patient Instructions Indication:Chronic asthma, unspecified asthma severity, uncomplicated Start:12-Sep-2016 Instruction Type:Provider Instructions for Treatment How to access health informa tion online Indication:Acute asthma flare Start:08-Sep-2016 Instruction Type:Patient Education How to access health informa tion online - Detail Indication:Acute asthma flare Start:08-Sep-2016 Instruction Type:Patient Education Patient Instructions Indication:Acute asthma flare Start:08-Sep-2016 Instruction Type:Provider Instructions for Treatment How to access health informa tion online Indication:Acute asthma flare Start:01-Sep-2016 Instruction Type:Patient Education How to access health informa tion online - Detail Indication:Acute asthma flare Start:01-Sep-2016 Instruction Type:Patient Education Patient Instructions Indication:Acute asthma flare Start:01-Sep-2016 Instruction Type:Provider Instructions for Treatment How to access health informa tion online Indication:Non-smoker Start:25-Aug-2016 Instruction Type:Patient Education How to access health informa tion online - Detail Indication:Non-smoker Start:25-Aug-2016 Instruction Type:Patient Education Patient Instructions Indication:Non-smoker Start:25-Aug-2016 Instruction Type:Provider Instructions for Treatment How to access health informa tion online Indication:BMI 34.0-34.9,adult Start:21-Jul-2016 Instruction Type:Patient Education How to access health informa tion online - Detail Indication:BMI 34.0-34.9,adult Start:21-Jul-2016 Instruction Type:Patient Education Patient Instructions Indication:BMI 34.0-34.9,adult Start:21-Jul-2016 Instruction Type:Provider Instructions for Treatment How to access health informa tion online Indication:Non-smoker Start:15-Apr-2016 Instruction Type:Patient Education How to access health informa tion online - Detail Indication:Non-smoker Start:15-Apr-2016 Instruction Type:Patient Education Patient Instructions Indication:Non-smoker Start:15-Apr-2016 Instruction Type:Provider Instructions for Treatment How to access health informa tion online Indication:Non-smoker Start:13-Mar-2016 Instruction Type:Patient Education How to access health informa tion online - Detail Indication:Non-smoker Start:13-Mar-2016 Instruction Type:Patient Education Patient Instructions Indication:Non-smoker Start:13-Mar-2016 Instruction Type:Provider Instructions for Treatment How to access health informa tion online Indication:Hypertension Start:07-Feb-2016 Instruction Type:Patient Education How to access health informa tion online - Detail Indication:Hypertension Start:07-Feb-2016 Instruction Type:Patient Education Patient Instructions Indication:Hypertension Start:07-Feb-2016 Instruction Type:Provider Instructions for Treatment How to access health informa tion online Indication:Sore throat Start:23-Jan-2016 Instruction Type:Patient Education How to access health informa tion online - Detail Indication:Sore throat Start:23-Jan-2016 Instruction Type:Patient Education Patient Instructions Indication:Sore throat Start:23-Jan-2016 Instruction Type:Provider Instructions for Treatment How to access health informa tion online Indication:Non-smoker Start:08-Jan-2016 Instruction Type:Patient Education How to access health informa tion online - Detail Indication:Non-smoker Start:08-Jan-2016 Instruction Type:Patient Education Patient Instructions Indication:Non-smoker Start:08-Jan-2016 Instruction Type:Provider Instructions for Treatment [facility]; [facility] Work Phone: Instructions* Name Dates Details Patient Instructions Indication:Low back pain, episodic Start:06-Nov-2022 Instruction Type:Provider Instructions for Treatment How to Access Health Informa tion Online using Patient Portal and [employer] Apps Indication:Low back pain, episodic Start:06-Nov-2022 Instruction Type:Patient Education Patient Instructions Indication:BMI 33.0-33.9,adult Start:10-Sep-2022 Instruction Type:Provider Instructions for Treatment How to Access Health Informa tion Online using Patient Portal and [employer] Indication:BMI 33.0-33.9,adult Start:10-Sep-2022 Instruction Type:Patient Education Patient Instructions Indication:Non-smoker Start:20-Aug-2022 Instruction Type:Provider Instructions for Treatment How to Access Health Informa tion Online using Patient Portal and [employer] Apps Indication:Non-smoker Start:20-Aug-2022 Instruction Type:Patient Education Patient Instructions Indication:Non-smoker Start:28-Apr-2022 Instruction Type:Provider Instructions for Treatment How to Access Health Informa tion Online using Patient Portal and [employer] Apps Indication:Non-smoker Start:28-Apr-2022 Instruction Type:Patient Education Patient Instructions Indication:BMI 37.0-37.9, adult Start:06-May-2021 Instruction Type:Provider Instructions for Treatment How to Access Health Informa tion Online using Patient Portal and [employer] Apps Indication:BMI 37.0-37.9, adult Start:06-May-2021 Instruction Type:Patient Education Patient Instructions Indication:BMI 34.0-34.9,adult Start:28-Dec-2020 Instruction Type:Provider Instructions for Treatment How to Access Health Informa tion Online using Patient Portal and [employer] Indication:BMI 34.0-34.9,adult Start:28-Dec-2020 Instruction Type:Patient Education Patient Instructions Indication:Non-smoker Start:01-Nov-2020 Instruction Type:Provider Instructions for Treatment How to Access Health Informa tion Online using Patient Portal and [employer] Apps Indication:Non-smoker Start:01-Nov-2020 Instruction Type:Patient Education Patient Instructions Indication:Non-smoker Start:09-Aug-2020 Instruction Type:Provider Instructions for Treatment How to Access Health Informa tion Online using Patient Portal and [employer] Apps Indication:Non-smoker Start:09-Aug-2020 Instruction Type:Patient Education How to Access Health Informa tion Online using Patient Portal and [employer] Apps Indication:Non-smoker Start:06-Aug-2020 Instruction Type:Patient Education Patient Instructions Indication:Non-smoker Start:06-Aug-2020 Instruction Type:Provider Instructions for Treatment How to Access Health Informa tion Online using Patient Portal and [employer] Apps Indication:Non-smoker Start:09-Jul-2020 Instruction Type:Patient Education Patient Instructions Indication:Non-smoker Start:09-Jul-2020 Instruction Type:Provider Instructions for Treatment How to access health informa tion online Indication:Non-smoker Start:08-Jul-2019 Instruction Type:Patient Education How to access health informa tion online - Detail Indication:Non-smoker Start:08-Jul-2019 Instruction Type:Patient Education Patient Instructions Indication:Non-smoker Start:08-Jul-2019 Instruction Type:Provider Instructions for Treatment How to access health informa tion online Indication:Non-smoker Start:28-Apr-2019 Instruction Type:Patient Education How to access health informa tion online - Detail Indication:Non-smoker Start:28-Apr-2019 Instruction Type:Patient Education Patient Instructions Indication:Non-smoker Start:28-Apr-2019 Instruction Type:Provider Instructions for Treatment How to access health informa tion online Indication:Abnormal glucose tolerance test Start:10-Mar-2019 Instruction Type:Patient Education How to access health informa tion online - Detail Indication:Abnormal glucose tolerance test Start:10-Mar-2019 Instruction Type:Patient Education Patient Instructions Indication:Abnormal glucose tolerance test Start:10-Mar-2019 Instruction Type:Provider Instructions for Treatment How to access health informa tion online Indication:Abnormal glucose tolerance test Start:25-Oct-2018 Instruction Type:Patient Education How to access health informa tion online - Detail Indication:Abnormal glucose tolerance test Start:25-Oct-2018 Instruction Type:Patient Education Patient Instructions Indication:Abnormal glucose tolerance test Start:25-Oct-2018 Instruction Type:Provider Instructions for Treatment How to access health informa tion online - Detail Indication:Bronchitis Start:27-Sep-2018 Instruction Type:Patient Education Patient Instructions Indication:BMI 36.0-36.9,adult Start:27-Sep-2018 Instruction Type:Provider Instructions for Treatment How to access health informa tion online Indication:Non-smoker Start:21-Jun-2018 Instruction Type:Patient Education How to access health informa tion online - Detail Indication:Non-smoker Start:21-Jun-2018 Instruction Type:Patient Education Patient Instructions Indication:Non-smoker Start:21-Jun-2018 Instruction Type:Provider Instructions for Treatment How to access health informa tion online Indication:Non-smoker Start:10-May-2018 Instruction Type:Patient Education How to access health informa tion online - Detail Indication:Non-smoker Start:10-May-2018 Instruction Type:Patient Education Patient Instructions Indication:BMI 35.0-35.9,adult Start:10-May-2018 Instruction Type:Provider Instructions for Treatment How to access health informa tion online Indication:Non-smoker Start:14-Dec-2017 Instruction Type:Patient Education How to access health informa tion online - Detail Indication:Non-smoker Start:14-Dec-2017 Instruction Type:Patient Education Patient Instructions Indication:Non-smoker Start:14-Dec-2017 Instruction Type:Provider Instructions for Treatment How to access health informa tion online Indication:Cough Start:23-Jun-2017 Instruction Type:Patient Education How to access health informa tion online - Detail Indication:Cough Start:23-Jun-2017 Instruction Type:Patient Education Patient Instructions Indication:Cough Start:23-Jun-2017 Instruction Type:Provider Instructions for Treatment How to access health informa tion online Indication:Hyperlipidemia, mild Start:08-Jun-2017 Instruction Type:Patient Education How to access health informa tion online - Detail Indication:Hyperlipidemia, mild Start:08-Jun-2017 Instruction Type:Patient Education Patient Instructions Indication:Hyperlipidemia, mild Start:08-Jun-2017 Instruction Type:Provider Instructions for Treatment How to access health informa tion online Indication:Non-smoker Start:28-Apr-2017 Instruction Type:Patient Education How to access health informa tion online - Detail Indication:Non-smoker Start:28-Apr-2017 Instruction Type:Patient Education Patient Instructions Indication:Non-smoker Start:28-Apr-2017 Instruction Type:Provider Instructions for Treatment How to access health informa tion online Indication:BMI 34.0-34.9,adult Start:16-Apr-2017 Instruction Type:Patient Education How to access health informa tion online - Detail Indication:BMI 34.0-34.9,adult Start:16-Apr-2017 Instruction Type:Patient Education Patient Instructions Indication:BMI 34.0-34.9,adult Start:16-Apr-2017 Instruction Type:Provider Instructions for Treatment How to access health informa tion online Indication:Non-smoker Start:15-Jan-2017 Instruction Type:Patient Education How to access health informa tion online - Detail Indication:Non-smoker Start:15-Jan-2017 Instruction Type:Patient Education Patient Instructions Indication:Non-smoker Start:15-Jan-2017 Instruction Type:Provider Instructions for Treatment How to access health informa tion online Indication:BMI 35.0-35.9,adult Start:15-Dec-2016 Instruction Type:Patient Education How to access health informa tion online - Detail Indication:BMI 35.0-35.9,adult Start:15-Dec-2016 Instruction Type:Patient Education Patient Instructions Indication:BMI 35.0-35.9,adult Start:15-Dec-2016 Instruction Type:Provider Instructions for Treatment How to access health informa tion online Indication:Chronic asthma, unspecified asthma severity, uncomplicated Start:12-Sep-2016 Instruction Type:Patient Education How to access health informa tion online - Detail Indication:Chronic asthma, unspecified asthma severity, uncomplicated Start:12-Sep-2016 Instruction Type:Patient Education Patient Instructions Indication:Chronic asthma, unspecified asthma severity, uncomplicated Start:12-Sep-2016 Instruction Type:Provider Instructions for Treatment How to access health informa tion online Indication:Acute asthma flare Start:08-Sep-2016 Instruction Type:Patient Education How to access health informa tion online - Detail Indication:Acute asthma flare Start:08-Sep-2016 Instruction Type:Patient Education Patient Instructions Indication:Acute asthma flare Start:08-Sep-2016 Instruction Type:Provider Instructions for Treatment How to access health informa tion online Indication:Acute asthma flare Start:01-Sep-2016 Instruction Type:Patient Education How to access health informa tion online - Detail Indication:Acute asthma flare Start:01-Sep-2016 Instruction Type:Patient Education Patient Instructions Indication:Acute asthma flare Start:01-Sep-2016 Instruction Type:Provider Instructions for Treatment How to access health informa tion online Indication:Non-smoker Start:25-Aug-2016 Instruction Type:Patient Education How to access health informa tion online - Detail Indication:Non-smoker Start:25-Aug-2016 Instruction Type:Patient Education Patient Instructions Indication:Non-smoker Start:25-Aug-2016 Instruction Type:Provider Instructions for Treatment How to access health informa tion online Indication:BMI 34.0-34.9,adult Start:21-Jul-2016 Instruction Type:Patient Education How to access health informa tion online - Detail Indication:BMI 34.0-34.9,adult Start:21-Jul-2016 Instruction Type:Patient Education Patient Instructions Indication:BMI 34.0-34.9,adult Start:21-Jul-2016 Instruction Type:Provider Instructions for Treatment How to access health informa tion online Indication:Non-smoker Start:15-Apr-2016 Instruction Type:Patient Education How to access health informa tion online - Detail Indication:Non-smoker Start:15-Apr-2016 Instruction Type:Patient Education Patient Instructions Indication:Non-smoker Start:15-Apr-2016 Instruction Type:Provider Instructions for Treatment How to access health informa tion online Indication:Non-smoker Start:13-Mar-2016 Instruction Type:Patient Education How to access health informa tion online - Detail Indication:Non-smoker Start:13-Mar-2016 Instruction Type:Patient Education Patient Instructions Indication:Non-smoker Start:13-Mar-2016 Instruction Type:Provider Instructions for Treatment How to access health informa tion online Indication:Hypertension Start:07-Feb-2016 Instruction Type:Patient Education How to access health informa tion online - Detail Indication:Hypertension Start:07-Feb-2016 Instruction Type:Patient Education Patient Instructions Indication:Hypertension Start:07-Feb-2016 Instruction Type:Provider Instructions for Treatment How to access health informa tion online Indication:Sore throat Start:23-Jan-2016 Instruction Type:Patient Education How to access health informa tion online - Detail Indication:Sore throat Start:23-Jan-2016 Instruction Type:Patient Education Patient Instructions Indication:Sore throat Start:23-Jan-2016 Instruction Type:Provider Instructions for Treatment How to access health informa tion online Indication:Non-smoker Start:08-Jan-2016 Instruction Type:Patient Education How to access health informa tion online - Detail Indication:Non-smoker Start:08-Jan-2016 Instruction Type:Patient Education Patient Instructions Indication:Non-smoker Start:08-Jan-2016 Instruction Type:Provider Instructions for Treatment [facility]; [facility] Work Phone: Instructions* Name Dates Details Patient Instructions Indication:Low back pain, episodic Start:06-Nov-2022 Instruction Type:Provider Instructions for Treatment How to Access Health Informa tion Online using Patient Portal and 3rd [employer] Apps Indication:Low back pain, episodic Start:06-Nov-2022 Instruction Type:Patient Education Patient Instructions Indication:BMI 33.0-33.9,adult Start:10-Sep-2022 Instruction Type:Provider Instructions for Treatment How to Access Health Informa tion Online using Patient Portal and [employer]rd [employer] Apps Indication:BMI 33.0-33.9,adult Start:10-Sep-2022 Instruction Type:Patient Education Patient Instructions Indication:Non-smoker Start:20-Aug-2022 Instruction Type:Provider Instructions for Treatment How to Access Health Informa tion Online using Patient Portal and [employer]rd [employer] Apps Indication:Non-smoker Start:20-Aug-2022 Instruction Type:Patient Education Patient Instructions Indication:Non-smoker Start:28-Apr-2022 Instruction Type:Provider Instructions for Treatment How to Access Health Informa tion Online using Patient Portal and [employer]rd [employer] Apps Indication:Non-smoker Start:28-Apr-2022 Instruction Type:Patient Education Patient Instructions Indication:BMI 37.0-37.9, adult Start:06-May-2021 Instruction Type:Provider Instructions for Treatment How to Access Health Informa tion Online using Patient Portal and [employer]rd [employer] Apps Indication:BMI 37.0-37.9, adult Start:06-May-2021 Instruction Type:Patient Education Patient Instructions Indication:BMI 34.0-34.9,adult Start:28-Dec-2020 Instruction Type:Provider Instructions for Treatment How to Access Health Informa tion Online using Patient Portal and [employer]rd [employer] Apps Indication:BMI 34.0-34.9,adult Start:28-Dec-2020 Instruction Type:Patient Education Patient Instructions Indication:Non-smoker Start:01-Nov-2020 Instruction Type:Provider Instructions for Treatment How to Access Health Informa tion Online using Patient Portal and [employer]rd [employer] Apps Indication:Non-smoker Start:01-Nov-2020 Instruction Type:Patient Education Patient Instructions Indication:Non-smoker Start:09-Aug-2020 Instruction Type:Provider Instructions for Treatment How to Access Health Informa tion Online using Patient Portal and [employer]rd [employer] Apps Indication:Non-smoker Start:09-Aug-2020 Instruction Type:Patient Education How to Access Health Informa tion Online using Patient Portal and [employer]rd [employer] Apps Indication:Non-smoker Start:06-Aug-2020 Instruction Type:Patient Education Patient Instructions Indication:Non-smoker Start:06-Aug-2020 Instruction Type:Provider Instructions for Treatment How to Access Health Informa tion Online using Patient Portal and [employer]rd [employer] Apps Indication:Non-smoker Start:09-Jul-2020 Instruction Type:Patient Education Patient Instructions Indication:Non-smoker Start:09-Jul-2020 Instruction Type:Provider Instructions for Treatment How to access health informa tion online Indication:Non-smoker Start:08-Jul-2019 Instruction Type:Patient Education How to access health informa tion online - Detail Indication:Non-smoker Start:08-Jul-2019 Instruction Type:Patient Education Patient Instructions Indication:Non-smoker Start:08-Jul-2019 Instruction Type:Provider Instructions for Treatment How to access health informa tion online Indication:Non-smoker Start:28-Apr-2019 Instruction Type:Patient Education How to access health informa tion online - Detail Indication:Non-smoker Start:28-Apr-2019 Instruction Type:Patient Education Patient Instructions Indication:Non-smoker Start:28-Apr-2019 Instruction Type:Provider Instructions for Treatment How to access health informa tion online Indication:Abnormal glucose tolerance test Start:10-Mar-2019 Instruction Type:Patient Education How to access health informa tion online - Detail Indication:Abnormal glucose tolerance test Start:10-Mar-2019 Instruction Type:Patient Education Patient Instructions Indication:Abnormal glucose tolerance test Start:10-Mar-2019 Instruction Type:Provider Instructions for Treatment How to access health informa tion online Indication:Abnormal glucose tolerance test Start:25-Oct-2018 Instruction Type:Patient Education How to access health informa tion online - Detail Indication:Abnormal glucose tolerance test Start:25-Oct-2018 Instruction Type:Patient Education Patient Instructions Indication:Abnormal glucose tolerance test Start:25-Oct-2018 Instruction Type:Provider Instructions for Treatment How to access health informa tion online - Detail Indication:Bronchitis Start:27-Sep-2018 Instruction Type:Patient Education Patient Instructions Indication:BMI 36.0-36.9,adult Start:27-Sep-2018 Instruction Type:Provider Instructions for Treatment How to access health informa tion online Indication:Non-smoker Start:21-Jun-2018 Instruction Type:Patient Education How to access health informa tion online - Detail Indication:Non-smoker Start:21-Jun-2018 Instruction Type:Patient Education Patient Instructions Indication:Non-smoker Start:21-Jun-2018 Instruction Type:Provider Instructions for Treatment How to access health informa tion online Indication:Non-smoker Start:10-May-2018 Instruction Type:Patient Education How to access health informa tion online - Detail Indication:Non-smoker Start:10-May-2018 Instruction Type:Patient Education Patient Instructions Indication:BMI 35.0-35.9,adult Start:10-May-2018 Instruction Type:Provider Instructions for Treatment How to access health informa tion online Indication:Non-smoker Start:14-Dec-2017 Instruction Type:Patient Education How to access health informa tion online - Detail Indication:Non-smoker Start:14-Dec-2017 Instruction Type:Patient Education Patient Instructions Indication:Non-smoker Start:14-Dec-2017 Instruction Type:Provider Instructions for Treatment How to access health informa tion online Indication:Cough Start:23-Jun-2017 Instruction Type:Patient Education How to access health informa tion online - Detail Indication:Cough Start:23-Jun-2017 Instruction Type:Patient Education Patient Instructions Indication:Cough Start:23-Jun-2017 Instruction Type:Provider Instructions for Treatment How to access health informa tion online Indication:Hyperlipidemia, mild Start:08-Jun-2017 Instruction Type:Patient Education How to access health informa tion online - Detail Indication:Hyperlipidemia, mild Start:08-Jun-2017 Instruction Type:Patient Education Patient Instructions Indication:Hyperlipidemia, mild Start:08-Jun-2017 Instruction Type:Provider Instructions for Treatment How to access health informa tion online Indication:Non-smoker Start:28-Apr-2017 Instruction Type:Patient Education How to access health informa tion online - Detail Indication:Non-smoker Start:28-Apr-2017 Instruction Type:Patient Education Patient Instructions Indication:Non-smoker Start:28-Apr-2017 Instruction Type:Provider Instructions for Treatment How to access health informa tion online Indication:BMI 34.0-34.9,adult Start:16-Apr-2017 Instruction Type:Patient Education How to access health informa tion online - Detail Indication:BMI 34.0-34.9,adult Start:16-Apr-2017 Instruction Type:Patient Education Patient Instructions Indication:BMI 34.0-34.9,adult Start:16-Apr-2017 Instruction Type:Provider Instructions for Treatment How to access health informa tion online Indication:Non-smoker Start:15-Jan-2017 Instruction Type:Patient Education How to access health informa tion online - Detail Indication:Non-smoker Start:15-Jan-2017 Instruction Type:Patient Education Patient Instructions Indication:Non-smoker Start:15-Jan-2017 Instruction Type:Provider Instructions for Treatment How to access health informa tion online Indication:BMI 35.0-35.9,adult Start:15-Dec-2016 Instruction Type:Patient Education How to access health informa tion online - Detail Indication:BMI 35.0-35.9,adult Start:15-Dec-2016 Instruction Type:Patient Education Patient Instructions Indication:BMI 35.0-35.9,adult Start:15-Dec-2016 Instruction Type:Provider Instructions for Treatment How to access health informa tion online Indication:Chronic asthma, unspecified asthma severity, uncomplicated Start:12-Sep-2016 Instruction Type:Patient Education How to access health informa tion online - Detail Indication:Chronic asthma, unspecified asthma severity, uncomplicated Start:12-Sep-2016 Instruction Type:Patient Education Patient Instructions Indication:Chronic asthma, unspecified asthma severity, uncomplicated Start:12-Sep-2016 Instruction Type:Provider Instructions for Treatment How to access health informa tion online Indication:Acute asthma flare Start:08-Sep-2016 Instruction Type:Patient Education How to access health informa tion online - Detail Indication:Acute asthma flare Start:08-Sep-2016 Instruction Type:Patient Education Patient Instructions Indication:Acute asthma flare Start:08-Sep-2016 Instruction Type:Provider Instructions for Treatment How to access health informa tion online Indication:Acute asthma flare Start:01-Sep-2016 Instruction Type:Patient Education How to access health informa tion online - Detail Indication:Acute asthma flare Start:01-Sep-2016 Instruction Type:Patient Education Patient Instructions Indication:Acute asthma flare Start:01-Sep-2016 Instruction Type:Provider Instructions for Treatment How to access health informa tion online Indication:Non-smoker Start:25-Aug-2016 Instruction Type:Patient Education How to access health informa tion online - Detail Indication:Non-smoker Start:25-Aug-2016 Instruction Type:Patient Education Patient Instructions Indication:Non-smoker Start:25-Aug-2016 Instruction Type:Provider Instructions for Treatment How to access health informa tion online Indication:BMI 34.0-34.9,adult Start:21-Jul-2016 Instruction Type:Patient Education How to access health informa tion online - Detail Indication:BMI 34.0-34.9,adult Start:21-Jul-2016 Instruction Type:Patient Education Patient Instructions Indication:BMI 34.0-34.9,adult Start:21-Jul-2016 Instruction Type:Provider Instructions for Treatment How to access health informa tion online Indication:Non-smoker Start:15-Apr-2016 Instruction Type:Patient Education How to access health informa tion online - Detail Indication:Non-smoker Start:15-Apr-2016 Instruction Type:Patient Education Patient Instructions Indication:Non-smoker Start:15-Apr-2016 Instruction Type:Provider Instructions for Treatment How to access health informa tion online Indication:Non-smoker Start:13-Mar-2016 Instruction Type:Patient Education How to access health informa tion online - Detail Indication:Non-smoker Start:13-Mar-2016 Instruction Type:Patient Education Patient Instructions Indication:Non-smoker Start:13-Mar-2016 Instruction Type:Provider Instructions for Treatment How to access health informa tion online Indication:Hypertension Start:07-Feb-2016 Instruction Type:Patient Education How to access health informa tion online - Detail Indication:Hypertension Start:07-Feb-2016 Instruction Type:Patient Education Patient Instructions Indication:Hypertension Start:07-Feb-2016 Instruction Type:Provider Instructions for Treatment How to access health informa tion online Indication:Sore throat Start:23-Jan-2016 Instruction Type:Patient Education How to access health informa tion online - Detail Indication:Sore throat Start:23-Jan-2016 Instruction Type:Patient Education Patient Instructions Indication:Sore throat Start:23-Jan-2016 Instruction Type:Provider Instructions for Treatment How to access health informa tion online Indication:Non-smoker Start:08-Jan-2016 Instruction Type:Patient Education How to access health informa tion online - Detail Indication:Non-smoker Start:08-Jan-2016 Instruction Type:Patient Education Patient Instructions Indication:Non-smoker Start:08-Jan-2016 Instruction Type:Provider Instructions for Treatment [facility]; [facility] Work Phone: Instructions* Name Dates Details Patient Instructions Indication:Low back pain, episodic Start:06-Nov-2022 Instruction Type:Provider Instructions for Treatment How to Access Health Informa tion Online using Patient Portal and [employer]rd [employer] Apps Indication:Low back pain, episodic Start:06-Nov-2022 Instruction Type:Patient Education Patient Instructions Indication:BMI 33.0-33.9,adult Start:10-Sep-2022 Instruction Type:Provider Instructions for Treatment How to Access Health Informa tion Online using Patient Portal and [employer]rd [employer] Apps Indication:BMI 33.0-33.9,adult Start:10-Sep-2022 Instruction Type:Patient Education Patient Instructions Indication:Non-smoker Start:20-Aug-2022 Instruction Type:Provider Instructions for Treatment How to Access Health Informa tion Online using Patient Portal and [employer]rd [employer] Apps Indication:Non-smoker Start:20-Aug-2022 Instruction Type:Patient Education Patient Instructions Indication:Non-smoker Start:28-Apr-2022 Instruction Type:Provider Instructions for Treatment How to Access Health Informa tion Online using Patient Portal and [employer]rd [employer] Apps Indication:Non-smoker Start:28-Apr-2022 Instruction Type:Patient Education Patient Instructions Indication:BMI 37.0-37.9, adult Start:06-May-2021 Instruction Type:Provider Instructions for Treatment How to Access Health Informa tion Online using Patient Portal and [employer]rd [employer] Apps Indication:BMI 37.0-37.9, adult Start:06-May-2021 Instruction Type:Patient Education Patient Instructions Indication:BMI 34.0-34.9,adult Start:28-Dec-2020 Instruction Type:Provider Instructions for Treatment How to Access Health Informa tion Online using Patient Portal and [employer]rd [employer] Apps Indication:BMI 34.0-34.9,adult Start:28-Dec-2020 Instruction Type:Patient Education Patient Instructions Indication:Non-smoker Start:01-Nov-2020 Instruction Type:Provider Instructions for Treatment How to Access Health Informa tion Online using Patient Portal and [employer]rd [employer] Apps Indication:Non-smoker Start:01-Nov-2020 Instruction Type:Patient Education Patient Instructions Indication:Non-smoker Start:09-Aug-2020 Instruction Type:Provider Instructions for Treatment How to Access Health Informa tion Online using Patient Portal and [employer]rd [employer] Apps Indication:Non-smoker Start:09-Aug-2020 Instruction Type:Patient Education How to Access Health Informa tion Online using Patient Portal and [employer]rd [employer] Apps Indication:Non-smoker Start:06-Aug-2020 Instruction Type:Patient Education Patient Instructions Indication:Non-smoker Start:06-Aug-2020 Instruction Type:Provider Instructions for Treatment How to Access Health Informa tion Online using Patient Portal and [employer]rd [employer] Apps Indication:Non-smoker Start:09-Jul-2020 Instruction Type:Patient Education Patient Instructions Indication:Non-smoker Start:09-Jul-2020 Instruction Type:Provider Instructions for Treatment How to access health informa tion online Indication:Non-smoker Start:08-Jul-2019 Instruction Type:Patient Education How to access health informa tion online - Detail Indication:Non-smoker Start:08-Jul-2019 Instruction Type:Patient Education Patient Instructions Indication:Non-smoker Start:08-Jul-2019 Instruction Type:Provider Instructions for Treatment How to access health informa tion online Indication:Non-smoker Start:28-Apr-2019 Instruction Type:Patient Education How to access health informa tion online - Detail Indication:Non-smoker Start:28-Apr-2019 Instruction Type:Patient Education Patient Instructions Indication:Non-smoker Start:28-Apr-2019 Instruction Type:Provider Instructions for Treatment How to access health informa tion online Indication:Abnormal glucose tolerance test Start:10-Mar-2019 Instruction Type:Patient Education How to access health informa tion online - Detail Indication:Abnormal glucose tolerance test Start:10-Mar-2019 Instruction Type:Patient Education Patient Instructions Indication:Abnormal glucose tolerance test Start:10-Mar-2019 Instruction Type:Provider Instructions for Treatment How to access health informa tion online Indication:Abnormal glucose tolerance test Start:25-Oct-2018 Instruction Type:Patient Education How to access health informa tion online - Detail Indication:Abnormal glucose tolerance test Start:25-Oct-2018 Instruction Type:Patient Education Patient Instructions Indication:Abnormal glucose tolerance test Start:25-Oct-2018 Instruction Type:Provider Instructions for Treatment How to access health informa tion online - Detail Indication:Bronchitis Start:27-Sep-2018 Instruction Type:Patient Education Patient Instructions Indication:BMI 36.0-36.9,adult Start:27-Sep-2018 Instruction Type:Provider Instructions for Treatment How to access health informa tion online Indication:Non-smoker Start:21-Jun-2018 Instruction Type:Patient Education How to access health informa tion online - Detail Indication:Non-smoker Start:21-Jun-2018 Instruction Type:Patient Education Patient Instructions Indication:Non-smoker Start:21-Jun-2018 Instruction Type:Provider Instructions for Treatment How to access health informa tion online Indication:Non-smoker Start:10-May-2018 Instruction Type:Patient Education How to access health informa tion online - Detail Indication:Non-smoker Start:10-May-2018 Instruction Type:Patient Education Patient Instructions Indication:BMI 35.0-35.9,adult Start:10-May-2018 Instruction Type:Provider Instructions for Treatment How to access health informa tion online Indication:Non-smoker Start:14-Dec-2017 Instruction Type:Patient Education How to access health informa tion online - Detail Indication:Non-smoker Start:14-Dec-2017 Instruction Type:Patient Education Patient Instructions Indication:Non-smoker Start:14-Dec-2017 Instruction Type:Provider Instructions for Treatment How to access health informa tion online Indication:Cough Start:23-Jun-2017 Instruction Type:Patient Education How to access health informa tion online - Detail Indication:Cough Start:23-Jun-2017 Instruction Type:Patient Education Patient Instructions Indication:Cough Start:23-Jun-2017 Instruction Type:Provider Instructions for Treatment How to access health informa tion online Indication:Hyperlipidemia, mild Start:08-Jun-2017 Instruction Type:Patient Education How to access health informa tion online - Detail Indication:Hyperlipidemia, mild Start:08-Jun-2017 Instruction Type:Patient Education Patient Instructions Indication:Hyperlipidemia, mild Start:08-Jun-2017 Instruction Type:Provider Instructions for Treatment How to access health informa tion online Indication:Non-smoker Start:28-Apr-2017 Instruction Type:Patient Education How to access health informa tion online - Detail Indication:Non-smoker Start:28-Apr-2017 Instruction Type:Patient Education Patient Instructions Indication:Non-smoker Start:28-Apr-2017 Instruction Type:Provider Instructions for Treatment How to access health informa tion online Indication:BMI 34.0-34.9,adult Start:16-Apr-2017 Instruction Type:Patient Education How to access health informa tion online - Detail Indication:BMI 34.0-34.9,adult Start:16-Apr-2017 Instruction Type:Patient Education Patient Instructions Indication:BMI 34.0-34.9,adult Start:16-Apr-2017 Instruction Type:Provider Instructions for Treatment How to access health informa tion online Indication:Non-smoker Start:15-Jan-2017 Instruction Type:Patient Education How to access health informa tion online - Detail Indication:Non-smoker Start:15-Jan-2017 Instruction Type:Patient Education Patient Instructions Indication:Non-smoker Start:15-Jan-2017 Instruction Type:Provider Instructions for Treatment How to access health informa tion online Indication:BMI 35.0-35.9,adult Start:15-Dec-2016 Instruction Type:Patient Education How to access health informa tion online - Detail Indication:BMI 35.0-35.9,adult Start:15-Dec-2016 Instruction Type:Patient Education Patient Instructions Indication:BMI 35.0-35.9,adult Start:15-Dec-2016 Instruction Type:Provider Instructions for Treatment How to access health informa tion online Indication:Chronic asthma, unspecified asthma severity, uncomplicated Start:12-Sep-2016 Instruction Type:Patient Education How to access health informa tion online - Detail Indication:Chronic asthma, unspecified asthma severity, uncomplicated Start:12-Sep-2016 Instruction Type:Patient Education Patient Instructions Indication:Chronic asthma, unspecified asthma severity, uncomplicated Start:12-Sep-2016 Instruction Type:Provider Instructions for Treatment How to access health informa tion online Indication:Acute asthma flare Start:08-Sep-2016 Instruction Type:Patient Education How to access health informa tion online - Detail Indication:Acute asthma flare Start:08-Sep-2016 Instruction Type:Patient Education Patient Instructions Indication:Acute asthma flare Start:08-Sep-2016 Instruction Type:Provider Instructions for Treatment How to access health informa tion online Indication:Acute asthma flare Start:01-Sep-2016 Instruction Type:Patient Education How to access health informa tion online - Detail Indication:Acute asthma flare Start:01-Sep-2016 Instruction Type:Patient Education Patient Instructions Indication:Acute asthma flare Start:01-Sep-2016 Instruction Type:Provider Instructions for Treatment How to access health informa tion online Indication:Non-smoker Start:25-Aug-2016 Instruction Type:Patient Education How to access health informa tion online - Detail Indication:Non-smoker Start:25-Aug-2016 Instruction Type:Patient Education Patient Instructions Indication:Non-smoker Start:25-Aug-2016 Instruction Type:Provider Instructions for Treatment How to access health informa tion online Indication:BMI 34.0-34.9,adult Start:21-Jul-2016 Instruction Type:Patient Education How to access health informa tion online - Detail Indication:BMI 34.0-34.9,adult Start:21-Jul-2016 Instruction Type:Patient Education Patient Instructions Indication:BMI 34.0-34.9,adult Start:21-Jul-2016 Instruction Type:Provider Instructions for Treatment How to access health informa tion online Indication:Non-smoker Start:15-Apr-2016 Instruction Type:Patient Education How to access health informa tion online - Detail Indication:Non-smoker Start:15-Apr-2016 Instruction Type:Patient Education Patient Instructions Indication:Non-smoker Start:15-Apr-2016 Instruction Type:Provider Instructions for Treatment How to access health informa tion online Indication:Non-smoker Start:13-Mar-2016 Instruction Type:Patient Education How to access health informa tion online - Detail Indication:Non-smoker Start:13-Mar-2016 Instruction Type:Patient Education Patient Instructions Indication:Non-smoker Start:13-Mar-2016 Instruction Type:Provider Instructions for Treatment How to access health informa tion online Indication:Hypertension Start:07-Feb-2016 Instruction Type:Patient Education How to access health informa tion online - Detail Indication:Hypertension Start:07-Feb-2016 Instruction Type:Patient Education Patient Instructions Indication:Hypertension Start:07-Feb-2016 Instruction Type:Provider Instructions for Treatment How to access health informa tion online Indication:Sore throat Start:23-Jan-2016 Instruction Type:Patient Education How to access health informa tion online - Detail Indication:Sore throat Start:23-Jan-2016 Instruction Type:Patient Education Patient Instructions Indication:Sore throat Start:23-Jan-2016 Instruction Type:Provider Instructions for Treatment How to access health informa tion online Indication:Non-smoker Start:08-Jan-2016 Instruction Type:Patient Education How to access health informa tion online - Detail Indication:Non-smoker Start:08-Jan-2016 Instruction Type:Patient Education Patient Instructions Indication:Non-smoker Start:08-Jan-2016 Instruction Type:Provider Instructions for Treatment [facility] Work Phone: reason for referral (narrative)No reason [facility] referral information availableB[facility]: Summary Purpose Family History No Family History Records FoundUnknown Family Member Name Dates Details Anxiety Disorder Comments:Mother. Status:Active Asthma Comments:Maternal Grandfathe r. Status:Active Cancer Comments:Brother. Bladder Status:Active Heart Disease Comments:Father. Paternal Gr andmother. Paternal Grandfather. Brother. Status:Active Hypercholesterolemia Comments:Mother. Status:Active Hypertension Comments:Mother. Status:Active Kidney Disease Comments:Mother. Status:Active Lung/Respiratory Disease Comments:Maternal Grandfathe r. Status:Active Unknown Family Member Name Dates Details Anxiety Disorder Comments:Mother. Status:Active Asthma Comments:Maternal Grandfathe r. Status:Active Cancer Comments:Brother. Bladder Status:Active Heart Disease Comments:Father. Paternal Gr andmother. Paternal Grandfather. Brother. Status:Active Hypercholesterolemia Comments:Mother. Status:Active Hypertension Comments:Mother. Status:Active Kidney Disease Comments:Mother. Status:Active Lung/Respiratory Disease Comments:Maternal Grandfathe r. Status:Active Unknown Family Member Name Dates Details Anxiety Disorder Comments:Mother. Status:Active Asthma Comments:Maternal Grandfathe r. Status:Active Cancer Comments:Brother. Bladder Status:Active Heart Disease Comments:Father. Paternal Gr andmother. Paternal Grandfather. Brother. Status:Active Hypercholesterolemia Comments:Mother. Status:Active Hypertension Comments:Mother. Status:Active Kidney Disease Comments:Mother. Status:Active Lung/Respiratory Disease Comments:Maternal Grandfathe r. Status:Active Unknown Family Member Name Dates Details Anxiety Disorder Comments:Mother. Status:Active Asthma Comments:Maternal Grandfathe r. Status:Active Cancer Comments:Brother. Bladder Status:Active Heart Disease Comments:Father. Paternal Gr andmother. Paternal Grandfather. Brother. Status:Active Hypercholesterolemia Comments:Mother. Status:Active Hypertension Comments:Mother. Status:Active Kidney Disease Comments:Mother. Status:Active Lung/Respiratory Disease Comments:Maternal Grandfathe r. Status:Active Unknown Family Member Name Dates Details Anxiety Disorder Comments:Mother. Status:Active Asthma Comments:Maternal Grandfathe r. Status:Active Cancer Comments:Brother. Bladder Status:Active Heart Disease Comments:Father. Paternal Gr andmother. Paternal Grandfather. Brother. Status:Active Hypercholesterolemia Comments:Mother. Status:Active Hypertension Comments:Mother. Status:Active Kidney Disease Comments:Mother. Status:Active Lung/Respiratory Disease Comments:Maternal Grandfathe r. Status:Active Unknown Family Member Name Dates Details Anxiety Disorder Comments:Mother. Status:Active Asthma Comments:Maternal Grandfathe r. Status:Active Cancer Comments:Brother. Bladder Status:Active Heart Disease Comments:Father. Paternal Gr andmother. Paternal Grandfather. Brother. Status:Active Hypercholesterolemia Comments:Mother. Status:Active Hypertension Comments:Mother. Status:Active Kidney Disease Comments:Mother. Status:Active Lung/Respiratory Disease Comments:Maternal Grandfathe r. Status:Active Unknown Family Member Name Dates Details Anxiety Disorder Comments:Mother. Status:Active Asthma Comments:Maternal Grandfathe r. Status:Active Cancer Comments:Brother. Bladder Status:Active Heart Disease Comments:Father. Paternal Gr andmother. Paternal Grandfather. Brother. Status:Active Hypercholesterolemia Comments:Mother. Status:Active Hypertension Comments:Mother. Status:Active Kidney Disease Comments:Mother. Status:Active Lung/Respiratory Disease Comments:Maternal Grandfathe r. Status:Active Unknown Family Member Name Dates Details Anxiety Disorder Comments:Mother. Status:Active Asthma Comments:Maternal Grandfathe r. Status:Active Cancer Comments:Brother. Bladder Status:Active Heart Disease Comments:Father. Paternal Gr andmother. Paternal Grandfather. Brother. Status:Active Hypercholesterolemia Comments:Mother. Status:Active Hypertension Comments:Mother. Status:Active Kidney Disease Comments:Mother. Status:Active Lung/Respiratory Disease Comments:Maternal Grandfathe r. Status:Active Unknown Family Member Name Dates Details Anxiety Disorder Comments:Mother. Status:Active Asthma Comments:Maternal Grandfathe r. Status:Active Cancer Comments:Brother. Bladder Status:Active Heart Disease Comments:Father. Paternal Gr andmother. Paternal Grandfather. Brother. Status:Active Hypercholesterolemia Comments:Mother. Status:Active Hypertension Comments:Mother. Status:Active Kidney Disease Comments:Mother. Status:Active Lung/Respiratory Disease Comments:Maternal Grandfathe r. Status:Active Unknown Family Member Name Dates Details Anxiety Disorder Comments:Mother. Status:Active Asthma Comments:Maternal Grandfathe r. Status:Active Cancer Comments:Brother. Bladder Status:Active Heart Disease Comments:Father. Paternal Gr andmother. Paternal Grandfather. Brother. Status:Active Hypercholesterolemia Comments:Mother. Status:Active Hypertension Comments:Mother. Status:Active Kidney Disease Comments:Mother. Status:Active Lung/Respiratory Disease Comments:Maternal Grandfathe r. Status:Active Unknown Family Member Name Dates Details Anxiety Disorder Comments:Mother. Status:Active Asthma Comments:Maternal Grandfathe r. Status:Active Cancer Comments:Brother. Bladder Status:Active Heart Disease Comments:Father. Paternal Gr andmother. Paternal Grandfather. Brother. Status:Active Hypercholesterolemia Comments:Mother. Status:Active Hypertension Comments:Mother. Status:Active Kidney Disease Comments:Mother. Status:Active Lung/Respiratory Disease Comments:Maternal Grandfathe r. Status:Active Unknown Family Member Name Dates Details Anxiety Disorder Comments:Mother. Status:Active Asthma Comments:Maternal Grandfathe r. Status:Active Cancer Comments:Brother. Bladder Status:Active Heart Disease Comments:Father. Paternal Gr andmother. Paternal Grandfather. Brother. Status:Active Hypercholesterolemia Comments:Mother. Status:Active Hypertension Comments:Mother. Status:Active Kidney Disease Comments:Mother. Status:Active Lung/Respiratory Disease Comments:Maternal Grandfathe r. Status:Active Unknown Family Member Name Dates Details Anxiety Disorder Comments:Mother. Status:Active Asthma Comments:Maternal Grandfathe r. Status:Active Cancer Comments:Brother. Bladder Status:Active Heart Disease Comments:Father. Paternal Gr andmother. Paternal Grandfather. Brother. Status:Active Hypercholesterolemia Comments:Mother. Status:Active Hypertension Comments:Mother. Status:Active Kidney Disease Comments:Mother. Status:Active Lung/Respiratory Disease Comments:Maternal Grandfathe r. Status:Active Unknown Family Member Name Dates Details Anxiety Disorder Comments:Mother. Status:Active Asthma Comments:Maternal Grandfathe r. Status:Active Cancer Comments:Brother. Bladder Status:Active Heart Disease Comments:Father. Paternal Gr andmother. Paternal Grandfather. Brother. Status:Active Hypercholesterolemia Comments:Mother. Status:Active Hypertension Comments:Mother. Status:Active Kidney Disease Comments:Mother. Status:Active Lung/Respiratory Disease Comments:Maternal Grandfathe r. Status:Active Unknown Family Member Name Dates Details Anxiety Disorder Comments:Mother. Status:Active Asthma Comments:Maternal Grandfathe r. Status:Active Cancer Comments:Brother. Bladder Status:Active Heart Disease Comments:Father. Paternal Gr andmother. Paternal Grandfather. Brother. Status:Active Hypercholesterolemia Comments:Mother. Status:Active Hypertension Comments:Mother. Status:Active Kidney Disease Comments:Mother. Status:Active Lung/Respiratory Disease Comments:Maternal Grandfathe r. Status:Active Unknown Family Member Name Dates Details Anxiety Disorder Comments:Mother. Status:Active Asthma Comments:Maternal Grandfathe r. Status:Active Cancer Comments:Brother. Bladder Status:Active Heart Disease Comments:Father. Paternal Gr andmother. Paternal Grandfather. Brother. Status:Active Hypercholesterolemia Comments:Mother. Status:Active Hypertension Comments:Mother. Status:Active Kidney Disease Comments:Mother. Status:Active Lung/Respiratory Disease Comments:Maternal Grandfathe r. Status:Active Unknown Family Member Name Dates Details Anxiety Disorder Comments:Mother. Status:Active Asthma Comments:Maternal Grandfathe r. Status:Active Cancer Comments:Brother. Bladder Status:Active Heart Disease Comments:Father. Paternal Gr andmother. Paternal Grandfather. Brother. Status:Active Hypercholesterolemia Comments:Mother. Status:Active Hypertension Comments:Mother. Status:Active Kidney Disease Comments:Mother. Status:Active Lung/Respiratory Disease Comments:Maternal Grandfathe r. Status:Active Unknown Family Member Name Dates Details Anxiety Disorder Comments:Mother. Status:Active Asthma Comments:Maternal Grandfathe r. Status:Active Cancer Comments:Brother. Bladder Status:Active Heart Disease Comments:Father. Paternal Gr andmother. Paternal Grandfather. Brother. Status:Active Hypercholesterolemia Comments:Mother. Status:Active Hypertension Comments:Mother. Status:Active Kidney Disease Comments:Mother. Status:Active Lung/Respiratory Disease Comments:Maternal Grandfathe r. Status:Active Unknown Family Member Name Dates Details Anxiety Disorder Comments:Mother. Status:Active Asthma Comments:Maternal Grandfathe r. Status:Active Cancer Comments:Brother. Bladder Status:Active Heart Disease Comments:Father. Paternal Gr andmother. Paternal Grandfather. Brother. Status:Active Hypercholesterolemia Comments:Mother. Status:Active Hypertension Comments:Mother. Status:Active Kidney Disease Comments:Mother. Status:Active Lung/Respiratory Disease Comments:Maternal Grandfathe r. Status:Active Unknown Family Member Name Dates Details Anxiety Disorder Comments:Mother. Status:Active Asthma Comments:Maternal Grandfathe r. Status:Active Cancer Comments:Brother. Bladder Status:Active Heart Disease Comments:Father. Paternal Gr andmother. Paternal Grandfather. Brother. Status:Active Hypercholesterolemia Comments:Mother. Status:Active Hypertension Comments:Mother. Status:Active Kidney Disease Comments:Mother. Status:Active Lung/Respiratory Disease Comments:Maternal Grandfathe r. Status:Active Unknown Family Member Name Dates Details Anxiety Disorder Comments:Mother. Status:Active Asthma Comments:Maternal Grandfathe r. Status:Active Cancer Comments:Brother. Bladder Status:Active Heart Disease Comments:Father. Paternal Gr andmother. Paternal Grandfather. Brother. Status:Active Hypercholesterolemia Comments:Mother. Status:Active Hypertension Comments:Mother. Status:Active Kidney Disease Comments:Mother. Status:Active Lung/Respiratory Disease Comments:Maternal Grandfathe r. Status:Active Unknown Family Member Name Dates Details Anxiety Disorder Comments:Mother. Status:Active Asthma Comments:Maternal Grandfathe r. Status:Active Cancer Comments:Brother. Bladder Status:Active Heart Disease Comments:Father. Paternal Gr andmother. Paternal Grandfather. Brother. Status:Active Hypercholesterolemia Comments:Mother. Status:Active Hypertension Comments:Mother. Status:Active Kidney Disease Comments:Mother. Status:Active Lung/Respiratory Disease Comments:Maternal Grandfathe r. Status:Active Unknown Family Member Name Dates Details Anxiety Disorder Comments:Mother. Status:Active Asthma Comments:Maternal Grandfathe r. Status:Active Cancer Comments:Brother. Bladder Status:Active Heart Disease Comments:Father. Paternal Gr andmother. Paternal Grandfather. Brother. Status:Active Hypercholesterolemia Comments:Mother. Status:Active Hypertension Comments:Mother. Status:Active Kidney Disease Comments:Mother. Status:Active Lung/Respiratory Disease Comments:Maternal Grandfathe r. Status:Active Unknown Family Member Name Dates Details Anxiety Disorder Comments:Mother. Status:Active Asthma Comments:Maternal Grandfathe r. Status:Active Cancer Comments:Brother. Bladder Status:Active Heart Disease Comments:Father. Paternal Gr andmother. Paternal Grandfather. Brother. Status:Active Hypercholesterolemia Comments:Mother. Status:Active Hypertension Comments:Mother. Status:Active Kidney Disease Comments:Mother. Status:Active Lung/Respiratory Disease Comments:Maternal Grandfathe r. Status:Active Unknown Family Member Name Dates Details Anxiety Disorder Comments:Mother. Status:Active Asthma Comments:Maternal Grandfathe r. Status:Active Cancer Comments:Brother. Bladder Status:Active Heart Disease Comments:Father. Paternal Gr andmother. Paternal Grandfather. Brother. Status:Active Hypercholesterolemia Comments:Mother. Status:Active Hypertension Comments:Mother. Status:Active Kidney Disease Comments:Mother. Status:Active Lung/Respiratory Disease Comments:Maternal Grandfathe r. Status:Active Unknown Family Member Name Dates Details Anxiety Disorder Comments:Mother. Status:Active Asthma Comments:Maternal Grandfathe r. Status:Active Cancer Comments:Brother. Bladder Status:Active Heart Disease Comments:Father. Paternal Gr andmother. Paternal Grandfather. Brother. Status:Active Hypercholesterolemia Comments:Mother. Status:Active Hypertension Comments:Mother. Status:Active Kidney Disease Comments:Mother. Status:Active Lung/Respiratory Disease Comments:Maternal Grandfathe r. Status:Active Unknown Family Member Name Dates Details Anxiety Disorder Comments:Mother. Status:Active Asthma Comments:Maternal Grandfathe r. Status:Active Cancer Comments:Brother. Bladder Status:Active Heart Disease Comments:Father. Paternal Gr andmother. Paternal Grandfather. Brother. Status:Active Hypercholesterolemia Comments:Mother. Status:Active Hypertension Comments:Mother. Status:Active Kidney Disease Comments:Mother. Status:Active Lung/Respiratory Disease Comments:Maternal Grandfathe r. Status:Active Unknown Family Member Name Dates Details Anxiety Disorder Comments:Mother. Status:Active Asthma Comments:Maternal Grandfathe r. Status:Active Cancer Comments:Brother. Bladder Status:Active Heart Disease Comments:Father. Paternal Gr andmother. Paternal Grandfather. Brother. Status:Active Hypercholesterolemia Comments:Mother. Status:Active Hypertension Comments:Mother. Status:Active Kidney Disease Comments:Mother. Status:Active Lung/Respiratory Disease Comments:Maternal Grandfathe r. Status:Active Unknown Family Member Name Dates Details Anxiety Disorder Comments:Mother. Status:Active Asthma Comments:Maternal Grandfathe r. Status:Active Cancer Comments:Brother. Bladder Status:Active Heart Disease Comments:Father. Paternal Gr andmother. Paternal Grandfather. Brother. Status:Active Hypercholesterolemia Comments:Mother. Status:Active Hypertension Comments:Mother. Status:Active Kidney Disease Comments:Mother. Status:Active Lung/Respiratory Disease Comments:Maternal Grandfathe r. Status:Active Unknown Family Member Name Dates Details Anxiety Disorder Comments:Mother. Status:Active Asthma Comments:Maternal Grandfathe r. Status:Active Cancer Comments:Brother. Bladder Status:Active Heart Disease Comments:Father. Paternal Gr andmother. Paternal Grandfather. Brother. Status:Active Hypercholesterolemia Comments:Mother. Status:Active Hypertension Comments:Mother. Status:Active Kidney Disease Comments:Mother. Status:Active Lung/Respiratory Disease Comments:Maternal Grandfathe r. Status:Active Unknown Family Member Name Dates Details Anxiety Disorder Comments:Mother. Status:Active Asthma Comments:Maternal Grandfathe r. Status:Active Cancer Comments:Brother. Bladder Status:Active Heart Disease Comments:Father. Paternal Gr andmother. Paternal Grandfather. Brother. Status:Active Hypercholesterolemia Comments:Mother. Status:Active Hypertension Comments:Mother. Status:Active Kidney Disease Comments:Mother. Status:Active Lung/Respiratory Disease Comments:Maternal Grandfathe r. Status:Active Relationship Condition Age at Onset Recorded Date/T [place] mother Anxiety Unknown Hypertension Unknown Unknown High blood cholesterol Unknown brother Cardiac disease Unknown Malignant neoplasm Unknown Coronary artery disease Unknown father Cardiac disease Unknown Myocardial infarction 43 brother Coronary artery disease Unknown Unknown Family Member Name Dates Details Anxiety Disorder Comments:Mother. Status:Active Asthma Comments:Maternal Grandfathe r. Status:Active Cancer Comments:Brother. Bladder Status:Active Heart Disease Comments:Father. Paternal Gr andmother. Paternal Grandfather. Brother. Status:Active Hypercholesterolemia Comments:Mother. Status:Active Hypertension Comments:Mother. Status:Active Kidney Disease Comments:Mother. Status:Active Lung/Respiratory Disease Comments:Maternal Grandfathe r. Status:Active Unknown Family Member Name Dates Details Anxiety Disorder Comments:Mother. Status:Active Asthma Comments:Maternal Grandfathe r. Status:Active Cancer Comments:Brother. Bladder Status:Active Heart Disease Comments:Father. Paternal Gr andmother. Paternal Grandfather. Brother. Status:Active Hypercholesterolemia Comments:Mother. Status:Active Hypertension Comments:Mother. Status:Active Kidney Disease Comments:Mother. Status:Active Lung/Respiratory Disease Comments:Maternal Grandfathe r. Status:Active Unknown Family Member Name Dates Details Anxiety Disorder Comments:Mother. Status:Active Asthma Comments:Maternal Grandfathe r. Status:Active Cancer Comments:Brother. Bladder Status:Active Heart Disease Comments:Father. Paternal Gr andmother. Paternal Grandfather. Brother. Status:Active Hypercholesterolemia Comments:Mother. Status:Active Hypertension Comments:Mother. Status:Active Kidney Disease Comments:Mother. Status:Active Lung/Respiratory Disease Comments:Maternal Grandfathe r. Status:Active Unknown Family Member Name Dates Details Anxiety Disorder Comments:Mother. Status:Active Asthma Comments:Maternal Grandfathe r. Status:Active Cancer Comments:Brother. Bladder Status:Active Heart Disease Comments:Father. Paternal Gr andmother. Paternal Grandfather. Brother. Status:Active Hypercholesterolemia Comments:Mother. Status:Active Hypertension Comments:Mother. Status:Active Kidney Disease Comments:Mother. Status:Active Lung/Respiratory Disease Comments:Maternal Grandfathe r. Status:Active Unknown Family Member Name Dates Details Anxiety Disorder Comments:Mother. Status:Active Asthma Comments:Maternal Grandfathe r. Status:Active Cancer Comments:Brother. Bladder Status:Active Heart Disease Comments:Father. Paternal Gr andmother. Paternal Grandfather. Brother. Status:Active Hypercholesterolemia Comments:Mother. Status:Active Hypertension Comments:Mother. Status:Active Kidney Disease Comments:Mother. Status:Active Lung/Respiratory Disease Comments:Maternal Grandfathe r. Status:Active Unknown Family Member Name Dates Details Heart Disease: Family Histor y(V17.49) Status:Active Asthma: Family History(V17.5 ) Status:Active Emphysema: Family History Status:Active Unknown Family Member Name Dates Details Anxiety Disorder Comments:Mother. Status:Active Asthma Comments:Maternal Grandfathe r. Status:Active Cancer Comments:Brother. Bladder Status:Active Heart Disease Comments:Father. Paternal Gr andmother. Paternal Grandfather. Brother. Status:Active Hypercholesterolemia Comments:Mother. Status:Active Hypertension Comments:Mother. Status:Active Kidney Disease Comments:Mother. Status:Active Lung/Respiratory Disease Comments:Maternal Grandfathe r. Status:Active Unknown Family Member Name Dates Details Anxiety Disorder Comments:Mother. Status:Active Asthma Comments:Maternal Grandfathe r. Status:Active Cancer Comments:Brother. Bladder Status:Active Heart Disease Comments:Father. Paternal Gr andmother. Paternal Grandfather. Brother. Status:Active Hypercholesterolemia Comments:Mother. Status:Active Hypertension Comments:Mother. Status:Active Kidney Disease Comments:Mother. Status:Active Lung/Respiratory Disease Comments:Maternal Grandfathe r. Status:Active Unknown Family Member Name Dates Details Anxiety Disorder Comments:Mother. Status:Active Asthma Comments:Maternal Grandfathe r. Status:Active Cancer Comments:Brother. Bladder Status:Active Heart Disease Comments:Father. Paternal Gr andmother. Paternal Grandfather. Brother. Status:Active Hypercholesterolemia Comments:Mother. Status:Active Hypertension Comments:Mother. Status:Active Kidney Disease Comments:Mother. Status:Active Lung/Respiratory Disease Comments:Maternal Grandfathe r. Status:Active Unknown Family Member Name Dates Details Anxiety Disorder Comments:Mother. Status:Active Asthma Comments:Maternal Grandfathe r. Status:Active Cancer Comments:Brother. Bladder Status:Active Heart Disease Comments:Father. Paternal Gr andmother. Paternal Grandfather. Brother. Status:Active Hypercholesterolemia Comments:Mother. Status:Active Hypertension Comments:Mother. Status:Active Kidney Disease Comments:Mother. Status:Active Lung/Respiratory Disease Comments:Maternal Grandfathe r. Status:Active Unknown Family Member Name Dates Details Anxiety Disorder Comments:Mother. Status:Active Asthma Comments:Maternal Grandfathe r. Status:Active Cancer Comments:Brother. Bladder Status:Active Heart Disease Comments:Father. Paternal Gr andmother. Paternal Grandfather. Brother. Status:Active Hypercholesterolemia Comments:Mother. Status:Active Hypertension Comments:Mother. Status:Active Kidney Disease Comments:Mother. Status:Active Lung/Respiratory Disease Comments:Maternal Grandfathe r. Status:Active Unknown Family Member Name Dates Details Anxiety Disorder Comments:Mother. Status:Active Asthma Comments:Maternal Grandfathe r. Status:Active Cancer Comments:Brother. Bladder Status:Active Heart Disease Comments:Father. Paternal Gr andmother. Paternal Grandfather. Brother. Status:Active Hypercholesterolemia Comments:Mother. Status:Active Hypertension Comments:Mother. Status:Active Kidney Disease Comments:Mother. Status:Active Lung/Respiratory Disease Comments:Maternal Grandfathe r. Status:Active Unknown Family Member Name Dates Details Anxiety Disorder Comments:Mother. Status:Active Asthma Comments:Maternal Grandfathe r. Status:Active Cancer Comments:Brother. Bladder Status:Active Heart Disease Comments:Father. Paternal Gr andmother. Paternal Grandfather. Brother. Status:Active Hypercholesterolemia Comments:Mother. Status:Active Hypertension Comments:Mother. Status:Active Kidney Disease Comments:Mother. Status:Active Lung/Respiratory Disease Comments:Maternal Grandfathe r. Status:Active Unknown Family Member Name Dates Details Anxiety Disorder Comments:Mother. Status:Active Asthma Comments:Maternal Grandfathe r. Status:Active Cancer Comments:Brother. Bladder Status:Active Heart Disease Comments:Father. Paternal Gr andmother. Paternal Grandfather. Brother. Status:Active Hypercholesterolemia Comments:Mother. Status:Active Hypertension Comments:Mother. Status:Active Kidney Disease Comments:Mother. Status:Active Lung/Respiratory Disease Comments:Maternal Grandfathe r. Status:Active Unknown Family Member Name Dates Details Anxiety Disorder Comments:Mother. Status:Active Asthma Comments:Maternal Grandfathe r. Status:Active Cancer Comments:Brother. Bladder Status:Active Heart Disease Comments:Father. Paternal Gr andmother. Paternal Grandfather. Brother. Status:Active Hypercholesterolemia Comments:Mother. Status:Active Hypertension Comments:Mother. Status:Active Kidney Disease Comments:Mother. Status:Active Lung/Respiratory Disease Comments:Maternal Grandfathe r. Status:Active Unknown Family Member Name Dates Details Anxiety Disorder Comments:Mother. Status:Active Asthma Comments:Maternal Grandfathe r. Status:Active Cancer Comments:Brother. Bladder Status:Active Heart Disease Comments:Father. Paternal Gr andmother. Paternal Grandfather. Brother. Status:Active Hypercholesterolemia Comments:Mother. Status:Active Hypertension Comments:Mother. Status:Active Kidney Disease Comments:Mother. Status:Active Lung/Respiratory Disease Comments:Maternal Grandfathe r. Status:Active Unknown Family Member Name Dates Details Anxiety Disorder Comments:Mother. Status:Active Asthma Comments:Maternal Grandfathe r. Status:Active Cancer Comments:Brother. Bladder Status:Active Heart Disease Comments:Father. Paternal Gr andmother. Paternal Grandfather. Brother. Status:Active Hypercholesterolemia Comments:Mother. Status:Active Hypertension Comments:Mother. Status:Active Kidney Disease Comments:Mother. Status:Active Lung/Respiratory Disease Comments:Maternal Grandfathe r. Status:Active Unknown Family Member Name Dates Details Anxiety Disorder Comments:Mother. Status:Active Asthma Comments:Maternal Grandfathe r. Status:Active Cancer Comments:Brother. Bladder Status:Active Heart Disease Comments:Father. Paternal Gr andmother. Paternal Grandfather. Brother. Status:Active Hypercholesterolemia Comments:Mother. Status:Active Hypertension Comments:Mother. Status:Active Kidney Disease Comments:Mother. Status:Active Lung/Respiratory Disease Comments:Maternal Grandfathe r. Status:Active Advance Directives No Advanced Directives Records Found Name Dates Details Immunization Registry [place] - Effective on 12/14/2017. Expiration date unspecified Effective:14-Dec-2017 Name Dates Details Immunization Registry [place] - Effective on 12/14/2017. Expiration date unspecified Effective:14-Dec-2017 Name Dates Details Immunization Registry [place] - Effective on 12/14/2017. Expiration date unspecified Effective:14-Dec-2017 Name Dates Details Immunization Registry [place] - Effective on 12/14/2017. Expiration date unspecified Effective:14-Dec-2017 Name Dates Details Immunization Registry [place] - Effective on 12/14/2017. Expiration date unspecified Effective:14-Dec-2017 Name Dates Details Immunization Registry [place] - Effective on 12/14/2017. Expiration date unspecified Effective:14-Dec-2017 Name Dates Details Immunization Registry [place] - Effective on 12/14/2017. Expiration date unspecified Effective:14-Dec-2017 Name Dates Details Immunization Registry [place] - Effective on 12/27/2018. Expiration date unspecified Effective:27-Dec-2018 Name Dates Details Immunization Registry [place] - Effective on 12/27/2018. Expiration date unspecified Effective:27-Dec-2018 Name Dates Details Immunization Registry [place] - Effective on 12/27/2018. Expiration date unspecified Effective:27-Dec-2018 Name Dates Details Immunization Registry [place] - Effective on 12/27/2018. Expiration date unspecified Effective:27-Dec-2018 Name Dates Details Immunization Registry [place] - Effective on 12/27/2018. Expiration date unspecified Effective:27-Dec-2018 Name Dates Details Immunization Registry [place] - Effective on 12/27/2018. Expiration date unspecified Effective:27-Dec-2018 Name Dates Details Immunization Registry [place] - Effective on 12/27/2018. Expiration date unspecified Effective:27-Dec-2018 Name Dates Details Immunization Registry [place] - Effective on 12/14/2017. Expiration date unspecified Effective:14-Dec-2017 Name Dates Details Immunization Registry [place] - Effective on 12/27/2018. Expiration date unspecified Effective:27-Dec-2018 Name Dates Details Immunization Registry [place] - Effective on 12/27/2018. Expiration date unspecified Effective:27-Dec-2018 Name Dates Details Immunization Registry [place] - Effective on 12/27/2018. Expiration date unspecified Effective:27-Dec-2018 Name Dates Details Immunization Registry [place] - Effective on 12/27/2018. Expiration date unspecified Effective:27-Dec-2018 Name Dates Details Immunization Registry [place] - Effective on 12/27/2018. Expiration date unspecified Effective:27-Dec-2018 Name Dates Details Immunization Registry [place] - Effective on 12/27/2018. Expiration date unspecified Effective:27-Dec-2018 Name Dates Details Immunization Registry [place] - Effective on 12/27/2018. Expiration date unspecified Effective:27-Dec-2018 Name Dates Details Immunization Registry [place] - Effective on 12/27/2018. Expiration date unspecified Effective:27-Dec-2018 Name Dates Details Immunization Registry [place] - Effective on 12/27/2018. Expiration date unspecified Effective:27-Dec-2018 Name Dates Details Immunization Registry [place] - Effective on 12/27/2018. Expiration date unspecified Effective:27-Dec-2018 Name Dates Details Immunization Registry [place] - Effective on 12/27/2018. Expiration date unspecified Effective:27-Dec-2018 Name Dates Details Immunization Registry [place] - Effective on 12/27/2018. Expiration date unspecified Effective:27-Dec-2018 Advance Directive Response Recorded Date/ Time Advance Directives Yes March 2:28pm Living Will Yes June 25, 2019 11 :39am Power of Parts Salesman Yes June 25, 2019 11:39am Advance Directive Response Recorded Date/ Time Name of Medical Power of Parts Salesman Antwan null October 18, 2021 8:10pm Advance Directives Yes March 2:28pm Living Will Yes October 18, 022 8:10pm Power of Parts Salesman Yes October 18, 2021 8:10pm Name Dates Details Immunization Registry [place] - Effective on 12/27/2018. Expiration date unspecified Effective:27-Dec-2018 Name Dates Details Immunization Registry [place] - Effective on 12/27/2018. Expiration date unspecified Effective:27-Dec-2018 Name Dates Details Immunization Registry [place] - Effective on 12/27/2018. Expiration date unspecified Effective:27-Dec-2018 Advance Directive Response Recorded Date/ Time Advance Directives Yes March 1:28pm Living Will Yes October 18, 022 7:10pm Power of Parts Salesman Yes October 18, 2021 7:10pm Name Dates Details Immunization Registry [place] - Effective on 12/27/2018. Expiration date unspecified Effective:27-Dec-2018 Name Dates Details Immunization Registry [place] - Effective on 12/27/2018. Expiration date unspecified Effective:27-Dec-2018 Advance Directive Response Recorded Date/ Time Advance Directives Yes March 2:28pm Living Will Yes October 18, 022 8:10pm Power of Parts Salesman Yes October 18, 2021 8:10pm Name Dates Details Immunization Registry [place] - Effective on 12/27/2018. Expiration date unspecified Effective:27-Dec-2018 Name Dates Details Immunization Registry [place] - Effective on 12/27/2018. Expiration date unspecified Effective:27-Dec-2018 Name Dates Details Immunization Registry [place] - Effective on 12/27/2018. Expiration date unspecified Effective:27-Dec-2018 Name Dates Details Immunization Registry [place] - Effective on 12/27/2018. Expiration date unspecified Effective:27-Dec-2018 Name Dates Details Immunization Registry [place] - Effective on 12/27/2018. Expiration date unspecified Effective:27-Dec-2018 Advance Directive Response Recorded Date/ Time Name of Medical Power of Parts Salesman SELENA November 10, 2022 4:13pm Advance Directives Yes March 1:28pm Living Will Yes November 10, 2022 4:13pm Power of Parts Salesman Yes October 4:13pm Advance Directive Response Recorded Date/ Time Living Will Yes April 26, 2024 8:33pm Power of Parts Salesman Yes April 26 8:33pm Name of Medical Power of Parts Salesman Evita forrest April 26, 2024 8:33pm Advance Directives Yes March 2:28pm Advance Directive Response Recorded Date/ Time Living Will Yes November 10, 2022 5:13pm Do you have a Healthcare Power of Parts Salesman? Yes November 10, 2022 5:13pm Advance Directives Yes March 2:28pm Instructions Name Dates Details Non-smoker : How to access h ealth information online Indication:Non-smoker Non-smoker : How to access h ealth information online - Detail Indication:Non-smoker Non-smoker : Patient Instruc tions Indication:Non-smoker Cough : How to access health information online Indication:Cough Cough : How to access health information online - Detail Indication:Cough Cough : Patient Instructions Indication:Cough Hyperlipidemia, mild : How t o access health information online Indication:Hyperlipidemia, mild Hyperlipidemia, mild : How t o access health information online - Detail Indication:Hyperlipidemia, mild Hyperlipidemia, mild : Patie nt Instructions Indication:Hyperlipidemia, mild BMI 34.0-34.9,adult : How to access health information online Indication:BMI 34.0-34.9,adult BMI 34.0-34.9,adult : How to access health information online - Detail Indication:BMI 34.0-34.9,adult BMI 34.0-34.9,adult : Patien t Instructions Indication:BMI 34.0-34.9,adult BMI 35.0-35.9,adult : How to access health information online Indication:BMI 35.0-35.9,adult BMI 35.0-35.9,adult : How to access health information online - Detail Indication:BMI 35.0-35.9,adult BMI 35.0-35.9,adult : Patien t Instructions Indication:BMI 35.0-35.9,adult Chronic asthma, unspecified asthma severity, uncomplicated : How to access health information online Indication:Chronic asthma, unspecified asthma severity, uncomplicated Chronic asthma, unspecified asthma severity, uncomplicated : How to access health information online - Detail Indication:Chronic asthma, unspecified asthma severity, uncomplicated Chronic asthma, unspecified asthma severity, uncomplicated : Patient Instructions Indication:Chronic asthma, unspecified asthma severity, uncomplicated Acute asthma flare : How to access health information online Indication:Acute asthma flare Acute asthma flare : How to access health information online - Detail Indication:Acute asthma flare Acute asthma flare : Patient Instructions Indication:Acute asthma flare Hypertension : How to access health information online Indication:Hypertension Hypertension : How to access health information online - Detail Indication:Hypertension Hypertension : Patient Instr uctions Indication:Hypertension Sore throat : How to access health information online Indication:Sore throat Sore throat : How to access health information online - Detail Indication:Sore throat Sore throat : Patient Instru ctions Indication:Sore throat Name Dates Details Non-smoker : How to access h ealth information online Indication:Non-smoker Non-smoker : How to access h ealth information online - Detail Indication:Non-smoker Non-smoker : Patient Instruc tions Indication:Non-smoker Cough : How to access health information online Indication:Cough Cough : How to access health information online - Detail Indication:Cough Cough : Patient Instructions Indication:Cough Hyperlipidemia, mild : How t o access health information online Indication:Hyperlipidemia, mild Hyperlipidemia, mild : How t o access health information online - Detail Indication:Hyperlipidemia, mild Hyperlipidemia, mild : Patie nt Instructions Indication:Hyperlipidemia, mild BMI 34.0-34.9,adult : How to access health information online Indication:BMI 34.0-34.9,adult BMI 34.0-34.9,adult : How to access health information online - Detail Indication:BMI 34.0-34.9,adult BMI 34.0-34.9,adult : Patien t Instructions Indication:BMI 34.0-34.9,adult BMI 35.0-35.9,adult : How to access health information online Indication:BMI 35.0-35.9,adult BMI 35.0-35.9,adult : How to access health information online - Detail Indication:BMI 35.0-35.9,adult BMI 35.0-35.9,adult : Patien t Instructions Indication:BMI 35.0-35.9,adult Chronic asthma, unspecified asthma severity, uncomplicated : How to access health information online Indication:Chronic asthma, unspecified asthma severity, uncomplicated Chronic asthma, unspecified asthma severity, uncomplicated : How to access health information online - Detail Indication:Chronic asthma, unspecified asthma severity, uncomplicated Chronic asthma, unspecified asthma severity, uncomplicated : Patient Instructions Indication:Chronic asthma, unspecified asthma severity, uncomplicated Acute asthma flare : How to access health information online Indication:Acute asthma flare Acute asthma flare : How to access health information online - Detail Indication:Acute asthma flare Acute asthma flare : Patient Instructions Indication:Acute asthma flare Hypertension : How to access health information online Indication:Hypertension Hypertension : How to access health information online - Detail Indication:Hypertension Hypertension : Patient Instr uctions Indication:Hypertension Sore throat : How to access health information online Indication:Sore throat Sore throat : How to access health information online - Detail Indication:Sore throat Sore throat : Patient Instru ctions Indication:Sore throat Name Dates Details Non-smoker : How to access h ealth information online Indication:Non-smoker Non-smoker : How to access h ealth information online - Detail Indication:Non-smoker BMI 35.0-35.9,adult : Patien t Instructions Indication:BMI 35.0-35.9,adult Non-smoker : Patient Instruc tions Indication:Non-smoker Cough : How to access health information online Indication:Cough Cough : How to access health information online - Detail Indication:Cough Cough : Patient Instructions Indication:Cough Hyperlipidemia, mild : How t o access health information online Indication:Hyperlipidemia, mild Hyperlipidemia, mild : How t o access health information online - Detail Indication:Hyperlipidemia, mild Hyperlipidemia, mild : Patie nt Instructions Indication:Hyperlipidemia, mild BMI 34.0-34.9,adult : How to access health information online Indication:BMI 34.0-34.9,adult BMI 34.0-34.9,adult : How to access health information online - Detail Indication:BMI 34.0-34.9,adult BMI 34.0-34.9,adult : Patien t Instructions Indication:BMI 34.0-34.9,adult BMI 35.0-35.9,adult : How to access health information online Indication:BMI 35.0-35.9,adult BMI 35.0-35.9,adult : How to access health information online - Detail Indication:BMI 35.0-35.9,adult Chronic asthma, unspecified asthma severity, uncomplicated : How to access health information online Indication:Chronic asthma, unspecified asthma severity, uncomplicated Chronic asthma, unspecified asthma severity, uncomplicated : How to access health information online - Detail Indication:Chronic asthma, unspecified asthma severity, uncomplicated Chronic asthma, unspecified asthma severity, uncomplicated : Patient Instructions Indication:Chronic asthma, unspecified asthma severity, uncomplicated Acute asthma flare : How to access health information online Indication:Acute asthma flare Acute asthma flare : How to access health information online - Detail Indication:Acute asthma flare Acute asthma flare : Patient Instructions Indication:Acute asthma flare Hypertension : How to access health information online Indication:Hypertension Hypertension : How to access health information online - Detail Indication:Hypertension Hypertension : Patient Instr uctions Indication:Hypertension Sore throat : How to access health information online Indication:Sore throat Sore throat : How to access health information online - Detail Indication:Sore throat Sore throat : Patient Instru ctions Indication:Sore throat Name Dates Details How to access health informa tion online Indication:Non-smoker Start:21-Jun-2018 Instruction Type:Patient Education How to access health informa tion online - Detail Indication:Non-smoker Start:21-Jun-2018 Instruction Type:Patient Education Patient Instructions Indication:Non-smoker Start:21-Jun-2018 Instruction Type:Provider Instructions for Treatment How to access health informa tion online Indication:Non-smoker Start:10-May-2018 Instruction Type:Patient Education How to access health informa tion online - Detail Indication:Non-smoker Start:10-May-2018 Instruction Type:Patient Education Patient Instructions Indication:BMI 35.0-35.9,adult Start:10-May-2018 Instruction Type:Provider Instructions for Treatment How to access health informa tion online Indication:Non-smoker Start:14-Dec-2017 Instruction Type:Patient Education How to access health informa tion online - Detail Indication:Non-smoker Start:14-Dec-2017 Instruction Type:Patient Education Patient Instructions Indication:Non-smoker Start:14-Dec-2017 Instruction Type:Provider Instructions for Treatment How to access health informa tion online Indication:Cough Start:23-Jun-2017 Instruction Type:Patient Education How to access health informa tion online - Detail Indication:Cough Start:23-Jun-2017 Instruction Type:Patient Education Patient Instructions Indication:Cough Start:23-Jun-2017 Instruction Type:Provider Instructions for Treatment How to access health informa tion online Indication:Hyperlipidemia, mild Start:08-Jun-2017 Instruction Type:Patient Education How to access health informa tion online - Detail Indication:Hyperlipidemia, mild Start:08-Jun-2017 Instruction Type:Patient Education Patient Instructions Indication:Hyperlipidemia, mild Start:08-Jun-2017 Instruction Type:Provider Instructions for Treatment How to access health informa tion online Indication:Non-smoker Start:28-Apr-2017 Instruction Type:Patient Education How to access health informa tion online - Detail Indication:Non-smoker Start:28-Apr-2017 Instruction Type:Patient Education Patient Instructions Indication:Non-smoker Start:28-Apr-2017 Instruction Type:Provider Instructions for Treatment How to access health informa tion online Indication:BMI 34.0-34.9,adult Start:16-Apr-2017 Instruction Type:Patient Education How to access health informa tion online - Detail Indication:BMI 34.0-34.9,adult Start:16-Apr-2017 Instruction Type:Patient Education Patient Instructions Indication:BMI 34.0-34.9,adult Start:16-Apr-2017 Instruction Type:Provider Instructions for Treatment How to access health informa tion online Indication:Non-smoker Start:15-Jan-2017 Instruction Type:Patient Education How to access health informa tion online - Detail Indication:Non-smoker Start:15-Jan-2017 Instruction Type:Patient Education Patient Instructions Indication:Non-smoker Start:15-Jan-2017 Instruction Type:Provider Instructions for Treatment How to access health informa tion online Indication:BMI 35.0-35.9,adult Start:15-Dec-2016 Instruction Type:Patient Education How to access health informa tion online - Detail Indication:BMI 35.0-35.9,adult Start:15-Dec-2016 Instruction Type:Patient Education Patient Instructions Indication:BMI 35.0-35.9,adult Start:15-Dec-2016 Instruction Type:Provider Instructions for Treatment How to access health informa tion online Indication:Chronic asthma, unspecified asthma severity, uncomplicated Start:12-Sep-2016 Instruction Type:Patient Education How to access health informa tion online - Detail Indication:Chronic asthma, unspecified asthma severity, uncomplicated Start:12-Sep-2016 Instruction Type:Patient Education Patient Instructions Indication:Chronic asthma, unspecified asthma severity, uncomplicated Start:12-Sep-2016 Instruction Type:Provider Instructions for Treatment How to access health informa tion online Indication:Acute asthma flare Start:08-Sep-2016 Instruction Type:Patient Education How to access health informa tion online - Detail Indication:Acute asthma flare Start:08-Sep-2016 Instruction Type:Patient Education Patient Instructions Indication:Acute asthma flare Start:08-Sep-2016 Instruction Type:Provider Instructions for Treatment How to access health informa tion online Indication:Acute asthma flare Start:01-Sep-2016 Instruction Type:Patient Education How to access health informa tion online - Detail Indication:Acute asthma flare Start:01-Sep-2016 Instruction Type:Patient Education Patient Instructions Indication:Acute asthma flare Start:01-Sep-2016 Instruction Type:Provider Instructions for Treatment How to access health informa tion online Indication:Non-smoker Start:25-Aug-2016 Instruction Type:Patient Education How to access health informa tion online - Detail Indication:Non-smoker Start:25-Aug-2016 Instruction Type:Patient Education Patient Instructions Indication:Non-smoker Start:25-Aug-2016 Instruction Type:Provider Instructions for Treatment How to access health informa tion online Indication:BMI 34.0-34.9,adult Start:21-Jul-2016 Instruction Type:Patient Education How to access health informa tion online - Detail Indication:BMI 34.0-34.9,adult Start:21-Jul-2016 Instruction Type:Patient Education Patient Instructions Indication:BMI 34.0-34.9,adult Start:21-Jul-2016 Instruction Type:Provider Instructions for Treatment How to access health informa tion online Indication:Non-smoker Start:15-Apr-2016 Instruction Type:Patient Education How to access health informa tion online - Detail Indication:Non-smoker Start:15-Apr-2016 Instruction Type:Patient Education Patient Instructions Indication:Non-smoker Start:15-Apr-2016 Instruction Type:Provider Instructions for Treatment How to access health informa tion online Indication:Non-smoker Start:13-Mar-2016 Instruction Type:Patient Education How to access health informa tion online - Detail Indication:Non-smoker Start:13-Mar-2016 Instruction Type:Patient Education Patient Instructions Indication:Non-smoker Start:13-Mar-2016 Instruction Type:Provider Instructions for Treatment How to access health informa tion online Indication:Hypertension Start:07-Feb-2016 Instruction Type:Patient Education How to access health informa tion online - Detail Indication:Hypertension Start:07-Feb-2016 Instruction Type:Patient Education Patient Instructions Indication:Hypertension Start:07-Feb-2016 Instruction Type:Provider Instructions for Treatment How to access health informa tion online Indication:Sore throat Start:23-Jan-2016 Instruction Type:Patient Education How to access health informa tion online - Detail Indication:Sore throat Start:23-Jan-2016 Instruction Type:Patient Education Patient Instructions Indication:Sore throat Start:23-Jan-2016 Instruction Type:Provider Instructions for Treatment How to access health informa tion online Indication:Non-smoker Start:08-Jan-2016 Instruction Type:Patient Education How to access health informa tion online - Detail Indication:Non-smoker Start:08-Jan-2016 Instruction Type:Patient Education Patient Instructions Indication:Non-smoker Start:08-Jan-2016 Instruction Type:Provider Instructions for Treatment Name Dates Details How to access health informa tion online Indication:Non-smoker Start:21-Jun-2018 Instruction Type:Patient Education How to access health informa tion online - Detail Indication:Non-smoker Start:21-Jun-2018 Instruction Type:Patient Education Patient Instructions Indication:Non-smoker Start:21-Jun-2018 Instruction Type:Provider Instructions for Treatment How to access health informa tion online Indication:Non-smoker Start:10-May-2018 Instruction Type:Patient Education How to access health informa tion online - Detail Indication:Non-smoker Start:10-May-2018 Instruction Type:Patient Education Patient Instructions Indication:BMI 35.0-35.9,adult Start:10-May-2018 Instruction Type:Provider Instructions for Treatment How to access health informa tion online Indication:Non-smoker Start:14-Dec-2017 Instruction Type:Patient Education How to access health informa tion online - Detail Indication:Non-smoker Start:14-Dec-2017 Instruction Type:Patient Education Patient Instructions Indication:Non-smoker Start:14-Dec-2017 Instruction Type:Provider Instructions for Treatment How to access health informa tion online Indication:Cough Start:23-Jun-2017 Instruction Type:Patient Education How to access health informa tion online - Detail Indication:Cough Start:23-Jun-2017 Instruction Type:Patient Education Patient Instructions Indication:Cough Start:23-Jun-2017 Instruction Type:Provider Instructions for Treatment How to access health informa tion online Indication:Hyperlipidemia, mild Start:08-Jun-2017 Instruction Type:Patient Education How to access health informa tion online - Detail Indication:Hyperlipidemia, mild Start:08-Jun-2017 Instruction Type:Patient Education Patient Instructions Indication:Hyperlipidemia, mild Start:08-Jun-2017 Instruction Type:Provider Instructions for Treatment How to access health informa tion online Indication:Non-smoker Start:28-Apr-2017 Instruction Type:Patient Education How to access health informa tion online - Detail Indication:Non-smoker Start:28-Apr-2017 Instruction Type:Patient Education Patient Instructions Indication:Non-smoker Start:28-Apr-2017 Instruction Type:Provider Instructions for Treatment How to access health informa tion online Indication:BMI 34.0-34.9,adult Start:16-Apr-2017 Instruction Type:Patient Education How to access health informa tion online - Detail Indication:BMI 34.0-34.9,adult Start:16-Apr-2017 Instruction Type:Patient Education Patient Instructions Indication:BMI 34.0-34.9,adult Start:16-Apr-2017 Instruction Type:Provider Instructions for Treatment How to access health informa tion online Indication:Non-smoker Start:15-Jan-2017 Instruction Type:Patient Education How to access health informa tion online - Detail Indication:Non-smoker Start:15-Jan-2017 Instruction Type:Patient Education Patient Instructions Indication:Non-smoker Start:15-Jan-2017 Instruction Type:Provider Instructions for Treatment How to access health informa tion online Indication:BMI 35.0-35.9,adult Start:15-Dec-2016 Instruction Type:Patient Education How to access health informa tion online - Detail Indication:BMI 35.0-35.9,adult Start:15-Dec-2016 Instruction Type:Patient Education Patient Instructions Indication:BMI 35.0-35.9,adult Start:15-Dec-2016 Instruction Type:Provider Instructions for Treatment How to access health informa tion online Indication:Chronic asthma, unspecified asthma severity, uncomplicated Start:12-Sep-2016 Instruction Type:Patient Education How to access health informa tion online - Detail Indication:Chronic asthma, unspecified asthma severity, uncomplicated Start:12-Sep-2016 Instruction Type:Patient Education Patient Instructions Indication:Chronic asthma, unspecified asthma severity, uncomplicated Start:12-Sep-2016 Instruction Type:Provider Instructions for Treatment How to access health informa tion online Indication:Acute asthma flare Start:08-Sep-2016 Instruction Type:Patient Education How to access health informa tion online - Detail Indication:Acute asthma flare Start:08-Sep-2016 Instruction Type:Patient Education Patient Instructions Indication:Acute asthma flare Start:08-Sep-2016 Instruction Type:Provider Instructions for Treatment How to access health informa tion online Indication:Acute asthma flare Start:01-Sep-2016 Instruction Type:Patient Education How to access health informa tion online - Detail Indication:Acute asthma flare Start:01-Sep-2016 Instruction Type:Patient Education Patient Instructions Indication:Acute asthma flare Start:01-Sep-2016 Instruction Type:Provider Instructions for Treatment How to access health informa tion online Indication:Non-smoker Start:25-Aug-2016 Instruction Type:Patient Education How to access health informa tion online - Detail Indication:Non-smoker Start:25-Aug-2016 Instruction Type:Patient Education Patient Instructions Indication:Non-smoker Start:25-Aug-2016 Instruction Type:Provider Instructions for Treatment How to access health informa tion online Indication:BMI 34.0-34.9,adult Start:21-Jul-2016 Instruction Type:Patient Education How to access health informa tion online - Detail Indication:BMI 34.0-34.9,adult Start:21-Jul-2016 Instruction Type:Patient Education Patient Instructions Indication:BMI 34.0-34.9,adult Start:21-Jul-2016 Instruction Type:Provider Instructions for Treatment How to access health informa tion online Indication:Non-smoker Start:15-Apr-2016 Instruction Type:Patient Education How to access health informa tion online - Detail Indication:Non-smoker Start:15-Apr-2016 Instruction Type:Patient Education Patient Instructions Indication:Non-smoker Start:15-Apr-2016 Instruction Type:Provider Instructions for Treatment How to access health informa tion online Indication:Non-smoker Start:13-Mar-2016 Instruction Type:Patient Education How to access health informa tion online - Detail Indication:Non-smoker Start:13-Mar-2016 Instruction Type:Patient Education Patient Instructions Indication:Non-smoker Start:13-Mar-2016 Instruction Type:Provider Instructions for Treatment How to access health informa tion online Indication:Hypertension Start:07-Feb-2016 Instruction Type:Patient Education How to access health informa tion online - Detail Indication:Hypertension Start:07-Feb-2016 Instruction Type:Patient Education Patient Instructions Indication:Hypertension Start:07-Feb-2016 Instruction Type:Provider Instructions for Treatment How to access health informa tion online Indication:Sore throat Start:23-Jan-2016 Instruction Type:Patient Education How to access health informa tion online - Detail Indication:Sore throat Start:23-Jan-2016 Instruction Type:Patient Education Patient Instructions Indication:Sore throat Start:23-Jan-2016 Instruction Type:Provider Instructions for Treatment How to access health informa tion online Indication:Non-smoker Start:08-Jan-2016 Instruction Type:Patient Education How to access health informa tion online - Detail Indication:Non-smoker Start:08-Jan-2016 Instruction Type:Patient Education Patient Instructions Indication:Non-smoker Start:08-Jan-2016 Instruction Type:Provider Instructions for Treatment Name Dates Details How to access health informa tion online - Detail Indication:Bronchitis Start:27-Sep-2018 Instruction Type:Patient Education Patient Instructions Indication:BMI 36.0-36.9,adult Start:27-Sep-2018 Instruction Type:Provider Instructions for Treatment How to access health informa tion online Indication:Non-smoker Start:21-Jun-2018 Instruction Type:Patient Education How to access health informa tion online - Detail Indication:Non-smoker Start:21-Jun-2018 Instruction Type:Patient Education Patient Instructions Indication:Non-smoker Start:21-Jun-2018 Instruction Type:Provider Instructions for Treatment How to access health informa tion online Indication:Non-smoker Start:10-May-2018 Instruction Type:Patient Education How to access health informa tion online - Detail Indication:Non-smoker Start:10-May-2018 Instruction Type:Patient Education Patient Instructions Indication:BMI 35.0-35.9,adult Start:10-May-2018 Instruction Type:Provider Instructions for Treatment How to access health informa tion online Indication:Non-smoker Start:14-Dec-2017 Instruction Type:Patient Education How to access health informa tion online - Detail Indication:Non-smoker Start:14-Dec-2017 Instruction Type:Patient Education Patient Instructions Indication:Non-smoker Start:14-Dec-2017 Instruction Type:Provider Instructions for Treatment How to access health informa tion online Indication:Cough Start:23-Jun-2017 Instruction Type:Patient Education How to access health informa tion online - Detail Indication:Cough Start:23-Jun-2017 Instruction Type:Patient Education Patient Instructions Indication:Cough Start:23-Jun-2017 Instruction Type:Provider Instructions for Treatment How to access health informa tion online Indication:Hyperlipidemia, mild Start:08-Jun-2017 Instruction Type:Patient Education How to access health informa tion online - Detail Indication:Hyperlipidemia, mild Start:08-Jun-2017 Instruction Type:Patient Education Patient Instructions Indication:Hyperlipidemia, mild Start:08-Jun-2017 Instruction Type:Provider Instructions for Treatment How to access health informa tion online Indication:Non-smoker Start:28-Apr-2017 Instruction Type:Patient Education How to access health informa tion online - Detail Indication:Non-smoker Start:28-Apr-2017 Instruction Type:Patient Education Patient Instructions Indication:Non-smoker Start:28-Apr-2017 Instruction Type:Provider Instructions for Treatment How to access health informa tion online Indication:BMI 34.0-34.9,adult Start:16-Apr-2017 Instruction Type:Patient Education How to access health informa tion online - Detail Indication:BMI 34.0-34.9,adult Start:16-Apr-2017 Instruction Type:Patient Education Patient Instructions Indication:BMI 34.0-34.9,adult Start:16-Apr-2017 Instruction Type:Provider Instructions for Treatment How to access health informa tion online Indication:Non-smoker Start:15-Jan-2017 Instruction Type:Patient Education How to access health informa tion online - Detail Indication:Non-smoker Start:15-Jan-2017 Instruction Type:Patient Education Patient Instructions Indication:Non-smoker Start:15-Jan-2017 Instruction Type:Provider Instructions for Treatment How to access health informa tion online Indication:BMI 35.0-35.9,adult Start:15-Dec-2016 Instruction Type:Patient Education How to access health informa tion online - Detail Indication:BMI 35.0-35.9,adult Start:15-Dec-2016 Instruction Type:Patient Education Patient Instructions Indication:BMI 35.0-35.9,adult Start:15-Dec-2016 Instruction Type:Provider Instructions for Treatment How to access health informa tion online Indication:Chronic asthma, unspecified asthma severity, uncomplicated Start:12-Sep-2016 Instruction Type:Patient Education How to access health informa tion online - Detail Indication:Chronic asthma, unspecified asthma severity, uncomplicated Start:12-Sep-2016 Instruction Type:Patient Education Patient Instructions Indication:Chronic asthma, unspecified asthma severity, uncomplicated Start:12-Sep-2016 Instruction Type:Provider Instructions for Treatment How to access health informa tion online Indication:Acute asthma flare Start:08-Sep-2016 Instruction Type:Patient Education How to access health informa tion online - Detail Indication:Acute asthma flare Start:08-Sep-2016 Instruction Type:Patient Education Patient Instructions Indication:Acute asthma flare Start:08-Sep-2016 Instruction Type:Provider Instructions for Treatment How to access health informa tion online Indication:Acute asthma flare Start:01-Sep-2016 Instruction Type:Patient Education How to access health informa tion online - Detail Indication:Acute asthma flare Start:01-Sep-2016 Instruction Type:Patient Education Patient Instructions Indication:Acute asthma flare Start:01-Sep-2016 Instruction Type:Provider Instructions for Treatment How to access health informa tion online Indication:Non-smoker Start:25-Aug-2016 Instruction Type:Patient Education How to access health informa tion online - Detail Indication:Non-smoker Start:25-Aug-2016 Instruction Type:Patient Education Patient Instructions Indication:Non-smoker Start:25-Aug-2016 Instruction Type:Provider Instructions for Treatment How to access health informa tion online Indication:BMI 34.0-34.9,adult Start:21-Jul-2016 Instruction Type:Patient Education How to access health informa tion online - Detail Indication:BMI 34.0-34.9,adult Start:21-Jul-2016 Instruction Type:Patient Education Patient Instructions Indication:BMI 34.0-34.9,adult Start:21-Jul-2016 Instruction Type:Provider Instructions for Treatment How to access health informa tion online Indication:Non-smoker Start:15-Apr-2016 Instruction Type:Patient Education How to access health informa tion online - Detail Indication:Non-smoker Start:15-Apr-2016 Instruction Type:Patient Education Patient Instructions Indication:Non-smoker Start:15-Apr-2016 Instruction Type:Provider Instructions for Treatment How to access health informa tion online Indication:Non-smoker Start:13-Mar-2016 Instruction Type:Patient Education How to access health informa tion online - Detail Indication:Non-smoker Start:13-Mar-2016 Instruction Type:Patient Education Patient Instructions Indication:Non-smoker Start:13-Mar-2016 Instruction Type:Provider Instructions for Treatment How to access health informa tion online Indication:Hypertension Start:07-Feb-2016 Instruction Type:Patient Education How to access health informa tion online - Detail Indication:Hypertension Start:07-Feb-2016 Instruction Type:Patient Education Patient Instructions Indication:Hypertension Start:07-Feb-2016 Instruction Type:Provider Instructions for Treatment How to access health informa tion online Indication:Sore throat Start:23-Jan-2016 Instruction Type:Patient Education How to access health informa tion online - Detail Indication:Sore throat Start:23-Jan-2016 Instruction Type:Patient Education Patient Instructions Indication:Sore throat Start:23-Jan-2016 Instruction Type:Provider Instructions for Treatment How to access health informa tion online Indication:Non-smoker Start:08-Jan-2016 Instruction Type:Patient Education How to access health informa tion online - Detail Indication:Non-smoker Start:08-Jan-2016 Instruction Type:Patient Education Patient Instructions Indication:Non-smoker Start:08-Jan-2016 Instruction Type:Provider Instructions for Treatment Name Dates Details How to access health informa tion online Indication:Abnormal glucose tolerance test Start:25-Oct-2018 Instruction Type:Patient Education How to access health informa tion online - Detail Indication:Abnormal glucose tolerance test Start:25-Oct-2018 Instruction Type:Patient Education Patient Instructions Indication:Abnormal glucose tolerance test Start:25-Oct-2018 Instruction Type:Provider Instructions for Treatment How to access health informa tion online - Detail Indication:Bronchitis Start:27-Sep-2018 Instruction Type:Patient Education Patient Instructions Indication:BMI 36.0-36.9,adult Start:27-Sep-2018 Instruction Type:Provider Instructions for Treatment How to access health informa tion online Indication:Non-smoker Start:21-Jun-2018 Instruction Type:Patient Education How to access health informa tion online - Detail Indication:Non-smoker Start:21-Jun-2018 Instruction Type:Patient Education Patient Instructions Indication:Non-smoker Start:21-Jun-2018 Instruction Type:Provider Instructions for Treatment How to access health informa tion online Indication:Non-smoker Start:10-May-2018 Instruction Type:Patient Education How to access health informa tion online - Detail Indication:Non-smoker Start:10-May-2018 Instruction Type:Patient Education Patient Instructions Indication:BMI 35.0-35.9,adult Start:10-May-2018 Instruction Type:Provider Instructions for Treatment How to access health informa tion online Indication:Non-smoker Start:14-Dec-2017 Instruction Type:Patient Education How to access health informa tion online - Detail Indication:Non-smoker Start:14-Dec-2017 Instruction Type:Patient Education Patient Instructions Indication:Non-smoker Start:14-Dec-2017 Instruction Type:Provider Instructions for Treatment How to access health informa tion online Indication:Cough Start:23-Jun-2017 Instruction Type:Patient Education How to access health informa tion online - Detail Indication:Cough Start:23-Jun-2017 Instruction Type:Patient Education Patient Instructions Indication:Cough Start:23-Jun-2017 Instruction Type:Provider Instructions for Treatment How to access health informa tion online Indication:Hyperlipidemia, mild Start:08-Jun-2017 Instruction Type:Patient Education How to access health informa tion online - Detail Indication:Hyperlipidemia, mild Start:08-Jun-2017 Instruction Type:Patient Education Patient Instructions Indication:Hyperlipidemia, mild Start:08-Jun-2017 Instruction Type:Provider Instructions for Treatment How to access health informa tion online Indication:Non-smoker Start:28-Apr-2017 Instruction Type:Patient Education How to access health informa tion online - Detail Indication:Non-smoker Start:28-Apr-2017 Instruction Type:Patient Education Patient Instructions Indication:Non-smoker Start:28-Apr-2017 Instruction Type:Provider Instructions for Treatment How to access health informa tion online Indication:BMI 34.0-34.9,adult Start:16-Apr-2017 Instruction Type:Patient Education How to access health informa tion online - Detail Indication:BMI 34.0-34.9,adult Start:16-Apr-2017 Instruction Type:Patient Education Patient Instructions Indication:BMI 34.0-34.9,adult Start:16-Apr-2017 Instruction Type:Provider Instructions for Treatment How to access health informa tion online Indication:Non-smoker Start:15-Jan-2017 Instruction Type:Patient Education How to access health informa tion online - Detail Indication:Non-smoker Start:15-Jan-2017 Instruction Type:Patient Education Patient Instructions Indication:Non-smoker Start:15-Jan-2017 Instruction Type:Provider Instructions for Treatment How to access health informa tion online Indication:BMI 35.0-35.9,adult Start:15-Dec-2016 Instruction Type:Patient Education How to access health informa tion online - Detail Indication:BMI 35.0-35.9,adult Start:15-Dec-2016 Instruction Type:Patient Education Patient Instructions Indication:BMI 35.0-35.9,adult Start:15-Dec-2016 Instruction Type:Provider Instructions for Treatment How to access health informa tion online Indication:Chronic asthma, unspecified asthma severity, uncomplicated Start:12-Sep-2016 Instruction Type:Patient Education How to access health informa tion online - Detail Indication:Chronic asthma, unspecified asthma severity, uncomplicated Start:12-Sep-2016 Instruction Type:Patient Education Patient Instructions Indication:Chronic asthma, unspecified asthma severity, uncomplicated Start:12-Sep-2016 Instruction Type:Provider Instructions for Treatment How to access health informa tion online Indication:Acute asthma flare Start:08-Sep-2016 Instruction Type:Patient Education How to access health informa tion online - Detail Indication:Acute asthma flare Start:08-Sep-2016 Instruction Type:Patient Education Patient Instructions Indication:Acute asthma flare Start:08-Sep-2016 Instruction Type:Provider Instructions for Treatment How to access health informa tion online Indication:Acute asthma flare Start:01-Sep-2016 Instruction Type:Patient Education How to access health informa tion online - Detail Indication:Acute asthma flare Start:01-Sep-2016 Instruction Type:Patient Education Patient Instructions Indication:Acute asthma flare Start:01-Sep-2016 Instruction Type:Provider Instructions for Treatment How to access health informa tion online Indication:Non-smoker Start:25-Aug-2016 Instruction Type:Patient Education How to access health informa tion online - Detail Indication:Non-smoker Start:25-Aug-2016 Instruction Type:Patient Education Patient Instructions Indication:Non-smoker Start:25-Aug-2016 Instruction Type:Provider Instructions for Treatment How to access health informa tion online Indication:BMI 34.0-34.9,adult Start:21-Jul-2016 Instruction Type:Patient Education How to access health informa tion online - Detail Indication:BMI 34.0-34.9,adult Start:21-Jul-2016 Instruction Type:Patient Education Patient Instructions Indication:BMI 34.0-34.9,adult Start:21-Jul-2016 Instruction Type:Provider Instructions for Treatment How to access health informa tion online Indication:Non-smoker Start:15-Apr-2016 Instruction Type:Patient Education How to access health informa tion online - Detail Indication:Non-smoker Start:15-Apr-2016 Instruction Type:Patient Education Patient Instructions Indication:Non-smoker Start:15-Apr-2016 Instruction Type:Provider Instructions for Treatment How to access health informa tion online Indication:Non-smoker Start:13-Mar-2016 Instruction Type:Patient Education How to access health informa tion online - Detail Indication:Non-smoker Start:13-Mar-2016 Instruction Type:Patient Education Patient Instructions Indication:Non-smoker Start:13-Mar-2016 Instruction Type:Provider Instructions for Treatment How to access health informa tion online Indication:Hypertension Start:07-Feb-2016 Instruction Type:Patient Education How to access health informa tion online - Detail Indication:Hypertension Start:07-Feb-2016 Instruction Type:Patient Education Patient Instructions Indication:Hypertension Start:07-Feb-2016 Instruction Type:Provider Instructions for Treatment How to access health informa tion online Indication:Sore throat Start:23-Jan-2016 Instruction Type:Patient Education How to access health informa tion online - Detail Indication:Sore throat Start:23-Jan-2016 Instruction Type:Patient Education Patient Instructions Indication:Sore throat Start:23-Jan-2016 Instruction Type:Provider Instructions for Treatment How to access health informa tion online Indication:Non-smoker Start:08-Jan-2016 Instruction Type:Patient Education How to access health informa tion online - Detail Indication:Non-smoker Start:08-Jan-2016 Instruction Type:Patient Education Patient Instructions Indication:Non-smoker Start:08-Jan-2016 Instruction Type:Provider Instructions for Treatment Name Dates Details How to access health informa tion online Indication:Abnormal glucose tolerance test Start:25-Oct-2018 Instruction Type:Patient Education How to access health informa tion online - Detail Indication:Abnormal glucose tolerance test Start:25-Oct-2018 Instruction Type:Patient Education Patient Instructions Indication:Abnormal glucose tolerance test Start:25-Oct-2018 Instruction Type:Provider Instructions for Treatment How to access health informa tion online - Detail Indication:Bronchitis Start:27-Sep-2018 Instruction Type:Patient Education Patient Instructions Indication:BMI 36.0-36.9,adult Start:27-Sep-2018 Instruction Type:Provider Instructions for Treatment How to access health informa tion online Indication:Non-smoker Start:21-Jun-2018 Instruction Type:Patient Education How to access health informa tion online - Detail Indication:Non-smoker Start:21-Jun-2018 Instruction Type:Patient Education Patient Instructions Indication:Non-smoker Start:21-Jun-2018 Instruction Type:Provider Instructions for Treatment How to access health informa tion online Indication:Non-smoker Start:10-May-2018 Instruction Type:Patient Education How to access health informa tion online - Detail Indication:Non-smoker Start:10-May-2018 Instruction Type:Patient Education Patient Instructions Indication:BMI 35.0-35.9,adult Start:10-May-2018 Instruction Type:Provider Instructions for Treatment How to access health informa tion online Indication:Non-smoker Start:14-Dec-2017 Instruction Type:Patient Education How to access health informa tion online - Detail Indication:Non-smoker Start:14-Dec-2017 Instruction Type:Patient Education Patient Instructions Indication:Non-smoker Start:14-Dec-2017 Instruction Type:Provider Instructions for Treatment How to access health informa tion online Indication:Cough Start:23-Jun-2017 Instruction Type:Patient Education How to access health informa tion online - Detail Indication:Cough Start:23-Jun-2017 Instruction Type:Patient Education Patient Instructions Indication:Cough Start:23-Jun-2017 Instruction Type:Provider Instructions for Treatment How to access health informa tion online Indication:Hyperlipidemia, mild Start:08-Jun-2017 Instruction Type:Patient Education How to access health informa tion online - Detail Indication:Hyperlipidemia, mild Start:08-Jun-2017 Instruction Type:Patient Education Patient Instructions Indication:Hyperlipidemia, mild Start:08-Jun-2017 Instruction Type:Provider Instructions for Treatment How to access health informa tion online Indication:Non-smoker Start:28-Apr-2017 Instruction Type:Patient Education How to access health informa tion online - Detail Indication:Non-smoker Start:28-Apr-2017 Instruction Type:Patient Education Patient Instructions Indication:Non-smoker Start:28-Apr-2017 Instruction Type:Provider Instructions for Treatment How to access health informa tion online Indication:BMI 34.0-34.9,adult Start:16-Apr-2017 Instruction Type:Patient Education How to access health informa tion online - Detail Indication:BMI 34.0-34.9,adult Start:16-Apr-2017 Instruction Type:Patient Education Patient Instructions Indication:BMI 34.0-34.9,adult Start:16-Apr-2017 Instruction Type:Provider Instructions for Treatment How to access health informa tion online Indication:Non-smoker Start:15-Jan-2017 Instruction Type:Patient Education How to access health informa tion online - Detail Indication:Non-smoker Start:15-Jan-2017 Instruction Type:Patient Education Patient Instructions Indication:Non-smoker Start:15-Jan-2017 Instruction Type:Provider Instructions for Treatment How to access health informa tion online Indication:BMI 35.0-35.9,adult Start:15-Dec-2016 Instruction Type:Patient Education How to access health informa tion online - Detail Indication:BMI 35.0-35.9,adult Start:15-Dec-2016 Instruction Type:Patient Education Patient Instructions Indication:BMI 35.0-35.9,adult Start:15-Dec-2016 Instruction Type:Provider Instructions for Treatment How to access health informa tion online Indication:Chronic asthma, unspecified asthma severity, uncomplicated Start:12-Sep-2016 Instruction Type:Patient Education How to access health informa tion online - Detail Indication:Chronic asthma, unspecified asthma severity, uncomplicated Start:12-Sep-2016 Instruction Type:Patient Education Patient Instructions Indication:Chronic asthma, unspecified asthma severity, uncomplicated Start:12-Sep-2016 Instruction Type:Provider Instructions for Treatment How to access health informa tion online Indication:Acute asthma flare Start:08-Sep-2016 Instruction Type:Patient Education How to access health informa tion online - Detail Indication:Acute asthma flare Start:08-Sep-2016 Instruction Type:Patient Education Patient Instructions Indication:Acute asthma flare Start:08-Sep-2016 Instruction Type:Provider Instructions for Treatment How to access health informa tion online Indication:Acute asthma flare Start:01-Sep-2016 Instruction Type:Patient Education How to access health informa tion online - Detail Indication:Acute asthma flare Start:01-Sep-2016 Instruction Type:Patient Education Patient Instructions Indication:Acute asthma flare Start:01-Sep-2016 Instruction Type:Provider Instructions for Treatment How to access health informa tion online Indication:Non-smoker Start:25-Aug-2016 Instruction Type:Patient Education How to access health informa tion online - Detail Indication:Non-smoker Start:25-Aug-2016 Instruction Type:Patient Education Patient Instructions Indication:Non-smoker Start:25-Aug-2016 Instruction Type:Provider Instructions for Treatment How to access health informa tion online Indication:BMI 34.0-34.9,adult Start:21-Jul-2016 Instruction Type:Patient Education How to access health informa tion online - Detail Indication:BMI 34.0-34.9,adult Start:21-Jul-2016 Instruction Type:Patient Education Patient Instructions Indication:BMI 34.0-34.9,adult Start:21-Jul-2016 Instruction Type:Provider Instructions for Treatment How to access health informa tion online Indication:Non-smoker Start:15-Apr-2016 Instruction Type:Patient Education How to access health informa tion online - Detail Indication:Non-smoker Start:15-Apr-2016 Instruction Type:Patient Education Patient Instructions Indication:Non-smoker Start:15-Apr-2016 Instruction Type:Provider Instructions for Treatment How to access health informa tion online Indication:Non-smoker Start:13-Mar-2016 Instruction Type:Patient Education How to access health informa tion online - Detail Indication:Non-smoker Start:13-Mar-2016 Instruction Type:Patient Education Patient Instructions Indication:Non-smoker Start:13-Mar-2016 Instruction Type:Provider Instructions for Treatment How to access health informa tion online Indication:Hypertension Start:07-Feb-2016 Instruction Type:Patient Education How to access health informa tion online - Detail Indication:Hypertension Start:07-Feb-2016 Instruction Type:Patient Education Patient Instructions Indication:Hypertension Start:07-Feb-2016 Instruction Type:Provider Instructions for Treatment How to access health informa tion online Indication:Sore throat Start:23-Jan-2016 Instruction Type:Patient Education How to access health informa tion online - Detail Indication:Sore throat Start:23-Jan-2016 Instruction Type:Patient Education Patient Instructions Indication:Sore throat Start:23-Jan-2016 Instruction Type:Provider Instructions for Treatment How to access health informa tion online Indication:Non-smoker Start:08-Jan-2016 Instruction Type:Patient Education How to access health informa tion online - Detail Indication:Non-smoker Start:08-Jan-2016 Instruction Type:Patient Education Patient Instructions Indication:Non-smoker Start:08-Jan-2016 Instruction Type:Provider Instructions for Treatment Name Dates Details How to access health informa tion online Indication:Non-smoker Start:08-Jul-2019 Instruction Type:Patient Education How to access health informa tion online - Detail Indication:Non-smoker Start:08-Jul-2019 Instruction Type:Patient Education Patient Instructions Indication:Non-smoker Start:08-Jul-2019 Instruction Type:Provider Instructions for Treatment How to access health informa tion online Indication:Non-smoker Start:28-Apr-2019 Instruction Type:Patient Education How to access health informa tion online - Detail Indication:Non-smoker Start:28-Apr-2019 Instruction Type:Patient Education Patient Instructions Indication:Non-smoker Start:28-Apr-2019 Instruction Type:Provider Instructions for Treatment How to access health informa tion online Indication:Abnormal glucose tolerance test Start:10-Mar-2019 Instruction Type:Patient Education How to access health informa tion online - Detail Indication:Abnormal glucose tolerance test Start:10-Mar-2019 Instruction Type:Patient Education Patient Instructions Indication:Abnormal glucose tolerance test Start:10-Mar-2019 Instruction Type:Provider Instructions for Treatment How to access health informa tion online Indication:Abnormal glucose tolerance test Start:25-Oct-2018 Instruction Type:Patient Education How to access health informa tion online - Detail Indication:Abnormal glucose tolerance test Start:25-Oct-2018 Instruction Type:Patient Education Patient Instructions Indication:Abnormal glucose tolerance test Start:25-Oct-2018 Instruction Type:Provider Instructions for Treatment How to access health informa tion online - Detail Indication:Bronchitis Start:27-Sep-2018 Instruction Type:Patient Education Patient Instructions Indication:BMI 36.0-36.9,adult Start:27-Sep-2018 Instruction Type:Provider Instructions for Treatment How to access health informa tion online Indication:Non-smoker Start:21-Jun-2018 Instruction Type:Patient Education How to access health informa tion online - Detail Indication:Non-smoker Start:21-Jun-2018 Instruction Type:Patient Education Patient Instructions Indication:Non-smoker Start:21-Jun-2018 Instruction Type:Provider Instructions for Treatment How to access health informa tion online Indication:Non-smoker Start:10-May-2018 Instruction Type:Patient Education How to access health informa tion online - Detail Indication:Non-smoker Start:10-May-2018 Instruction Type:Patient Education Patient Instructions Indication:BMI 35.0-35.9,adult Start:10-May-2018 Instruction Type:Provider Instructions for Treatment How to access health informa tion online Indication:Non-smoker Start:14-Dec-2017 Instruction Type:Patient Education How to access health informa tion online - Detail Indication:Non-smoker Start:14-Dec-2017 Instruction Type:Patient Education Patient Instructions Indication:Non-smoker Start:14-Dec-2017 Instruction Type:Provider Instructions for Treatment How to access health informa tion online Indication:Cough Start:23-Jun-2017 Instruction Type:Patient Education How to access health informa tion online - Detail Indication:Cough Start:23-Jun-2017 Instruction Type:Patient Education Patient Instructions Indication:Cough Start:23-Jun-2017 Instruction Type:Provider Instructions for Treatment How to access health informa tion online Indication:Hyperlipidemia, mild Start:08-Jun-2017 Instruction Type:Patient Education How to access health informa tion online - Detail Indication:Hyperlipidemia, mild Start:08-Jun-2017 Instruction Type:Patient Education Patient Instructions Indication:Hyperlipidemia, mild Start:08-Jun-2017 Instruction Type:Provider Instructions for Treatment How to access health informa tion online Indication:Non-smoker Start:28-Apr-2017 Instruction Type:Patient Education How to access health informa tion online - Detail Indication:Non-smoker Start:28-Apr-2017 Instruction Type:Patient Education Patient Instructions Indication:Non-smoker Start:28-Apr-2017 Instruction Type:Provider Instructions for Treatment How to access health informa tion online Indication:BMI 34.0-34.9,adult Start:16-Apr-2017 Instruction Type:Patient Education How to access health informa tion online - Detail Indication:BMI 34.0-34.9,adult Start:16-Apr-2017 Instruction Type:Patient Education Patient Instructions Indication:BMI 34.0-34.9,adult Start:16-Apr-2017 Instruction Type:Provider Instructions for Treatment How to access health informa tion online Indication:Non-smoker Start:15-Jan-2017 Instruction Type:Patient Education How to access health informa tion online - Detail Indication:Non-smoker Start:15-Jan-2017 Instruction Type:Patient Education Patient Instructions Indication:Non-smoker Start:15-Jan-2017 Instruction Type:Provider Instructions for Treatment How to access health informa tion online Indication:BMI 35.0-35.9,adult Start:15-Dec-2016 Instruction Type:Patient Education How to access health informa tion online - Detail Indication:BMI 35.0-35.9,adult Start:15-Dec-2016 Instruction Type:Patient Education Patient Instructions Indication:BMI 35.0-35.9,adult Start:15-Dec-2016 Instruction Type:Provider Instructions for Treatment How to access health informa tion online Indication:Chronic asthma, unspecified asthma severity, uncomplicated Start:12-Sep-2016 Instruction Type:Patient Education How to access health informa tion online - Detail Indication:Chronic asthma, unspecified asthma severity, uncomplicated Start:12-Sep-2016 Instruction Type:Patient Education Patient Instructions Indication:Chronic asthma, unspecified asthma severity, uncomplicated Start:12-Sep-2016 Instruction Type:Provider Instructions for Treatment How to access health informa tion online Indication:Acute asthma flare Start:08-Sep-2016 Instruction Type:Patient Education How to access health informa tion online - Detail Indication:Acute asthma flare Start:08-Sep-2016 Instruction Type:Patient Education Patient Instructions Indication:Acute asthma flare Start:08-Sep-2016 Instruction Type:Provider Instructions for Treatment How to access health informa tion online Indication:Acute asthma flare Start:01-Sep-2016 Instruction Type:Patient Education How to access health informa tion online - Detail Indication:Acute asthma flare Start:01-Sep-2016 Instruction Type:Patient Education Patient Instructions Indication:Acute asthma flare Start:01-Sep-2016 Instruction Type:Provider Instructions for Treatment How to access health informa tion online Indication:Non-smoker Start:25-Aug-2016 Instruction Type:Patient Education How to access health informa tion online - Detail Indication:Non-smoker Start:25-Aug-2016 Instruction Type:Patient Education Patient Instructions Indication:Non-smoker Start:25-Aug-2016 Instruction Type:Provider Instructions for Treatment How to access health informa tion online Indication:BMI 34.0-34.9,adult Start:21-Jul-2016 Instruction Type:Patient Education How to access health informa tion online - Detail Indication:BMI 34.0-34.9,adult Start:21-Jul-2016 Instruction Type:Patient Education Patient Instructions Indication:BMI 34.0-34.9,adult Start:21-Jul-2016 Instruction Type:Provider Instructions for Treatment How to access health informa tion online Indication:Non-smoker Start:15-Apr-2016 Instruction Type:Patient Education How to access health informa tion online - Detail Indication:Non-smoker Start:15-Apr-2016 Instruction Type:Patient Education Patient Instructions Indication:Non-smoker Start:15-Apr-2016 Instruction Type:Provider Instructions for Treatment How to access health informa tion online Indication:Non-smoker Start:13-Mar-2016 Instruction Type:Patient Education How to access health informa tion online - Detail Indication:Non-smoker Start:13-Mar-2016 Instruction Type:Patient Education Patient Instructions Indication:Non-smoker Start:13-Mar-2016 Instruction Type:Provider Instructions for Treatment How to access health informa tion online Indication:Hypertension Start:07-Feb-2016 Instruction Type:Patient Education How to access health informa tion online - Detail Indication:Hypertension Start:07-Feb-2016 Instruction Type:Patient Education Patient Instructions Indication:Hypertension Start:07-Feb-2016 Instruction Type:Provider Instructions for Treatment How to access health informa tion online Indication:Sore throat Start:23-Jan-2016 Instruction Type:Patient Education How to access health informa tion online - Detail Indication:Sore throat Start:23-Jan-2016 Instruction Type:Patient Education Patient Instructions Indication:Sore throat Start:23-Jan-2016 Instruction Type:Provider Instructions for Treatment How to access health informa tion online Indication:Non-smoker Start:08-Jan-2016 Instruction Type:Patient Education How to access health informa tion online - Detail Indication:Non-smoker Start:08-Jan-2016 Instruction Type:Patient Education Patient Instructions Indication:Non-smoker Start:08-Jan-2016 Instruction Type:Provider Instructions for Treatment Name Dates Details How to access health informa tion online Indication:Non-smoker Start:08-Jul-2019 Instruction Type:Patient Education How to access health informa tion online - Detail Indication:Non-smoker Start:08-Jul-2019 Instruction Type:Patient Education Patient Instructions Indication:Non-smoker Start:08-Jul-2019 Instruction Type:Provider Instructions for Treatment How to access health informa tion online Indication:Non-smoker Start:28-Apr-2019 Instruction Type:Patient Education How to access health informa tion online - Detail Indication:Non-smoker Start:28-Apr-2019 Instruction Type:Patient Education Patient Instructions Indication:Non-smoker Start:28-Apr-2019 Instruction Type:Provider Instructions for Treatment How to access health informa tion online Indication:Abnormal glucose tolerance test Start:10-Mar-2019 Instruction Type:Patient Education How to access health informa tion online - Detail Indication:Abnormal glucose tolerance test Start:10-Mar-2019 Instruction Type:Patient Education Patient Instructions Indication:Abnormal glucose tolerance test Start:10-Mar-2019 Instruction Type:Provider Instructions for Treatment How to access health informa tion online Indication:Abnormal glucose tolerance test Start:25-Oct-2018 Instruction Type:Patient Education How to access health informa tion online - Detail Indication:Abnormal glucose tolerance test Start:25-Oct-2018 Instruction Type:Patient Education Patient Instructions Indication:Abnormal glucose tolerance test Start:25-Oct-2018 Instruction Type:Provider Instructions for Treatment How to access health informa tion online - Detail Indication:Bronchitis Start:27-Sep-2018 Instruction Type:Patient Education Patient Instructions Indication:BMI 36.0-36.9,adult Start:27-Sep-2018 Instruction Type:Provider Instructions for Treatment How to access health informa tion online Indication:Non-smoker Start:21-Jun-2018 Instruction Type:Patient Education How to access health informa tion online - Detail Indication:Non-smoker Start:21-Jun-2018 Instruction Type:Patient Education Patient Instructions Indication:Non-smoker Start:21-Jun-2018 Instruction Type:Provider Instructions for Treatment How to access health informa tion online Indication:Non-smoker Start:10-May-2018 Instruction Type:Patient Education How to access health informa tion online - Detail Indication:Non-smoker Start:10-May-2018 Instruction Type:Patient Education Patient Instructions Indication:BMI 35.0-35.9,adult Start:10-May-2018 Instruction Type:Provider Instructions for Treatment How to access health informa tion online Indication:Non-smoker Start:14-Dec-2017 Instruction Type:Patient Education How to access health informa tion online - Detail Indication:Non-smoker Start:14-Dec-2017 Instruction Type:Patient Education Patient Instructions Indication:Non-smoker Start:14-Dec-2017 Instruction Type:Provider Instructions for Treatment How to access health informa tion online Indication:Cough Start:23-Jun-2017 Instruction Type:Patient Education How to access health informa tion online - Detail Indication:Cough Start:23-Jun-2017 Instruction Type:Patient Education Patient Instructions Indication:Cough Start:23-Jun-2017 Instruction Type:Provider Instructions for Treatment How to access health informa tion online Indication:Hyperlipidemia, mild Start:08-Jun-2017 Instruction Type:Patient Education How to access health informa tion online - Detail Indication:Hyperlipidemia, mild Start:08-Jun-2017 Instruction Type:Patient Education Patient Instructions Indication:Hyperlipidemia, mild Start:08-Jun-2017 Instruction Type:Provider Instructions for Treatment How to access health informa tion online Indication:Non-smoker Start:28-Apr-2017 Instruction Type:Patient Education How to access health informa tion online - Detail Indication:Non-smoker Start:28-Apr-2017 Instruction Type:Patient Education Patient Instructions Indication:Non-smoker Start:28-Apr-2017 Instruction Type:Provider Instructions for Treatment How to access health informa tion online Indication:BMI 34.0-34.9,adult Start:16-Apr-2017 Instruction Type:Patient Education How to access health informa tion online - Detail Indication:BMI 34.0-34.9,adult Start:16-Apr-2017 Instruction Type:Patient Education Patient Instructions Indication:BMI 34.0-34.9,adult Start:16-Apr-2017 Instruction Type:Provider Instructions for Treatment How to access health informa tion online Indication:Non-smoker Start:15-Jan-2017 Instruction Type:Patient Education How to access health informa tion online - Detail Indication:Non-smoker Start:15-Jan-2017 Instruction Type:Patient Education Patient Instructions Indication:Non-smoker Start:15-Jan-2017 Instruction Type:Provider Instructions for Treatment How to access health informa tion online Indication:BMI 35.0-35.9,adult Start:15-Dec-2016 Instruction Type:Patient Education How to access health informa tion online - Detail Indication:BMI 35.0-35.9,adult Start:15-Dec-2016 Instruction Type:Patient Education Patient Instructions Indication:BMI 35.0-35.9,adult Start:15-Dec-2016 Instruction Type:Provider Instructions for Treatment How to access health informa tion online Indication:Chronic asthma, unspecified asthma severity, uncomplicated Start:12-Sep-2016 Instruction Type:Patient Education How to access health informa tion online - Detail Indication:Chronic asthma, unspecified asthma severity, uncomplicated Start:12-Sep-2016 Instruction Type:Patient Education Patient Instructions Indication:Chronic asthma, unspecified asthma severity, uncomplicated Start:12-Sep-2016 Instruction Type:Provider Instructions for Treatment How to access health informa tion online Indication:Acute asthma flare Start:08-Sep-2016 Instruction Type:Patient Education How to access health informa tion online - Detail Indication:Acute asthma flare Start:08-Sep-2016 Instruction Type:Patient Education Patient Instructions Indication:Acute asthma flare Start:08-Sep-2016 Instruction Type:Provider Instructions for Treatment How to access health informa tion online Indication:Acute asthma flare Start:01-Sep-2016 Instruction Type:Patient Education How to access health informa tion online - Detail Indication:Acute asthma flare Start:01-Sep-2016 Instruction Type:Patient Education Patient Instructions Indication:Acute asthma flare Start:01-Sep-2016 Instruction Type:Provider Instructions for Treatment How to access health informa tion online Indication:Non-smoker Start:25-Aug-2016 Instruction Type:Patient Education How to access health informa tion online - Detail Indication:Non-smoker Start:25-Aug-2016 Instruction Type:Patient Education Patient Instructions Indication:Non-smoker Start:25-Aug-2016 Instruction Type:Provider Instructions for Treatment How to access health informa tion online Indication:BMI 34.0-34.9,adult Start:21-Jul-2016 Instruction Type:Patient Education How to access health informa tion online - Detail Indication:BMI 34.0-34.9,adult Start:21-Jul-2016 Instruction Type:Patient Education Patient Instructions Indication:BMI 34.0-34.9,adult Start:21-Jul-2016 Instruction Type:Provider Instructions for Treatment How to access health informa tion online Indication:Non-smoker Start:15-Apr-2016 Instruction Type:Patient Education How to access health informa tion online - Detail Indication:Non-smoker Start:15-Apr-2016 Instruction Type:Patient Education Patient Instructions Indication:Non-smoker Start:15-Apr-2016 Instruction Type:Provider Instructions for Treatment How to access health informa tion online Indication:Non-smoker Start:13-Mar-2016 Instruction Type:Patient Education How to access health informa tion online - Detail Indication:Non-smoker Start:13-Mar-2016 Instruction Type:Patient Education Patient Instructions Indication:Non-smoker Start:13-Mar-2016 Instruction Type:Provider Instructions for Treatment How to access health informa tion online Indication:Hypertension Start:07-Feb-2016 Instruction Type:Patient Education How to access health informa tion online - Detail Indication:Hypertension Start:07-Feb-2016 Instruction Type:Patient Education Patient Instructions Indication:Hypertension Start:07-Feb-2016 Instruction Type:Provider Instructions for Treatment How to access health informa tion online Indication:Sore throat Start:23-Jan-2016 Instruction Type:Patient Education How to access health informa tion online - Detail Indication:Sore throat Start:23-Jan-2016 Instruction Type:Patient Education Patient Instructions Indication:Sore throat Start:23-Jan-2016 Instruction Type:Provider Instructions for Treatment How to access health informa tion online Indication:Non-smoker Start:08-Jan-2016 Instruction Type:Patient Education How to access health informa tion online - Detail Indication:Non-smoker Start:08-Jan-2016 Instruction Type:Patient Education Patient Instructions Indication:Non-smoker Start:08-Jan-2016 Instruction Type:Provider Instructions for Treatment Name Dates Details How to access health informa tion online Indication:Non-smoker Start:08-Jul-2019 Instruction Type:Patient Education How to access health informa tion online - Detail Indication:Non-smoker Start:08-Jul-2019 Instruction Type:Patient Education Patient Instructions Indication:Non-smoker Start:08-Jul-2019 Instruction Type:Provider Instructions for Treatment How to access health informa tion online Indication:Non-smoker Start:28-Apr-2019 Instruction Type:Patient Education How to access health informa tion online - Detail Indication:Non-smoker Start:28-Apr-2019 Instruction Type:Patient Education Patient Instructions Indication:Non-smoker Start:28-Apr-2019 Instruction Type:Provider Instructions for Treatment How to access health informa tion online Indication:Abnormal glucose tolerance test Start:10-Mar-2019 Instruction Type:Patient Education How to access health informa tion online - Detail Indication:Abnormal glucose tolerance test Start:10-Mar-2019 Instruction Type:Patient Education Patient Instructions Indication:Abnormal glucose tolerance test Start:10-Mar-2019 Instruction Type:Provider Instructions for Treatment How to access health informa tion online Indication:Abnormal glucose tolerance test Start:25-Oct-2018 Instruction Type:Patient Education How to access health informa tion online - Detail Indication:Abnormal glucose tolerance test Start:25-Oct-2018 Instruction Type:Patient Education Patient Instructions Indication:Abnormal glucose tolerance test Start:25-Oct-2018 Instruction Type:Provider Instructions for Treatment How to access health informa tion online - Detail Indication:Bronchitis Start:27-Sep-2018 Instruction Type:Patient Education Patient Instructions Indication:BMI 36.0-36.9,adult Start:27-Sep-2018 Instruction Type:Provider Instructions for Treatment How to access health informa tion online Indication:Non-smoker Start:21-Jun-2018 Instruction Type:Patient Education How to access health informa tion online - Detail Indication:Non-smoker Start:21-Jun-2018 Instruction Type:Patient Education Patient Instructions Indication:Non-smoker Start:21-Jun-2018 Instruction Type:Provider Instructions for Treatment How to access health informa tion online Indication:Non-smoker Start:10-May-2018 Instruction Type:Patient Education How to access health informa tion online - Detail Indication:Non-smoker Start:10-May-2018 Instruction Type:Patient Education Patient Instructions Indication:BMI 35.0-35.9,adult Start:10-May-2018 Instruction Type:Provider Instructions for Treatment How to access health informa tion online Indication:Non-smoker Start:14-Dec-2017 Instruction Type:Patient Education How to access health informa tion online - Detail Indication:Non-smoker Start:14-Dec-2017 Instruction Type:Patient Education Patient Instructions Indication:Non-smoker Start:14-Dec-2017 Instruction Type:Provider Instructions for Treatment How to access health informa tion online Indication:Cough Start:23-Jun-2017 Instruction Type:Patient Education How to access health informa tion online - Detail Indication:Cough Start:23-Jun-2017 Instruction Type:Patient Education Patient Instructions Indication:Cough Start:23-Jun-2017 Instruction Type:Provider Instructions for Treatment How to access health informa tion online Indication:Hyperlipidemia, mild Start:08-Jun-2017 Instruction Type:Patient Education How to access health informa tion online - Detail Indication:Hyperlipidemia, mild Start:08-Jun-2017 Instruction Type:Patient Education Patient Instructions Indication:Hyperlipidemia, mild Start:08-Jun-2017 Instruction Type:Provider Instructions for Treatment How to access health informa tion online Indication:Non-smoker Start:28-Apr-2017 Instruction Type:Patient Education How to access health informa tion online - Detail Indication:Non-smoker Start:28-Apr-2017 Instruction Type:Patient Education Patient Instructions Indication:Non-smoker Start:28-Apr-2017 Instruction Type:Provider Instructions for Treatment How to access health informa tion online Indication:BMI 34.0-34.9,adult Start:16-Apr-2017 Instruction Type:Patient Education How to access health informa tion online - Detail Indication:BMI 34.0-34.9,adult Start:16-Apr-2017 Instruction Type:Patient Education Patient Instructions Indication:BMI 34.0-34.9,adult Start:16-Apr-2017 Instruction Type:Provider Instructions for Treatment How to access health informa tion online Indication:Non-smoker Start:15-Jan-2017 Instruction Type:Patient Education How to access health informa tion online - Detail Indication:Non-smoker Start:15-Jan-2017 Instruction Type:Patient Education Patient Instructions Indication:Non-smoker Start:15-Jan-2017 Instruction Type:Provider Instructions for Treatment How to access health informa tion online Indication:BMI 35.0-35.9,adult Start:15-Dec-2016 Instruction Type:Patient Education How to access health informa tion online - Detail Indication:BMI 35.0-35.9,adult Start:15-Dec-2016 Instruction Type:Patient Education Patient Instructions Indication:BMI 35.0-35.9,adult Start:15-Dec-2016 Instruction Type:Provider Instructions for Treatment How to access health informa tion online Indication:Chronic asthma, unspecified asthma severity, uncomplicated Start:12-Sep-2016 Instruction Type:Patient Education How to access health informa tion online - Detail Indication:Chronic asthma, unspecified asthma severity, uncomplicated Start:12-Sep-2016 Instruction Type:Patient Education Patient Instructions Indication:Chronic asthma, unspecified asthma severity, uncomplicated Start:12-Sep-2016 Instruction Type:Provider Instructions for Treatment How to access health informa tion online Indication:Acute asthma flare Start:08-Sep-2016 Instruction Type:Patient Education How to access health informa tion online - Detail Indication:Acute asthma flare Start:08-Sep-2016 Instruction Type:Patient Education Patient Instructions Indication:Acute asthma flare Start:08-Sep-2016 Instruction Type:Provider Instructions for Treatment How to access health informa tion online Indication:Acute asthma flare Start:01-Sep-2016 Instruction Type:Patient Education How to access health informa tion online - Detail Indication:Acute asthma flare Start:01-Sep-2016 Instruction Type:Patient Education Patient Instructions Indication:Acute asthma flare Start:01-Sep-2016 Instruction Type:Provider Instructions for Treatment How to access health informa tion online Indication:Non-smoker Start:25-Aug-2016 Instruction Type:Patient Education How to access health informa tion online - Detail Indication:Non-smoker Start:25-Aug-2016 Instruction Type:Patient Education Patient Instructions Indication:Non-smoker Start:25-Aug-2016 Instruction Type:Provider Instructions for Treatment How to access health informa tion online Indication:BMI 34.0-34.9,adult Start:21-Jul-2016 Instruction Type:Patient Education How to access health informa tion online - Detail Indication:BMI 34.0-34.9,adult Start:21-Jul-2016 Instruction Type:Patient Education Patient Instructions Indication:BMI 34.0-34.9,adult Start:21-Jul-2016 Instruction Type:Provider Instructions for Treatment How to access health informa tion online Indication:Non-smoker Start:15-Apr-2016 Instruction Type:Patient Education How to access health informa tion online - Detail Indication:Non-smoker Start:15-Apr-2016 Instruction Type:Patient Education Patient Instructions Indication:Non-smoker Start:15-Apr-2016 Instruction Type:Provider Instructions for Treatment How to access health informa tion online Indication:Non-smoker Start:13-Mar-2016 Instruction Type:Patient Education How to access health informa tion online - Detail Indication:Non-smoker Start:13-Mar-2016 Instruction Type:Patient Education Patient Instructions Indication:Non-smoker Start:13-Mar-2016 Instruction Type:Provider Instructions for Treatment How to access health informa tion online Indication:Hypertension Start:07-Feb-2016 Instruction Type:Patient Education How to access health informa tion online - Detail Indication:Hypertension Start:07-Feb-2016 Instruction Type:Patient Education Patient Instructions Indication:Hypertension Start:07-Feb-2016 Instruction Type:Provider Instructions for Treatment How to access health informa tion online Indication:Sore throat Start:23-Jan-2016 Instruction Type:Patient Education How to access health informa tion online - Detail Indication:Sore throat Start:23-Jan-2016 Instruction Type:Patient Education Patient Instructions Indication:Sore throat Start:23-Jan-2016 Instruction Type:Provider Instructions for Treatment How to access health informa tion online Indication:Non-smoker Start:08-Jan-2016 Instruction Type:Patient Education How to access health informa tion online - Detail Indication:Non-smoker Start:08-Jan-2016 Instruction Type:Patient Education Patient Instructions Indication:Non-smoker Start:08-Jan-2016 Instruction Type:Provider Instructions for Treatment Name Dates Details How to access health informa tion online Indication:Non-smoker Start:08-Jul-2019 Instruction Type:Patient Education How to access health informa tion online - Detail Indication:Non-smoker Start:08-Jul-2019 Instruction Type:Patient Education Patient Instructions Indication:Non-smoker Start:08-Jul-2019 Instruction Type:Provider Instructions for Treatment How to access health informa tion online Indication:Non-smoker Start:28-Apr-2019 Instruction Type:Patient Education How to access health informa tion online - Detail Indication:Non-smoker Start:28-Apr-2019 Instruction Type:Patient Education Patient Instructions Indication:Non-smoker Start:28-Apr-2019 Instruction Type:Provider Instructions for Treatment How to access health informa tion online Indication:Abnormal glucose tolerance test Start:10-Mar-2019 Instruction Type:Patient Education How to access health informa tion online - Detail Indication:Abnormal glucose tolerance test Start:10-Mar-2019 Instruction Type:Patient Education Patient Instructions Indication:Abnormal glucose tolerance test Start:10-Mar-2019 Instruction Type:Provider Instructions for Treatment How to access health informa tion online Indication:Abnormal glucose tolerance test Start:25-Oct-2018 Instruction Type:Patient Education How to access health informa tion online - Detail Indication:Abnormal glucose tolerance test Start:25-Oct-2018 Instruction Type:Patient Education Patient Instructions Indication:Abnormal glucose tolerance test Start:25-Oct-2018 Instruction Type:Provider Instructions for Treatment How to access health informa tion online - Detail Indication:Bronchitis Start:27-Sep-2018 Instruction Type:Patient Education Patient Instructions Indication:BMI 36.0-36.9,adult Start:27-Sep-2018 Instruction Type:Provider Instructions for Treatment How to access health informa tion online Indication:Non-smoker Start:21-Jun-2018 Instruction Type:Patient Education How to access health informa tion online - Detail Indication:Non-smoker Start:21-Jun-2018 Instruction Type:Patient Education Patient Instructions Indication:Non-smoker Start:21-Jun-2018 Instruction Type:Provider Instructions for Treatment How to access health informa tion online Indication:Non-smoker Start:10-May-2018 Instruction Type:Patient Education How to access health informa tion online - Detail Indication:Non-smoker Start:10-May-2018 Instruction Type:Patient Education Patient Instructions Indication:BMI 35.0-35.9,adult Start:10-May-2018 Instruction Type:Provider Instructions for Treatment How to access health informa tion online Indication:Non-smoker Start:14-Dec-2017 Instruction Type:Patient Education How to access health informa tion online - Detail Indication:Non-smoker Start:14-Dec-2017 Instruction Type:Patient Education Patient Instructions Indication:Non-smoker Start:14-Dec-2017 Instruction Type:Provider Instructions for Treatment How to access health informa tion online Indication:Cough Start:23-Jun-2017 Instruction Type:Patient Education How to access health informa tion online - Detail Indication:Cough Start:23-Jun-2017 Instruction Type:Patient Education Patient Instructions Indication:Cough Start:23-Jun-2017 Instruction Type:Provider Instructions for Treatment How to access health informa tion online Indication:Hyperlipidemia, mild Start:08-Jun-2017 Instruction Type:Patient Education How to access health informa tion online - Detail Indication:Hyperlipidemia, mild Start:08-Jun-2017 Instruction Type:Patient Education Patient Instructions Indication:Hyperlipidemia, mild Start:08-Jun-2017 Instruction Type:Provider Instructions for Treatment How to access health informa tion online Indication:Non-smoker Start:28-Apr-2017 Instruction Type:Patient Education How to access health informa tion online - Detail Indication:Non-smoker Start:28-Apr-2017 Instruction Type:Patient Education Patient Instructions Indication:Non-smoker Start:28-Apr-2017 Instruction Type:Provider Instructions for Treatment How to access health informa tion online Indication:BMI 34.0-34.9,adult Start:16-Apr-2017 Instruction Type:Patient Education How to access health informa tion online - Detail Indication:BMI 34.0-34.9,adult Start:16-Apr-2017 Instruction Type:Patient Education Patient Instructions Indication:BMI 34.0-34.9,adult Start:16-Apr-2017 Instruction Type:Provider Instructions for Treatment How to access health informa tion online Indication:Non-smoker Start:15-Jan-2017 Instruction Type:Patient Education How to access health informa tion online - Detail Indication:Non-smoker Start:15-Jan-2017 Instruction Type:Patient Education Patient Instructions Indication:Non-smoker Start:15-Jan-2017 Instruction Type:Provider Instructions for Treatment How to access health informa tion online Indication:BMI 35.0-35.9,adult Start:15-Dec-2016 Instruction Type:Patient Education How to access health informa tion online - Detail Indication:BMI 35.0-35.9,adult Start:15-Dec-2016 Instruction Type:Patient Education Patient Instructions Indication:BMI 35.0-35.9,adult Start:15-Dec-2016 Instruction Type:Provider Instructions for Treatment How to access health informa tion online Indication:Chronic asthma, unspecified asthma severity, uncomplicated Start:12-Sep-2016 Instruction Type:Patient Education How to access health informa tion online - Detail Indication:Chronic asthma, unspecified asthma severity, uncomplicated Start:12-Sep-2016 Instruction Type:Patient Education Patient Instructions Indication:Chronic asthma, unspecified asthma severity, uncomplicated Start:12-Sep-2016 Instruction Type:Provider Instructions for Treatment How to access health informa tion online Indication:Acute asthma flare Start:08-Sep-2016 Instruction Type:Patient Education How to access health informa tion online - Detail Indication:Acute asthma flare Start:08-Sep-2016 Instruction Type:Patient Education Patient Instructions Indication:Acute asthma flare Start:08-Sep-2016 Instruction Type:Provider Instructions for Treatment How to access health informa tion online Indication:Acute asthma flare Start:01-Sep-2016 Instruction Type:Patient Education How to access health informa tion online - Detail Indication:Acute asthma flare Start:01-Sep-2016 Instruction Type:Patient Education Patient Instructions Indication:Acute asthma flare Start:01-Sep-2016 Instruction Type:Provider Instructions for Treatment How to access health informa tion online Indication:Non-smoker Start:25-Aug-2016 Instruction Type:Patient Education How to access health informa tion online - Detail Indication:Non-smoker Start:25-Aug-2016 Instruction Type:Patient Education Patient Instructions Indication:Non-smoker Start:25-Aug-2016 Instruction Type:Provider Instructions for Treatment How to access health informa tion online Indication:BMI 34.0-34.9,adult Start:21-Jul-2016 Instruction Type:Patient Education How to access health informa tion online - Detail Indication:BMI 34.0-34.9,adult Start:21-Jul-2016 Instruction Type:Patient Education Patient Instructions Indication:BMI 34.0-34.9,adult Start:21-Jul-2016 Instruction Type:Provider Instructions for Treatment How to access health informa tion online Indication:Non-smoker Start:15-Apr-2016 Instruction Type:Patient Education How to access health informa tion online - Detail Indication:Non-smoker Start:15-Apr-2016 Instruction Type:Patient Education Patient Instructions Indication:Non-smoker Start:15-Apr-2016 Instruction Type:Provider Instructions for Treatment How to access health informa tion online Indication:Non-smoker Start:13-Mar-2016 Instruction Type:Patient Education How to access health informa tion online - Detail Indication:Non-smoker Start:13-Mar-2016 Instruction Type:Patient Education Patient Instructions Indication:Non-smoker Start:13-Mar-2016 Instruction Type:Provider Instructions for Treatment How to access health informa tion online Indication:Hypertension Start:07-Feb-2016 Instruction Type:Patient Education How to access health informa tion online - Detail Indication:Hypertension Start:07-Feb-2016 Instruction Type:Patient Education Patient Instructions Indication:Hypertension Start:07-Feb-2016 Instruction Type:Provider Instructions for Treatment How to access health informa tion online Indication:Sore throat Start:23-Jan-2016 Instruction Type:Patient Education How to access health informa tion online - Detail Indication:Sore throat Start:23-Jan-2016 Instruction Type:Patient Education Patient Instructions Indication:Sore throat Start:23-Jan-2016 Instruction Type:Provider Instructions for Treatment How to access health informa tion online Indication:Non-smoker Start:08-Jan-2016 Instruction Type:Patient Education How to access health informa tion online - Detail Indication:Non-smoker Start:08-Jan-2016 Instruction Type:Patient Education Patient Instructions Indication:Non-smoker Start:08-Jan-2016 Instruction Type:Provider Instructions for Treatment Name Dates Details How to access health informa tion online Indication:Non-smoker Start:08-Jul-2019 Instruction Type:Patient Education How to access health informa tion online - Detail Indication:Non-smoker Start:08-Jul-2019 Instruction Type:Patient Education Patient Instructions Indication:Non-smoker Start:08-Jul-2019 Instruction Type:Provider Instructions for Treatment How to access health informa tion online Indication:Non-smoker Start:28-Apr-2019 Instruction Type:Patient Education How to access health informa tion online - Detail Indication:Non-smoker Start:28-Apr-2019 Instruction Type:Patient Education Patient Instructions Indication:Non-smoker Start:28-Apr-2019 Instruction Type:Provider Instructions for Treatment How to access health informa tion online Indication:Abnormal glucose tolerance test Start:10-Mar-2019 Instruction Type:Patient Education How to access health informa tion online - Detail Indication:Abnormal glucose tolerance test Start:10-Mar-2019 Instruction Type:Patient Education Patient Instructions Indication:Abnormal glucose tolerance test Start:10-Mar-2019 Instruction Type:Provider Instructions for Treatment How to access health informa tion online Indication:Abnormal glucose tolerance test Start:25-Oct-2018 Instruction Type:Patient Education How to access health informa tion online - Detail Indication:Abnormal glucose tolerance test Start:25-Oct-2018 Instruction Type:Patient Education Patient Instructions Indication:Abnormal glucose tolerance test Start:25-Oct-2018 Instruction Type:Provider Instructions for Treatment How to access health informa tion online - Detail Indication:Bronchitis Start:27-Sep-2018 Instruction Type:Patient Education Patient Instructions Indication:BMI 36.0-36.9,adult Start:27-Sep-2018 Instruction Type:Provider Instructions for Treatment How to access health informa tion online Indication:Non-smoker Start:21-Jun-2018 Instruction Type:Patient Education How to access health informa tion online - Detail Indication:Non-smoker Start:21-Jun-2018 Instruction Type:Patient Education Patient Instructions Indication:Non-smoker Start:21-Jun-2018 Instruction Type:Provider Instructions for Treatment How to access health informa tion online Indication:Non-smoker Start:10-May-2018 Instruction Type:Patient Education How to access health informa tion online - Detail Indication:Non-smoker Start:10-May-2018 Instruction Type:Patient Education Patient Instructions Indication:BMI 35.0-35.9,adult Start:10-May-2018 Instruction Type:Provider Instructions for Treatment How to access health informa tion online Indication:Non-smoker Start:14-Dec-2017 Instruction Type:Patient Education How to access health informa tion online - Detail Indication:Non-smoker Start:14-Dec-2017 Instruction Type:Patient Education Patient Instructions Indication:Non-smoker Start:14-Dec-2017 Instruction Type:Provider Instructions for Treatment How to access health informa tion online Indication:Cough Start:23-Jun-2017 Instruction Type:Patient Education How to access health informa tion online - Detail Indication:Cough Start:23-Jun-2017 Instruction Type:Patient Education Patient Instructions Indication:Cough Start:23-Jun-2017 Instruction Type:Provider Instructions for Treatment How to access health informa tion online Indication:Hyperlipidemia, mild Start:08-Jun-2017 Instruction Type:Patient Education How to access health informa tion online - Detail Indication:Hyperlipidemia, mild Start:08-Jun-2017 Instruction Type:Patient Education Patient Instructions Indication:Hyperlipidemia, mild Start:08-Jun-2017 Instruction Type:Provider Instructions for Treatment How to access health informa tion online Indication:Non-smoker Start:28-Apr-2017 Instruction Type:Patient Education How to access health informa tion online - Detail Indication:Non-smoker Start:28-Apr-2017 Instruction Type:Patient Education Patient Instructions Indication:Non-smoker Start:28-Apr-2017 Instruction Type:Provider Instructions for Treatment How to access health informa tion online Indication:BMI 34.0-34.9,adult Start:16-Apr-2017 Instruction Type:Patient Education How to access health informa tion online - Detail Indication:BMI 34.0-34.9,adult Start:16-Apr-2017 Instruction Type:Patient Education Patient Instructions Indication:BMI 34.0-34.9,adult Start:16-Apr-2017 Instruction Type:Provider Instructions for Treatment How to access health informa tion online Indication:Non-smoker Start:15-Jan-2017 Instruction Type:Patient Education How to access health informa tion online - Detail Indication:Non-smoker Start:15-Jan-2017 Instruction Type:Patient Education Patient Instructions Indication:Non-smoker Start:15-Jan-2017 Instruction Type:Provider Instructions for Treatment How to access health informa tion online Indication:BMI 35.0-35.9,adult Start:15-Dec-2016 Instruction Type:Patient Education How to access health informa tion online - Detail Indication:BMI 35.0-35.9,adult Start:15-Dec-2016 Instruction Type:Patient Education Patient Instructions Indication:BMI 35.0-35.9,adult Start:15-Dec-2016 Instruction Type:Provider Instructions for Treatment How to access health informa tion online Indication:Chronic asthma, unspecified asthma severity, uncomplicated Start:12-Sep-2016 Instruction Type:Patient Education How to access health informa tion online - Detail Indication:Chronic asthma, unspecified asthma severity, uncomplicated Start:12-Sep-2016 Instruction Type:Patient Education Patient Instructions Indication:Chronic asthma, unspecified asthma severity, uncomplicated Start:12-Sep-2016 Instruction Type:Provider Instructions for Treatment How to access health informa tion online Indication:Acute asthma flare Start:08-Sep-2016 Instruction Type:Patient Education How to access health informa tion online - Detail Indication:Acute asthma flare Start:08-Sep-2016 Instruction Type:Patient Education Patient Instructions Indication:Acute asthma flare Start:08-Sep-2016 Instruction Type:Provider Instructions for Treatment How to access health informa tion online Indication:Acute asthma flare Start:01-Sep-2016 Instruction Type:Patient Education How to access health informa tion online - Detail Indication:Acute asthma flare Start:01-Sep-2016 Instruction Type:Patient Education Patient Instructions Indication:Acute asthma flare Start:01-Sep-2016 Instruction Type:Provider Instructions for Treatment How to access health informa tion online Indication:Non-smoker Start:25-Aug-2016 Instruction Type:Patient Education How to access health informa tion online - Detail Indication:Non-smoker Start:25-Aug-2016 Instruction Type:Patient Education Patient Instructions Indication:Non-smoker Start:25-Aug-2016 Instruction Type:Provider Instructions for Treatment How to access health informa tion online Indication:BMI 34.0-34.9,adult Start:21-Jul-2016 Instruction Type:Patient Education How to access health informa tion online - Detail Indication:BMI 34.0-34.9,adult Start:21-Jul-2016 Instruction Type:Patient Education Patient Instructions Indication:BMI 34.0-34.9,adult Start:21-Jul-2016 Instruction Type:Provider Instructions for Treatment How to access health informa tion online Indication:Non-smoker Start:15-Apr-2016 Instruction Type:Patient Education How to access health informa tion online - Detail Indication:Non-smoker Start:15-Apr-2016 Instruction Type:Patient Education Patient Instructions Indication:Non-smoker Start:15-Apr-2016 Instruction Type:Provider Instructions for Treatment How to access health informa tion online Indication:Non-smoker Start:13-Mar-2016 Instruction Type:Patient Education How to access health informa tion online - Detail Indication:Non-smoker Start:13-Mar-2016 Instruction Type:Patient Education Patient Instructions Indication:Non-smoker Start:13-Mar-2016 Instruction Type:Provider Instructions for Treatment How to access health informa tion online Indication:Hypertension Start:07-Feb-2016 Instruction Type:Patient Education How to access health informa tion online - Detail Indication:Hypertension Start:07-Feb-2016 Instruction Type:Patient Education Patient Instructions Indication:Hypertension Start:07-Feb-2016 Instruction Type:Provider Instructions for Treatment How to access health informa tion online Indication:Sore throat Start:23-Jan-2016 Instruction Type:Patient Education How to access health informa tion online - Detail Indication:Sore throat Start:23-Jan-2016 Instruction Type:Patient Education Patient Instructions Indication:Sore throat Start:23-Jan-2016 Instruction Type:Provider Instructions for Treatment How to access health informa tion online Indication:Non-smoker Start:08-Jan-2016 Instruction Type:Patient Education How to access health informa tion online - Detail Indication:Non-smoker Start:08-Jan-2016 Instruction Type:Patient Education Patient Instructions Indication:Non-smoker Start:08-Jan-2016 Instruction Type:Provider Instructions for Treatment Name Dates Details How to access health informa tion online Indication:Non-smoker Start:08-Jul-2019 Instruction Type:Patient Education How to access health informa tion online - Detail Indication:Non-smoker Start:08-Jul-2019 Instruction Type:Patient Education Patient Instructions Indication:Non-smoker Start:08-Jul-2019 Instruction Type:Provider Instructions for Treatment How to access health informa tion online Indication:Non-smoker Start:28-Apr-2019 Instruction Type:Patient Education How to access health informa tion online - Detail Indication:Non-smoker Start:28-Apr-2019 Instruction Type:Patient Education Patient Instructions Indication:Non-smoker Start:28-Apr-2019 Instruction Type:Provider Instructions for Treatment How to access health informa tion online Indication:Abnormal glucose tolerance test Start:10-Mar-2019 Instruction Type:Patient Education How to access health informa tion online - Detail Indication:Abnormal glucose tolerance test Start:10-Mar-2019 Instruction Type:Patient Education Patient Instructions Indication:Abnormal glucose tolerance test Start:10-Mar-2019 Instruction Type:Provider Instructions for Treatment How to access health informa tion online Indication:Abnormal glucose tolerance test Start:25-Oct-2018 Instruction Type:Patient Education How to access health informa tion online - Detail Indication:Abnormal glucose tolerance test Start:25-Oct-2018 Instruction Type:Patient Education Patient Instructions Indication:Abnormal glucose tolerance test Start:25-Oct-2018 Instruction Type:Provider Instructions for Treatment How to access health informa tion online - Detail Indication:Bronchitis Start:27-Sep-2018 Instruction Type:Patient Education Patient Instructions Indication:BMI 36.0-36.9,adult Start:27-Sep-2018 Instruction Type:Provider Instructions for Treatment How to access health informa tion online Indication:Non-smoker Start:21-Jun-2018 Instruction Type:Patient Education How to access health informa tion online - Detail Indication:Non-smoker Start:21-Jun-2018 Instruction Type:Patient Education Patient Instructions Indication:Non-smoker Start:21-Jun-2018 Instruction Type:Provider Instructions for Treatment How to access health informa tion online Indication:Non-smoker Start:10-May-2018 Instruction Type:Patient Education How to access health informa tion online - Detail Indication:Non-smoker Start:10-May-2018 Instruction Type:Patient Education Patient Instructions Indication:BMI 35.0-35.9,adult Start:10-May-2018 Instruction Type:Provider Instructions for Treatment How to access health informa tion online Indication:Non-smoker Start:14-Dec-2017 Instruction Type:Patient Education How to access health informa tion online - Detail Indication:Non-smoker Start:14-Dec-2017 Instruction Type:Patient Education Patient Instructions Indication:Non-smoker Start:14-Dec-2017 Instruction Type:Provider Instructions for Treatment How to access health informa tion online Indication:Cough Start:23-Jun-2017 Instruction Type:Patient Education How to access health informa tion online - Detail Indication:Cough Start:23-Jun-2017 Instruction Type:Patient Education Patient Instructions Indication:Cough Start:23-Jun-2017 Instruction Type:Provider Instructions for Treatment How to access health informa tion online Indication:Hyperlipidemia, mild Start:08-Jun-2017 Instruction Type:Patient Education How to access health informa tion online - Detail Indication:Hyperlipidemia, mild Start:08-Jun-2017 Instruction Type:Patient Education Patient Instructions Indication:Hyperlipidemia, mild Start:08-Jun-2017 Instruction Type:Provider Instructions for Treatment How to access health informa tion online Indication:Non-smoker Start:28-Apr-2017 Instruction Type:Patient Education How to access health informa tion online - Detail Indication:Non-smoker Start:28-Apr-2017 Instruction Type:Patient Education Patient Instructions Indication:Non-smoker Start:28-Apr-2017 Instruction Type:Provider Instructions for Treatment How to access health informa tion online Indication:BMI 34.0-34.9,adult Start:16-Apr-2017 Instruction Type:Patient Education How to access health informa tion online - Detail Indication:BMI 34.0-34.9,adult Start:16-Apr-2017 Instruction Type:Patient Education Patient Instructions Indication:BMI 34.0-34.9,adult Start:16-Apr-2017 Instruction Type:Provider Instructions for Treatment How to access health informa tion online Indication:Non-smoker Start:15-Jan-2017 Instruction Type:Patient Education How to access health informa tion online - Detail Indication:Non-smoker Start:15-Jan-2017 Instruction Type:Patient Education Patient Instructions Indication:Non-smoker Start:15-Jan-2017 Instruction Type:Provider Instructions for Treatment How to access health informa tion online Indication:BMI 35.0-35.9,adult Start:15-Dec-2016 Instruction Type:Patient Education How to access health informa tion online - Detail Indication:BMI 35.0-35.9,adult Start:15-Dec-2016 Instruction Type:Patient Education Patient Instructions Indication:BMI 35.0-35.9,adult Start:15-Dec-2016 Instruction Type:Provider Instructions for Treatment How to access health informa tion online Indication:Chronic asthma, unspecified asthma severity, uncomplicated Start:12-Sep-2016 Instruction Type:Patient Education How to access health informa tion online - Detail Indication:Chronic asthma, unspecified asthma severity, uncomplicated Start:12-Sep-2016 Instruction Type:Patient Education Patient Instructions Indication:Chronic asthma, unspecified asthma severity, uncomplicated Start:12-Sep-2016 Instruction Type:Provider Instructions for Treatment How to access health informa tion online Indication:Acute asthma flare Start:08-Sep-2016 Instruction Type:Patient Education How to access health informa tion online - Detail Indication:Acute asthma flare Start:08-Sep-2016 Instruction Type:Patient Education Patient Instructions Indication:Acute asthma flare Start:08-Sep-2016 Instruction Type:Provider Instructions for Treatment How to access health informa tion online Indication:Acute asthma flare Start:01-Sep-2016 Instruction Type:Patient Education How to access health informa tion online - Detail Indication:Acute asthma flare Start:01-Sep-2016 Instruction Type:Patient Education Patient Instructions Indication:Acute asthma flare Start:01-Sep-2016 Instruction Type:Provider Instructions for Treatment How to access health informa tion online Indication:Non-smoker Start:25-Aug-2016 Instruction Type:Patient Education How to access health informa tion online - Detail Indication:Non-smoker Start:25-Aug-2016 Instruction Type:Patient Education Patient Instructions Indication:Non-smoker Start:25-Aug-2016 Instruction Type:Provider Instructions for Treatment How to access health informa tion online Indication:BMI 34.0-34.9,adult Start:21-Jul-2016 Instruction Type:Patient Education How to access health informa tion online - Detail Indication:BMI 34.0-34.9,adult Start:21-Jul-2016 Instruction Type:Patient Education Patient Instructions Indication:BMI 34.0-34.9,adult Start:21-Jul-2016 Instruction Type:Provider Instructions for Treatment How to access health informa tion online Indication:Non-smoker Start:15-Apr-2016 Instruction Type:Patient Education How to access health informa tion online - Detail Indication:Non-smoker Start:15-Apr-2016 Instruction Type:Patient Education Patient Instructions Indication:Non-smoker Start:15-Apr-2016 Instruction Type:Provider Instructions for Treatment How to access health informa tion online Indication:Non-smoker Start:13-Mar-2016 Instruction Type:Patient Education How to access health informa tion online - Detail Indication:Non-smoker Start:13-Mar-2016 Instruction Type:Patient Education Patient Instructions Indication:Non-smoker Start:13-Mar-2016 Instruction Type:Provider Instructions for Treatment How to access health informa tion online Indication:Hypertension Start:07-Feb-2016 Instruction Type:Patient Education How to access health informa tion online - Detail Indication:Hypertension Start:07-Feb-2016 Instruction Type:Patient Education Patient Instructions Indication:Hypertension Start:07-Feb-2016 Instruction Type:Provider Instructions for Treatment How to access health informa tion online Indication:Sore throat Start:23-Jan-2016 Instruction Type:Patient Education How to access health informa tion online - Detail Indication:Sore throat Start:23-Jan-2016 Instruction Type:Patient Education Patient Instructions Indication:Sore throat Start:23-Jan-2016 Instruction Type:Provider Instructions for Treatment How to access health informa tion online Indication:Non-smoker Start:08-Jan-2016 Instruction Type:Patient Education How to access health informa tion online - Detail Indication:Non-smoker Start:08-Jan-2016 Instruction Type:Patient Education Patient Instructions Indication:Non-smoker Start:08-Jan-2016 Instruction Type:Provider Instructions for Treatment Name Dates Details How to access health informa tion online Indication:Non-smoker Start:08-Jul-2019 Instruction Type:Patient Education How to access health informa tion online - Detail Indication:Non-smoker Start:08-Jul-2019 Instruction Type:Patient Education Patient Instructions Indication:Non-smoker Start:08-Jul-2019 Instruction Type:Provider Instructions for Treatment How to access health informa tion online Indication:Non-smoker Start:28-Apr-2019 Instruction Type:Patient Education How to access health informa tion online - Detail Indication:Non-smoker Start:28-Apr-2019 Instruction Type:Patient Education Patient Instructions Indication:Non-smoker Start:28-Apr-2019 Instruction Type:Provider Instructions for Treatment How to access health informa tion online Indication:Abnormal glucose tolerance test Start:10-Mar-2019 Instruction Type:Patient Education How to access health informa tion online - Detail Indication:Abnormal glucose tolerance test Start:10-Mar-2019 Instruction Type:Patient Education Patient Instructions Indication:Abnormal glucose tolerance test Start:10-Mar-2019 Instruction Type:Provider Instructions for Treatment How to access health informa tion online Indication:Abnormal glucose tolerance test Start:25-Oct-2018 Instruction Type:Patient Education How to access health informa tion online - Detail Indication:Abnormal glucose tolerance test Start:25-Oct-2018 Instruction Type:Patient Education Patient Instructions Indication:Abnormal glucose tolerance test Start:25-Oct-2018 Instruction Type:Provider Instructions for Treatment How to access health informa tion online - Detail Indication:Bronchitis Start:27-Sep-2018 Instruction Type:Patient Education Patient Instructions Indication:BMI 36.0-36.9,adult Start:27-Sep-2018 Instruction Type:Provider Instructions for Treatment How to access health informa tion online Indication:Non-smoker Start:21-Jun-2018 Instruction Type:Patient Education How to access health informa tion online - Detail Indication:Non-smoker Start:21-Jun-2018 Instruction Type:Patient Education Patient Instructions Indication:Non-smoker Start:21-Jun-2018 Instruction Type:Provider Instructions for Treatment How to access health informa tion online Indication:Non-smoker Start:10-May-2018 Instruction Type:Patient Education How to access health informa tion online - Detail Indication:Non-smoker Start:10-May-2018 Instruction Type:Patient Education Patient Instructions Indication:BMI 35.0-35.9,adult Start:10-May-2018 Instruction Type:Provider Instructions for Treatment How to access health informa tion online Indication:Non-smoker Start:14-Dec-2017 Instruction Type:Patient Education How to access health informa tion online - Detail Indication:Non-smoker Start:14-Dec-2017 Instruction Type:Patient Education Patient Instructions Indication:Non-smoker Start:14-Dec-2017 Instruction Type:Provider Instructions for Treatment How to access health informa tion online Indication:Cough Start:23-Jun-2017 Instruction Type:Patient Education How to access health informa tion online - Detail Indication:Cough Start:23-Jun-2017 Instruction Type:Patient Education Patient Instructions Indication:Cough Start:23-Jun-2017 Instruction Type:Provider Instructions for Treatment How to access health informa tion online Indication:Hyperlipidemia, mild Start:08-Jun-2017 Instruction Type:Patient Education How to access health informa tion online - Detail Indication:Hyperlipidemia, mild Start:08-Jun-2017 Instruction Type:Patient Education Patient Instructions Indication:Hyperlipidemia, mild Start:08-Jun-2017 Instruction Type:Provider Instructions for Treatment How to access health informa tion online Indication:Non-smoker Start:28-Apr-2017 Instruction Type:Patient Education How to access health informa tion online - Detail Indication:Non-smoker Start:28-Apr-2017 Instruction Type:Patient Education Patient Instructions Indication:Non-smoker Start:28-Apr-2017 Instruction Type:Provider Instructions for Treatment How to access health informa tion online Indication:BMI 34.0-34.9,adult Start:16-Apr-2017 Instruction Type:Patient Education How to access health informa tion online - Detail Indication:BMI 34.0-34.9,adult Start:16-Apr-2017 Instruction Type:Patient Education Patient Instructions Indication:BMI 34.0-34.9,adult Start:16-Apr-2017 Instruction Type:Provider Instructions for Treatment How to access health informa tion online Indication:Non-smoker Start:15-Jan-2017 Instruction Type:Patient Education How to access health informa tion online - Detail Indication:Non-smoker Start:15-Jan-2017 Instruction Type:Patient Education Patient Instructions Indication:Non-smoker Start:15-Jan-2017 Instruction Type:Provider Instructions for Treatment How to access health informa tion online Indication:BMI 35.0-35.9,adult Start:15-Dec-2016 Instruction Type:Patient Education How to access health informa tion online - Detail Indication:BMI 35.0-35.9,adult Start:15-Dec-2016 Instruction Type:Patient Education Patient Instructions Indication:BMI 35.0-35.9,adult Start:15-Dec-2016 Instruction Type:Provider Instructions for Treatment How to access health informa tion online Indication:Chronic asthma, unspecified asthma severity, uncomplicated Start:12-Sep-2016 Instruction Type:Patient Education How to access health informa tion online - Detail Indication:Chronic asthma, unspecified asthma severity, uncomplicated Start:12-Sep-2016 Instruction Type:Patient Education Patient Instructions Indication:Chronic asthma, unspecified asthma severity, uncomplicated Start:12-Sep-2016 Instruction Type:Provider Instructions for Treatment How to access health informa tion online Indication:Acute asthma flare Start:08-Sep-2016 Instruction Type:Patient Education How to access health informa tion online - Detail Indication:Acute asthma flare Start:08-Sep-2016 Instruction Type:Patient Education Patient Instructions Indication:Acute asthma flare Start:08-Sep-2016 Instruction Type:Provider Instructions for Treatment How to access health informa tion online Indication:Acute asthma flare Start:01-Sep-2016 Instruction Type:Patient Education How to access health informa tion online - Detail Indication:Acute asthma flare Start:01-Sep-2016 Instruction Type:Patient Education Patient Instructions Indication:Acute asthma flare Start:01-Sep-2016 Instruction Type:Provider Instructions for Treatment How to access health informa tion online Indication:Non-smoker Start:25-Aug-2016 Instruction Type:Patient Education How to access health informa tion online - Detail Indication:Non-smoker Start:25-Aug-2016 Instruction Type:Patient Education Patient Instructions Indication:Non-smoker Start:25-Aug-2016 Instruction Type:Provider Instructions for Treatment How to access health informa tion online Indication:BMI 34.0-34.9,adult Start:21-Jul-2016 Instruction Type:Patient Education How to access health informa tion online - Detail Indication:BMI 34.0-34.9,adult Start:21-Jul-2016 Instruction Type:Patient Education Patient Instructions Indication:BMI 34.0-34.9,adult Start:21-Jul-2016 Instruction Type:Provider Instructions for Treatment How to access health informa tion online Indication:Non-smoker Start:15-Apr-2016 Instruction Type:Patient Education How to access health informa tion online - Detail Indication:Non-smoker Start:15-Apr-2016 Instruction Type:Patient Education Patient Instructions Indication:Non-smoker Start:15-Apr-2016 Instruction Type:Provider Instructions for Treatment How to access health informa tion online Indication:Non-smoker Start:13-Mar-2016 Instruction Type:Patient Education How to access health informa tion online - Detail Indication:Non-smoker Start:13-Mar-2016 Instruction Type:Patient Education Patient Instructions Indication:Non-smoker Start:13-Mar-2016 Instruction Type:Provider Instructions for Treatment How to access health informa tion online Indication:Hypertension Start:07-Feb-2016 Instruction Type:Patient Education How to access health informa tion online - Detail Indication:Hypertension Start:07-Feb-2016 Instruction Type:Patient Education Patient Instructions Indication:Hypertension Start:07-Feb-2016 Instruction Type:Provider Instructions for Treatment How to access health informa tion online Indication:Sore throat Start:23-Jan-2016 Instruction Type:Patient Education How to access health informa tion online - Detail Indication:Sore throat Start:23-Jan-2016 Instruction Type:Patient Education Patient Instructions Indication:Sore throat Start:23-Jan-2016 Instruction Type:Provider Instructions for Treatment How to access health informa tion online Indication:Non-smoker Start:08-Jan-2016 Instruction Type:Patient Education How to access health informa tion online - Detail Indication:Non-smoker Start:08-Jan-2016 Instruction Type:Patient Education Patient Instructions Indication:Non-smoker Start:08-Jan-2016 Instruction Type:Provider Instructions for Treatment Name Dates Details How to access health informa tion online Indication:Non-smoker Start:21-Jun-2018 Instruction Type:Patient Education How to access health informa tion online - Detail Indication:Non-smoker Start:21-Jun-2018 Instruction Type:Patient Education Patient Instructions Indication:Non-smoker Start:21-Jun-2018 Instruction Type:Provider Instructions for Treatment How to access health informa tion online Indication:Non-smoker Start:10-May-2018 Instruction Type:Patient Education How to access health informa tion online - Detail Indication:Non-smoker Start:10-May-2018 Instruction Type:Patient Education Patient Instructions Indication:BMI 35.0-35.9,adult Start:10-May-2018 Instruction Type:Provider Instructions for Treatment How to access health informa tion online Indication:Non-smoker Start:14-Dec-2017 Instruction Type:Patient Education How to access health informa tion online - Detail Indication:Non-smoker Start:14-Dec-2017 Instruction Type:Patient Education Patient Instructions Indication:Non-smoker Start:14-Dec-2017 Instruction Type:Provider Instructions for Treatment How to access health informa tion online Indication:Cough Start:23-Jun-2017 Instruction Type:Patient Education How to access health informa tion online - Detail Indication:Cough Start:23-Jun-2017 Instruction Type:Patient Education Patient Instructions Indication:Cough Start:23-Jun-2017 Instruction Type:Provider Instructions for Treatment How to access health informa tion online Indication:Hyperlipidemia, mild Start:08-Jun-2017 Instruction Type:Patient Education How to access health informa tion online - Detail Indication:Hyperlipidemia, mild Start:08-Jun-2017 Instruction Type:Patient Education Patient Instructions Indication:Hyperlipidemia, mild Start:08-Jun-2017 Instruction Type:Provider Instructions for Treatment How to access health informa tion online Indication:Non-smoker Start:28-Apr-2017 Instruction Type:Patient Education How to access health informa tion online - Detail Indication:Non-smoker Start:28-Apr-2017 Instruction Type:Patient Education Patient Instructions Indication:Non-smoker Start:28-Apr-2017 Instruction Type:Provider Instructions for Treatment How to access health informa tion online Indication:BMI 34.0-34.9,adult Start:16-Apr-2017 Instruction Type:Patient Education How to access health informa tion online - Detail Indication:BMI 34.0-34.9,adult Start:16-Apr-2017 Instruction Type:Patient Education Patient Instructions Indication:BMI 34.0-34.9,adult Start:16-Apr-2017 Instruction Type:Provider Instructions for Treatment How to access health informa tion online Indication:Non-smoker Start:15-Jan-2017 Instruction Type:Patient Education How to access health informa tion online - Detail Indication:Non-smoker Start:15-Jan-2017 Instruction Type:Patient Education Patient Instructions Indication:Non-smoker Start:15-Jan-2017 Instruction Type:Provider Instructions for Treatment How to access health informa tion online Indication:BMI 35.0-35.9,adult Start:15-Dec-2016 Instruction Type:Patient Education How to access health informa tion online - Detail Indication:BMI 35.0-35.9,adult Start:15-Dec-2016 Instruction Type:Patient Education Patient Instructions Indication:BMI 35.0-35.9,adult Start:15-Dec-2016 Instruction Type:Provider Instructions for Treatment How to access health informa tion online Indication:Chronic asthma, unspecified asthma severity, uncomplicated Start:12-Sep-2016 Instruction Type:Patient Education How to access health informa tion online - Detail Indication:Chronic asthma, unspecified asthma severity, uncomplicated Start:12-Sep-2016 Instruction Type:Patient Education Patient Instructions Indication:Chronic asthma, unspecified asthma severity, uncomplicated Start:12-Sep-2016 Instruction Type:Provider Instructions for Treatment How to access health informa tion online Indication:Acute asthma flare Start:08-Sep-2016 Instruction Type:Patient Education How to access health informa tion online - Detail Indication:Acute asthma flare Start:08-Sep-2016 Instruction Type:Patient Education Patient Instructions Indication:Acute asthma flare Start:08-Sep-2016 Instruction Type:Provider Instructions for Treatment How to access health informa tion online Indication:Acute asthma flare Start:01-Sep-2016 Instruction Type:Patient Education How to access health informa tion online - Detail Indication:Acute asthma flare Start:01-Sep-2016 Instruction Type:Patient Education Patient Instructions Indication:Acute asthma flare Start:01-Sep-2016 Instruction Type:Provider Instructions for Treatment How to access health informa tion online Indication:Non-smoker Start:25-Aug-2016 Instruction Type:Patient Education How to access health informa tion online - Detail Indication:Non-smoker Start:25-Aug-2016 Instruction Type:Patient Education Patient Instructions Indication:Non-smoker Start:25-Aug-2016 Instruction Type:Provider Instructions for Treatment How to access health informa tion online Indication:BMI 34.0-34.9,adult Start:21-Jul-2016 Instruction Type:Patient Education How to access health informa tion online - Detail Indication:BMI 34.0-34.9,adult Start:21-Jul-2016 Instruction Type:Patient Education Patient Instructions Indication:BMI 34.0-34.9,adult Start:21-Jul-2016 Instruction Type:Provider Instructions for Treatment How to access health informa tion online Indication:Non-smoker Start:15-Apr-2016 Instruction Type:Patient Education How to access health informa tion online - Detail Indication:Non-smoker Start:15-Apr-2016 Instruction Type:Patient Education Patient Instructions Indication:Non-smoker Start:15-Apr-2016 Instruction Type:Provider Instructions for Treatment How to access health informa tion online Indication:Non-smoker Start:13-Mar-2016 Instruction Type:Patient Education How to access health informa tion online - Detail Indication:Non-smoker Start:13-Mar-2016 Instruction Type:Patient Education Patient Instructions Indication:Non-smoker Start:13-Mar-2016 Instruction Type:Provider Instructions for Treatment How to access health informa tion online Indication:Hypertension Start:07-Feb-2016 Instruction Type:Patient Education How to access health informa tion online - Detail Indication:Hypertension Start:07-Feb-2016 Instruction Type:Patient Education Patient Instructions Indication:Hypertension Start:07-Feb-2016 Instruction Type:Provider Instructions for Treatment How to access health informa tion online Indication:Sore throat Start:23-Jan-2016 Instruction Type:Patient Education How to access health informa tion online - Detail Indication:Sore throat Start:23-Jan-2016 Instruction Type:Patient Education Patient Instructions Indication:Sore throat Start:23-Jan-2016 Instruction Type:Provider Instructions for Treatment How to access health informa tion online Indication:Non-smoker Start:08-Jan-2016 Instruction Type:Patient Education How to access health informa tion online - Detail Indication:Non-smoker Start:08-Jan-2016 Instruction Type:Patient Education Patient Instructions Indication:Non-smoker Start:08-Jan-2016 Instruction Type:Provider Instructions for Treatment Name Dates Details How to access health informa tion online - Detail Indication:Bronchitis Start:27-Sep-2018 Instruction Type:Patient Education Patient Instructions Indication:BMI 36.0-36.9,adult Start:27-Sep-2018 Instruction Type:Provider Instructions for Treatment How to access health informa tion online Indication:Non-smoker Start:21-Jun-2018 Instruction Type:Patient Education How to access health informa tion online - Detail Indication:Non-smoker Start:21-Jun-2018 Instruction Type:Patient Education Patient Instructions Indication:Non-smoker Start:21-Jun-2018 Instruction Type:Provider Instructions for Treatment How to access health informa tion online Indication:Non-smoker Start:10-May-2018 Instruction Type:Patient Education How to access health informa tion online - Detail Indication:Non-smoker Start:10-May-2018 Instruction Type:Patient Education Patient Instructions Indication:BMI 35.0-35.9,adult Start:10-May-2018 Instruction Type:Provider Instructions for Treatment How to access health informa tion online Indication:Non-smoker Start:14-Dec-2017 Instruction Type:Patient Education How to access health informa tion online - Detail Indication:Non-smoker Start:14-Dec-2017 Instruction Type:Patient Education Patient Instructions Indication:Non-smoker Start:14-Dec-2017 Instruction Type:Provider Instructions for Treatment How to access health informa tion online Indication:Cough Start:23-Jun-2017 Instruction Type:Patient Education How to access health informa tion online - Detail Indication:Cough Start:23-Jun-2017 Instruction Type:Patient Education Patient Instructions Indication:Cough Start:23-Jun-2017 Instruction Type:Provider Instructions for Treatment How to access health informa tion online Indication:Hyperlipidemia, mild Start:08-Jun-2017 Instruction Type:Patient Education How to access health informa tion online - Detail Indication:Hyperlipidemia, mild Start:08-Jun-2017 Instruction Type:Patient Education Patient Instructions Indication:Hyperlipidemia, mild Start:08-Jun-2017 Instruction Type:Provider Instructions for Treatment How to access health informa tion online Indication:Non-smoker Start:28-Apr-2017 Instruction Type:Patient Education How to access health informa tion online - Detail Indication:Non-smoker Start:28-Apr-2017 Instruction Type:Patient Education Patient Instructions Indication:Non-smoker Start:28-Apr-2017 Instruction Type:Provider Instructions for Treatment How to access health informa tion online Indication:BMI 34.0-34.9,adult Start:16-Apr-2017 Instruction Type:Patient Education How to access health informa tion online - Detail Indication:BMI 34.0-34.9,adult Start:16-Apr-2017 Instruction Type:Patient Education Patient Instructions Indication:BMI 34.0-34.9,adult Start:16-Apr-2017 Instruction Type:Provider Instructions for Treatment How to access health informa tion online Indication:Non-smoker Start:15-Jan-2017 Instruction Type:Patient Education How to access health informa tion online - Detail Indication:Non-smoker Start:15-Jan-2017 Instruction Type:Patient Education Patient Instructions Indication:Non-smoker Start:15-Jan-2017 Instruction Type:Provider Instructions for Treatment How to access health informa tion online Indication:BMI 35.0-35.9,adult Start:15-Dec-2016 Instruction Type:Patient Education How to access health informa tion online - Detail Indication:BMI 35.0-35.9,adult Start:15-Dec-2016 Instruction Type:Patient Education Patient Instructions Indication:BMI 35.0-35.9,adult Start:15-Dec-2016 Instruction Type:Provider Instructions for Treatment How to access health informa tion online Indication:Chronic asthma, unspecified asthma severity, uncomplicated Start:12-Sep-2016 Instruction Type:Patient Education How to access health informa tion online - Detail Indication:Chronic asthma, unspecified asthma severity, uncomplicated Start:12-Sep-2016 Instruction Type:Patient Education Patient Instructions Indication:Chronic asthma, unspecified asthma severity, uncomplicated Start:12-Sep-2016 Instruction Type:Provider Instructions for Treatment How to access health informa tion online Indication:Acute asthma flare Start:08-Sep-2016 Instruction Type:Patient Education How to access health informa tion online - Detail Indication:Acute asthma flare Start:08-Sep-2016 Instruction Type:Patient Education Patient Instructions Indication:Acute asthma flare Start:08-Sep-2016 Instruction Type:Provider Instructions for Treatment How to access health informa tion online Indication:Acute asthma flare Start:01-Sep-2016 Instruction Type:Patient Education How to access health informa tion online - Detail Indication:Acute asthma flare Start:01-Sep-2016 Instruction Type:Patient Education Patient Instructions Indication:Acute asthma flare Start:01-Sep-2016 Instruction Type:Provider Instructions for Treatment How to access health informa tion online Indication:Non-smoker Start:25-Aug-2016 Instruction Type:Patient Education How to access health informa tion online - Detail Indication:Non-smoker Start:25-Aug-2016 Instruction Type:Patient Education Patient Instructions Indication:Non-smoker Start:25-Aug-2016 Instruction Type:Provider Instructions for Treatment How to access health informa tion online Indication:BMI 34.0-34.9,adult Start:21-Jul-2016 Instruction Type:Patient Education How to access health informa tion online - Detail Indication:BMI 34.0-34.9,adult Start:21-Jul-2016 Instruction Type:Patient Education Patient Instructions Indication:BMI 34.0-34.9,adult Start:21-Jul-2016 Instruction Type:Provider Instructions for Treatment How to access health informa tion online Indication:Non-smoker Start:15-Apr-2016 Instruction Type:Patient Education How to access health informa tion online - Detail Indication:Non-smoker Start:15-Apr-2016 Instruction Type:Patient Education Patient Instructions Indication:Non-smoker Start:15-Apr-2016 Instruction Type:Provider Instructions for Treatment How to access health informa tion online Indication:Non-smoker Start:13-Mar-2016 Instruction Type:Patient Education How to access health informa tion online - Detail Indication:Non-smoker Start:13-Mar-2016 Instruction Type:Patient Education Patient Instructions Indication:Non-smoker Start:13-Mar-2016 Instruction Type:Provider Instructions for Treatment How to access health informa tion online Indication:Hypertension Start:07-Feb-2016 Instruction Type:Patient Education How to access health informa tion online - Detail Indication:Hypertension Start:07-Feb-2016 Instruction Type:Patient Education Patient Instructions Indication:Hypertension Start:07-Feb-2016 Instruction Type:Provider Instructions for Treatment How to access health informa tion online Indication:Sore throat Start:23-Jan-2016 Instruction Type:Patient Education How to access health informa tion online - Detail Indication:Sore throat Start:23-Jan-2016 Instruction Type:Patient Education Patient Instructions Indication:Sore throat Start:23-Jan-2016 Instruction Type:Provider Instructions for Treatment How to access health informa tion online Indication:Non-smoker Start:08-Jan-2016 Instruction Type:Patient Education How to access health informa tion online - Detail Indication:Non-smoker Start:08-Jan-2016 Instruction Type:Patient Education Patient Instructions Indication:Non-smoker Start:08-Jan-2016 Instruction Type:Provider Instructions for Treatment Chief Complaint and Reason for Visit Chief Complaint Injection 6 M FU Injection 6 M FU SCREENING Injection Reason for Visit [id number] Essential hypertension Hyperlipidemia Asthma Seasonal allergic rhinitis Chief Complaint Injection 6 M FU SCREENING Injection BURNING WITH URINATION/ABD PAIN Reason for Visit Asthma Seasonal allergic rhinitis Chief Complaint Injection 6 M FU Injection Reason for Visit Asthma Chief Complaint Injection 6 M FU Injection Injection FATTY LIVER Reason for Visit Asthma Chief Complaint Injection Injection FATTY LIVER ABD PAIN, FATTY LIVER, PSC Chief Complaint ABD PAIN, FATTY LIVE R, PSC Injection 6 M FU Low back pain, unspecified Reason for Visit Asthma Obesity Seasonal allergic rhinitis Chief Complaint Injection 6 M FU Low back pain, unspecified SCREENING/POST ОЛЬГА Reason for Visit Asthma Obesity Seasonal allergic rhinitis Chief Complaint Low back pain, unspe cified SCREENING/POST ОЛЬГА Injection back asthma- severe persistent asthma GI UPSET Chief Complaint Injection back asthma- severe persistent asthma GI UPSET LUMBAR RAD Chief Complaint Admit Date UTI January 21, 2024 1 2:20pm Leaking bowel January 27, 2024 9:56am 1 M FU March 01, 2024 9 :51am ABD PAIN April 26, 2024 6:5 5pm Reason for Visit Admit Date Fecal incontinence January 27, 2024 9:56am GERD (gastroesophageal reflux disease) D ecember 2023 9:56am Irritable bowel syndrome with diarrhea D ecember 2023 9:56am Fecal incontinence March 01, 2024 9 :51am GERD (gastroesophageal reflux disease) J anuary 2024 9:51am STEVEN (nonalcoholic steatohepatitis) Mariano silva 2024 9:51am Chief Complaint Admit Date Follow Up May 03, 2024 2:1 2pm 1 Y FU August 29, 2024 9:15 am Reason for Visit Admit Date Epigastric pain May 03, 2024 2:1 2pm Chief Complaint New patient visit consult for pancreatic cyst Additional Source Comments INFORMATION SOURCE (unrecogn ized section and content) DATE CREATED AUTHOR 08/05/2017 [facility] DATE CREATED AUTHOR AUTHOR'S ORGANIZ ATION 08/11/2017 [facility] DATE CREATED AUTHOR AUTHOR'S ORGANIZ ATION 02/27/2022 [facility] DATE CREATED AUTHOR AUTHOR'S ORGANIZ ATION 04/17/2022 [employer] DATE CREATED AUTHOR AUTHOR'S ORGANIZ ATION 04/18/2022 [facility] DATE CREATED AUTHOR AUTHOR'S ORGANIZ ATION 06/07/2022 [facility] DATE CREATED AUTHOR AUTHOR'S ORGANIZ ATION 02/08/2023 [facility] DATE CREATED AUTHOR AUTHOR'S ORGANIZ ATION 09/08/2023 [facility] DATE CREATED AUTHOR AUTHOR'S ORGANIZ ATION [facility] Goals (unrecognized section and content) Goals may be documented in a n alternate sectionGoals may be documented in an alternate sectionGoals may be documented in an alternate sectionGoals may be documented in an alternate sectionGoals may be documented in an alternate sectionGoals may be documented in an alternate sectionGoals may be documented in an alternate sectionGoals may be documented in an alternate sectionGoals may be documented in an alternate sectionGoals may be documented in an alternate sectionGoals may be documented in an alternate sectionGoals may be documented in an alternate section Care Teams (unrecognized sec tion and content) Team Status: Active Member Role Status Dates Dr. Elin Reynolds DO Family Provider Active Dr. Elin Reynolds DO Primary Care Provider Active Team Status: Inactive Member Role Status Dates Dr. Elin Yessi , DO Primary Care Provider, Referr ing Provider Active Dr. Ayush Leblanc , DO Attending Provider Active Team Status: Inactive Member Role Status Dates Dr. Elin Reynolds , DO Primary Care Provider Active Roya Oliveira DISHTANK OPERATOR, DISHTANK OPERATOR-C Attending Provider, Referrin g Provider Active Team Status: Inactive Member Role Status Dates Dr. Elin Reynolds , DO Primary Care Provider Active Dr. Dinora Hemphill MD Attending Provider, Referr ing Provider Active Team Status: Inactive Member Role Status Dates Dr. Elin Reynolds , DO Primary Care Provider, Referr ing Provider Active Roya Oliveira DISHTANK OPERATOR, DISHTANK OPERATOR-C Attending Provider Active Team Status: Inactive Member Role Status Dates Dr. Elin Reynolds , DO Primary Care Provider Active SHANNA FARIAS Attending Provider Active Team Status: Active Member Role Status Dates Dr. Elin Reynolds , DO Primary Care Provider Active Dr. Dinora Hemphill MD Attending Provider, Referr ing Provider Active Team Status: Inactive Member Role Status Dates Dr. Elin Reynolds , DO Primary Care Pr ovider, Attending Provider, Referring Provider Active Team Status: Inactive Member Role Status Dates Dr. Elin Reynolds DO Primary Care Provider Active Dr. Felipe Chappell MD Attending Provider, Referring Pr ovider Active Team Status: Inactive Member Role Status Dates Dr. Elin Reynolds , DO Primary Care Provider, Referr ing Provider Active Dr. Darrick Kramer MD Attending Provider Active Team Status: Inactive Member Role Status Dates Dr. Elin Reynolds , DO Primary Care Provider Active Dr. Lei Piña , DO Attending Provider, Emergency P roroberto carlos Active Team Status: Inactive Member Role Status Dates Dr. Elin Reynolds , DO Primary Care Pr ovider, Attending Provider, Referring Provider Active PRADIP SHEPHERD Other Provider Active Knee Bolter Relationship Specialty Start Date End Date Elin Reynolds DO [address] [facility] [address] [place] [address] PCP - General 11/24/16 Knee Bolter Relationship Specialty Start Date End Date Elin Reynolds DO [address] [facility] [address] [place], [place] [id number] [phone] (work) PCP - General 11/24/16 Team Status: Active Member Role Status Dates Dr. Elin Reynolds DO Primary Care Provider Active Team Status: Inactive Member Role Status Dates Dr. Elin Reynolds DO Primary Care Provider Active Start: January 21, 2024 End: January 21, 2024 Dr. Valentine Salmon MD Attending Provider Active Start: January 21, 2024 End: January 21, 2024 Dr. Valentine Salmon MD Referring Provider Active Start: January 21, 2024 End: January 21, 2024 Team Status: Inactive Member Role Status Dates Dr. Elin Reynolds DO Primary Care Provider Active Start: January 27, 2024 End: January 27, 2024 MOLLY Castaneda Attending Provider Active Start: January 27, 2024 End: January 27, 2024 Dr. Valentine Salmon MD Referring Provider Active Start: January 27, 2024 End: January 27, 2024 Team Status: Inactive Member Role Status Dates Dr. Elin Reynolds DO Primary Care Provider Active Start: March 01, 2024 End: March 01, 2024 Dr. Elin Reynolds DO Referring Provider Active Start: March 01, 2024 End: March 01, 2024 MOLLY Castaneda Attending Provider Active Start: March 01, 2024 End: March 01, 2024 Team Status: Inactive Member Role Status Dates Dr. Elin Reynolds DO Primary Care Provider Active Start: April 26, 2024 End: April 26, 2024 Dr. Bruno Rae DO Emergency Provider Active Start : April 26, 2024 End: April 26, 2024 Team Status: Active Member Role/Relationship Status Dates Dr. Elin Reynolds DO Primary Care Provider Active Team Status: Inactive Member Role/Relationship Status Dates Dr. Elin Reynolds DO Primary Care Provider Active Start: May 03, 2024 End: May 03, 2024 Dr. Elin Reynolds DO Referring Provider Active Start: May 03, 2024 End: May 03, 2024 MOLLY Castaneda Attending Provider Active Start: May 03, 2024 End: May 03, 2024 Team Status: Inactive Member Role/Relationship Status Dates Dr. Elin Reynolds DO Primary Care Provider Active Start: August 29, 2024 End: August 29, 2024 Dr. Elin Reynolds DO Referring Provider Active Start: August 29, 2024 End: August 29, 2024 Roya Oliveira DISHTANK OPERATOR, DISHTANK OPERATOR-C Attending Provider Active Start: August 29, 2024 End: August 29, 2024 Reason for Visit (unrecogniz ed section and content) Reason Comments Follow-up Pain FOR RECORDS PERTAINING TO PATIENTS WHO ARE OR HAVE BEEN ENROLLED IN A CHEMICAL DEPENDENCY/SUBSTANCEABUSE PROGRAM, SOME INFORMATION MAY BE OMITTED. This clinical summary was aggregated from multiple sources. Caution should be exercised in using it in the provision of clinical care. This summary normalizes information from multiple sources, and as a consequence, information in this document may materially change the coding, format and clinical context of patient data. In addition, data may be omitted in some cases. CLINICAL DECISIONS SHOULD BE BASED ON THE PRIMARY CLINICAL RECORDS. [facility] [employer] provides no warranty or guarantee of the accuracy or completeness of information in this document.
[2025-02-04] MEDS: LACTATED RINGERS 500 ML 999 ML IV (21:18)
== END 2025-02-04 23:31 | disposition home or self-care (01) ==
PROVIDERS: Emergency Provider Emergency Medicine; PCP Family Medicine; Visit Provider Emergency Medicine
DX: H81.13 Benign paroxysmal vertigo, bilateral (principal); J44.9 Chronic obstructive pulmonary disease, unspecified; E11.9 Type 2 diabetes mellitus without complications; B34.9 Viral infection, unspecified; I10 Essential (primary) hypertension; I25.10 Atherosclerotic heart disease of native coronary artery without angina pectoris; K75.81 Nonalcoholic steatohepatitis (NASH); Z23 Encounter for immunization; Z79.51 Long term (current) use of inhaled steroids; Z79.84 Long term (current) use of oral hypoglycemic drugs; Z86.16 Personal history of COVID-19; Z86.73 Personal history of transient ischemic attack (TIA), and cerebral infarction without residual deficits
CPT/HCPCS: 96365; 96375; 96376; 80048; 84443; 85025; 90471; 93005; 99285; A4216; J2405